=== PATIENT | male | born 1970 | race Caucasian/White ===

== ENCOUNTER 2019-08-21 08:22 | Emergency (ER) | payer SELFPAY ==
[2019-08-21 08:24] VITALS: BP 161/97; PULSE 94; RESP 20; TEMP 36.6; O2SAT 96; BMI 37.0
--- NOTE | 2019-08-21 08:33 | ED.VIS.GEN ---
History of Present Illness Chief Complaint: Edema Informant: Patient Onset: Days Context: Gradual Onset Timing: Continuous Current Severity: Moderate Maximum Severity: Moderate Narrative: The patient presents to the emergency department with swelling under his chin. He thinks that he may be having an allergic reaction. He is also had lymphadenopathy that he is been seen here before a few years ago. The patient thinks he may have an underlying allergy to shrimp. He does work at the [employer]. He states his been eating shrimp. He is noted some swelling at the base of his chin. He denies any change in speech. He denies any trouble lying flat. He denies any shortness of breath. He said no fever or chills. Prior similar symptoms: No Recent Illness/Hospitalization: No Past Medical History - Allergies and Home Meds Allergies/Adverse Reactions: Allergies No Known Allergies Allergy (Verified 08/21/19 08:27) Primary Care Physician: Care Physician,No Primary [Primary Care Provider] - Prior records reviewed: Yes Past Medical History: None Smoking Status: Current every day smoker Review of Systems General: Denies: Chills, Fever, Sweats Eyes: Denies: Visual changes - bilaterally, Diplopia ENT: Denies: Rhinorrhea, Sore throat Cardiovascular: Denies: Chest pain, Palpitations Respiratory: Denies: Dyspnea, Cough, Dyspnea on exertion Gastrointestinal: Denies: Abdominal pain, Nausea, Vomiting, Diarrhea, Melena, Hematochezia Genitourinary: Denies: Dysuria, Hematuria, Frequency Musculoskeletal: Denies: Back pain, Extremity Pain Skin: Denies: Rash, Wounds Neurological: Denies: Headache, Weakness, Numbness Physical Exam Vital Signs/Narrative: Vital Signs Temp Pulse Resp BP Pulse Ox 08/21/19 08:24 98 F 94 20 H 161/97 H 96 Inital Vital Signs reviewed: Yes General: Well nourished, Well developed, No Acute Distress Head: Normocephalic, Atraumatic Eyes: Perrl, EOMI ENT: Moist mucous membranes, No rhinorrhea, TM's clear. Negative for: Nasal congestion Neck: Supple, Nontender, - - Tender lymphadenopathy in the anterior cervical chain. Oropharynx is widely patent. Submental space is soft. No trismus. No stridor. Cardiovascular: Regular rate, Regular rhythm, No murmurs Respiratory: No distress, CTA bilaterally, Chest nontender Abdomen: Soft, Nontender, Nondistended, Normal bowel sounds Back: Nontender, Normal Inspection Extremities: Nontender, No edema Skin: Normal color, No rash Neurological: Alert, Oriented x3, Cranial nerves II-XII grossly intact, Normal Strength, Normal Sensation Psychological: Normal affect, Normal Mood Diagnostic/Tx/Re-eval - Medical Decision Making My suspicion is that the patient is likely having a lymphadenitis. I am not sure if this is allergic or infectious. He does have some widespread dental disease, but no focal abscess. The patient will be given a dose of Decadron. Also can place him on clindamycin. Again, this area is soft. There is no evidence of airway compromise. I do feel he is safe for outpatient therapy. He is comfortable with this plan of care. Impression 1. Cervical lymphadenitis ED Disposition - Plan for ED Patient: Instructions: CERVICAL ADENITIS, Antiobiotic Treatment Prescriptions: Clindamycin [Cleocin] 300 mg PO 4X/DAY #80 cap Prescription Printed Referrals: Care Physician,No Primary [Primary Care Provider] -
[2019-08-21] MEDS: dexAMETHasone 10 MG/ML Vial PO.IVFORM (08:43)
== END 2019-08-21 08:52 | disposition home or self-care (01) ==
LOC: ED 08:41
PROVIDERS: Emergency Provider Emergency Medicine
DX: I88.8 Other nonspecific lymphadenitis (principal); F17.200 Nicotine dependence, unspecified, uncomplicated
CPT/HCPCS: 99282

== ENCOUNTER 2019-12-18 01:13 | Inpatient (IN) | payer SELFPAY ==
[2019-12-18] VITALS (8 sets, daily range): BP systolic 145–162; BP diastolic 60–120; PULSE 60–88; RESP 16–21; TEMP 36.6–36.7; O2SAT 93–98; BMI 43.6; BMI 38.2; BMI 38.3
--- NOTE | 2019-12-18 01:26 | CT_ITS ---
STUDY: CT ABDOMEN AND PELVIS WITHOUT CONTRAST REASON FOR EXAM: Male, 49 years old. ABD PAIN X 4 DAYS, CONSTIPATION RADIATION DOSAGE (If Supplied By Facility): CTDIvol = ( 18.30 ) mGy, DLP = ( 1304.58 ) mGycm TECHNIQUE: Transaxial images were obtained from the dome of the diaphragm to the symphysis pubis without oral contrast, and without intravenous contrast. Sagittal and coronal images were reconstructed. Individualized dose optimization techniques were used for this CT. COMPARISON: None. FINDINGS: The visualized lung bases are unremarkable. The visualized portions of the heart are within normal limits. Normal liver. The gallbladder is contracted. Normal spleen. Minimal strandy surrounding the pancreas suggestive of pancreatitis. Normal bilateral adrenal glands. Normal right kidney. Normal left kidney. Normal visualized stomach. Normal small intestine. There is mild diverticulosis without signs of diverticulitis. Otherwise: Is unremarkable. The appendix is visualized and appears normal. There is mild atherosclerotic calcification of the abdominal aorta, without a demonstrated aneurysm. Normal inferior vena cava. Normal retroperitoneum. Normal urinary bladder. Normal abdominal wall. Degenerative disease at L5-S1 with mild, grade 1 anterolisthesis of L5 on S1. CT/Abdomen/Pelvis W IV Cont ONLY IMPRESSION: Findings suggestive of early/mild pancreatitis, correlation with amylase and lipase recommended. No bowel obstruction. No acute appendicitis. Contracted gallbladder, remainder of abdominal viscera are unremarkable. Electronically Signed: Debo Talbert MD at 3:30 EST , Service support ,
--- NOTE | 2019-12-18 01:26 | EKG12_ITS ---
Test Reason : ABD PAIN Blood Pressure : / mmHG Vent. Rate : 078 BPM Atrial Rate : 078 BPM P-R Int : 166 ms QRS Dur : 084 ms QT Int : 384 ms P-R-T Axes : 038 006 006 degrees QTc Int : 437 ms Normal sinus rhythm Poor R- wave Progression Confirmed by ISABELA PORTER, MELANIE ([id number]), offline editor BETTY MANSFIELD ([id number]) on 12/19/2019 10:03:10 AM Referred By: Feng Oleary Confirmed By:MELANIE MAR MD
--- NOTE | 2019-12-18 01:27 | ED.VIS.GI ---
History of Present Illness Chief Complaint: Abd Pain Informant: Patient - Abdominal Pain/Flank Pain Onset: Days Context: Gradual Onset Timing: Continuous Quality: Dull Location: RUQ - Nausea/Vomiting/Emesis GI Symptom: Nausea. Negative for: Vomiting - Diarrhea/Melena/Hematochezia GI Symptom: - - Constipation. Negative for: Diarrhea, Melena, Hematochezia Narrative: Patient is a 49-year-old male with no known past medical history presenting with worsening abdominal discomfort. Patient states he started having epigastric/right upper quadrant abdominal pain 3 to 4 days ago. He states his pain is dull and does not radiate. It seems to come and go but is been worse today. He also feels very bloated and he feels like his abdomen is distended. He has had intermittent nausea but no vomiting. He states he has been feeling constipated and since 12 PM, 13 hours ago, he has not passed gas or had a bowel movement. He denies any associated chest pain, shortness of breath or urinary symptoms. He states he is been trying to increase his water intake with no help. He is not recall any aggravating or alleviating factors. He denies any other complaints at this time. Past Medical History - Allergies and Home Meds Allergies/Adverse Reactions: Allergies No Known Allergies Allergy (Verified 12/18/19 01:17) Primary Care Physician: Care Physician,No Primary [Primary Care Provider] - Lives: Roommate Smoking Status: Current every day smoker Alcohol: Occasional Drugs: Marijuana Review of Systems General: Denies: Chills, Fever, Sweats Eyes: Denies: Visual changes - bilaterally, Diplopia ENT: Denies: Rhinorrhea, Sore throat Cardiovascular: Denies: Chest pain, Palpitations Respiratory: Denies: Dyspnea, Cough, Dyspnea on exertion Gastrointestinal: Reports: Abdominal pain, Nausea, Vomiting, Constipation. Denies: Diarrhea, Melena, Hematochezia Genitourinary: Denies: Dysuria, Hematuria, Frequency Musculoskeletal: Denies: Back pain, Extremity Pain Skin: Denies: Rash, Wounds Neurological: Denies: Headache, Weakness, Numbness Physical Exam Vital Signs/Narrative: Vital Signs Temp Pulse Resp BP Pulse Ox 12/18/19 01:13 98.0 F 80 18 162/120 H 98 Inital Vital Signs reviewed: Yes General: Well nourished, Well developed, No Acute Distress Head: Normocephalic, Atraumatic Eyes: Perrl, EOMI ENT: Moist mucous membranes, No rhinorrhea Neck: Supple, Nontender Cardiovascular: Regular rate, Regular rhythm, No murmurs Respiratory: No distress, CTA bilaterally, Chest nontender Abdomen: Soft, Nondistended, Normal bowel sounds, No masses, Tender - epigastric. Negative for: Guarding, Rebound tenderness Back: Nontender, Normal Inspection. Negative for: CVA tenderness Extremities: Nontender, No edema Skin: Normal color, No rash Neurological: Alert, Oriented x3, Cranial nerves II-XII grossly intact, Normal Strength, Normal Sensation Psychological: Normal affect, Normal Mood Diagnostic/Tx/Re-eval Clinical Impression(s) from Imaging Studies Abdomen/Pelvis CT 12/18/19 01:26 IMPRESSION: Findings suggestive of early/mild pancreatitis, correlation with amylase and lipase recommended. No bowel obstruction. No acute appendicitis. Contracted gallbladder, remainder of abdominal viscera are unremarkable. Electronically Signed: Debo Talbert MD at 3:30 EST , Service support , Laboratory Data 12/18/19 12/18/19 12/18/19 01:20 01:20 01:55 WBC 12.0 H RBC 5.87 Hgb 18.2 H* Hct 52.9 MCV 90.1 MCH 31.0 MCHC 34.4 RDW Std Deviation 43.7 RDW Coeff of Jamaal 13.1 Plt Count 212 MPV 10.5 Immature Gran % (Auto) 0.200 Neut % (Auto) 67.1 Lymph % (Auto) 21.4 [place] % (Auto) 8.2 Eos % (Auto) 2.8 Baso % (Auto) 0.3 Absolute Neuts (auto) 8.1 H Absolute Lymphs (auto) 2.57 Nucleated RBC % 0 Diff Path Review May foll Sodium 135 L Potassium 3.9 Chloride 102 Carbon Dioxide 28.0 Anion Gap 5 BUN 15 Creatinine 1.00 Estim Creat Clear Calc 85.38 Est GFR (MDRD) Af Amer 103 Est GFR (MDRD) Non-Af 85 BUN/Creatinine Ratio 15.0 Glucose 132 H Calcium 9.7 Troponin I < 0.015 Lipase 4794 H Urine Color Yellow Urine Clarity Clear Urine pH 6.0 Ur Specific [place] 1.015 Urine Protein Negative Urine Glucose (UA) Normal Urine Ketones Negative Urine Occult Blood Negative Urine Nitrite Negative Urine Bilirubin Negative Urine Urobilinogen Normal Ur Leukocyte Esterase Negative Urine RBC 0 SEEN Urine WBC 0 SEEN Ur Squamous Epith Cells 0 SEEN Urine Bacteria 0 SEEN Urine Mucus 0 SEEN - Medical Decision Making Patient is evaluated for 4 to 5 days of worsening epigastric abdominal pain. He appears nontoxic in no acute distress. His have tenderness in his epigastric region. Patient is hypertensive initially. He does not regularly go to a doctor. CBC, CMP, lipase, troponin and UA are checked. Lab work is grossly normal except for elevated lipase which is consistent with pancreatitis. This fits patient's clinical picture. Patient is given a liter of fluids as well as Zofran, IV Pepcid and morphine in the emergency room. Patient does have improvement of his symptoms with IV morphine. He states he would like to be admitted for further pain control and fluids. I think this is reasonable given his degree of elevated lipase and symptoms. Patient is stable for general medical floor at time of disposition. Patient's hemoglobin is elevated. Likely he is hemoconcentrated. He is given a second liter of IV fluids. Patient does state that he used to drink heavily but does not anymore. He states his last drink was the day before his symptoms started. He states he only had one beer at that time. This could be the cause of his pancreatitis. ED Disposition - Plan for ED Patient: Diagnosis: Acute pancreatitis Referrals: Care Physician,No Primary [Primary Care Provider] -
[2019-12-18 01:37] LABS: Absolute Lymphocyte Count 2.57 X10^3/uL (0.83-4.51); Absolute Neutrophil Count 8.1 X10^3/uL (2.0-7.7); Basophil# 0.04 X10^3/uL; Basophil% 0.3 % (0-1); Eosinophil# 0.34 X10^3/uL; Eosinophils% 2.8 % (0-5); Hematocrit 52.9 % (40-54); Lymphocyte # 2.57 X10^3/ul (4.0); Lymphocyte % 21.4 % (19-41); Mean Corp Hgb Conc 34.4 g/dL (32-36); Mean Corpuscular Volume 90.1 fL (80-94); Mean Platelet Vol. 10.5 fl (6.2-12.0); Monocyte# 0.98 X10^3/uL; Monocyte% 8.2 % (0-10); NRBC Flagged by Analyzer 0 % (0-5); Neutrophil # 8.06 X10^3/uL (2.7-7.7); Neutrophil % 67.1 % (47-70); Platelet Count 212 K/mm3 (150-450); RBC Distribution Width CV 13.1 % (11.6-14.6); RBC Distribution Width SD 43.7 fl (35.1-43.9); Red Blood Count 5.87 M/mm3 (4.6-6.2)
[2019-12-18] MEDS: Famotidine 200 MG/20 ML MDV 20 MG in 0.9% Normal Saline (Pres. free 8 ML 300 MG IV (01:48)
[2019-12-18] MEDS: 0.9% Normal Saline 1,000 ML 1000 ML IV (01:48)
[2019-12-18] MEDS: Ondansetron 4 MG/2 ML Vial IV (01:48)
[2019-12-18 01:52] LABS: Anion Gap 5 (5-15); BUN 15 mg/dL (7-18); Calcium,Total 9.7 mg/dL (8.5-10.1); Chloride 102 mmol/L (98-107); EST Glomerular Filtration Rate 85 mL/min (>60); Est Glom Filt Rate - Afr Amer 103 mL/min (>60); Estimated Creatinine Clearance 85.38 ml/min; Glucose 132 mg/dL (74-106); Lipase 4794 U/L (73-393); Potassium 3.9 mmol/L (3.5-5.1); Sodium Level 135 mmol/L (136-145)
[2019-12-18 02:01] LABS: Hemoglobin 18.2 g/dL (13.0-16.5)
[2019-12-18 02:06] LABS: Bacteria 0 SEEN /hpf (None Seen); Color, Urine Yellow (Yellow); Glucose, Dipstick Normal (Normal); Ketone-Dipstick Negative (Negative); Leukocyte Esterase-Dipstick Negative /ul (Negative); Mucous, Urine 0 SEEN /hpf (<or=2+); Nitrite-Dipstick Negative (Negative); Occult Blood-Urine Negative /ul (Negative); Protein-Dipstick Negative (Negative); Red Blood Cells-Urine 0 SEEN /hpf (0-5); Specific Gravity, Urine 1.015 (1.002-1.030); Squamous Epithelial Cells - UA 0 SEEN /hpf (0-5); Urine Bilirubin Dipstick Negative (Negative); Urine Clarity Clear (Clear); Urine Urobilinogen Normal (Normal); White Blood Cells 0 SEEN /hpf (0-5)
[2019-12-18] MEDS: morphine 8 MG/ML Syringe 6 MG IV (02:31)
--- NOTE | 2019-12-18 03:52 | PCM.HP.STD ---
Problem List (1) Alcohol abuse Status: Acute (2) Acute pancreatitis Status: Acute History of Present Illness Date of Admission: 12/18/19 Chief Complaint: abdominal pain The patient is a 49 year old M with a significant history of alcoholism who presents emergency department with upper abdominal pain. His abdominal pain is constant with a severity 4-5 on a scale of 1-10. Occasionally his pain increases to an 8. He describes his pain as aching with intermittent stabbing pain. He denies any ameliorating or aggravating factors. Associated with symptoms is mild nausea. His bowels moved a day before presentation. He reports that he drinks heavily. Last time he drank was about 3 days ago. He drinks beer. At times he drinks 2-3 beers per day. Other times he drank about 12 bottles of beer. At the emergency department his lipase is found to be severely elevated. Past Medical History Medical History: Medical History (Last Updated 12/18/19 @ 04:41 by Feng Oleary MD) No previous significant medical history Allergies No Known Allergies Allergy (Verified 12/18/19 01:17) Home Medications: Ambulatory Orders Medication Instructions Recorded NK 12/18/19 Surgical History: - - Surgery to correct pyloric stenosis when he was a child. Lives: Roommate Smoking Status: Current every day smoker Alcohol: Heavy Drugs: Marijuana - *Family History Maternal History Items: Diabetes Paternal History Items: - - Patient does not know paternal medical history. Review of Systems Constitutional: Denies: Chills, Fever, Weight Change HEENT: Denies: Head Aches, Sinus Congestion, Sinus Drainage Cardiovascular: Denies: Chest Pain, Palpitations Respiratory: Denies: Cough, Shortness of breath at rest, Sputum production Gastrointestinal: Reports: Abdominal Pain, Nausea. Denies: Vomiting Genitourinary: Denies: Dysuria Musculoskeletal: Denies: Joint Pain, Joint Tenderness Skin: Denies: Rash, Wounds Neurological: Denies: Numbness, Tingling, Focal weakness Psychiatric: Denies: Anxiety, Depression, Homicidal Ideations, Suicidal Ideations Hematologic/ Lymphatic: Denies: Easy Bruising, Easy Bleeding VTE Information - Inpt Only VTE Present on Admission: No VTE Mechan Device Prophylaxis: None VTE Pharm Prophylaxis ordered?: Yes Patient Problems: Active and Suspected Problems Acute pancreatitis (Acute) Alcohol abuse (Acute) - Physical Exam Vitals/I&O's: Vital Signs Temp Pulse Resp BP Pulse Ox 98.0 F 80 18 162/120 H 98 12/18/19 01:13 12/18/19 01:13 12/18/19 01:13 12/18/19 01:13 12/18/19 01:13 Oxygen Delivery Method Room Air Weight: 126.3 kg Body Mass Index (BMI) 43.6 Intake and Output for Last 24 Hours 12/16/19 12/17/19 12/18/19 23:59 23:59 23:59 Intake Total Balance General: Alert, Oriented x3, Cooperative HEENT: Atraumatic, PERRLA, EOMI, Normocephalic Neck: Supple, No JVD, Negative Carotid Bruits Lungs: Clear to auscultation, Normal air movement Cardiovascular: Regular rate, No murmurs Abdomen: Bowel Sounds Present, Soft, Tender Extremities: No edema, Capillary Refill Less than 3 Seconds Skin: No rashes, No breakdown Musculoskeletal: No Tenderness to Palpation of Joints or Extremities Neurological: Cranial nerves II-XII grossly intact Psych/Mental Status: Normal Affect, Appropriate Laboratory Results 12/18/19 01:20: WBC 12.0 H, RBC 5.87, Hgb 18.2 H*, Hct 52.9, MCV 90.1, MCH 31.0, MCHC 34.4, RDW Std Deviation 43.7, RDW Coeff of Jamaal 13.1, Plt Count 212, MPV 10.5, Immature Gran % (Auto) 0.200, Neut % (Auto) 67.1, Lymph % (Auto) 21.4, [place] % (Auto) 8.2, Eos % (Auto) 2.8, Baso % (Auto) 0.3, Absolute Neuts (auto) 8.1 H, Absolute Lymphs (auto) 2.57, Nucleated RBC % 0, Diff Path Review March12/18/19 01:20: Sodium 135 L, Potassium 3.9, Chloride 102, Carbon Dioxide 28.0, Anion Gap 5, BUN 15, Creatinine 1.00, Estim Creat Clear Calc 85.38, Est GFR (MDRD) Af Amer 103, Est GFR (MDRD) Non-Af 85, BUN/Creatinine Ratio 15.0, Glucose 132 H, Calcium 9.7, Troponin I < 0.015, Lipase 4794 H 12/18/19 01:55: Urine Color Yellow, Urine Clarity Clear, Urine pH 6.0, Ur Specific [place] 1.015, Urine Protein Negative, Urine Glucose (UA) Normal, Urine Ketones Negative, Urine Occult Blood Negative, Urine Nitrite Negative, Urine Bilirubin Negative, Urine Urobilinogen Normal, Ur Leukocyte Esterase Negative, Urine RBC 0 SEEN, Urine WBC 0 SEEN, Ur Squamous Epith Cells 0 SEEN, Urine Bacteria 0 SEEN, Urine Mucus 0 SEEN Current Medications Sodium Chloride () 1,000 mls @ 999 mls/hr IV .Q1H1M ONE Stop: 12/18/19 04:43 Assessment/Plan All Active Problems Acute pancreatitis (Acute) Alcohol abuse (Acute) The patient is a 49 year old M with a significant history of alcoholism who presents at the emergency department with upper abdominal pain; alcoholism and elevated lipase consistent with acute pancreatitis. Acute Pancreatitis Received NSS IV fluid bolus AT the emergency department. Start patient on lactated Ringer's Get stat lipid level. We will keep patient n.p.o. for ultrasound of her right upper quadrant. Abdomen pelvis CT showed a contracted gallbladder. Morphine prn for pain. Zofran as needed for nausea. Alcoholism We will put on CIWA protocol with as needed Ativan. While n.p.o. we will give one-time dose of thiamine IV; folic acid IV and multivitamin IV. Anticipate that patient will be started on a diet on and medication can be changed to p.o. if necessary. Check liver profile. Check magnesium. Tobacco abuse Counseled Declined nicotine patch Marijuana abuse Counseled. DVT prophylaxis SCD. Code Visit Inpatient E&M: 16435 Init Hosp L3
[2019-12-18] MEDS: 0.9% Normal Saline 1,000 ML 999 ML IV (04:20)
[2019-12-18 04:44] LABS: Magnesium 1.8 mg/dL (1.6-2.6)
[2019-12-18 05:03] LABS: Cholesterol 219 mg/dL (200); High Density Lipoprotein 32 mg/dL; Triglycerides 344 mg/dL; Very Low Density Lipoprotein 69 mg/dL (5-40)
[2019-12-18 05:04] LABS: AST(SGOT) 24 U/L (15-37); Alanine Aminotransfer ALT/SGPT 36 U/L (16-61); Albumin, Serum 3.5 g/dL (3.2-5.0); Alkaline Phosphatase 95 U/L (45-117); Bilirubin, Direct < 0.05 mg/dL (0.00-0.30); Globulin 3.9 g/dL (2.2-4.2); Protein, Total 7.4 g/dL (6.4-8.2)
[2019-12-18] MEDS: Morphine 2 MG/ML Syringe IV ×3 (05:25→19:50)
[2019-12-18] MEDS: Lactated Ringers 1,000 ML 250 ML IV ×5 (05:27→23:59)
--- NOTE | 2019-12-18 05:55 | US_ITS ---
STUDY: ABDOMINAL ULTRASOUND - RIGHT UPPER QUADRANT REASON FOR VISIT: Male, 49 years old RUQ PAIN, PANCREATITIS TECHNIQUE: Ultrasound evaluation of the right upper quadrant was performed with real-time and static dubose-scale imaging. TECHNICAL QUALITY: Limited. Examination limited by bowel gas. COMPARISON: None. FINDINGS: Liver: The liver measures 14.2 cm. There is increased echogenicity consistent with fatty infiltration. The bile ducts are within normal limits. There is hepatic color flow. The direction of portal flow is hepatopetal. There is no demonstrated mass lesion. Gallbladder: Normal distended gallbladder. The gallbladder wall is slightly thickened and measures 3.8 mm. There is a negative sonographic Gonzalez''s sign. There is no pericholecystic fluid. There are no gallstones. Common Bile Duct (C.B.D.): The common bile duct measures 4.8 mm. Pancreas: There is nonvisualization of the pancreas due to overlying bowel gas. Right Kidney: Normal size of the right kidney. The right kidney measures 11.6 cm x 5.5 cm x 6.9 cm. Normal renal cortex. The right cortex measures 2.1 cm. There is no demonstrated renal mass or cyst. There is no right hydronephrosis. US/Abdomen Limited IMPRESSION: Fatty infiltration of the liver. Mild degree of the gallbladder wall thickening. Electronically Signed: Casey Pemberton, at 10:05 EST , Service support ,
[2019-12-18] MEDS: Enoxaparin 40 MG/0.4 ML Syringe SC (09:21)
--- NOTE | 2019-12-18 10:22 | PN_ITS ---
Patient Problems: Active and Suspected Problems Acute pancreatitis (Acute) Alcohol abuse (Acute) Reason for Visit: pancreatitis Subjective: Pain better, but still ongoing. Pain in RUQ. Never had pancreatitis before. IN the past few years has cut back his alcohol. Was drinking an 18-pack/daily, now down to 6 pack or sometimes less/day. Vitals/I&O's: Vital Signs Temp Pulse Resp BP Pulse Ox 36.6 C 75 19 H 148/103 H 93 12/18/19 09:19 12/18/19 09:19 12/18/19 09:19 12/18/19 09:19 12/18/19 09:19 Oxygen Delivery Method Room Air Weight: 124.4 kg Body Mass Index (BMI) 38.2 Intake and Output for Last 24 Hours 12/16/19 12/17/19 12/18/19 23:59 23:59 23:59 Intake Total 2668.03 / 2668.03 Output Total 350 / 350 Balance 2318.03 / 2318.03 General: Alert, No apparent distress HEENT: Atraumatic, Normocephalic Oral: Moist Mucosa, No Gingival or Mucosal Lesions/ Ulcerations Neck: No Nodes, Trachea Midline Lungs: Clear to auscultation, Normal air movement, No rhonchi, No wheeze, No rales Cardiovascular: Regular rate, Regular Rhythm, Normal S1, Normal S2, No murmurs Abdomen: Bowel Sounds Present, Soft, Non-Distended, No Hepato-splenomegaly, Tender - RUQ Extremities: No edema, No Calf Tenderness Skin: No rashes, No breakdown Psych/Mental Status: Normal Affect, Appropriate Laboratory Results 12/18/19 01:20: WBC 12.0 H, RBC 5.87, Hgb 18.2 H*, Hct 52.9, MCV 90.1, MCH 31.0, MCHC 34.4, RDW Std Deviation 43.7, RDW Coeff of [place]al 13.1, Plt Count 212, MPV 10.5, Immature Gran % (Auto) 0.200, Neut % (Auto) 67.1, Lymph % (Auto) 21.4, [place] % (Auto) 8.2, Eos % (Auto) 2.8, Baso % (Auto) 0.3, Absolute Neuts (auto) 8.1 H, Absolute Lymphs (auto) 2.57, Nucleated RBC % 0, Diff Path Review March12/18/19 01:20: Sodium 135 L, Potassium 3.9, Chloride 102, Carbon Dioxide 28.0, Anion Gap 5, BUN 15, Creatinine 1.00, Estim Creat Clear Calc 85.38, Est GFR (MDRD) Af Amer 103, Est GFR (MDRD) Non-Af 85, BUN/Creatinine Ratio 15.0, Glucose 132 H, Calcium 9.7, Troponin I < 0.015, Lipase 4794 H 12/18/19 01:20: Magnesium 1.8 12/18/19 01:20: Total Bilirubin 0.50, Direct Bilirubin < 0.05, AST 24, ALT 36, Alkaline Phosphatase 95, Total Protein 7.4, Albumin 3.5, Globulin 3.9 12/18/19 01:20: Triglycerides 344 H, Cholesterol 219 H, LDL Cholesterol 118, VLDL Cholesterol 69 H, HDL Cholesterol 32 L 12/18/19 01:55: Urine Color Yellow, Urine Clarity Clear, Urine pH 6.0, Ur Specific [place] 1.015, Urine Protein Negative, Urine Glucose (UA) Normal, Urine Ketones Negative, Urine Occult Blood Negative, Urine Nitrite Negative, Urine Bilirubin Negative, Urine Urobilinogen Normal, Ur Leukocyte Esterase Negative, Urine RBC 0 SEEN, Urine WBC 0 SEEN, Ur Squamous Epith Cells 0 SEEN, Urine Bacteria 0 SEEN, Urine Mucus 0 SEEN Current Medications Enoxaparin Sodium (Lovenox) 40 mg SC DAILY [facility] Last Admin: 12/18/19 09:21 Dose: 40 mg Documented by: Glucagon () 1 mg IM .X1 PRN PRN Reason: Hypoglycemia Lactated Ringer's () 1,000 mls @ 250 mls/hr IV .Q4H [facility] Last Infusion: 12/18/19 08:00 Dose: 250 mls/hr Documented by: Dextrose (Dextrose 10%-Water) 250 mls @ 999 mls/hr IV .Q16M PRN; Protocol PRN Reason: HYPOGLYCEMIA Lorazepam (Ativan) 2 mg PO Q2H PRN PRN; Protocol PRN Reason: CIWA score > 8 but <15 Lorazepam (Ativan) 2 mg PO UD PRN; Protocol PRN Reason: CIWA score >/=15. Lorazepam (Ativan) 2 mg IV Q2H PRN PRN; Protocol PRN Reason: CIWA score > 8 but <15 Lorazepam (Ativan) 2 mg IV UD PRN; Protocol PRN Reason: CIWA score >/=15. Morphine Sulfate () 2 mg IV Q3H PRN PRN PRN Reason: Pain Score 6-10/10 Last Admin: 12/18/19 05:25 Dose: 2 mg Documented by: Ondansetron HCl (Zofran) 4 mg IV Q8H PRN PRN PRN Reason: NAUSEA/VOMITING Sodium Chloride () 10 - 40 ml IV UD PRN PRN Reason: SALINE FLUSH STROKE Vital Signs/Narrative: Vital Signs Temp Pulse Resp BP Pulse Ox 12/18/19 09:19 36.6 C 75 19 H 148/103 H 93 12/18/19 08:01 96 Medical Necessity - Tobacco Use Smoking Status: Current every day smoker Tobacco Use: Cigarettes Assessment/Plan All Active Problems Acute pancreatitis (Acute) Alcohol abuse (Acute) 1. acute pancreatitis * suspect due to alcohol * continue with IVF, pain control and antiemetics * US abd pending. May need to consult general surg if evidence of gallstones or choledocholithiasis 2. Alcohol abuse * advised cessation * thiamine and folate * no evidence of wd at this time. 3. VTE proph: enoxaparin Code Visit Procedures: Other Procedure - See Report - non-billable rounding
--- NOTE | 2019-12-18 11:45 | CASEMGMT ---
SIMONE CM Face to Face with patient for initial transition planning/care coordination assessment. RN CM introduced self and role at [facility]. Patient lying in bed, alert and oriented. Patient willing to participate in assessment and is able to answer all questions appropriately. Care providers, pharmacy, and demographics verified. Patient wishes to discharge home, denies need for home health at this time. Patient states he has no further needs or concerns at this time. CM to follow for discharge planning needs that may arise. PCP: No PCP. List of PCPs given to patient. Specialists: none Preferred Pharmacy: [facility] Insurance: [employer] Prescription Benefit: none Living Will/HPOA: none LNOK: Friend, Living Arrangements: Patient lives in an apartment with roommate. Patient is independent at home. Transportation: self/friend DME/HHC: Patient denies needs for DME or HHC at this time. Patient states he smoke 1/2 pack cigarette per day and drinks 6 pack of beer per day. Patient is interested in resources with quitting. SW notified for request for resources. Disposition Plan: Patient to discharge home with family support and follow-up plans in place. Vale JUARES, RN, CM
[2019-12-18 12:24] LABS: Pathologist Review Reviewed
--- NOTE | 2019-12-18 15:35 | CASEMGMT ---
Social Work Consult: Substance Abuse Informant: c java developer Met with patient in room. Introduced self as well as manager social work role. Patient agreeable to meet with this manager social work. Broached topic of substance abuse for patient. Patient stating to drink 12-18 12ounce beers a day but that this can fluctuate and at times patient will only drink a few or none at all. Patient stating there was also a time when patient would drink a bottle of liqueur in a day but it has been sometime since I did that. Patient denies any history of seeking help for alcohol abuse. Patient is interested in information. This manager social work providing patient with resources on substance abuse including AA meeting times and dates. Patient is not wanting to be set up with any appointments for intake at this time. Patient stating to also smoke daily, provided patient with information on smoking cessation program with [facility], patient was open to this. Patient denies any mental health history and states to have support from friends. Patient family lives in [place]. 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 Patient goal oriented. Patient with positive affect but also stating to have a headache due to patient being NPO at this time. Patient has own apartment that patient shared with a roommate. Noting that patient also does not have a primary care physician or insurance. Provided patient with medicaid application and information on [facility]. Patient welcoming resources and information. Active listening and support provided. Patient is stating that the last few months have been stressful due to life stressors but that things are getting better. Patient denies any active suicidal thoughts or history of. Social work to continue to follow if any further needs arise. Nia MANE, TOM
--- NOTE | 2019-12-18 16:49 | CHAPLAIN ---
Type of Pastoral Visit _x__ Initial Visit ___ Follow-up Visit ___ On-call Visit ___ General Patient Visit ___ Spiritual Assessment ___ Family Conference ___ Bereavement ___ Rapid Response ___ Code Blue ___ Other (describe below) Pastoral Care Referral From _x__ Patient ___ Family ___ Nurse ___ Physician ___ Proof Technician Helper ___ Food And Beverage Order Clerk ___ Other (describe below) Sacrament/Intervention _x__ Active listening ___ Anointing ___ Tenriism ___ Bereavement ___ Communion _x__ Ella exploration ___ _x__ Life review _x__ Prayer ___ Reconciliation ___ Sacrament of Sick _x__ Supportive presence ___ Wedding ___ Other (describe below) Pastoral Comments patient welcomes spiritual support and listening ear; pt admits to need for changes in his life; pt concerned about possible surgery and about his job; pt would benefit from follow up and more support and direction on what is available for addiction recovery services
[2019-12-18] MEDS: 0.9% Saline Lock 10 ML Syringe IV ×2 (19:50→23:59)
[2019-12-19] MEDS: Lactated Ringers 1,000 ML 250 ML IV ×2 (03:14→07:06)
[2019-12-19 03:16] VITALS: BP 144/86; PULSE 77; RESP 16; TEMP 37; O2SAT 94
[2019-12-19] MEDS: Morphine 2 MG/ML Syringe IV (04:17)
[2019-12-19 06:00] LABS: Absolute Neutrophil Count 5.4 X10^3/uL (2.0-7.7); Basophil# 0.02 X10^3/uL; Basophil% 0.2 % (0-1); Eosinophil# 0.36 X10^3/uL; Eosinophils% 4.3 % (0-5); Hematocrit 51.9 % (40-54); Hemoglobin 17.2 g/dL (13.0-16.5); Lymphocyte % 22.7 % (19-41); Mean Corp Hgb Conc 33.1 g/dL (32-36); Mean Corpuscular Hgb 30.7 pg (27.0-32.0); Mean Corpuscular Volume 92.5 fL (80-94); Mean Platelet Vol. 10.5 fl (6.2-12.0); Monocyte# 0.64 X10^3/uL; Monocyte% 7.7 % (0-10); NRBC Flagged by Analyzer 0 % (0-5); Neutrophil # 5.41 X10^3/uL (2.7-7.7); Neutrophil % 64.7 % (47-70); Platelet Count 192 K/mm3 (150-450); RBC Distribution Width CV 13.2 % (11.6-14.6); RBC Distribution Width SD 45.1 fl (35.1-43.9); Red Blood Count 5.61 M/mm3 (4.6-6.2); White Blood Count 8.4 K/mm3 (4.4-11.0)
[2019-12-19 06:30] LABS: Anion Gap 5 (5-15); BUN 7 mg/dL (7-18); BUN/Creat Ratio 9.3 RATIO (10-20); Calcium,Total 9.3 mg/dL (8.5-10.1); Chloride 106 mmol/L (98-107); Creatinine, Serum 0.75 mg/dL (0.70-1.30); EST Glomerular Filtration Rate 118 mL/min (>60); Est Glom Filt Rate - Afr Amer 143 mL/min (>60); Estimated Creatinine Clearance 129.68 ml/min; Glucose 120 mg/dL (74-106); Lipase 235 U/L (73-393); Potassium 4.1 mmol/L (3.5-5.1); Sodium Level 137 mmol/L (136-145)
[2019-12-19 09:23] VITALS: BP 136/97; PULSE 65; RESP 12; TEMP 36.7; O2SAT 97
[2019-12-19] MEDS: Enoxaparin 40 MG/0.4 ML Syringe SC (09:39)
[2019-12-19] MEDS: Folic Acid 1 MG Tablet PO (09:39)
[2019-12-19] MEDS: Thiamine Hydrochloride 100 MG Tablet PO (09:39)
--- NOTE | 2019-12-19 10:46 | DCINST_ITS ---
- Discharge Diagnoses Current Active Problems: Current Active and Chronic Problems Acute pancreatitis (Acute) Alcohol abuse (Acute) You will use the following diet at home:: No restrictions, Other - No alcohol Your food should be the consistency of: Regular Your liquids should be the consistency of: Regular/Thin Discharge Activity: Return to Normal Activity Call your doctor if you observe: - - worsening abdominal pain Additional Instructions: Follow up with addiction recovery services. Allergies/Adverse Reactions: Allergies No Known Allergies Allergy (Verified 12/18/19 01:17) Medications to take at Discharge Multivitamin [Animal Chews] 1 each PO DAILY #1 tab.chew 12/19/19 The following prescriptions were given: Multivitamin [Animal Chews] 1 each PO DAILY #1 tab.chew Primary Care Physician: Care Physician,No Primary [Primary Care Provider] - Test Results: Test results from this visit will be discussed in further detail at your follow- up appointment, if applicable. Please Follow Up With: Bridgette Hamlin MD - primary care physicain When: 2-4 weeks Proposed Discharge Date: 12/19/19
--- NOTE | 2019-12-19 10:49 | PCM.DC.SUM ---
Discharge Date and Diagnosis - Problem List Patient Problems: Active and Suspected Problems Acute pancreatitis (Acute) Alcohol abuse (Acute) Date of Admission: 12/18/19 Date of Discharge: 12/19/19 - Primary Discharge Diagnosis Active and Suspected Problems Acute pancreatitis (Acute) Alcohol abuse (Acute) Hospital Course and Treatment Imaging Results: Clinical Impression(s) from Imaging Studies Abdomen/Pelvis CT 12/18/19 01:26 IMPRESSION: Findings suggestive of early/mild pancreatitis, correlation with amylase and lipase recommended. No bowel obstruction. No acute appendicitis. Contracted gallbladder, remainder of abdominal viscera are unremarkable. Electronically Signed: Debo Talbert MD at 3:30 EST , Service support , Abdomen Ultrasound 12/18/19 05:55 IMPRESSION: Fatty infiltration of the liver. Mild degree of the gallbladder wall thickening. Electronically Signed: Casey Pemberton, at 10:05 EST , Service support , Operations: None Procedures: None Summary of Care Provided: The patient is a 49 year old M presents with abdominal pain. Found to have acute pancreatitis with lipase 4794. He received IVF, pain control and antiemetics. Lipase then normalized to 235. He had an US showed mild BG wall thickening, but negative burton's sign. Told patient that this pancreatitis is likely attributable to his alcohol. Patient states that he has cut back his alcohol from 18 beers per day to about a 6 pack/day. Encouraged him to discontinue alcohol altogether. Patient was seen by the electric train driver services to give him some information about some addiction services to follow-up with his which is what he would like to do. Patient tolerated his breakfast today and patient will be discharged home in stable condition. I told the patient that if he does drink again he could develop pancreatitis. I also did tell him about chronic pancreatitis as well if that is an issue if he does continue to drink. [] Patient Problems: Active and Suspected Problems Acute pancreatitis (Acute) Alcohol abuse (Acute) - Physical Exam Vitals/I&O's: Vital Signs Temp Pulse Resp BP Pulse Ox 36.7 C 65 12 136/97 H 97 12/19/19 09:23 01/22/20 09:23 12/19/19 09:23 12/19/19 09:23 12/19/19 09:23 Oxygen Delivery Method Room Air Weight: 124.4 kg Body Mass Index (BMI) 38.2 Intake and Output for Last 24 Hours 12/17/19 12/18/19 12/19/19 23:59 23:59 23:59 Intake Total 7504.70 / 7504.70 2425.00 / 2425.00 Output Total 4350 / 4350 650 / 650 Balance 3154.70 / 3154.70 1775.00 / 1775.00 General: Alert, No apparent distress HEENT: Atraumatic, Normocephalic Oral: Moist Mucosa, No Gingival or Mucosal Lesions/ Ulcerations Neck: No Nodes, Trachea Midline Lungs: Clear to auscultation, Normal air movement, No rhonchi, No wheeze, No rales Cardiovascular: Regular rate, Regular Rhythm, Normal S1, Normal S2, No murmurs Abdomen: Bowel Sounds Present, Soft, Non-Distended, Tender - mild epigastric Extremities: No edema, No Calf Tenderness Psych/Mental Status: Normal Affect, Appropriate Laboratory Results 12/18/19 01:20: Diff Path Review Reviewed 12/19/19 05:44: WBC 8.4, RBC 5.61, Hgb 17.2 H, Hct 51.9, MCV 92.5, MCH 30.7, MCHC 33.1, RDW Std Deviation 45.1 H, RDW Coeff of Jamaal 13.2, Plt Count 192, MPV 10.5, Immature Gran % (Auto) 0.400, Neut % (Auto) 64.7, Lymph % (Auto) 22.7, Dooly % (Auto) 7.7, Eos % (Auto) 4.3, Baso % (Auto) 0.2, Absolute Neuts (auto) 5.4, Absolute Lymphs (auto) 1.90, Nucleated RBC % 0 12/19/19 05:44: Sodium 137, Potassium 4.1, Chloride 106, Carbon Dioxide 26.0, Anion Gap 5, BUN 7, Creatinine 0.75, Estim Creat Clear Calc 129.68, Est GFR (MDRD) Af Amer 143, Est GFR (MDRD) Non-Af 118, BUN/Creatinine Ratio 9.3 L, Glucose 120 H, Calcium 9.3, Lipase 235 Current Medications Enoxaparin Sodium (Lovenox) 40 mg SC DAILY [facility] Last Admin: 12/19/19 09:39 Dose: 40 mg Documented by: Folic Acid (Folic Acid) 1 mg PO DAILY@0800 [facility] Last Admin: 12/19/19 09:39 Dose: 1 mg Documented by: Glucagon () 1 mg IM .X1 PRN PRN Reason: Hypoglycemia Dextrose (Dextrose 10%-Water) 250 mls @ 999 mls/hr IV .Q16M PRN; Protocol PRN Reason: HYPOGLYCEMIA Lorazepam (Ativan) 2 mg PO Q2H PRN PRN; Protocol PRN Reason: CIWA score > 8 but <15 Lorazepam (Ativan) 2 mg PO UD PRN; Protocol PRN Reason: CIWA score >/=15. Lorazepam (Ativan) 2 mg IV Q2H PRN PRN; Protocol PRN Reason: CIWA score > 8 but <15 Lorazepam (Ativan) 2 mg IV UD PRN; Protocol PRN Reason: CIWA score >/=15. Morphine Sulfate () 2 mg IV Q3H PRN PRN PRN Reason: Pain Score 6-10/10 Last Admin: 12/19/19 04:17 Dose: 2 mg Documented by: Ondansetron HCl (Zofran) 4 mg IV Q8H PRN PRN PRN Reason: NAUSEA/VOMITING Sodium Chloride () 10 - 40 ml IV UD PRN PRN Reason: SALINE FLUSH Last Admin: 12/18/19 23:59 Dose: 10 ml Documented by: Thiamine HCl (Vitamin B1) 100 mg PO DAILYCM [facility] Last Admin: 12/19/19 09:39 Dose: 100 mg Documented by: Discharge Diet: No Restrictions Discharge Activity: Return to Normal Activity Call your doctor if you observe: - - worsening abdominal pain Home Medications: Medications to take at Discharge Multivitamin [Animal Chews] 1 each PO DAILY #1 tab.chew 12/19/19 Following Prescrptions Were Given to Patient: Multivitamin [Animal Chews] 1 each PO DAILY #1 tab.chew Primary Care Physician: Care Physician,No Primary [Primary Care Provider] - Please Follow Up With: Bridgette Hamlin MD - primary care physicain When: 2-4 weeks Disposition: Home Minutes spent on discharge:: 32 Patient Condition:: Good Medical Necessity - Tobacco Use Smoking Status: Current every day smoker Tobacco Use: Cigarettes Meaningful Use Info Meaningful Use Diagnoses (Choose all that apply): None applicable Code Visit Inpatient E&M: 27552 Disch Hosp
--- NOTE | 2019-12-19 12:43 | NURSING ---
Reviewed student charting
== END 2019-12-19 11:05 | disposition home or self-care (01) | DRG 440 ==
LOC: ED 01:46 → MS3 04:19
PROVIDERS: Admitting Provider Hospitalist; Emergency Provider Emergency Medicine; Referring Provider Hospitalist
DX: K85.90 Acute pancreatitis without necrosis or infection, unspecified (principal); F12.10 Cannabis abuse, uncomplicated; F10.20 Alcohol dependence, uncomplicated; F17.210 Nicotine dependence, cigarettes, uncomplicated; Z83.3 Family history of diabetes mellitus; Y90.9 Presence of alcohol in blood, level not specified
CPT/HCPCS: 36415; 74177; 76705; 80048; 80061; 80076; 81001; 83690; 83735; 84484; 85025; 93005; 99284; J7030; J7040; J7120; Q9967; A4216; J2405; J3490

== ENCOUNTER 2021-04-21 16:08 | Emergency (ER) | payer MEDICAID, SELFPAY ==
[2019-12-18 04:33] VITALS: BMI 38.2
[2021-04-21 16:10] VITALS: BP 162/90; PULSE 84; RESP 16; TEMP 36.9; O2SAT 93; BMI 41.5
--- NOTE | 2021-04-21 16:56 | EX.ED.VIS.UR ---
HPI HPI - URI History of Present Illness Chief Complaint: Sore Throat Informant: patient Onset/Context/Timing Onset: Yesterday Context: Gradual Onset Timing: Continuous Quality: Dull Location: Throat Worsened by: Swallowing Associated Symptoms Associated Symptoms: Myalgias Narrative Narrative: Patient presents with a sore throat that began yesterday. Patient states it is gradually gotten worse. Patient describes the pain is dull. Patient admits to some general myalgias. Patient denies any nausea or vomiting. Patient denies any fevers or chills. states that the patient did have an episode of sweating last night. Patient denies any cough. Patient states his pain is worse with swallowing. Patient denies any headache or sinus pressure. ROS ROS ED Constitutional Constitutional ED: Reports sweats; Denies chills or fever(s) Eyes Eyes: Denies blurry vision or change in vision ENT ENT ED: Denies rhinorrhea or sore throat Cardiovascular Cardiovascular: Denies chest pain or palpitations Respiratory/Chest Respiratory/Chest: Denies cough or dyspnea Gastrointestinal Gastrointestinal: Denies diarrhea, nausea or vomiting Genitourinary Genitourinary ED: Denies dysuria or hematuria Musculoskeletal Musculoskeletal: Reports neck pain; Denies back pain Integumentary Denies abscess or rash Neurologic Neurologic: Denies headache(s) or weakness Allergic/Immunologic Allergic/Immunologic ED: Denies mouth swelling or urticaria [facility] Medical History No previous significant medical history Home Medications pediatric multivitamin 1 ea PO DAILY #1 tab.chew 12/19/19 [Rx Last Taken Unknown] Allergy/AdvReac Type Severity Reaction Status Date / Time No Known Allergies Allergy Verified 04/21/21 16:09 Social History Smoking Status: Current every day smoker tobacco type: cigarettes EXAM Physical Exam Const Vital Signs: 04/21/21 16:10 Temperature 98.5 F Temperature Source Temporal Pulse Rate 84 Respiratory Rate 16 Blood Pressure 162/90 H Blood Pressure Mean 114 Pulse Ox 93 Oxygen Delivery Method Room Air Positive well nourished, well developed and obese General Appearance ED: well developed Nutritional Appearance: obese HEENT Reports moist mucous membranes normocephalic and atraumatic Throat: posterior oropharynx abnormal Positive for erythema and exudates Neck supple and no JVD General: lymphadenopathy anterior cervical Resp normal respiratory effort and clear to auscultation bilaterally Cardio no murmurs Rate: regular rate Rhythm: regular rhythm GI non-tender and non-distended Auscultation: normoactive bowel sounds Palpation: soft Neuro oriented x3, CN's II-XII intact bilaterally and no sensory deficits noted Sensorium / Orientation: alert Motor Exam: strength 5/5 throughout Psych mental status grossly normal MDM MDM MDM Narrative Medical decision making narrative: Rapid strep was obtained and was negative. Patient was advised of his findings. Patient was advised that this is most likely viral pharyngitis. Patient was instructed drink plenty of fluids. Patient was instructed to take Tylenol or ibuprofen as needed for any pain. Patient was instructed to follow-up with a primary care physician in 5 to 7 days. Patient understood and was agreeable with the plan. All questions were answered. Lab Data Attestation: I reviewed the patient's lab results. Discharge Plan Triage Chief Complaint: Sore Throat ED Provider: Tito Santamaira Dx/Rx/DC Orders Clinical Impression: Acute viral pharyngitis Instructions: ED Pharyngitis, Viral Prescriptions: No Action pediatric multivitamin 1 EACH tablet,chewable 1 ea PO DAILY Qty: 1 RF: 0 Primary Care Provider: Care Physician,No Primary Referrals: Bridgette Hamlin MD [STAFF PHYSICIAN] - 5-7 Days Care Physician,No Primary [Primary Care Provider] - Disposition Disposition: Home, self care
== END 2021-04-21 18:15 | disposition home or self-care (01) ==
PROVIDERS: Emergency Provider Emergency Medicine
DX: J02.8 Acute pharyngitis due to other specified organisms (principal); B97.89 Other viral agents as the cause of diseases classified elsewhere; F17.210 Nicotine dependence, cigarettes, uncomplicated
CPT/HCPCS: 87880; 99282

== ENCOUNTER 2021-07-03 13:56 | Emergency (ER) | payer MEDICAID, SELFPAY ==
[2021-07-03 13:58] VITALS: BP 149/96; PULSE 88; RESP 19; TEMP 36.7; O2SAT 92; BMI 39.2
--- NOTE | 2021-07-03 14:12 | EDS_ITS ---
HPI History of Present Illness Chief Complaint: Cough Informant: patient Onset/Context/Timing Onset: Days (3 to 4 days) Context: Gradual Onset Current Severity: Mild Maximum Severity: Moderate Narrative Narrative: Patient present secondary to body aches and cough. Symptoms of been ongoing for the past 3 or 4 days. No measured fever or chills. 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 His boss recommended he come in for evaluation. Patient does admit to cough with clear sputum production. No change in smell or taste. He did not receive the Covid vaccine. [facility] Medical History No previous significant medical history Pancreatitis Allergy/AdvReac Type Severity Reaction Status Date / Time No Known Allergies Allergy Verified 07/03/21 13:57 Social History Smoking Status: Current every day smoker tobacco type: cigarettes ROS ROS ED Constitutional Constitutional ED: Denies chills or fever(s) Eyes Eyes: Denies change in vision ENT ENT ED: Denies sore throat Cardiovascular Cardiovascular: Denies chest pain Respiratory/Chest Respiratory/Chest: Reports cough and sputum; Denies dyspnea Gastrointestinal Gastrointestinal: Denies abdominal pain, diarrhea, nausea or vomiting Genitourinary Genitourinary ED: Denies dysuria Musculoskeletal Musculoskeletal: Reports myalgias; Denies back pain Integumentary Denies rash Neurologic Neurologic: Denies headache(s) or weakness Psychiatric Psychiatric: Denies anxiety or depression Allergic/Immunologic Allergic/Immunologic ED: Denies urticaria EXAM Physical Exam Const Vital Signs: 07/03/21 13:58 07/03/21 14:26 Temperature 98.1 F Temperature Source Temporal Pulse Rate 88 Respiratory Rate 19 H Respiratory Effort Normal Non-Labored Respiratory Depth Normal Respiratory Pattern Normal Blood Pressure 149/96 H Blood Pressure Mean 113 Pulse Ox 92 Oxygen Delivery Method Room Air Positive well nourished and well developed General Appearance ED: well developed HEENT Reports normocephalic and head/scalp atraumatic Eyes PERRL and EOMs intact bilaterally Neck supple Chest Wall inspection of chest normal and palpation of chest normal Resp normal respiratory effort and clear to auscultation bilaterally Cardio regular rate and regular rhythm GI normal to inspection, nondistended, normoactive bowel sounds Palpation: soft Back/Spine no CVA tenderness Extremity normal to inspection Neuro oriented x3 and no sensory deficits noted Sensorium / Orientation: alert Motor Exam: strength 5/5 throughout Psych mental status grossly normal Skin no rashes or lesions noted MDM MDM MDM Narrative Medical decision making narrative: Portable chest x-ray and rapid Covid test obtained. Lab Data Attestation: I reviewed the patient's lab results. Labs: Rapid Covid test negative. Radiography Chest X-Ray - ED: 1 View, Read by ED Physician, Normal, Heart, Lungs and Mediastinum Treatment and Re-Evaluation Comments:: Chest x-ray per my interpretation reveals no infiltrate. Rapid Covid test is negative. Patient be written off work until free of symptoms for 24 hours. If symptoms persist he is recommended to get a repeat Covid test. Discharge Plan Triage Chief Complaint: Cough ED Provider: Taylor Roger Dx/Rx/DC Orders Clinical Impression: Acute viral bronchitis Instructions: ED Bronchitis, No Antibiotic (Adult) Stand Alone Forms: ED Work / School Excuse Primary Care Provider: Care Physician,No Primary Referrals: Bridgette Hamlin MD [STAFF PHYSICIAN] - As Needed Care Physician,No Primary [Primary Care Provider] - Disposition Disposition: Home, Self Care
--- NOTE | 2021-07-03 14:25 | RAD_ITS ---
STUDY: X-RAY CHEST REASON FOR EXAM: Male, 50 years old. cough TECHNIQUE: Single AP portable view of the chest. COMPARISON: None. FINDINGS: The lungs are clear and expanded. There is no demonstrated pleural abnormality. Normal size heart. Normal mediastinum and taylor. Normal visualized pulmonary arteries. Normal visualized aortic arch and descending thoracic aorta. Normal visualized thoracic spine. Normal visualized ribs, clavicles, and shoulders. There is no demonstrated abnormality of the visualized soft tissue structures of the upper abdomen. RAD/Chest 1 View (Portable) IMPRESSION: Normal x-ray examination of the chest. Electronically Signed: Bill Porter MD at 16:15 EDT , Service support ,
--- NOTE | 2021-07-03 15:02 | CM.ED ---
CATHY Note Referral Source: Case Find Referral Reason: No Primary Care Physican SW noted that patient has no PCP listed. SW provided patient with list of PCP in the [place] Area. Patient voiced no other issues or needs at this time. Plan: Provided patient with PCP list Yudi WOOD
[2021-07-03 15:12] VITALS: BP 124/69; PULSE 17; RESP 16; O2SAT 98
== END 2021-07-03 15:13 | disposition home or self-care (01) ==
LOC: ED 15:07
PROVIDERS: Emergency Provider Emergency Medicine
DX: J20.8 Acute bronchitis due to other specified organisms (principal); F17.210 Nicotine dependence, cigarettes, uncomplicated
CPT/HCPCS: 71045; 87426; 99283

== ENCOUNTER 2022-10-22 16:11 | Emergency (ER) | payer MEDICAID, SELFPAY ==
[2022-10-22 16:15] VITALS: BP 148/94; PULSE 78; RESP 22; TEMP 37.2; O2SAT 94; BMI 40.1
--- NOTE | 2022-10-22 16:37 | RAD_ITS ---
STUDY: X-RAY CHEST REASON FOR EXAM: Male, 51 years old. CHEST PAIN cough TECHNIQUE: XR Chest 2 Views COMPARISON: 07/03/2021 FINDINGS: There is no demonstrated pleural abnormality. Normal size heart. Normal mediastinum and taylor. Normal visualized pulmonary arteries. Normal visualized aortic arch and descending thoracic aorta. Normal visualized thoracic spine. Normal visualized ribs, clavicles, and shoulders. There is no demonstrated abnormality of the visualized soft tissue structures of the upper abdomen. RAD/Chest PA and Lateral IMPRESSION: There are no acute findings. Electronically Signed: Rudi Santos MD at 17:04 EST ,
--- NOTE | 2022-10-22 17:01 | EX.ED.DYSGE1 ---
HPI <TREE Arias - Last Filed: 10/22/22 17:56> History of Present Illness Chief Complaint: General Illness Narrative Narrative: Patient is a 51-year-old male that smokes 1 pack/day, patient takes no medications daily, he presents to the emergency department 3 days of generalized cough, fatigue. 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 Patient states he has chills however no fevers. He states to have yellow to clear sputum production. Patient denies any sick contacts. PFS <TREE Arias - Last Filed: 10/22/22 17:56> [facility] Medical History (Updated 10/22/22 @ 17:55 by TREE Arias) No previous significant medical history Pancreatitis Allergy/AdvReac Type Severity Reaction Status Date / Time No Known Allergies Allergy Verified 10/22/22 16:15 Social History Smoking Status: Current every day smoker tobacco type: cigarettes ROS <TREE Arias - Last Filed: 10/22/22 17:56> ROS ED ROS Narrative Constitutional: Negative for fever, weight loss, weakness. Positive for chills Eyes: Negative for vision loss, vision change, double vision ENT: Negative for any sore throat, ear pain, congestion Cardiovascular: Negative for any chest pain, tightness, palpitations Respiratory: Negative for any , hemoptysis, dyspnea, dyspnea on exertion, orthopnea. Positive for cough, sputum production Gastrointestinal: Negative for any abdominal pain, nausea, vomiting, diarrhea, constipation, blood in stool, blood in vomit : Negative for any urinary frequency, dysuria, retention, blood in urine Muscle skeletal: Negative for any muscle joint pain, stiffness, arthralgias, neck pain, back pain. Positive for myalgias Neurological: Negative for any headache, syncope, numbness or tingling, dizziness Skin: Negative for any rashes, lumps, itching, abrasions, lacerations Psychiatric: Negative for any depression, anxiety, stress, suicidal ideation, homicidal ideation Hematologic: Negative for any easy bruising, excessive bruising, easy bleeding Allergies: Negative for any eczema, hives, rash EXAM <TREE Arias - Last Filed: 10/22/22 17:56> Physical Exam Narrative Exam Narrative: Vital signs reviewed. Patient appears to be in no respiratory distress. Patient stable HEET: Head normocephalic atraumatic, TMs clear bilaterally. Posterior pharynx is clear, moist mucous membranes. Nares clear bilaterally. Neck: Supple with no lymphadenopathy or tenderness. No signs of meningismus, negative jolt sign. Cardiac: Regular rate and rhythm no murmurs gallops or rubs, equal peripheral pulses bilaterally. Respiratory: Patient has some expiratory wheeze on the right upper lobe, the remainder the lung sounds were clear.. No chest tenderness. Abdomen: Soft, nontender, nondistended. No abdominal bruit or pulsatile masses. No hepatosplenomegaly Extremities: No peripheral edema, no signs of gross trauma or deformity. Active full range of motion of all extremities. Neuro: Cranial nerves II through XII intact, no focal neurological deficits. Skin: Clean dry and intact with no rash, purpura, petechiae, vesicles or pustules. Backs/flank: No CVA tenderness, no midline spinal tenderness, no deformity. Psych: Normal mood and affect. No SI, HI or acute psychosis. Const Vital Signs: 10/22/22 16:15 10/22/22 16:52 Temperature 98.9 F Temperature Source Temporal Pulse Rate 78 Respiratory Rate 22 H Respiratory Effort Normal Respiratory Pattern Normal Blood Pressure 148/94 H Blood Pressure Mean 112 Pulse Ox 94 Oxygen Delivery Method Room Air <Dr. Carlos Gilliam DO - Last Filed: 10/22/22 18:02> Physical Exam Const Vital Signs: 10/22/22 16:15 10/22/22 16:52 Temperature 98.9 F Temperature Source Temporal Pulse Rate 78 Respiratory Rate 22 H Respiratory Effort Normal Respiratory Pattern Normal Blood Pressure 148/94 H Blood Pressure Mean 112 Pulse Ox 94 Oxygen Delivery Method Room Air MDM <TREE Arias - Last Filed: 10/22/22 17:56> MDM Radiography Diagnostic Testing: Clinical Impression(s) from Imaging Studies Chest X-Ray 10/22/22 16:37 IMPRESSION: There are no acute findings. Electronically Signed: Rudi Santos MD at 17:04 EST Reading Location ID and State: [facility] / [place] , Service support , Treatment and Re-Evaluation Narrative: Patient appears well, patient appears nontoxic, vital signs are stable. Patient presents to the emergency department with complaints of cough, congestion for 2 to 3 days. Patient did receive a two-view chest x-ray, this was interpreted by the ER physician as no acute findings. Patient did receive a rapid COVID, rapid flu, rapid COVID-19 was positive. This does explain the patient's symptoms. Patient will have ample time off work. He was given a albuterol inhaler here. Instructed to quit smoking and to maintain hydration. Patient given return precautions. <Dr. Carlos Gilliam, DO - Last Filed: 10/22/22 18:02> [facility] Narrative Medical decision making narrative: This patient was seen with a PA/CERTIFIED NURSE MIDWIFE Individually assessed they patient including history and physical. I have reviewed everything on the chart that is available and agree with the documentation provided by the PA/CERTIFIED NURSE MIDWIFE including discussion about the assessment, treatment plan, discussion, and return precautions. Patient presenting with 2 to 3 days of viral symptoms. Vital signs are stable and he is afebrile. Incarcerated he was tested for COVID, influenza. Patient's COVID came back positive. Patient was given a work note. He was given albuterol inhaler here to help with his shortness of breath symptoms. Impression: 1. COVID-19 Radiography Diagnostic Testing: Clinical Impression(s) from Imaging Studies Chest X-Ray 10/22/22 16:37 IMPRESSION: There are no acute findings. Electronically Signed: Rudi Santos MD at 17:04 EST Reading Location ID and State: [facility] / [place] , Service support , Discharge Plan Triage Chief Complaint: General Illness ED Midlevel Provider: Timo Cao ED Provider: Carlos Gilliam Dx/Rx/DC Orders Clinical Impression: COVID, Cough Instructions: Coronavirus Disease 2019 (COVID-19): Caring for Yourself or Others Stand Alone Forms: ED Work / School Excuse Primary Care Provider: Care Physician,No Primary Referrals: Care Physician,No Primary [Primary Care Provider] - Activity Restrictions/Additional Instructions: You are positive for COVID-19. Please maintain hydration. You may return to work next week. Please return for any worsening symptoms. Disposition Disposition: Home, Self Care
[2022-10-22] MEDS: Albuterol Sulfate 8 gm Inhaler (60 puffs) 2 PUFF INHALATION (18:05)
== END 2022-10-22 18:12 | disposition home or self-care (01) ==
PROVIDERS: Emergency Provider Student in an Organized Health Care Education/Training Program; Visit Provider Student in an Organized Health Care Education/Training Program
DX: U07.1 COVID-19 (principal); F17.210 Nicotine dependence, cigarettes, uncomplicated
CPT/HCPCS: 71046; 87428; 99282

== ENCOUNTER 2023-05-01 12:43 | Emergency (ER) | payer MEDICAID, SELFPAY ==
[2023-05-01 12:44] VITALS: BP 200/107; PULSE 73; RESP 18; TEMP 36.2; O2SAT 93; BMI 38.5
--- NOTE | 2023-05-01 13:13 | ED.VIS.DENTA ---
HPI History of Present Illness Chief Complaint: Dental [facility] Medical History (Updated 05/01/23 @ 13:[address] Victor Manuel Frank DO) No previous significant medical history Pancreatitis Home Medications amoxicillin 875 mg-potassium clavulanate 125 mg tablet 1 tab PO BID 7 days #14 tabs 05/01/23 [Rx Last Taken Unknown] Allergy/AdvReac Type Severity Reaction Status Date / Time No Known Allergies Allergy Verified 05/01/23 12:44 Social History Smoking Status: Current every day smoker tobacco type: cigarettes EXAM Physical Exam Const Vital Signs: 05/01/23 12:44 Temperature 97.2 F L Temperature Source Temporal Pulse Rate 73 Respiratory Rate 18 Blood Pressure 200/107 H Blood Pressure Mean 138 Pulse Ox 93 Oxygen Delivery Method Room Air MDM MDM MDM Narrative Medical decision making narrative: HISTORY OF PRESENT ILLNESS: 52-year-old male here with left-sided dental pain. States this started several days ago. Has not seen a dentist. Denies any sore throat, difficulty swallowing, stridor, neck stiffness, swelling to the jaw REVIEW OF SYSTEMS: Pertinent positives: Dental pain Pertinent negatives: Stridor, drooling, swelling any of the jaw PHYSICAL EXAM: Nursing triage notes reviewed, Vital signs reviewed Constitutional: please see mdm HENT: MMM, no evidence of dental abscess, no submandibular edema, no tonsillar exudates or erythema, uvula midline, patient was controlling secretions, no drooling Eyes: Pupils equal round and reactive to light, Extraocular muscles intact Neck: No stridor, no JVD, full neck ROM Lungs: Clear to auscultation, No wheezing or rales. No increased work of breathing, no conversational dyspnea, no accessory muscle use, no nasal flaring. No respiratory distress noted Heart: Regular rate and rhythm, No murmurs, No rubs and No gallops, 2+ distal pulses (radial, femoral, posterior tibial) in all extremities MEDICAL DECISION MAKING: Chief Complaint: Dental pain External records reviewed:No recent ED visits MDM Narrative: The patient was hemodynamically stable, afebrile, nontoxic-appearing. Exam not consistent with dental abscess I considered the following differential diagnosis: Dental abscess, ANUG, Ludewig's angina, RPA, STRUCTURAL ANALYST, dental caries, gingivitis Exam most consistent with dental infection. No evidence of Moreno's angina, RPA, STRUCTURAL ANALYST, ANUG or dental abscess. Patient was given strict return precautions, follow-up instructions, prescription for Augmentin and local dental resources Factors affecting care: Alcohol abuse, acute pancreatitis Social determinants of health: Current every day smoker History obtained from others: The patient's Shared decision making: I will have a discussion with the patient and or visitors regarding risk/benefits of further testing or admission. They will be made aware of of the risk/benefits inherent in this decision they will be given the opportunity to voice understanding. Consults: None Discharge Plan Triage Chief Complaint: Dental ED Provider: Victor Manuel Frank Dx/Rx/DC Orders Clinical Impression: Pain, dental Instructions: ED Dental Pain Prescriptions: New amoxicillin-pot clavulanate 875-125 mg tablet 1 tab PO BID 7 Days Qty: 14 0RF Stand Alone Forms: ED Work / School Excuse Primary Care Provider: Care Physician,No Primary Referrals: Bridgette Hamlin MD [Med Staff - Active Staff] - Activity Restrictions/Additional Instructions: Thank you for trusting us with your care today! Please take Tylenol (2 pills, 650 mg), ibuprofen (2 pills, 400 mg) every 6 hours as needed for pain and fever control. Please take Augmentin as prescribed. Please finish entire course. Please return to the emergency department if your symptoms change or worsen. Specifically if develop swelling of your jaw, drooling, difficulty swallowing, if he cannot tolerate medicine by mouth due to nausea and vomiting. Please follow with your primary care physician for further outpatient evaluation and management. Disposition Disposition: Home, Self Care
[2023-05-01] MEDS: Amox/Clavulanate 875 MG Tablet PO (13:19)
[2023-05-01] MEDS: Ibuprofen 200 MG Tablet 400 MG PO (13:28)
[2023-05-01] MEDS: Acetaminophen 325 MG Tablet 650 MG PO (13:29)
== END 2023-05-01 13:59 | disposition home or self-care (01) ==
PROVIDERS: Emergency Provider Emergency Medicine; Visit Provider Emergency Medicine
DX: K08.89 Other specified disorders of teeth and supporting structures (principal); F17.210 Nicotine dependence, cigarettes, uncomplicated
CPT/HCPCS: 99283

== ENCOUNTER 2023-05-02 02:31 | Emergency (ER) | payer MEDICAID, SELFPAY ==
[2023-05-02 02:32] VITALS: BP 168/105; PULSE 67; RESP 20; TEMP 35.6; O2SAT 97; BMI 38.7
--- NOTE | 2023-05-02 02:43 | ED.VIS.DENTA ---
HPI History of Present Illness Chief Complaint: Dental Detail of Chief Complaint: Dental pain, gum swelling and facial swelling Informant: patient and spouse/S.O. Onset/Context/Timing Onset: Today Context: Sudden Onset Timing: Continuous Quality: Facial swelling and dental pain Location: Buccal side of tooth #18 and 19 Current Severity: Moderate Maximum Severity: Moderate Worsened by: Infection Relieved by: - (Nothing) Associated Symptoms Assocated Symptom - Dental: jaw swelling and face swelling; Negative for fever, cold sensitivity or hot sensitivity Narrative Narrative: Patient is a 52-year-old male who was seen earlier today for dental infection. He was placed on antibiotic and NSAID. He presents because of facial swelling and increased pain. He denies fever or chills. [place] history medic fever, heart murmur, SBE or being immune suppressed. Patient does not have a dentist. He states he was given dental sheet. He denies drooling. He denies change in voice. Prior similar symptoms: Yes Recent Illness/Hospitalization: Yes [facility] Medical History No previous significant medical history Pancreatitis Home Medications amoxicillin 875 mg-potassium clavulanate 125 mg tablet 1 tab PO BID 7 days #14 tabs 05/01/23 [Rx Last Taken Unknown] oxycodone-acetaminophen 5 mg-325 mg tablet 1 tab PO Q6H PRN PRN Pain 3 days #12 TABLETS 05/02/23 [Rx Last Taken Unknown] Allergy/AdvReac Type Severity Reaction Status Date / Time No Known Allergies Allergy Verified 05/01/23 12:44 Social History (Updated 05/02/23 @ 02:[address] Danish Li MD) household members: significant other Smoking Status: Current every day smoker tobacco type: cigarettes substance use type: does not use ROS ROS ED Constitutional Constitutional ED: Denies chills, fever(s) or subjective Eyes Eyes: Denies blurry vision or change in vision ENT ENT ED: Reports other Details: Facial swelling, dental pain ; Denies ear pain, rhinorrhea or sore throat Cardiovascular Cardiovascular: Denies chest pain or palpitations Respiratory/Chest Respiratory/Chest: Denies dyspnea Gastrointestinal Gastrointestinal: Denies nausea or vomiting Integumentary Denies rash Neurologic Neurologic: Denies headache(s), paresthesias or weakness Allergic/Immunologic Allergic/Immunologic ED: Reports mouth swelling; Denies tongue swelling or urticaria EXAM Physical Exam Const Vital Signs: 05/02/23 02:32 Temperature 96.1 F L Temperature Source Temporal Pulse Rate 67 Respiratory Rate 20 H Blood Pressure 168/105 H Blood Pressure Mean 126 Pulse Ox 97 Oxygen Delivery Method Room Air Positive well nourished, well developed and obese General Appearance ED: well developed; Negative for NAD or pallor Nutritional Appearance: obese HEENT HEENT Narrative: Patient has swelling over the body of the mandible on the left. There is evidence of a periodontal abscess with fluctuance on the buccal surface of tooth #18 and 19. Patient has poor dentition with multiple caries. He also has evidence of gingivitis and periodontal disease. Uvula is midline. There is no deviation of the uvula. There is no deviation tongue with protrusion. There is no dysphonia. There is no drooling. There is no firmness to the floor of the mouth. The tongue is not elevated. Teeth and Gingiva: abnormal tooth and associated gingiva Throat: posterior oropharynx normal Eyes PERRL and EOMs intact bilaterally General Eye ED: Negative for pale conjunctiva or scleral icterus Neck no lymphadenopathy, supple and no JVD Neck Narrative: Trachea is midline. There is no inspiratory rider. Resp normal respiratory effort, no retractions and clear to auscultation bilaterally Cardio regular rate, regular rhythm, S1 normal heart sound, S2 normal heart sound and no murmurs Extremity normal to inspection and no joint enlargement Neuro oriented x3, CN's II-XII intact bilaterally and moves all extremities Sensorium / Orientation: alert Psych mental status grossly normal Skin no rashes or lesions noted General Skin Exam: Negative for pallor MDM MDM MDM Narrative Medical decision making narrative: PatientPatient has fluctuance consistent with periodontal abscess. Area expressed some purulent material. Since it is still was fluctuant 11 blade was used to make a small incision with further drainage noted. There is no evidence at this point of facial cellulitis. Agree with antibiotics patient was discharged with. We will place on oral opiate analgesics as well. History & Record Review Discussion w/independent historian: Patient and Significant other Additional record(s) reviewed:: Prior ED visit Procedures Other Procedures Procedure(s): I&D of periodontal abscess using 11 blade. Discharge Plan Triage Chief Complaint: Dental ED Provider: Danish Li Dx/Rx/DC Orders Clinical Impression: Acute periodontal abscess, Dental caries extending into dentine, Dental caries extending into pulp, Acute gingivitis, Periodontal disease, Left facial swelling Instructions: Dental Abscess Prescriptions: New oxycodone-acetaminophen [oxycodone-acetaminophen] 5-325 mg tablet 1 tab PO Q6H PRN PRN (Reason: Pain) 3 Days Qty: 12 0RF No Action amoxicillin-pot clavulanate 875-125 mg tablet 1 tab PO BID 7 Days Qty: 14 0RF Primary Care Provider: Care Physician,No Primary Referrals: Care Physician,No Primary [Primary Care Provider] - Activity Restrictions/Additional Instructions: Contact dentist on the list you were given starting later this morning. If you have drooling, change in voice or difficulty breathing return to the emergency department immediately Take antibiotics until gone Take pain medicine as prescribed Disposition Disposition: Home, Self Care
[2023-05-02] MEDS: HYDROcodone Bitartrate/Apap 5/325 Tablet PO (02:51)
== END 2023-05-02 02:58 | disposition home or self-care (01) ==
PROVIDERS: Emergency Provider Emergency Medicine; Visit Provider Emergency Medicine
DX: L02.01 Cutaneous abscess of face (principal); K02.9 Dental caries, unspecified; K08.89 Other specified disorders of teeth and supporting structures; F17.210 Nicotine dependence, cigarettes, uncomplicated; K05.00 Acute gingivitis, plaque induced; K05.6 Periodontal disease, unspecified; R22.0 Localized swelling, mass and lump, head
CPT/HCPCS: 10060; 41800; 64999; 99283; A4216

== ENCOUNTER 2024-07-28 10:31 | Emergency (ER) | payer SELFPAY ==
[2024-07-28 10:31] VITALS: BP 140/101; PULSE 69; RESP 18; TEMP 35.9; O2SAT 90; BMI 39.3
[2024-07-28 10:33] VITALS: BP 164/104; PULSE 73; RESP 20; O2SAT 95
--- NOTE | 2024-07-28 10:54 | RAD_ITS ---
EXAM: XR CHEST, 2 VIEWS CLINICAL INDICATION: cough TECHNIQUE: Frontal and lateral views of the chest. COMPARISON: XR Chest dated 10/22/2022 FINDINGS: LUNGS AND PLEURAL SPACES: Normal. No consolidation or edema. No pneumothorax. No effusion. HEART: Normal heart size. MEDIASTINUM: No mediastinal or hilar mass. BONES/JOINTS: No acute abnormality. RAD/Chest PA and Lateral IMPRESSION: No acute cardiopulmonary abnormality. No interval change. Electronically Signed: Mohamud Belle MD at 11:44 EDT ,
--- NOTE | 2024-07-28 10:54 | EX.ED.DYSGE1 ---
HPI History of Present Illness Chief Complaint: Cold Sx Informant: patient Narrative Narrative: 53-year-old male presenting to the emergency room not feeling well. Patient states that on developed some nasal congestion and into Tuesday had cough. Slight sore throat. He noted that this morning he had a lot of pressure in his forehead. He notes subjective fever chills. Nonproductive cough. He states this feels different than when he had COVID previously. He notes a history of pneumonia and Staphylococcus bacteremia. Currently takes no prescription medications. 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 He would like to not miss as much work as possible. [facility] Medical History Pancreatitis No previous significant medical history Home Medications ?Medication ?Instructions ?Recorded ?Last Taken ?Type amoxicillin 875 mg-potassium 1 tab PO BID 7 days #14 tabs 05/01/23 Unknown Rx clavulanate 125 mg tablet oxycodone-acetaminophen 5 mg-325 1 tab PO Q6H PRN PRN Pain 3 days 05/02/23 Unknown Rx mg tablet #12 TABLETS amoxicillin 875 mg-potassium 1 tab PO BID #20 tabs 07/28/24 Unknown Rx clavulanate 125 mg tablet Allergy/AdvReac Type Severity Reaction Status Date / Time No Known Allergies Allergy Verified 07/28/24 10:31 Social History household members: significant other Smoking Status: Current every day smoker tobacco type: cigarettes substance use type: does not use ROS ROS ED Constitutional Constitutional ED: Reports chills and fever(s); Denies weight loss Eyes Eyes: Denies change in vision or diplopia ENT ENT ED: Reports rhinorrhea and sore throat; Denies ear pain Cardiovascular Cardiovascular: Denies chest pain, orthopnea, palpitations or racing heartbeat Respiratory/Chest Respiratory/Chest: Reports cough; Denies dyspnea or orthopnea Gastrointestinal Gastrointestinal: Denies abdominal pain, diarrhea, nausea or vomiting Genitourinary Genitourinary ED: Denies dysuria, hematuria or urinary frequency Musculoskeletal Musculoskeletal: Denies arthralgias or myalgias Integumentary Denies abscess or rash Neurologic Neurologic: Reports headache(s); Denies weakness Psychiatric Psychiatric: Denies anxiety, depression, suicidal ideation or suicidal thoughts Endocrine Endocrinology: Denies polydipsia, polyphagia or polyuria Allergic/Immunologic Allergic/Immunologic ED: Denies mouth swelling, tongue swelling or urticaria EXAM Physical Exam Const Vital Signs: 07/28/24 10:31 07/28/24 10:33 07/28/24 11:23 Temperature 96.7 F L Temperature Source Temporal Pulse Rate 69 73 Respiratory Rate 18 20 H Respiratory Effort Normal Respiratory Pattern Normal Blood Pressure 140/101 H 164/104 H Blood Pressure Mean 114 124 Pulse Ox 90 95 Oxygen Delivery Method Room Air Room Air Positive well nourished and well developed General Appearance ED: well developed HEENT Reports normocephalic, head/scalp atraumatic, TM's clear and moist mucous membranes HEENT Narrative: Mild turbinate edema. Mild oropharyngeal erythema no significant exudates palatal petechiae or evidence of retropharyngeal peritonsillar abscess. Tympanic Membrane ED: Yes TM's clear Eyes PERRL and EOMs intact bilaterally Neck no lymphadenopathy, supple and no JVD Resp normal respiratory effort and clear to auscultation bilaterally Resp Narrative: Frequent cough that is nonproductive. Cardio regular rate, regular rhythm and no murmurs GI normal to inspection, nondistended, normoactive bowel sounds and non-tender Palpation: soft Back/Spine no CVA tenderness and normal ROM Extremity normal to inspection General Extremety ED: Negative for edema General Extremity: Negative for edema Neuro oriented x3 and CN's II-XII intact bilaterally Sensorium / Orientation: alert Motor Exam: strength 5/5 throughout Psych mental status grossly normal Mood & Affect: Negative for depressed or tearful Skin no rashes or lesions noted and no wounds MDM MDM MDM Narrative Medical decision making narrative: Differential diagnosis includes but not limited to pneumonia sinusitis viral syndrome bronchitis My independent interpretation the chest x-ray is no acute process. COVID influenza and RSV swabs were negative. With the frontal headache nasal drainage postnasal drip Berry) to have Augmentin. He understands that this is high likelihood of still being viral but would like to avoid future medical bills if necessary. I do not think that this is an unreasonable plan. History & Record Review Discussion w/independent historian: Patient and Significant other Radiography Diagnostic Testing: Clinical Impression(s) from Imaging Studies Chest X-Ray 07/28/24 10:54 IMPRESSION: No acute cardiopulmonary abnormality. No interval change. Electronically Signed: Mohamud Belle MD at 11:44 EDT , Discharge Plan Triage Chief Complaint: Cold Sx ED Provider: Rich Lopez Dx/Rx/DC Orders Clinical Impression: Sinusitis, Cough Instructions: ED Sinusitis (Antibiotic Treatment) Prescriptions: New amoxicillin-pot clavulanate 875-125 mg tablet 1 tab PO BID Qty: 20 0RF No Action amoxicillin-pot clavulanate 875-125 mg tablet 1 tab PO BID 7 Days Qty: 14 0RF oxycodone-acetaminophen [oxycodone-acetaminophen] 5-325 mg tablet 1 tab PO Q6H PRN PRN (Reason: Pain) 3 Days Qty: 12 0RF Primary Care Provider: Care Physician,No Primary Referrals: Care Physician,No Primary [Primary Care Provider] - Print Language: Djib[place]ian Disposition Disposition: Home, Self Care
[2024-07-28 12:33] VITALS: BP 162/86; PULSE 68; RESP 16; TEMP 36.7; O2SAT 93
[2024-07-28 12:54] VITALS: BP 162/86; PULSE 68; RESP 20; TEMP 36.7; O2SAT 93
== END 2024-07-28 12:55 | disposition home or self-care (01) ==
PROVIDERS: Emergency Provider Emergency Medicine; Visit Provider Emergency Medicine
DX: J02.9 Acute pharyngitis, unspecified (principal); F17.210 Nicotine dependence, cigarettes, uncomplicated; R50.9 Fever, unspecified
CPT/HCPCS: 71046; 87631; 99282

== ENCOUNTER 2024-08-13 12:39 | Emergency (ER) | payer SELFPAY ==
[2024-08-13 12:39] VITALS: BP 161/94; PULSE 73; RESP 20; TEMP 36; O2SAT 94; BMI 42.7
[2024-08-13 13:57] VITALS: BP 161/94; PULSE 73; RESP 20; TEMP 36.6; O2SAT 94
[2024-08-13 13:58] VITALS: O2SAT 94
--- NOTE | 2024-08-13 14:10 | RAD_ITS ---
STUDY: X-RAY CHEST REASON FOR EXAM: Male, 53 years old. Persistent cough TECHNIQUE: PA and lateral views of the chest. COMPARISON: Comparison is made with prior study dated July 28, 2024. FINDINGS: Hyperinflation. The lungs are clear. There is no demonstrated pleural abnormality. Normal size heart. Normal mediastinum and taylor. Normal visualized pulmonary arteries. Normal visualized aortic arch and descending thoracic aorta. Normal visualized thoracic spine. Normal visualized ribs, clavicles, and shoulders. There is no demonstrated abnormality of the visualized soft tissue structures of the upper abdomen. RAD/Chest PA and Lateral IMPRESSION: Hyperinflation. The lungs are clear. Electronically Signed: Casey Pemberton MD at 14:37 EDT ,
--- NOTE | 2024-08-13 14:18 | EX.ED.VIS.UR ---
HPI HPI - URI History of Present Illness Chief Complaint: Cough Informant: patient Narrative Narrative: 53-year-old male with had a nonproductive cough for a little over 2 weeks. Initially was seen here because he was having a lot of sinus pain and congestion with frontal headaches with it, he was put on Augmentin because of the possibility of a bacterial sinus infection but it was suspected that he had a viral etiology at the time, he states all of the sinus stuff went away and is better, but he still has a cough. He is not dyspnea, denies any fevers or chills, denies any leg swelling. 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 No new symptoms. ROS ROS ED Constitutional Constitutional ED: Denies chills or fever(s) Eyes Eyes: Denies change in vision or diplopia ENT ENT ED: Denies rhinorrhea or sore throat Cardiovascular Cardiovascular: Denies chest pain or palpitations Respiratory/Chest Respiratory/Chest: Reports cough; Denies dyspnea Gastrointestinal Gastrointestinal: Denies abdominal pain, diarrhea, nausea or vomiting Genitourinary Genitourinary ED: Denies dysuria or hematuria Musculoskeletal Musculoskeletal: Denies back pain or neck pain Integumentary Denies abscess or rash Neurologic Neurologic: Denies headache(s), paresthesias or weakness Psychiatric Psychiatric: Denies suicidal thoughts [facility] Medical History Pancreatitis No previous significant medical history Home Medications ?Medication ?Instructions ?Recorded ?Last Taken ?Type amoxicillin 875 mg-potassium 1 tab PO BID 7 days #14 tabs 05/01/23 Unknown Rx clavulanate 125 mg tablet oxycodone-acetaminophen 5 mg-325 1 tab PO Q6H PRN PRN Pain 3 days 05/02/23 Unknown Rx mg tablet #12 TABLETS amoxicillin 875 mg-potassium 1 tab PO BID #20 tabs 07/28/24 Unknown Rx clavulanate 125 mg tablet benzonatate 100 mg capsule 200 mg (2 x 100 mg) PO TID PRN PRN 08/13/24 Unknown Rx Cough #20 CAPSULES Allergy/AdvReac Type Severity Reaction Status Date / Time No Known Allergies Allergy Verified 08/13/24 12:41 Social History household members: significant other Smoking Status: Current every day smoker tobacco type: cigarettes substance use type: does not use EXAM Physical Exam Const Vital Signs: 08/13/24 12:39 08/13/24 13:57 08/13/24 13:58 Temperature 96.8 F L 97.8 F Temperature Source Temporal Oral Pulse Rate 73 73 Respiratory Rate 20 H 20 H Respiratory Effort Non-Labored Respiratory Depth Normal Respiratory Pattern Normal Blood Pressure 161/94 H 161/94 H Blood Pressure Mean 116 116 Pulse Ox 94 94 Oxygen Delivery Method Room Air Room Air Room Air Positive well nourished, well developed and obese General Appearance ED: well developed and NAD Nutritional Appearance: obese HEENT Reports moist mucous membranes normocephalic and atraumatic Eyes PERRL and EOMs intact bilaterally Neck full ROM, no lymphadenopathy and supple Resp normal respiratory effort and clear to auscultation bilaterally Cardio regular rate, regular rhythm and no murmurs Rate: Negative for tachycardic GI non-distended Back/Spine General Back: other FROM Extremity normal to inspection General Extremety ED: Negative for edema, pulses abnormal or tenderness General Extremity: Negative for edema or pulses abnormal Neuro oriented x3, CN's II-XII intact bilaterally and no sensory deficits noted Sensorium / Orientation: awake and alert Motor Exam: strength 5/5 throughout Psych mental status grossly normal Skin no rashes or lesions noted and no wounds MDM MDM MDM Narrative Medical decision making narrative: I think this is viral which is why his cough is lingering. He agrees he does not feel worse, he just cannot stop coughing at times. It is nonproductive. He is concerned because he had a really serious pneumonia that landed him an inpatient stay for 8 days, and he states he was really ill. He states as result of that he was told he is at a higher risk of getting pneumonia. Although I suspect this is all viral, he is a large gentleman with a BMI of 43 and I think repeating a two-view chest x-ray although was -2 weeks ago according to records, it is completely reasonable given his pulse ox at 94% on room air. He is amenable to that. Two-view chest x-ray my interpretation negative for pneumonia. Patient reassured, given a prescription for Tessalon Perles, and advised to follow-up if he goes another week without resolution of his cough. Radiography Diagnostic Testing: Clinical Impression(s) from Imaging Studies Chest X-Ray 08/13/24 14:10 IMPRESSION: Hyperinflation. The lungs are clear. Electronically Signed: Casey Pemberton MD at 14:37 EDT , Discharge Plan Triage Chief Complaint: Cough ED Provider: Abdiaziz Villeda Dx/Rx/DC Orders Clinical Impression: Acute viral bronchitis Instructions: ED Bronchitis, No Antibiotic (Adult) Prescriptions: New benzonatate 100 mg capsule 200 mg PO TID PRN PRN (Reason: Cough) Qty: 20 0RF No Action amoxicillin-pot clavulanate 875-125 mg tablet 1 tab PO BID 7 Days Qty: 14 0RF oxycodone-acetaminophen [oxycodone-acetaminophen] 5-325 mg tablet 1 tab PO Q6H PRN PRN (Reason: Pain) 3 Days Qty: 12 0RF amoxicillin-pot clavulanate 875-125 mg tablet 1 tab PO BID Qty: 20 0RF Stand Alone Forms: ED Work / School Excuse Primary Care Provider: Care Physician,No Primary Referrals: Doctor,Your [Non-Staff] - 1 Week if not improving Print Language: Hungarian Disposition Disposition: Home, Self Care
== END 2024-08-13 14:43 | disposition home or self-care (01) ==
LOC: ED 14:35
PROVIDERS: Emergency Provider Emergency Medicine; Visit Provider Emergency Medicine
DX: J20.9 Acute bronchitis, unspecified (principal); F17.210 Nicotine dependence, cigarettes, uncomplicated; E66.9 Obesity, unspecified
CPT/HCPCS: 71046; 99282

== ENCOUNTER 2024-08-21 17:11 | Emergency (ER) | payer SELFPAY ==
[2024-08-21] VITALS (14 sets, daily range): BP systolic 118–164; BP diastolic 72–117; PULSE 59–75; RESP 15–22; TEMP 36.4–36.7; O2SAT 85–99; BMI 43.2
--- NOTE | 2024-08-21 17:47 | EKG12_ITS ---
Test Reason : SOB Blood Pressure : / mmHG Vent. Rate : 066 BPM Atrial Rate : 066 BPM P-R Int : 160 ms QRS Dur : 084 ms QT Int : 422 ms P-R-T Axes : 030 -05 034 degrees QTc Int : 442 ms Normal sinus rhythm Normal ECG Confirmed by Arnaldo Waters ([id number]), manuscript editor EDGARDO ODOM ([id number]) on 08/22/2024 10:33:53 AM Referred By: Confirmed By:Arnaldo Waters
--- NOTE | 2024-08-21 18:00 | EDS_ITS ---
HPI History of Present Illness Chief Complaint: Shortness of Breath Informant: patient Narrative Narrative: Worsening dyspnea and started productive cough today. Tobacco history. States third visit to ED in the month and a half. He states he was seen here initially COVID flu chest x-ray was negative. Still had nonproductive cough and dyspnea. He returned 2 weeks ago again negative workup. Symptoms today worsen therefore came for reevaluation. He states had fevers and chills and changes in taste over a month ago when he first came. He had COVID back in 2019 without hospitalization. Denies chest pains. He does not have a PCP therefore is not on any medications. He does admit to paroxysmal nocturnal dyspnea and snoring at night. No diagnosis of sleep apnea. Reports on the first visit was treated with amoxicillin for sinusitis. Prior similar symptoms: Yes PFSH PFSH Medical History Pancreatitis No previous significant medical history Home Medications ?Medication ?Instructions ?Recorded ?Last Taken ?Type amoxicillin 875 mg-potassium 1 tab PO BID 7 days #14 tabs 05/01/23 Unknown Rx clavulanate 125 mg tablet oxycodone-acetaminophen 5 mg-325 1 tab PO Q6H PRN PRN Pain 3 days 05/02/23 Unknown Rx mg tablet #12 TABLETS amoxicillin 875 mg-potassium 1 tab PO BID #20 tabs 07/28/24 Unknown Rx clavulanate 125 mg tablet benzonatate 100 mg capsule 200 mg (2 x 100 mg) PO TID PRN PRN 08/13/24 Unknown Rx Cough #20 CAPSULES Allergy/AdvReac Type Severity Reaction Status Date / Time No Known Allergies Allergy Verified 08/21/24 17:15 Social History household members: significant other Smoking Status: Current every day smoker tobacco type: cigarettes substance use type: does not use ROS ROS ED Constitutional Constitutional ED: Denies chills, fever(s) or sweats Eyes Eyes: Denies change in vision ENT ENT ED: Denies dysphagia or sore throat Cardiovascular Cardiovascular: Denies chest pain, leg edema, palpitations or racing heartbeat Respiratory/Chest Respiratory/Chest: Reports cough and dyspnea; Denies dyspnea on exertion Gastrointestinal Gastrointestinal: Denies abdominal pain, diarrhea, nausea or vomiting Genitourinary Genitourinary ED: Denies dysuria, hematuria or urinary frequency Musculoskeletal Musculoskeletal: Denies back pain, extremity pain or neck pain Integumentary Denies rash or wounds Neurologic Neurologic: Denies headache(s), paresthesias or weakness EXAM Physical Exam Const Vital Signs: 08/21/24 17:15 08/21/24 17:19 08/21/24 17:40 Temperature 97.6 F L 97.6 F L Temperature Source Oral Oral Pulse Rate 75 75 Respiratory Rate 20 H 20 H Respiratory Effort Respiratory Depth Respiratory Pattern Blood Pressure 164/91 H 164/91 H Blood Pressure Mean 115 115 Pulse Ox 91 91 85 Oxygen Delivery Method Room Air Room Air Room Air Oxygen Flow Rate (L/min) 08/21/24 17:41 08/21/24 17:54 08/21/24 17:56 Temperature Temperature Source Pulse Rate 59 L Respiratory Rate 16 Respiratory Effort Respiratory Depth Respiratory Pattern Normal Blood Pressure Blood Pressure Mean Pulse Ox 92 96 Oxygen Delivery Method Nasal Cannula Nasal Cannula Oxygen Flow Rate (L/min) 2 2 08/21/24 18:19 08/21/24 18:28 08/21/24 19:00 Temperature 97.6 F L 98 F Temperature Source Temporal Oral Pulse Rate 70 74 Respiratory Rate 22 H 17 Respiratory Effort Short of Breath Respiratory Depth Shallow Respiratory Pattern Tachypnea Blood Pressure 164/91 H 145/117 H Blood Pressure Mean 115 126 Pulse Ox 96 99 Oxygen Delivery Method Nasal Cannula Room Air Nasal Cannula Oxygen Flow Rate (L/min) 2 4 08/21/24 19:14 08/21/24 20:00 08/21/24 20:52 Temperature 98.1 F Temperature Source Temporal Pulse Rate 65 67 72 Respiratory Rate 15 18 18 Respiratory Effort Respiratory Depth Respiratory Pattern Blood Pressure 148/87 H 125/72 H 118/74 Blood Pressure Mean 107 89 88 Pulse Ox 92 85 93 Oxygen Delivery Method Nasal Cannula Nasal Cannula Room Air Oxygen Flow Rate (L/min) 4 08/21/24 21:08 Temperature 98 F Temperature Source Pulse Rate 74 Respiratory Rate 15 Respiratory Effort Respiratory Depth Respiratory Pattern Blood Pressure 118/74 Blood Pressure Mean 88 Pulse Ox 94 Oxygen Delivery Method Oxygen Flow Rate (L/min) Positive well nourished and well developed Constitutional Narrative: BMI 43 General Appearance ED: well developed and NAD HEENT Reports moist mucous membranes normocephalic and atraumatic Eyes EOMs intact bilaterally and conjunctivae normal General Eye ED: Yes normal appearance of both eyes Neck no lymphadenopathy and supple General: Negative for tenderness Chest Wall Chest: Negative for tenderness Resp Resp Narrative: Coarse breath sounds lower lobes bilaterally Effort and Inspection: symmetric chest movement; Negative for respiratory distress Cardio regular rate, regular rhythm and no murmurs Peripheral Pulses: pulses 2+ throughout GI normal to inspection, nondistended, normoactive bowel sounds and non-tender Palpation: Negative for guarding or rebound tenderness present Back/Spine no CVA tenderness and no thoracic nor lumbar tenderness Extremity normal to inspection General Extremety ED: Negative for edema or tenderness General Extremity: Negative for edema Neuro oriented x3 and no sensory deficits noted Sensorium / Orientation: awake and alert Skin no rashes or lesions noted and no wounds MDM MDM MDM Narrative Medical decision making narrative: Interventions / MDM: Differential diagnosis: Bronchitis, sleep apnea Diagnosis considered but do not suspect: Pneumonia, pulmonary embolism however image studies all negative. My EKG interpretation: Sinus rate 66, no ST or T wave changes. Imaging independently reviewed and interpreted by myself: 2 view chest x-ray: No acute process. CT PE: No acute process. External documents reviewed: N/A Test considered but not ordered:N/A ED course: Patient productive cough started today had dyspnea for the past month. Reported 85% at rest on the bed was placed on oxygen. History exam likely underlying sleep apnea. Will check EKG labs chest x-ray and recheck COVID flu and RSV. Aerosol treatments ordered. Patient was placed on oxygen by nursing due to falsely becoming hypoxic. COVID flu RSV negative chest x-ray negative. EKG normal. Labs are all stable. Again noted by nursing with hypoxia while sleeping. Therefore CT PE study ordered. Results of CT PE was negative. He is ambulated off oxygen needs at 94% no dyspnea. Discussed likely bronchitis symptoms persisting cough. There is no pneumonia. Discussed likely sleep apnea however he will need further workup as an outpatient to confirm this. Given follow-up as an outpatient. All questions were answered. Re-evaluation: stable Disposition discussed with patient/family/significant other: Patient Case discussed with consulting clinician: N/A This note was generated with [facility] dictation software. It may contain incorrect words, spelling, and punctuation that were not noted in checking the note before signing. Lab Data Attestation: I reviewed the patient's lab results. Labs: Laboratory Results - last 24 hr 08/21/24 18:15 WBC 7.4 RBC 5.60 Hgb 16.6 H Hct 51.5 MCV 92.0 MCH 29.6 MCHC 32.2 RDW Std Deviation 47.8 H RDW Coeff of Jamaal 14.2 Plt Count 158 MPV 10.9 Immature Gran % (Auto) 0.500 Neut % (Auto) 59.8 Lymph % (Auto) 27.6 Bonner % (Auto) 7.7 Eos % (Auto) 4.1 Baso % (Auto) 0.3 Absolute Neuts (auto) 4.4 Absolute Lymphs (auto) 2.04 Nucleated RBC % 0 Sodium 140 Potassium 4.1 Chloride 106 Carbon Dioxide 31.0 Anion Gap 3 L BUN 15 Creatinine 0.78 Estim Creat Clear Calc 160.65 Est GFR (MDRD) Af Amer 134 Est GFR (MDRD) Non-Af 111 BUN/Creatinine Ratio 19.2 Glucose 207 H Calcium 9.1 Radiography Diagnostic Testing: Clinical Impression(s) from Imaging Studies Chest X-Ray 08/21/24 18:23 IMPRESSION: No radiographic evidence of acute cardiopulmonary disease. Electronically Signed: Rogers Taylor DO at 18:33 EDT , Chest CTA 08/21/24 19:23 IMPRESSION: No demonstrated pulmonary embolism or arterial dissection. Electronically Signed: Rogers Taylor DO at 20:07 EDT , Discharge Plan Triage Chief Complaint: Shortness of Breath Other Complaint: Cough ED Provider: Rio Norris Dx/Rx/DC Orders Clinical Impression: Acute viral bronchitis, Cough Instructions: Acute Bronchitis, ED Sleep Apnea, Obstructive Prescriptions: No Action amoxicillin-pot clavulanate 875-125 mg tablet 1 tab PO BID 7 Days Qty: 14 0RF oxycodone-acetaminophen [oxycodone-acetaminophen] 5-325 mg tablet 1 tab PO Q6H PRN PRN (Reason: Pain) 3 Days Qty: 12 0RF amoxicillin-pot clavulanate 875-125 mg tablet 1 tab PO BID Qty: 20 0RF benzonatate 100 mg capsule 200 mg PO TID PRN PRN (Reason: Cough) Qty: 20 0RF Primary Care Provider: Care Physician,No Primary Referrals: Zuri Rosario [Non-Staff] - 1-2 Weeks Care Physician,No Primary [Primary Care Provider] - Activity Restrictions/Additional Instructions: Your workup today including CT chest negative for pulmonary embolism or any infiltrates. COVID and flu negative. You likely have underlying sleep apnea. You will need follow-up with physician outpatient for sleep test. If you take up to 6 weeks for cough to improved. Print Language: Hungarian Disposition Disposition: Home, Self Care Discharge Date/Time: 08/21/24 21:13
--- NOTE | 2024-08-21 18:23 | RAD_ITS ---
INDICATION: cough EXAMINATION/TECHNIQUE: X-RAY - XR Chest 2 Views COMPARISON: August 13, 2024 FINDINGS: LINES/DEVICES: None. LUNGS: No consolidation, edema or effusion. No pneumothorax. MEDIASTINUM AND CARDIOVASCULAR STRUCTURES: Cardiac silhouette not enlarged. Central airways and mediastinal contour are unremarkable. BONES AND SOFT TISSUES: Unremarkable. RAD/Chest PA and Lateral IMPRESSION: No radiographic evidence of acute cardiopulmonary disease. Electronically Signed: Rogers Taylor DO at 18:33 EDT ,
[2024-08-21 18:33] LABS: Absolute Lymphocyte Count 2.04 X10^3/uL (0.83-4.51); Absolute Neutrophil Count 4.4 X10^3/uL (2.0-7.7); Basophil# 0.02 X10^3/uL; Basophil% 0.3 % (0-1); Eosinophils% 4.1 % (0-5); Hematocrit 51.5 % (40-54); Hemoglobin 16.6 g/dL (13.0-16.5); Lymphocyte # 2.04 X10^3/ul (0.83-4.51); Lymphocyte % 27.6 % (19-41); Mean Corp Hgb Conc 32.2 g/dL (32-36); Mean Corpuscular Hgb 29.6 pg (27.0-32.0); Mean Platelet Vol. 10.9 fl (6.2-12.0); Monocyte# 0.57 X10^3/uL; Monocyte% 7.7 % (0-10); NRBC Flagged by Analyzer 0 % (0-5); Neutrophil # 4.43 X10^3/uL (2.7-7.7); Neutrophil % 59.8 % (47-70); Platelet Count 158 K/mm3 (150-450); RBC Distribution Width CV 14.2 % (11.6-14.6); RBC Distribution Width SD 47.8 fl (35.1-43.9); White Blood Count 7.4 K/mm3 (4.4-11.0)
[2024-08-21 18:34] LABS: Anion Gap 3 (5-15); BUN 15 mg/dL (7-18); BUN/Creat Ratio 19.2 RATIO (10-20); Calcium,Total 9.1 mg/dL (8.5-10.1); Chloride 106 mmol/L (98-107); Creatinine, Serum 0.78 mg/dL (0.70-1.30); EST Glomerular Filtration Rate 111 mL/min (>60); Est Glom Filt Rate - Afr Amer 134 mL/min (>60); Estimated Creatinine Clearance 160.65 ml/min; Glucose 207 mg/dL (74-106); Potassium 4.1 mmol/L (3.5-5.1); Sodium Level 140 mmol/L (136-145)
--- NOTE | 2024-08-21 19:23 | CT_ITS ---
STUDY: CTA CHEST REASON FOR EXAM: Male, 53 years old. hypoxia RADIATION DOSAGE (If Supplied By Facility): CTDIvol = ( 48.50 ) mGy, DLP = ( 775.68 ) mGycm TECHNIQUE: The examination was performed with the intravenous administration of IV 100mL [id number]-370. Post-processing of the angiographic images was performed, with multiplanar reformation and 3D reconstruction. The protocol utilizes one or more of the following dose reduction techniques: automated exposure control, adjustment of mA and/or kV according to patient size,and/or use of iterative reconstruction technique. COMPARISON: FINDINGS: Normal enhancement of the main pulmonary artery and right and left pulmonary arteries. Normal enhancement of the bilateral peripheral pulmonary arteries. There is no demonstrated pulmonary embolism. Normal thoracic aorta and visualized great vessels. There is no demonstrated aortic dissection. Normal heart and pericardium. Normal mediastinum. Normal hilar regions. Normal visualized trachea and bronchi. The lungs are well expanded. Normal pulmonary parenchyma. Normal pleura. Normal chest wall structures. Old right ninth rib fracture. Normal visualized upper abdomen. CT/CTA Chest W/WO Contrast IMPRESSION: No demonstrated pulmonary embolism or arterial dissection. Electronically Signed: Rogers Taylor DO at 20:07 EDT Reading Location ID and State: [facility] / [place] Tel [phone], Service support ,
== END 2024-08-21 21:13 | disposition home or self-care (01) ==
PROVIDERS: Emergency Provider Emergency Medicine; Visit Provider Emergency Medicine
DX: J20.9 Acute bronchitis, unspecified (principal); F17.210 Nicotine dependence, cigarettes, uncomplicated; R06.83 Snoring; R05.9 Cough, unspecified
CPT/HCPCS: 71046; 71275; 80048; 85025; 87631; 93005; 94640; 99284; Q9967; A4216

== ENCOUNTER 2024-08-23 09:06 | Emergency (ER) | payer SELFPAY ==
[2024-08-23 09:07] VITALS: BP 174/95; PULSE 76; RESP 22; TEMP 36.5; O2SAT 91; BMI 43.5
[2024-08-23 09:33] VITALS: O2SAT 93
--- NOTE | 2024-08-23 09:35 | ED.VIS.DYS ---
HPI History of Present Illness Chief Complaint: Shortness of Breath Informant: patient and spouse/S.O. Narrative Narrative: Presents for evaluation with reported dyspnea overnight. Recent bronchitis seen by myself 2 days ago. He states overnight woke up 3 times gasping for air. No other reports he has had snoring and apneic events prior to his illness. Denies chest pains. With awakening denies any symptoms. Review of my records [address] angio chest was negative. COVID and flu were negative x 2 with recent workup. Labs were stable. Prior similar symptoms: Yes PFSH PFSH Medical History Pancreatitis No previous significant medical history Home Medications ?Medication ?Instructions ?Recorded ?Last Taken ?Type amoxicillin 875 mg-potassium 1 tab PO BID 7 days #14 tabs 05/01/23 Unknown Rx clavulanate 125 mg tablet oxycodone-acetaminophen 5 mg-325 1 tab PO Q6H PRN PRN Pain 3 days 05/02/23 Unknown Rx mg tablet #12 TABLETS amoxicillin 875 mg-potassium 1 tab PO BID #20 tabs 07/28/24 Unknown Rx clavulanate 125 mg tablet benzonatate 100 mg capsule 200 mg (2 x 100 mg) PO TID PRN PRN 08/13/24 Unknown Rx Cough #20 CAPSULES albuterol sulfate 90 mcg/actuation 1 - 2 puff inhalation Q4H PRN PRN 08/23/24 Unknown Rx aerosol inhaler (Ventolin HFA) Wheezing ##1 guaifenesin 600 mg tablet, 600 mg PO Q12H PRN congestion #60 08/23/24 Unknown Rx extended release 12 hr (Mucinex) tabs Allergy/AdvReac Type Severity Reaction Status Date / Time No Known Allergies Allergy Verified 08/23/24 09:06 Social History household members: significant other Smoking Status: Current every day smoker tobacco type: cigarettes substance use type: does not use ROS ROS ED Constitutional Constitutional ED: Denies chills, fever(s) or sweats Eyes Eyes: Denies change in vision ENT ENT ED: Denies dysphagia or sore throat Cardiovascular Cardiovascular: Reports paroxysmal nocturnal dyspnea; Denies chest pain, leg edema, palpitations or racing heartbeat Respiratory/Chest Respiratory/Chest: Reports dyspnea and paroxysmal nocturnal dyspnea; Denies cough or dyspnea on exertion Gastrointestinal Gastrointestinal: Denies abdominal pain, diarrhea, nausea or vomiting Genitourinary Genitourinary ED: Denies dysuria, hematuria or urinary frequency Musculoskeletal Musculoskeletal: Denies back pain, extremity pain or neck pain Integumentary Denies rash or wounds Neurologic Neurologic: Denies headache(s), paresthesias or weakness EXAM Physical Exam Const Vital Signs: 08/23/24 09:07 08/23/24 09:33 Temperature 97.7 F L Temperature Source Oral Pulse Rate 76 Respiratory Rate 22 H Respiratory Effort Short of Breath Blood Pressure 174/95 H Blood Pressure Mean 121 Pulse Ox 91 Oxygen Delivery Method Room Air Room Air Positive well nourished and well developed Constitutional Narrative: BMI 43. General Appearance ED: well developed and NAD HEENT Reports moist mucous membranes normocephalic and atraumatic Eyes EOMs intact bilaterally and conjunctivae normal General Eye ED: Yes normal appearance of both eyes Neck no lymphadenopathy and supple General: Negative for tenderness Chest Wall Chest: Negative for tenderness Resp normal respiratory effort and normal air movement Effort and Inspection: symmetric chest movement; Negative for respiratory distress Cardio regular rate, regular rhythm and no murmurs Peripheral Pulses: pulses 2+ throughout GI normal to inspection, nondistended, normoactive bowel sounds and non-tender Palpation: Negative for guarding or rebound tenderness present Back/Spine no CVA tenderness and no thoracic nor lumbar tenderness Extremity normal to inspection General Extremety ED: Negative for edema or tenderness General Extremity: Negative for edema Neuro oriented x3 and no sensory deficits noted Sensorium / Orientation: awake and alert Skin no rashes or lesions noted and no wounds MDM MDM MDM Narrative Medical decision making narrative: Interventions / MDM: Differential diagnosis: Obstructive sleep apnea, bronchitis Diagnosis considered but do not suspect: N/A My EKG interpretation: Sinus rate of 67, no ST or T wave changes. Imaging independently reviewed and interpreted by myself: N/A External documents reviewed: N/A Test considered but not ordered: Reordered lab work chest x-ray however he declines ED course: Patient reporting paroxysmal nocturnal dyspnea symptoms overnight. Significant other reporting snoring and apneic symptoms even prior to this. He had extensive workup by myself [address] angiogram chest negative for PE or dissection. He reports his cough is improving Since 2 days ago. Normal lung sounds on exam. EKG was normal. I discussed with patient and reworkup with labs and chest x-ray however likely will be normal. I do not feel repeat CT scan is necessary as his history consistent with sleep apnea. Discussed importance of following up for which they are trying to for sleep study for official diagnosis however he is self-pay. Discussed what ever recommendations will be [id number]. This time can use humidifier vapor rubs with his resolving bronchitis symptoms. The request inhaler which was sent to his pharmacy. Mucinex was also written to try to help with symptoms. Discussed signs and symptoms to return otherwise outpatient follow-up. All questions were answered. Re-evaluation: stable Disposition discussed with patient/family/significant other: Patient and significant other Case discussed with consulting clinician: N/A This note was generated with Dreamscape Blue dictation software. It may contain incorrect words, spelling, and punctuation that were not noted in checking the note before signing. Discharge Plan Triage Chief Complaint: Shortness of Breath ED Provider: Rio Norris Dx/Rx/DC Orders Clinical Impression: MARIMAR (obstructive sleep apnea), Acute viral bronchitis Instructions: Acute Bronchitis, CPAP, ED Sleep Apnea, Obstructive Prescriptions: New albuterol sulfate [Ventolin HFA] 90 mcg/actuation HFA aerosol inhaler 1 - 2 puff inhalation Q4H PRN PRN (Reason: Wheezing) Qty: 1 0RF guaifenesin [Mucinex] 600 mg tablet extended release 12hr 600 mg PO Q12H PRN (Reason: congestion) Qty: 60 0RF No Action amoxicillin-pot clavulanate 875-125 mg tablet 1 tab PO BID 7 Days Qty: 14 0RF oxycodone-acetaminophen [oxycodone-acetaminophen] 5-325 mg tablet 1 tab PO Q6H PRN PRN (Reason: Pain) 3 Days Qty: 12 0RF amoxicillin-pot clavulanate 875-125 mg tablet 1 tab PO BID Qty: 20 0RF benzonatate 100 mg capsule 200 mg PO TID PRN PRN (Reason: Cough) Qty: 20 0RF Primary Care Provider: Care Physician,No Primary Referrals: Zuri Rosario [Non-Staff] - 3-5 Days Care Physician,No Primary [Primary Care Provider] - Activity Restrictions/Additional Instructions: Symptoms consistent with sleep apnea symptoms. Bronchitis symptoms with extensive workup 2 days ago by myself. 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 Will need sleep study for official diagnosis. Since self-pay, may want a look into cost of CPAP machine to use. Print Language: Swedish Disposition Disposition: Home, Self Care
== END 2024-08-23 09:47 | disposition home or self-care (01) ==
PROVIDERS: Emergency Provider Emergency Medicine; Visit Provider Emergency Medicine
DX: J20.9 Acute bronchitis, unspecified (principal); G47.33 Obstructive sleep apnea (adult) (pediatric); F17.210 Nicotine dependence, cigarettes, uncomplicated
CPT/HCPCS: 93005; 99282

== ENCOUNTER 2024-09-08 10:39 | Emergency (ER) | payer SELFPAY ==
[2024-09-08 10:41] VITALS: BP 173/106; PULSE 71; RESP 18; TEMP 36.5; O2SAT 93; BMI 42.1
--- NOTE | 2024-09-08 11:10 | EX.ED.VIS.EY ---
HPI History of Present Illness Chief Complaint: Eye Problem Informant: patient Onset/Context/Timing Location: Bilateral Eyes Onset: Today and Yesterday Context: Gradual Onset Timing: Continuous Current Severity: Mild Maximum Severity: Mild Associated Symptoms Associated Symptoms - Eyes: Drainage, Eyelid swelling and Redness History of injury: No Visual correction: None Narrative Narrative: 53-year-old male history of hypertension. Currently has no primary care physician but is getting 1 next week. Complains of bilateral eyes swelling with discharge since last night. He does not wear glasses nor contacts. No prior eye surgery. Denies any eye problems. Denies any recent trauma. Denies any chemicals in his eyes. Said they been watering more. Denies recent illness. Prior similar symptoms: No Recent Illness/Hospitalization: No PFSH PFSH Medical History Pancreatitis No previous significant medical history Home Medications ?Medication ?Instructions ?Recorded ?Last Taken ?Type amoxicillin 875 mg-potassium 1 tab PO BID 7 days #14 tabs 05/01/23 Unknown Rx clavulanate 125 mg tablet oxycodone-acetaminophen 5 mg-325 1 tab PO Q6H PRN PRN Pain 3 days 05/02/23 Unknown Rx mg tablet #12 TABLETS amoxicillin 875 mg-potassium 1 tab PO BID #20 tabs 07/28/24 Unknown Rx clavulanate 125 mg tablet benzonatate 100 mg capsule 200 mg (2 x 100 mg) PO TID PRN PRN 08/13/24 Unknown Rx Cough #20 CAPSULES albuterol sulfate 90 mcg/actuation 1 - 2 puff inhalation Q4H PRN PRN 08/23/24 Unknown Rx aerosol inhaler (Ventolin HFA) Wheezing ##1 guaifenesin 600 mg tablet, 600 mg PO Q12H PRN congestion #60 08/23/24 Unknown Rx extended release 12 hr (Mucinex) tabs Allergy/AdvReac Type Severity Reaction Status Date / Time No Known Allergies Allergy Verified 09/08/24 10:41 Social History household members: significant other Smoking Status: Current every day smoker tobacco type: cigarettes substance use type: does not use ROS ROS ED ROS Narrative Denies recent illness. Bilateral eyes watering and drainage. Mild lid swelling. Constitutional Constitutional ED: Denies chills or fever(s) Eyes Eyes: Reports other Details: Bilateral of swelling, watering and discharge. ; Denies blurry vision ENT ENT ED: Denies ear pain Cardiovascular Cardiovascular: Denies chest pain Respiratory/Chest Respiratory/Chest: Denies cough Gastrointestinal Gastrointestinal: Denies abdominal pain Genitourinary Genitourinary ED: Denies dysuria Musculoskeletal Musculoskeletal: Denies arthralgias Integumentary Denies abscess Neurologic Neurologic: Denies headache(s) Psychiatric Psychiatric: Denies anxiety Endocrine Endocrinology: Denies polydipsia Hematologic/Lymphatic Hematologic/Lymphatic: Denies easy bleeding Allergic/Immunologic Allergic/Immunologic ED: Denies mouth swelling EXAM Physical Exam Narrative Exam Narrative: 53-year-old male no acute distress. Vital signs stable afebrile. Blood pressure elevated 173/106. He is a history of hypertension. H EENT exam pupils round react light. Extra motions are intact. Both eyes are injected. Both the upper and lower lids are mildly swollen. Extra motions are intact. No pain. Mild swelling. Mild proptosis. There is increased watering. Injection bilaterally. Mild discharge. No crusting. No facial swelling or trauma. No preauricular lymphadenopathy. Neck nontender no lymphadenopathy. Lungs clear to auscultation. Heart regular rhythm no murmur. Abdomen soft nontender. Moving all 4 extremities. He is awake and alert. Const Vital Signs: 09/08/24 10:41 Temperature 97.7 F L Temperature Source Oral Pulse Rate 71 Respiratory Rate 18 Blood Pressure 173/106 H Blood Pressure Mean 128 Pulse Ox 93 Oxygen Delivery Method Room Air Positive well nourished and well developed; Negative for cachectic, contractures or unkempt General Appearance ED: well developed and NAD; Negative for unkempt, cachectic or contractures Nutritional Appearance: Negative for cachectic HEENT atraumatic; Negative for trauma or tenderness Nose: nares normal; Negative for external nose normal Eyes Eyes Narrative: Bilateral eyes watering. Mild upper and lower lid swelling bilaterally. Mild discharge. Unremarkable pharynx moving all 4 extremities. Neck no lymphadenopathy, supple and no JVD General: Negative for tenderness Resp normal respiratory effort, no retractions, no use of accessory muscles, clear to auscultation bilaterally and percussion normal Cardio regular rate, regular rhythm, S1 normal heart sound, S2 normal heart sound and no murmurs GI non-tender, non-distended and no masses Back/Spine no CVA tenderness Extremity normal to inspection Neuro oriented x3, CN's II-XII intact bilaterally and moves all extremities Sensorium / Orientation: alert, oriented to person, oriented to place and oriented to time Motor Exam: strength 5/5 throughout Psych Appearance: Negative for unkempt Attitude: No agitated Mood & Affect: Negative for depressed, anxious or tearful Skin no wounds Lesions: no lesions Rashes: no rashes Trauma: Negative for abrasion MDM MDM MDM Narrative Medical decision making narrative: 53-year-old male with bilateral conjunctivitis. Slit-lamp examination visual acuity be obtained. Slit-lamp exam the patient's eye at 1215 tetracaine was instilled in each eye. This appears to be a viral conjunctivitis may be pinkeye. Versus other etiologies. There is no corneal abrasion or foreign body to either eye. No dye uptake. The lids are mildly swollen but there is no foreign body or trauma. Injected bilaterally. This does not look like a bacterial conjunctivitis. Discharge Plan Triage Chief Complaint: Eye Problem Other Complaint: Cellulitis ED Provider: Burton Maki Dx/Rx/DC Orders Clinical Impression: Acute viral conjunctivitis Instructions: ED Conjunctivitis, Viral Prescriptions: No Action amoxicillin-pot clavulanate 875-125 mg tablet 1 tab PO BID 7 Days Qty: 14 0RF oxycodone-acetaminophen [oxycodone-acetaminophen] 5-325 mg tablet 1 tab PO Q6H PRN PRN (Reason: Pain) 3 Days Qty: 12 0RF amoxicillin-pot clavulanate 875-125 mg tablet 1 tab PO BID Qty: 20 0RF benzonatate 100 mg capsule 200 mg PO TID PRN PRN (Reason: Cough) Qty: 20 0RF albuterol sulfate [Ventolin HFA] 90 mcg/actuation HFA aerosol inhaler 1 - 2 puff inhalation Q4H PRN PRN (Reason: Wheezing) Qty: 1 0RF guaifenesin [Mucinex] 600 mg tablet extended release 12hr 600 mg PO Q12H PRN (Reason: congestion) Qty: 60 0RF Primary Care Provider: Care Physician,No Primary Referrals: Margarita Izquierdo MD [Med Staff - Active Staff] - 3-5 Days if not improving Care Physician,No Primary [Primary Care Provider] - Activity Restrictions/Additional Instructions: This appears to be a virus of your eyes. This should progressively improve. Warm compresses to your eyes for Garrett in the morning and again later in the day. Apply the antibiotic ointment 2-3 times a day to each eye. This should progressively improve if not follow-up with the eye doctor that I referred you to Dr. Izquierdo. Print Language: Croatian Disposition Disposition: Home, Self Care
[2024-09-08] MEDS: Fluorescein 1 MG STRIP 1 STRIP EACH EYE (11:13)
[2024-09-08] MEDS: Neomycin/Bacitracin/Polymyxin Opth. Ointment 1 APPLIC EACH EYE (12:29)
== END 2024-09-08 12:42 | disposition home or self-care (01) ==
PROVIDERS: Emergency Provider Emergency Medicine; Visit Provider Emergency Medicine
DX: B30.9 Viral conjunctivitis, unspecified (principal); I10 Essential (primary) hypertension; F17.210 Nicotine dependence, cigarettes, uncomplicated
CPT/HCPCS: 99284

== ENCOUNTER 2024-10-27 17:35 | Emergency (ER) | payer SELFPAY ==
[2024-10-27 17:36] VITALS: BP 183/94; PULSE 78; RESP 18; TEMP 36.6; O2SAT 94; BMI 42.7
--- NOTE | 2024-10-27 17:49 | EDS_ITS ---
HPI <MIKEL Pantoja - Last Filed: 10/27/24 19:08> History of Present Illness Chief Complaint: Eye Problem Narrative Narrative: Patient presenting today with concerns for right eye conjunctivitis. He reports that this afternoon at work he began having increased yellow-colored drainage to the right eye. He had conjunctivitis about a month ago which presented similarly. He was given antibiotic ointment at that time which seemed to help. He denies any pain to his eye, decreased visual acuity, or foreign body to the eye. He does not wear contact lenses. PFSH <MIKEL Pantoja - Last Filed: 10/27/24 19:08> [facility] Medical History Pancreatitis No previous significant medical history Home Medications ?Medication ?Instructions ?Recorded ?Last Taken ?Type amoxicillin 875 mg-potassium 1 tab PO BID 7 days #14 tabs 05/01/23 Unknown Rx clavulanate 125 mg tablet oxycodone-acetaminophen 5 mg-325 1 tab PO Q6H PRN PRN Pain 3 days 05/02/23 Unknown Rx mg tablet #12 TABLETS amoxicillin 875 mg-potassium 1 tab PO BID #20 tabs 07/28/24 Unknown Rx clavulanate 125 mg tablet benzonatate 100 mg capsule 200 mg (2 x 100 mg) PO TID PRN PRN 08/13/24 Unknown Rx Cough #20 CAPSULES albuterol sulfate 90 mcg/actuation 1 - 2 puff inhalation Q4H PRN PRN 08/23/24 Unknown Rx aerosol inhaler (Ventolin HFA) Wheezing ##1 guaifenesin 600 mg tablet, 600 mg PO Q12H PRN congestion #60 08/23/24 Unknown Rx extended release 12 hr (Mucinex) tabs Allergy/AdvReac Type Severity Reaction Status Date / Time No Known Allergies Allergy Verified 10/27/24 17:35 Social History household members: significant other Smoking Status: Current every day smoker tobacco type: cigarettes substance use type: does not use ROS <MIKEL Pantoja - Last Filed: 10/27/24 19:08> ROS ED Constitutional Constitutional ED: Denies chills or fever(s) Eyes Eyes: Reports discharge from eye(s); Denies change in vision ENT ENT ED: Reports discharge from eye(s) Cardiovascular Cardiovascular: Denies chest pain Respiratory/Chest Respiratory/Chest: Denies cough or dyspnea Gastrointestinal Gastrointestinal: Denies abdominal pain, nausea or vomiting Musculoskeletal Musculoskeletal: Denies arthralgias or myalgias Integumentary Denies rash Neurologic Neurologic: Denies weakness EXAM <MIKEL Pantoja - Last Filed: 10/27/24 19:08> Physical Exam Const Vital Signs: 10/27/24 17:36 Temperature 97.8 F Temperature Source Temporal Pulse Rate 78 Respiratory Rate 18 Blood Pressure 183/94 H Blood Pressure Mean 123 Pulse Ox 94 Oxygen Delivery Method Room Air Positive well nourished, well developed and no apparent distress General Appearance ED: well developed HEENT Reports normocephalic and head/scalp atraumatic Mouth ED: Yes moist mucous membranes normal Eyes PERRL and EOMs intact bilaterally Eyes Narrative: No periorbital edema/erythema, slight right conjunctival injection. Minimal purulent discharge in the corner of the right eye. Neck full ROM and supple Chest Wall inspection of chest normal Resp normal respiratory effort and clear to auscultation bilaterally Cardio regular rate and regular rhythm GI soft to palpation, non-tender, non-distended and no masses Back/Spine normal ROM and normal to inspection Extremity normal to inspection and full ROM Neuro oriented x3, CN's II-XII intact bilaterally, moves all extremities, no focal motor deficits and no sensory deficits noted Sensorium / Orientation: awake and alert Psych mental status grossly normal and thought process normal Skin no rashes or lesions noted and no wounds MDM <MIKEL Pantoja - Last Filed: 10/27/24 19:08> [facility] Narrative Medical decision making narrative: Patient presenting today with concerns for pinkeye. He reports slight redness and discharge to the right eye that started today. Visual acuity is intact. He does not wear contacts. He had pinkeye a month ago that resolved after antibiotic ointment. Exam today is consistent with conjunctivitis. He has right-sided conjunctival injection and minimal purulent discharge in the corner of the right eye. He will be placed on erythromycin ointment and will be referred to ophthalmology. Return instructions discussed and patient discharged home in stable condition. Attending note: I have personally performed a face to face assessment of the patient and have reviewed the COLEMAN note. I personally made/approved the management plan and take responsibility for the patient management. I performed a substantive portion of the visit including all aspects of the following. My pope findings include: Increasing redness drainage right eye today. No visual changes. No contacts or glasses. History of similar a month ago for both eyes. Exam is erythema conjunctiva dry crusting noted. Visual acuity 20/30 OD, 20/30 OS. Patient provided erythromycin ointment to use twice a day. He is given follow-up with ophthalmology. All questions were answered. <Dr. Rio Norris, DO - Last Filed: 10/27/24 23:34> [facility] MDM Narrative Medical decision making narrative: Attending note: I have personally performed a face to face assessment of the patient and have reviewed the COLEMAN note. I personally made/approved the management plan and take responsibility for the patient management. I performed a substantive portion of the visit including all aspects of the following. My pope findings include: Increasing redness drainage right eye today. No visual changes. No contacts or glasses. History of similar a month ago for both eyes. Exam is erythema conjunctiva dry crusting noted. Visual acuity 20/30 OD, 20/30 OS. Patient provided erythromycin ointment to use twice a day. He is given follow-up with ophthalmology. All questions were answered. Discharge Plan Triage Chief Complaint: Eye Problem ED Midlevel Provider: Marni Brandon ED Provider: Rio Norris Dx/Rx/DC Orders Clinical Impression: Conjunctivitis of right eye, Redness of eye, right Instructions: ED Conjunctivitis, Nonspecific Prescriptions: No Action amoxicillin-pot clavulanate 875-125 mg tablet 1 tab PO BID 7 Days Qty: 14 0RF oxycodone-acetaminophen [oxycodone-acetaminophen] 5-325 mg tablet 1 tab PO Q6H PRN PRN (Reason: Pain) 3 Days Qty: 12 0RF amoxicillin-pot clavulanate 875-125 mg tablet 1 tab PO BID Qty: 20 0RF benzonatate 100 mg capsule 200 mg PO TID PRN PRN (Reason: Cough) Qty: 20 0RF albuterol sulfate [Ventolin HFA] 90 mcg/actuation HFA aerosol inhaler 1 - 2 puff inhalation Q4H PRN PRN (Reason: Wheezing) Qty: 1 0RF guaifenesin [Mucinex] 600 mg tablet extended release 12hr 600 mg PO Q12H PRN (Reason: congestion) Qty: 60 0RF Primary Care Provider: Care Physician,No Primary Referrals: Rafi Merino MD [Med Staff - Active Staff] - 1-2 Weeks Care Physician,No Primary [Primary Care Provider] - Activity Restrictions/Additional Instructions: Visual acuity 20/30 each eye. Use ointment twice a day for next 7 days. Print Language: Irish Disposition Disposition: Home, Self Care Discharge Date/Time: 10/27/24 18:27
[2024-10-27] MEDS: Erythromycin Base 1 OPTH.TUBE 1 APPLIC OPHTHALMIC (18:05)
[2024-10-27 18:26] VITALS: BP 155/74; PULSE 76; RESP 16; TEMP 36.6; O2SAT 94
== END 2024-10-27 18:27 | disposition home or self-care (01) ==
LOC: ED 18:21
PROVIDERS: Emergency Provider Emergency Medicine; Visit Provider Emergency Medicine
DX: H10.9 Unspecified conjunctivitis (principal); F17.210 Nicotine dependence, cigarettes, uncomplicated; H57.89 Other specified disorders of eye and adnexa
CPT/HCPCS: 99283

== ENCOUNTER 2024-11-25 20:41 | Emergency (ER) | payer SELFPAY ==
[2024-11-25 20:42] VITALS: BP 196/106; PULSE 96; RESP 15; TEMP 35.8; O2SAT 97; BMI 42.7
--- NOTE | 2024-11-25 20:56 | EX.ED.VIS.EY ---
HPI History of Present Illness Chief Complaint: Eye Problem [facility] Medical History Pancreatitis No previous significant medical history Home Medications ?Medication ?Instructions ?Recorded ?Last Taken ?Type amlodipine 10 mg tablet (Norvasc) 10 mg PO DAILY #30 tabs 11/25/24 Unknown Rx erythromycin 5 mg/gram (0.5 %) eye 1 applic RIGHT EYE BID 7 days #50 11/25/24 Unknown Rx ointment grams Allergy/AdvReac Type Severity Reaction Status Date / Time No Known Allergies Allergy Verified 11/25/24 20:42 Social History household members: significant other Smoking Status: Current every day smoker tobacco type: cigarettes substance use type: does not use EXAM Physical Exam Const Vital Signs: 11/25/24 20:42 Temperature 96.5 F L Temperature Source Oral Pulse Rate 96 Respiratory Rate 15 Blood Pressure 196/106 H Blood Pressure Mean 136 Pulse Ox 97 Oxygen Delivery Method Room Air [facility] MDM Narrative Medical decision making narrative: HISTORY OF PRESENT ILLNESS: 54-year-old male presents with swelling bilateral eyes. The patient is not wear contact lenses. Notes discharge from his right eye. Notes itching as well. No recent sick contacts, no recent exposures. REVIEW OF SYSTEMS: Pertinent positives: Right eye redness Pertinent negatives: Cough, congestion PHYSICAL EXAM: Nursing triage notes reviewed, Vital signs reviewed Constitutional: please see mdm HENT: MMM Eyes: Pupils equal round and reactive to light, Extraocular muscles intact, visual obrien intact, visual acuity 20/30 bilaterally, right sided conjunctival injection, yellow discharge noted in right eye Neck: No stridor, no JVD, full neck ROM Lungs: Clear to auscultation, No wheezing or rales. No increased work of breathing, no conversational dyspnea, no accessory muscle use, no nasal flaring. No respiratory distress noted Heart: Regular rate and rhythm, No murmurs, No rubs and No gallops, 2+ distal pulses (radial, femoral, posterior tibial) in all extremities Abdomen: Soft, there is no tenderness, rigidity, rebound or guarding, no obvious peritoneal signs, no palpable pulsatile abdominal masses, no auscultated abdominal bruit : No CVAT Extremities: No edema Neuro: No new focal neurological deficits, cranial nerves II through XII intact, 5/5 strength in all present extremities. Intact sensation to light touch in all present extremities, 2+ reflexes bilateral patella tendons. Skin: No rash or lesions noted MEDICAL DECISION MAKING: Chief Complaint: Eye swelling, itching, drainage External records reviewed: Reviewed prior ED visits Factors affecting care: none Social determinants of health: none History obtained from others: none Consults: none MDM Narrative: Patient was initially hypertensive otherwise afebrile and nontoxic-appearing. Exam with acute right-sided conjunctivitis. Visual acuity intact. There is no clinical evidence of dacryocystitis, hordeolum, or chalazion. The patient no pain with extraocular muscle movements, proptosis suggest orbital cellulitis. No evidence of periorbital cellulitis either. Gave erythromycin ointment. Patient was noted to be hypertensive so was started on Norvasc. Patient notes he gets insurance on 28 November I encouraged her to follow with PCP. PCP provided. Ophthalmology follow-up provided as well. The patient and/or family, caregivers express understanding. The patient and/or family, caregivers agrees with the plan. Shared decision making: I will have a discussion with the patient and or visitors regarding risk/benefits of further testing or admission. They will be made aware of of the risk/benefits inherent in this decision they will be given the opportunity to voice understanding. Total critical care time today provided was at least 0 minutes. This excludes separately billable procedures. Critical care time (if documented) is secondary to the patient having high probability of clinically significant/life threatening deterioration in the patient's condition which required my urgent intervention. Impression: 1. Acute bacterial conjunctivitis 2. Hypertension Dispo: Discharge home This note was generated with [employer] dictation software. It may contain incorrect words, spelling, and punctuation that were not noted in review of the chart prior to signing. Discharge Plan Triage Chief Complaint: Eye Problem ED Provider: Victor Manuel Frank Dx/Rx/DC Orders Instructions: ED Conjunctivitis, Bacterial, ED Hypertension New Begin Treatment Prescriptions: New amlodipine [Norvasc] 10 mg tablet 10 mg PO DAILY Qty: 30 3RF erythromycin 5 mg/gram (0.5 %) ointment 1 applic RIGHT EYE BID 7 Days Qty: 50 0RF Primary Care Provider: Care Physician,No Primary Referrals: Timo William MD [Med Staff - Active Staff] - Teddy Christie MD [Med Staff - Active Staff] - Activity Restrictions/Additional Instructions: Thank you for trusting us with your care today! Your exam is consistent with conjunctivitis. This is treated with topical antimicrobial ointment which is been prescribed. Your blood pressure was noted to be elevated. Please try taking Norvasc 10 mg daily. Please take Tylenol (2 pills, 650 mg), ibuprofen (2 pills, 400 mg) every 6 hours as needed for pain and fever control. For itching relief try Zyrtec or Claritin. Please return to the emergency department if your symptoms change or worsen. Please follow with your primary care physician for further outpatient evaluation and management. Print Language: Italian Disposition Disposition: Home, Self Care
[2024-11-25] MEDS: Erythromycin Base 1 OPTH.TUBE 1 APPLIC RIGHT EYE (21:29)
[2024-11-25] MEDS: amLODIPine 10 MG Tablet PO (21:29)
[2024-11-25 21:30] VITALS: BP 197/93; PULSE 80; RESP 18; TEMP 36.6; O2SAT 93
== END 2024-11-25 21:39 | disposition home or self-care (01) ==
LOC: ED 21:17
PROVIDERS: Emergency Provider Emergency Medicine; Visit Provider Emergency Medicine
DX: H10.30 Unspecified acute conjunctivitis, unspecified eye (principal); I10 Essential (primary) hypertension; B96.89 Other specified bacterial agents as the cause of diseases classified elsewhere; F17.210 Nicotine dependence, cigarettes, uncomplicated
CPT/HCPCS: 99282

== ENCOUNTER 2024-12-21 23:09 | Emergency (ER) | payer BC, SELFPAY ==
[2024-12-21 23:09] VITALS: BP 139/86; PULSE 91; RESP 18; TEMP 36.6; O2SAT 95; BMI 42.0
[2024-12-21 23:13] VITALS: BP 139/86; PULSE 97; RESP 19; TEMP 36.6; O2SAT 97
[2024-12-21] MEDS: Ketorolac 30 MG/ML Syringe IV (23:40)
[2024-12-21] MEDS: 0.9% Normal Saline (1000mL) 1,000 ML 999 ML IV (23:41)
--- NOTE | 2024-12-21 23:59 | EX.ED.DYSGE1 ---
HPI History of Present Illness Chief Complaint: Sore Throat Informant: patient Narrative Narrative: Patient is a 54-year-old male with past medical history of hypertension [id number] diabetes and pancreatitis. He states in the last 24 hours he has noticed a sore throat. He states that there has been no change to his voice and he denies any difficulty swallowing but simply states it is painful to do so. He reports has been taking [id number]-vnarokt Tylenol and Motrin without any symptom improvement. He denies any fevers. He states he has noticed some swelling around his chin in the last 12 hours or so. He denies difficulty breathing. He denies any known sick contacts. He does report mild congestion with this. However as his symptoms are not improving with [id number]-uyfzhhu medication and he is noticed increased swelling he had concern for infection and comes in for evaluation [facility] Medical History Pancreatitis No previous significant medical history Home Medications ?Medication ?Instructions ?Recorded ?Last Taken ?Type amlodipine 10 mg tablet (Norvasc) 10 mg PO DAILY #30 tabs 11/25/24 Unknown Rx erythromycin 5 mg/gram (0.5 %) eye 1 applic RIGHT EYE BID 7 days #50 11/25/24 Unknown Rx ointment grams losartan 100 1 tab PO DAILY 12/21/24 Unknown History mg-hydrochlorothiazide 25 mg tablet amoxicillin 875 mg-potassium 1 tab PO BID 7 days #14 tabs 12/22/24 Unknown Rx clavulanate 125 mg tablet Allergy/AdvReac Type Severity Reaction Status Date / Time No Known Allergies Allergy Verified 12/21/24 23:09 Social History household members: significant other Smoking Status: Former smoker substance use type: does not use ROS ROS ED Constitutional Constitutional ED: Denies chills or fever(s) Eyes Eyes: Denies change in vision ENT ENT ED: Reports rhinorrhea and sore throat Cardiovascular Cardiovascular: Denies chest pain Respiratory/Chest Respiratory/Chest: Denies cough or dyspnea Gastrointestinal Gastrointestinal: Denies abdominal pain, diarrhea, nausea or vomiting Genitourinary Genitourinary ED: Denies dysuria Musculoskeletal Musculoskeletal: Reports neck pain Integumentary Denies rash Neurologic Neurologic: Denies headache(s) Hematologic/Lymphatic Hematologic/Lymphatic: Denies easy bleeding or easy bruising Allergic/Immunologic Allergic/Immunologic ED: Denies mouth swelling or tongue swelling EXAM Physical Exam Const Vital Signs: 12/21/24 23:09 12/21/24 23:13 12/22/24 00:37 Temperature 98 F 98 F 98 F Temperature Source Oral Oral Oral Pulse Rate 91 97 97 Respiratory Rate 18 19 H 19 H Blood Pressure 139/86 H 139/86 H 136/74 H Blood Pressure Mean 103 103 94 Pulse Ox 95 97 92 Oxygen Delivery Method Room Air Room Air Room Air Oxygen Flow Rate (L/min) 12/22/24 01:00 12/22/24 01:01 12/22/24 01:06 Temperature 98.5 F Temperature Source Oral Pulse Rate 77 Respiratory Rate 18 Blood Pressure 116/67 Blood Pressure Mean 83 Pulse Ox 97 86 97 Oxygen Delivery Method Nasal Cannula Room Air Nasal Cannula Oxygen Flow Rate (L/min) 2 2 Positive well nourished, well developed and obese General Appearance ED: well developed; Negative for pallor Nutritional Appearance: obese HEENT Reports moist mucous membranes HEENT Narrative: Dried purulent discharge from bilateral naris There is mild erythema/cobblestoning the posterior pharynx consistent with sinus drainage. Trace to +1 times hypertrophy bilaterally with mild inflammation and swelling of the uvula. No hard palate petechiae. No trismus. No change in voice. No difficulty with secretions. No exudates noted Patient does have soft tissue swelling in the submental space without overlying erythema or warmth. No swelling is noted in the floor the mouth on internal exam. Eyes PERRL and EOMs intact bilaterally General Eye ED: Negative for scleral icterus Neck supple Neck Narrative: Soft tissue changes along the submental space as documented above Resp normal respiratory effort and clear to auscultation bilaterally Cardio regular rate and regular rhythm GI normal to inspection, nondistended, normoactive bowel sounds, non-tender, non-distended and no masses Auscultation: normoactive bowel sounds Palpation: soft Extremity normal to inspection Neuro oriented x3, CN's II-XII intact bilaterally and no sensory deficits noted Sensorium / Orientation: alert Motor Exam: strength 5/5 throughout Psych mental status grossly normal Skin no rashes or lesions noted General Skin Exam: Negative for jaundice or pallor MDM MDM MDM Narrative Medical decision making narrative: Patient arrived to the ER hypertensive but otherwise with stable vitals. He reported roughly 1 day of sore throat but also had congestion and drainage. There is concern this is bacterial pharyngitis/strep throat or could be sore secondary to viral infection such as COVID influenza or RSV. With the swelling underneath his chin there is concern for Wan's angina or potentially atypical epiglottitis or peritonsillar abscess. Secondary to his I did like to perform basic laboratory studies with a CT scan of the soft tissue neck. Labs revealed no clinically significant findings and CT of the neck revealed no signs of epiglottitis drainable abscess or airway compromise. Therefore at this time this is most likely inflammatory secondary to his viral illness but as he is not having airway compromise or respiratory distress or signs of sepsis there is no need for further intervention and he is otherwise safe for discharge History & Record Review Discussion w/independent historian: Patient Lab Data Attestation: I reviewed the patient's lab results. Labs: Laboratory Results - last 24 hr 12/21/24 23:28 WBC 11.7 H RBC 5.27 Hgb 16.2 Hct 48.9 MCV 92.8 MCH 30.7 MCHC 33.1 RDW Std Deviation 45.2 H RDW Coeff of Jamaal 13.2 Plt Count 216 MPV 11.0 Immature Gran % (Auto) 0.700 Neut % (Auto) 71.7 H Lymph % (Auto) 16.5 L [place] % (Auto) 7.8 Eos % (Auto) 3.0 Baso % (Auto) 0.3 Absolute Neuts (auto) 8.4 H Absolute Lymphs (auto) 1.92 Nucleated RBC % 0 Sodium 139 Potassium 4.0 Chloride 102 Carbon Dioxide 32.0 Anion Gap 5 BUN 16 Creatinine 0.86 Estim Creat Clear Calc 146.10 Est GFR (MDRD) Af Amer 119 Est GFR (MDRD) Non-Af 99 BUN/Creatinine Ratio 18.5 Glucose 128 H Lactic Acid 1.4 Calcium 9.2 Radiography Diagnostic Testing: Clinical Impression(s) from Imaging Studies Soft Tissue Neck CT 12/22/24 00:00 IMPRESSION: No CT evidence to suggest a soft tissue abscess or other infection. Electronically Signed: Yuli Odom MD at 1:13 EST Reading Location ID and State: [facility] / [place] , Service support , Discharge Plan Triage Chief Complaint: Sore Throat ED Provider: Norbert Maharaj Dx/Rx/DC Orders Clinical Impression: Pharyngitis, Lymphadenopathy, Non-insulin dependent diabetes mellitus, Hypertension Instructions: Lymphadenopathy, ED Pharyngitis, Viral Prescriptions: New amoxicillin-pot clavulanate 875-125 mg tablet 1 tab PO BID 7 Days Qty: 14 0RF No Action amlodipine [Norvasc] 10 mg tablet 10 mg PO DAILY Qty: 30 3RF erythromycin 5 mg/gram (0.5 %) ointment 1 applic RIGHT EYE BID 7 Days Qty: 50 0RF losartan-hydrochlorothiazide 100-25 mg tablet 1 tab PO DAILY Stand Alone Forms: ED Work / School Excuse Primary Care Provider: Alexander Triana Referrals: Alexander Triana, COMPETENCY EVALUATED NURSE AIDE-C [Primary Care Provider] - Activity Restrictions/Additional Instructions: Your CT scan showed no localized abscess or airway compromise. Take antibiotic as directed to prevent worsening infection and return to the ER should you have any further concerns Print Language: Estonian Disposition Disposition: Home, Self Care
--- NOTE | 2024-12-22 | CT_ITS ---
STUDY: CT SOFT TISSUE NECK WITH CONTRAST REASON FOR EXAM: Male, 54 years old patient with questionable Wan''s angina. RADIATION DOSAGE (If Supplied By Facility): CTDIvol = ( 21.80 ) mGy, DLP = ( 697.26 ) mGycm TECHNIQUE: The patient was scanned in a multi-detector CT scanner. High resolution transaxial imaging was performed following intravenous administration of 75 mL of IV Isovue-370. Sagittal and coronal images were reconstructed. Individualized dose optimization techniques were used for this CT. COMPARISON: CT of the neck dated February 06, 2015. FINDINGS: Normal bilateral parotid glands. Normal bilateral atomic process engineer spaces. Normal bilateral parapharyngeal spaces. Normal bilateral carotid spaces. Normal bilateral sublingual and submandibular glands and spaces. Normal visualized nasopharynx. Normal retropharyngeal space. Normal perivertebral space. Normal visualized bilateral faucial tonsils. The visualized tongue, tongue base and oropharynx are normal. The visualized cervical lymph nodes (levels I-) are within normal size limits, and maintain normal morphology. There is no demonstrated solid or cystic mass lesion. There is no abnormal contrast enhancement. Normal epiglottis, bilateral vallecula and hypopharynx. The pre-epiglottic and paraglottic adipose spaces are normal. Normal visualized bilateral piriform sinuses, aryepiglottic folds, vocal cords, and arytenoid-cricoid articulations. Normal subglottic trachea. Normal bilateral lobes of the thyroid gland. Normal visualized pulmonary apices. There is a small left maxillary sinus mucous retention cyst. Normal visualized cervical spine. CT/Soft Tissue Neck WITH Contrast IMPRESSION: No CT evidence to suggest a soft tissue abscess or other infection. Electronically Signed: Yuli Odom MD at 1:13 [facility] ,
[2024-12-22 00:01] LABS: Anion Gap 5 (5-15); BUN 16 mg/dL (7-18); BUN/Creat Ratio 18.5 RATIO (10-20); Calcium,Total 9.2 mg/dL (8.5-10.1); Chloride 102 mmol/L (98-107); Creatinine, Serum 0.86 mg/dL (0.70-1.30); EST Glomerular Filtration Rate 99 mL/min (>60); Est Glom Filt Rate - Afr Amer 119 mL/min (>60); Glucose 128 mg/dL (74-106); Sodium Level 139 mmol/L (136-145)
[2024-12-22] MEDS: Piperacil/Tazobactam 3.375 GM in 0.9% Normal Saline (50mL MB+) 50 ML IV (00:05)
[2024-12-22 00:15] LABS: Lactic Acid 1.4 mmol/L (0.4-1.9)
[2024-12-22 00:17] LABS: Absolute Lymphocyte Count 1.92 X10^3/uL (0.83-4.51); Absolute Neutrophil Count 8.4 X10^3/uL (2.0-7.7); Basophil# 0.04 X10^3/uL; Basophil% 0.3 % (0-1); Eosinophil# 0.35 X10^3/uL; Hematocrit 48.9 % (40-54); Hemoglobin 16.2 g/dL (13.0-16.5); Lymphocyte # 1.92 X10^3/ul (0.83-4.51); Lymphocyte % 16.5 % (19-41); Mean Corp Hgb Conc 33.1 g/dL (32-36); Mean Corpuscular Hgb 30.7 pg (27.0-32.0); Mean Corpuscular Volume 92.8 fL (80-94); Monocyte# 0.91 X10^3/uL; Monocyte% 7.8 % (0-10); NRBC Flagged by Analyzer 0 % (0-5); Neutrophil # 8.37 X10^3/uL (2.7-7.7); Neutrophil % 71.7 % (47-70); Platelet Count 216 K/mm3 (150-450); RBC Distribution Width CV 13.2 % (11.6-14.6); RBC Distribution Width SD 45.2 fl (35.1-43.9); Red Blood Count 5.27 M/mm3 (4.6-6.2); White Blood Count 11.7 K/mm3 (4.4-11.0)
[2024-12-22 00:37] VITALS: BP 136/74; PULSE 97; RESP 19; TEMP 36.6; O2SAT 92
[2024-12-22 01:00] VITALS: BP 116/67; PULSE 77; RESP 18; TEMP 36.9; O2SAT 97
[2024-12-22 01:01] VITALS: O2SAT 86
[2024-12-22 01:06] VITALS: O2SAT 97
[2024-12-22 01:36] VITALS: BP 119/68; PULSE 83; RESP 18; TEMP 36.9; O2SAT 94
== END 2024-12-22 01:37 | disposition home or self-care (01) ==
PROVIDERS: Emergency Provider Emergency Medicine; PCP Nurse Practitioner Family; Visit Provider Emergency Medicine
DX: J02.9 Acute pharyngitis, unspecified (principal); E11.9 Type 2 diabetes mellitus without complications; Z87.891 Personal history of nicotine dependence; I10 Essential (primary) hypertension; R59.9 Enlarged lymph nodes, unspecified; E66.9 Obesity, unspecified
CPT/HCPCS: 70491; 80048; 83605; 85025; 87631; 87651; 96361; 96374; 99283; Q9967; A4216

== ENCOUNTER 2025-02-04 17:02 | Emergency (ER) | payer BC, SELFPAY ==
[2025-02-04 17:05] VITALS: BP 150/91; PULSE 72; RESP 18; TEMP 36.4; O2SAT 96; BMI 41.7
--- NOTE | 2025-02-04 18:10 | EX.ED.DYSGE1 ---
HPI <MIKEL Richards - Last Filed: 02/04/25 20:03> History of Present Illness Chief Complaint: General Illness Narrative Narrative: 54-year-old male with past medical history of HTN, DM2, vertigo states he feels off over the last 3 days. He feels fatigued and like he has difficulty thinking. He is had a headache, sore throat and cough. Today he was lying in bed and when rolling over he had 10 seconds of room spinning and nausea. This occurred about 3 times. It felt similar to vertigo he had in the past. He has no chest pain or shortness of breath. No vomiting, abdominal pain or diarrhea. PFSH <MIKEL Richards - Last Filed: 02/04/25 20:03> [facility] Medical History Pancreatitis No previous significant medical history Home Medications ?Medication ?Instructions ?Recorded ?Last Taken ?Type amlodipine 10 mg tablet (Norvasc) 10 mg PO DAILY #30 tabs 11/25/24 Unknown Rx erythromycin 5 mg/gram (0.5 %) eye 1 applic RIGHT EYE BID 7 days #50 11/25/24 Unknown Rx ointment grams losartan 100 1 tab PO DAILY 12/21/24 Unknown History mg-hydrochlorothiazide 25 mg tablet amoxicillin 875 mg-potassium 1 tab PO BID 7 days #14 tabs 12/22/24 Unknown Rx clavulanate 125 mg tablet meclizine 25 mg tablet 25 mg PO 4X/DAY PRN PRN Dizziness 02/04/25 Unknown Rx #20 tabs metformin 500 mg tablet 500 mg PO BID 02/04/25 Unknown History Allergy/AdvReac Type Severity Reaction Status Date / Time No Known Allergies Allergy Verified 02/04/25 17:04 Social History household members: significant other Smoking Status: Former smoker substance use type: does not use ROS <MIKEL Richards - Last Filed: 02/04/25 20:03> ROS ED ROS Narrative Constitutional: Positive for malaise. Negative for fever, chills. Eyes: Negative for visual change. ENT: Positive for sore throat. CVS: Negative for palpitations, chest pain, syncope. Respiratory: Positive for cough. Negative for shortness of breath. GI: Positive for nausea. No vomiting, abdominal pain, diarrhea. EXAM <MIKEL Richards - Last Filed: 02/04/25 20:03> Physical Exam Narrative Exam Narrative: CONST: Patient sitting in no acute distress. EYES: Normal inspection. PERRL, EOMI, 2 beats rightward nystagmus. ENT: Normal posterior oropharynx, moist mucous membranes. NECK: Normal inspection. RESP: No respiratory distress, CTAB. CVS: Regular rate and rhythm, no murmur, no gallop. ABD: Soft and nontender, no guarding or rebound, nondistended. SKIN: Color normal, no rash, warm, dry, intact. EXTREMITIES: Normal appearance, no pedal edema. NEURO: Alert and answering questions appropriately. 5/5 upper and lower extremity strength, normal fonidi-va-bewz bilaterally, no truncal ataxia. PSYCH: Normal affect. Const Vital Signs: 02/04/25 17:05 02/04/25 19:03 02/04/25 20:11 Temperature 97.6 F L 98 F Temperature Source Oral Pulse Rate 72 81 82 Respiratory Rate 18 17 17 Blood Pressure 150/91 H 139/88 H 139/79 H Blood Pressure Mean 110 105 99 Pulse Ox 96 98 97 Oxygen Delivery Method Room Air Room Air <Dr. Rio Norris DO - Last Filed: 02/04/25 23:51> Physical Exam Const Vital Signs: 02/04/25 17:05 02/04/25 19:03 02/04/25 20:11 Temperature 97.6 F L 98 F Temperature Source Oral Pulse Rate 72 81 82 Respiratory Rate 18 17 17 Blood Pressure 150/91 H 139/88 H 139/79 H Blood Pressure Mean 110 105 99 Pulse Ox 96 98 97 Oxygen Delivery Method Room Air Room Air [facility] <MIKEL Richards - Last Filed: 02/04/25 20:03> [facility] Narrative Medical decision making narrative: 54-year-old male reports episodes of BPPV when rolling over in bed today. He has history of similar. He states he also just feels tired and off but has no specific symptoms. He is awake and alert. Stable vital signs. GCS 15. He has a completely normal neurological exam with NIH of 0. He has slight rightward horizontal nystagmus. Since he is diabetic and does not know his blood sugars any BGT was checked and is unremarkable at 130. He was treated with meclizine and Zofran with improvement. His viral swab was negative for COVID/flu/RSV. I prescribed meclizine for home and discussed return precautions. He was discharged in stable condition. Lab Data Attestation: I reviewed the patient's lab results. Labs: Laboratory Results - last 24 hr 02/04/25 18:09 POC Glucose 130 H <Dr. Rio Norris, DO - Last Filed: 02/04/25 23:51> MDM MDM Narrative Medical decision making narrative: 54-year-old male reports episodes of BPPV when rolling over in bed today. He has history of similar. He states he also just feels tired and off but has no specific symptoms. He is awake and alert. Stable vital signs. GCS 15. He has a completely normal neurological exam with NIH of 0. He has slight rightward horizontal nystagmus. Since he is diabetic and does not know his blood sugars any BGT was checked and is unremarkable at 130. He was treated with meclizine and Zofran with improvement. His viral swab was negative for COVID/flu/RSV. I prescribed meclizine for home and discussed return precautions. He was discharged in stable condition. Attending note: I have personally performed a face to face assessment of the patient and have reviewed the COLEMAN note. I personally made/approved the management plan and take responsibility for the patient management. I performed a substantive portion of the visit including all aspects of the following. My pope findings include: History of peripheral vertigo waking with vertigo symptoms. Able to ambulate. Recent slight headache cough sore throat. Exam no focal deficits no meningismus lungs are clear throat with no erythema. No nystagmus exam. He was chewing meclizine and Zofran. Viral swabs negative. Able to ambulate. Prescription meclizine sent to his pharmacy. Outpatient follow-up. Lab Data Labs: Laboratory Results - last 24 hr 02/04/25 18:09 POC Glucose 130 H Discharge Plan Triage Chief Complaint: General Illness ED Midlevel Provider: Katt Bhatt ED Provider: Rio Norris Dx/Rx/DC Orders Clinical Impression: Benign paroxysmal positional vertigo Instructions: ED BPV Vertigo Prescriptions: New meclizine 25 mg tablet 25 mg PO 4X/DAY PRN PRN (Reason: Dizziness) Qty: 20 0RF No Action amlodipine [Norvasc] 10 mg tablet 10 mg PO DAILY Qty: 30 3RF erythromycin 5 mg/gram (0.5 %) ointment 1 applic RIGHT EYE BID 7 Days Qty: 50 0RF losartan-hydrochlorothiazide 100-25 mg tablet 1 tab PO DAILY amoxicillin-pot clavulanate 875-125 mg tablet 1 tab PO BID 7 Days Qty: 14 0RF metformin 500 mg tablet 500 mg PO BID Stand Alone Forms: ED Work / School Excuse Primary Care Provider: Alexander Triana Referrals: Alexander Triana, RESEARCH ASSISTANT MEMBER-C [Primary Care Provider] - Activity Restrictions/Additional Instructions: I prescribed meclizine which you take as needed for vertigo. Follow-up with your primary care doctor. Print Language: Spanish Disposition Disposition: Home, Self Care Discharge Date/Time: 02/04/25 20:12
[2025-02-04] MEDS: Meclizine HCl 25 MG Tablet PO (18:21)
[2025-02-04] MEDS: Ondansetron ODT 4 MG Tablet PO (18:21)
[2025-02-04 18:34] LABS: Bedside Glucose 130 mg/dL (74-106)
[2025-02-04 19:03] VITALS: BP 139/88; PULSE 81; RESP 17; O2SAT 98
[2025-02-04 20:11] VITALS: BP 139/79; PULSE 82; RESP 17; TEMP 36.6; O2SAT 97
== END 2025-02-04 20:12 | disposition home or self-care (01) ==
PROVIDERS: Emergency Provider Emergency Medicine; PCP Nurse Practitioner Family; Visit Provider Emergency Medicine
DX: H81.10 Benign paroxysmal vertigo, unspecified ear (principal); E11.9 Type 2 diabetes mellitus without complications; J02.9 Acute pharyngitis, unspecified; Z87.891 Personal history of nicotine dependence; R51.9 Headache, unspecified; I10 Essential (primary) hypertension
CPT/HCPCS: 82962; 87631; 99283; A4216

== ENCOUNTER 2025-02-18 15:29 | Emergency (ER) | payer BC, SELFPAY ==
[2025-02-18 15:29] VITALS: BP 197/107; PULSE 98; RESP 18; TEMP 36.5; O2SAT 95; BMI 43.0
[2025-02-18 15:32] VITALS: BP 156/99
--- NOTE | 2025-02-18 16:04 | EKG12_ITS ---
Test Reason : Blood Pressure : */* mmHG Vent. Rate : 81 BPM Atrial Rate : 81 BPM P-R Int : 154 ms QRS Dur : 90 ms QT Int : 380 ms P-R-T Axes : 27 16 29 degrees QTcB Int : 441 ms Normal sinus rhythm Normal ECG Confirmed by MASHA PORTER, EVERT ([id number]), technical writer and editor EDGARDO ODOM ([id number]) on 02/20/2025 8:17:32 AM Referred By: JAYDEN Confirmed By: EVERT FLANAGAN MD
[2025-02-18 16:23] LABS: Absolute Lymphocyte Count 2.03 X10^3/uL (0.83-4.51); Absolute Neutrophil Count 5.1 X10^3/uL (2.0-7.7); Basophil# 0.04 X10^3/uL; Basophil% 0.5 % (0-1); Eosinophil# 0.37 X10^3/uL; Eosinophils% 4.4 % (0-5); Hematocrit 48.2 % (40-54); Hemoglobin 16.3 g/dL (13.0-16.5); Lymphocyte # 2.03 X10^3/ul (0.83-4.51); Lymphocyte % 24.3 % (19-41); Mean Corp Hgb Conc 33.8 g/dL (32-36); Mean Corpuscular Hgb 30.4 pg (27.0-32.0); Mean Corpuscular Volume 89.8 fL (80-94); Mean Platelet Vol. 10.9 fl (6.2-12.0); Monocyte# 0.73 X10^3/uL; Monocyte% 8.7 % (0-10); NRBC Flagged by Analyzer 0 % (0-5); Neutrophil # 5.14 X10^3/uL (2.7-7.7); Neutrophil % 61.6 % (47-70); Platelet Count 183 K/mm3 (150-450); RBC Distribution Width SD 45.6 fl (35.1-43.9); Red Blood Count 5.37 M/mm3 (4.6-6.2); White Blood Count 8.4 K/mm3 (4.4-11.0)
[2025-02-18 17:05] LABS: ALB/GLOB Ratio 1.5 RATIO (0.9-2.4); AST(SGOT) 25 U/L (<=37); Alanine Aminotransfer ALT/SGPT 27 U/L (<=46); Albumin, Serum 4.3 g/dL (3.5-5.0); Alkaline Phosphatase 78 U/L (40-129); Anion Gap 12 (5-15); BUN 18 mg/dL (4-19); BUN/Creat Ratio 23.5 RATIO (10-20); Calcium,Total 9.8 mg/dL (7.6-11.0); Carbon Dioxide 26.1 mmol/L (21.0-32.0); Chloride 100 mmol/L (98-108); Creatinine, Serum 0.75 mg/dL (0.70-1.20); EST Glomerular Filtration Rate 108 (>60); Estimated Creatinine Clearance 169.78 ml/min (50-250); Globulin 2.9 g/dL (2.2-4.2); Glucose 164 mg/dL (70-99); Protein, Total 7.1 g/dL (5.9-8.4); Sodium Level 138 mmol/L (133-145); Total Bilirubin 0.27 mg/dL (0.00-1.30)
[2025-02-18 17:11] LABS: Bacteria 0 SEEN /hpf (None Seen)
[2025-02-18 17:29] VITALS: BP 130/91; PULSE 70; RESP 20
[2025-02-18 17:56] LABS: Color, Urine Yellow (Yellow); Glucose, Dipstick Normal (Normal); Ketone-Dipstick Negative (Negative); Leukocyte Esterase-Dipstick 25 /ul (Negative); Nitrite-Dipstick Negative (Negative); Occult Blood-Urine Negative /ul (Negative); Protein-Dipstick 30 mg/dl (Negative); Specific Gravity, Urine 1.025 (1.002-1.030); Urine Bilirubin Dipstick Negative (Negative); Urine Clarity Clear (Clear); Urine Urobilinogen Normal (Normal)
--- NOTE | 2025-02-18 18:06 | EX.ED.DYSGE1 ---
HPI History of Present Illness Chief Complaint: Edema Detail of Chief Complaint: Patient presents with edema of his lower extremities for the past couple of Informant: patient Onset/Context/Timing Onset: Days Context: Sudden Onset Timing: Continuous Quality: Swelling legs it feet. Location: Lower extremities bilaterally Current Severity: Moderate Maximum Severity: Moderate Worsened by: Unknown Relieved by: Nothing Associated Symptoms Associated Symptoms: None Narrative Narrative: Patient is a 54-year-old male with type 2 diabetes and hypertension who is on amlodipine and losartan hydrochlorothiazide for his hypertension and metformin for his diabetes who presents with swelling over the past couple days of his lower extremities. He states he stands and walks a lot. He denies orthopnea or PND. He denies cardiac disease or anginal or anginal equivalent symptoms. He denies known kidney disease. He denies thyroid disease. He denies fatigue, cold intolerance, abdominal pain or constipation. He denies any change in the color, consistency or caliber of his stool. He has no known history of cancer. He denies fever, chills night sweats. He does endorse a 5 pound weight gain over the past 3 months. Prior similar symptoms: No Recent Illness/Hospitalization: No [facility] Medical History Pancreatitis No previous significant medical history Home Medications ?Medication ?Instructions ?Recorded ?Last Taken ?Type amlodipine 10 mg tablet (Norvasc) 10 mg PO DAILY #30 tabs 11/25/24 Unknown Rx erythromycin 5 mg/gram (0.5 %) eye 1 applic RIGHT EYE BID 7 days #50 11/25/24 Unknown Rx ointment grams losartan 100 1 tab PO DAILY 12/21/24 Unknown History mg-hydrochlorothiazide 25 mg tablet amoxicillin 875 mg-potassium 1 tab PO BID 7 days #14 tabs 12/22/24 Unknown Rx clavulanate 125 mg tablet meclizine 25 mg tablet 25 mg PO 4X/DAY PRN PRN Dizziness 02/04/25 Unknown Rx #20 tabs metformin 500 mg tablet 500 mg PO BID 02/04/25 Unknown History Allergy/AdvReac Type Severity Reaction Status Date / Time No Known Allergies Allergy Verified 02/18/25 15:29 Social History household members: significant other Smoking Status: Former smoker substance use type: does not use ROS ROS ED Constitutional Constitutional ED: Denies chills, fever(s), subjective, sweats or weight loss Eyes Eyes: Denies blurry vision or change in vision ENT ENT ED: Denies rhinorrhea Cardiovascular Cardiovascular: Denies chest pain, orthopnea, palpitations or paroxysmal nocturnal dyspnea Respiratory/Chest Respiratory/Chest: Denies cough, dyspnea, dyspnea on exertion, orthopnea or paroxysmal nocturnal dyspnea Gastrointestinal Gastrointestinal: Denies abdominal pain, constipation, diarrhea, nausea or vomiting Musculoskeletal Musculoskeletal: Denies back pain Integumentary Denies rash Neurologic Neurologic: Denies weakness Psychiatric Psychiatric: Denies anxiety Endocrine Endocrinology: Denies cold intolerance Hematologic/Lymphatic Hematologic/Lymphatic: Reports systems reviewed and no addt'l complaints, except as documented EXAM Physical Exam Const Vital Signs: 02/18/25 15:29 02/18/25 15:32 02/18/25 15:59 Temperature 97.7 F L Temperature Source Oral Pulse Rate 98 Respiratory Rate 18 Respiratory Effort Normal Respiratory Pattern Normal Blood Pressure 197/107 H 156/99 H Blood Pressure Mean 137 118 Pulse Ox 95 Oxygen Delivery Method Room Air 02/18/25 17:29 Temperature Temperature Source Pulse Rate 70 Respiratory Rate 20 H Respiratory Effort Respiratory Pattern Blood Pressure 130/91 H Blood Pressure Mean 104 Pulse Ox Oxygen Delivery Method Room Air Positive well nourished and well developed Constitutional Narrative: BMI is 43.1. Initial blood pressure was elevated. Repeat is markedly improved with no intervention. General Appearance ED: well developed; Negative for pallor HEENT Reports moist mucous membranes HEENT Narrative: Head is atraumatic normocephalic. Ears normal. Nares patent. Eyes PERRL and EOMs intact bilaterally General Eye ED: Negative for pale conjunctiva or scleral icterus Neck no lymphadenopathy, supple and no JVD Chest Wall inspection of chest normal Resp normal respiratory effort and clear to auscultation bilaterally Cardio regular rate, regular rhythm, S1 normal heart sound, S2 normal heart sound and no murmurs GI normal to inspection, nondistended, normoactive bowel sounds, non-tender, non-distended and no masses; Negative for hepatosplenomegaly Palpation: soft Extremity Extremity Narrative: Patient has pitting edema of his legs and feet. Otherwise there is no abnormality noted. There is no venous stasis dermatitis noted. There is no skin lesions noted. General Extremety ED: Yes edema General Extremity: edema Neuro oriented x3 and CN's II-XII intact bilaterally Sensorium / Orientation: alert Psych mental status grossly normal Skin no rashes or lesions noted, no wounds and skin turgor normal General Skin Exam: Negative for jaundice or pallor MDM MDM MDM Narrative Medical decision making narrative: Patient with bilateral lymphedema he also has periorbital lymphedema. Differential diagnosis is renal disease, cardiac disease, thyroid disease we will obtain CBC, electrolyte panel, albumin and total protein as well as UA looking for proteinuria. He Lab Data Attestation: I reviewed the patient's lab results. Lab results narrative: CBC is essentially normal. Comprehensive metabolic panel is remarked for glucose of 164. He is diabetic. CO2 anion gap are normal. BUN to creatinine ratio is elevated. Urinalysis reveals increased specific gravity of 1.025 and minimal protein. This would not be the cause of his lymphedema. Labs: Laboratory Results - last 24 hr 02/18/25 02/18/25 16:11 17:05 WBC 8.4 RBC 5.37 Hgb 16.3 Hct 48.2 MCV 89.8 MCH 30.4 MCHC 33.8 RDW Std Deviation 45.6 H RDW Coeff of Jamaal 14.0 Plt Count 183 MPV 10.9 Immature Gran % (Auto) 0.500 Neut % (Auto) 61.6 Lymph % (Auto) 24.3 [place] % (Auto) 8.7 Eos % (Auto) 4.4 Baso % (Auto) 0.5 Absolute Neuts (auto) 5.1 Absolute Lymphs (auto) 2.03 Nucleated RBC % 0 Sodium 138 Potassium 4.0 Chloride 100 Carbon Dioxide 26.1 Anion Gap 12 BUN 18 Creatinine 0.75 Estim Creat Clear Calc 169.78 Est GFR (MDRD) Non-Af 108 BUN/Creatinine Ratio 23.5 H Glucose 164 H Calcium 9.8 Total Bilirubin 0.27 AST 25 ALT 27 Alkaline Phosphatase 78 Total Protein 7.1 Albumin 4.3 Globulin 2.9 Albumin/Globulin Ratio 1.5 TSH 3.180 Urine Color Yellow Urine Clarity Clear Urine pH 5.0 Ur Specific [place] 1.025 Urine Protein 30 H Urine Glucose (UA) Normal Urine Ketones Negative Urine Occult Blood Negative Urine Nitrite Negative Urine Bilirubin Negative Urine Urobilinogen Normal Ur Leukocyte Esterase 25 H Treatment and Re-Evaluation :: Patient was informed of his results. He was asked to follow-up with his doctor for further outpatient testing since there is no emergent condition at this time. Discharge Plan Triage Chief Complaint: Edema ED Provider: Danish Li Dx/Rx/DC Orders Clinical Impression: Lymphedema of both lower extremities, Type 2 diabetes mellitus with hyperglycemia, Protein in urine Instructions: ED Peripheral Edema, Bilateral Prescriptions: No Action amlodipine [Norvasc] 10 mg tablet 10 mg PO DAILY Qty: 30 3RF erythromycin 5 mg/gram (0.5 %) ointment 1 applic RIGHT EYE BID 7 Days Qty: 50 0RF losartan-hydrochlorothiazide 100-25 mg tablet 1 tab PO DAILY amoxicillin-pot clavulanate 875-125 mg tablet 1 tab PO BID 7 Days Qty: 14 0RF metformin 500 mg tablet 500 mg PO BID meclizine 25 mg tablet 25 mg PO 4X/DAY PRN PRN (Reason: Dizziness) Qty: 20 0RF Primary Care Provider: Alexander Triana Referrals: Alexander Triana, [facility] [Primary Care Provider] - 1 Week Print Language: Turkmen Disposition Disposition: Home, Self Care
[2025-02-18 18:16] LABS: Mucous, Urine 1+ /hpf (<or=2+); Red Blood Cells-Urine 0 SEEN /hpf (0-5); Squamous Epithelial Cells - UA 0-5 SEEN /hpf (0-5); White Blood Cells 0-5 SEEN /hpf (0-5)
== END 2025-02-18 18:24 | disposition home or self-care (01) ==
PROVIDERS: Emergency Provider Emergency Medicine; PCP Nurse Practitioner Family; Visit Provider Emergency Medicine
DX: I89.0 Lymphedema, not elsewhere classified (principal); E11.65 Type 2 diabetes mellitus with hyperglycemia; Z87.891 Personal history of nicotine dependence; Z79.84 Long term (current) use of oral hypoglycemic drugs; I10 Essential (primary) hypertension
CPT/HCPCS: 80053; 81001; 84443; 85025; 93005; 99283; A4216

== ENCOUNTER 2025-05-03 10:27 | Emergency (ER) | payer BC, SELFPAY ==
[2025-05-03 10:27] VITALS: BP 150/89; PULSE 77; RESP 14; TEMP 36.7; O2SAT 92; BMI 43.4
--- NOTE | 2025-05-03 10:42 | CT_ITS ---
PROCEDURE: SOFT TISSUE NECK WITH CONTRAST 05/03/2025 REASON FOR EXAM: SUBMENTAL SWELLING AND MILD DYSPHONIA AND DYSPHAGI TECHNIQUE: CT of the soft tissues of the neck from the orbits to the upper mediastinum with intravenous contrast. Contiguous axial scans of 2.5 mm slice thicknesses. Sagittal and coronal reconstruction images were obtained. One or more dose reduction techniques were used (e.g., automated exposure control, adjustment of mA and/or kv according to patient size, use of iterative reconstruction technique). CONTRAST: Isovue-300. VOLUME: 100 ML RADIATION DOSE SUMMARY: DLP: 716.99 mGycm COMPARISON: CT neck dated 12/21/2024. FINDINGS: Airway: Unremarkable. Salivary glands: Unremarkable. Lymph nodes: No lymphadenopathy. Thyroid: No suspicious nodules or other abnormalities. Nasopharynx: Unremarkable. Oropharynx: A heterogeneously enhancing area is seen at the right tongue base on axial image 58 measuring 2.4 x 1.9 cm. Hypopharynx: Unremarkable. Retropharyngeal space: Unremarkable. Perivertebral space: Unremarkable. Vasculature: Unremarkable. No aneurysms. Orbits: Normal Paranasal sinuses and mastoids: Stable mucoperiosteal retention cyst, left maxillary sinus. Lung apices: Unremarkable. Upper mediastinum: Unremarkable. Bones: Mild multilevel spondylosis Other: Artifact from dental enhancements. CT/Soft Tissue Neck WITH Contrast IMPRESSION: 1. A heterogeneously enhancing lesion is demonstrated at the right tongue base . Direct visualization via endoscopy is recommended. Can not exclude carcinoma. 2. Stable mucoperiosteal retention cyst, left maxillary sinus. 3. Other nonacute findings detailed above. Reading Location: [place] [id number]
[2025-05-03 11:10] LABS: Absolute Lymphocyte Count 1.77 X10^3/uL (0.83-4.51); Absolute Neutrophil Count 7.6 X10^3/uL (2.0-7.7); Basophil# 0.03 X10^3/uL; Basophil% 0.3 % (0-1); Eosinophil# 0.31 X10^3/uL; Eosinophils% 2.9 % (0-5); Hematocrit 49.3 % (40-54); Hemoglobin 15.8 g/dL (13.0-16.5); Lymphocyte # 1.77 X10^3/ul (0.83-4.51); Lymphocyte % 16.8 % (19-41); Mean Corpuscular Hgb 30.1 pg (27.0-32.0); Mean Corpuscular Volume 93.9 fL (80-94); Mean Platelet Vol. 10.8 fl (6.2-12.0); Monocyte# 0.79 X10^3/uL; Monocyte% 7.5 % (0-10); NRBC Flagged by Analyzer 0 % (0-5); Neutrophil % 72.1 % (47-70); Platelet Count 182 K/mm3 (150-450); RBC Distribution Width CV 13.6 % (11.6-14.6); RBC Distribution Width SD 47.3 fl (35.1-43.9); Red Blood Count 5.25 M/mm3 (4.6-6.2); White Blood Count 10.5 K/mm3 (4.4-11.0)
--- NOTE | 2025-05-03 11:38 | EX.ED.DYSGE1 ---
HPI History of Present Illness Chief Complaint: Sore Throat Detail of Chief Complaint: Patient has swelling in the submental area with change in voice. Informant: patient Onset/Context/Timing Onset: Today (Noted upon awakening. Patient had a presentation in November for swelling and workup was unremarkable.) Context: Sudden Onset Timing: Continuous Quality: Swelling submental region Location: Submental region Current Severity: Moderate Maximum Severity: Moderate Worsened by: Nothing Relieved by: Nothing Associated Symptoms Associated Symptoms: Change in voice and difficulty swallowing. Denies dental pain Narrative Narrative: Patient is a 54-year-old male. He has history of hypertension on amlodipine and losartan hydrochlorothiazide combination. He is also on metformin. Patient had a similar presentation November of this year. He was treated for presumed infection. The CAT scan did not reveal any lymphadenopathy or evidence of soft tissue infection. Patient states he got better. Patient has never been on an DAGOBERTO inhibitor. Patient denies fever, chills night sweats. Patient denies dental pain. Patient denies difficulty opening or closing his mouth. Patient denies cardiac or respiratory symptoms. Patient denies rash. Prior similar symptoms: Yes Recent Illness/Hospitalization: No [facility] Medical History Pancreatitis No previous significant medical history Home Medications ?Medication ?Instructions ?Recorded ?Last Taken ?Type amlodipine 10 mg tablet (Norvasc) 10 mg PO DAILY #30 tabs 11/25/24 Unknown Rx erythromycin 5 mg/gram (0.5 %) eye 1 applic RIGHT EYE BID 7 days #50 11/25/24 Unknown Rx ointment grams losartan 100 1 tab PO DAILY 12/21/24 Unknown History mg-hydrochlorothiazide 25 mg tablet amoxicillin 875 mg-potassium 1 tab PO BID 7 days #14 tabs 12/22/24 Unknown Rx clavulanate 125 mg tablet meclizine 25 mg tablet 25 mg PO 4X/DAY PRN PRN Dizziness 02/04/25 Unknown Rx #20 tabs metformin 500 mg tablet 500 mg PO BID 02/04/25 Unknown History Allergy/AdvReac Type Severity Reaction Status Date / Time No Known Allergies Allergy Verified 05/03/25 10:27 Family History no significant family his Social History household members: significant other Smoking Status: Former smoker substance use type: does not use ROS ROS ED Constitutional Constitutional ED: Denies chills, fever(s), subjective, sweats or weight loss Eyes Eyes: Denies blurry vision or change in vision ENT ENT ED: Reports sore throat and other Details: Patient complains of throat pain but he points to the submental region. He also endorses change in voice and difficulty swallowing. ; Denies ear pain or rhinorrhea Cardiovascular Cardiovascular: Denies chest pain or palpitations Respiratory/Chest Respiratory/Chest: Denies cough, dyspnea or dyspnea on exertion Gastrointestinal Gastrointestinal: Denies abdominal pain, nausea or vomiting Integumentary Denies rash Hematologic/Lymphatic Hematologic/Lymphatic: Reports systems reviewed and no addt'l complaints, except as documented EXAM Physical Exam Const Vital Signs: 05/03/25 10:27 05/03/25 12:26 Temperature 98.1 F 98.6 F Temperature Source Temporal Oral Pulse Rate 77 64 Respiratory Rate 14 18 Blood Pressure 150/89 H 155/94 H Blood Pressure Mean 109 114 Pulse Ox 92 97 Oxygen Delivery Method Room Air Room Air Positive well nourished and well developed Constitutional Narrative: BMI is 43.4. Patient has slightly hoarse voice. He patient has obvious welding between the chin and larynx. General Appearance ED: well developed; Negative for pallor HEENT Reports moist mucous membranes HEENT Narrative: Patient has fillings noted. There is no evidence of a periodontal abscess. There is no fullness of the floor of the mouth. Eyes PERRL and EOMs intact bilaterally General Eye ED: Negative for pale conjunctiva or scleral icterus Neck no lymphadenopathy, supple and no JVD Neck Narrative: Patient has fullness and firmness submental region. No obvious dental pathology doubt this to be Ludewig's angina. Trachea is midline. He has subtle inspiratory stridor. Chest Wall inspection of chest normal and palpation of chest normal Resp normal respiratory effort and clear to auscultation bilaterally Cardio regular rate, regular rhythm, S1 normal heart sound, S2 normal heart sound and no murmurs Extremity normal to inspection Extremity Narrative: There is no clubbing or cyanosis noted. General Extremety ED: Negative for edema or tenderness General Extremity: Negative for edema Neuro oriented x3 and CN's II-XII intact bilaterally Sensorium / Orientation: alert Psych mental status grossly normal Skin no rashes or lesions noted, no wounds and skin turgor normal General Skin Exam: elasticity normal; Negative for jaundice or pallor MDM MDM MDM Narrative Medical decision making narrative: Differential diagnosis is angioedema due to ARB, dental infection that is not obviously seen, soft tissue neck infection, swollen salivary gland. Will obtain CAT scan and appropriate blood work. If there is no evidence infection suspect this is due to ARB since he had a similar presentation with a normal CT earlier this year History & Record Review Additional record(s) reviewed:: Prior ED visit and Prior labs Lab Data Attestation: I reviewed the patient's lab results. Lab results narrative: CBC is unremarkable. Basic metabolic panel was elevated glucose of 208 with normal CO2 anion gap. Renal function is normal. Labs: Laboratory Results - last 24 hr 05/03/25 11:04 WBC 10.5 RBC 5.25 Hgb 15.8 Hct 49.3 MCV 93.9 MCH 30.1 MCHC 32.0 RDW Std Deviation 47.3 H RDW Coeff of Jamaal 13.6 Plt Count 182 MPV 10.8 Immature Gran % (Auto) 0.400 Neut % (Auto) 72.1 H Lymph % (Auto) 16.8 L [place] % (Auto) 7.5 Eos % (Auto) 2.9 Baso % (Auto) 0.3 Absolute Neuts (auto) 7.6 Absolute Lymphs (auto) 1.77 Nucleated RBC % 0 Sodium 140 Potassium 4.3 Chloride 100 Carbon Dioxide 30.5 Anion Gap 9 BUN 18 Creatinine 0.93 Estim Creat Clear Calc 137.47 Est GFR (MDRD) Non-Af 99 BUN/Creatinine Ratio 19.0 Glucose 208 H Calcium 9.7 Radiography Diagnostic Testing: Clinical Impression(s) from Imaging Studies Soft Tissue Neck CT 05/03/25 10:42 IMPRESSION: 1. A heterogeneously enhancing lesion is demonstrated at the right tongue base. Direct visualization via endoscopy is recommended. Can not exclude carcinoma. 2. Stable mucoperiosteal retention cyst, left maxillary sinus. 3. Other nonacute findings detailed above. Reading Location: [facility] Management Discussion w/another healthcare provider: PCP (Spoke with Dr. Miller's nurse practitioner Gabbie. She was informed of patient's scan results. She put a consult in for ENT. Images were sent to [facility]. She will contact patient for follow-up.) Treatment and Re-Evaluation :: Patient was informed of concern. He was informed that his doctor was contacted. They are making arrangements for ENT follow-up. Discharge Plan Triage Chief Complaint: Sore Throat ED Provider: Danish Li Dx/Rx/DC Orders Clinical Impression: Mass of tongue, Elevated blood pressure reading with diagnosis of hypertension, Type 2 diabetes mellitus Instructions: ED Tumor, Uncertain Cause Prescriptions: No Action amlodipine [Norvasc] 10 mg tablet 10 mg PO DAILY Qty: 30 3RF erythromycin 5 mg/gram (0.5 %) ointment 1 applic RIGHT EYE BID 7 Days Qty: 50 0RF losartan-hydrochlorothiazide 100-25 mg tablet 1 tab PO DAILY amoxicillin-pot clavulanate 875-125 mg tablet 1 tab PO BID 7 Days Qty: 14 0RF metformin 500 mg tablet 500 mg PO BID meclizine 25 mg tablet 25 mg PO 4X/DAY PRN PRN (Reason: Dizziness) Qty: 20 0RF Primary Care Provider: Sandy Miller Referrals: Sandy Miller, [Primary Care Provider] - As soon as possible Activity Restrictions/Additional Instructions: Spoke to Dr. Miller's nurse practitioner. She is contacting ENT to make a follow-up appointment for you. The CAT scan reveals an abnormality and there is concerned this may represent cancer. You need to follow-up for outpatient workup Print Language: Danish Disposition Disposition: Home, Self Care
[2025-05-03 11:50] LABS: Anion Gap 9 (5-15); BUN 18 mg/dL (4-19); Calcium,Total 9.7 mg/dL (7.6-11.0); Carbon Dioxide 30.5 mmol/L (21.0-32.0); Chloride 100 mmol/L (98-108); Creatinine, Serum 0.93 mg/dL (0.70-1.20); EST Glomerular Filtration Rate 99 (>60); Estimated Creatinine Clearance 137.47 ml/min (50-250); Glucose 208 mg/dL (70-99); Potassium 4.3 mmol/L (3.3-5.1); Sodium Level 140 mmol/L (133-145)
[2025-05-03 12:26] VITALS: BP 155/94; PULSE 64; RESP 18; TEMP 37; O2SAT 97
--- OUTSIDE RECORDS SUMMARY | 2025-05-03 17:31 | XMS RPT_ITS | CCD ---
Author Organization [facility] Care Team Providers Care Cable Splicer Name Role Phone Unavailable Primary Care Provider Unavailabl e Care Physician, No Primary Primary Care Provider Unavailable Dr. Rio Norris DO Attending Provider Dr. Rio Norris DO Emergency Provider [phone] Victor Manuel Frank DO Attending Provider Dr. Victor Manuel Frank DO Emergency Provider [facility] OFFICE COORDINATOR-C, Kinjal Primary Care Provider [phone] Dr. Norbert Maharaj DO Attending Provider [phone] Norbert Maharaj DO Emergency Provider Rio Norris Attending Unavailable Care Physician, No Primary Primary Care Unava ilable Rio Norris Attending Unavailable Care Physician, No Primary Primary Care Unava ilable Burton Maki Attending Unavailable Care Physician, No Primary Primary Care Unava ilable Rio Norris Attending Unavailable Care Physician, No Primary Primary Care Unava ilable Care Physician, No Primary Primary Care Unava ilable Victor Manuel Frank Attending Unavailable Norbert Maharaj Attending Unavailable Triana VSC, Kinjal Primary Care Unavailable Care Physician, No Primary Primary Care Unava ilable Rich Lopez Attending Unavailable Abdiaziz Villeda Attending Unavailable Care Physician, No Primary Primary Care Unava ilable Rio Norris Attending Unavailable Triana VSC, Kinjal Primary Care Unavailable Danish Li Attending Unavailable Kong VSFlex, Kinjal Primary Care Unavailable RYLAN MILLER Referring Unavai RYLAN Barahona Primary Care Unavai labADELE Martin Referring Unavailable Jayden PORTER, Dr. Peng Emergency Provider [phone] Paul DO, [facility] er PAUL [place] Attending Ramin MILLER, [facility] Primary Care Ramin MILLER, [place] Attending Ramin MILLER, [facility] Primary Care Unavarobbi MILLER, [facility] Attending Ramin MILLER, [facility] Primary Care RULA Chiang Attending Unavailab le SELF Referring Unavailable PAUL, [facility] Primary Care RULA Chiang Attending Unavailab le SELF Referring Unavailable PAUL, [facility] Primary Care Ramin MILLER, [facility] Referring Ramin MILLER, [facility] Primary Care Ramin MILLER, [facility] Referring Ramin MILLER, [facility] Primary Care Ramin enrique Medications Current Medications Medication Drug Class(es) Dates Sig (Normalized) Sig (Original) amoxicillin 875 mg / clavulanate 125 mg oral tablet (8 sources) Penicillin-class Antibacterial Start: 12-22-2024 Amoxicillin-Pot Clavulanate 875-125 mg tablet Active 1 {tbl} PO TWICE A DAY 14 December 22, 2024 1:00am Start: 05-01-2023 End: 11-25-2024 Amoxicillin-Pot Clavulanate 875-125 mg tablet Discontinued 1 {tbl} PO TWICE A DAY July 28, 2024 12:00am November 25, 2024 9:49pm Start: 05-01-2023 take 1 tablet by meryl twice daily Amoxicillin-Pot Clavulanate Active 1 TABLET PO TWICE A DAY 14 May 01, 2023 12:00am atorvastatin 40 mg oral tablet (6 sources) HMG-CoA Reductase Inhibitor Start: 03-04-2025 End: 03-04-2026 take 1 tablet by mouth once daily atorvastatin (LIPITOR) 40 mg tablet Indications: Mixed hyperlipidemia Take 1 tablet by mouth once daily. 90 tablet 3 03/04/2025 03/04/2026 Active Blood-Glucose Meter (11 sources) Start: 02-22-2025 Blood-Glucose Meter Use to test blood sugar 3 times daily. 1 Each 02/22/2025 Active Blood-Glucose Sensor (FREESTYLE MALENA 3 PLUS SENSOR) bernabe (11 sources) Start: 02-22-2025 Blood-Glucose Sensor (FREESTYLE MALENA 3 PLUS SENSOR) bernabe Use to check blood sugar 3 times daily. 2 Each 02/22/2025 Active calcipotriene 0.05976 mg/mg topical ointment (8 sources) Vitamin D Analog Start: 02-28-2025 calcipotriene (DOVONEX) 0.005 % oint Apply to any affected areas two times daily on sat and sun. 120 g 5 02/28/2025 Active clobetasol propionate 0.0005 mg/mg topical ointment (8 sources) Corticosteroid Start: 02-28-2025 clobetasol (TEMOVATE) 0.05 % ointment Apply to affected area twice daily Tuesday to Tuesday as needed. Not for face, armpits or groin 60 g 02/28/2025 Active doxycycline hyclate 100 mg oral tablet (1 source) Tetracycline-class Drug Start: 02-05-2025 End: 02-12-2025 take 1 tablet by mouth twice daily doxycycline (VIBRA-TABS) 100 mg tablet Take 1 tablet by mouth two times a day for 7 days. 14 tablet 02/05/2025 02/12/2025 Active erythromycin 0.005 mg/mg ophthalmic ointment (2 sources) Macrolide, Macrolide Antimicrobial Start: 11-25-2024 Erythromycin 5 mg/gram (0.5 %) ointment Active 1 NMA RIGHT EYE TWICE A DAY 50 7 November 25, 2024 1:00am hydroCHLOROthiazide 25 mg / losartan potassium 100 mg oral tablet (16 sources) Thiazide Diuretic, Angiotensin 2 Receptor Sharona Start: 12-13-2024 take 1 tablet by mouth once daily losartan-hydroCHL OROthiazide (HYZAAR) 100-25 mg per tablet Take 1 tablet by mouth once daily. 12/13/2024 Active hydrocortisone acetate 10 mg/ml / pramoxine hydrochloride 10 mg/ml rectal cream (6 sources) Corticosteroid Start: 03-04-2025 End: 04-03-2025 apply 1 dose rectal route twice daily Pramoxine-Hydroco rtisone (ANALPRAM-HC) 1-1 % rectal cream Indications: Rectal bleeding by RECTAL route two times a day. 30 g 03/04/2025 04/03/2025 Active levothyroxine sodium 0.025 mg oral tablet (6 sources) l-Thyroxine Start: 03-04-2025 End: 03-04-2026 take 1 tablet by mouth once daily levothyroxine (SYNTHROID) 25 mcg tablet Indications: Other specified hypothyroidism Take 1 tablet by mouth once daily. 90 tablet 3 03/04/2025 03/04/2026 Active meclizine hydrochloride 25 mg oral tablet (16 sources) Antiemetic Start: 02-04-2025 take 1 tablet by mouth four times daily as needed for dizziness meclizine (ANTIVERT) 25 mg tab TAKE 1 TABLET BY MOUTH FOUR TIMES DAILY NEEDED for dizziness 02/04/2025 Active metFORMIN hydrochloride 500 mg oral tablet (16 sources) Biguanide Start: 02-04-2025 take 1 tablet by mouth twice daily Metformin 500 mg tablet Active 500 mg PO TWICE A DAY February 04, 2025 12:00am Start: 01-04-2025 take 1 tablet by meryl th every twelve hours metFORMIN (GLUCOPHAGE) 500 mg tablet Take 1 tablet by mouth every 12 hours. 01/04/2025 Active 24 hr metoprolol succinate 25 mg extended release oral tablet (11 sources) beta-Adrenergic Sharona Start: 02-22-2025 End: 08-21-2025 take 1 tablet by mouth once daily metoprolol succinate ER (TOPROL XL) 25 mg 24 hr tablet Indications: Uncontrolled hypertension Take 1 tablet by mouth once daily. 30 tablet 5 02/22/2025 08/21/2025 Active semaglutide (OZEMPIC) 0.25 mg or 0.5 mg (2 mg/3 mL) pen (16 sources) Start: 03-04-2025 End: 06-02-2025 semaglutide (OZEMPIC) 0.25 mg or 0.5 mg (2 mg/3 mL) pen Indications: Type 2 diabetes mellitus without complication, without long-term current use of insulin (HCC) Inject 0.25 mg subcutaneously one time a week. 3 mL 1 03/04/2025 06/02/2025 Active Start: 02-22-2025 End: 04-19-2025 semaglutide (OZEMPIC) 0.25 m g or 0.5 mg (2 mg/3 mL) pen Indications: Type 2 diabetes mellitus without complication, without long-term current use of insulin (HCC) Inject 0.25 mg subcutaneously one time a week. 3 mL 02/22/2025 04/19/2025 Active Completed/Discontinued Medications Medication Drug Class(es) Dates Sig (Normalized) Sig (Original) acetaminophen 325 mg / oxyCODONE hydrochloride 5 mg oral tablet (3 sources) Opioid Agonist Start: 05-02-2023 End: 11-25-2024 Oxycodone-Acetamino phen 5-325 mg tablet Discontinued 1 {tbl} PO EVERY 6 HOURS NEEDED as needed for Pain 12 May 02, 2023 November 25, 2024 9:49pm Start: 05-02-2023 take 1 tablet by meryl th every six hours as needed Oxycodone-Acetaminophen Active 1 TABLET PO EVERY 6 HOURS NEEDED 12 May 02, 2023 [id number] 200 actuat albuterol 0.09 mg/actuat metered dose inhaler (2 sources) beta2-Adrenergic Agonist Start: 08-23-2024 End: 11-25-2024 Albuterol Sulfate (Ventolin Hfa) 90 mcg/actuation HFA aerosol inhaler Discontinued 1 - 2 NMA INHALATION EVERY 4 HOURS NEEDED as needed for Wheezing August 23, 2024 12:00am November 25, 2024 9:49pm amLODIPine 10 mg oral tablet (9 sources) Dihydropyridine Calcium Channel Sharona Start: 11-25-2024 End: 03-04-2025 take 1 tablet by mouth once daily amLODIPine (NORVASC) 10 mg tablet Take 1 tablet by mouth once daily. 01/28/2025 03/04/2025 Discontinued (Course of therapy completed) benzonatate 100 mg oral capsule (2 sources) Non-narcotic Antitussive Start: 08-13-2024 End: 11-25-2024 take 2 capsules by mouth three times daily as needed for cough Benzonatate 100 mg capsule Discontinued 200 mg PO 3 TIMES DAILY NEEDED as needed for Cough August 13, 2024 12:00am November 25, 2024 9:49pm Blood Pressure Kit-Extra Large kit (1 source) Start: 03-04-2025 End: 03-05-2025 Blood Pressure Kit-Extra Large kit Indications: Primary hypertension Use as directed for blood pressure monitoring 1 each 03/04/2025 03/05/2025 12 hr guaiFENesin 600 mg extended release oral tablet (2 sources) Start: 08-23-2024 End: 11-25-2024 take 1 tablet by mouth every twelve hours as needed for congestion, then take 1 tablet by mouth every twelve hours as needed for congestion Guaifenesin (Mucinex) 600 mg tablet extended release 12hr Discontinued 600 mg PO Q12H as needed for congestion 60 August 23, 2024 12:00am November 25, 2024 9:49pm Problems Active Problems Problem Classification Problem Date Documented Da te Episodic/Chronic Abdominal hernia (2 sources) Umbilical hernia; Translations: [Umbilical hernia without obstruction or gangrene] Onset: 02-22-2025 02-22-2025 Episodic Acute bronchitis (5 sources) Acute viral bronchitis; Translations: [Acute bronchitis due to other specified organisms] 07-03-2021 Episodic Alcohol-related disorders (5 sources) Alcohol abuse; Translations: [Alcohol abuse, uncomplicated] 12-18-2019 Chronic Conditions associated with dizziness or vertigo (2 sources) Benign paroxysmal positional vertigo; Translations: [Benign paroxysmal vertigo, unspecified ear] 02-04-2025 Episodic Diabetes mellitus with complications (1 source) Hyperglycemia due to type 2 diabetes mellitus; Translations: [Type 2 diabetes mellitus with hyperglycemia] 02-18-2025 Chronic Diabetes mellitus without complication (20 sources) Diabetes mellitus; Translations: [Diabetes mellitus without mention of complication, type II or unspecified type, not stated as uncontrolled] Onset: 02-22-2025 12-30-2024 Chronic Disorders of lipid metabolism (2 sources) Mixed hyperlipidemia; Translations: [Mixed hyperlipidemia] Onset: 03-04-2025 03-04-2025 Chronic Disorders of teeth and jaw (3 sources) Gingivitis; Translations: [Chronic gingivitis, plaque induced] Onset: 03-04-2025 03-06-2025 Chronic Disorders of teeth and jaw (19 sources) Toothache; Translations: [Other specified disorders of teeth and supporting structures] 05-01-2023 Episodic Essential hypertension (17 sources) Hypertensive disorder; Translations: [Essential (primary) hypertension] Onset: 02-22-2025 12-30-2024 Chronic Gastrointestinal hemorrhage (2 sources) Rectal hemorrhage; Translations: [Hemorrhage of anus and rectum] Onset: 03-04-2025 03-04-2025 Episodic Genitourinary symptoms and ill-defined conditions (1 source) Proteinuria; Translations: [Proteinuria, unspecified] 02-18-2025 Episodic Headache; including migraine (1 source) Headache; including migraine; Translations: [Headache, unspecified] Onset: 02-15-2025 Inflammation; infection of eye (except that caused by tuberculosis or sexually transmitteddisease) (6 sources) Viral conjunctivitis; Translations: [Viral conjunctivitis, unspecified] Onset: 10-01-2024 09-16-2024 Episodic Lymphadenitis (3 sources) Submental lymphadenopathy; Translations: [Localized enlarged lymph nodes] 02-05-2025 Episodic Neoplasms of unspecified nature or uncertain behavior (1 source) Neoplasm of skin; Translations: [Neoplasm of unspecified behavior of bone, soft tissue, and skin] 04-01-2025 Episodic Other aftercare (1 source) Removal of sutures done; Translations: [Encounter for removal of sutures] 03-14-2025 Episodic Other aftercare (1 source) Encounter for removal of sutures; Translations: [Visit for suture removal] Onset: 03-14-2025 Episodic Other diseases of veins and lymphatics (1 source) Lymphedema of bilateral lower limbs; Translations: [Lymphedema, not elsewhere classified] 02-18-2025 Chronic Other eye disorders (2 sources) Red eye; Translations: [Other specified disorders of eye and adnexa] 11-04-2024 Episodic Other eye disorders (1 source) Other specified disorders of eye and adnexa; Translations: [Other specified disorders of eye and adnexa] Onset: 11-27-2024 Episodic Other gastrointestinal disorders (1 source) Defecation straining; Translations: [Other specified symptoms and signs involving the digestive system and abdomen] 03-04-2025 Episodic Other gastrointestinal disorders (1 source) Other specified symptoms and signs involving the digestive system and abdomen; Translations: [Straining during bowel movements] Onset: 03-04-2025 Episodic Other inflammatory condition of skin (3 sources) Psoriasis; Translations: [Psoriasis, unspecified] 03-06-2025 Chronic Other inflammatory condition of skin (2 sources) Psoriasis, unspecified; Translations: [Psoriasis] Onset: 02-22-2025 Chronic Other inflammatory condition of skin (1 source) Psoriasis vulgaris; Translations: [Psoriasis vulgaris] 04-01-2025 Chronic Other lower respiratory disease (9 sources) Cough; Translations: [Cough] 10-30-2022 Episodic Other lower respiratory disease (2 sources) Cough; Translations: [Acute cough] 02-05-2025 Episodic Other lower respiratory disease (3 sources) Shortness of breath; Translations: [Shortness of breath] Onset: 09-14-2024 Episodic Other lower respiratory disease (2 sources) Dyspnea; Translations: [Shortness of breath] 03-06-2025 Episodic Other nutritional; endocrine; and metabolic disorders (12 sources) Body mass index 40+ - severely obese; Translations: [Body mass index (BMI) 40.0-44.9, adult] Onset: 03-06-2025 02-22-2025 Chronic Other nutritional; endocrine; and metabolic disorders (1 source) Body mass index (BMI) 40.0-44.9, adult; Translations: [BMI 40.0-44.9, adult ([facility])] Onset: 03-06-2025 Chronic Other screening for suspected conditions (not mental disorders or infectious disease) (12 sources) Encounter for screening for lipoid disorders; Translations: [Encounter for screening for other suspected endocrine disorder] Onset: 02-22-2025 02-22-2025 Episodic Other skin disorders (3 sources) Facial swelling ; Translations: [Localized swelling, mass and lump, head] 05-02-2023 Episodic Other skin disorders (13 sources) Mass of submental region; Translations: [Localized swelling, mass and lump, neck] Onset: 03-06-2025 03-06-2025 Episodic Other skin disorders (1 source) Skin tag; Translations: [Other hypertrophic disorders of the skin] 03-05-2025 Episodic Other skin disorders (4 sources) Scleromyxedema; 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] Onset: 03-26-2025 03-14-2025 Episodic Other skin disorders (1 source) Mucinosis of the skin; Translations: [Scleromyxedema] Onset: 03-14-2025 Episodic Other skin disorders (2 sources) Localized swelling, mass and lump, neck; Translations: [Submental mass] Onset: 02-22-2025 Episodic Other skin disorders (1 source) Eruption; Translations: [Rash and other nonspecific skin eruption] 04-01-2025 Episodic Other upper respiratory infections (2 sources) Sinusitis; Translations: [Chronic sinusitis, unspecified] 08-05-2024 Chronic Other upper respiratory infections (9 sources) Acute viral pharyngitis; Translations: [Acute pharyngitis, unspecified] Onset: 01-21-2025 04-21-2021 Episodic Pancreatic disorders (not diabetes) (5 sources) Acute pancreatitis; Translations: [Acute pancreatitis without necrosis or infection, unspecified] 12-18-2019 Episodic Residual codes; unclassified (3 sources) Obstructive sleep apnea syndrome; Translations: [Obstructive sleep apnea (adult) (pediatric)] 08-31-2024 Chronic Residual codes; unclassified (1 source) Sleep apnea; Translations: [Sleep apnea, unspecified] 02-22-2025 Chronic Residual codes; unclassified (1 source) Obstructive sleep apnea (adult) (pediatric); Translations: [MARIMAR (obstructive sleep apnea)] Onset: 03-14-2025 Chronic Residual codes; unclassified (1 source) Sleep apnea, unspecified; Translations: [Observed sleep apnea] Onset: 02-22-2025 Chronic Residual codes; unclassified (1 source) Peripheral edema; Translations: [Localized edema] 02-18-2025 Episodic Residual codes; unclassified (1 source) Edema, unspecified; Translations: [Edema, unspecified] Onset: 02-23-2025 Episodic Residual codes; unclassified (2 sources) Bilateral lower limb edema; Translations: [Localized edema] 02-22-2025 Episodic Residual codes; unclassified (1 source) Localized edema; Translations: [Bilateral leg edema] Onset: 02-22-2025 Episodic Screening and history of mental health and substance abuse codes (11 sources) Ex-smoker; Translations: [Personal history of nicotine dependence] Onset: 02-22-2025 02-22-2025 Episodic Thyroid disorders (2 sources) Hypothyroidism; Translations: [Other specified hypothyroidism] Onset: 03-04-2025 03-04-2025 Chronic Unclassified (1 source) Cough, unspecified; Translations: [Cough, unspecified] Onset: 09-12-2024 Unclassified (2 sources) Acute cough; Translations: [Acute cough] Onset: 02-05-2025 Unclassified (1 source) APPOINTMENT CANCELLED 02-28-2025 Varicose veins of lower extremity (2 sources) Varicose veins of lower limb co-occurrent with edema; Translations: [Varicose veins of bilateral lower extremities with other complications] Onset: 03-04-2025 03-04-2025 Episodic Viral infection (5 sources) Disease caused by 2019-nCoV; Translations: [COVID-19] 10-22-2022 Episodic Past or Other Problems Problem Classification Problem Date Documented Da te Episodic/Chronic Unclassified (5 sources) No previous significant medical history 06-28-2022 Results Test Name Value Interpretation Reference Range Facility CNOVon 03-14-2025 CNOV Office Visit (FPDOYL ) -- JAI GREEN ([id number]) 1970 Date Time Provider Department 03/14/25 11:15 AM RYLAN MILLER FPDOYL During your visit today, we recorded the following information about you: Temperature Pulse Blood pressure Weight 97.5 degrees 73/minute 136/84 142.4 kg Height 1.829 m Rylan Miller DO 03/26/2025 8:50 PM Signed [facility] Rylan Miller DO [address] [place] [address] Date of Evaluation: 03/14/2025 Patient Name: Jai Green : 1970 Chief Complaint: Patient presents with: Results: CT results and echo results. Patient requesting skin biopsy results Follow Up: 3 week recheck Suture Removal: Placed 02/28/25 Subjective Mr. Green is a 54 year old male who presents with the following complaint(s): The history is provided by the patient. No forestry contractor was used. Suture Removal Chronicity: follow up to have rebel removed after biopsy and skin tag removed. Pertinent negatives include no chest pain, no headaches and no shortness of breath. Hypertension This is a new problem. The current episode started more than 1 month ago. The problem has been gradually improving since onset. Pertinent negatives include no chest pain, headaches, palpitations or shortness of breath. Risk factors for coronary artery disease include obesity, male gender, diabetes mellitus and dyslipidemia. Review of Systems Constitutional: Negative for fatigue and unexpected weight change. HENT: Negative for nosebleeds. Eyes: Negative for redness and visual disturbance. Respiratory: Positive for apnea. Negative for cough and shortness of breath. Cardiovascular: Positive for leg swelling. Negative for chest pain and palpitations. Genitourinary: Negative for hematuria. Neurological: Negative for dizziness, weakness, light-headedness, numbness and headaches. Hematological: Does not bruise/bleed easily. Psychiatric/Behavioral: The patient is not nervous/anxious. 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 FAMILY HISTORY Problem Relation Age of Onset Hypertension Mother Diabetes Mother Stroke Mother No Known Problems Father No Known Problems Sister No Known Problems Sister No Known Problems Brother Hypertension Maternal Grandmother Diabetes Maternal Grandmother No Known Problems Maternal Grandfather No Known Problems Paternal Grandmother No Known Problems Paternal Grandfather Social History Tobacco Use Smoking status: Former Types: Cigarettes Smokeless tobacco: Never Vaping Use Vaping status: Never Used Substance Use Topics Alcohol use: Not Currently Comment: Recovering Alcoholic Drug use: Not Currently Types: Marijuana Current Outpatient Medications Medication Sig atorvastatin (LIPITOR) 40 mg tablet Take 1 tablet by mouth once daily. levothyroxine (SYNTHROID) 25 mcg tablet Take 1 tablet by mouth once daily. clobetasol (TEMOVATE) 0.05 % ointment Apply to affected area twice daily Tuesday to Tuesday as needed. Not for face, armpits or groin calcipotriene (DOVONEX) 0.005 % oint Apply to any affected areas two times daily on sat and sun. metoprolol succinate ER (TOPROL XL) 25 mg 24 hr tablet Take 1 tablet by mouth once daily. losartan-hydroCHLOROthiazi de (HYZAAR) 100-25 mg per tablet Take 1 tablet by mouth once daily. meclizine (ANTIVERT) 25 mg tab TAKE 1 TABLET BY MOUTH FOUR TIMES DAILY NEEDED for dizziness metFORMIN (GLUCOPHAGE) 500 mg tablet Take 1 tablet by mouth every 12 hours. lancets (ULTRA THIN PLUS LANCETS) 33 gauge 1 each three times a day with meals. Use with blood glucose test three times a day. Insulin Dep? Yes semaglutide (OZEMPIC) 0.25 mg or 0.5 mg (2 mg/3 mL) pen Inject 0.25 mg subcutaneously one time a week. Pramoxine-Hydrocortisone (ANALPRAM-HC) 1-1 % rectal cream by RECTAL route two times a day. semaglutide (OZEMPIC) 0.25 mg or 0.5 mg (2 mg/3 mL) pen Inject 0.25 mg subcutaneously one time a week. Blood-Glucose Meter Use to test blood sugar 3 times daily. Lancets Use to test blood sugar 3 times daily. blood sugar diagnostic (BLOOD GLUCOSE TEST) test strip Use to test blood sugar 3 times daily. Blood-Glucose Sensor (FREESTYLE MALENA 3 PLUS SENSOR) bernabe Use to check blood sugar 3 times daily. No current facility-administered medications for this visit. I have confirmed and edited as necessary the past medical, family and social histories, HPI, and ROS obtained by others. Objective BP 136/84 Pulse 73 Temp 97.5 Ht 6' 0 (1.83m) Wt 314 lb (142.4kg) SpO2 96% BMI 42.58 kg/(m2). Physical Exam Vitals and (more content not included)... Normal [facility] Karen 03-14-2025 [facility] Telephone ([facility]PDOY[facility]) -- JAI GREEN ([id number]) 1970 M Date Time Provider Department 03/14/25 RYLAN MILLERYL During your visit today, we recorded the following information about you: Tony Paris 03/14/2025 3:52 PM Signed Cpap submitted Via [place] [facility]. Allergies As of Date: 03/14/2025 (No Known Allergies) Date Reviewed: 03/14/2025 Reviewed by: Shari Meier LPN - Fully Assessed Prescriptions as of 03/14/2025 - lancets (ULTRA THIN PLUS LANCETS) 33 gauge 1 each three times a day with meals. Use with blood glucose test three times a day. Insulin Dep? Yes - semaglutide (OZEMPIC) 0.25 mg or 0.5 mg (2 mg/3 mL) pen Inject 0.25 mg subcutaneously one time a week. - atorvastatin (LIPITOR) 40 mg tablet Take 1 tablet by mouth once daily. - levothyroxine (SYNTHROID) 25 mcg tablet Take 1 tablet by mouth once daily. - Pramoxine-Hydrocortisone (ANALPRAM-HC) 1-1 % rectal cream by RECTAL route two times a day. - clobetasol (TEMOVATE) 0.05 % ointment Apply to affected area twice daily Tuesday to Tuesday as needed. Not for face, armpits or groin - calcipotriene (DOVONEX) 0.005 % oint Apply to any affected areas two times daily on sat and sun. - semaglutide (OZEMPIC) 0.25 mg or 0.5 mg (2 mg/3 mL) pen Inject 0.25 mg subcutaneously one time a week. - metoprolol succinate ER (TOPROL XL) 25 mg 24 hr tablet Take 1 tablet by mouth once daily. - Blood-Glucose Meter Use to test blood sugar 3 times daily. - Lancets Use to test blood sugar 3 times daily. - blood sugar diagnostic (BLOOD GLUCOSE TEST) test strip Use to test blood sugar 3 times daily. - Blood-Glucose Sensor (FREESTYLE MALENA 3 PLUS SENSOR) bernabe Use to check blood sugar 3 times daily. - losartan-hydroCHLOROthiazi de (HYZAAR) 100-25 mg per tablet Take 1 tablet by mouth once daily. - meclizine (ANTIVERT) 25 mg tab TAKE 1 TABLET BY MOUTH FOUR TIMES DAILY NEEDED for dizziness - metFORMIN (GLUCOPHAGE) 500 mg tablet Take 1 tablet by mouth every 12 hours. Problem List As Of Date 03/14/2025 Noted Resolved HTN (hypertension) [I10] Diabetes (HCC) [E11.9] Former smoker [Z87.891] 03/06/2025 BMI 40.0-44.9, adult (HCC) [Z68.41] 03/06/2025 Submental mass [R22.1] 03/06/2025 Encounter Status:Closed by TONY PARIS on 03/14/25 Normal [facility] CT NECK SOFT TISSUE WO IVCON on 03-12-2025 CT NECK SOFT TISSUE WO IVCON * * *Final Report* * * DATE OF EXAM: Mar 12 2025 11:07AM [facility] 0509 - CT NECK SOFT TISSUE WO IVCON / PROCEDURE REASON: Submental mass * * * * Physician Interpretation * * * * CT NECK SOFT TISSUE WO IVCON History: Submental mass Technique: A series of contiguous helical scans were performed from the skull base to the aortic arch following injection of intravenous contrast. CT Radiation dose: Integrated Dose-length product (DLP) for this visit = 1079 mGy*cm. CT Dose Reduction Employed: Automated exposure control(AEC) and iterative recon COMPARISON: None RESULT: Postoperative Change: None apparent. Aerodigestive tract: Normal. Major salivary glands: Normal. Thyroid gland: Mildly atrophic. Lymph Nodes: No cervical lymphadenopathy by size criteria. Carotid/Parapharyngeal/Ret ropharyngeal Spaces: No focal lesions are identified. Orbits, Face and Skull Base: Retention cyst is present in the inferior left maxillary sinus. Imaged intracranial contents: No intracranial mass effect or hydrocephalus. 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 No aggressive/destructive osseous lesions are identified. Lung apices: No evidence of mass lesion or infection. IMPRESSION: No evidence of mass lesion or lymphadenopathy within the neck. Ecg Technician: YOSELYN Transcribe Date/Time: Mar 12 2025 12:18P Dictated by : DECLAN BROWN MD This examination was interpreted and the report reviewed and electronically signed by: DECLAN BROWN MD on Mar 12 2025 12:24PM EST [id number] Normal [facility] CT Neck WO contraston 2024 IMPRESSION: No evidence of mass lesion or lymphadenopathy within the neck. Ecg Technician: [facility] Transcribe Date/Time: Mar 12 2025 12:18P Dictated by : DELCAN BROWN MD This examination was interpreted and the report reviewed and electronically signed by: DECLAN BROWN MD on Mar 12 2025 12:24PM [facility] DIVISION OF RADIOLOGY * * *Final Report* * * DATE OF EXAM: Mar 12 2025 11:07AM [facility] 0509 - CT NECK SOFT TISSUE WO IVCON / PROCEDURE REASON: Submental mass * * * * Physician Interpretation * * * * CT NECK SOFT TISSUE WO IVCON History: Submental mass Technique: A series of contiguous helical scans were performed from the skull base to the aortic arch following injection of intravenous contrast. CT Radiation dose: Integrated Dose-length product (DLP) for this visit = 1079 mGy*cm. CT Dose Reduction Employed: Automated exposure control(AEC) and iterative recon COMPARISON: None RESULT: Postoperative Change: None apparent. Aerodigestive tract: Normal. Major salivary glands: Normal. Thyroid gland: Mildly atrophic. Lymph Nodes: No cervical lymphadenopathy by size criteria. Carotid/Parapharyngeal/Ret ropharyngeal Spaces: No focal lesions are identified. Orbits, Face and Skull Base: Retention cyst is present in the inferior left maxillary sinus. Imaged intracranial contents: No intracranial mass effect or hydrocephalus. 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 No aggressive/destructive osseous lesions are identified. Lung apices: No evidence of mass lesion or infection. DIVISION OF RADIOLOGY Provider, [facility] - 03/12/2025 * * *Final Report* * * DATE OF EXAM: Mar 12 2025 11:07AM [facility] 0509 - CT NECK SOFT TISSUE WO IVCON / PROCEDURE REASON: Submental mass * * * * Physician Interpretation * * * * CT NECK SOFT TISSUE WO IVCON History: Submental mass Technique: A series of contiguous helical scans were performed from the skull base to the aortic arch following injection of intravenous contrast. CT Radiation dose: Integrated Dose-length product (DLP) for this visit = 1079 mGy*cm. CT Dose Reduction Employed: Automated exposure control(AEC) and iterative recon COMPARISON: None RESULT: Postoperative Change: None apparent. Aerodigestive tract: Normal. Major salivary glands: Normal. Thyroid gland: Mildly atrophic. Lymph Nodes: No cervical lymphadenopathy by size criteria. Carotid/Parapharyngeal/Ret ropharyngeal Spaces: No focal lesions are identified. Orbits, Face and Skull Base: Retention cyst is present in the inferior left maxillary sinus. Imaged intracranial contents: No intracranial mass effect or hydrocephalus. 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 No aggressive/destructive osseous lesions are identified. Lung apices: No evidence of mass lesion or infection. IMPRESSION IMPRESSION: No evidence of mass lesion or lymphadenopathy within the neck. Ecg Technician: PSCB Transcribe Date/Time: Mar 12 2025 12:18P Dictated by : DECLAN BROWN MD This examination was interpreted and the report reviewed and electronically signed by: DECLAN BROWN MD on Mar 12 2025 12:24PM EST [facility] Radiology Study observation (narrative) [facility] CT Neck WO contrastOrdered B y: [facility] Provider on 03-12-2025 [facility] ECHOon 03-12-2025 Echocardiography Echocardiography Rep ort: Transthoracic Echo [facility] Date of service: 03/12/2025 11:15:42 AM TECHNICIAN Ordering physician: RYLAN MILLER Indication: Shortness of Breath Symptom(s): Edema Technologist: Bhakti Gilbert [facility] Interpreting physician: Randall Monsivais MD PATIENT: Name: JAI GREEN : 1970 Age: 54 years Gender: M History of hypertension and diabetes mellitus. Primary rhythm: sinus. Height: 182.90 cm BSA: 2.71 m Weight: 144.24 kg BMI: 43.1 kg/m Heart rate 68 bpm Technically difficult exam due to body habitus. Color Doppler was utilized to interrogate the cardiac valves assessed and spectral Doppler was utilized to determine the flow velocities and pressure gradients reported in this exam. MEASUREMENTS: Value Indexed Normal Max aortic dimension 3.4 cm Ao < 3.8 Left atrial volume 64 ml (biplane A-L) 24 ml/m Ileana <= 34 LV ID (diastole) 4.6 cm (2D) 1.70 cm/m LV ID (systole) 3.3 cm (2D) 1.23 cm/m IVS, leaflet tips 1.3 cm (2D) Posterior wall thickness 1.3 cm (2D) Left ventricular mass 227 g (2D) 84 g/m Ejection Fraction 55 % (visual est.) EF > 52 FINDINGS: LEFT VENTRICLE The left ventricle is normal in size. There is mild concentric left ventricular hypertrophy. Left ventricular systolic function is normal. Normal left ventricular diastolic function. Mitral annular lateral E/e': 6.3. Mitral annular septal E/e': 8.7. Wall Motion: All scored segments are normal. RIGHT VENTRICLE The right ventricle is normal in size. Right ventricular systolic function is normal. RV systolic tissue Doppler velocity is 14.0 cm/s. Tricuspid annular displacement is 2.3 cm. Estimated right atrial pressure is 3 mmHg (although IVC not seen). LEFT ATRIUM The left atrial cavity is normal in size. RIGHT ATRIUM The right atrial cavity is normal in size. Inferior Vena Cava: The inferior vena cava appears normal measuring 1.9 cm. MITRAL VALVE The mitral valve leaflets are structurally normal. There is no mitral valve regurgitation. The pressure half time is 77 msec. The peak mitral E/A ratio is 1.03. The average mitral E/e' ratio is 7.5. The mitral flow deceleration time is 265 msec. TRICUSPID VALVE The tricuspid valve leaflets are structurally normal. There is no tricuspid valve regurgitation. AORTIC VALVE The aortic valve cusps are structurally normal. There is no aortic valve regurgitation. The peak gradient is 5 mmHg (peak velocity = 112.2 cm/s). PULMONIC VALVE The pulmonic valve cusps are structurally normal. There is no pulmonic valve regurgitation. AORTA The visualized aorta is normal in size. Measurements - Mid ascending aorta 3.4 cm. INTERATRIAL SEPTUM There is no evidence of intracardiac shunting as detected by Doppler. PERICARDIUM There is no pericardial effusion. There is an epicardial fat pad. CONCLUSIONS: - Technically difficult exam due to body habitus. - Exam indication: Shortness of Breath - The left ventricle is normal in size. There is mild concentric left ventricular hypertrophy. Left ventricular systolic function is normal. EF = 55 5% (visual est.) Normal left ventricular diastolic function. - The right ventricle is normal in size. Right ventricular systolic function is normal. - There are no significant valvular abnormalities. - Definity unavailable. - The patient has not had a prior CC echocardiographic exam for comparison. * * * Final * * * CC [employer] Medical Image : [id number] Normal [facility] CNPSuly 03-08-2025 CARLOS Telephone (FPDOYL) -- JAI GREEN ([id number]) 1970 M Date Time Provider Department 03/08/25 RYLAN MILLER FPDOYL During your visit today, we recorded the following information about you: Fletcher Johnson LPN 03/08/2025 2:43 PM Signed JAI GREEN (German: [id number]) Ozempic (0.25 or 0.5 MG/DOSE) 2MG/3ML pen-injectors Form [employer] Electronic PA Form (2016 [facility]) Created 41 minutes ago Sent to Plan 31 minutes ago Plan Response 31 minutes ago Submit Clinical Questions 4 minutes ago Determination Wait for Determination [facility] to return a determination. Fletcher Johnson LPN 03/08/2025 4:12 PM Signed JAI GREEN (German: [id number]) Ozempic (0.25 or 0.5 MG/DOSE) 2MG/3ML pen-injectors Form [employer] PA Form (2016 [facility]) Created 2 hours ago Sent to Plan 2 hours ago Plan Response 2 hours ago Submit Clinical Questions 2 hours ago Determination Favorable 1 hour ago Message from Plan Your PA request has been approved. Additional information will be provided in the approval communication. (Message 3372). Authorization Expiration Date: March 07, 2028. Allergies As of Date: 03/08/2025 (No Known Allergies) Date Reviewed: 02/28/2025 Reviewed by: Declan Pack, RN - Fully Assessed Reason for Visit: Medication Authorization [1699] Cmt: Ozempic Prescriptions as of 03/08/2025 - lancets (ULTRA THIN PLUS LANCETS) 33 gauge 1 each three times a day with meals. Use with blood glucose test three times a day. Insulin Dep? Yes - semaglutide (OZEMPIC) 0.25 mg or 0.5 mg (2 mg/3 mL) pen Inject 0.25 mg subcutaneously one time a week. - atorvastatin (LIPITOR) 40 mg tablet Take 1 tablet by mouth once daily. - levothyroxine (SYNTHROID) 25 mcg tablet Take 1 tablet by mouth once daily. - Pramoxine-Hydrocortisone (ANALPRAM-HC) 1-1 % rectal cream by RECTAL route two times a day. - clobetasol (TEMOVATE) 0.05 % ointment Apply to affected area twice daily Tuesday to Tuesday as needed. Not for face, armpits or groin - calcipotriene (DOVONEX) 0.005 % oint Apply to any affected areas two times daily on sat and sun. - semaglutide (OZEMPIC) 0.25 mg or 0.5 mg (2 mg/3 mL) pen Inject 0.25 mg subcutaneously one time a week. - metoprolol succinate ER (TOPROL XL) 25 mg 24 hr tablet Take 1 tablet by mouth once daily. - Blood-Glucose Meter Use to test blood sugar 3 times daily. - Lancets Use to test blood sugar 3 times daily. - blood sugar diagnostic (BLOOD GLUCOSE TEST) test strip Use to test blood sugar 3 times daily. - Blood-Glucose Sensor (FREESTYLE MALENA 3 PLUS SENSOR) bernabe Use to check blood sugar 3 times daily. - losartan-hydroCHLOROthiazi de (HYZAAR) 100-25 mg per tablet Take 1 tablet by mouth once daily. - meclizine (ANTIVERT) 25 mg tab TAKE 1 TABLET BY MOUTH FOUR TIMES DAILY NEEDED for dizziness - metFORMIN (GLUCOPHAGE) 500 mg tablet Take 1 tablet by mouth every 12 hours. Problem List As Of Date 03/08/2025 Noted Resolved HTN (hypertension) [I10] Diabetes (HCC) [E11.9] Former smoker [Z87.891] 03/06/2025 BMI 40.0-44.9, adult (HCC) [Z68.41] 03/06/2025 Submental mass [R22.1] 03/06/2025 Encounter Status:Closed by FLETCHER JOHNSON on 03/08/25 [facility] Pathology biopsy report Preet (Tiss)Ordered By: Cici Will on 03-07-2025 Case Report Surgical Pathology R eport Case: [id number] Authorizing Provider: Rula Aquino MD Collected: 02/28/2025 11:59 AM Ordering Location: Dermatology Received: 02/28/2025 12:48 PM Pathologist: Cici Will MD Specimens: A) - Skin, Neck - Posterior B) - Skin, Left Medial Thigh [facility] Work Phone: Diagnosis Comment [id number] NVxhbn TcTAQqzQCyQ1GgoilaRSaiYY4g HC2axNwqjBWmwQRhOWXvFtGhu6 xfd215lVZqu3ckKYAKinblqTn7 jCdzK74py9B9OztwF95gtDXiGG B5TYRbBLNvxKErZDZuNWP3YNOo vRWlX4yrLRVwKK9mlqjuFPubFA jmMWWknNF1HFTnmUVcK9AqSUUn DOzaIBQgsnv1EtSoUv2scXDclJ cyMFxwYXJkXHBsYWluXGZzMjAg MR7wCCpyzD8tz6avEwPiNHI7lY 0ciaWlbE82FOGyWbXcu0C3i0Ka kdIxnT3jQ81tpXBteSCyjUAnaW FdSJNydv7krB6fo1Mvetl9mV5i NLVkcAAuB2KfwKE0ztWmaKNmt8 FibGUgZXBpZGVybWlzLiBXaXRo hO0zgDusPYZxmz5cukudmNemse FthHIoDEXanZpxaQzqOSXjk5Ut m5JhLTJstHVbBHqomFDpbXJjm3 Y5bXZpGRc7zLFdp8mja7Mew4I5 dGljIGluZmlsdHJhdGUuIEVvc2 djn8EcrFvbCQExZZAau1ImxtCw ZGlseSBpZGVudGlmaWVkLiBUaG VyZSBpcyBkaWZmdXNlIGludGVy d1EjeVguiDYsIMKvCPX0vGOaED 3pnJEaX36agIHdRA7rw5RdMUDt r3qhPBJsYJPnb0WhlHPitVIuno OhAJQyd3h3kF1uLhvfEDIvaOXn BNKmQOLjtHtwnZKcdXVbtXQ9n6 Q7UPEnUFVdgINcHXNcCEUtKIEq jrvnp6OtAlhxHAOaaYFpAY47OS SxgNspHVBqKWTqHWCnKMM2hgDt ZJEzTJTra51yoWN1TP22YKmiiB yvwUsrTPEsdR1zK1ZkYQhjmSXq s9Ila74md2Amh6ZgRMZbJACaFY Y0eWOdZLYqC0CiHNStAQ8cBVYr g1Okv2VvKDRetLa1NVQigYWdNY XwsJ7wF8GiLAAqrlRseDJ6uB2k IUinENQtP47osMOqOFPdQvkqJZ J9 [facility] Work Phone: Disclaimer i5eomBGgTWHvw7jcYPKl bGFuZz EwMzNcZnRuYmpcdWMxIHtccnRm EQjbxLxyGRIwPKVxs8vol9kerA MmFUWvc7wmm7NzbQBvrZLlTTmh gHObhyOyjd20kLX4bB74CI8gJL DoQuM2DCZjyiX7Aka1LVYgVOGq cFVhC727p9bdn8auvxFvhTI5SD LqLIUnR3JrBS0yRPLteNXpO94i rFMsBUM5UXDbQARdoBUuHFDbJU Y2BKAkqPGbR4viKTDwJK2lhxhd UBebLOlzEJEqmTR0MDQxdBYtU8 CiATBiXKjjPWOqebj4BzIcJj3y sAEcjGlcVCvfR5jrpK3lGqX3KS tyT6ptyU3yMLb8OQygICXvoGI6 fmD8HUTmaNQlP3GdaU1nVLIiYU 9ckxd9q9fsFJG3SRnsHWHkOsO9 mcS3VPEzgWChZIrkxKGhctynLH ImANUjA3VlBRseJf4kSOVxmrfb BUI0PAeajGViODIta7HhWNqYCO soRMtyM3godO9rqrrewUKvGUJv ABCvQFXOWTCtm2SxJJ6kIYMojC NlWOR9ZWKlq3XtA3Bng2GbgX1d gI1tpHxixZ1puHLgnPPktBxceF 8ccH1jVqm0v3Lva0ScpvZeKOUf MLBfnWPjnM0qKB4tPoVgjb5rzM O0CNd8NnYcESi0ZTSqo14gzOEq fXFvaVZ0KWIiVKNsTWRjjYIjtI lpPJQgCylagNfiAAHfkdFjvr1k pdzsfNTyg3TiaJ2lsEZ0nSAecS 4vQ8yeijJeRB9pNXVoeS3kBdwy HYZzZaIfcYHMPcADd11svKBvRE IxjYpveT6ghVJgptFqMFRis0Kj cY6gyIUJYGPbE8bhCPODVOYfsz XcDS36JDhGEOrpBLCncRR6qxYP b9CagIHuvNikUQzzw18oC7AfWM QlrSOZv7PnfMWutLkdGxcjqles BSAJXNA8g68sDJ6izNe7NLljSA 2zwuL3LPlxx7AeePApQFLZtrCl XE1dSaz0ECLaCNMplLQpkEDUSA 44YNEdOY3ephXysdRHKVQcoQxo Zc0udWwvNE9swGr9WOqnHK3fPX KnmD1mVFmtw6BmjFZvVMLiasEo FS8tfl3prsPli20cgXO9QW84QN gkjBwgP4xNVJCdDPZ7jOVllPRf iQIzJH4qHOUgziCbl2NuMX7fLE AwVCVxHNHjy6CuWX9vuOSll4Em wUQ7QPPnAPTtJOVtJZUzLRPqd2 RpVVWxgr33SWJnAmhotJayQPZG DB5zSwWmFKwHSTzbBSImO2HoXB VhBQE5ooCovrWTEXkHQSTlSCC4 WQmyYzekOOI0dhRvWKLve3JzYN jxP0ahI36ljXomvNr9bIO4UWB7 kP9lUcNGcOTkMEB7VNB7icUuse ElmVBlLJAex5BwJ2npqnthEIvb dCOlkI6hFIHwQDEkJIQrAFQzt8 SzSRIeq6TmIyTjcbKvYWEwYFDa OKBcpP59QTW3iXmlvYdrbmTjWY 1bNNQxfhIkCLLzDIQzfA2vNP7d yMAxinRoJE6aRO4pI5C6vGGuXT XjguPmv8dpDRS5HAmuGRMpfFXj wAOeYKDvnSttNINnty90 [facility] Work Phone: FINAL DIAGNOSIS z7xvdDNoASKfuVAiRGTh NVxhbn VnEKFkzDObQ2UgdtzdUDflBS1q RA2veJdvcNUedNOhNTXaEjMko2 wpe443cDOau1mdLRCFxtizbLu1 cBnbS15rd3N8DgdnQ2pqBWFvMJ kkHXUrQJjzkAPlZVn8YCEreKBw pfUkVtEmFFHguUBzeZW1UGZeJT 9agorxNOsgAWkcZTVuwvF1QKUt aZWzO0AdQFLyTQ8zbolhOUD6PY euFUEdWXR4EhBuZHGqe7Spbmz8 MjBccGFyZFxwbGFpblxmczIwXG QkCTIDXyHVi2fdODTzSDCeCE6h aS7gaMRjyP1aAYLlcK6gaBGwzD 1yy8r9FUJgprEsEX8drmLJD9aj beQdIJ0eNXgfnEzxPs1mADxkJ4 belveqejWiDmYrO7vglx3luMpm YQEaVRgti8HxDKShtP5kdhPxBQ Bhclx+PTXgorIJJyNTw6bxFATt LIS3ZM7xRUvwqRV9wIzqmZqpu2 uffgNcBzfvgIC9JctiCUHnZJh+ ZS6dFoS0vJUihAfba47rcV8lpJ JtHIaaEONbxioiVIXqV9LNJ3gX Q28oEfS3YpU4SaDyAyVwUMFdqj 0= [facility] Work Phone: [phone] Gross Description x2zhnFPgAJYzaSNNPPNs MDJcYW 5phOoovAc5rTywIQFkmqY0vFFe SCabc2tkEUY3q3xhmgZBJfjnLF NpSV8rGGkaCOBhYL9vMkZeMSHf ZmYxXHBhcGVydzEyMjQwXHBhcG DpdZG1ULVcUK7lkijyGNcuYJrk UUIwgiV3SRLmwTYdD5GdOBSjLV 4vvgteJHL9JJKBXipjOg9utMCr bHtcZjFcZmNoYXJzZXQwXGZzd2 xdkyMOkcaeiCr2vD7NIPYcQ6Qq GR8Nk6fiPNSquMXyUTY8QBagu6 njNIbaNLI1BOEgSXYlMFQjTO8O BeZyYWwfDNQ4AaElAxP7WQj2UQ CYLIOtRSY1WSN8HtDvQTw9UVtj XFxuaCBcXHQgMSBcXGZsIFxcbm X2w2afYCNjfQLrZZK4NUdeb1nd MBbpVBL4ZQUsWlTeWDEbXW4GBa RuBCceMDJ7BtGyYpL5EZt5SVKH VfEeGfCmDesqVVz8MKnwTKg2MB y5UIxTVmRxQZU1TID2BNgpBXF8 NDIzMyBcXHQgMiBcXHNzIDMgXF lnwFZpDM0kmIizRLJoKM9GDPTq ZIvaIIMpQxEvYW8eW1itftxagD JjaFxmczIyXHBhciANClxwYXJk IL9GZAAuKAdcQFr7pyIjMZEtPe JwXYJxQ97hv0NKs0IiCO3BJPt7 vaNrryAGMklrzzBqLKFpK5Rebq TqLVhjXIOvnh3nrBdgUFOhHZR2 o83io6WsrWGlfXPpk2UriXIcYP UrKVA9AP1gdaEzVJLgq8G1VPSj vW1gBUsyfwNuGRWsnvkrxD6ySH 60GCnhJG83JQljZO04GVMfCxQB uUCjnW6ymnOqcgBfrLKkS1PfHV 6yVC60LKibjWLnnDFgwZZ9YRTu uS2nhBfzJYFbj9NmfFNbba3gPZ BhciANClxwYXIgDQpBSkIgQXBy eMfeHzcgNqGkWHX2MsCdHBONSU HblrEYDrjcSKJvOLlne1WcNCft bKusHIUuQqYrXBwFud0vgpAmsT GxzA9ruRjtufYnJYPpi0QjLXWg LUOaO0zhjdMdNS5gMHRzzI9dMu wgOTUwMCBFdWNsaWQgQXZlLiwg B5uebjHtCG5vOZVJGIV2QXQ8JL 7VSEDyiWWJSUM1JQ2gDGtzTIRj I5GsT2PisqE7XSOsrxPXUechNp aldLrpp4AvsOBzZQGfVLgfeBDt OQQeJDEbSVtmTgCMCzWmDtZ9UO PlKbklLgYyYXl1LDziB3TSOTKv NCZ1XjA6KQOaDvC3XBd0IMSTTp 2pPFOaWkX9WYFgExFeNBLhMaQh FOi1PEUnELcxyaQcJFqaBjlfUL qnP03buYFaXPsjYaUpZRftsSnv HRNtXEF9NV3SYn0mV6gzcdldxo HeAPVpwxRHUykdFKUkXQ5GGCUa FDbvCEc3efSnWZLtMhHpYCBjK0 8vt6LHs1BeYU5RXSi0ovBxncmw KtLvPOKiePQMc9FvCLHXXifkaf ZoHEOiX4OywnXbLTicKCJaiw7s iHyhVUbdRFPfz9AmjBGodEFlNr F1TB6lqIryfbIakL1dVSD1woum a5cgTUKssPXyCLZ8MDNweH9dwK Ftr6PxbB7dYARkKFU2SBFhLdU8 NIJvQXBrtA0aVVPbZGXxiUVxfQ 3wxzNcugOmeTYwJ9PkEX3iYTAi vSVsxYmhs4FgeGd0yTRtFRqmNN Gfge6rwHowGWpyIA3xAXJlDLSv BQE2TZ9cGAOiowTZKtdqICSyBA q2yqIaonMBOvbyMACiSLxIXuSV kBWwlVQ2QEFmFGA1AZZ1CHHpKJ 2nyFXzYH7GFNXxsoAJTkwkb0Tz JFB5VV4papQ2rG8zKJHffjBqca 2cYTWdxUHZbGH3SMfjdnNvH0oa mjtbLYD1TFKdENB1U2ziRJTNlu ShICVKmOV1QJrrwzBkZF7GZYP6 TGm3DAJhsyPYDnacLNEdOMSmlJ AIr5OmOYDOGkldiLbcLqZtqIJx AzP4OJQsuRVtAOT5VH4zvJzcRO VpW2GsP8ZqkvD5CBLczcJGJxsi QDFwMH9PFQJtKOzuKZ4PxF== [facility] Work Phone: Performing Lab v4scsIVtIUVarWJdFOFj Mlxhbn ZiNNVcgUGxB3OfsyqeDHstJE8y WM6nfLnusROzxJKxFDGrJrLar8 xqu207nSNmc3wdPDJQogiwgGj5 gNriN72hl5W0JwzyO69vrGKkVD D7QBYsGOFyxUFeARLfPYI5OZZy zSAnR2ayHEWnCJ1lzcpuLFahHF dqTMWadTX1QOZjiMEqC7QwDDUz LBrzOFHhlkw1LdJvPn4alYQblH zwLGovU2sjaR7uTaW1FDshG2lc eG7cPJs4SVwtCNDyiFX1tqA5BP QpzNOyX8DjeV7yHDJhJY8kjld3 s7eaSBF6FZkrSKFgXpU7tuN1GR BccGFyZFxwbGFpblxmczIwIERp SNohn3Q0nWOsvL70GSSxjsA0RP Hjf39alYWgXx9diPVbAFD0PdYN tYR2OCpkjnEgV5zgnxsqCV5dqS 7bD8DuuLMpRRssj5ZmoRUcTZhb Kn2pVPLpfamzWUa0ICYxHQJroJ zdTRJ6GY11FUipSSUiugSFMcMu SUCnJMHvnSVgTTMGAKB9HPO0PY KbIWGMIPAoSVF3BKS9XXVsNXLk oHUvOYrxAGHmRYHus5NtfK4biJ YAnUXbC4JuhdyzJ8XtqIMtWAvz kyQlW2sjDOBHIQlvVSH8 [facility] Work Phone: [facility] Work Phone: Karen 03-06-2025 MAKENNA Telephone (FPDOYL) -- PETERJAI ([id number]) 1970 M Date Time Provider Department 03/06/25 RYLAN MILLERYL During your visit today, we recorded the following information about you: Shari Meier LPN 03/06/2025 2:21 PM Signed Prior auth submitted through [employer] for Ozempic. Insurance denied Ozempic. Paper copy to be scanned into chart or document attached to medication in medication tab. Please advise. Rylan Miller DO 03/08/2025 11:05 AM Signed Fletcher Grijalva LPN 03/08/2025 2:54 PM Signed Prior authorization resubmitted to insurance with lab results Allergies As of Date: 03/06/2025 (No Known Allergies) Date Reviewed: 02/28/2025 Reviewed by: Declan Pack, SIMONE - Fully Assessed Reason for Visit: Medication Authorization [1699] Cmt: ozempic Prescriptions as of 03/08/2025 - lancets (ULTRA THIN PLUS LANCETS) 33 gauge 1 each three times a day with meals. Use with blood glucose test three times a day. Insulin Dep? Yes - semaglutide (OZEMPIC) 0.25 mg or 0.5 mg (2 mg/3 mL) pen Inject 0.25 mg subcutaneously one time a week. - atorvastatin (LIPITOR) 40 mg tablet Take 1 tablet by mouth once daily. - levothyroxine (SYNTHROID) 25 mcg tablet Take 1 tablet by mouth once daily. - Pramoxine-Hydrocortisone (ANALPRAM-HC) 1-1 % rectal cream by RECTAL route two times a day. - clobetasol (TEMOVATE) 0.05 % ointment Apply to affected area twice daily Tuesday to Tuesday as needed. Not for face, armpits or groin - calcipotriene (DOVONEX) 0.005 % oint Apply to any affected areas two times daily on sat and sun. - semaglutide (OZEMPIC) 0.25 mg or 0.5 mg (2 mg/3 mL) pen Inject 0.25 mg subcutaneously one time a week. - metoprolol succinate ER (TOPROL XL) 25 mg 24 hr tablet Take 1 tablet by mouth once daily. - Blood-Glucose Meter Use to test blood sugar 3 times daily. - Lancets Use to test blood sugar 3 times daily. - blood sugar diagnostic (BLOOD GLUCOSE TEST) test strip Use to test blood sugar 3 times daily. - Blood-Glucose Sensor (ArtimiSTYLE MALENA 3 PLUS SENSOR) bernabe Use to check blood sugar 3 times daily. - losartan-hydroCHLOROthiazi de (HYZAAR) 100-25 mg per tablet Take 1 tablet by mouth once daily. - meclizine (ANTIVERT) 25 mg tab TAKE 1 TABLET BY MOUTH FOUR TIMES DAILY NEEDED for dizziness - metFORMIN (GLUCOPHAGE) 500 mg tablet Take 1 tablet by mouth every 12 hours. Problem List As Of Date 03/06/2025 Noted Resolved HTN (hypertension) [I10] Diabetes (HCC) [E11.9] Former smoker [Z87.891] 03/06/2025 BMI 40.0-44.9, adult (HCC) [Z68.41] 03/06/2025 Submental mass [R22.1] 03/06/2025 Encounter Status:Closed by FLETCHER JOHNSON on 03/08/25 [facility] 03-04-2025 [facility] Office Visit (CARLYL ) -- JAI GREEN ([id number]) 1970 M Date Time Provider Department 03/04/25 2:15 PM RYLAN MILLER During your visit today, we recorded the following information about you: Pulse Blood pressure Weight Height 67/minute 138/88 141.5 kg 1.829 m Rylan Miller DO 03/06/2025 9:28 PM Signed [facility] [place] Rylan Miller DO [address] [place] [place] [address] Date of Evaluation: 03/04/2025 Patient Name: Jai Green : 1970 Chief Complaint: Patient presents with: Diabetes: Running high 120-160s Rectal Problem Eye Problem: Eyes watering more recently Edema: Bilat ankles Right side more Results: Biopsy at Derm - last Large skin tag removed - stitches Medication Problem: Metformin - would like to discuss options Thinks it may be causing swelling Medication Follow-up: Needs new rx for lancets - current rx does not work Thyroid Problem: Labs off Hyperlipidemia: Labs off Subjective Mr. Green is a 54 year old male who presents with the following complaint(s): The history is provided by the patient and a significant other. Diabetes He presents for his follow-up diabetic visit. He has type 2 diabetes mellitus. Pertinent negatives for hypoglycemia include no dizziness, headaches, nervousness/anxiousness, seizures or tremors. Pertinent negatives for diabetes include no chest pain, no fatigue and no weakness. Current diabetic treatment includes oral agent (monotherapy). He is following a generally unhealthy diet. When asked about meal planning, he reported none. He never participates in exercise. His breakfast blood glucose range is generally 130-140 mg/dl. Eye Problem This is a recurrent problem. The problem occurs daily. Pertinent negatives include no abdominal pain, chest pain, coughing, fatigue, headaches, nausea, numbness or weakness. Associated symptoms comments: Watery eyes . Edema This is a recurrent problem. The problem occurs daily. The problem has been gradually improving. Pertinent negatives include no abdominal pain, chest pain, coughing, fatigue, headaches, nausea, numbness or weakness. Associated symptoms comments: Swelling to lower extremities . Thyroid Problem Presents for follow-up visit. Patient reports no anxiety, fatigue, palpitations or tremors. Review of Systems Constitutional: Negative for activity change, appetite change, fatigue and unexpected weight change. HENT: Negative for nosebleeds. Eyes: Negative for redness and visual disturbance. Respiratory: Negative for apnea, cough and shortness of breath. Cardiovascular: Positive for leg swelling. Negative for chest pain and palpitations. Gastrointestinal: Positive for rectal pain (with blood after hard bowel movement.). Negative for abdominal pain and nausea. Genitourinary: Negative for hematuria. Neurological: Negative for dizziness, tremors, seizures, weakness, light-headedness, numbness and headaches. Hematological: Does not bruise/bleed easily. Psychiatric/Behavioral: Negative for agitation, behavioral problems, decreased concentration, dysphoric mood, hallucinations, self-injury, sleep disturbance and suicidal ideas. The patient is not nervous/anxious and is not hyperactive. 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 FAMILY HISTORY Problem Relation Age of Onset Hypertension Mother Diabetes Mother Stroke Mother No Known Problems Father No Known Problems Sister No Known Problems Sister No Known Problems Brother Hypertension Maternal Grandmother Diabetes Maternal Grandmother No Known Problems Maternal Grandfather No Known Problems Paternal Grandmother No Known Problems Paternal Grandfather Social History Tobacco Use Smoking status: Former Types: Cigarettes Smokeless tobacco: Never Vaping Use Vaping status: Never Used Substance Use Topics 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 metoprolol succinate ER (TOPROL XL) 25 mg 24 hr tablet Take 1 tablet by mouth once daily. losartan-hydroCHLOROthiazi de (HYZAAR) 100-25 mg per tablet Take 1 tablet by mouth once daily. metFORMIN (GLUCOPHAGE) 500 mg tablet Take 1 tablet by mouth every 12 hours. lancets (ULTRA THIN PLUS LANCETS) 33 gauge 1 each three times a day with meals. Use with blood glucose test three times a day. Insulin Dep? Yes semaglutide (OZEMPIC) 0.25 mg or 0.5 mg (2 mg/3 mL) pe (more content not included)... Normal [facility] CNOVon 02-28-2025 CNOV Office Visit (DERMAV ) -- PETERJAI ([id number]) 1970 M Date Time Provider Department 02/28/25 11:40 AM RULA AQUINO During your visit today, we recorded the following information about you: Referring Provider: SELF [200] Allergies As of Date: 02/28/2025 (No Known Allergies) Date Reviewed: 02/28/2025 Reviewed by: Declan Pack, SIMONE - Fully Assessed Reason for Visit: Biopsy [1351] Primary Visit Diagnosis:APPOINTMENT CANCELLED Prescriptions as of 02/28/2025 - clobetasol (TEMOVATE) 0.05 % ointment Apply to affected area twice daily Tuesday to Tuesday as needed. Not for face, armpits or groin - calcipotriene (DOVONEX) 0.005 % oint Apply to any affected areas two times daily on sat and sun. - semaglutide (OZEMPIC) 0.25 mg or 0.5 mg (2 mg/3 mL) pen Inject 0.25 mg subcutaneously one time a week. - metoprolol succinate ER (TOPROL XL) 25 mg 24 hr tablet Take 1 tablet by mouth once daily. - Blood-Glucose Meter Use to test blood sugar 3 times daily. - Lancets Use to test blood sugar 3 times daily. - blood sugar diagnostic (BLOOD GLUCOSE TEST) test strip Use to test blood sugar 3 times daily. - Blood-Glucose Sensor (FREESTYLE MALENA 3 PLUS SENSOR) bernabe Use to check blood sugar 3 times daily. - amLODIPine (NORVASC) 10 mg tablet Take 1 tablet by mouth once daily. - losartan-hydroCHLOROthiazi de (HYZAAR) 100-25 mg per tablet Take 1 tablet by mouth once daily. - meclizine (ANTIVERT) 25 mg tab TAKE 1 TABLET BY MOUTH FOUR TIMES DAILY NEEDED for dizziness - metFORMIN (GLUCOPHAGE) 500 mg tablet Take 1 tablet by mouth every 12 hours. Problem List As Of Date 02/28/2025 Noted Resolved HTN (hypertension) [I10] Diabetes (HCC) [E11.9] Encounter Status:Closed by MEYER, RULA on 02/28/25 [facility] CNOV Office Visit (DERMAV ) -- JAI GREEN ([id number]) 1970 M Date Time Provider Department 02/28/25 9:40 AM RULA AQUINO DERMAV During your visit today, we recorded the following information about you: Rula Aquino MD 04/01/2025 11:20 PM Signed New patient CHIEF COMPLAINT: New Patient and Psoriasis HISTORY OF PRESENT ILLNESS: Jai Green is a 54 year old male who presents to follow up for rash located on the left and right hand, feet, and back of neck, right and left lower legs. Present for: psoriasis present for years Skin lesions are sometimes itchy. Condition is same. Patient also reports new skin thickening and hardening on his upper back. Asymptomatic. Reports he has recently been diagnosed with DM2 and HTN, patient did not used to see a PCP until recently so he is unsure how long he has had diabetes. Patient does not have joint pain. Current treatment: None Past treatments: None Pertinent Past Medical History: Psoriatic arthritis: No Inflammatory bowel disease: No Multiple sclerosis: No Tuberculosis or other major infections (i.e. HIV, hepatitis): No History of cancer/ skin cancer: No History of lupus: No History of chronic heart disease: No Social History Tobacco use: No Alcohol use: No Occupation: [employer] Past Medical History PAST MEDICAL HISTORY Diagnosis Date Diabetes (HCC) HTN (hypertension) Medications Current Outpatient Medications Medication Sig semaglutide (OZEMPIC) 0.25 mg or 0.5 mg (2 mg/3 mL) pen Inject 0.25 mg subcutaneously one time a week. metoprolol succinate ER (TOPROL XL) 25 mg 24 hr tablet Take 1 tablet by mouth once daily. Blood-Glucose Meter Use to test blood sugar 3 times daily. Lancets Use to test blood sugar 3 times daily. blood sugar diagnostic (BLOOD GLUCOSE TEST) test strip Use to test blood sugar 3 times daily. Blood-Glucose Sensor (FREESTYLE MALENA 3 PLUS SENSOR) bernabe Use to check blood sugar 3 times daily. amLODIPine (NORVASC) 10 mg tablet Take 1 tablet by mouth once daily. losartan-hydroCHLOROthiazi de (HYZAAR) 100-25 mg per tablet Take 1 tablet by mouth once daily. meclizine (ANTIVERT) 25 mg tab TAKE 1 TABLET BY MOUTH FOUR TIMES DAILY NEEDED for dizziness metFORMIN (GLUCOPHAGE) 500 mg tablet Take 1 tablet by mouth every 12 hours. No current facility-administered medications for this visit. Allergies ALLERGIES No Known Allergies REVIEW OF SYSTEMS: Constitutional: Denies fever, chills, unintentional weight loss Skin as per HPI PHYSICAL EXAMINATION: Well appearing, pleasant, in NAD Alert and oriented x3 Mood and affect: normal Skin exam performed including face, neck, chest, back, abdomen, bilateral upper extremities, bilateral lower extremities, buttocks, and genitals. Pertinent findings include: - well demarcated erythematous scaly plaques with white micaceous scale involving anterior legs and hands Neck - Posterior Indurated erythematous plaques Left Medial Thigh Pedunculated skin color nodule ASSESSMENT AND PLAN: Psoriasis vulgaris Medical complexity: chronic illness with exacerbation and/or progression - BSA: 3-4% - Overall, flared - Discussed psoriasis is a chronic problem that may come and go - Discussed psoriasis systemic inflammation increases risks of heart disease, HTN, diabetes mellitus; encouraged routine preventative care with PCP as well as healthy life style. - Discussed that infections, stress, damage to the skin and alcohol may trigger flares of psoriasis Start: - clobetasol (TEMOVATE) 0.05 % ointment; Apply to affected area twice daily Tuesday to Tuesday as needed. Not for face, armpits or groin. Discussed extended use of topical steroids can cause thinning of skin, atrophy, telangiectasias, striae or pigmentary changes. - calcipotriene (DOVONEX) 0.005 % oint; Apply to any affected areas two times daily on sat and sun. Proper use of topical steroid discussed as well as possible side effects of over use including skin thinning, atrophy, telangiectasias, and striae. 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 Based on history, clinical presentation, and/or distribution, favor scleredema. Differential diagnoses include other sclerosing disorders. Potential etiology, course, prognosis, and treatment option(s) reviewed. Risks and benefits of trial of topical therapy versus skin biopsy discussed. Patient agreed to biopsy today. Start: - clobetasol (TEMOVATE) 0.05 % ointment; Apply to affected area twice daily Tuesday to Tuesday as needed. Not for face, armpits or groin. Discussed extended use of topical steroids can cause thinning of skin, atrophy, telangiectasias, striae or pigmentary changes. - calcipotriene (DOVONEX) 0.005 % oint; Apply to any affected areas two times daily on sat and sun. PROCEDURE NO (more content not included)... Normal [facility] Pathology biopsy report Preet (Tiss)on 02-28-2025 AP DISCLAIMER Normal [facility] Comment on above: Order Comment: Speci men Type: TISSUE SPECIMEN Ordering Facility: [facility] Address: [address] [place] [address] Result Comment: Aminah iyer Developed Test (LDT) Disclaimer: Performance characteristics of immunohistochemical, immunofluorescent, and chromogenic in-situ hybridization tests have been determined by the performing laboratory within [facility]'s [facility] Pathology and Laboratory Medicine Department ([facility], [facility], [facility], [facility], [facility], [facility], or [facility]) in a manner consistent with CLIA requirements. One or more of these tests may not have been cleared or approved by the FDA. [facility] is regulated under CLIA as qualified to perform high-complexity testing. These tests are used for clinical purposes. These should not be regarded as investigational or for research. Positive and negative controls stain appropriately. Performed By: #### 6 6121-5 #### [facility] CLIA [id number] [address] [place], [place] [address] [place] [address] [place] CASE REPORT Normal [facility] Comment on above: Order Comment: Speci men Type: TISSUE SPECIMEN Ordering Facility: [facility] Address: [address] [place] [address] Result Comment: Surg [facility] Pathology Report Case: [id number] Authorizing Provider: Rula Aquino MD Collected: 02/28/2025 11:59 AM Ordering Location: Dermatology Received: 02/28/2025 12:48 PM Pathologist: Cici Will MD Specimens: A) - Skin, Neck - Posterior B) - Skin, Left Medial Thigh Performed By: #### 6 6121-5 #### [facility] CLIA [id number] [address] [place] [address] DIAGNOSIS COMMENT Normal [facility] Comment on above: Order Comment: Speci men Type: TISSUE SPECIMEN Ordering Facility: [facility] Address: [address] [place] [address] Result Comment: A. H istologic sections show a basketweave to compact stratum corneum overlying a largely unremarkable epidermis. Within the dermis, there is a mildly dense superficial perivascular lymphohistiocytic infiltrate. Eosinophils are not readily identified. There is diffuse interstitial edema with mild collagen sclerosis and focal mucin deposition. The clinical history and images are reviewed. 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 Clinical correlation is recommended. Performed By: #### 6 6121-5 #### [facility] CLIA [id number] [address] [place] [address] FINAL DIAGNOSIS Normal [facility] Comment on above: Order Comment: Speci men Type: TISSUE SPECIMEN Ordering Facility: [facility] Address: [address] [place] [address] Result Comment: A. S kin, neck - posterior, punch biopsy: - Scleredema with focal changes of scleromyxedema, see comment. B. Skin, left medial thigh, shave biopsy: - Nevus lipomatosus. WFB/KK/mm/03/04/2025 at 1451 EDT Performed By: #### 6 6121-5 #### [facility] CLIA [id number] [address] [place] [address] FINAL PERFORMING LAB Normal [facility] Comment on above: Order Comment: Speci men Type: TISSUE SPECIMEN Ordering Facility: [facility] Address: [address] [place] [address] Result Comment: Diag nostic interpretation performed at: [facility], [address] [place] [address] CLIA# [id number] [employer] Consultant: German Martin MD Performed By: #### 6 6121-5 #### [facility] CLIA [id number] [address] [place] [address] [place] GROSS DESCRIPTION A. Skin Normal [facility] Comment on above: Order Comment: Speci men Type: TISSUE SPECIMEN Ordering Facility: [facility] Address: [address] [place] [address] Result Comment: Rece ived in formalin are two segments of rajan and rajan-red, soft skin aggregating to 0.7 x 0.4 x 0.4 cm. Specimen is bisected. Totally submitted in two cassettes. AJB February 28, 2025 8:12 PM Gross examination performed at [facility], [address] [place] [address] B. Skin Received in formalin is a segment of rajan-pink pink, wrinkled rubbery skin measuring 1.8 x 1.3 x 0.9 cm. The specimen is bisected. Totally submitted in formalin in one cassette. SS March 01, 2025 2:54 AM Gross examination performed at [facility], [address] [place] [address] Performed By: #### 6 6121-5 #### [facility] CLIA [id number] [address] [place] [address] [place] SKIN / NAIL BIOPSYon 025 Type of biopsy: horner ential Informed consent: discussed and consent obtained Timeout: patient name, date of , surgical site, and procedure verified Procedure prep: Patient was prepped and draped in usual sterile fashion Prep type: Isopropyl alcohol Anesthesia: the lesion was anesthetized in a standard fashion Anesthetic: 1% lidocaine w/ epinephrine 1-100,000 local infiltration Instrument used: DermaBlade Hemostasis achieved with: suture Outcome: patient tolerated procedure well Post-procedure details: sterile dressing applied and wound care instructions given Dressing type: bandage and petrolatum [facility] Karen 02-27-2025 CARLOS Telephone (CARLYL) -- JAI GREEN ([id number]) 1970 M Date Time Provider Department 02/27/25 RYLAN MILLERYL During your visit today, we recorded the following information about you: Shari Meier LPN 03/01/2025 9:53 AM Addendum Called and spoke with patient to office an appointment for today and patient declined. States he has to work until 4pm. States he is still taking his medication. Patient will keep his appointment for Tuesday03/04/25. FYI. See [employer] message below. Allergies As of Date: 02/27/2025 (No Known Allergies) Date Reviewed: 02/22/2025 Reviewed by: Shari Meier LPN - Fully Assessed Prescriptions as of 03/01/2025 - clobetasol (TEMOVATE) 0.05 % ointment Apply to affected area twice daily Tuesday to Tuesday as needed. Not for face, armpits or groin - calcipotriene (DOVONEX) 0.005 % oint Apply to any affected areas two times daily on sat and sun. - semaglutide (OZEMPIC) 0.25 mg or 0.5 mg (2 mg/3 mL) pen Inject 0.25 mg subcutaneously one time a week. - metoprolol succinate ER (TOPROL XL) 25 mg 24 hr tablet Take 1 tablet by mouth once daily. - Blood-Glucose Meter Use to test blood sugar 3 times daily. - Lancets Use to test blood sugar 3 times daily. - blood sugar diagnostic (BLOOD GLUCOSE TEST) test strip Use to test blood sugar 3 times daily. - Blood-Glucose Sensor (FREESTYLE MALENA 3 PLUS SENSOR) bernabe Use to check blood sugar 3 times daily. - amLODIPine (NORVASC) 10 mg tablet Take 1 tablet by mouth once daily. - losartan-hydroCHLOROthiazi de (HYZAAR) 100-25 mg per tablet Take 1 tablet by mouth once daily. - meclizine (ANTIVERT) 25 mg tab TAKE 1 TABLET BY MOUTH FOUR TIMES DAILY NEEDED for dizziness - metFORMIN (GLUCOPHAGE) 500 mg tablet Take 1 tablet by mouth every 12 hours. Problem List As Of Date 02/27/2025 Noted Resolved HTN (hypertension) [I10] Diabetes (HCC) [E11.9] Encounter Status:Closed by CARLOS DONAHUE on 02/28/25 Normal [facility] CBC W Auto Differential pane l (Bld)on 02-23-2025 Basophils (Bld) [#/Vol] 0.05 10*3/uL [facility] Basophils/100 WBC (Bld) 0.5 % [facility] Differential cell count method Nom (Bld) Auto [facility] Eosinophils (Bld) [#/Vol] 0.34 10*3/uL [facility] Eosinophils/100 WBC (Bld) 3.3 % [facility] Erythrocyte distribution width (RBC) [Ratio] 14.2 % 11.5 - 15.0 % [facility] Hematocrit (Bld) [Volume fraction] 51.6 % High 39.0 - 51.0 % [facility] Hemoglobin (Bld) [Mass/Vol] 16.7 g/dL 13.0 - 17.0 g/dL [facility] Immature granulocytes (Bld) [#/Vol] 0.05 10*3/uL [facility] Immature granulocytes/100 WBC (Bld) 0.5 % [facility] Interpretation and review of laboratory results Abnormal [facility] Lymphocytes (Bld) [#/Vol] 2.9 10*3/uL [facility] Lymphocytes/100 WBC (Bld) 28.4 % [facility] MCH (RBC) [Entitic mass] 30.2 pg 26.0 - 34.0 pg [facility] MCHC (RBC) [Mass/Vol] 32.4 g/dL 30.5 - 36.0 g/dL [facility] MCV (RBC) [Entitic vol] 93.3 fL 80.0 - 100.0 fL [facility] Monocytes (Bld) [#/Vol] 0.76 10*3/uL NINF [facility] Monocytes/100 WBC (Bld) 7.4 % [facility] Neutrophils (Bld) [#/Vol] 6.11 10*3/uL [facility] Neutrophils/100 WBC (Bld) 59.9 % [facility] Nucleated RBC (Bld) [#/Vol] NINF [facility] Nucleated RBC/100 WBC (Bld) [Ratio] 0 % /100 WBC [facility] Platelet mean volume (Bld) [Entitic vol] 11.2 fL 9.0 - 12.7 fL [facility] Platelets (Bld) [#/Vol] 200 10*3/uL [facility] RBC (Bld) [#/Vol] 5.53 10*6/uL 4.20 - 6.0 0 m/uL [facility] WBC (Bld) [#/Vol] 10.21 10*3/uL [facility] Basophils (Bld) [#/Vol] 0.05 10*3/uL Normal <0.11 [facility] Comment on above: Order Comment: Speci men Type: BLOOD SPECIMEN Ordering Facility: [facility] Address: [address] [place] [address] Performed By: #### 5 7021-8 #### [facility] CLIA [id number] [address] [place] [address] [place] Performed By: #### 2 4323-8, 45427-2, 3016-3 #### [facility] CLIA [id number] [address] [place] [address] [place] Basophils/100 WBC (Bld) 0.5 % Normal [facility] Comment on above: Order Comment: Speci men Type: BLOOD SPECIMEN Ordering Facility: [facility] Address: [address] [place] [address] Performed By: #### 5 7021-8 #### [facility] CLIA [id number] [address] [place] [address] [place] Performed By: #### 2 4323-8, 03217-9, 6-3 #### [facility] CLIA [id number] [address] [id number] [place] Differential cell count method Nom (Bld) Auto Normal [facility] Comment on above: Order Comment: Speci men Type: BLOOD SPECIMEN Ordering Facility: [facility] Address: [address] [id number] Performed By: #### 5 7021-8 #### [facility] CLIA [id number] [address] [place], [place] [address] [facility] [place] Performed By: #### 2 432-8, 36474-1, 3015-3 #### [facility] CLIA [id number] [address] [place] [address] [place] Eosinophils (Bld) [#/Vol] 0.34 10*3/uL Normal <0.46 [facility] Comment on above: Order Comment: Speci men Type: BLOOD SPECIMEN Ordering Facility: [facility] Address: [address] [place] [address] Performed By: #### 5 7021-8 #### [facility] CLIA [id number] [address] [place] [address] [place] Performed By: #### 2 4323-8, 30022-7, 6-3 #### [facility] CLIA [id number] [address] [place], [place] [id number] [place] Eosinophils/100 WBC (Bld) 3.3 % Normal [facility] Comment on above: Order Comment: Speci men Type: BLOOD SPECIMEN Ordering Facility: [facility] Address: [address] [id number] Performed By: #### 5 7021-8 #### [facility] CLIA [id number] [address] [place], [place] [id number] [facility] OF [place] Performed By: #### 2 4323-8, 04613-3, 6-3 #### [facility] CLIA [id number] [address] [place] [address] [place] Erythrocyte distribution width (RBC) [Ratio] 14.2 % Normal 11.5-15.0 [facility] Comment on above: Order Comment: Speci men Type: BLOOD SPECIMEN Ordering Facility: [facility] Address: [address] [place] [address] Performed By: #### 5 7021-8 #### [facility] CLIA [id number] [address] [place], [place] [id number] [place] Performed By: #### 2 4323-8, 01537-0, 6-3 #### [facility] CLIA [id number] [address] [place], [place] [id number] [place] Hematocrit (Bld) [Volume fraction] 51.6 % High 39.0-51.0 [facility] Comment on above: Order Comment: Speci men Type: BLOOD SPECIMEN Ordering Facility: [facility] Address: [address] [place] [address] Performed By: #### 5 7021-8 #### [facility] CLIA [id number] [address] [place], [place] [address] [facility] OF [place] Performed By: #### 2 4323-8, 03394-4, 6-3 #### [facility] CLIA [id number] [address] [place] [address] [place] Hemoglobin (Bld) [Mass/Vol] 16.7 g/dL Normal 13.0-17.0 [facility] Comment on above: Order Comment: Speci men Type: BLOOD SPECIMEN Ordering Facility: [facility] Address: [address] [place], [place] [id number] Performed By: #### 5 7021-8 #### [facility] CLIA [id number] [address] Performed By: #### 2 4323-8, 49709-9, 3016-3 #### [facility] CLIA [id number] [address] [place] [address] [place] Immature granulocytes (Bld) [#/Vol] 0.05 10*3/uL Normal <0.10 [facility] Comment on above: Order Comment: Speci men Type: BLOOD SPECIMEN Ordering Facility: [facility] Address: [address] [place] [address] Performed By: #### 5 7021-8 #### [facility] CLIA [id number] [address] [place] [address] [place] Performed By: #### 2 4323-8, 25176-8, 6-3 #### [facility] [facility] CLIA [id number] [address] [place] [address] [place] Immature granulocytes/100 WBC (Bld) 0.5 % Normal [facility] Comment on above: Order Comment: Speci men Type: BLOOD SPECIMEN Ordering Facility: [facility] Address: [address] [place] [address] Performed By: #### 5 7021-8 #### [facility] CLIA [id number] [address] [place] [address] [place] Performed By: #### 2 4323-8, 44910-3, 6-3 #### [facility] CLIA [id number] [address] [place] [address] [place] Lymphocytes (Bld) [#/Vol] 2.90 10*3/uL Normal 1.00-4.00 [facility] Comment on above: Order Comment: Speci men Type: BLOOD SPECIMEN Ordering Facility: [facility] Address: [address] [place] [address] Performed By: #### 5 7021-8 #### [facility] CLIA [id number] [address] [place], [place] [address] [facility] [place] Performed By: #### 2 4323-8, 43230-3, 6-3 #### [facility] CLIA [id number] [address] [place], [place] [address] [place] Lymphocytes/100 WBC (Bld) 28.4 % Normal [facility] Comment on above: Order Comment: Speci men Type: BLOOD SPECIMEN Ordering Facility: [facility] Address: [address] [place] [address] Performed By: #### 5 7021-8 #### [facility] CLIA [id number] [address] [place] [address] [place] Performed By: #### 2 4323-8, 76286-9, 3015-3 #### [facility] CLIA [id number] [address] [place] [address] [place] MCH (RBC) [Entitic mass] 30.2 pg Normal 26.0-34.0 [facility] Comment on above: Order Comment: Speci men Type: BLOOD SPECIMEN Ordering Facility: [facility] Address: [address] [place] [address] Performed By: #### 5 7021-8 #### [facility] CLIA [id number] [address] [place] [address] [place] Performed By: #### 2 4323-8, 59862-1, 6-3 #### [facility] CLIA [id number] [address] [place] [address] [place] MCHC (RBC) [Mass/Vol] 32.4 g/dL Normal 30.5-36.0 [facility] Comment on above: Order Comment: Speci men Type: BLOOD SPECIMEN Ordering Facility: [facility] Address: [address] [place] [address] Performed By: #### 5 7021-8 #### [facility] CLIA [id number] [address] [id number] [facility] [place] Performed By: #### 2 4323-8, 21673-8, 3016-3 #### [facility] CLIA [id number] [address] [place] [address] [place] MCV (RBC) [Entitic vol] 93.3 fL Normal 80.0-100.0 [facility] Comment on above: Order Comment: Speci men Type: BLOOD SPECIMEN Ordering Facility: [facility] Address: [address] [place] [address] Performed By: #### 5 7021-8 #### [facility] CLIA [id number] [address] [place] [address] Performed By: #### 2 4323-8, 94029-6, 6-3 #### [facility] CLIA [id number] [address], [facility] [place] Monocytes (Bld) [#/Vol] 0.76 10*3/uL Normal <0.87 [facility] Comment on above: Order Comment: Speci men Type: BLOOD SPECIMEN Ordering Facility: [facility] Address: [address] [place] [address] Performed By: #### 5 7021-8 #### [facility] CLIA [id number] [address] [place], [place] [address] [facility] [place] Performed By: #### 2 4323-8, 94223-8, 6-3 #### [facility] CLIA [id number] [address] [address] [place] Monocytes/100 WBC (Bld) 7.4 % Normal [facility] Comment on above: Order Comment: Speci men Type: BLOOD SPECIMEN Ordering Facility: [facility] Address: [address] [place] [address] Performed By: #### 5 7021-8 #### [facility] CLIA [id number] [address] [place] [address] [place] Performed By: #### 2 4323-8, 92458-2, 3016-3 #### [facility] CLIA [id number] [address] [place] [address] [place] Neutrophils (Bld) [#/Vol] 6.11 10*3/uL Normal 1.45-7.50 [facility] Comment on above: Order Comment: Speci men Type: BLOOD SPECIMEN Ordering Facility: [facility] Address: [address] [place] [address] Performed By: #### 5 7021-8 #### [facility] CLIA [id number] [address] [place] [address] Performed By: #### 2 4323-8, 38396-9, 6-3 #### [facility] CLIA [id number] [address] [place] [address] [place] Neutrophils/100 WBC (Bld) 59.9 % Normal [facility] Comment on above: Order Comment: Speci men Type: BLOOD SPECIMEN Ordering Facility: [facility] Address: [address] [place] [address] Performed By: #### 5 7021-8 #### [facility] CLIA [id number] [address] [place] [address] [facility] [place] Performed By: #### 2 4323-8, 83521-3, 3016-3 #### [facility] CLIA [id number] [address] [place] [address] [place] Nucleated RBC (Bld) [#/Vol] 10*3/uL Normal <0.01 [facility] Comment on above: Order Comment: Speci men Type: BLOOD SPECIMEN Ordering Facility: [facility] Address: [address] [place] [address] Performed By: #### 5 7021-8 #### [facility] CLIA [id number] [address] [place] [address] Performed By: #### 2 4323-8, 83694-8, 6-3 #### [facility] CLIA [id number] [address] [place] [address] [place] Nucleated RBC/100 WBC (Bld) [Ratio] 0.0 /100 WBC Normal [facility] Comment on above: Order Comment: Speci men Type: BLOOD SPECIMEN Ordering Facility: [facility] Address: [address] [place] [address] Performed By: #### 5 7021-8 #### [facility] CLIA [id number] [address] [place] [address] Performed By: #### 2 4323-8, 73310-3, 6-3 #### [facility] CLIA [id number] [address] [place] [address] [place] Platelet mean volume (Bld) [Entitic vol] 11.2 fL Normal 9.0-12.7 [facility] Comment on above: Order Comment: Speci men Type: BLOOD SPECIMEN Ordering Facility: [facility] Address: [address] [place] [address] Performed By: #### 5 7021-8 #### [facility] CLIA [id number] [address] [place] [address] [place] Performed By: #### 2 4323-8, 44077-3, 6-3 #### [facility] CLIA [id number] [address] [place], [place] [address] [place] Platelets (Bld) [#/Vol] 200 10*3/uL Normal 150-400 [facility] Comment on above: Order Comment: Speci men Type: BLOOD SPECIMEN Ordering Facility: [facility] Address: [address] [place] [address] Performed By: #### 5 7021-8 #### [facility] CLIA [id number] [address] [place] [address] [place] Performed By: #### 2 4323-8, 05179-5, 3016-3 #### [facility] CLIA [id number] [address] [place] [address] [place] RBC (Bld) [#/Vol] 5.53 10*6/uL Normal 4.20-6.00 [facility] Comment on above: Order Comment: Speci men Type: BLOOD SPECIMEN Ordering Facility: [facility] Address: [address] [place] [address] Performed By: #### 5 7021-8 #### [facility] CLIA [id number] [address] [place] [address] [place] Performed By: #### 2 4323-8, 18418-3, 3016-3 #### [facility] CLIA [id number] [address] [place] [address] [place] WBC (Bld) [#/Vol] 10.21 10*3/uL Normal 3.70-11.00 [facility] Comment on above: Order Comment: Speci men Type: BLOOD SPECIMEN Ordering Facility: [facility] Address: [address] [place] [address] Performed By: #### 5 7021-8 #### [facility] CLIA [id number] [address] [place] [address] [place] Performed By: #### 2 4323-8, 34928-7, 3016-3 #### [facility] CLIA [id number] [address] [place] [address] [place] Comprehensive metabolic 2000 panelon 02-23-2025 Albumin [Mass/Vol] 4.3 g/dL 3.9 - 4.9 g/dL [facility] ALP [Catalytic activity/Vol] 76 U/L 38 - 113 U/L [facility] ALT [Catalytic activity/Vol] 32 U/L 10 - 54 U/L [facility] Anion gap [Moles/Vol] 10 mmol/L 8 - 15 mmol/L [facility] AST [Catalytic activity/Vol] 21 U/L 14 - 40 U/L [facility] Bilirubin [Mass/Vol] 0.3 mg/dL 0.2 - 1 .3 mg/dL [facility] Calcium [Mass/Vol] 9.9 mg/dL 8.5 - 10. 2 mg/dL [facility] Chloride [Moles/Vol] 102 mmol/L 98 - 10 7 mmol/L [facility] CO2 [Moles/Vol] 31 mmol/L High 22 - 30 mmol/L [facility] Creatinine [Mass/Vol] 0.85 mg/dL 0.73 - 1.22 mg/dL [facility] GFR/1.73 sq M.predicted among non-blacks MDRD (S/P/Bld) [Vol rate/Area] 105 mL/min/{1.73_m2} - PINF [facility] Comment on above: Estimated Glomerular Filtration Rate (eGFR) is calculated using the 2020 CKD-EPI creatinine equation. This equation utilizes serum creatinine, sex, and age as parameters. The creatinine assay has traceable calibration to isotope dilution-mass spectrometry. Refer to KDIGO guidelines for clinical interpretation. In patients with unstable renal function, e.g. those with acute kidney injury, the eGFR may not accurately reflect actual GFR. Glucose [Mass/Vol] 171 mg/dL High 74 - 99 mg/dL [facility] Comment on above: The [place] [employer] (ADA) provides guidance for cutoff values for fasting glucose and random glucose. The ADA defines fasting as no caloric intake for at least 8 hours. Fasting plasma glucose results between 100 to 125 mg/dL indicate increased risk for diabetes (prediabetes). Fasting plasma glucose results greater than or equal to 126 mg/dL meet the criteria for diagnosis of diabetes. In the absence of unequivocal hyperglycemia, results should be confirmed by repeat testing. In a patient with classic symptoms of hyperglycemia or hyperglycemic crisis, random plasma glucose results greater than or equal to 200 mg/dL meet the criteria for diagnosis of diabetes. Reference: Standards of Medical Care in Diabetes 2016, [place] [employer]. Diabetes Care. 2016.39(Suppl 1). Potassium [Moles/Vol] 4.6 mmol/L 3.7 - 5.1 mmol/L [facility] Protein [Mass/Vol] 7.2 g/dL 6.3 - 8.0 g/dL [facility] Sodium [Moles/Vol] 143 mmol/L 136 - 144 mmol/L [facility] Urea nitrogen [Mass/Vol] 14 mg/dL 9 - 24 mg/dL [facility] Albumin [Mass/Vol] 4.3 g/dL Normal 3.9-4.9 [facility] Comment on above: Order Comment: Patrick sidhu Type: BLOOD SPECIMEN Ordering Facility: [facility] Address: [address] [place] [address] Performed By: #### 3 016-3, 24399-4, 61241-6 #### [facility] CLIA [id number] [address] [place] [address] [place] Performed By: #### 2 4323-8, 95126-3, 3016-3 #### [facility] CLIA [id number] [address] [place] [address] [place] ALP [Catalytic activity/Vol] 76 U/L Normal 38-113 [facility] Comment on above: Order Comment: Patrick sidhu Type: BLOOD SPECIMEN Ordering Facility: [facility] Address: [address] [place] [address] Performed By: #### 3 016-3, 52718-0, 57308-2 #### [facility] CLIA [id number] [address] [place] [address] [place] Performed By: #### 2 4323-8, 99564-0, 3016-3 #### [facility] CLIA [id number] [address] [place], [place] [address] [place] ALT [Catalytic activity/Vol] 32 U/L Normal 10-54 [facility] Comment on above: Order Comment: Speci men Type: BLOOD SPECIMEN Ordering Facility: [facility] Address: [address] [place] [address] Performed By: #### 3 016-3, 24547-7, 57750-5 #### [facility] CLIA [id number] [address] [place] [address] [place] Performed By: #### 2 4323-8, 48851-2, 3016-3 #### [facility] CLIA [id number] [address] [place] [address] [place] Anion gap [Moles/Vol] 10 mmol/L Normal 8-15 [facility] Comment on above: Order Comment: Speci men Type: BLOOD SPECIMEN Ordering Facility: [facility] Address: [address] [place] [address] Performed By: #### 3 016-3, 61376-9, 76914-8 #### [facility] CLIA [id number] [address] [place] [address] [place] Performed By: #### 2 4323-8, 41486-0, 3016-3 #### [facility] CLIA [id number] [address] [place] [address] [place] AST [Catalytic activity/Vol] 21 U/L Normal 14-40 [facility] Comment on above: Order Comment: Speci men Type: BLOOD SPECIMEN Ordering Facility: [facility] Address: [address] [place] [address] Performed By: #### 3 016-3, 42716-3, 69987-0 #### [facility] CLIA [id number] [address] [place] [address] [place] Performed By: #### 2 4323-8, 84011-4, 3016-3 #### [facility] CLIA [id number] [address] [id number] [place] Bilirubin [Mass/Vol] 0.3 mg/dL Normal 0.2-1.3 [facility] Comment on above: Order Comment: Speci men Type: BLOOD SPECIMEN Ordering Facility: [facility] Address: [address] [id number] Performed By: #### 3 016-3, 48882-2, 92726-1 #### [facility] CLIA [id number] [address] [place] [address] [place] Performed By: #### 2 3-8, 07256-1, 3015-3 #### [facility] CLIA [id number] [address] [place] [address] [place] Calcium [Mass/Vol] 9.9 mg/dL Normal 8.5-10.2 [facility] Comment on above: Order Comment: Speci men Type: BLOOD SPECIMEN Ordering Facility: [facility] Address: [address] [id number] Performed By: #### 3 016-3, , 77895-1 #### [facility] CLIA [id number] [address] [place] [address] [place] Performed By: #### 2 4323-8, 20956-2, 3015-3 #### [facility] CLIA [id number] [address] [place], [place] [address] [place] Chloride [Moles/Vol] 102 mmol/L Normal 98-107 [facility] Comment on above: Order Comment: Speci men Type: BLOOD SPECIMEN Ordering Facility: [facility] Address: [address] [id number] Performed By: #### 3 016-3, 88064-7, 89386-1 #### [facility] CLIA [id number] [address] [place] [address] Performed By: #### 2 4323-8, 50376-4, 3016-3 #### [facility] CLIA [id number] [address] [place] [address] [place] CO2 [Moles/Vol] 31 mmol/L High 22-30 [facility] Comment on above: Order Comment: Speci men Type: BLOOD SPECIMEN Ordering Facility: [facility] Address: [address] [place] [address] Performed By: #### 3 016-3, 62667-6, 25703-7 #### [facility] CLIA [id number] [address] [place] [address] Performed By: #### 2 4323-8, 58052-3, 6-3 #### [facility] CLIA [id number] [address] [place] [address] [place] Creatinine [Mass/Vol] 0.85 mg/dL Normal 0.73-1.22 [facility] Comment on above: Order Comment: Speci men Type: BLOOD SPECIMEN Ordering Facility: [facility] Address: [address] [place] [address] Performed By: #### 3 016-3, 89299-9, 89409-9 #### [facility] CLIA [id number] [address] [place] [address] Performed By: #### 2 4323-8, 81515-7, 3016-3 #### [facility] CLIA [id number] [address] [place] [address] [place] Creatinine and Glomerular filtration rate.predicted panel (S/P/Bld) 105 mL/min/1.73m??? Normal >=60 [facility] Comment on above: Order Comment: Speci men Type: BLOOD SPECIMEN Ordering Facility: [facility] Address: [address] [place] [address] Result Comment: Capri mated Glomerular Filtration Rate (eGFR) is calculated using the 2020 CKD-EPI creatinine equation. This equation utilizes serum creatinine, sex, and age as parameters. The creatinine assay has traceable calibration to isotope dilution-mass spectrometry. Refer to KDIGO guidelines for clinical interpretation. In patients with unstable renal function, e.g. those with acute kidney injury, the eGFR may not accurately reflect actual GFR. Performed By: #### 3 016-3, 98833-2, 99908-0 #### [facility] CLIA [id number] [address] [place] [address] Performed By: #### 2 4323-8, 96088-8, 3015-3 #### [facility] CLIA [id number] [address] [place] [address] [place] Glucose [Mass/Vol] 171 mg/dL High 74-99 [facility] Comment on above: Order Comment: Speci men Type: BLOOD SPECIMEN Ordering Facility: [facility] Address: [address] [place] [address] Result Comment: The [place] [employer] (ADA) provides guidance for cutoff values for fasting glucose and random glucose. The ADA defines fasting as no caloric intake for at least 8 hours. Fasting plasma glucose results between 100 to 125 mg/dL indicate increased risk for diabetes (prediabetes). Fasting plasma glucose results greater than or equal to 126 mg/dL meet the criteria for diagnosis of diabetes. In the absence of unequivocal hyperglycemia, results should be confirmed by repeat testing. In a patient with classic symptoms of hyperglycemia or hyperglycemic crisis, random plasma glucose results greater than or equal to 200 mg/dL meet the criteria for diagnosis of diabetes. Reference: Standards of Medical Care in Diabetes 2016, [place] [employer]. Diabetes Care. 2016.39(Suppl 1). Performed By: #### 3 016-3, 23449-0, 06788-3 #### [facility] CLIA [id number] [address] [place], [place] [address] [place] Performed By: #### 2 4323-8, 17185-1, 3016-3 #### [facility] CLIA [id number] [address] [place], [place] [address] [place] Potassium [Moles/Vol] 4.6 mmol/L Normal 3.7-5.1 [facility] Comment on above: Order Comment: Speci men Type: BLOOD SPECIMEN Ordering Facility: [facility] Address: [address] [place] [address] Performed By: #### 3 016-3, , 51007-5 #### [facility] CLIA [id number] [address] [place] [address] [place] Performed By: #### 2 4322-8, 83431-4, 3015-3 #### [facility] CLIA [id number] [address] [place] [address] [place] Protein [Mass/Vol] 7.2 g/dL Normal 6.3-8.0 [facility] Comment on above: Order Comment: Speci men Type: BLOOD SPECIMEN Ordering Facility: [facility] Address: [address] [place] [address] Performed By: #### 3 016-3, , #### [facility] CLIA [id number] [address] [place], [place] [address] [place] Performed By: #### 2 3-8, 39605-2, 3015-3 #### [facility] CLIA [id number] [address] [place], [place] [address] [place] Sodium [Moles/Vol] 143 mmol/L Normal 136-144 [facility] Comment on above: Order Comment: Speci men Type: BLOOD SPECIMEN Ordering Facility: [facility] Address: [address] [place], [place] [address] Performed By: #### 3 016-3, 48800-8, 21275-8 #### [facility] CLIA [id number] [address] [place], [place] [address] [facility] [place] Performed By: #### 2 4323-8, 33222-0, 3016-3 #### [facility] CLIA [id number] [address] [place] [address] [place] Urea nitrogen [Mass/Vol] 14 mg/dL Normal 9-24 [facility] Comment on above: Order Comment: Speci men Type: BLOOD SPECIMEN Ordering Facility: [facility] Address: [address] [place] [address] Performed By: #### 3 016-3, 08747-0, 54189-0 #### [facility] CLIA [id number] [address] [place] [address] Performed By: #### 2 4323-8, 68292-2, 3016-3 #### [facility] [place] [id number] [address] [place] [address] [place] HbA1c (Bld)on 02-23-2025 Average glucose Estimated from glycated hemoglobin (Bld) [Mass/Vol] 186 mg/dL [facility] Comment on above: eAG: (Estimated aver age glucose) is a calculated value from HgbA1c and is energy conservation representative of the average blood glucose level in the last 2-3 month period. HbA1c (Bld) [Mass fraction] 8.1 % High 4.3 - 5.6 % [facility] Comment on above: [place] [employer] sociation guidelines indicate that patients with HgbA1c in the range 5.7-6.4% are at increased risk for development of diabetes, and intervention by lifestyle modification may be beneficial. HgbA1c greater or equal to 6.5% is considered diagnostic of diabetes. Interpretation and review of laboratory results Abnormal [facility] Average glucose Estimated from glycated hemoglobin (Bld) [Mass/Vol] 186 mg/dL Normal [facility] Comment on above: Order Comment: Speci men Type: BLOOD SPECIMEN Ordering Facility: [facility] Address: [address] [place] [address] Result Comment: eAG: (Estimated average glucose) is a calculated value from HgbA1c and is energy conservation representative of the average blood glucose level in the last 2-3 month period. Performed By: #### 5 5454-3 #### [facility] CLIA [id number] [address] [place] [address] Performed By: #### 2 4323-8, 85527-7, 3016-3 #### [facility] CLIA [id number] [address] [place] [address] [place] HbA1c (Bld) [Mass fraction] 8.1 % High 4.3-5.6 [facility] Comment on above: Order Comment: Speci men Type: BLOOD SPECIMEN Ordering Facility: [facility] Address: [address] [place] [address] Result Comment: Amer [place] Diabetes Association guidelines indicate that patients with HgbA1c in the range 5.7-6.4% are at increased risk for development of diabetes, and intervention by lifestyle modification may be beneficial. HgbA1c greater or equal to 6.5% is considered diagnostic of diabetes. Performed By: #### 5 5454-3 #### [facility] CLIA [id number] [address] [place] [address] [place] Performed By: #### 2 4323-8, 36289-2, 3016-3 #### [facility] CLIA [id number] [address] [place] [address] [place] Lipid 1996 panelon 5 Cholesterol [Mass/Vol] 241 mg/dL High NINF - 200 mg/dL [facility] Comment on above: <200 mg/dL, Desirabl e 200-239 mg/dL, Borderline high >239 mg/dL, High Cholesterol in HDL [Mass/Vol] 37 mg/dL Low 39 - PINF mg/dL [facility] Comment on above: 40-59 mg/dL, Accepta ble >59 mg/dL, High: Negative risk factor for coronary heart disease <40 mg/dL, Low: Positive risk factor for coronary heart disease Cholesterol in LDL [Mass/Vol] 171 mg/dL High NINF - 100 mg/dL [facility] Comment on above: <100 mg/dL, Optimal 100-129 mg/dL, Near optimal/above optimal 130-159 mg/dL, Borderline high 160-189 mg/dL, High >189 mg/dL, Very high Secondary prevention optimal LDL Cholesterol levels are recommended to be < 70 mg/dL Cholesterol in LDL/Cholesterol in HDL [Mass ratio] 4.62 {ratio} High NINF - 2.54 [facility] Comment on above: Reference: 1. National Cholesterol Education Program ATP III Guideline At-A-Glance Quick Desk Reference: National Heart, Lung, and Blood [place]. National Institutes of Health. 2001: NIH Publication No. 01-3305. 2. An International Atherosclerosis Society position paper: global recommendations for the management of dyslipidemia: executive summary, Atherosclerosis. 2014: 232(2):410-413. Cholesterol in VLDL [Mass/Vol] 33 mg/dL High NINF - 30 mg/dL [facility] Cholesterol non HDL [Mass/Vol] 204 mg/dL High NINF - 130 mg/dL [facility] Comment on above: <130 mg/dL, Optimal 130-159 mg/dL, Near optimal/above optimal 160-189 mg/dL, Borderline high 190-219 mg/dL, High >219 mg/dL, Very high Secondary prevention optimal non HDL Cholesterol levels are recommended to be <100 mg/dL Cholesterol.total/Chol esterol in HDL [Mass ratio] 6.51 {ratio} High NINF - 5.10 [facility] Fasting Time 12 hrs [facility] Triglyceride [Mass/Vol] 165 mg/dL High NINF - 150 mg/dL [facility] Comment on above: <150 mg/dL, Normal 150-199 mg/dL, Borderline high 200-499 mg/dL, High >499 mg/dL, Very high Cholesterol [Mass/Vol] 241 mg/dL High <200 Cl [facility] Comment on above: Order Comment: Speci men Type: BLOOD SPECIMEN Ordering Facility: [facility] Address: [address] [place] [address] Result Comment: <200 mg/dL, Desirable 200-239 mg/dL, Borderline high >239 mg/dL, High Performed By: #### 3 016-3, 87059-3, 17459-9 #### [facility] CLIA [id number] [address] [facility] [address] [address] [facility] OF [place] Performed By: #### 2 4323-8, 47110-2, 3016-3 #### [facility] CLIA [id number] [facility] [facility] [address] [place] [address] [place] Cholesterol in HDL [Mass/Vol] 37 mg/dL Low >39 [facility] Comment on above: Order Comment: Speci men Type: BLOOD SPECIMEN Ordering Facility: [facility] Address: [address] [place] [address] Result Comment: 40-5 9 mg/dL, Acceptable >59 mg/dL, High: Negative risk factor for coronary heart disease <40 mg/dL, Low: Positive risk factor for coronary heart disease Performed By: #### 3 016-3, 48510-0, 00350-0 #### [facility] CLIA [id number] [address] [place] [address], [facility] Performed By: #### 2 4323-8, 17350-2, 3016-3 #### [facility] CLIA [id number] [address] [place] [address], [facility] [place] Cholesterol in LDL [Mass/Vol] 171 mg/dL High <100 [facility] Comment on above: Order Comment: Speci men Type: BLOOD SPECIMEN Ordering Facility: [facility] Address: [address] [place], [place] [address] Result Comment: <100 mg/dL, Optimal 100-129 mg/dL, Near optimal/above optimal 130-159 mg/dL, Borderline high 160-189 mg/dL, High >189 mg/dL, Very high Secondary prevention optimal LDL Cholesterol levels are recommended to be < 70 mg/dL Performed By: #### 3 016-3, 88176-2, 37782-2 #### [facility] CLIA [id number] [address] [facility] [id number] Performed By: #### 2 4323-8, 50215-6, 3016-3 #### [facility] CLIA [id number] [facility] STATES OF [facility] Cholesterol in LDL/Cholesterol in HDL [Mass ratio] 4.62 {ratio} High <2.54 [facility] Comment on above: Order Comment: Speci men Type: BLOOD SPECIMEN Ordering Facility: [facility] Address: [address] [place] [address] Result Comment: Refe rence: 1. National Cholesterol Education Program ATP III Guideline At-A-Glance Quick Desk Reference: National Heart, Lung, and Blood [place]. National Institutes of Health. 2001: NIH Publication No. 01-3305. 2. An International Atherosclerosis Society position paper: global recommendations for the management of dyslipidemia: executive summary, Atherosclerosis. 2014: 232(2):410-413. Performed By: #### 3 016-3, 35731-3, 43782-7 #### [facility] CLIA [id number] [address] [place] [address] Performed By: #### 2 4323-8, 19504-2, 3016-3 #### [facility] CLIA [id number] [address] [place] [address] [place] Cholesterol in VLDL [Mass/Vol] 33 mg/dL High <30 [facility] Comment on above: Order Comment: Speci men Type: BLOOD SPECIMEN Ordering Facility: [facility] Address: [address] [place] [address] Performed By: #### 3 016-3, 63558-0, 23433-0 #### [facility] CLIA [id number] [address] [place] [address] [place] Performed By: #### 2 4323-8, 32451-4, 3016-3 #### [facility] CLIA [id number] [address] [place], [place] [address] [place] Cholesterol non HDL [Mass/Vol] 204 mg/dL High <130 [facility] Comment on above: Order Comment: Speci men Type: BLOOD SPECIMEN Ordering Facility: [facility] Address: [address] [place] [address] Result Comment: <130 mg/dL, Optimal 130-159 mg/dL, Near optimal/above optimal 160-189 mg/dL, Borderline high 190-219 mg/dL, High >219 mg/dL, Very high Secondary prevention optimal non HDL Cholesterol levels are recommended to be <100 mg/dL Performed By: #### 3 016-3, 92107-0, 48801-0 #### [facility] CLIA [id number] [address] [place] [address] Performed By: #### 2 4323-8, 53114-0, 3016-3 #### [facility] CLIA [id number] [address] [place] [address] [place] Cholesterol.total/Chol esterol in HDL [Mass ratio] 6.51 {ratio} High <5.10 [facility] Comment on above: Order Comment: Speci men Type: BLOOD SPECIMEN Ordering Facility: [facility] Address: [address] [place] [address] Performed By: #### 3 016-3, 65508-8, 42778-9 #### [facility] CLIA [id number] [address] [place] [address] Performed By: #### 2 4323-8, 01509-8, 3016-3 #### [facility] CLIA [id number] [address] [place] [address] [place] FASTING TIME 12 hrs Normal [facility] Comment on above: Order Comment: Speci men Type: BLOOD SPECIMEN Ordering Facility: [facility] Address: [address] [place] [address] Performed By: #### 3 016-3, 34942-8, 55709-9 #### [facility] CLIA [id number] [address] [place] [address] [facility] [place] Performed By: #### 2 4323-8, 67553-3, 3016-3 #### [facility] CLIA [id number] [address] [place] [address] [place] Triglyceride [Mass/Vol] 165 mg/dL High <150 [facility] Comment on above: Order Comment: Speci men Type: BLOOD SPECIMEN Ordering Facility: [facility] Address: [address] [place] [address] Result Comment: <150 mg/dL, Normal 150-199 mg/dL, Borderline high 200-499 mg/dL, High >499 mg/dL, Very high Performed By: #### 3 016-3, 46927-5, 96537-6 #### [facility] CLIA [id number] [address] [place] [address] [place] Performed By: #### 2 4323-8, 35049-4, 3016-3 #### [facility] CLIA [id number] [address] [place], [place] [address] [place] No Panel Informationon 02-23 Interpretation and review of laboratory results Abnormal [facility] PSA/PROSTATE SPECIFIC ANTIGE N SCREENINGon 02-23-2025 Interpretation and review of laboratory results Normal [facility] Prostate specific Ag [Mass/Vol] 1.48 ng/mL NINF - 2.60 ng/mL [facility] Comment on above: Total PSA test metho dology used is the Electrochemiluminescence Immunoassay by [employer]. Total PSA values by differing methodologies cannot be interchanged. [facility] Prostate specific Ag [Mass/Vol] 1.48 ng/mL Normal <2.60 [facility] Comment on above: Order Comment: Speci men Type: BLOOD SPECIMEN Ordering Facility: [facility] Address: [address] [place] [address] Result Comment: Tota l PSA test methodology used is the Electrochemiluminescence Immunoassay by [employer]. Total PSA values by differing methodologies cannot be interchanged. Performed By: #### P SAS1 #### [facility] CLIA [id number] [address] [place] [address] [place] THYROID STIMULATING HORMONEo n 02-23-2025 TSH Qn 4.94 m[IU]/L High [facility] TSH Qnon 02-23-2025 Interpretation and review of laboratory results Abnormal [facility] TSH SerPl-aCncon 02-23-2025 TSH Qn 4.940 m[IU]/L High 0.270-4.200 [facility] Comment on above: Order Comment: Speci men Type: BLOOD SPECIMEN Ordering Facility: [facility] Address: [address] [place] [address] Performed By: #### 3 016-3, 48189-1, 93517-0 #### [facility] CLIA [id number] [address] [place] [address] [place] Performed By: #### 2 4323-8, 98591-3, 3016-3 #### [facility] CLIA [id number] [address] [place] [address] [place] Urinalysis complete panel (U )on 02-23-2025 Bacteria LM.HPF (Urine sed) [#/Area] Negative Negative /HPF [facility] Bilirubin Ql (U) Negative Negative [facility] Clarity (Unsp spec) Clear Clear [facility] Color (U) Yellow Yellow [facility] Epithelial cells LM.HPF (Urine sed) [#/Area] None Seen /HPF [facility] Glucose Test strip (U) [Mass/Vol] Negative Negative [facility] Hemoglobin Ql (U) Negative Negative [facility] Hyaline casts (Urine sed) [#/Area] 0 /[LPF] 0 /LPF [facility] Interpretation and review of laboratory results Abnormal [facility] Ketones Ql (U) Negative Negative [facility] Leukocyte esterase Test strip Ql (U) Negative Negative [facility] Nitrite Ql (U) Negative Negative [facility] pH (U) 6 [pH] NINF - 8.5 [facility] Protein (U) [Mass/Vol] Trace Abnormal Negative [facility] RBC LM.HPF (Urine sed) [#/Area] 0-2 /HPF 0-2 /HPF [facility] Specific gravity (U) [Rel density] 1.022 1.005 - 1.030 [facility] Urobilinogen Ql (U) 0.2 EU/dL 0.2-1.0 EU/dL [facility] WBC LM.HPF (Urine sed) [#/Area] 0-5 /HPF 0-5 /HPF [facility] This test was develo ped and its performance characteristics determined by [facility]'s [facility] Pathology and Laboratory Medicine [employer] ([facility]PL[facility]). It has not been cleared or approved by the FDA. -[facility] is regulated under CLIA as qualified to perform high-complexity testing. This test is used for clinical purposes. It should not be regarded as investigational or for research. [facility] Bacteria LM.HPF (Urine sed) [#/Area] Negative Normal Negative [facility] Comment on above: Order Comment: Speci men Type: URINE SPECIMEN Ordering Facility: [facility] Address: [address] [place] [address] Performed By: #### 2 4356-8 #### [facility] CLIA [id number] [address] [place] [address] [place] Order Comment: Speci men Type: BLOOD SPECIMEN Ordering Facility: [facility] Address: [address] [place] [address] Performed By: #### 2 4323-8, 18344-1, 3016-3 #### [facility] CLIA [id number] [address] [place] [address] [place] Bilirubin Ql (U) Negative Normal Negative [facility] Comment on above: Order Comment: Speci men Type: URINE SPECIMEN Ordering Facility: [facility] Address: [address] [place] [address] Performed By: #### 2 4356-8 #### [facility] CLIA [id number] [address] [place] [address] [place] Order Comment: Speci men Type: BLOOD SPECIMEN Ordering Facility: [facility] Address: [address] [place] [id number] Performed By: #### 2 4323-8, 10975-5, 3016-3 #### [facility] CLIA [id number] [address] [address] [place] Clarity (Unsp spec) Clear Normal Clear [facility] Comment on above: Order Comment: Speci men Type: URINE SPECIMEN Ordering Facility: [facility] Address: [address] [place] [id number] Performed By: #### 2 4356-8 #### [facility] CLIA [id number] [address] [place] [id number] [place] Order Comment: Speci men Type: BLOOD SPECIMEN Ordering Facility: [facility] Address: [address] [place] [address] Performed By: #### 2 4323-8, 04971-6, 3016-3 #### [facility] CLIA [id number] [address] [place] [id number] [place] Color (U) Yellow Normal Yellow [facility] Comment on above: Order Comment: Speci men Type: URINE SPECIMEN Ordering Facility: [facility] Address: [address] [place] [id number] Performed By: #### 2 4356-8 #### [facility] CLIA [id number] [address] [place] [address] [place] Order Comment: Speci men Type: BLOOD SPECIMEN Ordering Facility: [facility] Address: [address] [place] [id number] Performed By: #### 2 4323-8, 02732-8, 3016-3 #### [facility] CLIA [id number] [address] [place] [id number] [place] Epithelial cells LM.HPF (Urine sed) [#/Area] None Seen Normal [facility] Comment on above: Order Comment: Speci men Type: URINE SPECIMEN Ordering Facility: [facility] Address: [address] [place] [address] Performed By: #### 2 4356-8 #### [facility] CLIA [id number] [address] [place] [address] [facility] [place] Order Comment: Speci men Type: BLOOD SPECIMEN Ordering Facility: [facility] Address: [address] [place] [address] Performed By: #### 2 4323-8, 09874-4, 3016-3 #### [facility] CLIA [id number] [address] [place], [place] [address] [place] Glucose Test strip (U) [Mass/Vol] Negative Normal Negative [facility] Comment on above: Order Comment: Speci men Type: URINE SPECIMEN Ordering Facility: [facility] Address: [address] [place] [address] Performed By: #### 2 4356-8 #### [facility] CLIA [id number] [address] [place], [place] [address] [place] Order Comment: Speci men Type: BLOOD SPECIMEN Ordering Facility: [facility] Address: [address] [place], [place] [address] Performed By: #### 2 4323-8, 71405-2, 3016-3 #### [facility] CLIA [id number] [address] [place] [address], [place] [address] [place] Hemoglobin Ql (U) Negative Normal Negative [facility] Comment on above: Order Comment: Speci men Type: URINE SPECIMEN Ordering Facility: [facility] Address: [address] [place], [place] [address] Performed By: #### 2 4356-8 #### [facility] CLIA [id number] [address] [place] [address] [place] Order Comment: Speci men Type: BLOOD SPECIMEN Ordering Facility: [facility] Address: [address] [place] [id number] Performed By: #### 2 4323-8, 83046-1, 3015-3 #### [facility] CLIA [id number] [address] [address] [place] Hyaline casts (Urine sed) [#/Area] 0 /[LPF] Normal 0 /LPF [facility] Comment on above: Order Comment: Speci men Type: URINE SPECIMEN Ordering Facility: [facility] Address: [address] [place] [address] Performed By: #### 2 4356-8 #### [facility] CLIA [id number] [address] [place], [place] [address] [facility] [place] Order Comment: Speci men Type: BLOOD SPECIMEN Ordering Facility: [facility] Address: [address] [place] [address] Performed By: #### 2 4323-8, 67288-1, 3015-3 #### [facility] CLIA [id number] [address] [place] [id number] [place] Ketones Ql (U) Negative Normal Negative [facility] Comment on above: Order Comment: Speci men Type: URINE SPECIMEN Ordering Facility: [facility] Address: [address] [place] [phone] Performed By: #### 2 4356-8 #### [facility] CLIA [id number] [address] [place] [id number] [place] Order Comment: Speci men Type: BLOOD SPECIMEN Ordering Facility: [facility] Address: [address] [place] [phone] Performed By: #### 2 4323-8, 77009-2, 3015-3 #### [facility] CLIA [id number] [address] [address] [place] Leukocyte esterase Test strip Ql (U) Negative Normal Negative [facility] Comment on above: Order Comment: Speci men Type: URINE SPECIMEN Ordering Facility: [facility] Address: [address] [place] [address] Performed By: #### 2 4356-8 #### [facility] CLIA [id number] [address] [place] [phone] [place] Order Comment: Speci men Type: BLOOD SPECIMEN Ordering Facility: [facility] Address: [address] [place] [address] Performed By: #### 2 4323-8, 66589-1, 3016-3 #### [facility] CLIA [id number] [address] [place] [address] [place] Nitrite Ql (U) Negative Normal Negative [facility] Comment on above: Order Comment: Speci men Type: URINE SPECIMEN Ordering Facility: [facility] Address: [address] [place] [address] Performed By: #### 2 4356-8 #### [facility] CLIA [id number] [address] [place] [address] [place] Order Comment: Speci men Type: BLOOD SPECIMEN Ordering Facility: [facility] Address: [address] [place] [address] Performed By: #### 2 4323-8, 90823-6, 3016-3 #### [facility] CLIA [id number] [address] [place], [place] [address] [place] pH (U) 6.0 [pH] Normal <8.5 [facility] Comment on above: Order Comment: Speci men Type: URINE SPECIMEN Ordering Facility: [facility] Address: [address] [place] [address] Performed By: #### 2 4356-8 #### [facility] CLIA [id number] [address] [place], [place] [address] [place] Order Comment: Speci men Type: BLOOD SPECIMEN Ordering Facility: [facility] Address: [address] [place] [phone] Performed By: #### 2 4323-8, 14790-6, 3015-3 #### [facility] CLIA [id number] [address] [place] [address] [place] Protein (U) [Mass/Vol] Trace Abnormal Negative [facility] Comment on above: Order Comment: Speci men Type: URINE SPECIMEN Ordering Facility: [facility] Address: [address] [place] [address] Performed By: #### 2 4356-8 #### [facility] CLIA [id number] [address] [place], [place] [address] [place] Order Comment: Speci men Type: BLOOD SPECIMEN Ordering Facility: [facility] Address: [address] [place] [address] Performed By: #### 2 4323-8, 13379-6, 3 #### [facility] CLIA [id number] [address] [place] [address] [place] RBC LM.HPF (Urine sed) [#/Area] 0-2 /HPF Normal 0-2 /HPF [facility] Comment on above: Order Comment: Speci men Type: URINE SPECIMEN Ordering Facility: [facility] Address: [address] [place] [address] Performed By: #### 2 4356-8 #### [facility] CLIA [id number] [address] [place] [address] [place] [address] [place] Order Comment: Speci men Type: BLOOD SPECIMEN Ordering Facility: [facility] Address: [address] [place], [place] [address] Performed By: #### 2 4323-8, 14668-9, 3015-3 #### [facility] CLIA [id number] [address] [place] [address] [place] Specific gravity (U) [Rel density] 1.022 Normal 1.005-1.030 [facility] Comment on above: Order Comment: Speci men Type: URINE SPECIMEN Ordering Facility: [facility] Address: [address] [place] [address] Performed By: #### 2 4356-8 #### [facility] [facility] CLIA [id number] [address] [place] [address] OF [place] Order Comment: Speci men Type: BLOOD SPECIMEN Ordering Facility: [facility] Address: [address] [place] [address] Performed By: #### 2 4323-8, 58902-3, 3016-3 #### [facility] CLIA [id number] [address] [place] [address] [place] Urobilinogen Ql (U) 0.2 EU/dL Normal 0.2-1.0 EU/dL [facility] Comment on above: Order Comment: Speci men Type: URINE SPECIMEN Ordering Facility: [facility] Address: [address] [place] [address] Performed By: #### 2 4356-8 #### [facility] CLIA [id number] [address] [place] [address] [place] Order Comment: Speci men Type: BLOOD SPECIMEN Ordering Facility: [facility] Address: [address] [place] [address] Performed By: #### 2 4323-8, 39180-3, 3016-3 #### [facility] CLIA [id number] [address] [place] [address] [place] WBC LM.HPF (Urine sed) [#/Area] 0-5 /HPF Normal 0-5 /HPF [facility] Comment on above: Order Comment: Speci men Type: URINE SPECIMEN Ordering Facility: [facility] Address: [address] [place] [address] Performed By: #### 2 4356-8 #### [facility] CLIA [id number] [address] [place] [address] Order Comment: Speci men Type: BLOOD SPECIMEN Ordering Facility: [facility] Address: [facility] [place] [address] Performed By: #### 2 4323-8, 82756-3, 3016-3 #### [facility] CLIA [id number] [address] [place] [address] CNOVon 02-22-2025 CNOV Office Visit ([facility]PD[facility] ) -- PETERJAI ([id number]) 1970 Date Time Provider Department 02/22/25 8:00 AM RYLAN MILLER [facility]PDOYL During your visit today, we recorded the following information about you: Temperature Pulse Blood pressure Weight 98.7 degrees 75/minute 140/100 144.2 kg Height 1.829 m Rylan Miller DO 03/06/2025 5:45 PM Signed [facility] [place] Rylan Miller DO [address] [place] [address] Date of Evaluation: 02/22/2025 Patient Name: Jai Green : 1970 Chief Complaint: Patient presents with: Follow Up: Express care on 02/18/25. Swelling Establish Care: Recently had blood work at [facility] New Patient Swelling: Under chin. States swelling goes down with antibiotic Hypertension Diabetes: Recently diagnosed 2 months ago. Was on Ozempic. Last took 2 weeks ago. Was on 0.25mg discuss tylenol and ibuprofen leg swelling Sleep Apnea: Wants testing Subjective Mr. Green is a 54 year old male who presents with the following complaint(s): The history is provided by the patient. No forestry contractor was used. Hypertension This is a chronic problem. The current episode started more than 1 year ago. The problem is uncontrolled. Associated symptoms include shortness of breath. Pertinent negatives include no chest pain, headaches or palpitations. Diabetes He presents for his follow-up diabetic visit. He has type 2 diabetes mellitus. Hypoglycemia symptoms include dizziness. Pertinent negatives for hypoglycemia include no headaches or nervousness/anxiousness. Pertinent negatives for diabetes include no chest pain, no fatigue and no weakness. Risk factors for coronary artery disease include hypertension, male sex, obesity, diabetes mellitus and sedentary lifestyle. Current diabetic treatment includes oral agent (monotherapy). Shortness of Breath This is a recurrent problem. The problem occurs intermittently. Pertinent negatives include no chest pain, headaches or leg swelling. Review of Systems Constitutional: Negative for fatigue and unexpected weight change. HENT: Negative for nosebleeds. Eyes: Negative for redness and visual disturbance. Respiratory: Positive for apnea (snoring and has been told he stops breathing) and shortness of breath. Negative for cough. Cardiovascular: Negative for chest pain, palpitations and leg swelling. Genitourinary: Negative for hematuria. Neurological: Positive for dizziness. Negative for weakness, light-headedness, numbness and headaches. Hematological: Does not bruise/bleed easily. Psychiatric/Behavioral: The patient is not nervous/anxious. 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 FAMILY HISTORY Problem Relation Age of Onset Hypertension Mother Diabetes Mother Stroke Mother No Known Problems Father No Known Problems Sister No Known Problems Sister No Known Problems Brother Hypertension Maternal Grandmother Diabetes Maternal Grandmother No Known Problems Maternal Grandfather No Known Problems Paternal Grandmother No Known Problems Paternal Grandfather Social History Tobacco Use Smoking status: Former Types: Cigarettes Smokeless tobacco: Never Vaping Use Vaping status: Never Used Substance Use Topics 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 losartan-hydroCHLOROthiazi de (HYZAAR) 100-25 mg per tablet Take 1 tablet by mouth once daily. meclizine (ANTIVERT) 25 mg tab TAKE 1 TABLET BY MOUTH FOUR TIMES DAILY NEEDED for dizziness metFORMIN (GLUCOPHAGE) 500 mg tablet Take 1 tablet by mouth every 12 hours. semaglutide (OZEMPIC) 0.25 mg or 0.5 mg (2 mg/3 mL) pen Inject 0.25 mg subcutaneously one time a week. metoprolol succinate ER (TOPROL XL) 25 mg 24 hr tablet Take 1 tablet by mouth once daily. Blood-Glucose Meter Use to test blood sugar 3 times daily. Lancets Use to test blood sugar 3 times daily. blood sugar diagnostic (BLOOD GLUCOSE TEST) test strip Use to test blood sugar 3 times daily. No current facility-administered medications for this visit. I have confirmed and edited as necessary the past medical, family and social histories, HPI, and ROS obtained by others. Objective BP 140/100 Pulse 75 Temp 98.7 Ht 6' 0 (1.83m) Wt 318 lb (144.2kg) SpO2 94% BMI 43.12 kg/(m2). Physical Exam Vitals and nursing note reviewed. Constitutional: General: He is not in acute distress. Appearance: Normal appear (more content not included)... Normal [facility] 12 Lead EKGon 02-18-2025 12 Lead EKG [facility] Services [address] [place] [address] 12 Lead EKG 02/18/25 1618 MR#: [id number] Acct: [id number] Name: JAI GREEN Rep #: [id number] : 1970 54 From: Adi Talavera MD Attending Dr: Status: DEP ER Ordering Dr: Danish Li MD Date: 02/18/25 Location: ED Sex: M C Admitted: Test Reason : Blood Pressure : */* mmHG Vent. Rate : 81 BPM Atrial Rate : 81 BPM P-R Int : 154 ms QRS Dur : 90 ms QT Int : 380 ms P-R-T Axes : 27 16 29 degrees QTcB Int : 441 ms Normal sinus rhythm Normal ECG Confirmed by ADI TALAVERA MD ([id number]), news video editor EDGARDO ODOM ([id number]) on 02/20/2025 8:17:32 AM Referred By: JAYDEN Confirmed By: ADI TALAVERA MD 02/20/25 0817 Date Adi Talavera MD CC: TREE Triana; Dr. Danish Li MD Signed Normal [facility] Absolute neutrophil countOrd ered By: Danish Li on 02-18-2025 Neutrophils (Bld) [#/Vol] 5.1 10*3/uL 2.0-7.7 [facility] Anion gap in Serum or Plasma Ordered By: Danish Li on 02-18-2025 Anion gap [Moles/Vol] 12 mmol/L 5- [facility] BUN/creatinine ratioOrdered By: Danishdomi Li on 02-18-2025 Urea nitrogen/Creatinine [Mass ratio] 23.5 mg/mg High 10- [facility] Basophil percentageOrdered B y: Danish Li on 02-18-2025 Basophils/100 WBC (Bld) 0.5 % 0-1 [facility] Bilirubin Test strip Ql (U)O rdered By: Danish Li on 02-18-2025 Bilirubin Ql (U) Negative Negative [facility] Bilirubin, totalOrdered By: Danish Li on 02-18-2025 Bilirubin [Mass/Vol] 0.27 mg/dL 0.00-1.30 [facility] CBC W/Diff, Automatedon 01-27 Absolute Lymph 2.03 X10 3/uL Normal 0.83-4.51 [facility] Comment on above: Performed By: #### L 500.4050, L501.9520, L100.0100 ####[facility] [address] [place], [address] Absolute Neut 5.1 X10 3/uL Normal 2.0-7.7 [facility] Comment on above: Performed By: #### L 500.4050, L501.9520, L100.0100 ####[facility] [address] [place], [address] Basophils/100 WBC (Bld) 0.5 % Normal 0-1 [facility] Comment on above: Performed By: #### L 500.4050, L501.9520, L100.0100 ####[facility] [address] [place], [address] Eosinophils/100 WBC (Bld) 4.4 % Normal 0-5 [facility] Comment on above: Performed By: #### L 500.4050, L501.9520, L100.0100 ####[facility] [address] [place], [address] Erythrocyte distribution width (RBC) [Ratio] 14.0 % Normal 11.6-14.6 [facility] Comment on above: Performed By: #### L 500.4050, L501.9520, L100.0100 ####[facility] [address] [place], [address] Hematocrit (Bld) [Volume fraction] 48.2 % Normal 40-54 [facility] Comment on above: Performed By: #### L 500.4050, L501.9520, L100.0100 ####[facility] [address] [place], [address] Hemoglobin (Bld) [Mass/Vol] 16.3 g/dL Normal 13.0-16.5 [facility] Comment on above: Performed By: #### L 500.4050, L501.9520, L100.0100 ####[facility] [address] [place], [address] IG% 0.500 Normal 0.0-0.9 [facility] Comment on above: Result Comment: IG% - Immature Granulocytes (promyelocytes, myelocytes and metamyelocytes) > 1% indicates that a LEFT SHIFT is Present. Performed By: #### L 500.4050, L501.9520, L100.0100 ####[facility] [address] [place], [address] Lymphocytes/100 WBC (Bld) 24.3 % Normal 19-41 [facility] Comment on above: Performed By: #### L 500.4050, L501.9520, L100.0100 ####[facility] [address] [place], [address] MCH (RBC) [Entitic mass] 30.4 pg Normal 27.0-32.0 [facility] Comment on above: Performed By: #### L 500.4050, L501.9520, L100.0100 ####[facility] [address] [place], [address] MCHC (RBC) [Mass/Vol] 33.8 g/dL Normal 32-36 [facility] Comment on above: Performed By: #### L 500.4050, L501.9520, L100.0100 ####[facility] [address] [place], [address] MCV (RBC) [Entitic vol] 89.8 fL Normal 80-94 [facility] Comment on above: Performed By: #### L 500.4050, L501.9520, L100.0100 ####[facility] [address] [place], [address] Monocytes/100 WBC (Bld) 8.7 % Normal 0-10 [facility] Comment on above: Performed By: #### L 500.4050, L501.9520, L100.0100 ####[facility] [address] [place], [address] Neutrophils/100 WBC (Bld) 61.6 % Normal 47-70 [facility] Comment on above: Performed By: #### L 500.4050, L501.9520, L100.0100 ####[facility] [address] [place], [address] Nucleated RBC (Bld) [#/Vol] 0 10*3/uL Normal 0-5 [facility] Comment on above: Performed By: #### L 500.4050, L501.9520, L100.0100 ####[facility] [address] [place], [address] Platelet mean volume (Bld) [Entitic vol] 10.9 fL Normal 6.2-12.0 [facility] Comment on above: Performed By: #### L 500.4050, L501.9520, L100.0100 ####[facility] [address] [place], [address] Platelets (Bld) [#/Vol] 183 10*3/uL Normal 150-450 [facility] Comment on above: Performed By: #### L 500.4050, L501.9520, L100.0100 ####[facility] [address] [place], [address] RBC (Bld) [#/Vol] 5.37 10*6/uL Normal 4.6-6.2 [facility] Comment on above: Performed By: #### L 500.4050, L501.9520, L100.0100 ####[facility] [address] [place], [address] RDW SD 45.6 fl High 35.1-43.9 [facility] Comment on above: Performed By: #### L 500.4050, L501.9520, L100.0100 ####[facility] [address] [place], [address] WBC (Bld) [#/Vol] 8.4 10*3/uL Normal 4.4-11.0 [facility] Comment on above: Performed By: #### L 500.4050, L501.9520, L100.0100 ####[facility] [address] [place], [address] CNOVon 02-18-2025 CNOV Office Visit ([facility] ) -- JAI GREEN ([id number]) 1970 M Date Time Provider Department 02/18/25 3:00 PM KINJAL GRIJALVA [facility] During your visit today, we recorded the following information about you: Temperature Pulse Respiration Blood pressure 98.6 degrees 88/minute 18/minute 132/74 Weight 143.6 kg Kinjal Grijalva PA-C 02/18/2025 3:24 PM Signed This note was created using QuicklyChatriter. Subjective Jai Green is a 54 year old male. Patient is a 54-year-old male who complains of worsening swelling to his bilateral lower legs and feet right greater than left that has been present for the past 2 to 3 days. Patient denies pain or injury to his bilateral lower legs. Patient denies chest pain, tightness or pressure reports no dyspnea or shortness of breath. Patient states that he has no history of congestive heart failure. Patient does have hypertension and is taking hydrochlorothiazide as directed. Patient presents with obvious 3+ pitting edema bilaterally right greater than left and was immediately advised that he requires evaluation in an emergency department laboratory testing and other management is available. Patient verbalizes agreement with this recommendation and states he will report immediately to the emergency department at [facility] after leaving this [facility] facility. Edema Review of Systems Objective BP 132/74 Pulse 88 Temp 37 ?C (98.6 ?F) Resp 18 Wt (!) 143.6 kg (316 lb 9.3 oz) SpO2 96% Physical Exam Assessment and Plan Allergies As of Date: 02/18/2025 (No Known Allergies) Date Reviewed: 02/18/2025 Reviewed by: Berenice Cosme MA - Fully Assessed Reason for Visit: Edema [39] Cmt: bilateral ankles and feet, sciatic pain on right side x 2-3 days Primary Visit Diagnosis:Peripheral edema [R60.0] Prescriptions as of 02/18/2025 - amLODIPine (NORVASC) 10 mg tablet Take 1 tablet by mouth once daily. - losartan-hydroCHLOROthiazi de (HYZAAR) 100-25 mg per tablet Take 1 tablet by mouth once daily. - meclizine (ANTIVERT) 25 mg tab TAKE 1 TABLET BY MOUTH FOUR TIMES DAILY NEEDED for dizziness - metFORMIN (GLUCOPHAGE) 500 mg tablet Take 1 tablet by mouth every 12 hours. Problem List As Of Date: 02/18/2025 (None) Letter Text Encounter Status:Closed by KINJAL GRIJALVA on 02/18/25 Normal [facility] Carbon dioxide, total [Moles /volume] in Central venous bloodOrdered By: Danish Li on 02-18-2025 CO2 [Moles/Vol] 26.1 mmol/L 21.0-32.0 [facility] Chloride assayOrdered By: Jaye Li on 02-18-2025 Chloride [Moles/Vol] 100 mmol/L 98-108 [facility] Comprehensive Metabolic Prof ilon 02-18-2025 Albumin [Mass/Vol] 4.3 g/dL Normal 3.5-5.0 [facility] Comment on above: Performed By: #### L 500.4050, L501.9520, L100.0100 ####[facility] [address] [place], [address] Albumin/Globulin [Mass ratio] 1.5 {ratio} Normal 0.9-2.4 [facility] Comment on above: Performed By: #### L 500.4050, L501.9520, L100.0100 ####[facility] [address] [place], [address] ALK PHOS 78 U/L Normal 40-129 [facility] Comment on above: Performed By: #### L 500.4050, L501.9520, L100.0100 ####[facility] [address] [place], [address] ALT [Catalytic activity/Vol] 27 U/L Normal <=46 [facility] Comment on above: Performed By: #### L 500.4050, L501.9520, L100.0100 ####[facility] [address] [place], [address] AST [Catalytic activity/Vol] 25 U/L Normal <=37 [facility] Comment on above: Result Comment: Hemo lysis present, Results??could be affected. ?? Performed By: #### L 500.4050, L501.9520, L100.0100 ####[facility] [address] [place], [address] Bilirubin [Mass/Vol] 0.27 mg/dL Normal 0.00-1.30 [facility] Comment on above: Performed By: #### L 500.4050, L501.9520, L100.0100 ####[facility] [address] [place], [address] BUN/CRE 23.5 RATIO High 10-20 [facility] Comment on above: Performed By: #### L 500.4050, L501.9520, L100.0100 ####[facility] [address] [place], [address] Calcium [Mass/Vol] 9.8 mg/dL Normal 7.6-11.0 [facility] Comment on above: Performed By: #### L 500.4050, L501.9520, L100.0100 ####[facility] [address] [place], [address] Chloride [Moles/Vol] 100 mmol/L Normal 98-108 [facility] Comment on above: Performed By: #### L 500.4050, L501.9520, L100.0100 ####[facility] [address] [place], [address] CO2 [Moles/Vol] 26.1 mmol/L Normal 21.0-32.0 [facility] Comment on above: Performed By: #### L 500.4050, L501.9520, L100.0100 ####[facility] [address] [place], [address] Creatinine [Mass/Vol] 0.75 mg/dL Normal 0.70-1.20 [facility] Comment on above: Performed By: #### L 500.4050, L501.9520, L100.0100 ####[facility] [address] [place], [address] ECRCL 169.78 ml/min Normal 50-250 [facility] Comment on above: Performed By: #### L 500.4050, L501.9520, L100.0100 ####[facility] [address] [place], [address] GAP 12 Normal 5-15 [facility] Comment on above: Performed By: #### L 500.4050, L501.9520, L100.0100 ####[facility] [address] [place], [address] GFR/1.73 sq M.predicted among non-blacks MDRD (S/P/Bld) [Vol rate/Area] 108 mL/min/{1.73_m2} Normal >60 [facility] Comment on above: Result Comment: mL/m in/1.73m2 CKD-EPI Creatinine Equation (2020) Performed By: #### L 500.4050, L501.9520, L100.0100 ####[facility] [address] [place], [address] Globulin (S) [Mass/Vol] 2.9 g/dL Normal 2.2-4.2 [facility] Comment on above: Performed By: #### L 500.4050, L501.9520, L100.0100 ####[facility] [address] [place], [address] Glucose [Mass/Vol] 164 mg/dL High 70-99 [facility] Comment on above: Performed By: #### L 500.4050, L501.9520, L100.0100 ####[facility] [address] [place], [address] Potassium [Moles/Vol] 4.0 mmol/L Normal 3.3-5.1 [facility] Comment on above: Result Comment: Hemo lysis present, Results??could be affected. ?? Performed By: #### L 500.4050, L501.9520, L100.0100 ####[facility] [address] [place], [address] Sodium [Moles/Vol] 138 mmol/L Normal 133-145 [facility] Comment on above: Performed By: #### L 500.4050, L501.9520, L100.0100 ####[facility] [address] [place], [address] T PROT 7.1 g/dL Normal 5.9-8.4 [facility] Comment on above: Performed By: #### L 500.4050, L501.9520, L100.0100 ####[facility] [address] [place], [address] Urea nitrogen [Mass/Vol] 18 mg/dL Normal 4-19 [facility] Comment on above: Performed By: #### L 500.4050, L501.9520, L100.0100 ####[facility] [address] [place], [address] Emergency Department Summary on 02-18-2025 Emergency Department Summary [facility] Medical Records Department [address] [place] [address] Emergency Department Summary 02/18/25 MR#: [id number] Acct: [id number] Name: JAI GREEN Rep #: [id number] : 1970 54 From: Danish Li MD PCP: TREE Hawthorne Status:DEP ER Location: ED ADDENDUM by Dr. Danish Li MD on 02/19/25 at 0041 Sinus rhythm rate of 81. EKG is normal. DE interval is under 54 ms. QRS duration 90 ms. QT duration 380 ms. [place] is normal. 02/19/25 0041 Cosigner Signature (if applicable): cc: REHAB OFFICE COORDINATORVeronica Triana * Signed HPI History of Present Illness Chief Complaint: Edema Detail of Chief Complaint: Patient presents with edema of his lower extremities for the past couple of Informant: patient Onset/Context/Timing Onset: Days Context: Sudden Onset Timing: Continuous Quality: Swelling legs it feet. Location: Lower extremities bilaterally Current Severity: Moderate Maximum Severity: Moderate Worsened by: Unknown Relieved by: Nothing Associated Symptoms Associated Symptoms: None Narrative Narrative: Patient is a 54-year-old male with type 2 diabetes and hypertension who is on amlodipine and losartan hydrochlorothiazide for his hypertension and metformin for his diabetes who presents with swelling over the past couple days of his lower extremities. He states he stands and walks a lot. He denies orthopnea or PND. He denies cardiac disease or anginal or anginal equivalent symptoms. He denies known kidney disease. He denies thyroid disease. He denies fatigue, cold intolerance, abdominal pain or constipation. He denies any change in the color, consistency or caliber of his stool. He has no known history of cancer. He denies fever, chills night sweats. He does endorse a 5 pound weight gain over the past 3 months. Prior similar symptoms: No Recent Illness/Hospitalization: No [facility] Medical History Pancreatitis No previous significant medical history Home Medications ???Medication ???Instructions ???Recorded ???Last Taken ???Type amlodipine 10 mg tablet (Norvasc) 10 mg PO DAILY #30 tabs 11/25/24 Unknown Rx erythromycin 5 mg/gram (0.5 %) eye 1 applic RIGHT EYE BID 7 days #5 0 11/25/24 Unknown Rx ointment grams losartan 100 1 tab PO DAILY 12/21/24 Unknown Hi story mg-hydrochlorothiazide 25 mg tablet amoxicillin 875 mg-potassium 1 tab PO BID 7 days #14 tabs 12/22 Unknown Rx clavulanate 125 mg tablet meclizine 25 mg tablet 25 mg PO 4X/DAY PRN PRN Dizziness 02/04/25 Unknown Rx #20 tabs metformin 500 mg tablet 500 mg PO BID 02/04/25 Unknown His tory Allergy/AdvReac Type Severity Reaction Status Date / Time No Known Allergies Allergy Verified 02/18/25 15:29 Social History household members: significant other Smoking Status: Former smoker substance use type: does not use ROS ROS ED Constitutional Constitutional ED: Denies chills, fever(s), subjective, sweats or weight loss Eyes Eyes: Denies blurry vision or change in vision ENT ENT ED: Denies rhinorrhea Cardiovascular Cardiovascular: Denies chest pain, orthopnea, palpitations or paroxysmal nocturnal dyspnea Respiratory/Chest Respiratory/Chest: Denies cough, dyspnea, dyspnea on exertion, orthopnea or paroxysmal nocturnal dyspnea Gastrointestinal Gastrointestinal: Denies abdominal pain, constipation, diarrhea, nausea or vomiting Musculoskeletal Musculoskeletal: Denies back pain Integumentary Denies rash Neurologic Neurologic: Denies weakness Psychiatric Psychiatric: Denies anxiety Endocrine Endocrinology: Denies cold intolerance Hematologic/Lymphatic Hematologic/Lymphatic: Reports systems reviewed and no addt'l complaints, except as documented EXAM Physical Exam Const Vital Signs: 02/18/25 15:29 02/18/25 15:32 02/18/25 15:59 Temperature 97.7 F L Temperature Source Oral Pulse Rate 98 Respiratory Rate 18 Respiratory Effort Normal Respiratory Pattern Normal Blood Pressure 197/107 H 156/99 H Blood Pressure Mean 137 118 Pulse Ox 95 Oxygen Delivery Method Room Air 02/18/25 17:29 Temperature Temperature Source Pulse Rate 70 Respiratory Rate 20 H Respiratory Effort Respiratory Pattern Blood Pressure 130/91 H Blood Pressure Mean 104 Pulse Ox Oxygen Delivery Method Room Air Positive well nourished and well developed Constitutional Narrative: BMI is 43.1. Initial blood pressure was elevated. Repeat is markedly improved with no intervention. General Appearance ED: well developed; Negative for pallor HEENT Reports moist mucous membranes HEENT Narrative: Head is atraumatic normocephalic. Ears normal. Nares patent. (more content not included)... Normal [facility] Eosinophil percentageOrdered By: Danish Li on 02-18-2025 Eosinophils/100 WBC (Bld) 4.4 % 0-5 [facility] Epithelial cells.squamous LM Ql (Urine sed)Ordered By: Danish Li on 02-18-2025 Epithelial cells.squamous LM.HPF (Urine sed) [#/Area] 0 /[HPF] 0-5 [facility] Erythrocyte distribution wid th ratioOrdered By: Danish Li on 02-18-2025 Erythrocyte distribution width (RBC) [Ratio] 14.0 % 11.6-14.6 [facility] Erythrocyte distribution wid th standard deviationOrdered By: Danish Li on 02-18-2025 Erythrocyte distribution width (RBC) [Entitic vol] 45.6 fL High 35.1-43.9 [facility] Estimation of creatinine hilton aranceOrdered By: Danish Li on 02-18-2025 Estimated Creatinine Clearance Calc 169.78 ml/min 50-250 [facility] GFR/1.73 sq M.predicted chana g non-blacks MDRD (S/P/Bld) [Vol rate/Area]Ordered By: Danish Li on 02-18-2025 Estimated GFR (MDRD) Non-Af Amer 108 >60 [facility] Comment on above: mL/min/1.73m2 CKD-EP I Creatinine Equation (2020) Glucose Ql (U)Ordered By: Jaye Li on 02-18-2025 Urine Glucose (UA) Normal mg/dl Normal [facility] Hematocrit Auto (Bld) [Volum e fraction]Ordered By: Danish Li on 02-18-2025 Hematocrit (Bld) [Volume fraction] 48.2 % 40-54 [facility] Hemoglobin measurementOrdere d By: Danish Li on 02-18-2025 Hemoglobin (Bld) [Mass/Vol] 16.3 g/dL 13.0-16.5 [facility] Immature granulocytes/100 WB C Auto (Bld)Ordered By: Danish Li 02-18-2025 Immature granulocytes/100 WBC (Bld) 0.500 % 0.0-0.9 [facility] Comment on above: IG% - Immature Granu locytes (promyelocytes, myelocytes and metamyelocytes) > 1% indicates that a LEFT SHIFT is Present. Ketones Test strip Ql (U)Ord ered By: Danish Li on 02-18-2025 Ketones Ql (U) Negative Negative [facility] Laboratory - Chemistry and C hemistry - challengeOrdered By: Danish Li on 02-18-2025 AST [Catalytic activity/Vol] 25 U/L <38 [facility] Comment on above: Hemolysis present, R esults could be affected. Lymphocytes Auto (Unsp spec) [#/Vol]Ordered By: Danish Li on 02-18-2025 Lymphocytes (Bld) [#/Vol] 2.03 10*3/uL 0.83-4.51 [facility] Lymphocytes/100 WBC Auto (Un sp spec)Ordered By: Danish Li on 02-18-2025 Lymphocytes/100 WBC (Bld) 24.3 % 19-41 [facility] MCV (mean corpuscular volume ) determinationOrdered By: Danish Li on 02-18-2025 MCV (RBC) [Entitic vol] 89.8 fL 80-94 [facility] Mean corpuscular hemoglobin (MCH) determinationOrdered By: Danish Li on 02-18-2025 MCH (RBC) [Entitic mass] 30.4 pg 27.0-32.0 [facility] Mean corpuscular hemoglobin concentration (MCHC) determinationOrdered By: Danish Li on 02-18-2025 MCHC (RBC) [Mass/Vol] 33.8 g/dL 32-36 [facility] Mean platelet volume determi nationOrdered By: Danish Li on 02-18-2025 Platelet mean volume (Bld) [Entitic vol] 10.9 fL 6.2-12.0 [facility] Microscopic analysis of urin e for red blood cells (RBC)Ordered By: Danish Li on 02-18-2025 Urine RBC 0 SEEN /hpf 0-5 [facility] Monocyte percentageOrdered B y: Danish Li on 02-18-2025 Monocytes/100 WBC (Bld) 8.7 % 0-10 [facility] Mucus LM Ql (Urine sed)Order ed By: Danish Li on 02-18-2025 Mucus Ql (Urine sed) 1+ /hpf [facility] Neutrophil percentageOrdered By: Danish Li on 02-18-2025 Neutrophils/100 WBC (Bld) 61.6 % 47-70 [facility] Nitrite Test strip Ql (U)Ord ered By: Danish Li on 02-18-2025 Nitrite Ql (U) Negative Negative [facility] Nucleated red blood cell per centageOrdered By: Danish Li on 02-18-2025 Nucleated RBC/100 WBC (Bld) [Ratio] 0 % 0-5 [facility] Platelet countOrdered By: Jaye Li on 02-18-2025 Platelets (Bld) [#/Vol] 183 10*3/uL 150-450 [facility] Potassium (Unsp spec) [Mass/ Vol]Ordered By: Danish Li on 02-18-2025 Potassium [Moles/Vol] 4.0 mmol/L 3.3-5.1 [facility] Comment on above: Hemolysis present, R esults could be affected. Protein Test strip Ql (U)Ord ered By: Danish Li on 02-18-2025 Protein Ql (U) 30 mg/dl High Negative [facility] RBC Auto (Bld) [#/Vol]Ordere d By: Danish Li on 02-18-2025 RBC (Bld) [#/Vol] 5.37 10*6/uL 4.6-6.2 [facility] Serum creatinine measurement (mass/volume)Ordered By: Danish Li on 02-18-2025 Creatinine [Mass/Vol] 0.75 mg/dL 0.70-1.20 [facility] Serum globulin measurementOr dered By: Danish Li on 02-18-2025 Globulin (S) [Mass/Vol] 2.9 g/dL 2.2-4.2 [facility] Serum glucose measurement (m ass/volume)Ordered By: Danish Li on 02-18-2025 Glucose [Mass/Vol] 164 mg/dL High 70-99 [facility] Serum or plasma alanine mina otransferase (ALT) measurementOrdered By: Danish Li on 02-18-2025 ALT [Catalytic activity/Vol] 27 U/L <47 [facility] Serum or plasma albumin violet urement (mass/volume)Ordered By: Danish Li on 02-18-2025 Albumin [Mass/Vol] 4.3 g/dL 3.5-5.0 [facility] Serum or plasma albumin/glob ulin mass ratioOrdered By: Danishdomi Li on 02-18-2025 Albumin/Globulin [Mass ratio] 1.5 {ratio} 0.9-2.4 [facility] Serum or plasma alkaline joe sphatase measurementOrdered By: Danishdomi Li on 02-18-2025 ALP [Catalytic activity/Vol] 78 U/L 40-129 [facility] Serum or plasma calcium violet urement (mass/volume)Ordered By: Danishdomi Li on 02-18-2025 Calcium [Mass/Vol] 9.8 mg/dL 7.6-11.0 [facility] Serum or plasma urea nitroge n measurement (mass/volume)Ordered By: Danish Li on 02-18-2025 Urea nitrogen [Mass/Vol] 18 mg/dL 4-19 [facility] Sodium levelOrdered By: Danish Li on 02-18-2025 Sodium [Moles/Vol] 138 mmol/L 133-145 [facility] TSH DL <= 0.005 mIU/L QnOrde red By: Danishdomi Li on 02-18-2025 Thyroid Stimulating Hormone (TSH) 3.180 uIU/mL 0.300-4.200 [facility] Thyroid Stim Hormone (TSH)on 02-18-2025 TSH 3.180 uIU/mL Normal 0.300-4.200 [facility] Comment on above: Performed By: #### L 500.4050, L501.9520, L100.0100 ####[facility] [address] [place], [place], [id number] Total proteinOrdered By: Danishdomi Li on 02-18-2025 Protein [Mass/Vol] 7.1 g/dL 5.9-8.4 [facility] Urinalysis, Completeon 02-18 EPI,SQUAMOUS 0-5 SEEN Normal 0-5 [facility] Comment on above: Order Comment: CLEAN CATCH Performed By: #### L 400.0001 #### [facility] [address] [place], [address] Mucus Ql (Urine sed) 1+ /hpf Normal [facility] Comment on above: Order Comment: CLEAN CATCH Performed By: #### L 400.0001 #### [facility] [address] [place], [place], [id number] RBC 0 SEEN Normal 0-5 [facility] Comment on above: Order Comment: CLEAN CATCH Performed By: #### L 400.0001 #### [facility] [address] [place], [address] WBC 0-5 SEEN Normal 0-5 [facility] Comment on above: Order Comment: CLEAN CATCH Performed By: #### L 400.0001 #### [facility] [address] [place], [place], [id number] BACTERIA 0 SEEN Normal None Seen [facility] Comment on above: Order Comment: CLEAN CATCH Performed By: #### L 400.0001 #### [facility] [address] [place], [place], [id number] Urine blood detectionOrdered By: Danish Li on 02-18-2025 Urine Occult Blood Negative Negative [facility] Urine clarityOrdered By: Danish Li on 02-18-2025 Clarity (U) Clear Clear [facility] Urine color determinationOrd ered By: Danish Li on 02-18-2025 Color (U) Yellow Yellow [facility] Urine leukocyte esterase det ection by dipstickOrdered By: Danish Li on 02-18-2025 Leukocyte esterase Test strip Ql (U) 25 /ul High Negative [facility] Urine pHOrdered By: Danish el on 02-18-2025 pH (U) 5.0 [pH] 5.0 - 8.0 [facility] Urine sediment bacteria coun t by microscopy (number/high power field)Ordered By: Danish Li on 02-18-2025 Bacteria LM.HPF (Urine sed) [#/Area] 0 /[HPF] None Seen [facility] Urine specific gravity measu rementOrdered By: Danish Li on 02-18-2025 Specific gravity (U) [Rel density] 1.025 1.002-1.030 [facility] Urobilinogen Ql (U)Ordered B y: Danish Li on 02-18-2025 Urine Urobilinogen Normal mg/dl Normal [facility] White blood cell (WBC) count Ordered By: Danish Li on 02-18-2025 WBC (Bld) [#/Vol] 8.4 10*3/uL 4.4-11.0 [facility] White blood cell countOrdere d By: Danish Li on 02-18-2025 Urine WBC 0-5 SEEN /hpf 0-5 [facility] CNOVon 02-05-2025 CNOV Office Visit (UCWSTR ) -- JAI GREEN ([id number]) 1970 M Date Time Provider Department 02/05/25 4:00 PM ADELE MCCLURE UCWS During your visit today, we recorded the following information about you: Temperature Pulse Respiration Blood pressure 97.8 degrees 78/minute 20/minute 142/82 Weight 142.1 kg Adele Mcclure APRN.CNP 02/05/2025 6:06 PM Signed CC: Patient presents with: Cough: x 2 weeks, sore throat x 1 day HPI Jai Green is a 54 year old male who presents with a productive cough with green/dubose phlegm x 2 weeks and a sore throat and lump at neck x 1 day. The patient denies fevers, chills, nasal drainage, SOB, chest pain or palpitations. He reports getting this lump every year around the same time. He typically is prescribed antibiotics. He is not established with a primary care and has gone to the [facility] for care and blood pressure management. Denies history of asthma, COPD, or thyroid problems. He recently obtained health insurance and is requesting a referral to establish care with a PCP. 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 He is using mariajuana occasionally. His main concern today is his sore throat and lump. Review of Systems Constitutional: Negative for activity change, appetite change, chills, fatigue and fever. HENT: Positive for sore throat. Negative for congestion, ear pain, postnasal drip, rhinorrhea, sinus pain, sneezing and trouble swallowing. Respiratory: Positive for cough. Negative for chest tightness, shortness of breath and wheezing. Cardiovascular: Negative for chest pain and palpitations. Gastrointestinal: Negative for abdominal pain, diarrhea, nausea and vomiting. Musculoskeletal: Negative for arthralgias, myalgias and neck pain. Skin: Negative for color change and rash. Allergic/Immunologic: Negative for environmental allergies, food allergies and immunocompromised state. No past medical history on file. No past surgical history on file. ALLERGIES Patient has no known allergies. MEDICATIONS amLODIPine (NORVASC) 10 mg tablet Take 1 tablet by mouth once daily. losartan-hydroCHLOROthiazi de (HYZAAR) 100-25 mg per tablet Take 1 tablet by mouth once daily. meclizine (ANTIVERT) 25 mg tab TAKE 1 TABLET BY MOUTH FOUR TIMES DAILY NEEDED for dizziness metFORMIN (GLUCOPHAGE) 500 mg tablet Take 1 tablet by mouth every 12 hours. No family history on file. BP 142/82 Pulse 78 Temp 36.6 ?C (97.8 ?F) Resp 20 Wt (!) 142.1 kg (313 lb 4.4 oz) SpO2 97% Physical Exam HENT: Head: Jaw: No trismus or tenderness. Right Ear: Tympanic membrane and ear canal normal. No mastoid tenderness. Tympanic membrane is not erythematous. Left Ear: Tympanic membrane and ear canal normal. No mastoid tenderness. Tympanic membrane is not erythematous. Nose: No congestion or rhinorrhea. Right Sinus: No maxillary sinus tenderness or frontal sinus tenderness. Left Sinus: No maxillary sinus tenderness or frontal sinus tenderness. Mouth/Throat: Lips: [place]. Mouth: Mucous membranes are moist. No injury, lacerations or oral lesions. Dentition: Normal dentition. No dental tenderness, gingival swelling or dental abscesses. Tongue: No lesions. Palate: No mass and lesions. Pharynx: Oropharynx is clear. Uvula midline. No posterior oropharyngeal erythema, uvula swelling or postnasal drip. Neck: Thyroid: No thyroid mass. Trachea: Trachea normal. Comments: Palpable submental adenopathy Musculoskeletal: Cervical back: Normal range of motion. No erythema, rigidity or torticollis. Lymphadenopathy: Cervical: Cervical adenopathy present. Neurological: Mental Status: He is alert. Psychiatric: Behavior: Behavior is cooperative. ASSESSMENT/PLAN: 1.Submental adenopathy - ICD9: 785.6, ICD10: R59.0 Lump noticed yesterday with sore throat. No difficulty swallowing. No erythema. Afebrile. Dentition free of pain, decay or swelling. Patient states I have gotten this every year for over 5 years. I get antibiotics then it goes away. Denies hx of environmental allergies. - Establish with PCP for follow up and establish care. - Appointment made with Nancy Doe in [place] for 03/14/2025 - Start taking DOXYCYLINE 100MG bid x 7 days - The patient should follow up in 3-5 days if symptoms persist or worsen - Work excuse provided. 2. Sore throat - ICD9: 462, ICD10: J02.9 (primary diagnosis) Started yesterday. No difficulty swallowing. No tonsillar swelling or exudate. Throat clear. - Suspect viral - Rapid Strep negative in the office today - Discussed supportive care treatment with fluids, rest and analgesia. - The patient may also use warm salt water gargles, throat lozenges and/or OTC throat spray as needed. - STREP A MOLECULAR (POC) negative and discussed with patient. 3. Acute cough (more content not included)... Normal [facility] STREP A MOLECULAR (POC)on Procedural Control Valid [facility] Strep A (POCT) Negative Negative [facility] XR CHEST 2V FRONTAL/LATon XR CHEST 2V FRONTAL/LAT * * *Final Report* * * DATE OF EXAM: Feb 05 2025 4:42PM WOX [id number] - XR CHEST 2V FRONTAL/LAT / PROCEDURE REASON: Acute cough * * * * Physician Interpretation * * * * EXAMINATION: CHEST RADIOGRAPH (2 VIEW FRONTAL and LATERAL) CLINICAL HISTORY: Acute cough MQ: XC2_6 EXAM DATE/TIME: 02/05/2025 4:42 PM COMPARISON: No relevant prior studies available. RESULT: Lines, tubes, and devices: None. Lungs and pleura: No consolidation. No lung mass. No pleural effusion. No pneumothorax. Cardiomediastinal silhouette: Normal cardiomediastinal silhouette. Bones and soft tissues: Degenerative changes are present within the thoracic spine. IMPRESSION: No acute radiographic abnormality. Ecg Technician: YOSELYN Transcribe Date/Time: Feb 05 2025 4:44P Dictated by : AYE WELSH MD This examination was interpreted and the report reviewed and electronically signed by: AYE WELSH MD on Feb 05 2025 4:45PM EST [id number] Normal [facility] XR Chest PA and Lateralon IMPRESSION: No acute radiographic abnormality. Ecg Technician: [facility] Transcribe Date/Time: Feb 05 2025 4:44P Dictated by : AYE WELSH MD This examination was interpreted and the report reviewed and electronically signed by: AYE WELSH MD on Feb 05 2025 4:45PM EST DIVISION OF RADIOLOGY * * *Final Report* * * DATE OF EXAM: Feb 05 2025 4:42PM WOX [id number] - XR CHEST 2V FRONTAL/LAT / PROCEDURE REASON: Acute cough * * * * Physician Interpretation * * * * EXAMINATION: CHEST RADIOGRAPH (2 VIEW FRONTAL & LATERAL) CLINICAL HISTORY: Acute cough MQ: XC2_6 EXAM DATE/TIME: 02/05/2025 4:42 PM COMPARISON: No relevant prior studies available. RESULT: Lines, tubes, and devices: None. Lungs and pleura: No consolidation. No lung mass. No pleural effusion. No pneumothorax. Cardiomediastinal silhouette: Normal cardiomediastinal silhouette. Bones and soft tissues: Degenerative changes are present within the thoracic spine. DIVISION OF RADIOLOGY Provider, [facility] - 02/05/2025 * * *Final Report* * * DATE OF EXAM: Feb 05 2025 4:42PM WOX 5291 - XR CHEST 2V FRONTAL/LAT / PROCEDURE REASON: Acute cough * * * * Physician Interpretation * * * * EXAMINATION: CHEST RADIOGRAPH (2 VIEW FRONTAL & LATERAL) CLINICAL HISTORY: Acute cough MQ: XC2_6 EXAM DATE/TIME: 02/05/2025 4:42 PM COMPARISON: No relevant prior studies available. RESULT: Lines, tubes, and devices: None. Lungs and pleura: No consolidation. No lung mass. No pleural effusion. No pneumothorax. Cardiomediastinal silhouette: Normal cardiomediastinal silhouette. Bones and soft tissues: Degenerative changes are present within the thoracic spine. IMPRESSION IMPRESSION: No acute radiographic abnormality. Ecg Technician: PSCB Transcribe Date/Time: Feb 05 2025 4:44P Dictated by : AYE WELSH MD This examination was interpreted and the report reviewed and electronically signed by: AYE WELSH MD on Feb 05 2025 4:45PM EST [facility] Radiology Study observation (narrative) [facility] XR Chest PA and LateralOrder ed By: [facility] Provider on 02-05-2025 [facility] Bedside Glucoseon 02-04-2025 FINGERSTICK GLU 130 mg/dL High 74-106 [facility] Comment on above: Result Comment: HU JOHNSON OF PATIENT CARE PER NURSING PROTOCOL Performed By: #### L 501.080 ####[facility] [id number] [facility] [place], [address] Emergency Department Summary on 02-04-2025 Emergency Department Summary [facility] Medical Records Department [address] [place] [address] Emergency Department Summary 02/04/25 MR#: [id number] Acct: [id number] Name: JAI GREEN Rep #: [id number] : 1970 54 From: Katt MORIN PCP: TREE Hawthorne Status:DEP ER Location: ED HPI History of Present Illness Chief Complaint: General Illness Narrative Narrative: 54-year-old male with past medical history of HTN, DM2, vertigo states he feels off over the last 3 days. He feels fatigued and like he has difficulty thinking. He is had a headache, sore throat and cough. Today he was lying in bed and when rolling over he had 10 seconds of room spinning and nausea. This occurred about 3 times. It felt similar to vertigo he had in the past. He has no chest pain or shortness of breath. No vomiting, abdominal pain or diarrhea. PFSH [facility] Medical History Pancreatitis No previous significant medical history Home Medications ???Medication ???Instructions ???Recorded ???Last Taken ???Type amlodipine 10 mg tablet (Norvasc) 10 mg PO DAILY #30 tabs 11/25/24 Unknown Rx erythromycin 5 mg/gram (0.5 %) eye 1 applic RIGHT EYE BID 7 days #5 0 11/25/24 Unknown Rx ointment grams losartan 100 1 tab PO DAILY 12/21/24 Unknown Hi story mg-hydrochlorothiazide 25 mg tablet amoxicillin 875 mg-potassium 1 tab PO BID 7 days #14 tabs 12/22 Unknown Rx clavulanate 125 mg tablet meclizine 25 mg tablet 25 mg PO 4X/DAY PRN PRN Dizziness 02/04/25 Unknown Rx #20 tabs metformin 500 mg tablet 500 mg PO BID 02/04/25 Unknown His tory Allergy/AdvReac Type Severity Reaction Status Date / Time No Known Allergies Allergy Verified 02/04/25 17:04 Social History household members: significant other Smoking Status: Former smoker substance use type: does not use ROS ROS ED ROS Narrative Constitutional: Positive for malaise. Negative for fever, chills. Eyes: Negative for visual change. ENT: Positive for sore throat. CVS: Negative for palpitations, chest pain, syncope. Respiratory: Positive for cough. Negative for shortness of breath. GI: Positive for nausea. No vomiting, abdominal pain, diarrhea. EXAM Physical Exam Narrative Exam Narrative: CONST: Patient sitting in no acute distress. EYES: Normal inspection. PERRL, EOMI, 2 beats rightward nystagmus. ENT: Normal posterior oropharynx, moist mucous membranes. NECK: Normal inspection. RESP: No respiratory distress, CTAB. CVS: Regular rate and rhythm, no murmur, no gallop. ABD: Soft and nontender, no guarding or rebound, nondistended. SKIN: Color normal, no rash, warm, dry, intact. EXTREMITIES: Normal appearance, no pedal edema. NEURO: Alert and answering questions appropriately. 5/5 upper and lower extremity strength, normal [id number] bilaterally, no truncal ataxia. PSYCH: Normal affect. Const Vital Signs: 02/04/25 17:05 02/04/25 19:03 02/04/25 20:11 Temperature 97.6 F L 98 F Temperature Source Oral Pulse Rate 72 81 82 Respiratory Rate 18 17 17 Blood Pressure 150/91 H 139/88 H 139/79 H Blood Pressure Mean 110 105 99 Pulse Ox 96 98 97 Oxygen Delivery Method Room Air Room Air Physical Exam Const Vital Signs: 02/04/25 17:05 02/04/25 19:03 02/04/25 20:11 Temperature 97.6 F L 98 F Temperature Source Oral Pulse Rate 72 81 82 Respiratory Rate 18 17 17 Blood Pressure 150/91 H 139/88 H 139/79 H Blood Pressure Mean 110 105 99 Pulse Ox 96 98 97 Oxygen Delivery Method Room Air Room Air MDM MDM MDM Narrative Medical decision making narrative: 54-year-old male reports episodes of BPPV when rolling over in bed today. He has history of similar. He states he also just feels tired and off but has no specific symptoms. He is awake and alert. Stable vital signs. GCS 15. He has a completely normal neurological exam with NIH of 0. He has slight rightward horizontal nystagmus. Since he is diabetic and does not know his blood sugars any BGT was checked and is unremarkable at 130. He was treated with meclizine and Zofran with improvement. His viral swab was negative for COVID/flu/RSV. I prescribed meclizine for home and discussed return precautions. He was discharged in stable condition. Lab Data Attestation: I reviewed the patient's lab results. Labs: Laboratory Results - last 24 hr 02/04/25 18:09 POC Glucose 130 H [facility] MDM Narrative Medical decision making narrative: 54-year-old male reports episodes of BPPV when rolling over in bed today. He has history of similar. He states he also just feels tired and off but has no specific symptoms. He is awake and alert. Stable (more content not included)... Normal [facility] deOrdered By: ED PROVIDER on 02-04-2025 Bedside Glucose (Misc Panel) 130 mg/dL High 74-106 [facility] Comment on above: MANAGEMENT OF PATIEN T CARE PER NURSING PROTOCOL Influenza virus A and B and SARS-CoV-2 (COVID-19) and Respiratory syncytial virus RNAOrdered By: Katt Bhatt on 02-04-2025 SARS-CoV-2 (COVID-19) RNA ELLA+probe Ql (Unsp spec) [facility] M100.678on 02-04-2025 M100.678 Pending SARS-CoV-2 (COVID 19) Negative INFLUENZA A Negative INFLUENZA B Negative RSV PCR Negative Normal [facility] Comment on above: Performed By: #### M 100.678 #### [facility] [address] [place], [address] Basic Metabolic Profile (BMP )on 12-22-2024 BUN/CRE 18.5 RATIO Normal 10-20 [facility] Comment on above: Performed By: #### L 100.0100, L503.6005, L500.2500 #### [facility] [address] [place], [address] CA,Total 9.2 mg/dL Normal 8.5-10.1 [facility] Comment on above: Performed By: #### L 100.0100, L503.6005, L500.2500 #### [facility] [address] [place], [address] Chloride [Moles/Vol] 102 mmol/L Normal 98-107 [facility] Comment on above: Performed By: #### L 100.0100, L503.6005, L500.2500 #### [facility] [address] [place], [address] CO2 [Moles/Vol] 32.0 mmol/L Normal 21.0-32.0 [facility] Comment on above: Performed By: #### L 100.0100, L503.6005, L500.2500 #### [facility] [address] [place], [place], [address] Creatinine [Mass/Vol] 0.86 mg/dL Normal 0.70-1.30 [facility] Comment on above: Result Comment: The validity of the calculated GFR GFRAA in patients over 70 years has not been determined. Clinical correlation is essential. Performed By: #### L 100.0100, L503.6005, L500.2500 #### [facility] [address] [place], [address] ECRCL 146.10 ml/min Normal [facility] Comment on above: Performed By: #### L 100.0100, L503.6005, L500.2500 #### [facility] [address] [place], [address] EST GFR - AA 119 mL/min Normal >60 [facility] Comment on above: Result Comment: Afri can Togolese GFR Calc Performed By: #### L 100.0100, L503.6005, L500.2500 #### [facility] [address] [place], [address] GAP 5 Normal 5-15 [facility] Comment on above: Performed By: #### L 100.0100, L503.6005, L500.2500 #### [facility] [address] [place], [address] GFR/1.73 sq M.predicted among non-blacks MDRD (S/P/Bld) [Vol rate/Area] 99 mL/min/{1.73_m2} Normal >60 [facility] Comment on above: Result Comment: Non- GFR Calc Performed By: #### L 100.0100, L503.6005, L500.2500 #### [facility] [address] [place], [address] Glucose [Mass/Vol] 128 mg/dL High 74-106 [facility] Comment on above: Result Comment: Fast ing Glucose result greater than or equal to 126 mg/dL suggests DIABETES MELLITUS per A.D.A. criteria. Performed By: #### L 100.0100, L503.6005, L500.2500 #### [facility] [address] [place], [address] Potassium [Moles/Vol] 4.0 mmol/L Normal 3.5-5.1 [facility] Comment on above: Performed By: #### L 100.0100, L503.6005, L500.2500 #### [facility] [address] [place], [address] Sodium [Moles/Vol] 139 mmol/L Normal 136-145 [facility] Comment on above: Performed By: #### L 100.0100, L503.6005, L500.2500 #### [facility] [address] [place], [address] Urea nitrogen [Mass/Vol] 16 mg/dL Normal 7-18 [facility] Comment on above: Performed By: #### L 100.0100, L503.6005, L500.2500 #### [facility] [address] [place], [address] CBC W/Diff, Automatedon 01-2 -2024 Absolute Lymph 1.92 X10 3/uL Normal 0.83-4.51 [facility] Comment on above: Performed By: #### L 100.0100, L503.6005, L500.2500 #### [facility] [address] [place], [address] Absolute Neut 8.4 X10 3/uL High 2.0-7.7 [facility] Comment on above: Performed By: #### L 100.0100, L503.6005, L500.2500 #### [facility] [address] [place], [address] Basophils/100 WBC (Bld) 0.3 % Normal 0-1 [facility] Comment on above: Performed By: #### L 100.0100, L503.6005, L500.2500 #### [facility] [address] [place], [address] Eosinophils/100 WBC (Bld) 3.0 % Normal 0-5 [facility] Comment on above: Performed By: #### L 100.0100, L503.6005, L500.2500 #### [facility] [address] [place], [address] Erythrocyte distribution width (RBC) [Ratio] 13.2 % Normal 11.6-14.6 [facility] Comment on above: Performed By: #### L 100.0100, L503.6005, L500.2500 #### [facility] [address] [place], [address] Hematocrit (Bld) [Volume fraction] 48.9 % Normal 40-54 [facility] Comment on above: Performed By: #### L 100.0100, L503.6005, L500.2500 #### [facility] [address] [place], [address] Hemoglobin (Bld) [Mass/Vol] 16.2 g/dL Normal 13.0-16.5 [facility] Comment on above: Performed By: #### L 100.0100, L503.6005, L500.2500 #### [facility] [address] [place], [address] IG% 0.700 Normal 0.0-0.9 [facility] Comment on above: Result Comment: IG% - Immature Granulocytes (promyelocytes, myelocytes and metamyelocytes) > 1% indicates that a LEFT SHIFT is Present. Performed By: #### L 100.0100, L503.6005, L500.2500 #### [facility] [address] [place], [address] Lymphocytes/100 WBC (Bld) 16.5 % Low 19-41 [facility] Comment on above: Performed By: #### L 100.0100, L503.6005, L500.2500 #### [facility] [address] [place], [address] MCH (RBC) [Entitic mass] 30.7 pg Normal 27.0-32.0 [facility] Comment on above: Performed By: #### L 100.0100, L503.6005, L500.2500 #### [facility] [address] [place], [address] MCHC (RBC) [Mass/Vol] 33.1 g/dL Normal 32-36 [facility] Comment on above: Performed By: #### L 100.0100, L503.6005, L500.2500 #### [facility] [address] [place], [address] MCV (RBC) [Entitic vol] 92.8 fL Normal 80-94 [facility] Comment on above: Performed By: #### L 100.0100, L503.6005, L500.2500 #### [facility] [address] [place], [address] Monocytes/100 WBC (Bld) 7.8 % Normal 0-10 [facility] Comment on above: Performed By: #### L 100.0100, L503.6005, L500.2500 #### [facility] [address] [place], [address] Neutrophils/100 WBC (Bld) 71.7 % High 47-70 [facility] Comment on above: Performed By: #### L 100.0100, L503.6005, L500.2500 #### [facility] [address] [place], [address] Nucleated RBC (Bld) [#/Vol] 0 10*3/uL Normal 0-5 [facility] Comment on above: Performed By: #### L 100.0100, L503.6005, L500.2500 #### [facility] [address] [place], [address] Platelet mean volume (Bld) [Entitic vol] 11.0 fL Normal 6.2-12.0 [facility] Comment on above: Performed By: #### L 100.0100, L503.6005, L500.2500 #### [facility] [address] [place], [address] Platelets (Bld) [#/Vol] 216 10*3/uL Normal 150-450 [facility] Comment on above: Performed By: #### L 100.0100, L503.6005, L500.2500 #### [facility] [address] [place], [address] RBC (Bld) [#/Vol] 5.27 10*6/uL Normal 4.6-6.2 [facility] Comment on above: Performed By: #### L 100.0100, L503.6005, L500.2500 #### [facility] [address] [place], [address] RDW SD 45.2 fl High 35.1-43.9 [facility] Comment on above: Performed By: #### L 100.0100, L503.6005, L500.2500 #### [facility] [address] [place], [address] WBC (Bld) [#/Vol] 11.7 10*3/uL High 4.4-11.0 [facility] Comment on above: Performed By: #### L 100.0100, L503.6005, L500.2500 #### [facility] [address] [place], [address] Lactic Acidon 12-22-2024 Lactate [Moles/Vol] 1.4 mmol/L Normal 0.4-1.9 [facility] Comment on above: Order Comment: Y Performed By: #### L 100.0100, L503.6005, L500.2500 #### [facility] [address] [place], [address] M100.677on 12-22-2024 M100.677 Negative Normal [facility] Comment on above: Performed By: #### M 100.678, M100.677 ####[facility] [id number] [place], [address] M100.678on 12-22-2024 M100.678 Pending SARS-CoV-2 (COVID 19) Negative INFLUENZA A Negative INFLUENZA B Negative RSV PCR Negative Normal [facility] Comment on above: Performed By: #### M 100.678, M100.677 ####[facility] [id number], [address] Soft Tissue Neck WITH Contra ston 12-22-2024 Soft Tissue Neck WITH Contrast [facility] [address] [place] [address] Soft Tissue Neck WITH Contrast MR#: [id number] Acct: [id number] Name: JAI GREEN Rep #: [id number] : 1970 M 54 From: Yuli Odom MD PCP: TREE Hawthorne Status: REG ER Study: Soft Tissue Neck WITH Contrast Date of Exam: 0 12/22/24 Exam# [id number] Ordering Dr: Norbert Maharaj DO [id number] STUDY: CT SOFT TISSUE NECK WITH CONTRAST REASON FOR EXAM: Male, 54 years old patient with questionable Wan''s angina. RADIATION DOSAGE (If Supplied By Facility): CTDIvol = ( 21.80 ) mGy, DLP = ( 697.26 ) mGycm TECHNIQUE: The patient was scanned in a multi-detector CT scanner. High resolution transaxial imaging was performed following intravenous administration of 75 mL of IV Isovue-370. Sagittal and coronal images were reconstructed. Individualized dose optimization techniques were used for this CT. COMPARISON: CT of the neck dated February 06, 2015. FINDINGS: Normal bilateral parotid glands. 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 Normal bilateral parapharyngeal spaces. Normal bilateral carotid spaces. Normal bilateral sublingual and submandibular glands and spaces. Normal visualized nasopharynx. Normal retropharyngeal space. Normal perivertebral space. Normal visualized bilateral faucial tonsils. The visualized tongue, tongue base and oropharynx are normal. The visualized cervical lymph nodes (levels I-) are within normal size limits, and maintain normal morphology. There is no demonstrated solid or cystic mass lesion. There is no abnormal contrast enhancement. Normal epiglottis, bilateral vallecula and hypopharynx. The pre-epiglottic and paraglottic adipose spaces are normal. Normal visualized bilateral piriform sinuses, aryepiglottic folds, vocal cords, and arytenoid-cricoid articulations. Normal subglottic trachea. Normal bilateral lobes of the thyroid gland. Normal visualized pulmonary apices. There is a small left maxillary sinus mucous retention cyst. Normal visualized cervical spine. CT/Soft Tissue Neck WITH Contrast IMPRESSION: No CT evidence to suggest a soft tissue abscess or other infection. Electronically Signed: Yuli Odom MD at 1:13 EST , CC: TREE Triana; Norbert Maharaj DO Ecg Technician: Signed Normal [facility] Absolute neutrophil countOrd ered By: Norbert Maharaj on 12-21-2024 Neutrophils (Bld) [#/Vol] 8.4 10*3/uL High 2.0-7.7 [facility] Basophil percentageOrdered B y: Norbert Maharaj on 12-21-2024 Basophils/100 WBC (Bld) 0.3 % 0-1 [facility] Blood urea nitrogen (BUN)/cr eatinine ratioOrdered By: Norbert Maharaj on 12-21-2024 Urea nitrogen/Creatinine [Mass ratio] 18.5 mg/mg 10-20 [facility] Carbon dioxide measurementOr dered By: Norbert Maharaj on 12-21-2024 CO2 [Moles/Vol] 32.0 mmol/L 21.0-32.0 [facility] Chloride measurementOrdered By: Norbert Maharaj on 12-21-2024 Chloride [Moles/Vol] 102 mmol/L 98-107 [facility] Emergency Department Summary on 12-21-2024 Emergency Department Summary [facility] Medical Records Department [address] [place] [address] Emergency Department Summary 12/21/24 MR#: [id number] Acct: [id number] Name: JAI GREEN Rep #: [id number] : 1970 54 From: Norbert Maharaj DO PCP: TREE Hawthorne Status:REG ER Location: ED HPI History of Present Illness Chief Complaint: Sore Throat Informant: patient Narrative Narrative: Patient is a 54-year-old male with past medical history of hypertension xve-lpeelgx-opitrlavx diabetes and pancreatitis. He states in the last 24 hours he has noticed a sore throat. He states that there has been no change to his voice and he denies any difficulty swallowing but simply states it is painful to do so. He reports has been taking yera-mps-ozpkwon Tylenol and Motrin without any symptom improvement. He denies any fevers. He states he has noticed some swelling around his chin in the last 12 hours or so. He denies difficulty breathing. He denies any known sick contacts. He does report mild congestion with this. However as his symptoms are not improving with pnux-vnu-gwcckfc medication and he is noticed increased swelling he had concern for infection and comes in for evaluation [facility] Medical History Pancreatitis No previous significant medical history Home Medications ???Medication ???Instructions ???Recorded ???Last Taken ???Type amlodipine 10 mg tablet (Norvasc) 10 mg PO DAILY #30 tabs 11/25/24 Unknown Rx erythromycin 5 mg/gram (0.5 %) eye 1 applic RIGHT EYE BID 7 days #50 11/25/24 Unknown Rx ointment grams losartan 100 1 tab PO DAILY 12/21/24 Unknown History mg-hydrochlorothiazide 25 mg tablet amoxicillin 875 mg-potassium 1 tab PO BID 7 days #14 tabs 12/22/24 Unknown Rx clavulanate 125 mg tablet Allergy/AdvReac Type Severity Reaction Status Date / Time No Known Allergies Allergy Verified 12/21/24 23:09 Social History household members: significant other Smoking Status: Former smoker substance use type: does not use ROS ROS ED Constitutional Constitutional ED: Denies chills or fever(s) Eyes Eyes: Denies change in vision ENT ENT ED: Reports rhinorrhea and sore throat Cardiovascular Cardiovascular: Denies chest pain Respiratory/Chest Respiratory/Chest: Denies cough or dyspnea Gastrointestinal Gastrointestinal: Denies abdominal pain, diarrhea, nausea or vomiting Genitourinary Genitourinary ED: Denies dysuria Musculoskeletal Musculoskeletal: Reports neck pain Integumentary Denies rash Neurologic Neurologic: Denies headache(s) Hematologic/Lymphatic Hematologic/Lymphatic: Denies easy bleeding or easy bruising Allergic/Immunologic Allergic/Immunologic ED: Denies mouth swelling or tongue swelling EXAM Physical Exam Const Vital Signs: 12/21/24 23:09 12/21/24 23:13 12/22/24 00:37 Temperature 98 F 98 F 98 F Temperature Source Oral Oral Oral Pulse Rate 91 97 97 Respiratory Rate 18 19 H 19 H Blood Pressure 139/86 H 139/86 H 136/74 H Blood Pressure Mean 103 103 94 Pulse Ox 95 97 92 Oxygen Delivery Method Room Air Room Air Room Air Oxygen Flow Rate (L/min) 12/22/24 01:00 12/22/24 01:01 12/22/24 01:06 Temperature 98.5 F Temperature Source Oral Pulse Rate 77 Respiratory Rate 18 Blood Pressure 116/67 Blood Pressure Mean 83 Pulse Ox 97 86 97 Oxygen Delivery Method Nasal Cannula Room Air Nasal Cannula Oxygen Flow Rate (L/min) 2 2 Positive well nourished, well developed and obese General Appearance ED: well developed; Negative for pallor Nutritional Appearance: obese HEENT Reports moist mucous membranes HEENT Narrative: Dried purulent discharge from bilateral naris There is mild erythema/cobblestoning the posterior pharynx consistent with sinus drainage. Trace to +1 times hypertrophy bilaterally with mild inflammation and swelling of the uvula. No hard palate petechiae. No trismus. No change in voice. No difficulty with secretions. No exudates noted Patient does have soft tissue swelling in the submental space without overlying erythema or warmth. No swelling is noted in the floor the mouth on internal exam. Eyes PERRL and EOMs intact bilaterally General Eye ED: Negative for scleral icterus Neck supple Neck Narrative: Soft tissue changes along the submental space as documented above Resp normal respiratory effort and clear to auscultation bilaterally Cardio regular rate and regular rhythm GI normal to inspection, nondistended, normoactive bowel sounds, non-tender, non-distended and no masses Auscultation: normoactive bowel sounds Palpation: soft Extremity normal to inspection Neuro oriented x3, CN's II-XII intact bila (more content not included)... Normal [facility] Eosinophil percentageOrdered By: Norbert Maharaj on 12-21-2024 Eosinophils/100 WBC (Bld) 3.0 % 0-5 [facility] Erythrocyte distribution wid th ratioOrdered By: Nrobert Maharaj on 12-21-2024 Erythrocyte distribution width (RBC) [Ratio] 13.2 % 11.6-14.6 [facility] Erythrocyte distribution wid th standard deviationOrdered By: Norbert Maharaj on 12-21-2024 Erythrocyte distribution width (RBC) [Entitic vol] 45.2 fL High 35.1-43.9 [facility] Estimated glomerular filtrat ion rate (GFR) AmericanOrdered By: Norbert Maharaj on 12-21-2024 Estimated GFR (MDRD) Amer 119 mL/min >60 [facility] Comment on above: GFR Calc Estimation of creatinine hilton aranceOrdered By: Norbert Maharaj on 12-21-2024 Estimated Creatinine Clearance Calc 146.10 ml/min [facility] Glomerular filtration rate ( GFR) estimationOrdered By: Norbert Maharaj on 12-21-2024 Estimated GFR (MDRD) Non-Af Amer 99 mL/min >60 [facility] Comment on above: Non- GFR Calc Glucose measurementOrdered B y: Norbert Maharaj on 12-21-2024 Glucose [Mass/Vol] 128 mg/dL High 74-106 [facility] Comment on above: Fasting Glucose resu lt greater than or equal to 126 mg/dL suggests DIABETES MELLITUS per A.D.A. criteria. Hematocrit Auto (Bld) [Volum e fraction]Ordered By: Norbert Maahraj on 12-21-2024 Hematocrit (Bld) [Volume fraction] 48.9 % 40-54 [facility] Hemoglobin measurementOrdere d By: Norbert Maharaj on 12-21-2024 Hemoglobin (Bld) [Mass/Vol] 16.2 g/dL 13.0-16.5 [facility] Immature granulocytes/100 WB C Auto (Bld)Ordered By: Norbert Maharaj on 12-21-2024 Immature granulocytes/100 WBC (Bld) 0.700 % 0.0-0.9 [facility] Comment on above: IG% - Immature Granu locytes (promyelocytes, myelocytes and metamyelocytes) > 1% indicates that a LEFT SHIFT is Present. Influenza virus A and B and SARS-CoV-2 (COVID-19) and Respiratory syncytial virus RNAOrdered By: Norbert Maharaj on 12-21-2024 SARS-CoV-2 (COVID-19) RNA ELLA+probe Ql (Unsp spec) [facility] Lactic acid measurementOrder ed By: Norbert Maharaj on 12-21-2024 Lactate [Moles/Vol] 1.4 mmol/L 0.4-2.0 [facility] Lymphocytes Auto (Unsp spec) [#/Vol]Ordered By: Norbert Maharaj on 12-21-2024 Lymphocytes (Bld) [#/Vol] 1.92 10*3/uL 0.83-4.51 [facility] Lymphocytes/100 WBC Auto (Un sp spec)Ordered By: Norbert Maharaj on 12-21-2024 Lymphocytes/100 WBC (Bld) 16.5 % Low 19-41 [facility] MCV (mean corpuscular volume ) determinationOrdered By: Norbert Maharaj on 12-21-2024 MCV (RBC) [Entitic vol] 92.8 fL 80-94 [facility] Mean corpuscular hemoglobin (MCH) determinationOrdered By: Norbert Maharaj on 12-21-2024 MCH (RBC) [Entitic mass] 30.7 pg 27.0-32.0 [facility] Mean corpuscular hemoglobin concentration (MCHC) determinationOrdered By: Norbert Maharaj on 12-21-2024 MCHC (RBC) [Mass/Vol] 33.1 g/dL 32-36 [facility] Mean platelet volume determi nationOrdered By: Norbert Maharaj on 12-21-2024 Platelet mean volume (Bld) [Entitic vol] 11.0 fL 6.2-12.0 [facility] Monocyte percentageOrdered B y: Norbert Maharaj on 12-21-2024 Monocytes/100 WBC (Bld) 7.8 % 0-10 [facility] Neutrophil percentageOrdered By: Norbert Maharaj on 12-21-2024 Neutrophils/100 WBC (Bld) 71.7 % High 47-70 [facility] Nucleated red blood cell per centageOrdered By: Norbert Maharaj on 12-21-2024 Nucleated RBC/100 WBC (Bld) [Ratio] 0 % 0-5 [facility] Platelet countOrdered By: Brionna Maharaj on 12-21-2024 Platelets (Bld) [#/Vol] 216 10*3/uL 150-450 [facility] Potassium measurementOrdered By: Norbert Maharaj on 12-21-2024 Potassium [Moles/Vol] 4.0 mmol/L 3.5-5.1 [facility] RBC Auto (Bld) [#/Vol]Ordere d By: Norbert Maharaj on 12-21-2024 RBC (Bld) [#/Vol] 5.27 10*6/uL 4.6-6.2 [facility] S. pyogenes rRNA Probe Ql (T hroat)Ordered By: Norbert Maharaj on 12-21-2024 Streptococcus pyogenes (PCR) [facility] Serum anion gap measurementO rdered By: Norbert Maharaj on 12-21-2024 Anion gap [Moles/Vol] 5 mmol/L 5-15 [facility] Serum or plasma calcium violet urement (mass/volume)Ordered By: Norbert Maharaj on 12-21-2024 Calcium [Mass/Vol] 9.2 mg/dL 8.5-10.1 [facility] Serum or plasma creatinine m easurement (mass/volume)Ordered By: Norbert Maharaj on 12-21-2024 Creatinine [Mass/Vol] 0.86 mg/dL 0.70-1.30 [facility] Comment on above: The validity of the calculated GFR & GFRAA in patients over 70 years has not been determined. Clinical correlation is essential. Serum or plasma urea nitroge n measurement (mass/volume)Ordered By: Norbert Maharaj on 12-21-2024 Urea nitrogen [Mass/Vol] 16 mg/dL 7-18 [facility] Sodium levelOrdered By: Kyrie Maharaj on 12-21-2024 Sodium [Moles/Vol] 139 mmol/L 136-145 [facility] White blood cell (WBC) count Ordered By: Norbert Maharaj on 12-21-2024 WBC (Bld) [#/Vol] 11.7 10*3/uL High 4.4-11.0 [facility] Emergency Department Summary on 11-25-2024 Emergency Department Summary [facility] Medical Records Department [address] [place] [address] Emergency Department Summary 11/25/24 MR#: [id number] Acct: [id number] Name: JAI GREEN Rep #: [id number] : 1970 54 From: Victor Manuel Frank DO PCP: Care Physician,No Primary Status:PRE ER Location: ED HPI History of Present Illness Chief Complaint: Eye Problem [facility] Medical History Pancreatitis No previous significant medical history Home Medications ???Medication ???Instructions ???Recorded ???Last Taken ???Type amlodipine 10 mg tablet (Norvasc) 10 mg PO DAILY #30 tabs 11/25/24 Unknown Rx erythromycin 5 mg/gram (0.5 %) eye 1 applic RIGHT EYE BID 7 days #50 11/25/24 Unknown Rx ointment grams Allergy/AdvReac Type Severity Reaction Status Date / Time No Known Allergies Allergy Verified 11/25/24 20:42 Social History household members: significant other Smoking Status: Current every day smoker tobacco type: cigarettes substance use type: does not use EXAM Physical Exam Const Vital Signs: 11/25/24 20:42 Temperature 96.5 F L Temperature Source Oral Pulse Rate 96 Respiratory Rate 15 Blood Pressure 196/106 H Blood Pressure Mean 136 Pulse Ox 97 Oxygen Delivery Method Room Air [facility] Narrative Medical decision making narrative: HISTORY OF PRESENT ILLNESS: 54-year-old male presents with swelling bilateral eyes. The patient is not wear contact lenses. Notes discharge from his right eye. Notes itching as well. No recent sick contacts, no recent exposures. REVIEW OF SYSTEMS: Pertinent positives: Right eye redness Pertinent negatives: Cough, congestion PHYSICAL EXAM: Nursing triage notes reviewed, Vital signs reviewed Constitutional: please see [facility] HENT: MMM Eyes: Pupils equal round and reactive to light, Extraocular muscles intact, visual obrien intact, visual acuity 20/30 bilaterally, right sided conjunctival injection, yellow discharge noted in right eye Neck: No stridor, no JVD, full neck ROM Lungs: Clear to auscultation, No wheezing or rales. No increased work of breathing, no conversational dyspnea, no accessory muscle use, no nasal flaring. No respiratory distress noted Heart: Regular rate and rhythm, No murmurs, No rubs and No gallops, 2+ distal pulses (radial, femoral, posterior tibial) in all extremities Abdomen: Soft, there is no tenderness, rigidity, rebound or guarding, no obvious peritoneal signs, no palpable pulsatile abdominal masses, no auscultated abdominal bruit : No CVAT Extremities: No edema Neuro: No new focal neurological deficits, cranial nerves II through XII intact, 5/5 strength in all present extremities. Intact sensation to light touch in all present extremities, 2+ reflexes bilateral patella tendons. Skin: No rash or lesions noted MEDICAL DECISION MAKING: Chief Complaint: Eye swelling, itching, drainage External records reviewed: Reviewed prior ED visits Factors affecting care: none Social determinants of health: none History obtained from others: none Consults: none [facility] Narrative: Patient was initially hypertensive otherwise afebrile and nontoxic-appearing. Exam with acute right-sided conjunctivitis. Visual acuity intact. There is no clinical evidence of dacryocystitis, hordeolum, or chalazion. The patient no pain with extraocular muscle movements, proptosis suggest orbital cellulitis. No evidence of periorbital cellulitis either. Gave erythromycin ointment. Patient was noted to be hypertensive so was started on Norvasc. Patient notes he gets insurance on 28 November I encouraged her to follow with PCP. PCP provided. Ophthalmology follow-up provided as well. The patient and/or family, caregivers express understanding. The patient and/or family, caregivers agrees with the plan. Shared decision making: I will have a discussion with the patient and or visitors regarding risk/benefits of further testing or admission. They will be made aware of of the risk/benefits inherent in this decision they will be given the opportunity to voice understanding. Total critical care time today provided was at least 0 minutes. This excludes separately billable procedures. Critical care time (if documented) is secondary to the patient having high probability of clinically significant/life threatening deterioration in the patient's condition which required my urgent intervention. Impression: 1. Acute bacterial conjunctivitis 2. Hypertension Dispo: Discharge home This note was generated with [employer] dictation software. It may contain incorrect words, spelling, and punctuation that were not noted in review of the chart prior to signi (more content not included)... Normal [facility] Emergency Department Summary on 10-27-2024 Emergency Department Summary [facility] Medical Records Department [address] [place] [place] [address] Emergency Department Summary 10/27/24 MR#: [id number] Acct: [id number] Name: JAI GREEN Rep #: [id number] : 1970 53 From: Marni MORIN PCP: Care Physician,No Primary Status:DEP ER Location: ED HPI History of Present Illness Chief Complaint: Eye Problem Narrative Narrative: Patient presenting today with concerns for right eye conjunctivitis. He reports that this afternoon at work he began having increased yellow-colored drainage to the right eye. He had conjunctivitis about a month ago which presented similarly. He was given antibiotic ointment at that time which seemed to help. He denies any pain to his eye, decreased visual acuity, or foreign body to the eye. He does not wear contact lenses. [facility] Medical History Pancreatitis No previous significant medical history Home Medications ???Medication ???Instructions ???Recorded ???Last Taken ???Type amoxicillin 875 mg-potassium 1 tab PO BID 7 days #14 tabs 05/01/23 Unknown Rx clavulanate 125 mg tablet oxycodone-acetaminophen 5 mg-325 1 tab PO Q6H PRN PRN Pain 3 days 05/02/23 Unknown Rx mg tablet #12 TABLETS amoxicillin 875 mg-potassium 1 tab PO BID #20 tabs 07/28/24 Unknown Rx clavulanate 125 mg tablet benzonatate 100 mg capsule 200 mg (2 x 100 mg) PO TID PRN PRN 08/13/24 Unknown Rx Cough #20 CAPSULES albuterol sulfate 90 mcg/actuation 1 - 2 puff inhalation Q4H PRN PRN 08/23/24 Unknown Rx aerosol inhaler (Ventolin HFA) Wheezing ##1 guaifenesin 600 mg tablet, 600 mg PO Q12H PRN congestion #60 08/23/24 Unknown Rx extended release 12 hr (Mucinex) tabs Allergy/AdvReac Type Severity Reaction Status Date / Time No Known Allergies Allergy Verified 10/27/24 17:35 Social History household members: significant other Smoking Status: Current every day smoker tobacco type: cigarettes substance use type: does not use ROS ROS ED Constitutional Constitutional ED: Denies chills or fever(s) Eyes Eyes: Reports discharge from eye(s); Denies change in vision ENT ENT ED: Reports discharge from eye(s) Cardiovascular Cardiovascular: Denies chest pain Respiratory/Chest Respiratory/Chest: Denies cough or dyspnea Gastrointestinal Gastrointestinal: Denies abdominal pain, nausea or vomiting Musculoskeletal Musculoskeletal: Denies arthralgias or myalgias Integumentary Denies rash Neurologic Neurologic: Denies weakness EXAM Physical Exam Const Vital Signs: 10/27/24 17:36 Temperature 97.8 F Temperature Source Temporal Pulse Rate 78 Respiratory Rate 18 Blood Pressure 183/94 H Blood Pressure Mean 123 Pulse Ox 94 Oxygen Delivery Method Room Air Positive well nourished, well developed and no apparent distress General Appearance ED: well developed HEENT Reports normocephalic and head/scalp atraumatic Mouth ED: Yes moist mucous membranes normal Eyes PERRL and EOMs intact bilaterally Eyes Narrative: No periorbital edema/erythema, slight right conjunctival injection. Minimal purulent discharge in the corner of the right eye. Neck full ROM and supple Chest Wall inspection of chest normal Resp normal respiratory effort and clear to auscultation bilaterally Cardio regular rate and regular rhythm GI soft to palpation, non-tender, non-distended and no masses Back/Spine normal ROM and normal to inspection Extremity normal to inspection and full ROM Neuro oriented x3, CN's II-XII intact bilaterally, moves all extremities, no focal motor deficits and no sensory deficits noted Sensorium / Orientation: awake and alert Psych mental status grossly normal and thought process normal Skin no rashes or lesions noted and no wounds MDM MDM MDM Narrative Medical decision making narrative: Patient presenting today with concerns for pinkeye. He reports slight redness and discharge to the right eye that started today. Visual acuity is intact. He does not wear contacts. He had pinkeye a month ago that resolved after antibiotic ointment. Exam today is consistent with conjunctivitis. He has right-sided conjunctival injection and minimal purulent discharge in the corner of the right eye. He will be placed on erythromycin ointment and will be referred to ophthalmology. Return instructions discussed and patient discharged home in stable condition. Attending note: I have personally performed a face to face assessment of the patient and have reviewed the COLEMAN note. I personally made/approved the management plan and take responsibility for the patient management. I performed a substantive portion of the visit including a (more content not included)... Normal [facility] Emergency Department Summary on 09-08-2024 Emergency Department Summary [facility] Medical Records Department [address] [place] [address] Emergency Department Summary 09/08/24 MR#: [id number] Acct: [id number] Name: JAI GREEN Rep #: [id number] : 1970 53 From: Burton Maki MD PCP: Care Physician,No Primary Status:[facility] ER Location: ED HPI History of Present Illness Chief Complaint: Eye Problem Informant: patient Onset/Context/Timing Location: Bilateral Eyes Onset: Today and Yesterday Context: Gradual Onset Timing: Continuous Current Severity: Mild Maximum Severity: Mild Associated Symptoms Associated Symptoms - Eyes: Drainage, Eyelid swelling and Redness History of injury: No Visual correction: None Narrative Narrative: 53-year-old male history of hypertension. Currently has no primary care physician but is getting 1 next week. Complains of bilateral eyes swelling with discharge since last night. He does not wear glasses nor contacts. No prior eye surgery. Denies any eye problems. Denies any recent trauma. Denies any chemicals in his eyes. Said they been watering more. Denies recent illness. Prior similar symptoms: No Recent Illness/Hospitalization: No PFSH PFSH Medical History Pancreatitis No previous significant medical history Home Medications ???Medication ???Instructions ???Recorded ???Last Taken ???Type amoxicillin 875 mg-potassium 1 tab PO BID 7 days #14 tabs 05/01/23 Unknown Rx clavulanate 125 mg tablet oxycodone-acetaminophen 5 mg-325 1 tab PO Q6H PRN PRN Pain 3 days 05/02/23 Unknown Rx mg tablet #12 TABLETS amoxicillin 875 mg-potassium 1 tab PO BID #20 tabs 07/28/24 Unknown Rx clavulanate 125 mg tablet benzonatate 100 mg capsule 200 mg (2 x 100 mg) PO TID PRN PRN 08/13/24 Unknown Rx Cough #20 CAPSULES albuterol sulfate 90 mcg/actuation 1 - 2 puff inhalation Q4H PRN PRN 08/23/24 Unknown Rx aerosol inhaler (Ventolin HFA) Wheezing ##1 guaifenesin 600 mg tablet, 600 mg PO Q12H PRN congestion #60 08/23/24 Unknown Rx extended release 12 hr (Mucinex) tabs Allergy/AdvReac Type Severity Reaction Status Date / Time No Known Allergies Allergy Verified 09/08/24 10:41 Social History household members: significant other Smoking Status: Current every day smoker tobacco type: cigarettes substance use type: does not use ROS ROS ED ROS Narrative Denies recent illness. Bilateral eyes watering and drainage. Mild lid swelling. Constitutional Constitutional ED: Denies chills or fever(s) Eyes Eyes: Reports other Details: Bilateral of swelling, watering and discharge. ; Denies blurry vision ENT ENT ED: Denies ear pain Cardiovascular Cardiovascular: Denies chest pain Respiratory/Chest Respiratory/Chest: Denies cough Gastrointestinal Gastrointestinal: Denies abdominal pain Genitourinary Genitourinary ED: Denies dysuria Musculoskeletal Musculoskeletal: Denies arthralgias Integumentary Denies abscess Neurologic Neurologic: Denies headache(s) Psychiatric Psychiatric: Denies anxiety Endocrine Endocrinology: Denies polydipsia Hematologic/Lymphatic Hematologic/Lymphatic: Denies easy bleeding Allergic/Immunologic Allergic/Immunologic ED: Denies mouth swelling EXAM Physical Exam Narrative Exam Narrative: 53-year-old male no acute distress. Vital signs stable afebrile. Blood pressure elevated 173/106. He is a history of hypertension. H EENT exam pupils round react light. Extra motions are intact. Both eyes are injected. Both the upper and lower lids are mildly swollen. Extra motions are intact. No pain. Mild swelling. Mild proptosis. There is increased watering. Injection bilaterally. Mild discharge. No crusting. No facial swelling or trauma. No preauricular lymphadenopathy. Neck nontender no lymphadenopathy. Lungs clear to auscultation. Heart regular rhythm no murmur. Abdomen soft nontender. Moving all 4 extremities. He is awake and alert. Const Vital Signs: 09/08/24 10:41 Temperature 97.7 F L Temperature Source Oral Pulse Rate 71 Respiratory Rate 18 Blood Pressure 173/106 H Blood Pressure Mean 128 Pulse Ox 93 Oxygen Delivery Method Room Air Positive well nourished and well developed; Negative for cachectic, contractures or unkempt General Appearance ED: well developed and NAD; Negative for unkempt, cachectic or contractures Nutritional Appearance: Negative for cachectic HEENT atraumatic; Negative for trauma or tenderness Nose: nares normal; Negative for external nose normal Eyes Eyes Narrative: Bilateral eyes watering. Mild upper and lower lid swelling bilaterally. Mild discharge. Unremarkable pharynx moving all 4 extremities. Neck no lymphadenopathy, supple and no JVD General: Negative for tend (more content not included)... Normal [facility] Emergency Department Summary on 08-23-2024 Emergency Department Summary [facility] Medical Records Department [address] [place] [address] Emergency Department Summary 08/23/24 MR#: [id number] Acct: [id number] Name: JAI GREEN Rep #: [id number] : 1970 53 From: Rio Dorman PCP: Care Physician,No Primary Status:DEP ER Location: ED HPI History of Present Illness Chief Complaint: Shortness of Breath Informant: patient and spouse/S.O. Narrative Narrative: Presents for evaluation with reported dyspnea overnight. Recent bronchitis seen by myself 2 days ago. He states overnight woke up 3 times gasping for air. No other reports he has had snoring and apneic events prior to his illness. Denies chest pains. With awakening denies any symptoms. Review of my records [address] angio chest was negative. COVID and flu were negative x 2 with recent workup. Labs were stable. Prior similar symptoms: Yes PFSH PFSH Medical History Pancreatitis No previous significant medical history Home Medications ???Medication ???Instructions ???Recorded ???Last Taken ???Type amoxicillin 875 mg-potassium 1 tab PO BID 7 days #14 tabs 05/01/23 Unknown Rx clavulanate 125 mg tablet oxycodone-acetaminophen 5 mg-325 1 tab PO Q6H PRN PRN Pain 3 days 05/02/23 Unknown Rx mg tablet #12 TABLETS amoxicillin 875 mg-potassium 1 tab PO BID #20 tabs 07/28/24 Unknown Rx clavulanate 125 mg tablet benzonatate 100 mg capsule 200 mg (2 x 100 mg) PO TID PRN PRN 08/13/24 Unknown Rx Cough #20 CAPSULES albuterol sulfate 90 mcg/actuation 1 - 2 puff inhalation Q4H PRN PRN 08/23/24 Unknown Rx aerosol inhaler (Ventolin HFA) Wheezing ##1 guaifenesin 600 mg tablet, 600 mg PO Q12H PRN congestion #60 08/23/24 Unknown Rx extended release 12 hr (Mucinex) tabs Allergy/AdvReac Type Severity Reaction Status Date / Time No Known Allergies Allergy Verified 08/23/24 09:06 Social History household members: significant other Smoking Status: Current every day smoker tobacco type: cigarettes substance use type: does not use ROS ROS ED Constitutional Constitutional ED: Denies chills, fever(s) or sweats Eyes Eyes: Denies change in vision ENT ENT ED: Denies dysphagia or sore throat Cardiovascular Cardiovascular: Reports paroxysmal nocturnal dyspnea; Denies chest pain, leg edema, palpitations or racing heartbeat Respiratory/Chest Respiratory/Chest: Reports dyspnea and paroxysmal nocturnal dyspnea; Denies cough or dyspnea on exertion Gastrointestinal Gastrointestinal: Denies abdominal pain, diarrhea, nausea or vomiting Genitourinary Genitourinary ED: Denies dysuria, hematuria or urinary frequency Musculoskeletal Musculoskeletal: Denies back pain, extremity pain or neck pain Integumentary Denies rash or wounds Neurologic Neurologic: Denies headache(s), paresthesias or weakness EXAM Physical Exam Const Vital Signs: 08/23/24 09:07 08/23/24 09:33 Temperature 97.7 F L Temperature Source Oral Pulse Rate 76 Respiratory Rate 22 H Respiratory Effort Short of Breath Blood Pressure 174/95 H Blood Pressure Mean 121 Pulse Ox 91 Oxygen Delivery Method Room Air Room Air Positive well nourished and well developed Constitutional Narrative: BMI 43. General Appearance ED: well developed and NAD HEENT Reports moist mucous membranes normocephalic and atraumatic Eyes EOMs intact bilaterally and conjunctivae normal General Eye ED: Yes normal appearance of both eyes Neck no lymphadenopathy and supple General: Negative for tenderness Chest Wall Chest: Negative for tenderness Resp normal respiratory effort and normal air movement Effort and Inspection: symmetric chest movement; Negative for respiratory distress Cardio regular rate, regular rhythm and no murmurs Peripheral Pulses: pulses 2+ throughout GI normal to inspection, nondistended, normoactive bowel sounds and non-tender Palpation: Negative for guarding or rebound tenderness present Back/Spine no CVA tenderness and no thoracic nor lumbar tenderness Extremity normal to inspection General Extremety ED: Negative for edema or tenderness General Extremity: Negative for edema Neuro oriented x3 and no sensory deficits noted Sensorium / Orientation: awake and alert Skin no rashes or lesions noted and no wounds MDM MDM MDM Narrative Medical decision making narrative: Interventions / MDM: Differential diagnosis: Obstructive sleep apnea, bronchitis Diagnosis considered but do not suspect: N/A My EKG interpretation: Sinus rate of 67, no ST or T wave changes. Imaging independently reviewed and interpreted by myself: N/A External documents reviewed: N/A Test considered but not ordered: Reordered lab work matthias (more content not included)... Normal [facility] 12 Lead EKGon 08-21-2024 12 Lead EKG [facility] Cardiovascular Services [address] [place] [address] 12 Lead EKG 08/21/24 1756 MR#: [id number] Acct: [id number] Name: JAI GREEN Rep #: [id number] : 1970 53 From: Arnaldo Waters MD Attending Dr: Status: DEP ER Ordering Dr: LeRio DO Date: 08/21/24 Location: ED Sex: M C Admitted: Test Reason : SOB Blood Pressure : / mmHG Vent. Rate : 066 BPM Atrial Rate : 066 BPM P-R Int : 160 ms QRS Dur : 084 ms QT Int : 422 ms P-R-T Axes : 030 -05 034 degrees QTc Int : 442 ms Normal sinus rhythm Normal ECG Confirmed by Arnaldo Waters ([id number]), news video editor EDGARDO ODOM ([id number]) on 08/22/2024 10:33:53 AM Referred By: Confirmed By:Arnaldo Waters 08/22/24 1033 Date Arnaldo Waters MD CC: Dr. Rio Norris DO; No Primary Care Physician Signed Normal [facility] Basic Metabolic Profile (BMP )on 08-21-2024 BUN/CRE 19.2 RATIO Normal 10-20 [facility] Comment on above: Performed By: #### L 500.2500, L100.0100 ####[facility] [address] [place], [address] CA,Total 9.1 mg/dL Normal 8.5-10.1 [facility] Comment on above: Performed By: #### L 500.2500, L100.0100 ####[facility] [address] [place], [address] Chloride [Moles/Vol] 106 mmol/L Normal 98-107 [facility] Comment on above: Performed By: #### L 500.2500, L100.0100 ####[facility] [address] [place], [address] CO2 [Moles/Vol] 31.0 mmol/L Normal 21.0-32.0 [facility] Comment on above: Performed By: #### L 500.2500, L100.0100 ####[facility] [address] [place], [address] Creatinine [Mass/Vol] 0.78 mg/dL Normal 0.70-1.30 [facility] Comment on above: Result Comment: The validity of the calculated GFR GFRAA in patients over 70 years has not been determined. Clinical correlation is essential. Performed By: #### L 500.2500, L100.0100 ####[facility] [address] [place], [address] ECRCL 160.65 ml/min Normal [facility] Comment on above: Performed By: #### L 500.2500, L100.0100 ####[facility] [address] [place], [address] EST GFR - AA 134 mL/min Normal >60 [facility] Comment on above: Result Comment: Afri can Togolese GFR Calc Performed By: #### L 500.2500, L100.0100 ####[facility] [address] [place], [address] GAP 3 Low 5-15 [facility] Comment on above: Performed By: #### L 500.2500, L100.0100 ####[facility] [address] [place], [address] GFR/1.73 sq M.predicted among non-blacks MDRD (S/P/Bld) [Vol rate/Area] 111 mL/min/{1.73_m2} Normal >60 [facility] Comment on above: Result Comment: Non- GFR Calc Performed By: #### L 500.2500, L100.0100 ####[facility] [address] [place], [address] Glucose [Mass/Vol] 207 mg/dL High 74-106 [facility] Comment on above: Result Comment: Gluc ose result greater than or equal to 200 mg/dL suggests DIABETES MELLITUS per A.D.A. criteria. Performed By: #### L 500.2500, L100.0100 ####[facility] [address] [place], [address] Potassium [Moles/Vol] 4.1 mmol/L Normal 3.5-5.1 [facility] Comment on above: Performed By: #### L 500.2500, L100.0100 ####[facility] [address] [place], [address] Sodium [Moles/Vol] 140 mmol/L Normal 136-145 [facility] Comment on above: Performed By: #### L 500.2500, L100.0100 ####[facility] [address] [place], [address] Urea nitrogen [Mass/Vol] 15 mg/dL Normal 7-18 [facility] Comment on above: Performed By: #### L 500.2500, L100.0100 ####[facility] [address] [place], [address] CBC W/Diff, Automatedon 07-30 Absolute Lymph 2.04 X10 3/uL Normal 0.83-4.51 [facility] Comment on above: Performed By: #### L 500.2500, L100.0100 ####[facility] [address] [place], [address] Absolute Neut 4.4 X10 3/uL Normal 2.0-7.7 [facility] Comment on above: Performed By: #### L 500.2500, L100.0100 ####[facility] [address] [place], [address] Basophils/100 WBC (Bld) 0.3 % Normal 0-1 [facility] Comment on above: Performed By: #### L 500.2500, L100.0100 ####[facility] [address] [place], [address] Eosinophils/100 WBC (Bld) 4.1 % Normal 0-5 [facility] Comment on above: Performed By: #### L 500.2500, L100.0100 ####[facility] [address] [place], [address] Erythrocyte distribution width (RBC) [Ratio] 14.2 % Normal 11.6-14.6 [facility] Comment on above: Performed By: #### L 500.2500, L100.0100 ####[facility] [address] [place], [address] Hematocrit (Bld) [Volume fraction] 51.5 % Normal 40-54 [facility] Comment on above: Performed By: #### L 500.2500, L100.0100 ####[facility] [address] [place], [address] Hemoglobin (Bld) [Mass/Vol] 16.6 g/dL High 13.0-16.5 [facility] Comment on above: Performed By: #### L 500.2500, L100.0100 ####[facility] [address] [place], [address] IG% 0.500 Normal 0.0-0.9 [facility] Comment on above: Result Comment: IG% - Immature Granulocytes (promyelocytes, myelocytes and metamyelocytes) > 1% indicates that a LEFT SHIFT is Present. Performed By: #### L 500.2500, L100.0100 ####[facility] [address] [place], [address] Lymphocytes/100 WBC (Bld) 27.6 % Normal 19-41 [facility] Comment on above: Performed By: #### L 500.2500, L100.0100 ####[facility] [address] [place], [address] MCH (RBC) [Entitic mass] 29.6 pg Normal 27.0-32.0 [facility] Comment on above: Performed By: #### L 500.2500, L100.0100 ####[facility] [address] [place], [address] MCHC (RBC) [Mass/Vol] 32.2 g/dL Normal 32-36 [facility] Comment on above: Performed By: #### L 500.2500, L100.0100 ####[facility] [address] [place], [address] MCV (RBC) [Entitic vol] 92.0 fL Normal 80-94 [facility] Comment on above: Performed By: #### L 500.2500, L100.0100 ####[facility] [address] [place], [address] Monocytes/100 WBC (Bld) 7.7 % Normal 0-10 [facility] Comment on above: Performed By: #### L 500.2500, L100.0100 ####[facility] [address] [place], [address] Neutrophils/100 WBC (Bld) 59.8 % Normal 47-70 [facility] Comment on above: Performed By: #### L 500.2500, L100.0100 ####[facility] [address] [place], [address] Nucleated RBC (Bld) [#/Vol] 0 10*3/uL Normal 0-5 [facility] Comment on above: Performed By: #### L 500.2500, L100.0100 ####[facility] [address] [place], [address] Platelet mean volume (Bld) [Entitic vol] 10.9 fL Normal 6.2-12.0 [facility] Comment on above: Performed By: #### L 500.2500, L100.0100 ####[facility] [address] [place], [address] Platelets (Bld) [#/Vol] 158 10*3/uL Normal 150-450 [facility] Comment on above: Performed By: #### L 500.2500, L100.0100 ####[facility] [address] [place], [address] RBC (Bld) [#/Vol] 5.60 10*6/uL Normal 4.6-6.2 [facility] Comment on above: Performed By: #### L 500.2500, L100.0100 ####[facility] [address] [place], [address] RDW SD 47.8 fl High 35.1-43.9 [facility] Comment on above: Performed By: #### L 500.2500, L100.0100 ####[facility] [address] [place], [address] WBC (Bld) [#/Vol] 7.4 10*3/uL Normal 4.4-11.0 [facility] Comment on above: Performed By: #### L 500.2500, L100.0100 ####[facility] [address] [place], [address] CTA Chest W/WO Contraston CTA Chest W/WO Contrast [facility] Imaging Services [address] [place] [address] CTA Chest W/WO Contrast MR#: [id number] Acct: [id number] Name: PETERJAI MARCELL Rep #: [id number] : 1970 M 53 From: Rogers Taylor DO PCP: Care Physician,No Primary Status: [facility] ER Study: CTA Chest W/WO Contrast Date of Exam: 08/21/24 Exam# [id number] Ordering Dr: Rio Norris DO [id number] STUDY: CTA CHEST REASON FOR EXAM: Male, 53 years old. hypoxia RADIATION DOSAGE (If Supplied By Facility): CTDIvol = ( 48.50 ) mGy, DLP = ( 775.68 ) mGycm TECHNIQUE: The examination was performed with the intravenous administration of IV 100mL Isovue-370. Post-processing of the angiographic images was performed, with multiplanar reformation and 3D reconstruction. The protocol utilizes one or more of the following dose reduction techniques: automated exposure control, adjustment of mA and/or kV according to patient size,and/or use of iterative reconstruction technique. COMPARISON: FINDINGS: Normal enhancement of the main pulmonary artery and right and left pulmonary arteries. Normal enhancement of the bilateral peripheral pulmonary arteries. There is no demonstrated pulmonary embolism. Normal thoracic aorta and visualized great vessels. There is no demonstrated aortic dissection. Normal heart and pericardium. Normal mediastinum. Normal hilar regions. Normal visualized trachea and bronchi. The lungs are well expanded. Normal pulmonary parenchyma. Normal pleura. Normal chest wall structures. Old right ninth rib fracture. Normal visualized upper abdomen. CT/CTA Chest W/WO Contrast IMPRESSION: No demonstrated pulmonary embolism or arterial dissection. Electronically Signed: Rogers Taylor DO at 20:07 EDT Reading Location ID and State: [facility] / [place] Tel [phone], Service support , CC: Dr. Rio Norris DO; No Primary Care Physician Ecg Technician: Signed Normal [facility] Chest PA and Lateralon 08-21 Chest PA and Lateral [facility] Imaging Services [address] [place] [address] [id number] Chest PA and Lateral MR#: [id number] Acct: [id number] Name: JAI GREEN Rep #: [id number] : 1970 M 53 From: Rogers Taylor DO PCP: Care Physician,No Primary Status: [facility] ER Study: Chest PA and Lateral Date of Exam: 08/21/24 Exam# [id number] Ordering Dr: Rio Norris DO [id number] INDICATION: cough EXAMINATION/TECHNIQUE: X-RAY - XR Chest 2 Views COMPARISON: August 13, 2024 FINDINGS: LINES/DEVICES: None. LUNGS: No consolidation, edema or effusion. No pneumothorax. MEDIASTINUM AND CARDIOVASCULAR STRUCTURES: Cardiac silhouette not enlarged. Central airways and mediastinal contour are unremarkable. BONES AND SOFT TISSUES: Unremarkable. RAD/Chest PA and Lateral IMPRESSION: No radiographic evidence of acute cardiopulmonary disease. Electronically Signed: Rogers Taylor DO at 18:33 EDT Reading Location ID and State: [facility] / [place] Tel [phone], Service support , CC: Dr. Rio Norris DO; No Primary Care Physician Ecg Technician: Signed Normal [facility] Emergency Department Summary on 08-21-2024 Emergency Department Summary [facility] Medical Records Department [address] [place] [address] Emergency Department Summary 08/21/24 MR#: [id number] Acct: [id number] Name: JAI GREEN Rep #: [id number] : 1970 53 From: Rio Dorman PCP: Care Physician,No Primary Status:[facility] ER Location: ED HPI History of Present Illness Chief Complaint: Shortness of Breath Informant: patient Narrative Narrative: Worsening dyspnea and started productive cough today. Tobacco history. States third visit to ED in the month and a half. He states he was seen here initially COVID flu chest x-ray was negative. Still had nonproductive cough and dyspnea. He returned 2 weeks ago again negative workup. Symptoms today worsen therefore came for reevaluation. He states had fevers and chills and changes in taste over a month ago when he first came. He had COVID back in 2019 without hospitalization. Denies chest pains. He does not have a PCP therefore is not on any medications. He does admit to paroxysmal nocturnal dyspnea and snoring at night. No diagnosis of sleep apnea. Reports on the first visit was treated with amoxicillin for sinusitis. Prior similar symptoms: Yes PFSH PFSH Medical History Pancreatitis No previous significant medical history Home Medications ???Medication ???Instructions ???Recorded ???Last Taken ???Type amoxicillin 875 mg-potassium 1 tab PO BID 7 days #14 tabs 05/01/23 Unknown Rx clavulanate 125 mg tablet oxycodone-acetaminophen 5 mg-325 1 tab PO Q6H PRN PRN Pain 3 days 05/02/23 Unknown Rx mg tablet #12 TABLETS amoxicillin 875 mg-potassium 1 tab PO BID #20 tabs 07/28/24 Unknown Rx clavulanate 125 mg tablet benzonatate 100 mg capsule 200 mg (2 x 100 mg) PO TID PRN PRN 08/13/24 Unknown Rx Cough #20 CAPSULES Allergy/AdvReac Type Severity Reaction Status Date / Time No Known Allergies Allergy Verified 08/21/24 17:15 Social History household members: significant other Smoking Status: Current every day smoker tobacco type: cigarettes substance use type: does not use ROS ROS ED Constitutional Constitutional ED: Denies chills, fever(s) or sweats Eyes Eyes: Denies change in vision ENT ENT ED: Denies dysphagia or sore throat Cardiovascular Cardiovascular: Denies chest pain, leg edema, palpitations or racing heartbeat Respiratory/Chest Respiratory/Chest: Reports cough and dyspnea; Denies dyspnea on exertion Gastrointestinal Gastrointestinal: Denies abdominal pain, diarrhea, nausea or vomiting Genitourinary Genitourinary ED: Denies dysuria, hematuria or urinary frequency Musculoskeletal Musculoskeletal: Denies back pain, extremity pain or neck pain Integumentary Denies rash or wounds Neurologic Neurologic: Denies headache(s), paresthesias or weakness EXAM Physical Exam Const Vital Signs: 08/21/24 17:15 08/21/24 17:19 08/21/24 17:40 Temperature 97.6 F L 97.6 F L Temperature Source Oral Oral Pulse Rate 75 75 Respiratory Rate 20 H 20 H Respiratory Effort Respiratory Depth Respiratory Pattern Blood Pressure 164/91 H 164/91 H Blood Pressure Mean 115 115 Pulse Ox 91 91 85 Oxygen Delivery Method Room Air Room Air Room Air Oxygen Flow Rate (L/min) 08/21/24 17:41 08/21/24 17:54 08/21/24 17:56 Temperature Temperature Source Pulse Rate 59 L Respiratory Rate 16 Respiratory Effort Respiratory Depth Respiratory Pattern Normal Blood Pressure Blood Pressure Mean Pulse Ox 92 96 Oxygen Delivery Method Nasal Cannula Nasal Cannula Oxygen Flow Rate (L/min) 2 2 08/21/24 18:19 08/21/24 18:28 08/21/24 19:00 Temperature 97.6 F L 98 F Temperature Source Temporal Oral Pulse Rate 70 74 Respiratory Rate 22 H 17 Respiratory Effort Short of Breath Respiratory Depth Shallow Respiratory Pattern Tachypnea Blood Pressure 164/91 H 145/117 H Blood Pressure Mean 115 126 Pulse Ox 96 99 Oxygen Delivery Method Nasal Cannula Room Air Nasal Cannula Oxygen Flow Rate (L/min) 2 4 08/21/24 19:14 08/21/24 20:00 08/21/24 20:52 Temperature 98.1 F Temperature Source Temporal Pulse Rate 65 67 72 Respiratory Rate 15 18 18 Respiratory Effort Respiratory Depth Respiratory Pattern Blood Pressure 148/87 H 125/72 H 118/74 Blood Pressure Mean 107 89 88 Pulse Ox 92 85 93 Oxygen Delivery Method Nasal Cannula Nasal Cannula Room Air Oxygen Flow Rate (L/min) 4 08/21/24 21:08 Temperature 98 F Temperature Source Pulse Rate 74 Respiratory Rate 15 Respiratory Effort Respiratory Depth Respiratory Pattern Blood Pressure 118/74 Blood Pressure Mean 88 Pulse Ox 94 Oxyge (more content not included)... Normal [facility] M100.678on 08-21-2024 M100.678 Pending SARS-CoV-2 (COVID 19) Negative INFLUENZA A Negative INFLUENZA B Negative RSV PCR Negative Normal [facility] Comment on above: Performed By: #### M 100.678 #### [facility] [address] [facility]. [place], [place], [address] Chest PA and Lateralon 08-13 Chest PA and Lateral [facility] Imaging Services [address] [place], [place] [id number] Chest PA and Lateral MR#: [id number] Acct: [id number] Name: JAI GREEN MARCELL Rep #: [id number] : 1970 M 53 From: Casey winters MD PCP: Care Physician,No Primary Status: [facility] ER Study: Chest PA and Lateral Date of Exam: 08/13/24 Exam# [id number] Ordering Dr: Abdiaziz Villeda MD [id number] STUDY: X-RAY CHEST REASON FOR EXAM: Male, 53 years old. Persistent cough TECHNIQUE: PA and lateral views of the chest. COMPARISON: Comparison is made with prior study dated July 28, 2024. FINDINGS: Hyperinflation. The lungs are clear. There is no demonstrated pleural abnormality. Normal size heart. Normal mediastinum and taylor. Normal visualized pulmonary arteries. Normal visualized aortic arch and descending thoracic aorta. Normal visualized thoracic spine. Normal visualized ribs, clavicles, and shoulders. There is no demonstrated abnormality of the visualized soft tissue structures of the upper abdomen. RAD/Chest PA and Lateral IMPRESSION: Hyperinflation. The lungs are clear. Electronically Signed: Casey Pemberton MD at 14:37 EDT Reading Location ID and State: [address] [place] [address] , Service support , CC: Dr. Adbiaziz Villeda MD; No Primary Care Physician Ecg Technician: Signed Normal [facility] Emergency Department Summary on 08-13-2024 Emergency Department Summary [facility] Medical Records Department [address] [place] [address] Emergency Department Summary 08/13/24 MR#: [id number] Acct: [id number] Name: JAI GREEN Rep #: [id number] : 1970 53 From: Abdiaziz Villeda MD PCP: Care Physician,No Primary Status:[facility] ER Location: ED HPI HPI - URI History of Present Illness Chief Complaint: Cough Informant: patient Narrative Narrative: 53-year-old male with had a nonproductive cough for a little over 2 weeks. Initially was seen here because he was having a lot of sinus pain and congestion with frontal headaches with it, he was put on Augmentin because of the possibility of a bacterial sinus infection but it was suspected that he had a viral etiology at the time, he states all of the sinus stuff went away and is better, but he still has a cough. He is not dyspnea, denies any fevers or chills, denies any leg swelling. 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 No new symptoms. ROS ROS ED Constitutional Constitutional ED: Denies chills or fever(s) Eyes Eyes: Denies change in vision or diplopia ENT ENT ED: Denies rhinorrhea or sore throat Cardiovascular Cardiovascular: Denies chest pain or palpitations Respiratory/Chest Respiratory/Chest: Reports cough; Denies dyspnea Gastrointestinal Gastrointestinal: Denies abdominal pain, diarrhea, nausea or vomiting Genitourinary Genitourinary ED: Denies dysuria or hematuria Musculoskeletal Musculoskeletal: Denies back pain or neck pain Integumentary Denies abscess or rash Neurologic Neurologic: Denies headache(s), paresthesias or weakness Psychiatric Psychiatric: Denies suicidal thoughts [facility] Medical History Pancreatitis No previous significant medical history Home Medications ???Medication ???Instructions ???Recorded ???Last Taken ???Type amoxicillin 875 mg-potassium 1 tab PO BID 7 days #14 tabs 05/01/23 Unknown Rx clavulanate 125 mg tablet oxycodone-acetaminophen 5 mg-325 1 tab PO Q6H PRN PRN Pain 3 days 05/02/23 Unknown Rx mg tablet #12 TABLETS amoxicillin 875 mg-potassium 1 tab PO BID #20 tabs 07/28/24 Unknown Rx clavulanate 125 mg tablet benzonatate 100 mg capsule 200 mg (2 x 100 mg) PO TID PRN PRN 08/13/24 Unknown Rx Cough #20 CAPSULES Allergy/AdvReac Type Severity Reaction Status Date / Time No Known Allergies Allergy Verified 08/13/24 12:41 Social History household members: significant other Smoking Status: Current every day smoker tobacco type: cigarettes substance use type: does not use EXAM Physical Exam Const Vital Signs: 08/13/24 12:39 08/13/24 13:57 08/13/24 13:58 Temperature 96.8 F L 97.8 F Temperature Source Temporal Oral Pulse Rate 73 73 Respiratory Rate 20 H 20 H Respiratory Effort Non-Labored Respiratory Depth Normal Respiratory Pattern Normal Blood Pressure 161/94 H 161/94 H Blood Pressure Mean 116 116 Pulse Ox 94 94 Oxygen Delivery Method Room Air Room Air Room Air Positive well nourished, well developed and obese General Appearance ED: well developed and NAD Nutritional Appearance: obese HEENT Reports moist mucous membranes normocephalic and atraumatic Eyes PERRL and EOMs intact bilaterally Neck full ROM, no lymphadenopathy and supple Resp normal respiratory effort and clear to auscultation bilaterally Cardio regular rate, regular rhythm and no murmurs Rate: Negative for tachycardic GI non-distended Back/Spine General Back: other FROM Extremity normal to inspection General Extremety ED: Negative for edema, pulses abnormal or tenderness General Extremity: Negative for edema or pulses abnormal Neuro oriented x3, CN's II-XII intact bilaterally and no sensory deficits noted Sensorium / Orientation: awake and alert Motor Exam: strength 5/5 throughout Psych mental status grossly normal Skin no rashes or lesions noted and no wounds MDM MDM MDM Narrative Medical decision making narrative: I think this is viral which is why his cough is lingering. He agrees he does not feel worse, he just cannot stop coughing at times. It is nonproductive. He is concerned because he had a really serious pneumonia that landed him an inpatient stay for 8 days, and he states he was really ill. He states as result of that he was told he is at a higher risk of getting pneumonia. Although I suspect this is all viral, he is a large gentleman with a BMI of 43 and I think repeating a two-view chest x-ray although was -2 weeks ago according to records, it is completely reasonable given his pulse ox at 94% on room air. He is amenable to that. Two-view chest x-ray my interpretation negati (more content not included)... Normal [facility] Chest PA and Lateralon 07-28 Chest PA and Lateral [facility] Imaging Services [address] [place], [place] [id number] Chest PA and Lateral MR#: [id number] Acct: [id number] Name: JAI GREEN Rep #: [id number] : 1970 M 53 From: Mohamud Belle MD PCP: Care Physician,No Primary Status: [facility] ER Study: Chest PA and Lateral Date of Exam: 07/28/24 Exam# [id number] Ordering Dr: Rich Lopez DO [id number] EXAM: XR CHEST, 2 VIEWS CLINICAL INDICATION: cough TECHNIQUE: Frontal and lateral views of the chest. COMPARISON: XR Chest dated 10/22/2022 FINDINGS: LUNGS AND PLEURAL SPACES: Normal. No consolidation or edema. No pneumothorax. No effusion. HEART: Normal heart size. MEDIASTINUM: No mediastinal or hilar mass. BONES/JOINTS: No acute abnormality. RAD/Chest PA and Lateral IMPRESSION: No acute cardiopulmonary abnormality. No interval change. Electronically Signed: Mohamud Belle MD at 11:44 EDT , CC: Dr. Rich Lopez DO; No Primary Care Physician Ecg Technician: Signed Normal [facility] Emergency Department Summary on 07-28-2024 Emergency Department Summary [facility] Medical Records Department [address] [place] [address] Emergency Department Summary 07/28/24 MR#: [id number] Acct: [id number] Name: JAI GREEN Rep #: [id number] : 1970 53 From: Rich Lopez DO PCP: Care Physician,No Primary Status:[facility] ER Location: ED HPI History of Present Illness Chief Complaint: Cold Sx Informant: patient Narrative Narrative: 53-year-old male presenting to the emergency room not feeling well. Patient states that on developed some nasal congestion and into Tuesday had cough. Slight sore throat. He noted that this morning he had a lot of pressure in his forehead. He notes subjective fever chills. Nonproductive cough. He states this feels different than when he had COVID previously. He notes a history of pneumonia and Staphylococcus bacteremia. Currently takes no prescription medications. 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 He would like to not miss as much work as possible. [facility] Medical History Pancreatitis No previous significant medical history Home Medications ???Medication ???Instructions ???Recorded ???Last Taken ???Type amoxicillin 875 mg-potassium 1 tab PO BID 7 days #14 tabs 05/01/23 Unknown Rx clavulanate 125 mg tablet oxycodone-acetaminophen 5 mg-325 1 tab PO Q6H PRN PRN Pain 3 days 05/02/23 Unknown Rx mg tablet #12 TABLETS amoxicillin 875 mg-potassium 1 tab PO BID #20 tabs 07/28/24 Unknown Rx clavulanate 125 mg tablet Allergy/AdvReac Type Severity Reaction Status Date / Time No Known Allergies Allergy Verified 07/28/24 10:31 Social History household members: significant other Smoking Status: Current every day smoker tobacco type: cigarettes substance use type: does not use ROS ROS ED Constitutional Constitutional ED: Reports chills and fever(s); Denies weight loss Eyes Eyes: Denies change in vision or diplopia ENT ENT ED: Reports rhinorrhea and sore throat; Denies ear pain Cardiovascular Cardiovascular: Denies chest pain, orthopnea, palpitations or racing heartbeat Respiratory/Chest Respiratory/Chest: Reports cough; Denies dyspnea or orthopnea Gastrointestinal Gastrointestinal: Denies abdominal pain, diarrhea, nausea or vomiting Genitourinary Genitourinary ED: Denies dysuria, hematuria or urinary frequency Musculoskeletal Musculoskeletal: Denies arthralgias or myalgias Integumentary Denies abscess or rash Neurologic Neurologic: Reports headache(s); Denies weakness Psychiatric Psychiatric: Denies anxiety, depression, suicidal ideation or suicidal thoughts Endocrine Endocrinology: Denies polydipsia, polyphagia or polyuria Allergic/Immunologic Allergic/Immunologic ED: Denies mouth swelling, tongue swelling or urticaria EXAM Physical Exam Const Vital Signs: 07/28/24 10:31 07/28/24 10:33 07/28/24 11:23 Temperature 96.7 F L Temperature Source Temporal Pulse Rate 69 73 Respiratory Rate 18 20 H Respiratory Effort Normal Respiratory Pattern Normal Blood Pressure 140/101 H 164/104 H Blood Pressure Mean 114 124 Pulse Ox 90 95 Oxygen Delivery Method Room Air Room Air Positive well nourished and well developed General Appearance ED: well developed HEENT Reports normocephalic, head/scalp atraumatic, TM's clear and moist mucous membranes HEENT Narrative: Mild turbinate edema. Mild oropharyngeal erythema no significant exudates palatal petechiae or evidence of retropharyngeal peritonsillar abscess. Tympanic Membrane ED: Yes TM's clear Eyes PERRL and EOMs intact bilaterally Neck no lymphadenopathy, supple and no JVD Resp normal respiratory effort and clear to auscultation bilaterally Resp Narrative: Frequent cough that is nonproductive. Cardio regular rate, regular rhythm and no murmurs GI normal to inspection, nondistended, normoactive bowel sounds and non-tender Palpation: soft Back/Spine no CVA tenderness and normal ROM Extremity normal to inspection General Extremety ED: Negative for edema General Extremity: Negative for edema Neuro oriented x3 and CN's II-XII intact bilaterally Sensorium / Orientation: alert Motor Exam: strength 5/5 throughout Psych mental status grossly normal Mood Affect: Negative for depressed or tearful Skin no rashes or lesions noted and no wounds MDM MDM MDM Narrative Medical decision making narrative: Differential diagnosis includes but not limited to pneumonia sinusitis viral syndrome bronchitis My independent interpretation the chest x-ray is no acute process. COVID influenza and RSV swabs were negative. With the frontal headache nasal drainage postnasal drip Berry) to have Augmentin. He un (more content not included)... Normal [facility] M100.678on 07-28-2024 M100.678 Pending SARS-CoV-2 (COVID 19) Negative INFLUENZA A Negative INFLUENZA B Negative RSV PCR Negative Normal [facility] Comment on above: Performed By: #### M 100.678 #### [facility] [address], [address] No Panel Information SARS-CoV-2 & FLU Antigen (Rapid) SARS-CoV-2 (COVID 19) [facility] Work Phone: Vital Signs Date Time Vital Sign Value Performing Clinician Facility 03-14-2025 11:18-0400 Diastolic blood pressure 84 mm[Hg] [place] Paul DO Work Phone: [facility] 03-14-2025 11:18-0400 Systolic blood pressure 136 mm[Hg] [place] Paul DO Work Phone: [facility] 03-14-2025 11:03-0400 Body height 182.9 cm Rylan Paul DO Work Phone: [facility] 03-14-2025 11:03-0400 Body mass index (BMI) [Ratio] 42.59 kg/m2 Rylan Paul DO Work Phone: [facility] 03-14-2025 11:03-0400 Body temperature 97.5 [degF] [place] Paul DO Work Phone: [facility] 03-14-2025 11:03-0400 Body weight 142.43 kg [place] Paul DO Work Phone: [facility] 03-14-2025 11:03-0400 Heart rate 73 /min [place] Paul DO Work Phone: [facility] 03-14-2025 11:03-0400 SaO2% (BldA) [Mass fraction] 96 % Rylan Paul DO Work Phone: [facility] 03-04-2025 15:23-0400 Diastolic blood pressure 88 mm[Hg] [place] Paul DO Work Phone: [facility] 03-04-2025 15:23-0400 Systolic blood pressure 138 mm[Hg] Rylan Paul DO Work Phone: [facility] 03-04-2025 14:32-0400 Body height 182.9 cm [place] Paul DO Work Phone: [facility] 03-04-2025 14:32-0400 Body mass index (BMI) [Ratio] 42.31 kg/m2 Rylan Paul DO Work Phone: [facility] 03-04-2025 14:32-0400 Body weight 141.52 kg Rylan Paul DO Work Phone: [facility] 03-04-2025 14:32-0400 Heart rate 67 /min [place] Paul DO Work Phone: [facility] 03-04-2025 14:32-0400 SaO2% (BldA) [Mass fraction] 93 % Rylan Paul DO Work Phone: [facility] 02-22-2025 08:46-0400 Diastolic blood pressure 100 mm[Hg] [place] Paul DO Work Phone: [facility] 02-22-2025 08:46-0400 Systolic blood pressure 140 mm[Hg] Rylan Paul DO Work Phone: [facility] 02-22-2025 08:10-0400 Body height 182.9 cm [place] Paul DO Work Phone: [facility] 02-22-2025 08:10-0400 Body mass index (BMI) [Ratio] 43.13 kg/m2 Rylan Paul DO Work Phone: [facility] 02-22-2025 08:10-0400 Body temperature 98.71 [degF] Rylan Paul DO Work Phone: [facility] 02-22-2025 08:10-0400 Body weight 144.24 kg [place] Paul DO Work Phone: [facility] 02-22-2025 08:10-0400 Heart rate 75 /min [place] Paul DO Work Phone: [facility] 02-22-2025 08:10-0400 SaO2% (BldA) [Mass fraction] 94 % [place] Paul DO Work Phone: [facility] 02-18-2025 17:29-0400 Diastolic blood pressure 91 mm[Hg] No Primary Care Physician [facility] 02-18-2025 17:29-0400 Heart rate 70 /min No Primary Care Physician [facility] 02-18-2025 17:29-0400 Respiratory rate 20 /min No Primary Care Physician [facility] 02-18-2025 17:29-0400 Systolic blood pressure 130 mm[Hg] No Primary Care Physician [facility] 02-18-2025 15:29-0400 Body height 182.88 cm No Primary Care Physician [facility] 02-18-2025 15:29-0400 Body mass index (BMI) [Ratio] 43 kg/m2 No Primary Care Physician [facility] 02-18-2025 15:29-0400 Body temperature 97.7 [degF] No Primary Care Physician [facility] 02-18-2025 15:29-0400 Body weight 144.06 kg No Primary Care Physician [facility] 02-18-2025 15:29-0400 SaO2% (BldA) [Mass fraction] 95 % No Primary Care Physician [facility] 02-18-2025 15:03-0400 Body temperature 98.6 [degF] Kinjal Clutter PA-C Work Phone: [facility] 02-18-2025 15:03-0400 Body weight 143.6 kg Kinjal Clutter PA-C Work Phone: [facility] 02-18-2025 15:03-0400 Diastolic blood pressure 74 mm[Hg] Kinjal Clutter PA-C Work Phone: [facility] 02-18-2025 15:03-0400 Heart rate 88 /min Kinjal Clutter PA-C Work Phone: [facility] 02-18-2025 15:03-0400 Respiratory rate 18 /min Kinjal Clutter PA-C Work Phone: [facility] 02-18-2025 15:03-0400 SaO2% (BldA) [Mass fraction] 96 % Kinjal Clutter PA-C Work Phone: [facility] 02-18-2025 15:03-0400 Systolic blood pressure 132 mm[Hg] Kinjal Clutter PA-C Work Phone: [facility] 02-05-2025 16:02-0400 Body temperature 97.81 [degF] Adele Mcclure CRIMPING PRESS OPERATOR.LAUNDRY OR DRY CLEANERS COUNTER CLERK Work Phone: [facility] 02-05-2025 16:02-0400 Body weight 142.1 kg Adele Mcclure CRIMPING PRESS OPERATOR.LAUNDRY OR DRY CLEANERS COUNTER CLERK Work Phone: [facility] 02-05-2025 16:02-0400 Diastolic blood pressure 82 mm[Hg] Adele Mcclure CRIMPING PRESS OPERATOR.LAUNDRY OR DRY CLEANERS COUNTER CLERK Work Phone: [facility] 02-05-2025 16:02-0400 Heart rate 78 /min Adele Mcclure CRIMPING PRESS OPERATOR.LAUNDRY OR DRY CLEANERS COUNTER CLERK Work Phone: [facility] 02-05-2025 16:02-0400 Respiratory rate 20 /min Adele Mcclure CRIMPING PRESS OPERATOR.LAUNDRY OR DRY CLEANERS COUNTER CLERK Work Phone: [facility] 02-05-2025 16:02-0400 SaO2% (BldA) [Mass fraction] 97 % Adele Mcclure CRIMPING PRESS OPERATOR.LAUNDRY OR DRY CLEANERS COUNTER CLERK Work Phone: [facility] 02-05-2025 16:02-0400 Systolic blood pressure 142 mm[Hg] Adele Mcclure CRIMPING PRESS OPERATOR.LAUNDRY OR DRY CLEANERS COUNTER CLERK Work Phone: [facility] 02-04-2025 20:11-0400 Body temperature 98 [degF] No Primary Care Physician [facility] 02-04-2025 20:11-0400 Diastolic blood pressure 79 mm[Hg] No Primary Care Physician [facility] 02-04-2025 20:11-0400 Heart rate 82 /min No Primary Care Physician [facility] 02-04-2025 20:11-0400 Respiratory rate 17 /min No Primary Care Physician [facility] 02-04-2025 20:11-0400 SaO2% (BldA) [Mass fraction] 97 % No Primary Care Physician [facility] 02-04-2025 20:11-0400 Systolic blood pressure 139 mm[Hg] No Primary Care Physician [facility] 02-04-2025 17:05-0400 Body height 182.88 cm No Primary Care Physician [facility] 02-04-2025 17:05-0400 Body mass index (BMI) [Ratio] 41.7 kg/m2 No Primary Care Physician [facility] 02-04-2025 17:05-0400 Body weight 139.57 kg No Primary Care Physician [facility] 12-22-2024 01:36-0500 Body temperature 98.4 [degF] No Primary Care Physician [facility] 12-22-2024 01:36-0500 Diastolic blood pressure 68 mm[Hg] No Primary Care Physician [facility] 12-22-2024 01:36-0500 Heart rate 83 /min No Primary Care Physician [facility] 12-22-2024 01:36-0500 Respiratory rate 18 /min No Primary Care Physician [facility] 12-22-2024 01:36-0500 SaO2% (BldA) [Mass fraction] 94 % No Primary Care Physician [facility] 12-22-2024 01:36-0500 Systolic blood pressure 119 mm[Hg] No Primary Care Physician [facility] 12-22-2024 01:06-0500 Inhaled oxygen flow rate 2 L/min No Primary Care Physician [facility] 12-21-2024 23:09-0500 Body mass index (BMI) [Ratio] 42 kg/m2 No Primary Care Physician [facility] 12-21-2024 23:09-0500 Body weight 140.6 kg No Primary Care Physician [facility] 11-25-2024 21:30-0500 Body temperature 97.9 [degF] No Primary Care Physician [facility] 11-25-2024 21:30-0500 Diastolic blood pressure 93 mm[Hg] No Primary Care Physician [facility] 11-25-2024 21:30-0500 Heart rate 80 /min No Primary Care Physician [facility] 11-25-2024 21:30-0500 Respiratory rate 18 /min No Primary Care Physician [facility] 11-25-2024 21:30-0500 SaO2% (BldA) [Mass fraction] 93 % No Primary Care Physician [facility] 11-25-2024 21:30-0500 Systolic blood pressure 197 mm[Hg] No Primary Care Physician [facility] 11-25-2024 20:42-0500 Body mass index (BMI) [Ratio] 42.7 kg/m2 No Primary Care Physician [facility] 11-25-2024 20:42-0500 Body weight 142.88 kg No Primary Care Physician [facility] 10-27-2024 18:26-0500 Body temperature 97.8 [degF] No Primary Care Physician [facility] 10-27-2024 18:26-0500 Diastolic blood pressure 74 mm[Hg] No Primary Care Physician [facility] 10-27-2024 18:26-0500 Heart rate 76 /min No Primary Care Physician [facility] 10-27-2024 18:26-0500 Respiratory rate 16 /min No Primary Care Physician [facility] 10-27-2024 18:26-0500 SaO2% (BldA) [Mass fraction] 94 % No Primary Care Physician [facility] 10-27-2024 18:26-0500 Systolic blood pressure 155 mm[Hg] No Primary Care Physician [facility] 10-27-2024 17:36-0500 Body mass index (BMI) [Ratio] 42.7 kg/m2 No Primary Care Physician [facility] 10-27-2024 17:36-0500 Body weight 143.19 kg No Primary Care Physician [facility] 05-02-2023 02:32-0400 Body height 180.34 cm [facility] 05-02-2023 02:32-0400 Body mass index (BMI) [Ratio] 38.7 kg/m2 [facility] 05-02-2023 02:32-0400 Body temperature 96.1 [degF] [facility] 05-02-2023 02:32-0400 Body weight 125.8 kg [facility] 05-02-2023 02:32-0400 Diastolic blood pressure 105 mm[Hg] [facility] 05-02-2023 02:32-0400 Heart rate 67 /min [facility] 05-02-2023 02:32-0400 Respiratory rate 20 /min [facility] 05-02-2023 02:32-0400 SaO2% (BldA) [Mass fraction] 97 % [facility] 05-02-2023 02:32-0400 Systolic blood pressure 168 mm[Hg] [facility] 05-01-2023 12:44-0400 Body height 180.34 cm [facility] 05-01-2023 12:44-0400 Body mass index (BMI) [Ratio] 38.5 kg/m2 [facility] 05-01-2023 12:44-0400 Body temperature 97.2 [degF] [facility] 05-01-2023 12:44-0400 Body weight 125.19 kg [facility] 05-01-2023 12:44-0400 Diastolic blood pressure 107 mm[Hg] [facility] 05-01-2023 12:44-0400 Heart rate 73 /min [facility] 05-01-2023 12:44-0400 Respiratory rate 18 /min [facility] 05-01-2023 12:44-0400 SaO2% (BldA) [Mass fraction] 93 % [facility] 05-01-2023 12:44-0400 Systolic blood pressure 200 mm[Hg] [facility] 10-22-2022 16:15-0500 Body height 180.34 cm [facility] Work Phone: 10-22-2022 16:15-0500 Body mass index (BMI) [Ratio] 40.1 kg/m2 [facility] Work Phone: 10-22-2022 16:15-0500 Body temperature 98.9 [degF] [facility] Work Phone: 10-22-2022 16:15-0500 Body weight 130.6 kg [facility] Work Phone: 10-22-2022 16:15-0500 Diastolic blood pressure 94 mm[Hg] [facility] Work Phone: 10-22-2022 16:15-0500 Heart rate 78 /min [facility] Work Phone: 10-22-2022 16:15-0500 Respiratory rate 22 /min [facility] Work Phone: 10-22-2022 16:15-0500 SaO2% (BldA) [Mass fraction] 94 % [facility] Work Phone: 10-22-2022 16:15-0500 Systolic blood pressure 148 mm[Hg] [facility] Work Phone: Encounters Encounter Date Encounter Type Care Provider Facility Start: 03-14-2025 End: 03-14-2025 Telephone encounter Rylan Miller DO Work Phone: [facility] Start: 03-14-2025 End: 03-14-2025 Patient encounter procedure Rylan Miller DO Work Phone: [facility] Comment on above: Primary hypertension (Primary Dx); Type 2 diabetes mellitus without complication, without long-term current use of insulin ([facility]); MARIMAR (obstructive sleep apnea); Scleromyxedema; Visit for suture removal; BMI 40.0-44.9, adult ([facility]) Start: 03-14-2025 End: 03-14-[address] [facility] [facility] Start: 03-12-2025 End: 03-12-[address] [facility] Facility:[facility] Start: 03-12-2025 End: 03-12-2025 Subsequent hospital visit by physician Carlie [facility] ([facility]) Work Phone: Cat Scan Comment on above: Submental mass [R22. 1] Start: 03-08-2025 End: 03-08-2025 Telephone encounter Rylan Miller DO Work Phone: [facility] Comment on above: Medication Authoriza tion (Ozempic) Start: 03-06-2025 End: 03-08-2025 Telephone encounter Rylan Miller DO Work Phone: [facility] Comment on above: Medication Authoriza tion (ozempic) Start: 03-04-2025 End: 03-04-2025 Patient encounter procedure Rylan Miller DO Work Phone: [facility] Comment on above: Type 2 diabetes micheal itus without complication, without long- term current use of insulin ([facility]) (Primary Dx); Psoriasis; Primary hypertension; Bilateral leg edema; Varicose veins of both legs with edema; Other specified hypothyroidism; Mixed hyperlipidemia; Rectal bleeding; Straining during bowel movements; Gingivitis; Skin tag; BMI 40.0-44.9, adult ([facility]) Start: 03-04-2025 End: 03-04-2025 ambulatory [facility] Facility:[facility] Start: 02-28-2025 End: 02-28-2025 ambulatory RULA AQUINO Facility:[facility] Start: 02-28-2025 End: 02-28-2025 Patient encounter procedure Rula Aquino MD Work Phone: Dermatology Comment on above: APPOINTMENT CANCELLE D (Primary Dx) Start: 02-28-2025 End: 02-28-2025 ambulatory RULA AQUINO Facility:[facility] Start: 02-28-2025 End: 02-28-2025 Patient encounter procedure Rula Aquino MD Work Phone: Dermatology Comment on above: Rash and nonspecific skin eruption (Primary Dx); Skin neoplasm; Psoriasis vulgaris [L40.0] Start: 02-27-2025 End: 02-28-2025 Telephone encounter Rylan Miller DO Work Phone: [facility] Start: 02-25-2025 End: 04-27-2025 Follow-up encounter Rylan Miller DO Work Phone: [facility] Start: 02-23-2025 End: 02-23-[address] [facility] Facility:[facility] Start: 02-22-2025 End: 02-22-2025 ambulatory [facility] Facility:[facility] Start: 02-22-2025 End: 02-22-2025 Patient encounter procedure Rylan Miller DO Work Phone: [facility] Comment on above: Uncontrolled hyperte nsion (Primary Dx); Type 2 diabetes mellitus without complication, without long-term current use of insulin (HCC); SOB (shortness of breath); Submental mass; Umbilical hernia without obstruction or gangrene; Observed sleep apnea; Former smoker; BMI 40.0-44.9, adult (HCC); Psoriasis; Bilateral leg edema; Screening for thyroid disorder; Screening for hyperlipidemia; Screening for prostate cancer Start: 02-18-2025 End: 02-18-2025 Emergency department patient visit Danish Li Facility:[facility] Start: 02-18-2025 End: 02-18-2025 ambulatory [facility] Facility:[facility] Start: 02-18-2025 End: 02-18-2025 Patient encounter procedure Kinjal Grijalva PA-C Work Phone: [facility] Comment on above: Peripheral edema (Pr imary Dx) Start: 02-05-2025 End: 02-05-2025 Subsequent hospital visit by physician [facility] Work Phone: Radiology Comment on above: Acute cough [R05.1] Start: 02-05-2025 End: 02-05-2025 ambulatory ADELE MCCLURE Facility:[facility] Start: 02-05-2025 End: 02-05-2025 Patient encounter procedure Adele Mcclure CRIMPING PRESS OPERATOR.LAUNDRY OR DRY CLEANERS COUNTER CLERK Work Phone: [facility] Comment on above: Submental adenopathy (Primary Dx); Sore throat; Acute cough Start: 02-04-2025 End: 02-04-2025 Emergency department patient visit No Primary Care Physician -Emergency Department Work Phone: Start: 12-21-2024 End: 12-22-2024 Emergency department patient visit Norbert Maharaj DO -Emergency Department Work Phone: Start: 11-25-2024 End: 11-25-2024 Emergency department patient visit Dr. Victor Manuel Frank DO -Emergency Department Work Phone: Start: 10-27-2024 End: 10-27-2024 Emergency department patient visit Dr. Rio Norris DO -Emergency Department Work Phone: Start: 09-08-2024 End: 09-08-2024 Emergency department patient visit Burton Maki Facility:[facility] Start: 08-23-2024 End: 08-23-2024 Emergency department patient visit Rio Norris Facility:[facility] Start: 08-21-2024 End: 08-21-2024 Emergency department patient visit Rio Norris Facility:[facility] Start: 08-13-2024 End: 08-13-2024 Emergency department patient visit Abdiaziz Villeda Facility:[facility] Start: 07-28-2024 End: 07-28-2024 Emergency department patient visit No Primary Care Physician Facility:[facility] Start: 05-02-2023 End: 05-02-2023 Emergency department patient visit [facility]-Emergency Department Start: 05-01-2023 End: 05-01-2023 Emergency department patient visit [facility] Start: 10-22-2022 End: 10-22-2022 Emergency department patient visit [facility]-Emergency Department Procedures Date Procedure Procedure Detail Performing Clinician Start: 03-12-2025 Ct soft tissue neck w/o contrast material [place] Chatoshanice Miller DO Work Phone: Start: 02-28-2025 SKIN / NAIL BIOPSY Janett Aquino MD Work Phone: Start: 02-28-2025 Level iv surg pathol ogy gross&microscopic exam Rula Aquino MD Work Phone: Start: 02-05-2025 Radiologic exam ches t 2 views Adele Mcclure CRIMPING PRESS OPERATOR.LAUNDRY OR DRY CLEANERS COUNTER CLERK Work Phone: Start: 02-05-2025 STREP A MOLECULAR (POC) Gabriella Robbins CRIMPING PRESS OPERATOR.LAUNDRY OR DRY CLEANERS COUNTER CLERK Work Phone: Start: 02-04-2025 SARS-CoV-2, Influenz a & RSV (PCR) No Primary Care Physician Start: 12-22-2024 CT of soft tissues o f neck with contrast No Primary Care Physician Start: 12-21-2024 SARS-CoV-2, Influenz a & RSV (PCR) No Primary Care Physician Start: 12-21-2024 Streptococcus pyogen es rRNA assay No Primary Care Physician Start: 10-22-2022 Plain chest X-ray SARS-CoV-2 & FLU Ant igen (Rapid) Plan of Treatment Date Care Activity Detail Author Start: 03-14-2026 Annual PCP Team Vice President Compliance bernardino Disease Visit Annual PCP Team Chronic Disease Visit [facility] Start: 03-04-2026 Annual PCP Team Vice President Compliance bernardino Disease Visit Annual PCP Team Chronic Disease Visit [facility] Start: 02-23-2026 Hepatitis B surface antibody level LDL Cholesterol [facility] Start: 02-22-2026 Annual PCP Team Vice President Compliance bernardino Disease Visit Annual PCP Team Chronic Disease Visit [facility] Start: 07-29-2025 Influenza vaccination Influenz a Vaccine (Season Ended) [facility] Start: 06-13-2025 End: 06-13-2025 Patient encounter procedure 06/13/2025 11:15 [place] [address] [place] [address] f/u 3 month [facility] Comment on above: f/u 3 month Start: 06-03-2025 End: 09-02-2025 Hepatic function 2000 panel - Serum or Plasma HEPATIC FUNCTION PNL Lab Routine Mixed hyperlipidemia Expected: 06/03/2025, Expires: 09/02/2025 [facility] Comment on above: Expected: 06/03/2025 , Expires: 09/02/2025 Start: 06-03-2025 End: 09-02-2025 Lipid 1996 panel - Serum or Plasma LIPID PANEL, FASTING Lab Routine Mixed hyperlipidemia Expected: 06/03/2025, Expires: 09/02/2025 [facility] Comment on above: Expected: 06/03/2025 , Expires: 09/02/2025 Start: 06-03-2025 End: 09-02-2025 Thyrotropin [Units/volume] in Serum or Plasma THYROID STIMULATING HORMONE Lab Routine Other specified hypothyroidism Expected: 06/03/2025, Expires: 09/02/2025 [facility] Comment on above: Expected: 06/03/2025 , Expires: 09/02/2025 Start: 05-26-2025 Hemoglobin A1c measurement HbA1C [facility] Start: 04-29-2025 Glaucoma screening Dilated Retinal E xam [facility] Comment on above: Postponed from 11/09 (Currently Scheduled) Start: 03-14-2025 End: 03-14-2025 Patient encounter procedure 03/14/2025 1:20 PM EDT Office Visit [facility] [address] [place] [address] Nancy Doe, CRIMPING PRESS OPERATOR.LAUNDRY OR DRY CLEANERS COUNTER CLERK [address] [place] [address] New Patient/Establish care [facility] Comment on above: New Patient/Establis h care Start: 03-14-2025 End: 03-14-2025 Patient encounter procedure 03/14/2025 11:15 [place] [address] [facility] [address] f/u 3 weeks medication, bp check [facility] Comment on above: f/u 3 weeks medicati on, bp check Start: 03-12-2025 End: 03-12-2025 Patient encounter procedure [facility] Comment on above: Submental mass [R22. 1] SOB (shortness of br eath) [R06.02] Start: 03-04-2025 End: 03-04-2025 Patient encounter procedure 03/04/2025 2:15 [place] [address] [facility] [address] [address] DM f/u blood sugars running high [facility] Comment on above: DM f/u blood sugars running high Start: 03-04-2025 End: 06-03-2025 Microalbumin/Creatinine [Mass Ratio] in Urine ALBUMIN/CREATININE RATIO, URINE Lab Routine Type 2 diabetes mellitus without complication, without long-term current use of insulin (HCC) Expected: 03/04/2025, Expires: 06/03/2025 [facility] Work Phone: Comment on above: Expected: 03/04/2025 , Expires: 06/03/2025 Start: 02-22-2025 End: 02-22-2025 Patient encounter procedure 02/22/2025 8:00 [place] [address] Rylan Miller [address] [place] [address] New Patient Est care with PCP, Dm and high Blood Pressure, swollen feet [facility] Comment on above: New Patient Est care with PCP, Dm and high Blood Pressure, swollen feet Start: 02-18-2025 [facility] Start: 02-04-2025 [facility] Start: 12-22-2024 [facility] Start: 12-21-2024 [facility] Start: 10-27-2024 [facility] Start: 07-29-2024 Covid-19 Vaccine ( season) Covid-19 Vaccine ( season) [facility] Start: 07-29-2024 Influenza vaccination Influenza Vacc ine (#1) [facility] Start: 2022 Pneumococcal Vaccine : 50+ (1 of 1 - PCV) Pneumococcal Vaccine: 50+ (1 of 1 - PCV) [facility] Start: 2022 Shingrix Vaccine (1 of 2) Dietz grix Vaccine (1 of 2) [facility] Start: 2017 Diabetes Screening Diabetes Screenin g [facility] Start: 2017 Screening for malign ant neoplasm of colon [facility] Start: 2007 Lipid panel Lipid Screening [facility] Start: 1991 Hepatitis B Vaccine (1 of 3 - 19+ 3-dose series) Hepatitis B Vaccine (1 of 3 - 19+ 3-dose series) [facility] Start: 1991 Pneumococcal Vaccine : 50+ (1 of 2 - PCV) Pneumococcal Vaccine: 50+ (1 of 2 - PCV) [facility] Start: 1991 Urine microalbumin profile DTa P,Tdap,Td Vaccine (1 - Tdap) [facility] Start: 1990 Anxiety Screening Anxiety Screening [facility] Start: 1990 BP Controlled (<130/80) BP Controlle d (<130/80) [facility] Start: 1990 Depression Screening Depression Scre ening [facility] Start: 1990 Hepatitis C screening Hepatitis C Sc natacha [facility] Start: 1990 HIV screening HIV Screening [facility] Start: 1982 Diabetic foot examination Diabetic F oot Exam [facility] Start: 1982 Glaucoma screening Dilated Retinal E xam [facility] Start: 1982 Hepatitis B screening Urine Albumin:Creatinine Ratio [facility] End: 03-24-2026 CT Neck WO contrast CT NECK SOFT TISSUE WO IVCON Radiology Routine Submental mass 1 Occurrences starting 02/22/2025 until 03/24/2026 [facility] Comment on above: 1 Occurrences starti ng 02/22/2025 until 03/24/2026 End: 02-22-2026 Echocardiography ECHO Cardiology Routine SOB (shortness of breath) 1 Occurrences starting 02/22/2025 until 02/22/2026 [facility] Comment on above: 1 Occurrences starti ng 02/22/2025 until 02/22/2026 Patient Education [facility] Work Phone: Patient referral [facility] Work Phone: SLEEP STUDY ORDER NON [facility] SLEEP STUDY ORDER NON [facility] Procedures Routine Observed sleep apnea Ordered: 02/22/2025 [facility] Work Phone: Comment on above: Ordered: 02/22/2025 Payers Date Payer Category Payer Blue [employer] Blue [employer] BLUE ACCE SS PPO Member Subscriber Plan / Payer (Effective 2024-Present) Name: Jai Green Relation to Subscriber: Self Name: Jai Green Payer ID: [id number] (NAIC) Type: PPO Address: [place] [id number] 2024 Unknown [id number] 2024 Self-pay [id number] Unknown [facility] [id number] Unknown [id number] Unknown [id number] Unknown [id number] Unknown [id number] Unknown [id number] Unknown [id number] Unknown [id number] Unknown [id number] Unknown [id number] Unknown [id number] Social History Date Type Detail Facility Start: 10-22-2022 End: 05-02-2023 Tobacco smoking status WIIS Unknown if ever smoked [facility] Start: 12-18-2019 Heavy [facility] Start: 12-18-2019 Marijuana [facility] Start: 12-18-2019 Roommate [facility] Start: 12-18-2019 Cigarettes [facility] Start: 1970 Sex Assigned At Male [facility] Start: 02-05-2025 End: 02-22-2025 Tobacco smoking status NHIS Ex-smoker [facility] Work Phone: History of tobacco use Current smoker [facility] History of tobacco use Cigarette Smoker [facility] Start: 02-05-2025 End: 02-22-2025 Alcoholic beverage intake Ex-drinker (finding) [facility] Start: 02-05-2025 End: 02-28-2025 History of Social function [facility] Start: 02-05-2025 End: 02-28-2025 Tobacco use panel [facility] Start: 02-05-2025 Alcohol Comment Recovering Alcoholic [facility] Start: 1970 Sex assigned at Not on file [facility] Start: 02-04-2025 End: 02-18-2025 Sex Male (finding) [facility] Start: 02-22-2025 Tobacco use and exposure Smokeless tobacco non-user [facility] Adult Depression Screening Assessment 0 [facility] Medical Equipment Procedure Code Equipment Code Equipment Origin al Text Equipment Identifier Dates Use to test bloo d sugar 3 times daily. [id number] Start: 02-22-2025 Use to test bloo d sugar 3 times daily. [id number] Start: 02-22-2025 1 each three gabe es a day with meals. Use with blood glucose test three times a day. Insulin Dep? Yes [id number] Start: 03-04-2025 End: 03-04-2026 Mental Status Date Assessment Result Facility 02-18-2025 Cognitive function Level Of Cons ciousness Awake;Alert;Appropriate;Follow s Commands [facility] [facility] Work Phone: 02-04-2025 Cognitive function Level Of Cons ciousness Awake;Alert;Appropriate;Follow s Commands [facility] Work Phone: 10-22-2022 Cognitive function Level Of Cons ciousness Awake;Alert;Appropriate;Follow s Commands [facility] Work Phone: Clinical Notes 02-05-2025 to 03-14-2025 Telephone Encounter - Tony Paris - 03/14/2025 3:52 PM EDTTelephone Encounter - Tony Paris - 03/14/2025 3:52 PM EDTBlanTony garcia - 03/14/2025 3:25 PM EDTPatient Instructions Note Date & Type Note Facility 03-14-2025 Telephone encount er Note Cpap submitted Via [employer]. [facility] 03-14-2025 Miscellaneous Notes Formattin g of this note might be different from the original. Cpap submitted Via [employer]. documented in this encounter [facility] 03-14-2025 Note HNO ID: [id number] Author: ?, ?, ? Service: ? Author Type: ? Type: Procedures Filed: 03/26/2025 20:50 Note Text: Location: left thigh and neck Patient presents for suture removal. The wound area was clean, dry, intact, and healing well with minimal erythema/tenderness and no discharge no warmth no tenderness no discharge . Contact dermatitis was absent . Sutures/rebel were removed without incident. Patient was advised to follow-up for any signs or symptoms of infection. [facility] 03-14-2025 Procedure note Location: left thigh and neck Patient presents for suture removal. The wound area was clean, dry, intact, and healing well with minimal erythema/tenderness and no discharge no warmth no tenderness no discharge . Contact dermatitis was absent . Sutures/rebel were removed without incident. Patient was advised to follow-up for any signs or symptoms of infection. [facility] 03-14-2025 Procedure note Location: left thigh and neck Patient presents for suture removal. The wound area was clean, dry, intact, and healing well with minimal erythema/tenderness and no discharge no warmth no tenderness no discharge . Contact dermatitis was absent . Sutures/rebel were removed without incident. Patient was advised to follow-up for any signs or symptoms of infection. documented in this encounter [facility] 03-14-2025 Note HNO ID: [id number] Author: RYLAN MILLER DO Service: ? Author Type: Physician Type: Progress Notes Filed: 03/26/2025 20:50 Note Text: [facility] Rylan Miller DO [address] [place] [address] Date of Evaluation: 03/14/2025 Patient Name: Jai Green : 1970 Chief Complaint: Patient presents with: Results: CT results and echo results. Patient requesting skin biopsy results Follow Up: 3 week recheck Suture Removal: Placed 02/28/25 Subjective Mr. Green is a 54 year old male who presents with the following complaint(s): The history is provided by the patient. No forestry contractor was used. Suture Removal Chronicity: follow up to have rebel removed after biopsy and skin tag removed. Pertinent negatives include no chest pain, no headaches and no shortness of breath. Hypertension This is a new problem. The current episode started more than 1 month ago. The problem has been gradually improving since onset. Pertinent negatives include no chest pain, headaches, palpitations or shortness of breath. Risk factors for coronary artery disease include obesity, male gender, diabetes mellitus and dyslipidemia. Review of Systems Constitutional: Negative for fatigue and unexpected weight change. HENT: Negative for nosebleeds. Eyes: Negative for redness and visual disturbance. Respiratory: Positive for apnea. Negative for cough and shortness of breath. Cardiovascular: Positive for leg swelling. Negative for chest pain and palpitations. Genitourinary: Negative for hematuria. Neurological: Negative for dizziness, weakness, light-headedness, numbness and headaches. Hematological: Does not bruise/bleed easily. Psychiatric/Behavioral: The patient is not nervous/anxious. 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 FAMILY HISTORY Problem Relation Age of Onset Hypertension Mother Diabetes Mother Stroke Mother No Known Problems Father No Known Problems Sister No Known Problems Sister No Known Problems Brother Hypertension Maternal Grandmother Diabetes Maternal Grandmother No Known Problems Maternal Grandfather No Known Problems Paternal Grandmother No Known Problems Paternal Grandfather Social History Tobacco Use Smoking status: Former Types: Cigarettes Smokeless tobacco: Never Vaping Use Vaping status: Never Used Substance Use Topics Alcohol use: Not Currently Comment: Recovering Alcoholic Drug use: Not Currently Types: Marijuana Current Outpatient Medications Medication Sig atorvastatin (LIPITOR) 40 mg tablet Take 1 tablet by mouth once daily. levothyroxine (SYNTHROID) 25 mcg tablet Take 1 tablet by mouth once daily. clobetasol (TEMOVATE) 0.05 % ointment Apply to affected area twice daily Tuesday to Tuesday as needed. Not for face, armpits or groin calcipotriene (DOVONEX) 0.005 % oint Apply to any affected areas two times daily on sat and sun. metoprolol succinate ER (TOPROL XL) 25 mg 24 hr tablet Take 1 tablet by mouth once daily. losartan-hydroCHLOROthiazide (HYZAAR) 100-25 mg per tablet Take 1 tablet by mouth once daily. meclizine (ANTIVERT) 25 mg tab TAKE 1 TABLET BY MOUTH FOUR TIMES DAILY NEEDED for dizziness metFORMIN (GLUCOPHAGE) 500 mg tablet Take 1 tablet by mouth every 12 hours. lancets (ULTRA THIN PLUS LANCETS) 33 gauge 1 each three times a day with meals. Use with blood glucose test three times a day. Insulin Dep? Yes semaglutide (OZEMPIC) 0.25 mg or 0.5 mg (2 mg/3 mL) pen Inject 0.25 mg subcutaneously one time a week. Pramoxine-Hydrocortisone (ANALPRAM-HC) 1-1 % rectal cream by RECTAL route two times a day. semaglutide (OZEMPIC) 0.25 mg or 0.5 mg (2 mg/3 mL) pen Inject 0.25 mg subcutaneously one time a week. Blood-Glucose Meter Use to test blood sugar 3 times daily. Lancets Use to test blood sugar 3 times daily. blood sugar diagnostic (BLOOD GLUCOSE TEST) test strip Use to test blood sugar 3 times daily. Blood-Glucose Sensor (FREESTYLE MALENA 3 PLUS SENSOR) bernabe Use to check blood sugar 3 times daily. No current facility-administered medications for this visit. I have confirmed and edited as necessary the past medical, family and social histories, HPI, and ROS obtained by others. Objective BP 136/84 Pulse 73 Temp 97.5 Ht 6' 0 (1.83m) Wt 314 lb (142.4kg) SpO2 96% BMI 42.58 kg/(m2). Physical Exam Vitals and nursing note reviewed. Constitutional: General: He is not in acute distress. Appearance: Normal appearance. He is well-developed. He is morbidly obese. He is not ill-appearing. HENT: Head: Normocephalic. Nose: Nose normal. Mouth/Throat: Pharynx: Uvula midline. Eyes: General: Lids are no (more content not included)... [facility] 03-14-2025 History of Presen t illness Narrative Images from the original note were not included. [facility] [address] [place] [address] Date of Evaluation: 03/14/2025 Patient Name: Jai Green : 1970 Chief Complaint: Patient presents with: Results: CT results and echo results. Patient requesting skin biopsy results Follow Up: 3 week recheck Suture Removal: Placed 02/28/25 Subjective Mr. Green is a 54 year old male who presents with the following complaint(s): The history is provided by the patient. No forestry contractor was used. Suture Removal Chronicity: follow up to have rebel removed after biopsy and skin tag removed. Pertinent negatives include no chest pain, no headaches and no shortness of breath. Hypertension This is a new problem. The current episode started more than 1 month ago. The problem has been gradually improving since onset. Pertinent negatives include no chest pain, headaches, palpitations or shortness of breath. Risk factors for coronary artery disease include obesity, male gender, diabetes mellitus and dyslipidemia. Review of Systems Constitutional: Negative for fatigue and unexpected weight change. HENT: Negative for nosebleeds. Eyes: Negative for redness and visual disturbance. Respiratory: Positive for apnea. Negative for cough and shortness of breath. Cardiovascular: Positive for leg swelling. Negative for chest pain and palpitations. Genitourinary: Negative for hematuria. Neurological: Negative for dizziness, weakness, light-headedness, numbness and headaches. Hematological: Does not bruise/bleed easily. Psychiatric/Behavioral: The patient is not nervous/anxious. 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 FAMILY HISTORY Problem Relation Age of Onset Hypertension Mother Diabetes Mother Stroke Mother No Known Problems Father No Known Problems Sister No Known Problems Sister No Known Problems Brother Hypertension Maternal Grandmother Diabetes Maternal Grandmother No Known Problems Maternal Grandfather No Known Problems Paternal Grandmother No Known Problems Paternal Grandfather Social History Tobacco Use Smoking status: Former Types: Cigarettes Smokeless tobacco: Never Vaping Use Vaping status: Never Used Substance Use Topics Alcohol use: Not Currently Comment: Recovering Alcoholic Drug use: Not Currently Types: Marijuana Current Outpatient Medications Medication Sig atorvastatin (LIPITOR) 40 mg tablet Take 1 tablet by mouth once daily. levothyroxine (SYNTHROID) 25 mcg tablet Take 1 tablet by mouth once daily. clobetasol (TEMOVATE) 0.05 % ointment Apply to affected area twice daily Tuesday to Tuesday as needed. Not for face, armpits or groin calcipotriene (DOVONEX) 0.005 % oint Apply to any affected areas two times daily on sat and sun. metoprolol succinate ER (TOPROL XL) 25 mg 24 hr tablet Take 1 tablet by mouth once daily. losartan-hydroCHLOROthiazide (HYZAAR) 100-25 mg per tablet Take 1 tablet by mouth once daily. meclizine (ANTIVERT) 25 mg tab TAKE 1 TABLET BY MOUTH FOUR TIMES DAILY NEEDED for dizziness metFORMIN (GLUCOPHAGE) 500 mg tablet Take 1 tablet by mouth every 12 hours. lancets (ULTRA THIN PLUS LANCETS) 33 gauge 1 each three times a day with meals. Use with blood glucose test three times a day. Insulin Dep? Yes semaglutide (OZEMPIC) 0.25 mg or 0.5 mg (2 mg/3 mL) pen Inject 0.25 mg subcutaneously one time a week. Pramoxine-Hydrocortisone (ANALPRAM-HC) 1-1 % rectal cream by RECTAL route two times a day. semaglutide (OZEMPIC) 0.25 mg or 0.5 mg (2 mg/3 mL) pen Inject 0.25 mg subcutaneously one time a week. Blood-Glucose Meter Use to test blood sugar 3 times daily. Lancets Use to test blood sugar 3 times daily. blood sugar diagnostic (BLOOD GLUCOSE TEST) test strip Use to test blood sugar 3 times daily. Blood-Glucose Sensor (FREESTYLE MALENA 3 PLUS SENSOR) bernabe Use to check blood sugar 3 times daily. No current facility-administered medications for this visit. I have confirmed and edited as necessary the past medical, family and social histories, HPI, and ROS obtained by others. Objective BP 136/84 Pulse 73 Temp 97.5 Ht 6' 0 (1.83m) Wt 314 lb (142.4kg) SpO2 96% BMI 42.58 kg/(m^2). Physical Exam Vitals and nursing note reviewed. Constitutional: General: He is not in acute distress. Appearance: Normal appearance. He is well-developed. He is morbidly obese. He is not ill-appearing. HENT: Head: Normocephalic. Nose: Nose normal. Mouth/Throat: Pharynx: Uvula midline. Eyes: General: Lids are normal. Vision grossly intact. Gaze aligned appropriately. Extraocular Movements: Extraocular movements intact. Conjunctiva/sclera: Conjunctivae normal. Pupils: Pupils are equal, round, and reactive to light. Neck: Thyroid: No thyroid mass, thyromegaly or thyroid tenderness. Vascular: No carotid bruit. Trachea: Trachea and phonation normal. Cardiovascular: Rate and Rhythm: Normal rate and regular rhythm. Pulses: Normal pulses. Heart sounds: Normal heart sounds. Musculoskeletal: General: Normal range of motion. Right shoulder: Normal. Left shoulder: Normal. Cervical back: Normal, full passive range of motion without pain and neck supple. No tenderness. No spinous process tenderness. Thoracic back: Normal. Lumbar back: Normal. Right knee: Normal. Left knee: Normal. Right lower leg: No edema. Left lower leg: No edema. Lymphadenopathy: Cervical: No cervical adenopathy. Skin: General: Skin is warm and dry. Comments: Suture removal left right thigh skin tag removal healing. Suture removal neck after biopsy Neurological: General: No focal deficit present. Mental Status: He is alert and oriented to person, place, and time. Mental status is at baseline. Sensory: Sensation is intact. Motor: Motor function is intact. Psychiatric: Attention and Perception: Attention and perception normal. Mood and Affect: Mood normal. Speech: Speech normal. Behavior: Behavior normal. Thought Content: Thought content normal. Judgment: Judgment normal. Data Reviewed: Most recent labs most recent skin biopsy and echo. ASSESSMENT/PLAN: 1. Primary hypertension - ICD9: 401.9, ICD10: I10 (primary diagnosis) - Improving control - Continue current medications - Recommend home blood pressure monitoring, to bring results to next visit - Encouraged sodium restriction, DASH or Mediterranean diet - Recommend regular aerobic exercise 2. Type 2 diabetes mellitus without complication, without long-term current use of insulin (HCC) - ICD9: 250.00, ICD10: E11.9 - Barriers to control: diet adherence and lack of exercise - Continue current medications - Blood glucose monitoring on a three times daily schedule - Counseled on healthy diet and regular exercise - Discussed need for and benefit of weight loss. BMI 42.59 kg/(m^2) 3. MARIMAR (obstructive sleep apnea) - ICD9: 327.23, ICD10: G47.33 - Positive sleep study from 03/13/25 - Order Cpap - CPAP DEVICE 4. 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 5. Visit for suture removal - ICD9: V58.32, ICD10: Z48.02 - sutures removed. See procedure note. 6. BMI 40.0-44.9, adult (HCC) - ICD9: V85.41, ICD10: Z68.41 Rylan Miller, DO Return in about 3 months (around 06/13/2025) for Blood pressure check, diabetic follow-up. Attestation: Scribe Attestation: The patient is seen and examined by Dr. Miller and the following reflects his/her service. Scribed by Faith Henderson March 14, 2025 11:16 AMProvider Attestation: I, Rylan Miller DO personally performed the services described in this documentation. All medical record entries made by the scribe were at my direction and in my presence. I have reviewed the chart and discharge instructions (if applicable) and agree that the record reflects my personal performance and is accurate and complete. Electronically Signed: Rylan Miller DO, March 14, 2025 11:26 AM documented in this encounter [facility] 03-12-2025 History of Presen t illness Narrative Radiology Service Progress Note PATIENT NAME: Jai Green DATE OF SERVICE: March 12, 2025 TIME: 12:24 PM PATIENT IDENTITY VERIFICATION COMPLETED USING TWO (2) IDENTIFIERS: Name and Date of confirmed by patient verbally. FALL SCREENING: Has the patient had 2 falls in the last year or 1 fall with injury or currently using an Ambulatory Assistive Device (Walker, Cane, Wheelchair, Crutches, etc.)? No PATIENT GENDER DATA: Assigned male at PATIENT RELEVANT IMPLANT DATA REVIEWED: Yes PATIENT PRESENTS WITH AN IMPLANTABLE OR ATTACHED SKIVER HEEL TAP: No RADIOLOGY DEPARTMENT: CT; Exam(s) Completed: Neck PERIPHERAL IV DATA: Not applicable SIGNED BY: RT Anahi(Myrna) March 12, 2025 12:24 PM documented in this encounter [facility] 03-12-2025 Note HNO ID: [id number] Author: ANGELA ZAMORA RT(R) Service: ? Author Type: Head Esthetician Type: Progress Notes Filed: 03/12/2025 12:25 Note Text: Radiology Service Progress Note PATIENT NAME: Jai Green DATE OF SERVICE: March 12, 2025 TIME: 12:24 PM PATIENT IDENTITY VERIFICATION COMPLETED USING TWO (2) IDENTIFIERS: Name and Date of confirmed by patient verbally. FALL SCREENING: Has the patient had 2 falls in the last year or 1 fall with injury or currently using an Ambulatory Assistive Device (Walker, Cane, Wheelchair, Crutches, etc.)? No PATIENT GENDER DATA: Assigned male at PATIENT RELEVANT IMPLANT DATA REVIEWED: Yes PATIENT PRESENTS WITH AN IMPLANTABLE OR ATTACHED SKIVER HEEL TAP: No RADIOLOGY DEPARTMENT: CT; Exam(s) Completed: Neck PERIPHERAL IV DATA: Not applicable SIGNED BY: RT Anahi(R) March 12, 2025 12:24 PM [facility] 03-08-2025 Telephone encount er Note JAI GREEN (German: [id number]) Ozempic (0.25 or 0.5 MG/DOSE) 2MG/3ML pen-injectors Form [employer] Electronic PA Form (2016 NCPDP) Created 2 hours ago Sent to Plan 2 hours ago Plan Response 2 hours ago Submit Clinical Questions 2 hours ago Determination Favorable 1 hour ago Message from Plan Your PA request has been approved. Additional information will be provided in the approval communication. (Message 1147). Authorization Expiration Date: March 07, 2028. [facility] 03-08-2025 Miscellaneous Notes Formattin g of this note might be different from the original. JAI GREEN (German: [id number]) Ozempic (0.25 or 0.5 MG/DOSE) 2MG/3ML pen-injectors Form [employer] Electronic PA Form (2016 NCPDP) Created 2 hours ago Sent to Plan 2 hours ago Plan Response 2 hours ago Submit Clinical Questions 2 hours ago Determination Favorable 1 hour ago Message from Plan Your PA request has been approved. Additional information will be provided in the approval communication. (Message 1145). Authorization Expiration Date: March 07, 2028. JAI GREEN (German: [id number]) Ozempic (0.25 or 0.5 MG/DOSE) 2MG/3ML pen-injectors Form [employer] Electronic PA Form (2016 NCPDP) Created 41 minutes ago Sent to Plan 31 minutes ago Plan Response 31 minutes ago Submit Clinical Questions 4 minutes ago Determination Wait for Determination [facility] a determination. documented in this encounter [facility] 03-08-2025 Telephone encount er Note Prior authorization resubmitted to insurance with lab results [facility] 03-08-2025 Miscellaneous Notes Formattin g of this note might be different from the original. Prior authorization resubmitted to insurance with lab results Dont understand Prior auth submitted through [employer] for Ozempic. Insurance denied Ozempic. Paper copy to be scanned into chart or document attached to medication in medication tab. Please advise. documented in this encounter [facility] 03-08-2025 Telephone encount er Note JAI GREEN (German: [id number]) Ozempic (0.25 or 0.5 MG/DOSE) 2MG/3ML pen-injectors Form [facility] Electronic PA Form (2017 NCPDP) Created 41 minutes ago Sent to Plan 31 minutes ago Plan Response 31 minutes ago Submit Clinical Questions 4 minutes ago Determination Wait for Determination Please [facility] for [facility] to [facility] a determination. [facility] 03-08-2025 Telephone encount er Note Dont understand [facility] 03-06-2025 Telephone encount er Note Prior auth submitted through [employer] for Ozempic. Insurance denied Ozempic. Paper copy to be scanned into chart or document attached to medication in medication tab. Please advise. [facility] 03-04-2025 Note HNO ID: [id number] Author: RYLAN MILLER DO Service: ? Author Type: Physician Type: Progress Notes Filed: 03/06/2025 21:28 Note Text: [facility] [place] Rylan Miller DO [address] [place] [address] Date of Evaluation: 03/04/2025 Patient Name: Jai Green : 1970 Chief Complaint: Patient presents with: Diabetes: Running high 120-160s Rectal Problem Eye Problem: Eyes watering more recently Edema: Bilat ankles Right side more Results: Biopsy at Derm - last Large skin tag removed - stitches Medication Problem: Metformin - would like to discuss options Thinks it may be causing swelling Medication Follow-up: Needs new rx for lancets - current rx does not work Thyroid Problem: Labs off Hyperlipidemia: Labs off Subjective Mr. Green is a 54 year old male who presents with the following complaint(s): The history is provided by the patient and a significant other. Diabetes He presents for his follow-up diabetic visit. He has type 2 diabetes mellitus. Pertinent negatives for hypoglycemia include no dizziness, headaches, nervousness/anxiousness, seizures or tremors. Pertinent negatives for diabetes include no chest pain, no fatigue and no weakness. Current diabetic treatment includes oral agent (monotherapy). He is following a generally unhealthy diet. When asked about meal planning, he reported none. He never participates in exercise. His breakfast blood glucose range is generally 130-140 mg/dl. Eye Problem This is a recurrent problem. The problem occurs daily. Pertinent negatives include no abdominal pain, chest pain, coughing, fatigue, headaches, nausea, numbness or weakness. Associated symptoms comments: Watery eyes . Edema This is a recurrent problem. The problem occurs daily. The problem has been gradually improving. Pertinent negatives include no abdominal pain, chest pain, coughing, fatigue, headaches, nausea, numbness or weakness. Associated symptoms comments: Swelling to lower extremities . Thyroid Problem Presents for follow-up visit. Patient reports no anxiety, fatigue, palpitations or tremors. Review of Systems Constitutional: Negative for activity change, appetite change, fatigue and unexpected weight change. HENT: Negative for nosebleeds. Eyes: Negative for redness and visual disturbance. Respiratory: Negative for apnea, cough and shortness of breath. Cardiovascular: Positive for leg swelling. Negative for chest pain and palpitations. Gastrointestinal: Positive for rectal pain (with blood after hard bowel movement.). Negative for abdominal pain and nausea. Genitourinary: Negative for hematuria. Neurological: Negative for dizziness, tremors, seizures, weakness, light-headedness, numbness and headaches. Hematological: Does not bruise/bleed easily. Psychiatric/Behavioral: Negative for agitation, behavioral problems, decreased concentration, dysphoric mood, hallucinations, self-injury, sleep disturbance and suicidal ideas. The patient is not nervous/anxious and is not hyperactive. 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 FAMILY HISTORY Problem Relation Age of Onset Hypertension Mother Diabetes Mother Stroke Mother No Known Problems Father No Known Problems Sister No Known Problems Sister No Known Problems Brother Hypertension Maternal Grandmother Diabetes Maternal Grandmother No Known Problems Maternal Grandfather No Known Problems Paternal Grandmother No Known Problems Paternal Grandfather Social History Tobacco Use Smoking status: Former Types: Cigarettes Smokeless tobacco: Never Vaping Use Vaping status: Never Used Substance Use Topics 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 metoprolol succinate ER (TOPROL XL) 25 mg 24 hr tablet Take 1 tablet by mouth once daily. losartan-hydroCHLOROthiazide (HYZAAR) 100-25 mg per tablet Take 1 tablet by mouth once daily. metFORMIN (GLUCOPHAGE) 500 mg tablet Take 1 tablet by mouth every 12 hours. lancets (ULTRA THIN PLUS LANCETS) 33 gauge 1 each three times a day with meals. Use with blood glucose test three times a day. Insulin Dep? Yes semaglutide (OZEMPIC) 0.25 mg or 0.5 mg (2 mg/3 mL) pen Inject 0.25 mg subcutaneously one time a week. Blood Pressure Kit-Extra Large kit Use as directed for blood pressure monitoring atorvastatin (LIPITOR) 40 mg tablet Take 1 tablet by mouth once daily. levothyroxine (SYNTHROID) 25 mcg tablet Take 1 tablet by mouth onc (more content not included)... [facility] 03-04-2025 History of Presen t illness Narrative Images from the original note were not included. [facility] Medicine Teresita Miller DO [address] [place] [address] Date of Evaluation: 03/04/2025 Patient Name: Jai Green : 1970 Chief Complaint: Patient presents with: Diabetes: Running high 120-160s Rectal Problem Eye Problem: Eyes watering more recently Edema: Bilat ankles Right side more Results: Biopsy at Derm - last Large skin tag removed - stitches Medication Problem: Metformin - would like to discuss options Thinks it may be causing swelling Medication Follow-up: Needs new rx for lancets - current rx does not work Thyroid Problem: Labs off Hyperlipidemia: Labs off Subjective Mr. Green is a 54 year old male who presents with the following complaint(s): The history is provided by the patient and a significant other. Diabetes He presents for his follow-up diabetic visit. He has type 2 diabetes mellitus. Pertinent negatives for hypoglycemia include no dizziness, headaches, nervousness/anxiousness, seizures or tremors. Pertinent negatives for diabetes include no chest pain, no fatigue and no weakness. Current diabetic treatment includes oral agent (monotherapy). He is following a generally unhealthy diet. When asked about meal planning, he reported none. He never participates in exercise. His breakfast blood glucose range is generally 130-140 mg/dl. Eye Problem This is a recurrent problem. The problem occurs daily. Pertinent negatives include no abdominal pain, chest pain, coughing, fatigue, headaches, nausea, numbness or weakness. Associated symptoms comments: Watery eyes . Edema This is a recurrent problem. The problem occurs daily. The problem has been gradually improving. Pertinent negatives include no abdominal pain, chest pain, coughing, fatigue, headaches, nausea, numbness or weakness. Associated symptoms comments: Swelling to lower extremities . Thyroid Problem Presents for follow-up visit. Patient reports no anxiety, fatigue, palpitations or tremors. Review of Systems Constitutional: Negative for activity change, appetite change, fatigue and unexpected weight change. HENT: Negative for nosebleeds. Eyes: Negative for redness and visual disturbance. Respiratory: Negative for apnea, cough and shortness of breath. Cardiovascular: Positive for leg swelling. Negative for chest pain and palpitations. Gastrointestinal: Positive for rectal pain (with blood after hard bowel movement.). Negative for abdominal pain and nausea. Genitourinary: Negative for hematuria. Neurological: Negative for dizziness, tremors, seizures, weakness, light-headedness, numbness and headaches. Hematological: Does not bruise/bleed easily. Psychiatric/Behavioral: Negative for agitation, behavioral problems, decreased concentration, dysphoric mood, hallucinations, self-injury, sleep disturbance and suicidal ideas. The patient is not nervous/anxious and is not hyperactive. 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 FAMILY HISTORY Problem Relation Age of Onset Hypertension Mother Diabetes Mother Stroke Mother No Known Problems Father No Known Problems Sister No Known Problems Sister No Known Problems Brother Hypertension Maternal Grandmother Diabetes Maternal Grandmother No Known Problems Maternal Grandfather No Known Problems Paternal Grandmother No Known Problems Paternal Grandfather Social History Tobacco Use Smoking status: Former Types: Cigarettes Smokeless tobacco: Never Vaping Use Vaping status: Never Used Substance Use Topics 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 metoprolol succinate ER (TOPROL XL) 25 mg 24 hr tablet Take 1 tablet by mouth once daily. losartan-hydroCHLOROthiazide (HYZAAR) 100-25 mg per tablet Take 1 tablet by mouth once daily. metFORMIN (GLUCOPHAGE) 500 mg tablet Take 1 tablet by mouth every 12 hours. lancets (ULTRA THIN PLUS LANCETS) 33 gauge 1 each three times a day with meals. Use with blood glucose test three times a day. Insulin Dep? Yes semaglutide (OZEMPIC) 0.25 mg or 0.5 mg (2 mg/3 mL) pen Inject 0.25 mg subcutaneously one time a week. Blood Pressure Kit-Extra Large kit Use as directed for blood pressure monitoring atorvastatin (LIPITOR) 40 mg tablet Take 1 tablet by mouth once daily. levothyroxine (SYNTHROID) 25 mcg tablet Take 1 tablet by mouth once daily. Pramoxine-Hydrocortisone (ANALPRAM-HC) 1-1 % rectal cream by RECTAL route two times a day. clobetasol (TEMOVATE) 0.05 % ointment Apply to affected area twice daily Tuesday to Tuesday as needed. Not for face, armpits or groin calcipotriene (DOVONEX) 0.005 % oint Apply to any affected areas two times daily on sat and sun. Blood-Glucose Meter Use to test blood sugar 3 times daily. Lancets Use to test blood sugar 3 times daily. blood sugar diagnostic (BLOOD GLUCOSE TEST) test strip Use to test blood sugar 3 times daily. Blood-Glucose Sensor (FREESTYLE MALENA 3 PLUS SENSOR) bernabe Use to check blood sugar 3 times daily. meclizine (ANTIVERT) 25 mg tab TAKE 1 TABLET BY MOUTH FOUR TIMES DAILY NEEDED for dizziness No current facility-administered medications for this visit. I have confirmed and edited as necessary the past medical, family and social histories, HPI, and ROS obtained by others. Objective BP 138/88 Pulse 67 Ht 6' 0 (1.83m) Wt 312 lb (141.5kg) SpO2 93% BMI 42.31 kg/(m^2). Physical Exam Vitals and nursing note reviewed. Constitutional: General: He is not in acute distress. Appearance: Normal appearance. He is well-developed. He is morbidly obese. He is not ill-appearing. HENT: Head: Normocephalic. Right Ear: Tympanic membrane, ear canal and external ear normal. There is no impacted cerumen. Left Ear: Tympanic membrane, ear canal and external ear normal. There is no impacted cerumen. Nose: Nose normal. Mouth/Throat: Mouth: Mucous membranes are moist. Dentition: Abnormal dentition. Gingival swelling present. Pharynx: Oropharynx is clear. Uvula midline. No oropharyngeal exudate or posterior oropharyngeal erythema. Eyes: General: Lids are normal. Vision grossly intact. Gaze aligned appropriately. No scleral icterus. Right eye: No discharge. Left eye: No discharge. Extraocular Movements: Extraocular movements intact. Conjunctiva/sclera: Conjunctivae normal. Pupils: Pupils are equal, round, and reactive to light. Neck: Thyroid: No thyroid mass, thyromegaly or thyroid tenderness. Vascular: No carotid bruit. Trachea: Trachea and phonation normal. Cardiovascular: Rate and Rhythm: Normal rate and regular rhythm. Pulses: Normal pulses. Heart sounds: Normal heart sounds. Pulmonary: Effort: Pulmonary effort is normal. Breath sounds: Normal breath sounds. Abdominal: General: Abdomen is flat. Bowel sounds are normal. Palpations: Abdomen is soft. Musculoskeletal: General: Normal range of motion. Right shoulder: Normal. Left shoulder: Normal. Cervical back: Normal, full passive range of motion without pain and neck supple. No tenderness. No spinous process tenderness. Thoracic back: Normal. Lumbar back: Normal. Right knee: Normal. Left knee: Normal. Right lower leg: Swelling present. Edema present. Left lower leg: Swelling present. Edema present. Lymphadenopathy: Cervical: No cervical adenopathy. Skin: General: Skin is warm and dry. Neurological: General: No focal deficit present. Mental Status: He is alert and oriented to person, place, and time. Mental status is at baseline. Sensory: Sensation is intact. Motor: Motor function is intact. Psychiatric: Attention and Perception: Attention and perception normal. Mood and Affect: Mood normal. Speech: Speech normal. Behavior: Behavior normal. Thought Content: Thought content normal. Judgment: Judgment normal. Data Reviewed: Most recent labs ASSESSMENT/PLAN: 1. Type 2 diabetes mellitus without complication, without long-term current use of insulin ([facility]) - ICD9: 250.00, ICD10: E11.9 (primary diagnosis) - New diagnosis - Continue current medications - Add Ozempic to help with Blood sugar control and diet/weight - Blood glucose monitoring on a three times daily schedule - Referral to Ophthalmology/optometry for diabetic eye exam Podiatry for diabetic foot complications - Counseled on healthy diet and regular exercise - Discussed need for and benefit of weight loss. BMI 42.31 kg/(m^2) - Follow up in 3 weeks, sooner should any other issues arise. - LANCETS 33 GAUGE - ALBUMIN/CREATININE RATIO, URINE - SEMAGLUTIDE 0.25 MG OR 0.5 MG (2 MG/3 ML) SUBCUTANEOUS PEN INJECTOR - CONSULT TO OPHTHALMOLOGY 2. Psoriasis - ICD9: 696.1, ICD10: L40.9 - newly managed by Dermatology. 3. Primary hypertension - ICD9: 401.9, ICD10: I10 - Improving control - Continue current medications - Recommend home blood pressure monitoring, to bring results to next visit - Encouraged sodium restriction, DASH or Mediterranean diet - Recommend regular aerobic exercise - BLOOD PRESSURE KIT-EXTRA LARGE CUFF 4. Bilateral leg edema - ICD9: 782.3, ICD10: R60.0 - Improving, advised to elevate legs, reduce all salt. Wear compression hose daily. 5. Varicose veins of both legs with edema - ICD9: 454.8, ICD10: I83.893 - elevate legs, Reduce salt. Wear compression hose daily. 6. Other specified hypothyroidism - ICD9: 244.8, ICD10: E03.8 - reviewed recent Blood work - Start Levothyroxine 25 mcg - Check TSH in 3-4 months. - LEVOTHYROXINE 25 MCG TABLET - THYROID STIMULATING HORMONE 7. Mixed hyperlipidemia - ICD9: 272.2, ICD10: E78.2 - Uncontrolled - Control undetermined, due for labs - New diagnosis - Start atorvastatin (Lipitor) - Counseled on healthy diet and regular exercise - Recheck Liver and Lipid in 3 months. - ATORVASTATIN 40 MG TABLET - LIPID PANEL, FASTING - HEPATIC FUNCTION PNL 8. Rectal bleeding - ICD9: 569.3, ICD10: K62.5 - Suspect tear with bowel movement. - Start rectal cream. - HYDROCORTISONE-PRAMOXINE 1 %-1 % RECTAL CREAM 9. Straining during bowel movements - ICD9: 787.99, ICD10: R19.8 10. Gingivitis - ICD9: 523.10, ICD10: K05.10 - Refer to Dentist. - CONSULT TO DENTISTRY 11. Skin tag - ICD9: 701.9, ICD10: L91.8 - newly removed by dermatology, return for suture removal. 12. BMI 40.0-44.9, adult (HCC) - ICD9: V85.41, ICD10: Z68.41 Return if symptoms worsen or fail to improve. Attestation: Scribe Attestation: The patient is seen and examined by Dr. Miller and the following reflects his/her service. Scribed by Faith Henderson March 04, 2025 3:21 PMProvider Attestation: I, Rylan Miller DO personally performed the services described in this documentation. All medical record entries made by the scribe were at my direction and in my presence. I have reviewed the chart and discharge instructions (if applicable) and agree that the record reflects my personal performance and is accurate and complete. Electronically Signed: Rylan Miller DO, March 04, 2025 9:28 PM documented in this encounter [facility] 02-28-2025 Instructions Michelle Esquivel [facility] - 02/28/2025 12:30 PM EDT CARE OF BIOPSY SITE 1. Wash your hands with soap and water. 2. Cleanse the biopsy site with antibacterial soap. 3. Thoroughly dry the area and apply a small amount of Vaseline or Aquaphor to keep area greasy at all times (this prevents a scab from forming). 4. PLEASE DO NOT use polysporin, Bacitracin, triple antibiotic or similar ointments. 5. Place a small dressing or band-aid over the wound until the wound is healed. (Studies show that wounds heal better when covered with ointment and a dressing). Stitches are to be removed in 10 days (if applicable) If you have any questions or concerns, please contact the office at [phone]. documented in this encounter [facility] 02-28-2025 Note HNO ID: [id number] Author: RULA AQUINO MD Service: ? Author Type: Physician Type: Progress Notes Filed: 04/01/2025 23:20 Note Text: New patient CHIEF COMPLAINT: New Patient and Psoriasis HISTORY OF PRESENT ILLNESS: Jai Green is a 54 year old male who presents to follow up for rash located on the left and right hand, feet, and back of neck, right and left lower legs. Present for: psoriasis present for years Skin lesions are sometimes itchy. Condition is same. Patient also reports new skin thickening and hardening on his upper back. Asymptomatic. Reports he has recently been diagnosed with DM2 and HTN, patient did not used to see a PCP until recently so he is unsure how long he has had diabetes. Patient does not have joint pain. Current treatment: None Past treatments: None Pertinent Past Medical History: Psoriatic arthritis: No Inflammatory bowel disease: No Multiple sclerosis: No Tuberculosis or other major infections (i.e. HIV, hepatitis): No History of cancer/ skin cancer: No History of lupus: No History of chronic heart disease: No Social History Tobacco use: No Alcohol use: No Occupation: [employer] Past Medical History PAST MEDICAL HISTORY Diagnosis Date Diabetes (HCC) HTN (hypertension) Medications Current Outpatient Medications Medication Sig semaglutide (OZEMPIC) 0.25 mg or 0.5 mg (2 mg/3 mL) pen Inject 0.25 mg subcutaneously one time a week. metoprolol succinate ER (TOPROL XL) 25 mg 24 hr tablet Take 1 tablet by mouth once daily. Blood-Glucose Meter Use to test blood sugar 3 times daily. Lancets Use to test blood sugar 3 times daily. blood sugar diagnostic (BLOOD GLUCOSE TEST) test strip Use to test blood sugar 3 times daily. Blood-Glucose Sensor (FREESTYLE MALENA 3 PLUS SENSOR) bernabe Use to check blood sugar 3 times daily. amLODIPine (NORVASC) 10 mg tablet Take 1 tablet by mouth once daily. losartan-hydroCHLOROthiazide (HYZAAR) 100-25 mg per tablet Take 1 tablet by mouth once daily. meclizine (ANTIVERT) 25 mg tab TAKE 1 TABLET BY MOUTH FOUR TIMES DAILY NEEDED for dizziness metFORMIN (GLUCOPHAGE) 500 mg tablet Take 1 tablet by mouth every 12 hours. No current facility-administered medications for this visit. Allergies ALLERGIES No Known Allergies REVIEW OF SYSTEMS: Constitutional: Denies fever, chills, unintentional weight loss Skin as per HPI PHYSICAL EXAMINATION: Well appearing, pleasant, in NAD Alert and oriented x3 Mood and affect: normal Skin exam performed including face, neck, chest, back, abdomen, bilateral upper extremities, bilateral lower extremities, buttocks, and genitals. Pertinent findings include: - well demarcated erythematous scaly plaques with white micaceous scale involving anterior legs and hands Neck - Posterior Indurated erythematous plaques Left Medial Thigh Pedunculated skin color nodule ASSESSMENT AND PLAN: Psoriasis vulgaris Medical complexity: chronic illness with exacerbation and/or progression - BSA: 3-4% - Overall, flared - Discussed psoriasis is a chronic problem that may come and go - Discussed psoriasis systemic inflammation increases risks of heart disease, HTN, diabetes mellitus; encouraged routine preventative care with PCP as well as healthy life style. - Discussed that infections, stress, damage to the skin and alcohol may trigger flares of psoriasis Start: - clobetasol (TEMOVATE) 0.05 % ointment; Apply to affected area twice daily Tuesday to Tuesday as needed. Not for face, armpits or groin. Discussed extended use of topical steroids can cause thinning of skin, atrophy, telangiectasias, striae or pigmentary changes. - calcipotriene (DOVONEX) 0.005 % oint; Apply to any affected areas two times daily on sat and sun. Proper use of topical steroid discussed as well as possible side effects of over use including skin thinning, atrophy, telangiectasias, and striae. 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 Based on history, clinical presentation, and/or distribution, favor scleredema. Differential diagnoses include other sclerosing disorders. Potential etiology, course, prognosis, and treatment option(s) reviewed. Risks and benefits of trial of topical therapy versus skin biopsy discussed. Patient agreed to biopsy today. Start: - clobetasol (TEMOVATE) 0.05 % ointment; Apply to affected area twice daily Tuesday to Tuesday as needed. Not for face, armpits or groin. Discussed extended use of topical steroids can cause thinning of skin, atrophy, telangiectasias, striae or pigmentary changes. - calcipotriene (DOVONEX) 0.005 % oint; Apply to any affected areas two times daily on sat and sun. PROCEDURE NOTE: Punch Biopsy to establish and confirm diagnosis. Photo taken: Yes Risks, benefits, alternatives and personnel required for punch biopsy reviewed with patient including scarring and infectio (more content not included)... [facility] 02-28-2025 History of Presen t illness Narrative New patient CHIEF COMPLAINT: New Patient and Psoriasis HISTORY OF PRESENT ILLNESS: Jai Green is a 54 year old male who presents to follow up for rash located on the left and right hand, feet, and back of neck, right and left lower legs. Present for: psoriasis present for years Skin lesions are sometimes itchy. Condition is same. Patient also reports new skin thickening and hardening on his upper back. Asymptomatic. Reports he has recently been diagnosed with DM2 and HTN, patient did not used to see a PCP until recently so he is unsure how long he has had diabetes. Patient does not have joint pain. Current treatment: None Past treatments: None Pertinent Past Medical History: Psoriatic arthritis: No Inflammatory bowel disease: No Multiple sclerosis: No Tuberculosis or other major infections (i.e. HIV, hepatitis): No History of cancer/ skin cancer: No History of lupus: No History of chronic heart disease: No Social History Tobacco use: No Alcohol use: No Occupation: [employer] Past Medical History PAST MEDICAL HISTORY Diagnosis Date Diabetes (HCC) HTN (hypertension) Medications Current Outpatient Medications Medication Sig semaglutide (OZEMPIC) 0.25 mg or 0.5 mg (2 mg/3 mL) pen Inject 0.25 mg subcutaneously one time a week. metoprolol succinate ER (TOPROL XL) 25 mg 24 hr tablet Take 1 tablet by mouth once daily. Blood-Glucose Meter Use to test blood sugar 3 times daily. Lancets Use to test blood sugar 3 times daily. blood sugar diagnostic (BLOOD GLUCOSE TEST) test strip Use to test blood sugar 3 times daily. Blood-Glucose Sensor (FREESTYLE MALENA 3 PLUS SENSOR) bernabe Use to check blood sugar 3 times daily. amLODIPine (NORVASC) 10 mg tablet Take 1 tablet by mouth once daily. losartan-hydroCHLOROthiazide (HYZAAR) 100-25 mg per tablet Take 1 tablet by mouth once daily. meclizine (ANTIVERT) 25 mg tab TAKE 1 TABLET BY MOUTH FOUR TIMES DAILY NEEDED for dizziness metFORMIN (GLUCOPHAGE) 500 mg tablet Take 1 tablet by mouth every 12 hours. No current facility-administered medications for this visit. Allergies ALLERGIES No Known Allergies REVIEW OF SYSTEMS: Constitutional: Denies fever, chills, unintentional weight loss Skin as per HPI PHYSICAL EXAMINATION: Well appearing, pleasant, in NAD Alert and oriented x3 Mood and affect: normal Skin exam performed including face, neck, chest, back, abdomen, bilateral upper extremities, bilateral lower extremities, buttocks, and genitals. Pertinent findings include: - well demarcated erythematous scaly plaques with white micaceous scale involving anterior legs and hands Neck - Posterior Indurated erythematous plaques Left Medial Thigh Pedunculated skin color nodule ASSESSMENT & PLAN: Psoriasis vulgaris Medical complexity: chronic illness with exacerbation and/or progression - BSA: 3-4% - Overall, flared - Discussed psoriasis is a chronic problem that may come and go - Discussed psoriasis systemic inflammation increases risks of heart disease, HTN, diabetes mellitus; encouraged routine preventative care with PCP as well as healthy life style. - Discussed that infections, stress, damage to the skin and alcohol may trigger flares of psoriasis Start: - clobetasol (TEMOVATE) 0.05 % ointment; Apply to affected area twice daily Tuesday to Tuesday as needed. Not for face, armpits or groin. Discussed extended use of topical steroids can cause thinning of skin, atrophy, telangiectasias, striae or pigmentary changes. - calcipotriene (DOVONEX) 0.005 % oint; Apply to any affected areas two times daily on sat and sun. Proper use of topical steroid discussed as well as possible side effects of over use including skin thinning, atrophy, telangiectasias, and striae. 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 Based on history, clinical presentation, and/or distribution, favor scleredema. Differential diagnoses include other sclerosing disorders. Potential etiology, course, prognosis, and treatment option(s) reviewed. Risks and benefits of trial of topical therapy versus skin biopsy discussed. Patient agreed to biopsy today. Start: - clobetasol (TEMOVATE) 0.05 % ointment; Apply to affected area twice daily Tuesday to Tuesday as needed. Not for face, armpits or groin. Discussed extended use of topical steroids can cause thinning of skin, atrophy, telangiectasias, striae or pigmentary changes. - calcipotriene (DOVONEX) 0.005 % oint; Apply to any affected areas two times daily on sat and sun. PROCEDURE NOTE: Punch Biopsy to establish and confirm diagnosis. Photo taken: Yes Risks, benefits, alternatives and personnel required for punch biopsy reviewed with patient including scarring and infection. Pt and physician agree as to site(s) to be biopsied. Pt verbalizes understanding and wishes to proceed. Rula Aquino MD Site(s) anesthetized with buffered 1% Lidocaine with Epinephrine. 4 mm punch biopsy performed. Hemostasis was obtained with 2 interrupted sutures. Dressing applied. Written and verbal wound care instructions provided to patient. A) Neck - Posterior; r/o R/O scleredema vs scleromyxedema Jai Green tolerated the procedure well and without complication. Follow-up for suture removal in 12 days. #Skin neoplasm Differential diagnosis includes includes acrochordon vs condyloma. Recommended skin biopsy of suspicious lesion(s) to establish and confirm diagnosis. Risks (including infection and scarring), benefits, alternatives and personnel discussed with patient who consents to proceed. PROCEDURE NOTE Diagnosis and biopsy location: SKIN NEOPLASM Left Medial Thigh SKIN / NAIL BIOPSY Type of biopsy: tangential Informed consent: discussed and consent obtained Timeout: patient name, date of , surgical site, and procedure verified Procedure prep: Patient was prepped and draped in usual sterile fashion Prep type: Isopropyl alcohol Anesthesia: the lesion was anesthetized in a standard fashion Anesthetic: 1% lidocaine w/ epinephrine 1-100,000 local infiltration Instrument used: DermaBlade Hemostasis achieved with: suture Outcome: patient tolerated procedure well Post-procedure details: sterile dressing applied and wound care instructions given Dressing type: bandage and petrolatum Specimen B - Surgical Pathology R/O neurofibroma vs skin tag UNIVERSAL PROTOCOL / SAFETY CHECKLIST Procedure to be Performed: shave biopsy Sign In: A Moment of CARE was completed. Personnel directly involved with the procedure wore the appropriate PPE (Personal Protective Equipment). Patient/Surrogate Stated/Verified: PATIENT VERIFIED(optional for EMERGENT procedures): Patient name, Date of , Relevant allergies, and the intended procedure Time Out Communication: Intended patient and procedure match the source documents. Consent documented and matches the intended procedure. Sign Out: SIGN OUT (optional for EMERGENT procedures): All specimen containers correctly labeled. All instruments, equipment, possible retained foreign bodies accounted for. Post-procedure follow-up management communicated and Plan of Care Visit completed when applicable. Rula Aquino MD [facility] documentation for this note was completed by MEG Jones acting as scribe for Rula Aquino MD. February 28, 2025 9:53 AM. The HPI, PMH, and ROS that were documented by my personal assistant, who was scribing during the encounter, were confirmed by me and I agree with the content of these sections. I have made any required additions or deletions to the HPI/PFSH/ROS as needed. The physical exam and any procedures were performed by me, unless otherwise noted. Rula Aquino MD documented in this encounter [facility] 02-22-2025 Note HNO ID: [id number] Author: RYLAN MILLER DO Service: ? Author Type: Physician Type: Progress Notes Filed: 03/06/2025 17:45 Note Text: [facility] [place] Miller DO [address] [place] [address] Date of Evaluation: 02/22/2025 Patient Name: Jai Green : 1970 Chief Complaint: Patient presents with: Follow Up: Express care on 02/18/25. Swelling Establish Care: Recently had blood work at [facility] New Patient Swelling: Under chin. States swelling goes down with antibiotic Hypertension Diabetes: Recently diagnosed 2 months ago. Was on Ozempic. Last took 2 weeks ago. Was on 0.25mg discuss tylenol and ibuprofen leg swelling Sleep Apnea: Wants testing Subjective Mr. Green is a 54 year old male who presents with the following complaint(s): The history is provided by the patient. No forestry contractor was used. Hypertension This is a chronic problem. The current episode started more than 1 year ago. The problem is uncontrolled. Associated symptoms include shortness of breath. Pertinent negatives include no chest pain, headaches or palpitations. Diabetes He presents for his follow-up diabetic visit. He has type 2 diabetes mellitus. Hypoglycemia symptoms include dizziness. Pertinent negatives for hypoglycemia include no headaches or nervousness/anxiousness. Pertinent negatives for diabetes include no chest pain, no fatigue and no weakness. Risk factors for coronary artery disease include hypertension, male sex, obesity, diabetes mellitus and sedentary lifestyle. Current diabetic treatment includes oral agent (monotherapy). Shortness of Breath This is a recurrent problem. The problem occurs intermittently. Pertinent negatives include no chest pain, headaches or leg swelling. Review of Systems Constitutional: Negative for fatigue and unexpected weight change. HENT: Negative for nosebleeds. Eyes: Negative for redness and visual disturbance. Respiratory: Positive for apnea (snoring and has been told he stops breathing) and shortness of breath. Negative for cough. Cardiovascular: Negative for chest pain, palpitations and leg swelling. Genitourinary: Negative for hematuria. Neurological: Positive for dizziness. Negative for weakness, light-headedness, numbness and headaches. Hematological: Does not bruise/bleed easily. Psychiatric/Behavioral: The patient is not nervous/anxious. 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 FAMILY HISTORY Problem Relation Age of Onset Hypertension Mother Diabetes Mother Stroke Mother No Known Problems Father No Known Problems Sister No Known Problems Sister No Known Problems Brother Hypertension Maternal Grandmother Diabetes Maternal Grandmother No Known Problems Maternal Grandfather No Known Problems Paternal Grandmother No Known Problems Paternal Grandfather Social History Tobacco Use Smoking status: Former Types: Cigarettes Smokeless tobacco: Never Vaping Use Vaping status: Never Used Substance Use Topics 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 losartan-hydroCHLOROthiazide (HYZAAR) 100-25 mg per tablet Take 1 tablet by mouth once daily. meclizine (ANTIVERT) 25 mg tab TAKE 1 TABLET BY MOUTH FOUR TIMES DAILY NEEDED for dizziness metFORMIN (GLUCOPHAGE) 500 mg tablet Take 1 tablet by mouth every 12 hours. semaglutide (OZEMPIC) 0.25 mg or 0.5 mg (2 mg/3 mL) pen Inject 0.25 mg subcutaneously one time a week. metoprolol succinate ER (TOPROL XL) 25 mg 24 hr tablet Take 1 tablet by mouth once daily. Blood-Glucose Meter Use to test blood sugar 3 times daily. Lancets Use to test blood sugar 3 times daily. blood sugar diagnostic (BLOOD GLUCOSE TEST) test strip Use to test blood sugar 3 times daily. No current facility-administered medications for this visit. I have confirmed and edited as necessary the past medical, family and social histories, HPI, and ROS obtained by others. Objective BP 140/100 Pulse 75 Temp 98.7 Ht 6' 0 (1.83m) Wt 318 lb (144.2kg) SpO2 94% BMI 43.12 kg/(m2). Physical Exam Vitals and nursing note reviewed. Constitutional: General: He is not in acute distress. Appearance: Normal appearance. He is well-developed. He is morbidly obese. He is not ill-appearing. HENT: Head: Normocephalic. Nose: Nose normal. Mouth/Throat: Pharynx: Uvula midline. Eyes: General: Lids are normal. Vision grossly intact. Gaze aligned appropriately. Extraocular Movements: Extraocular movements int (more content not included)... [facility] 02-22-2025 History of Presen t illness Narrative Images from the original note were not included. [facility] Medicine [facility] [address] [place] [address] Date of Evaluation: 02/22/2025 Patient Name: Jai Green : 1970 Chief Complaint: Patient presents with: Follow Up: Express care on 02/18/25. Swelling Establish Care: Recently had blood work at [facility] New Patient Swelling: Under chin. States swelling goes down with antibiotic Hypertension Diabetes: Recently diagnosed 2 months ago. Was on Ozempic. Last took 2 weeks ago. Was on 0.25mg discuss tylenol and ibuprofen leg swelling Sleep Apnea: Wants testing Subjective Mr. Green is a 54 year old male who presents with the following complaint(s): The history is provided by the patient. No forestry contractor was used. Hypertension This is a chronic problem. The current episode started more than 1 year ago. The problem is uncontrolled. Associated symptoms include shortness of breath. Pertinent negatives include no chest pain, headaches or palpitations. Diabetes He presents for his follow-up diabetic visit. He has type 2 diabetes mellitus. Hypoglycemia symptoms include dizziness. Pertinent negatives for hypoglycemia include no headaches or nervousness/anxiousness. Pertinent negatives for diabetes include no chest pain, no fatigue and no weakness. Risk factors for coronary artery disease include hypertension, male sex, obesity, diabetes mellitus and sedentary lifestyle. Current diabetic treatment includes oral agent (monotherapy). Shortness of Breath This is a recurrent problem. The problem occurs intermittently. Pertinent negatives include no chest pain, headaches or leg swelling. Review of Systems Constitutional: Negative for fatigue and unexpected weight change. HENT: Negative for nosebleeds. Eyes: Negative for redness and visual disturbance. Respiratory: Positive for apnea (snoring and has been told he stops breathing) and shortness of breath. Negative for cough. Cardiovascular: Negative for chest pain, palpitations and leg swelling. Genitourinary: Negative for hematuria. Neurological: Positive for dizziness. Negative for weakness, light-headedness, numbness and headaches. Hematological: Does not bruise/bleed easily. Psychiatric/Behavioral: The patient is not nervous/anxious. 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 FAMILY HISTORY Problem Relation Age of Onset Hypertension Mother Diabetes Mother Stroke Mother No Known Problems Father No Known Problems Sister No Known Problems Sister No Known Problems Brother Hypertension Maternal Grandmother Diabetes Maternal Grandmother No Known Problems Maternal Grandfather No Known Problems Paternal Grandmother No Known Problems Paternal Grandfather Social History Tobacco Use Smoking status: Former Types: Cigarettes Smokeless tobacco: Never Vaping Use Vaping status: Never Used Substance Use Topics 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 losartan-hydroCHLOROthiazide (HYZAAR) 100-25 mg per tablet Take 1 tablet by mouth once daily. meclizine (ANTIVERT) 25 mg tab TAKE 1 TABLET BY MOUTH FOUR TIMES DAILY NEEDED for dizziness metFORMIN (GLUCOPHAGE) 500 mg tablet Take 1 tablet by mouth every 12 hours. semaglutide (OZEMPIC) 0.25 mg or 0.5 mg (2 mg/3 mL) pen Inject 0.25 mg subcutaneously one time a week. metoprolol succinate ER (TOPROL XL) 25 mg 24 hr tablet Take 1 tablet by mouth once daily. Blood-Glucose Meter Use to test blood sugar 3 times daily. Lancets Use to test blood sugar 3 times daily. blood sugar diagnostic (BLOOD GLUCOSE TEST) test strip Use to test blood sugar 3 times daily. No current facility-administered medications for this visit. I have confirmed and edited as necessary the past medical, family and social histories, HPI, and ROS obtained by others. Objective BP 140/100 Pulse 75 Temp 98.7 Ht 6' 0 (1.83m) Wt 318 lb (144.2kg) SpO2 94% BMI 43.12 kg/(m^2). Physical Exam Vitals and nursing note reviewed. Constitutional: General: He is not in acute distress. Appearance: Normal appearance. He is well-developed. He is morbidly obese. He is not ill-appearing. HENT: Head: Normocephalic. Nose: Nose normal. Mouth/Throat: Pharynx: Uvula midline. Eyes: General: Lids are normal. Vision grossly intact. Gaze aligned appropriately. Extraocular Movements: Extraocular movements intact. Conjunctiva/sclera: Conjunctivae normal. Pupils: Pupils are equal, round, and reactive to light. Neck: Thyroid: No thyroid mass, thyromegaly or thyroid tenderness. Trachea: Trachea and phonation normal. Comments: Thickened skin to neck/back Soft tissue mass Cardiovascular: Rate and Rhythm: Normal rate and regular rhythm. Pulses: Normal pulses. Heart sounds: Normal heart sounds. Pulmonary: Effort: Pulmonary effort is normal. Breath sounds: Normal breath sounds. Abdominal: General: There is distension. Hernia: A hernia is present. Hernia is present in the umbilical area. Musculoskeletal: General: Normal range of motion. Right shoulder: Normal. Left shoulder: Normal. Cervical back: Normal, full passive range of motion without pain and neck supple. No spinous process tenderness. Thoracic back: Normal. Lumbar back: Normal. Right knee: Normal. Left knee: Normal. Right lower le+ Edema present. Left lower le+ Edema present. Legs: Feet: Right foot: Toenail Condition: Right toenails are abnormally thick and long. Fungal disease present. Left foot: Toenail Condition: Left toenails are abnormally thick and long. Fungal disease present. Skin: General: Skin is warm and dry. Findings: Rash present. Neurological: General: No focal deficit present. Mental Status: He is alert and oriented to person, place, and time. Mental status is at baseline. Sensory: Sensation is intact. Motor: Motor function is intact. Psychiatric: Attention and Perception: Attention and perception normal. Mood and Affect: Mood normal. Speech: Speech normal. Behavior: Behavior normal. Thought Content: Thought content normal. Judgment: Judgment normal. Data Reviewed: No new labs ASSESSMENT/PLAN: 1. Primary hypertension - ICD9: 401.9, ICD10: I10 (primary diagnosis) - Uncontrolled - Start Metoprolol - Discontinue Amlodipine due to leg swelling. - Advised to start checking BP once daily at home. - Repeat BP in 3 weeks. - METOPROLOL SUCCINATE ER 25 MG TABLET,EXTENDED RELEASE 24 HR 2. Type 2 diabetes mellitus without complication, without long-term current use of insulin (HCC) - ICD9: 250.00, ICD10: E11.9 - New diagnosis - Barriers to control: diet adherence - Start Ozempic. - Blood glucose monitoring on a three times daily schedule - Counseled on healthy diet and regular exercise - Discussed need for and benefit of weight loss. BMI 43.13 kg/(m^2) - Follow up in 3 weeks, sooner should any other issues arise. - HEMOGLOBIN A1C - SEMAGLUTIDE 0.25 MG OR 0.5 MG (2 MG/3 ML) SUBCUTANEOUS PEN INJECTOR 3. Observed sleep apnea - ICD9: 780.57, ICD10: G47.30 - Obesity - Snoring - Obtain Sleep Study - SLEEP STUDY ORDER NON [facility] 4. Umbilical hernia without obstruction or gangrene - ICD9: 553.1, ICD10: K42.9 - Can refer to general surgery in the future if needed 5. Former smoker - ICD9: V15.82, ICD10: Z87.891 6. Psoriasis - ICD9: 696.1, ICD10: L40.9 - Refer to Dermatology. - CONSULT TO DERMATOLOGY 7. Bilateral leg edema - ICD9: 782.3, ICD10: R60.0 - Discontinue Amlodipine due to leg swelling. 8. Submental mass - ICD9: 784.2, ICD10: R22.1 - Obtain CT neck. - CT NECK SOFT TISSUE WO IVCON 9. SOB (shortness of breath) - ICD9: 786.05, ICD10: R06.02 - Obtain ECHo. - ECHO - PERFLUTREN LIPID MICROSPHERES 1.1 MG/ML INJECTION IN NS 10 ML - SODIUM CHLORIDE 0.9 % (FLUSH) INJECTION SYRINGE 10. Screening for thyroid disorder - ICD9: V77.0, ICD10: Z13.29 - THYROID STIMULATING HORMONE 11. Screening for hyperlipidemia - ICD9: V77.91, ICD10: Z13.220 - COMPLETE BLOOD COUNT AND DIFFERENTIAL - COMPREHENSIVE METABOLIC PANEL - LIPID PANEL, FASTING - URINALYSIS, WITH MICROSCOPIC 12. Screening for prostate cancer - ICD9: V76.44, ICD10: Z12.5 - PSA/PROSTATE SPECIFIC ANTIGEN SCREENING 13. BMI 40.0-44.9, adult (HCC) - ICD9: V85.41, ICD10: Z68.41 Rylan Miller DO Return in about 3 weeks (around 03/15/2025) for medication follow up, Blood pressure check. Attestation: Scribe Attestation: The patient is seen and examined by Dr. Miller and the following reflects his/her service. Scribed by Faith Henderson February 22, 2025 8:36 SIVArovider Attestation: I, Rylan Miller DO personally performed the services described in this documentation. All medical record entries made by the scribe were at my direction and in my presence. I have reviewed the chart and discharge instructions (if applicable) and agree that the record reflects my personal performance and is accurate and complete. Electronically Signed: Rylan Miller DO, February 22, 2025 8:55 AM documented in this encounter [facility] 02-18-2025 Discharge summary [facility] 02-18-2025 Note HNO ID: [id number] Author: KINJAL GRIJALVA PA-C Service: ? Author Type: Physician Seasonal Warehouse Associate Type: Progress Notes Filed: 02/18/2025 15:24 Note Text: This note was created using QuicklyChatriter. Subjective Jai Green is a 54 year old male. Patient is a 54-year-old male who complains of worsening swelling to his bilateral lower legs and feet right greater than left that has been present for the past 2 to 3 days. Patient denies pain or injury to his bilateral lower legs. Patient denies chest pain, tightness or pressure reports no dyspnea or shortness of breath. Patient states that he has no history of congestive heart failure. Patient does have hypertension and is taking hydrochlorothiazide as directed. Patient presents with obvious 3+ pitting edema bilaterally right greater than left and was immediately advised that he requires evaluation in an emergency department laboratory testing and other management is available. Patient verbalizes agreement with this recommendation and states he will report immediately to the emergency department at [facility] after leaving this express care facility. Edema Review of Systems Objective BP 132/74 Pulse 88 Temp 37 ?C (98.6 ?F) Resp 18 Wt (!) 143.6 kg (316 lb 9.3 oz) SpO2 96% Physical Exam Assessment and Plan [facility] 02-18-2025 History of Present illness Narrative This note was created using Dashbell. Subjective Jai Green is a 54 year old male. Patient is a 54-year-old male who complains of worsening swelling to his bilateral lower legs and feet right greater than left that has been present for the past 2 to 3 days. Patient denies pain or injury to his bilateral lower legs. Patient denies chest pain, tightness or pressure reports no dyspnea or shortness of breath. Patient states that he has no history of congestive heart failure. Patient does have hypertension and is taking hydrochlorothiazide as directed. Patient presents with obvious 3+ pitting edema bilaterally right greater than left and was immediately advised that he requires evaluation in an emergency department laboratory testing and other management is available. Patient verbalizes agreement with this recommendation and states he will report immediately to the emergency department at [facility] after leaving this express care facility. Edema Review of Systems Objective BP 132/74 Pulse 88 Temp 37 C (98.6 F) Resp 18 Wt (!) 143.6 kg (316 lb 9.3 oz) SpO2 96% Physical Exam Assessment and Plan documented in this encounter [facility] 02-18-2025 Discharge summary Note Date/Time February 18, 2025 6:13pm [facility] Medical Records Department [address] [place] [address] Emergency Department Summary 02/18/25 MR#: [id number] Acct: [id number] Name: JAI GREEN Rep #:[id number] : 1970 54 From: Danish Li MD PCP: RODRIGUEZ HawthorneC Status:REG ER Location: ED HPI History of Present Illness Chief Complaint: Edema Detail of Chief Complaint: Patient presents with edema of his lower extremities for the past couple of Informant: patient Onset/Context/Timing Onset: Days Context: Sudden Onset Timing: Continuous Quality: Swelling legs it feet. Location: Lower extremities bilaterally Current Severity: Moderate Maximum Severity: Moderate Worsened by: Unknown Relieved by: Nothing Associated Symptoms Associated Symptoms: None Narrative Narrative: Patient is a 54-year-old male with type 2 diabetes and hypertension who is on amlodipine and losartan hydrochlorothiazide for his hypertension and metformin for his diabetes who presents with swelling over the past couple days of his lower extremities. He states he stands and walks a lot. He denies orthopnea orPND. He denies cardiac disease or anginal or anginal equivalent symptoms. He denies known kidney disease. He denies thyroid disease. He denies fatigue, cold intolerance, abdominal pain or constipation. He denies any change in the color, consistency or caliber of his stool. He has no known history of cancer. He denies fever, chills night sweats. He does endorse a 5 pound weight gain over the past 3 months. Prior similar symptoms: No Recent Illness/Hospitalization: No PFSH PFS Medical History Pancreatitis No previous significant medical history Home Medications ?Medication ?Instructions ?Recorded ?Last Taken ?Type amlodipine 10 mg tablet (Norvasc) 10 mg PO DAILY #30 t abs 11/25/24 Unknown Rx erythromycin 5 mg/gram (0.5 %) eye 1 applic RIGHT EYE BID 7 days #50 11/25/24 Unknown Rx ointment grams losartan 100 1 tab PO DAILY 12/21/24 Unkn own History mg-hydrochlorothiazide 25 mg tablet amoxicillin 875 mg-potassium 1 tab PO BID 7 days #14 t abs 12/22/24 Unknown Rx clavulanate 125 mg tablet meclizine 25 mg tablet 25 mg PO 4X/DAY PRN PRN Dizz iness 02/04/25 Unknown Rx #20 tabs metformin 500 mg tablet 500 mg PO BID 02/04/25 Unkno wn History Allergy/AdvReac Type Severity Reaction Status Date / Time No Known Allergies Allergy Verified 02/18/25 15:29 Social History household members: significant other Smoking Status: Former smoker substance use type: does not use ROS ROS ED Constitutional Constitutional ED: Denies chills, fever(s), subjective, sweats or weight loss Eyes Eyes: Denies blurry vision or change in vision ENT ENT ED: Denies rhinorrhea Cardiovascular Cardiovascular: Denies chest pain, orthopnea, palpitations or paroxysmal nocturnal dyspnea Respiratory/Chest Respiratory/Chest: Denies cough, dyspnea, dyspnea on exertion, orthopnea or paroxysmal nocturnal dyspnea Gastrointestinal Gastrointestinal: Denies abdominal pain, constipation, diarrhea, nausea or vomiting Musculoskeletal Musculoskeletal: Denies back pain Integumentary Denies rash Neurologic Neurologic: Denies weakness Psychiatric Psychiatric: Denies anxiety Endocrine Endocrinology: Denies cold intolerance Hematologic/Lymphatic Hematologic/Lymphatic: Reports systems reviewed and no addt'l complaints, exceptas documented EXAM Physical Exam Const Vital Signs: 02/18/25 15:29 02/18/25 15:32 02/18/25 15:59 Temperature 97.7 F L Temperature Source Oral Pulse Rate 98 Respiratory Rate 18 Respiratory Effort Normal Respiratory Pattern Normal Blood Pressure 197/107 H 156/99 H Blood Pressure Mean 137 118 Pulse Ox 95 Oxygen Delivery Method Room Air 02/18/25 17:29 Temperature Temperature Source Pulse Rate 70 Respiratory Rate 20 H Respiratory Effort Respiratory Pattern Blood Pressure 130/91 H Blood Pressure Mean 104 Pulse Ox Oxygen Delivery Method Room Air Positive well nourished and well developed Constitutional Narrative: BMI is 43.1. Initial blood pressure was elevated. Repeat is markedly improved with no intervention. General Appearance ED: well developed; Negative for pallor HEENT Reports moist mucous membranes HEENT Narrative: Head is atraumatic normocephalic. Ears normal. Nares patent. Eyes PERRL and EOMs intact bilaterally General Eye ED: Negative for pale conjunctiva or scleral icterus Neck no lymphadenopathy, supple and no JVD Chest Wall inspection of chest normal Resp normal respiratory effort and clear to auscultation bilaterally Cardio regular rate, regular rhythm, S1 normal heart sound, S2 normal heart sound and no murmurs GI normal to inspection, nondistended, normoactive bowel sounds, non-tender, non-distended and no masses; Negative for hepatosplenomegaly Palpation: soft Extremity Extremity Narrative: Patient has pitting edema of his legs and feet. Otherwise there is no abnormality noted. There is no venous stasis dermatitis noted. There is no skin lesions noted. General Extremety ED: Yes edema General Extremity: edema Neuro oriented x3 and CN's II-XII intact bilaterally Sensorium / Orientation: alert Psych mental status grossly normal Skin no rashes or lesions noted, no wounds and skin turgor normal General Skin Exam: Negative for jaundice or pallor MDM MDM MDM Narrative Medical decision making narrative: Patient with bilateral lymphedema he also has periorbital lymphedema. Differential diagnosis is renal disease, cardiac disease, thyroid disease we will obtain CBC, electrolyte panel, albumin and total protein as well as UA looking for proteinuria. He Lab Data Attestation: I reviewed the patient's lab results. Lab results narrative: CBC is essentially normal. Comprehensive metabolic panel is remarked for glucose of 164. He is diabetic. CO2 anion gap are normal. BUN to creatinine ratio is elevated. Urinalysis reveals increased specific gravity of 1.025 and minimal protein. This would not be the cause of his lymphedema. Labs: Laboratory Results - last 24 hr 02/18/25 02/18/25 16:11 17:05 WBC 8.4 RBC 5.37 Hgb 16.3 Hct 48.2 MCV 89.8 MCH 30.4 MCHC 33.8 RDW Std Deviation 45.6 H RDW Coeff of Jamaal 14.0 Plt Count 183 MPV 10.9 Immature Gran % (Auto) 0.500 Neut % (Auto) 61.6 Lymph % (Auto) 24.3 [place] % (Auto) 8.7 Eos % (Auto) 4.4 Baso % (Auto) 0.5 Absolute Neuts (auto) 5.1 Absolute Lymphs (auto) 2.03 Nucleated RBC % 0 Sodium 138 Potassium 4.0 Chloride 100 Carbon Dioxide 26.1 Anion Gap 12 BUN 18 Creatinine 0.75 Estim Creat Clear Calc 169.78 Est GFR (MDRD) Non-Af 108 BUN/Creatinine Ratio 23.5 H Glucose 164 H Calcium 9.8 Total Bilirubin 0.27 AST 25 ALT 27 Alkaline Phosphatase 78 Total Protein 7.1 Albumin 4.3 Globulin 2.9 Albumin/Globulin Ratio 1.5 TSH 3.180 Urine Color Yellow Urine Clarity Clear Urine pH 5.0 Ur Specific [place] 1.025 Urine Protein 30 H Urine Glucose (UA) Normal Urine Ketones Negative Urine Occult Blood Negative Urine Nitrite Negative Urine Bilirubin Negative Urine Urobilinogen Normal Ur Leukocyte Esterase 25 H Treatment and Re-Evaluation :: Patient was informed of his results. He was asked to follow-up with his doctor for further outpatient testing since there is no emergent condition at this time. Discharge Plan Triage Chief Complaint: Edema ED Provider: Danish Li Dx/Rx/DC Orders Clinical Impression: Lymphedema of both lower extremities, Type 2 diabetes mellitus with hyperglycemia, Protein in urine Instructions: ED Peripheral Edema, Bilateral Prescriptions: No Action amlodipine [Norvasc] 10 mg tablet 10 mg PO DAILY Qty: 30 3RF erythromycin 5 mg/gram (0.5 %) ointment 1 applic RIGHT EYE BID 7 Days Qty: 50 0RF losartan-hydrochlorothiazide 100-25 mg tablet 1 tab PO DAILY amoxicillin-pot clavulanate 875-125 mg tablet 1 tab PO BID 7 Days Qty: 14 0RF metformin 500 mg tablet 500 mg PO BID meclizine 25 mg tablet 25 mg PO 4X/DAY PRN PRN (Reason: Dizziness) Qty: 20 0RF Primary Care Provider: Kinjal Triana Referrals: Kinjal Triana, REHAB OFFICE COORDINATOR-C [Primary Care Provider] - 1 Week Print Language: Setswana Disposition Disposition: Home, Self Care What to do if you have Problems For any increased pain, shortness of breath, bleeding, nausea or vomiting, chestpain, or any unexpected problems, contact your Primary Care Provider. Call [facility] ([phone]) or report to the closest Emergency Room. Call 911 if necessary. 02/18/251812 <Electronically signed by Danish Li MD> Cosigner Signature (if applicable): CC: TREE Triana ~ Signed [facility] Work Phone: [phone] 259-984703-11-2025 Instructions* Patient Instructions* Adele Mcclure APRN.LAUNDRY OR DRY CLEANERS COUNTER CLERK - 02/05/2025 5:21 PM EDT COUGH: Your doctor wants you to have this information about coughing. The body has a cough reflex which helps expel mucous secretions and irritants from the lung and airway passages. Cough spasms are periods of continuous coughing lasting several minutes. Most coughs is caused by virus infections which may last for up to 2-3 weeks. Coughing helps to protect the lung from pneumonia. A persistent cough las ting longer than 4-6 weeks requires medical evaluation by your primary care doctor. Treatment of cough includes measures to loosen the cough and thin the mucous. Warm liquids, cough drops, and nonprescription cough medicine may help reduce dry hacking cough. Use a humidifier if necessary as dry air can make coughs worse. Ultrasonic humidifiers are especially useful as they kill molds and many bacteria. Some cough medicines have antihistamines, decongestants, or alcohol in them; there is no proof that any of these help control cough. Prescription cough medicine or those with dextromethorphan (DM) should be reserved for dry coughs that prevent sleep or cause spasms or chest pain. Avoid any exposure to cigarette smoke as this will worsen the cough or make it last much longer. Call your doctor right away if you or your child have increased breathing difficulty, a high fever, a cough that lasts longer than 3 weeks, or other serious complaints. documented in this encounterC[facility] History of Present illness Narrative* Sandra Villalobos Tech - 02/05/2025 4:40 PM EDT Radiology Service Progress Note PATIENT NAME: Jai Green DATE OF SERVICE: February 05, 2025 TIME: 4:36 PM PATIENT IDENTITY VERIFICATION COMPLETED USING TWO (2) IDENTIFIERS: Name and Date of confirmedby patient verbally. FALL SCREENING: Has the patient had 2 falls in the last year or 1 fall with injury or currently using an Ambulatory Assistive Device (Walker, Cane, Wheelchair, Crutches, etc.)? No PATIENT GENDER DATA: Assigned male at PATIENT RELEVANT IMPLANT DATA REVIEWED: Not Applicable PATIENT PRESENTS WITH AN IMPLANTABLE OR ATTACHED SKIVER HEEL TAP: No RADIOLOGY DEPARTMENT: General X-ray: Exam(s) Completed: Chest X-Ray PERIPHERAL IV DATA: Not applicable SIGNED BY: Ifrah Rees February 05, 2025 4:36 PM documented in this encounterCleveland [facility]03-11-2025 NoteHNO ID: [id number] Author: SANDRA VILLALOBOS Tech Service: ? Author Type: Technologist Type: Progress Notes Filed: 02/05/2025 16:43 Note Text: Radiology Service Progress Note PATIENT NAME: Jai Green DATE OF SERVICE: February 05, 2025 TIME: 4:36 PM PATIENT IDENTITY VERIFICATION COMPLETED USING TWO (2) IDENTIFIERS: Name and Date of confirmed by patient verbally. FALL SCREENING: Has the patient had 2 falls in the last year or 1 fall with injury or currently using an Ambulatory Assistive Device (Walker, Cane, Wheelchair, Crutches, etc.)? No PATIENT GENDER DATA: Assigned male at PATIENT RELEVANT IMPLANT DATA REVIEWED: Not Applicable PATIENT PRESENTS WITH AN IMPLANTABLE OR ATTACHED SKIVER HEEL TAP: No RADIOLOGY DEPARTMENT: General X-ray: Exam(s) Completed: Chest X-Ray PERIPHERAL IV DATA: Not applicable SIGNED BY: Ifrah Rees February 05, 2025 4:36 [facility]03-11-2025 NoteHNO ID: [id number] Author: ADELE MCCLURE APRN.LAUNDRY OR DRY CLEANERS COUNTER CLERK Service: ? Author Type: Nurse Practitioner Type: Progress Notes Filed: 02/05/2025 18:06 Note Text: CC: Patient presents with: Cough: x 2 weeks, sore throat x 1 day HPI Jai Green is a 54 year old male who presents with a productive cough with green/dubose phlegm x 2 weeks and a sore throat and lump at neck x 1 day. The patient denies fevers, chills, nasal drainage, SOB, chest pain or palpitations. He reports getting this lump every year around the same time. He typically is prescribed antibiotics. He is not established with a primary care and has gone to the [facility] for care and blood pressure management. Denies history of asthma, COPD, or thyroid problems. He recently obtained health insurance and is requesting a referral to establish care with a PCP. 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 He is using mariajuana occasionally. His main concern today is his sore throat and lump. Review of Systems Constitutional: Negative for activity change, appetite change, chills, fatigue and fever. HENT: Positive for sore throat. Negative for congestion, ear pain, postnasal drip, rhinorrhea, sinus pain, sneezing and trouble swallowing. Respiratory: Positive for cough. Negative for chest tightness, shortness of breath and wheezing. Cardiovascular: Negative for chest pain and palpitations. Gastrointestinal: Negative for abdominal pain, diarrhea, nausea and vomiting. Musculoskeletal: Negative for arthralgias, myalgias and neck pain. Skin: Negative for color change and rash. Allergic/Immunologic: Negative for environmental allergies, food allergies and immunocompromised state. No past medical history on file. No past surgical history on file. ALLERGIES Patient has no known allergies. MEDICATIONS amLODIPine (NORVASC) 10 mg tablet Take 1 tablet by mouth once daily. losartan-hydroCHLOROthiazide (HYZAAR) 100-25 mg per tablet Take 1 tablet by mouth once daily. meclizine (ANTIVERT) 25 mg tab TAKE 1 TABLET BY MOUTH FOUR TIMES DAILY NEEDED for dizziness metFORMIN (GLUCOPHAGE) 500 mg tablet Take 1 tablet by mouth every 12 hours. No family history on file. BP 142/82 Pulse 78 Temp 36.6 ?C (97.8 ?F) Resp 20 Wt (!) 142.1 kg (313 lb 4.4 oz) SpO2 97% Physical Exam HENT: Head: Jaw: No trismus or tenderness. Right Ear: Tympanic membrane and ear canal normal. No mastoid tenderness. Tympanic membrane is not erythematous. Left Ear: Tympanic membrane and ear canal normal. No mastoid tenderness. Tympanic membrane is not erythematous. Nose: No congestion or rhinorrhea. Right Sinus: No maxillary sinus tenderness or frontal sinus tenderness. Left Sinus: No maxillary sinus tenderness or frontal sinus tenderness. Mouth/Throat: Lips: [place]. Mouth: Mucous membranes are moist. No injury, lacerations or oral lesions. Dentition: Normal dentition. No dental tenderness, gingival swelling or dental abscesses. Tongue: No lesions. Palate: No mass and lesions. Pharynx: Oropharynx is clear. Uvula midline. No posterior oropharyngeal erythema, uvula swelling or postnasal drip. Neck: Thyroid: No thyroid mass. Trachea: Trachea normal. Comments: Palpable submental adenopathy Musculoskeletal: Cervical back: Normal range of motion. No erythema, rigidity or torticollis. Lymphadenopathy: Cervical: Cervical adenopathy present. Neurological: Mental Status: He is alert. Psychiatric: Behavior: Behavior is cooperative. ASSESSMENT/PLAN: 1.Submental adenopathy - ICD9: 785.6, ICD10: R59.0 Lump noticed yesterday with sore throat. No difficulty swallowing. No erythema. Afebrile. Dentition free of pain, decay or swelling. Patient states I have gotten this every year for over 5 years. I get antibiotics then it goes away. Denies hx of environmental allergies. - Establish with PCP for follow up and establish care. - Appointment made with Nancy Doe in [place] for 03/14/2025 - Start taking DOXYCYLINE 100MG bid x 7 days - The patient should follow up in 3-5 days if symptoms persist or worsen - Work excuse provided. 2. Sore throat - ICD9: 462, ICD10: J02.9 (primary diagnosis) Started yesterday. No difficulty swallowing. No tonsillar swelling or exudate. Throat clear. - Suspect viral - Rapid Strep negative in the office today - Discussed supportive care treatment with fluids, rest and analgesia. - The patient may also use warm salt water gargles, throat lozenges and/or OTC throat spray as needed. - STREP A MOLECULAR (POC) negative and discussed with patient. 3. Acute cough - ICD9: 786.2, ICD10: R05.1 Productive cough x 2 weeks. Phlegm green/dubose. Afebrile, Lungs CTA, denies SOB. Former smoker of 2 months 1pk/day. - XR CHEST 2V FRONTAL/LAT Results discussed with patient in office. IMPRESSION: No acute radiographic abnormality. Prescription ins (more content not included)...[facility] 02-05-2025 History of Present illness Narrative* Adele Mcclure APRN.LAUNDRY OR DRY CLEANERS COUNTER CLERK - 02/05/2025 4:32 PM EDT Images from the original note were not included. CC: Patient presents with: Cough: x 2 weeks, sore throat x 1 day HPI Jai Green is a 54 year old male who presents with a productive cough with green/dubose phlegm x 2 weeks and a sore throat and lump at neck x 1 day. The patient denies fevers, chills, nasal drainage, SOB, chest pain or palpitations. He reports getting this lump every year around the same time. He typically is prescribed antibiotics. He is not established with a primary care and has gone to the [facility] for care and blood pressure management. Denies history of asthma, COPD, or thyroid problems. He recently obtained health insurance and is requesting a referral to establish care with a PCP. 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 He is using mariajuana occasionally. His main concern today is his sore throat and lump. Review of Systems Constitutional: Negative for activity change, appetite change, chills, fatigue and fever. HENT: Positive for sore throat. Negative for congestion, ear pain, postnasal drip, rhinorrhea, sinus pain, sneezing and trouble swallowing. Respiratory: Positive for cough. Negative for chest tightness, shortness of breath and wheezing. Cardiovascular: Negative for chest pain and palpitations. Gastrointestinal: Negative for abdominal pain, diarrhea, nausea and vomiting. Musculoskeletal: Negative for arthralgias, myalgias and neck pain. Skin: Negative for color change and rash. Allergic/Immunologic: Negative for environmental allergies, food allergies and immunocompromised state. No past medical history on file. No past surgical history on file. ALLERGIES Patient has no known allergies. MEDICATIONS amLODIPine (NORVASC) 10 mg tablet Take 1 tablet by mouth once daily. losartan-hydroCHLOROthiazide (HYZAAR) 100-25 mg per tablet Take 1 tablet by mouth once daily. meclizine (ANTIVERT) 25 mg tab TAKE 1 TABLET BY MOUTH FOUR TIMES DAILY NEEDED for dizziness metFORMIN (GLUCOPHAGE) 500 mg tablet Take 1 tablet by mouth every 12 hours. No family history on file. BP 142/82 Pulse 78 Temp 36.6 C (97.8 F) Resp 20 Wt (!) 142.1 kg (313 lb 4.4 oz) SpO2 97% Physical Exam HENT: Head: Jaw: No trismus or tenderness. Right Ear: Tympanic membrane and ear canal normal. No mastoid tenderness. Tympanic membrane is not erythematous. Left Ear: Tympanic membrane and ear canal normal. No mastoid tenderness. Tympanic membrane is not erythematous. Nose: No congestion or rhinorrhea. Right Sinus: No maxillary sinus tenderness or frontal sinus tenderness. Left Sinus: No maxillary sinus tenderness or frontal sinus tenderness. Mouth/Throat: Lips: [place]. Mouth: Mucous membranes are moist. No injury, lacerations or oral lesions. Dentition: Normal dentition. No dental tenderness, gingival swelling or dental abscesses. Tongue: No lesions. Palate: No mass and lesions. Pharynx: Oropharynx is clear. Uvula midline. No posterior oropharyngeal erythema, uvula swelling orpostnasal drip. Neck: Thyroid: No thyroid mass. Trachea: Trachea normal. Comments: Palpable submental adenopathy Musculoskeletal: Cervical back: Normal range of motion. No erythema, rigidity or torticollis. Lymphadenopathy: Cervical: Cervical adenopathy present. Neurological: Mental Status: He is alert. Psychiatric: Behavior: Behavior is cooperative. ASSESSMENT/PLAN: 1.Submental adenopathy - ICD9: 785.6, ICD10: R59.0 Lump noticed yesterday with sore throat. No difficulty swallowing. No erythema. Afebrile. Dentitionfree of pain, decay or swelling. Patient states I have gotten this every year for over 5 years. I get antibiotics then it goes away. Denies hx of environmental allergies. - Establish with PCP for follow up and establish care. - Appointment made with Nancy Doe in [place] for 03/14/2025 - Start taking DOXYCYLINE 100MG bid x 7 days - The patient should follow up in 3-5 days if symptoms persist or worsen - Work excuse provided. 2. Sore throat - ICD9: 462, ICD10: J02.9 (primary diagnosis) Started yesterday. No difficulty swallowing. No tonsillar swelling or exudate. Throat clear. - Suspect viral - Rapid Strep negative in the office today - Discussed supportive care treatment with fluids, rest and analgesia. - The patient may also use warm salt water gargles, throat lozenges and/or OTC throat spray as needed. - STREP A MOLECULAR (POC) negative and discussed with patient. 3. Acute cough - ICD9: 786.2, ICD10: R05.1 Productive cough x 2 weeks. Phlegm green/dubose. Afebrile, Lungs CTA, denies SOB. Former smoker of 2 months 1pk/day. - XR CHEST 2V FRONTAL/LAT Results discussed with patient in office. IMPRESSION: No acute radiographic abnormality. Prescription instructions reviewed with patient as applicable. Potential red flag symptoms discussed with the patient. Reviewed appropriate action plan to take if red flag symptoms occur. Patient agreeable to treatment plan. Fani Diaz TEACHING PROVIDER (Physician/PA/CRIMPING PRESS OPERATOR) NOTE OF PERSONAL INVOLVEMENT IN CARE: I have personally seen and examined the patient and performed the medical decision-making components. I have reviewed the Advanced Practice Registered Nurse (CRIMPING PRESS OPERATOR) Student's documentation and verified the findings in the note as written. Any additions or changes are noted in bold/italics. Signature: Adele Mcclure Date: 02/05/2025 Time: 6:05 PM documented in this encounterCleveland Clinic Euclid HospitalDischar summary Author Dr. Frank [facility] May 01, 2023 1:55pm Note Date/Time May 01, 2023 1:14p m [facility] Medical Records Department [address] [place] [address] Emergency Department Summary 05/01/23 MR#: [id number] Acct: [id number] Name: JAI GREEN Rep #:[id number] : 1970 52 From: Victor Manuel El PCP: Care Physician,No Primary Status :REG ER Location: ED HPI History of Present Illness Chief Complaint: Dental PFSH PFSH Medical History (Updated 05/01/23 @ 13:[address] Victor Manuel Frank, ) No previous significant medical history Pancreatitis Home Medications amoxicillin 875 mg-potassium clavulanate 125 mg tablet 1 tab PO BID 7 days #14 tabs 05/01/23 [Rx Last Taken Unknown] Allergy/AdvReac Type Severity Reaction Status Date / Time No Known Allergies Allergy Verified 05/01/23 12:44 Social History Smoking Status: Current every day smoker tobacco type: cigarettes EXAM Physical Exam Const Vital Signs: 05/01/23 12:44 Temperature 97.2 F L Temperature Source Temporal Pulse Rate 73 Respiratory Rate 18 Blood Pressure 200/107 H Blood Pressure Mean 138 Pulse Ox 93 Oxygen Delivery Method Room Air MDM MDM MDM Narrative Medical decision making narrative: HISTORY OF PRESENT ILLNESS: 52-year-old male here with left-sided dental pain. States this started several days ago. Has not seen a dentist. Denies any sore throat, difficulty swallowing, stridor, neck stiffness, swelling to the jaw REVIEW OF SYSTEMS: Pertinent positives: Dental pain Pertinent negatives: Stridor, drooling, swelling any of the jaw PHYSICAL EXAM: Nursing triage notes reviewed, Vital signs reviewed Constitutional: please see mdm HENT: MMM, no evidence of dental abscess, no submandibular edema, no tonsillar exudates or erythema, uvula midline, patient was controlling secretions, no drooling Eyes: Pupils equal round and reactive to light, Extraocular muscles intact Neck: No stridor, no JVD, full neck ROM Lungs: Clear to auscultation, No wheezing or rales. No increased work of breathing, no conversational dyspnea, no accessory muscle use, no nasal flaring. No respiratory distress noted Heart: Regular rate and rhythm, No murmurs, No rubs and No gallops, 2+ distal pulses (radial, femoral, posterior tibial) in all extremities MEDICAL DECISION MAKING: Chief Complaint: Dental pain External records reviewed:No recent ED visits [facility] Narrative: The patient was hemodynamically stable, afebrile, nontoxic-appearing. Exam not consistent with dental abscess I considered the following differential diagnosis: Dental abscess, ANUG, Ludewig's angina, RPA, IMPACT HAMMER OPERATOR, dental caries, gingivitis Exam most consistent with dental infection. No evidence of Moreno's angina, RPA, IMPACT HAMMER OPERATOR, ANUG or dental abscess. Patient was given strict return precautions, follow-up instructions, prescription for Augmentin and local dental resources Factors affecting care: Alcohol abuse, acute pancreatitis Social determinants of health: Current every day smoker History obtained from others: The patient's Shared decision making: I will have a discussion with the patient and or visitors regarding risk/benefits of further testing or admission. They will be made aware of of the risk/benefits inherent in this decision they will be given the opportunity to voice understanding. Consults: None Discharge Plan Triage Chief Complaint: Dental ED Provider: Victor Manuel Frank Dx/Rx/DC Orders Clinical Impression: Pain, dental Instructions: ED Dental Pain Prescriptions: New amoxicillin-pot clavulanate 875-125 mg tablet 1 tab PO BID 7 Days Qty: 14 0RF Stand Alone Forms: ED Work / School Excuse Primary Care Provider: Care Physician,No Primary Referrals: Bridgette Hamlin MD [Med Staff - Active Staff] - Activity Restrictions/Additional Instructions: Thank you for trusting us with your care today! Please take Tylenol (2 pills, 650 mg), ibuprofen (2 pills, 400 mg) every 6 hoursas needed for pain and fever control. Please take Augmentin as prescribed. Please finish entire course. Please return to the emergency department if your symptoms change or worsen. Specifically if develop swelling of your jaw, drooling, difficulty swallowing, if he cannot tolerate medicine by mouth due to nausea and vomiting. Please follow with your primary care physician for further outpatient evaluationand management. Disposition Disposition: Home, Self Care What to do if you have Problems For any increased pain, shortness of breath, bleeding, nausea or vomiting, chestpain, or any unexpected problems, contact your Primary Care Provider. Call [facility] ([phone]) or report to the closest Emergency Room. Call 911 if necessary. 05/01/23 1355 <Electronically signed by Victor Manuel Frank DO> Cosigner Signature (if applicable): CC: No Primary Care Physician ~ Signed [facility] Work Phone: Discharge summary Author Dr. Li [facility] May 02, 2023 2:55am Note Date/Time May 02, 2023 2:51a m [facility] Medical Records Department [address] [place] [address] Emergency Department Summary 05/02/23 MR#: [id number] Acct: [id number] Name: JAI GREEN Rep #:[id number] : 1970 52 From: Danish Li MD PCP: Care Physician,No Primary Status :REG ER Location: ED HPI History of Present Illness Chief Complaint: Dental Detail of Chief Complaint: Dental pain, gum swelling and facial swelling Informant: patient and spouse/S.O. Onset/Context/Timing Onset: Today Context: Sudden Onset Timing: Continuous Quality: Facial swelling and dental pain Location: Buccal side of tooth #18 and 19 Current Severity: Moderate Maximum Severity: Moderate Worsened by: Infection Relieved by: - (Nothing) Associated Symptoms Assocated Symptom - Dental: jaw swelling and face swelling; Negative for fever, cold sensitivity or hot sensitivity Narrative Narrative: Patient is a 52-year-old male who was seen earlier today for dental infection. He was placed on antibiotic and NSAID. He presents because of facial swelling and increased pain. He denies fever or chills. [place] history medic fever, heartmurmur, SBE or being immune suppressed. Patient does not have a dentist. He states he was given dental sheet. He denies drooling. He denies change in voice. Prior similar symptoms: Yes Recent Illness/Hospitalization: Yes [facility] Medical History No previous significant medical history Pancreatitis Home Medications amoxicillin 875 mg-potassium clavulanate 125 mg tablet 1 tab PO BID 7 days #14 tabs 05/01/23 [Rx Last Taken Unknown] oxycodone-acetaminophen 5 mg-325 mg tablet 1 tab PO Q6H PRN PRN Pain 3 days #12 TABLETS 05/02/23 [Rx Last Taken Unknown] Allergy/AdvReac Type Severity Reaction Status Date / Time No Known Allergies Allergy Verified 05/01/23 12:44 Social History (Updated 05/02/23 @ 02:[address] Danish Li MD) household members: significant other Smoking Status: Current every day smoker tobacco type: cigarettes substance use type: does not use ROS ROS ED Constitutional Constitutional ED: Denies chills, fever(s) or subjective Eyes Eyes: Denies blurry vision or change in vision ENT ENT ED: Reports other Details: Facial swelling, dental pain ; Denies ear pain, rhinorrhea or sore throat Cardiovascular Cardiovascular: Denies chest pain or palpitations Respiratory/Chest Respiratory/Chest: Denies dyspnea Gastrointestinal Gastrointestinal: Denies nausea or vomiting Integumentary Denies rash Neurologic Neurologic: Denies headache(s), paresthesias or weakness Allergic/Immunologic Allergic/Immunologic ED: Reports mouth swelling; Denies tongue swelling or urticaria EXAM Physical Exam Const Vital Signs: 05/02/23 02:32 Temperature 96.1 F L Temperature Source Temporal Pulse Rate 67 Respiratory Rate 20 H Blood Pressure 168/105 H Blood Pressure Mean 126 Pulse Ox 97 Oxygen Delivery Method Room Air Positive well nourished, well developed and obese General Appearance ED: well developed; Negative for NAD or pallor Nutritional Appearance: obese HEENT HEENT Narrative: Patient has swelling over the body of the mandible on the left. There is evidence of a periodontal abscess with fluctuance on the buccal surface of tooth#18 and 19. Patient has poor dentition with multiple caries. He also has evidence of gingivitis and periodontal disease. Uvula is midline. There is no deviation of the uvula. There is no deviation tongue with protrusion. There isno dysphonia. There is no drooling. There is no firmness to the floor of the mouth. The tongue is not elevated. Teeth and Gingiva: abnormal tooth and associated gingiva Throat: posterior oropharynx normal Eyes PERRL and EOMs intact bilaterally General Eye ED: Negative for pale conjunctiva or scleral icterus Neck no lymphadenopathy, supple and no JVD Neck Narrative: Trachea is midline. There is no inspiratory rider. Resp normal respiratory effort, no retractions and clear to auscultation bilaterally Cardio regular rate, regular rhythm, S1 normal heart sound, S2 normal heart sound and no murmurs Extremity normal to inspection and no joint enlargement Neuro oriented x3, CN's II-XII intact bilaterally and moves all extremities Sensorium / Orientation: alert Psych mental status grossly normal Skin no rashes or lesions noted General Skin Exam: Negative for pallor MDM MDM MDM Narrative Medical decision making narrative: PatientPatient has fluctuance consistent with periodontal abscess. Area expressed some purulent material. Since it is still was fluctuant 11 blade was usedto make a small incision with further drainage noted. There is no evidence at this point of facial cellulitis. Agree with antibiotics patient was discharged with. We will place on oral opiate analgesics as well. History & Record Review Discussion w/independent historian: Patient and Significant other Additional record(s) reviewed:: Prior ED visit Procedures Other Procedures Procedure(s): I&D of periodontal abscess using 11 blade. Discharge Plan Triage Chief Complaint: Dental ED Provider: Danish Li Dx/Rx/DC Orders Clinical Impression: Acute periodontal abscess, Dental caries extending into dentine, Dental caries extending into pulp, Acute gingivitis, Periodontal disease, Left facial swelling Instructions: Dental Abscess Prescriptions: New oxycodone-acetaminophen [oxycodone-acetaminophen] 5-325 mg tablet 1 tab PO Q6H PRN PRN (Reason: Pain) 3 Days Qty: 12 0RF No Action amoxicillin-pot clavulanate 875-125 mg tablet 1 tab PO BID 7 Days Qty: 14 0RF Primary Care Provider: Care Physician,No Primary Referrals: Care Physician,No Primary [Primary Care Provider] - Activity Restrictions/Additional Instructions: Contact dentist on the list you were given starting later this morning. If you have drooling, change in voice or difficulty breathing return to the emergency department immediately Take antibiotics until gone Take pain medicine as prescribed Disposition Disposition: Home, Self Care What to do if you have Problems For any increased pain, shortness of breath, bleeding, nausea or vomiting, chestpain, or any unexpected problems, contact your Primary Care Provider. Call [facility] ([phone]) or report to the closest Emergency Room. Call 911 if necessary. 05/02/23 0255 <Electronically signed by Danish Li MD> Cosigner Signature (if applicable): CC: No Primary Care Physician ~ Signed [facility] Work Phone: [employer] noteNo assessment information available [facility] Work Phone: evaluation note* Diagnosis Submental adenopathy- Primary Enlargement of lymph nodes Sore throat Acute pharyngitis Acute cough Acute cough [facility] Diagnosis Acute cough documented in this encounter [facility] note* Diagnosis Peripheral edema- Primary Edema documented in this encounter [facility] note* Diagnosis APPOINTMENT CANCELLED- Primary documented in this encounter [facility] note* Diagnosis Uncontrolled hypertension- Primary Unspecified essential hypertension Type 2 diabetes mellitus without complication, without long-term current use of insulin (HCC) SOB (shortness of breath) Shortness of breath Submental mass Swelling, mass, or lump in head and neck Umbilical hernia without obstruction or gangrene Umbilical hernia without mention of obstruction or gangrene Observed sleep apnea Unspecified sleep apnea Former smoker Personal history of tobacco use, presenting hazards to health BMI 40.0-44.9, adult (HCC) Body Mass Index 40.0-44.9, adult Psoriasis Other psoriasis Bilateral leg edema Edema Screening for thyroid disorder Screening for hyperlipidemia Screening for lipoid disorders Screening for prostate cancer Special screening for malignant neoplasm of prostate documented in this encounter [facility] note* Diagnosis Type 2 diabetes mellitus without complication, without long-term current use of insulin (HCC)- Primary Psoriasis Other psoriasis Primary hypertension Unspecified essential hypertension Bilateral leg edema Edema Varicose veins of both legs with edema Other specified hypothyroidism Mixed hyperlipidemia Rectal bleeding Hemorrhage of rectum and anus Straining during bowel movements Other symptoms involving digestive system Gingivitis Chronic gingivitis, plaque induced Skin tag Unspecified hypertrophic and atrophic condition of skin BMI 40.0-44.9, adult ([facility]) Body Mass Index 40.0-44.9, adult [facility] Diagnosis Submental mass Swelling, mass, or lump in head and neck [facility] Diagnosis Primary hypertension- Primary Unspecified essential hypertension Type 2 diabetes mellitus without complication, without long-term current use of insulin ([facility]) MARIMAR (obstructive sleep apnea) Obstructive sleep apnea (adult) (pediatric) Scleromyxedema Other specified hypertrophic and atrophic condition of skin Visit for suture removal Encounter for removal of sutures BMI 40.0-44.9, adult ([facility]) Body Mass Index 40.0-44.9, adult [facility] Diagnosis Rash and nonspecific skin eruption- Primary Rash and other nonspecific skin eruption Skin neoplasm Neoplasm of unspecified nature of bone, soft tissue, and skin Psoriasis vulgaris [L40.0] Other psoriasis [facility] Discharge instructions Additional Instructions You are positive for COVID-19. Please maintain hydration. You may return to work next week. Please return for any worsening symptoms.[facility] Work Phone: Hospital Discharge instructions Additional Instructions Thank you for trusting us with your care today! Please take Tylenol (2 pills, 650 mg), ibuprofen (2 pills, 400 mg) every 6 hours as needed for pain and fever control. Please take Augmentin as prescribed. Please finish entire course. Please return to the emergency department if your symptoms change or worsen. Specifically if develop swelling of your jaw, drooling, difficulty swallowing, if he cannot tolerate medicine by mouth due to nausea and vomiting. Please follow with your primary care physician for further outpatient evaluation and management.[facility] Work Phone: Hospital Discharge instructions Additional Instructions Contact dentist on the list you were given starting later this morning. If you have drooling, change in voice or difficulty breathing return to the emergency department immediately Take antibiotics until gone Take pain medicine as prescribedWPark[facility] Work Phone: Hospital Discharge instructions Additional Instructions I prescribed meclizine which you take as needed for vertigo. Follow-up with your primary care doctor.[facility] Work Phone: Reason for referral (narrative)No reason for referral information availableWParkview Health [facility] Work Phone: Chief Complaint and Reason for Visit Chief Complaint SOB/WEAKNESS Chief Complaint dental pain Chief Complaint dental pain dental Chief Complaint Admit Date eye problem October 27, 2024 5:35pm EYE November 25, 2024 8:41pm sore throat December 21, 2024 1 1:09pm general illness February 04, 2025 5:0 2pm Chief Complaint Admit Date eye problem October 27, 2024 5:35pm EYE November 25, 2024 8:41pm sore throat December 21, 2024 1 1:09pm general illness February 04, 2025 5:0 2pm BILATERAL LEG SWELLING February 18, 2025 3:29pm Family History Relationship Condition Age at Onset Recorded Date/T santiago Unknown Family History?- Unknown November 4:42am Family History?Diabetes Unknown 2019 4:42am Relationship Condition Age at Onset Recorded Date/T santiago Unknown Family History?- Unknown November 5:42am Family History?Diabetes Unknown 2019 5:42am Advance Directives Advance Directive Response Recorded Date/ Time Living Will No October 22, 2 022 4:52pm Power of Electrical Sign Servicer No October 22, 2022 4:52pm Advance Directive Response Recorded Date/ Time Living Will No May 01, 2023 1 2:56pm Power of Electrical Sign Servicer No May 01, 2023 12:56pm Advance Directive Response Recorded Date/ Time Living Will No May 02, 2023 2 :36am Power of Electrical Sign Servicer No May 02, 2023 2:36am Advance Directive Response Recorded Date/ Time Living Will No November 25, 2 024 9:49pm Power of Electrical Sign Servicer No November 25, 2024 9:49pm Living Will No October 27, 2 024 6:39pm Power of Electrical Sign Servicer No October 27, 2024 6:39pm Living Will No December 22 12:09am Power of Electrical Sign Servicer No December 22, 2024 12:09am Living Will No February 04, 2025 5:51pm Power of Electrical Sign Servicer No February 04 5:51pm Advance Directive Response Recorded Date/ Time Living Will No November 25 9:49pm Do you have a Healthcare Power of Electrical Sign Servicer? No November 25, 2024 9:49pm Living Will No February 18, 2025 3:59pm Do you have a Healthcare Power of Electrical Sign Servicer? No February 18, 2025 3:59pm Living Will No October 27 6:39pm Do you have a Healthcare Power of Electrical Sign Servicer? No October 27, 2024 6:39pm Living Will No December 22 12:09am Do you have a Healthcare Power of Electrical Sign Servicer? No December 22, 2024 12:09am Living Will No February 04, 2025 5:51pm Do you have a Healthcare Power of Electrical Sign Servicer? No February 04, 2025 5:51pm Summary Purpose Additional Source Comments Goals (unrecognized section and content) Goals may be documented in a n alternate sectionGoals may be documented in an alternate sectionGoals may be documented in an alternate sectionGoals may be documented in an alternate sectionGoals may be documented in an alternate section Care Teams (unrecognized sec tion and content) Team Status: Active Member Role Status Dates No Primary Care Physician Family Provider Active No Primary Care Physician Primary Care Provider Active Team Status: Inactive Member Role Status Dates No Primary Care Physician Primary Care Provider Active Dr. Victor Manuel Frank , Emergency Provider Active Team Status: Inactive Member Role Status Dates No Primary Care Physician Primary Care Provider Active Dr. Danish Li MD Emergency Provider Active Team Status: Active Member Role Status Dates Kinjal Kong PARRY, REHAB OFFICE COORDINATOR-C Primary Care Provider Active Team Status: Inactive Member Role Status Dates No Primary Care Physician Primary Care Provider Active Start: October 27, 2024 End: October 27, 2024 Dr. Rio Norris , Attending Provider Active Start : October 27, 2024 End: October 27, 2024 Dr. Rio Norris , Emergency Provider Active Start : October 27, 2024 End: October 27, 2024 Team Status: Inactive Member Role Status Dates No Primary Care Physician Primary Care Provider Active Start: November 25, 2024 End: November 25, 2024 Dr. Victor Manuel Frank , Attending Provider Active Start: November 25, 2024 End: November 25, 2024 Dr. Victor Manuel Frank DO Emergency Provider Active Start: November 25, 2024 End: November 25, 2024 Team Status: Inactive Member Role Status Dates Kinjal Currieder VSC, REHAB OFFICE COORDINATOR-C Primary Care Provider Active Start: December 21, 2024 End: December 22, 2024 Dr. Norbert Maharaj DO Attending Provider Active Start: December 21, 2024 End: December 22, 2024 Dr. Norbert Maharaj DO Emergency Provider Active Start: December 21, 2024 End: December 22, 2024 Team Status: Inactive Member Role Status Dates Kinjal Kong VSC, REHAB OFFICE COORDINATOR-C Primary Care Provider Active Start: February 04, 2025 End: February 04, 2025 Dr. Rio Norris DO Emergency Provider Active Start : February 04, 2025 End: February 04, 2025 Team Status: Inactive Member Role Status Dates Kinjal Kong VSC, REHAB OFFICE COORDINATOR-C Primary Care Provider Active Start: February 04, 2025 End: February 04, 2025 Dr. Rio Norris DO Attending Provider Active Start : February 04, 2025 End: February 04, 2025 Dr. Rio Norris DO Emergency Provider Active Start : February 04, 2025 End: February 04, 2025 Team Status: Inactive Member Role Status Dates Kinjla Currieder VSC, REHAB OFFICE COORDINATOR-C Primary Care Provider Active Start: February 18, 2025 End: February 18, 2025 Dr. Danish Li MD Emergency Provider Active Sta rt: February 18, 2025 End: February 18, 2025 Cable Splicer Relationship Specialty Start Date End Date Rylan Miller DO [address] [place] [address] PCP - General Family Medicine 02/22/25 Cable Splicer Relationship Specialty Start Date End Date Rylan Miller DO [address] [place] [address] PCP - General Family Medicine 02/22/25 Cable Splicer Relationship Specialty Start Date End Date Rylan Miller DO [address] [place], [place] [phone] PCP - General Family Medicine 02/22/25 Cable Splicer Relationship Specialty Start Date End Date Rylan Miller DO [address] [place] [phone] PCP - General Family Medicine 02/22/25 Cable Splicer Relationship Specialty Start Date End Date Rylan Miller DO [address] [place] [id number] PCP - General Family Medicine 02/22/25 Cable Splicer Relationship Specialty Start Date End Date Rylan Miller DO [address] [place] [id number] PCP - General Family Medicine 02/22/25 Cable Splicer Relationship Specialty Start Date End Date Rylan Miller DO [address] [place] [id number] PCP - General Family Medicine 02/22/25 Cable Splicer Relationship Specialty Start Date End Date yRlan Miller DO [address] [place] [id number] PCP - General Family Medicine 02/22/25 Cable Splicer Relationship Specialty Start Date End Date Rylan Miller DO [address] [place] [phone] PCP - General Family Medicine 02/22/25 Cable Splicer Relationship Specialty Start Date End Date Rylan Miller DO [address] [place] [id number] PCP - General Family Medicine 02/22/25 Cable Splicer Relationship Specialty Start Date End Date Rylan Miller DO [address] [place] [address] PCP - General Family Medicine 02/22/25 Source Comments (unrecognize d section and content) In the event this informatio n is protected by the Federal Confidentiality of Alcohol and Drug Abuse Patient Records regulations: The Federal rules restrict any use of the information to criminally investigate or prosecute any alcohol or drug abuse patient.[facility] the event this information is protected by the Federal Confidentiality of Alcohol and Drug Abuse Patient Records regulations: The Federal rules restrict any use of the information to criminally investigate or prosecute any alcohol or drug abuse patient.[facility] the event this information is protected by the Federal Confidentiality of Alcohol and Drug Abuse Patient Records regulations: The Federal rules restrict any use of the information to criminally investigate or prosecute any alcohol or drug abuse patient.[facility] Hospital[facility] the event this information is protected by the Federal Confidentiality of Alcohol and Drug Abuse Patient Records regulations: The Federal rules restrict any use of the information to criminally investigate or prosecute any alcohol or drug abuse patient.[facility] the event this information is protected by the Federal Confidentiality of Alcohol and Drug Abuse Patient Records regulations: The Federal rules restrict any use of the information to criminally investigate or prosecute any alcohol or drug abuse patient.[facility] the event this information is protected by the Federal Confidentiality of Alcohol and Drug Abuse Patient Records regulations: The Federal rules restrict any use of the information to criminally investigate or prosecute any alcohol or drug abuse patient.[facility] the event this information is protected by the Federal Confidentiality of Alcohol and Drug Abuse Patient Records regulations: The Federal rules restrict any use of the information to criminally investigate or prosecute any alcohol or drug abuse patient.[facility] Hospital[facility] the event this information is protected by the Federal Confidentiality of Alcohol and Drug Abuse Patient Records regulations: The Federal rules restrict any use of the information to criminally investigate or prosecute any alcohol or drug abuse patient.[facility] Hospital[facility] the event this information is protected by the Federal Confidentiality of Alcohol and Drug Abuse Patient Records regulations: The Federal rules restrict any use of the information to criminally investigate or prosecute any alcohol or drug abuse patient.[facility] Hospital[facility] the event this information is protected by the Federal Confidentiality of Alcohol and Drug Abuse Patient Records regulations: The Federal rules restrict any use of the information to criminally investigate or prosecute any alcohol or drug abuse patient.[facility] HospitalIn the event this information is protected by the Federal Confidentiality of Alcohol and Drug Abuse Patient Records regulations: The Federal rules restrict any use of the information to criminally investigate or prosecute any alcohol or drug abuse patient.[facility] Hospital[facility] the event this information is protected by the Federal Confidentiality of Alcohol and Drug Abuse Patient Records regulations: The Federal rules restrict any use of the information to criminally investigate or prosecute any alcohol or drug abuse patient.[facility] Hospital[facility] the event this information is protected by the Federal Confidentiality of Alcohol and Drug Abuse Patient Records regulations: The Federal rules restrict any use of the information to criminally investigate or prosecute any alcohol or drug abuse patient.[facility] Hospital[facility] the event this information is protected by the Federal Confidentiality of Alcohol and Drug Abuse Patient Records regulations: The Federal rules restrict any use of the information to criminally investigate or prosecute any alcohol or drug abuse patient.[facility] Reason for Visit (unrecogniz ed section and content) Reason Comments Cough x 2 weeks, sore thro at x 1 day Reason Comments Edema bilateral ankles and feet, sciatic pain on right side x 2-3 days Reason Comments Biopsy Reason Comments Follow Up [facility] on 02/18. Swelling Establish Care Recently had blood w ork at [facility] New Patient Swelling Under chin. States s welling goes down with antibiotic Hypertension Diabetes Recently diagnosed 2 months ago. Was on Ozempic. Last took 2 weeks ago. Was on 0.25mg discuss tylenol and ibuprofen leg swelling Sleep Apnea Wants testing Reason Comments Diabetes Running high 120-160 s Rectal Problem Eye Problem Eyes watering more r ecently Edema Bilat anklesRight si de more Results Biopsy at Derm - las t Large skin tag removed - stitches Medication Problem Metformin - would li ke to discuss options Thinks it may be causing swelling Medication Follow-up Needs new rx for la ncets - current rx does not work Thyroid Problem Labs off Hyperlipidemia Labs off Reason Comments Medication Authorization Ozempic Reason Comments Medication Authorization ozempic Reason Comments Radiology CT Specialty Diagnoses / Procedures Referred By Zen segura Referred To Contact CT IMAGING Diagnoses Submental mass Procedures CT NECK SOFT TISSUE WO IVCON CT SOFT TISSUE NECK W/O CONTRAST MATERIAL Rylan Miller, [place] [address] Phone: tel: fax: [facility] [place] [id number] Referral ID Status Reason Start Date Expiration Date V isits Requested Visits Authorized [id number] Closed Auto-Generate d Referral 02/22/2025 03/24/2026 [address] results and echo results. Patient requesting skin biopsy results Follow Up 3 week recheck Suture Removal Placed 02/28/25 Reason Comments New Patient Psoriasis Specialty Diagnoses / Procedures Referred By Zen segura Referred To Contact Dermatology Diagnoses Psoriasis Procedures CONSULT TO DERMATOLOGY OFFICE/OUTPATIENT [facility] HIGH MDM 60 MINUTES Paul Rylanaries Ríos, [place] [address] Phone: tel: fax: Referral ID Status Reason Start Date Expiration Date V isits Requested Visits Authorized [id number] Closed PCP Requested Referral 02/22/2025 02/22/2026 1 1 (unrecognized sect ion and content) No Status Records FoundNo Status Records FoundNo Status Records FoundNo Status Records Found INFORMATION SOURCE (unrecogn ized section and content) DATE CREATED AUTHOR 02/24/2025 [facility] DATE CREATED AUTHOR AUTHOR'S ORGANIZ ATION 02/24/2025 [facility] DATE CREATED AUTHOR AUTHOR'S ORGANIZ ATION 03/28/2025 [facility] DATE CREATED AUTHOR AUTHOR'S JENNIFER ATION 04/05/2025 [facility] FOR RECORDS PERTAINING TO PATIENTS WHO ARE OR HAVE BEEN ENROLLED IN A CHEMICAL DEPENDENCY/SUBSTANCEABUSE PROGRAM, SOME INFORMATION MAY BE OMITTED. This clinical summary was aggregated from multiple sources. Caution should be exercised in using it in the provision of clinical care. This summary normalizes information from multiple sources, and as a consequence, information in this document may materially change the coding, format and clinical context of patient data. In addition, data may be omitted in some cases. CLINICAL DECISIONS SHOULD BE BASED ON THE PRIMARY CLINICAL RECORDS. [facility] [employer] [facility]. provides no warranty or guarantee of the accuracy or completeness of information in this document.
== END 2025-05-03 14:51 | disposition home or self-care (01) ==
PROVIDERS: Emergency Provider Emergency Medicine; PCP Family Medicine; Visit Provider Emergency Medicine
DX: R22.0 Localized swelling, mass and lump, head (principal); E11.9 Type 2 diabetes mellitus without complications; Z87.891 Personal history of nicotine dependence; Z79.84 Long term (current) use of oral hypoglycemic drugs; R03.0 Elevated blood-pressure reading, without diagnosis of hypertension
CPT/HCPCS: 70491; 80048; 85025; 99284; Q9967; A4216

== ENCOUNTER 2025-10-26 17:00 | Emergency (ER) | payer BC, SELFPAY ==
[2025-10-26 17:01] VITALS: BP 142/95; PULSE 69; RESP 16; TEMP 36.3; O2SAT 96; BMI 32.0
--- NOTE | 2025-10-26 17:17 | EX.ED.VIS.UR ---
HPI HPI - URI History of Present Illness Chief Complaint: Cold Sx Informant: patient Onset/Context/Timing Onset: Today and Yesterday Context: Gradual Onset Timing: Continuous Current Severity: Mild Associated Symptoms Associated Symptoms: Positive for Nasal Congestion, Myalgias and Nonproductive cough Narrative Narrative: 54-year-old diabetic male history of hypertension and prior pancreatitis. Said he is having trouble smelling colognes or perfumes in people and has had URI symptoms last 2 days he is concerned he may have COVID. Said nausea no vomiting or diarrhea no fever or chills. Nonproductive cough runny nose. No dysuria. No chest pain no shortness of breath. He is diabetic. He does not typically check his blood sugars. Prior similar symptoms: Yes Recent Illness/Hospitalization: No ROS ROS ED ROS Narrative URI symptoms. Nonproductive cough. Decreased ability smell. Mild nausea. No vomiting or diarrhea. Constitutional Constitutional ED: Denies chills or fever(s) Eyes Eyes: Denies blurry vision ENT ENT ED: Denies ear pain Cardiovascular Cardiovascular: Denies chest pain Respiratory/Chest Respiratory/Chest: Reports cough; Denies dyspnea or dyspnea on exertion Gastrointestinal Gastrointestinal: Reports nausea; Denies abdominal pain, constipation, diarrhea, melena or vomiting Genitourinary Genitourinary ED: Denies dysuria or hematuria Musculoskeletal Musculoskeletal: Reports myalgias; Denies arthralgias Integumentary Denies abscess Neurologic Neurologic: Denies headache(s) Psychiatric Psychiatric: Denies anxiety Endocrine Endocrinology: Denies cold intolerance Hematologic/Lymphatic Hematologic/Lymphatic: Denies easy bleeding, easy bruising or lymphadenopathy Allergic/Immunologic Allergic/Immunologic ED: Denies mouth swelling, tongue swelling or urticaria [facility] Medical History Pancreatitis No previous significant medical history Home Medications ?Medication ?Instructions ?Recorded ?Last Taken ?Type amlodipine 10 mg tablet (Norvasc) 10 mg PO DAILY #30 tabs 11/25/24 Unknown Rx erythromycin 5 mg/gram (0.5 %) eye 1 applic RIGHT EYE BID 7 days #50 11/25/24 Unknown Rx ointment grams losartan 100 1 tab PO DAILY 12/21/24 Unknown History mg-hydrochlorothiazide 25 mg tablet amoxicillin 875 mg-potassium 1 tab PO BID 7 days #14 tabs 12/22/24 Unknown Rx clavulanate 125 mg tablet meclizine 25 mg tablet 25 mg PO 4X/DAY PRN PRN Dizziness 02/04/25 Unknown Rx #20 tabs metformin 500 mg tablet 500 mg PO BID 02/04/25 Unknown History Allergy/AdvReac Type Severity Reaction Status Date / Time No Known Allergies Allergy Verified 10/26/25 17:02 Social History household members: significant other Smoking Status: Former smoker substance use type: does not use EXAM Physical Exam Narrative Exam Narrative: 52-year-old male sitting upright in bed vital signs stable afebrile does not look septic toxic no acute distress. Pulse ox 96% on room air no hypoxia. H EENT exam TMs unremarkable posterior pharynx normal. No erythema or exudate. Moist mucous membranes. Neck nontender no lymphadenopathy. Back nontender. Lungs clear to auscultation bilaterally. Heart regular rate and rhythm rate about 70 no murmur. Chest wall nontender. Abdomen soft nontender. Moving all 4 extremities. Normal clinical training coordinator strength. Normal dorsi plantarflexion. No edema. Calves nontender. Neurologically is awake alert. Answer questions following commands. Const Vital Signs: 10/26/25 17:01 10/26/25 17:06 Temperature 97.3 F L Temperature Source Temporal Pulse Rate 69 Respiratory Rate 16 Respiratory Effort Normal Non-Labored Blood Pressure 142/95 H Blood Pressure Mean 110 Pulse Ox 96 Oxygen Delivery Method Room Air MDM MDM MDM Narrative Medical decision making narrative: 54-year-old diabetic male URI symptoms most likely viral. COVID and RSV and flu will be obtained. A blood sugar due to his diabetes. I do not think he needs any imaging. Repeat exam patient is doing well at 6:22 PM. Be discharged to home. Outpatient follow-up as needed. Treated as a viral syndrome. Given a work excuse. Lab Data Attestation: I reviewed the patient's lab results. Lab results narrative: COVID, flu and RSV are all negative. Blood sugar is 135 is a known diabetic. Labs: Laboratory Results - last 24 hr 10/26/25 17:19 POC Glucose 135 H Discharge Plan Triage Chief Complaint: Cold Sx ED Provider: Burton Maki Dx/Rx/DC Orders Clinical Impression: Viral URI Instructions: ED URI, Viral, No Abx (Adult) Prescriptions: No Action amlodipine [Norvasc] 10 mg tablet 10 mg PO DAILY Qty: 30 3RF erythromycin 5 mg/gram (0.5 %) ointment 1 applic RIGHT EYE BID 7 Days Qty: 50 0RF losartan-hydrochlorothiazide 100-25 mg tablet 1 tab PO DAILY amoxicillin-pot clavulanate 875-125 mg tablet 1 tab PO BID 7 Days Qty: 14 0RF metformin 500 mg tablet 500 mg PO BID meclizine 25 mg tablet 25 mg PO 4X/DAY PRN PRN (Reason: Dizziness) Qty: 20 0RF Primary Care Provider: Sandy Miller Referrals: Sandy Miller, [Primary Care Provider, Medical] - As Needed Activity Restrictions/Additional Instructions: Your COVID, and flu test were negative. Plenty of fluids and rest. Motrin and Tylenol for body aches. Follow-up with your doctor as needed. Off work today. Print Language: Monegasque Disposition Disposition: Home, Self Care
--- OUTSIDE RECORDS SUMMARY | 2025-10-26 17:28 | XMS RPT_ITS | CCD ---
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 Rio Norris DO Attending Provider Dr. Rio Norris DO Emergency Provider [phone] Victor Manuel Frank DO Attending Provider Dr. Victor Manuel Frank DO Emergency Provider Kinjal Bal Primary Care Provider Dr. Norbert Maharaj DO Attending Provider Dr. Norbert Maharaj DO Emergency Provider RAMÓN MILLER Referring RAMÓN Christy Primary Care LorrainevaADELE Salinas Referring Unavailable Dr. Danish Li MD Emergency Provider [phone] Ramón Miller DO Primary Care [facility] [place] [facility]-Kinjal Mccord Primary Care Provider [phone] Dr. Rio Norris DO Attending Provider Dr. Rio Norris DO Emergency Provider Dr. Danish Li MD Attending Provider Dr. Sandy Miller DO Primary Care Provider Unavailable Primary Care Provider Unavailabl e Care Physician, No Primary Primary Care Unava ilable Burton Maki Attending Unavailable Care Physician, No Primary Primary Care Unava ilable Rio Norris Attending Unavailable Care Physician, No Primary Primary Care Unava ilable Victor Manuel Frank Attending Unavailable Kinjal Paulson Primary Care Unavailable Rio Norris Attending Unavailable [facility], Kinjal Primary Care Unavailable Danish Li Attending Unavailable Danish Li Attending Unavailable [facility] [place] [facility] Unavailable Norbert Maharaj Attending Unavailable Care Physician, No Primary Primary Care Unava ilable Rich Lopez Attending Unavailable Care Physician, No Primary Primary Care Unava ilable Abdiaziz Villeda Attending Unavailable Care Physician, No Primary Primary Care Unava ilable Rio Norris Attending Unavailable Care Physician, No Primary Primary Care Unava ilable Rio Norris Attending Unavailable PROVIDER, UNKNOWN Attending Unavailable PROVIDER, UNKNOWN Admitting Unavailable GERMAINE KONG Referring Unavailable PROVIDER, UNKNOWN Admitting Unavailable GERMAINE KONG Attending Unavailable [facility], [facility] Referring Unavai lable PAUL, [facility] Primary Care Unavai lable PAUL, [place] [facility] Referring Unavai lable PAUL, [facility] Primary Care Unavai labmikey MILLER, [facility] Referring Unavai lable PAUL, [facility] Primary Care Unavai lable PAUL, [facility] Primary Care RULA Chiang Attending Unavailab le SELF Referring Unavailable [facility], [facility] Primary Care RULA Chiang Attending Unavailab le SELF Referring Unavailable [facility], [facility] Primary Care Unavarobbi labmikey MILLER, [place] Attending Ramin MILLER, [facility] Primary Care Unavai labmikey MILLER, [place] Attending Lorrainevarobbi labmikey MILLER, [facility] Primary Care Unavai lable PAUL, [place] Attending Ramin draperle SELF Referring Unavailable PAUL, [facility] Primary Care Unavai labmikey MILLER, [place] Attending Ramin enrique Medications Current Medications Medication Drug Class(es) Dates Sig (Normalized) Sig (Original) amLODIPine 10 mg oral tablet (10 sources) Dihydropyridine Calcium Channel Sharona Start: 11-25-2024 End: 03-04-2025 take 1 tablet by mouth once daily Amlodipine (Norvasc) 10 mg tablet Active 10 mg PO DAILY November 25, 2024 1:00am amoxicillin 875 mg / clavulanate 125 mg oral tablet (11 sources) Penicillin-class Antibacterial Start: 12-22-2024 Amoxicillin-Pot Clavulanate 875-125 mg tablet Active 1 {tbl} PO TWICE A DAY 14 December 22, 2024 1:00am Start: 05-01-2023 End: 11-25-2024 Amoxicillin-Pot Clavulanate 875-125 mg tablet Discontinued 1 {tbl} PO TWICE A DAY July 28, 2024 12:00am November 25, 2024 9:49pm Start: 05-01-2023 take 1 tablet by meryl th twice daily Amoxicillin-Pot Clavulanate Active 1 TABLET PO TWICE A DAY 14 May 01, 2023 12:00am atorvastatin 40 mg oral tablet (12 sources) HMG-CoA Reductase Inhibitor Start: 03-04-2025 End: 03-04-2026 take 1 tablet by mouth once daily atorvastatin (LIPITOR) 40 mg tablet Indications: Mixed hyperlipidemia Take 1 tablet by mouth once daily. 90 tablet 3 03/04/2025 03/04/2026 Active Blood-Glucose Meter (17 sources) Start: 02-22-2025 Blood-Glucose Meter Use to test blood sugar 3 times daily. 1 Each 02/22/2025 Active Blood-Glucose Sensor (FREESTYLE MALENA 3 PLUS SENSOR) bernabe (17 sources) Start: 02-22-2025 Blood-Glucose Sensor (FREESTYLE MALENA 3 PLUS SENSOR) bernabe Use to check blood sugar 3 times daily. 2 Each 02/22/2025 Active calcipotriene 0.86261 mg/mg topical ointment (14 sources) Vitamin D Analog Start: 02-28-2025 calcipotriene (DOVONEX) 0.005 % oint Apply to any affected areas two times daily on sat and sun. 120 g 5 02/28/2025 Active clobetasol propionate 0.0005 mg/mg topical ointment (14 sources) Corticosteroid Start: 02-28-2025 clobetasol (TEMOVATE) 0.05 [...] 02/12/2025 Active erythromycin 0.005 mg/mg ophthalmic ointment (3 sources) Macrolide, Macrolide Antimicrobial Start: 11-25-2024 Erythromycin 5 mg/gram (0.5 %) ointment Active 1 NMA RIGHT EYE TWICE A DAY 50 November 25, 2024 1:00am hydroCHLOROthiazide 25 mg / losartan potassium 100 mg oral tablet (20 sources) Thiazide Diuretic, Angiotensin 2 Receptor Sharona Start: 12-13-2024 take 1 tablet by mouth once daily losartan-hydroCHL OROthiazide (HYZAAR) 100-25 mg per tablet Take 1 tablet by mouth once daily. 12/13/2024 Active hydrocortisone acetate 10 mg/ml / pramoxine hydrochloride 10 mg/ml rectal cream (12 sources) Corticosteroid Start: 03-04-2025 End: 04-03-2025 apply 1 dose rectal route twice daily Pramoxine-Hydroco rtisone (ANALPRAM-HC) 1-1 % rectal cream Indications: Rectal bleeding by RECTAL route two times a day. 30 g 03/04/2025 Active levothyroxine sodium 0.025 mg oral tablet (12 sources) l-Thyroxine Start: 03-04-2025 End: 03-04-2026 take 1 tablet by mouth once daily levothyroxine (SYNTHROID) 25 mcg tablet Indications: Other specified hypothyroidism Take 1 tablet by mouth once daily. 90 tablet 3 03/04/2025 03/04/2026 Active meclizine hydrochloride 25 mg oral tablet (20 sources) Antiemetic Start: 02-04-2025 take 1 tablet by mouth four times daily as needed for dizziness meclizine (ANTIVERT) 25 mg tab TAKE 1 TABLET BY MOUTH FOUR TIMES DAILY NEEDED for dizziness 02/04/2025 Active 24 hr metFORMIN hydrochloride 500 mg extended release oral tablet (20 sources) Biguanide Start: 08-05-2025 End: 08-05-2026 take 2 tablets by mouth once daily metFORMIN ER (GLUCOPHAGE XR) 500 mg 24 hr tablet Take 2 tablets by mouth once daily. 180 tablet 3 08/05/2025 08/05/2026 Active Start: 02-04-2025 take 1 tablet by meryl th twice daily Metformin 500 mg tablet Active 500 mg PO TWICE A DAY February 04, 2025 12:00am Start: 01-04-2025 End: 07-23-2025 take 1 tablet by mouth every twelve hours metFORMIN (GLUCOPHAGE) 500 mg tablet Indications: Type 2 diabetes mellitus without complication, without long-term current use of insulin (HCC) Take 1 tablet by mouth every 12 hours. 180 tablet 07/24/2025 Active 24 hr metoprolol succinate 25 mg extended release oral tablet (17 sources) beta-Adrenergic Sharona Start: 02-22-2025 End: 08-21-2025 take 1 tablet by mouth once daily metoprolol succinate ER (TOPROL XL) 25 mg 24 hr tablet Indications: Uncontrolled hypertension Take 1 tablet by mouth once daily. 30 tablet 5 02/22/2025 08/21/2025 Active semaglutide (OZEMPIC) 0.25 mg or 0.5 mg (2 mg/3 mL) pen (17 sources) Start: 03-04-2025 End: 06-02-2025 semaglutide (OZEMPIC) [...] / oxyCODONE hydrochloride 5 mg oral tablet (4 sources) Opioid Agonist Start: 05-02-2023 End: 11-25-2024 Oxycodone-Acetamino phen 5-325 mg tablet Discontinued 1 {tbl} PO EVERY 6 HOURS NEEDED as needed for Pain 3 May 02, 2023 November 25, 2024 9:49pm Start: 05-02-2023 take 1 tablet by meryl th every six hours as needed Oxycodone-Acetaminophen Active 1 TABLET PO EVERY 6 HOURS NEEDED 12 3 May 02, 2023 [id number] 200 actuat albuterol 0.09 mg/actuat metered dose inhaler (3 sources) beta2-Adrenergic Agonist Start: 08-23-2024 End: 11-25-2024 Albuterol Sulfate (Ventolin Hfa) 90 mcg/actuation HFA aerosol inhaler Discontinued 1 - 2 NMA INHALATION EVERY 4 HOURS NEEDED as needed for Wheezing August 23, 2024 12:00am November 25, 2024 9:49pm benzonatate 100 mg oral capsule (3 sources) Non-narcotic Antitussive Start: 08-13-2024 End: 11-25-2024 [...] guaiFENesin 600 mg extended release oral tablet (3 sources) Start: 08-23-2024 End: 11-25-2024 take 1 tablet by mouth every twelve hours as needed for congestion, then take 1 tablet by mouth every twelve hours as needed for congestion Guaifenesin (Mucinex) 600 mg tablet extended release 12hr Discontinued 600 mg PO Q12H as needed for congestion August 23, 2024 12:00am November 25, 2024 9:49pm Problems Active Problems Problem Classification Problem Date Documented Da te Episodic/Chronic Acute bronchitis (6 sources) Acute viral bronchitis; Translations: [Acute bronchitis due to other specified organisms] 07-03-2021 Episodic Alcohol-related disorders (6 sources) Alcohol abuse; Translations: [Alcohol abuse, uncomplicated] 12-18-2019 Chronic Conditions associated with dizziness or vertigo (3 sources) Benign paroxysmal positional vertigo; Translations: [Benign paroxysmal vertigo, unspecified ear] 02-04-2025 Episodic Diabetes mellitus with complications (3 sources) Hyperglycemia due to type 2 diabetes mellitus; Translations: [Type 2 diabetes mellitus with hyperglycemia] Onset: 02-22-2025 02-18-2025 Chronic Diabetes mellitus without complication (20 sources) Diabetes mellitus; Translations: [Diabetes mellitus without mention of complication, type II or unspecified type, not stated as uncontrolled] Onset: 02-22-2025 12-30-2024 Chronic Diseases of mouth; excluding dental (1 source) Mass of tongue; Translations: [Other diseases of tongue] 05-03-2025 Episodic Disorders of lipid metabolism (3 sources) Mixed hyperlipidemia; Translations: [Mixed hyperlipidemia] Onset: 03-04-2025 03-04-2025 Chronic Disorders of teeth and jaw (3 sources) Gingivitis; Translations: [Chronic gingivitis, plaque induced] Onset: 03-04-2025 03-06-2025 Chronic Disorders of teeth and jaw (20 sources) Toothache; Translations: [Other specified disorders of teeth and supporting structures] 05-01-2023 Episodic Essential hypertension (20 sources) Hypertensive disorder; Translations: [Essential (primary) hypertension] Onset: 02-22-2025 12-30-2024 Chronic Genitourinary symptoms and ill-defined conditions (2 sources) Proteinuria; Translations: [Proteinuria, unspecified] 02-18-2025 Episodic Headache; including migraine (1 source) Headache; including migraine; Translations: [Headache, unspecified] Onset: 02-15-2025 Lymphadenitis (4 sources) Submental lymphadenopathy; Translations: [Localized enlarged lymph nodes] 02-05-2025 Episodic Neoplasms of unspecified nature or uncertain behavior (1 source) Neoplasm of skin; Translations: [Neoplasm of unspecified behavior of bone, soft tissue, and skin] 04-01-2025 Episodic Other aftercare (1 source) Removal of sutures done; Translations: [Encounter for removal of sutures] 03-14-2025 Episodic Other congenital anomalies (4 sources) Thyroglossal duct cyst; 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] 05-10-2025 Chronic Other congenital anomalies (1 source) Congenital malformations of other endocrine glands; 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] Onset: 05-13-2025 Chronic Other diseases of veins and lymphatics (2 sources) Lymphedema of bilateral lower limbs; Translations: [Lymphedema, not elsewhere classified] 02-18-2025 Chronic Other eye disorders (3 sources) Red eye; Translations: [Other specified disorders of eye and adnexa] 11-04-2024 Episodic Other gastrointestinal disorders (1 source) Defecation straining; Translations: [Other specified symptoms and signs involving the digestive system and abdomen] 03-04-2025 Episodic Other inflammatory condition of skin (3 sources) Psoriasis; Translations: [Psoriasis, unspecified] 03-06-2025 Chronic Other inflammatory condition of skin (1 source) Psoriasis vulgaris; Translations: [Psoriasis vulgaris] 04-01-2025 Chronic Other inflammatory condition of skin (2 sources) Psoriasis, unspecified; Translations: [Psoriasis] Onset: 02-28-2025 Chronic Other lower respiratory disease (12 sources) Cough; Translations: [Cough] 10-30-2022 Episodic Other lower respiratory disease (2 sources) Cough; Translations: [Acute cough] 02-05-2025 Episodic Other lower respiratory disease (2 sources) Dyspnea; Translations: [Shortness of breath] 03-06-2025 Episodic Other nutritional; endocrine; and metabolic disorders (18 sources) Body mass index 40+ - severely obese; Translations: [Body mass index (BMI) 40.0-44.9, adult] Onset: 03-06-2025 02-22-2025 Chronic Other nutritional; endocrine; and metabolic disorders (1 source) Body mass index (BMI) 40.0-44.9, adult; Translations: [BMI 40.0-44.9, adult ([facility])] Onset: 03-06-2025 Chronic Other screening for suspected conditions (not mental disorders or infectious disease) (13 sources) Encounter for screening for lipoid disorders; Translations: [Encounter for screening for other suspected endocrine disorder] Onset: 02-22-2025 02-22-2025 Episodic Other skin disorders (4 sources) Facial swelling ; Translations: [Localized swelling, mass and lump, head] 05-02-2023 Episodic Other skin disorders (1 source) Skin tag; Translations: [Other hypertrophic disorders of the skin] 03-05-2025 Episodic Other skin disorders (1 source) Eruption; Translations: [Rash and other nonspecific skin eruption] 04-01-2025 Episodic Other skin disorders (5 sources) Mass of neck; Translations: [Localized swelling, mass and lump, neck] 05-13-2025 Episodic Other skin disorders (1 source) Other hypertrophic disorders of the skin; Translations: [Skin tags, multiple acquired] Onset: 08-05-2025 Episodic Other upper respiratory infections (3 sources) Sinusitis; Translations: [Chronic sinusitis, unspecified] 08-05-2024 Chronic Other upper respiratory infections (11 sources) Acute viral pharyngitis; Translations: [Acute pharyngitis, unspecified] Onset: 05-10-2025 04-21-2021 Episodic Pancreatic disorders (not diabetes) (6 sources) Acute pancreatitis; Translations: [Acute pancreatitis without necrosis or infection, unspecified] 12-18-2019 Episodic Residual codes; unclassified (4 sources) Obstructive sleep apnea syndrome; Translations: [Obstructive sleep apnea (adult) (pediatric)] 08-31-2024 Chronic Residual codes; unclassified (1 source) Sleep apnea; Translations: [Sleep apnea, unspecified] 02-22-2025 Chronic Residual codes; unclassified (2 sources) Obstructive sleep apnea (adult) (pediatric); Translations: [Obstructive sleep apnea] Onset: 03-14-2025 Chronic Residual codes; unclassified (1 source) Sleep apnea, unspecified; Translations: [Observed sleep apnea] Onset: 02-22-2025 Chronic Residual codes; unclassified (1 source) Peripheral edema; Translations: [Localized edema] 02-18-2025 Episodic Residual codes; unclassified (2 sources) Bilateral lower limb edema; Translations: [Localized edema] 02-22-2025 Episodic Residual codes; unclassified (1 source) Edema, unspecified; Translations: [Edema, unspecified] Onset: 02-23-2025 Episodic Spondylosis; intervertebral disc disorders; other back problems (1 source) Sciatica, right side; Translations: [Sciatica of right side] Onset: 08-05-2025 Episodic Thyroid disorders (3 sources) Hypothyroidism; Translations: [Other specified hypothyroidism] Onset: 03-04-2025 03-04-2025 Chronic Unclassified (2 sources) Acute cough; Translations: [Acute cough] Onset: 02-05-2025 Unclassified (1 source) APPOINTMENT CANCELLED 02-28-2025 Unclassified (1 source) Cough, unspecified; Translations: [Cough, unspecified] Onset: 09-12-2024 Viral infection (6 sources) Disease caused by 2019-nCoV; Translations: [COVID-19] 10-22-2022 Episodic Past or Other Problems Problem Classification Problem Date Documented Da te Episodic/Chronic Abdominal hernia (2 sources) Umbilical hernia; Translations: [Umbilical hernia without obstruction or gangrene] Onset: 02-22-2025 02-22-2025 Episodic Gastrointestinal hemorrhage (2 sources) Rectal hemorrhage; Translations: [Hemorrhage of anus and rectum] Onset: 03-04-2025 03-04-2025 Episodic Inflammation; infection of eye (except that caused by tuberculosis or sexually transmitteddisease) (8 sources) Viral conjunctivitis; Translations: [Viral conjunctivitis, unspecified] Onset: 10-01-2024 09-16-2024 Episodic Other aftercare (1 source) Encounter for removal of sutures; Translations: [Visit for suture removal] Onset: 03-14-2025 Episodic Other eye disorders (1 source) Other specified disorders of eye and adnexa; Translations: [Other specified disorders of eye and adnexa] Onset: 11-27-2024 Episodic Other gastrointestinal disorders (1 source) Other specified symptoms and signs involving the digestive system and abdomen; Translations: [Straining during bowel movements] Onset: 03-04-2025 Episodic Other lower respiratory disease (3 sources) Shortness of breath; Translations: [Shortness of breath] Onset: 09-14-2024 Episodic Other skin disorders (19 sources) Mass of submental region; Translations: [Localized swelling, mass and lump, neck] Onset: 03-06-2025 03-06-2025 Episodic Other skin disorders (10 sources) Scleromyxedema; 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] Onset: 03-26-2025 03-14-2025 Episodic Other skin disorders (3 sources) Localized swelling, mass and lump, neck; Translations: [Localized swelling, mass and lump, neck] Onset: 02-22-2025 Episodic Other skin disorders (1 source) Mucinosis of the skin; Translations: [Scleromyxedema] Onset: 03-26-2025 Episodic Residual codes; unclassified (1 source) Localized edema; Translations: [Bilateral leg edema] Onset: 03-04-2025 Episodic Screening and history of mental health and substance abuse codes (17 sources) Ex-smoker; Translations: [Personal history of nicotine dependence] Onset: 03-06-2025 02-22-2025 Episodic Unclassified (6 sources) No previous significant medical history 06-28-2022 Varicose veins of lower extremity (2 sources) Varicose veins of lower limb co-occurrent with edema; Translations: [Varicose veins of bilateral lower extremities with other complications] Onset: 03-04-2025 03-04-2025 Episodic Results Test Name Value Interpretation Reference Range Facility [facility] 09-04-2025 CNPN Telephone (FPDOYL) -- JAI GREEN ([id number]) 1970 M Date Time Provider Department 09/04/25 RAMÓN MILLER FPDOYL During your visit today, we recorded the following information about you: Avtar Romano 09/04/2025 12:26 PM Signed Spoke to patient in regards to their medications. Patient is going out of town and is requesting a refill of their metFORMIN ER 500 mg, atorvastatin 40 mg, levothyroxine 25 mcg, losartan 100-25 mg and metoprolol succinate ER 25 mg be sent to the [facility] in [place]. Patient is also requesting they be for 90 day supplies instead of 30 day because they state their insurance will not cover the 30 day supplies. I said I would send the message back. Thanks. Shari Jaraimllo LPN 09/04/2025 1:46 PM Signed Medication pended. Rmaón Miller DO 09/05/2025 2:47 PM Signed Addended by: RAMÓN MILLER on: 09/05/2025 02:47 PM Modules accepted: Orders Allergies As of Date: 09/04/2025 (No Known Allergies) Date Reviewed: 08/05/2025 Reviewed by: Shari Meier LPN - Fully Assessed Reason for Visit: Medication Request [138] Cmt: Refills Visit Diagnoses:Type 2 diabetes mellitus without complication, without long-term current use of insulin (HCC) [E11.9] Mixed hyperlipidemia [E78.2] Other specified hypothyroidism [E03.8] Uncontrolled hypertension [I10] Order(s):atorvastatin (LIPITOR) 40 mg tabletTake 1 tablet by mouth once daily.Disp: 90 tabletRfl: 0 levothyroxine (SYNTHROID) 25 mcg tabletTake 1 tablet by mouth once daily.Disp: 90 tabletRfl: 0 losartan-hydroCHLOROthiazi de (HYZAAR) 100-25 mg per tabletTake 1 tablet by mouth once daily.Disp: 90 tabletRfl: 0 metFORMIN ER (GLUCOPHAGE XR) 500 mg 24 hr tabletTake 2 tablets by mouth once daily.Disp: 180 tabletRfl: 3 metoprolol succinate ER (TOPROL XL) 25 mg 24 hr tabletTake 1 tablet by mouth once daily.Disp: 90 tabletRfl: 0 metFORMIN (GLUCOPHAGE) 500 mg tabletTake 1 tablet by mouth every 12 hours.Disp: 180 tabletRfl: 0 Prescriptions as of 09/05/2025 - atorvastatin (LIPITOR) 40 mg tablet Take 1 tablet by mouth once daily. - levothyroxine (SYNTHROID) 25 mcg tablet Take 1 tablet by mouth once daily. - losartan-hydroCHLOROthiazi de (HYZAAR) 100-25 mg per tablet Take 1 tablet by mouth once daily. - metFORMIN ER (GLUCOPHAGE XR) 500 mg 24 hr tablet Take 2 tablets by mouth once daily. - metoprolol succinate ER (TOPROL XL) 25 mg 24 hr tablet Take 1 tablet by mouth once daily. - metFORMIN (GLUCOPHAGE) 500 mg tablet Take 1 tablet by mouth every 12 hours. - lancets (ULTRA THIN PLUS LANCETS) 33 gauge 1 each three times a day with meals. Use with blood glucose test three times a day. Insulin Dep? Yes - Pramoxine-Hydrocortisone (ANALPRAM-HC) 1-1 % rectal cream by RECTAL route two times a day. - clobetasol (TEMOVATE) 0.05 % ointment Apply to affected area twice daily Tuesday to Tuesday as needed. Not for face, armpits or groin - calcipotriene (DOVONEX) 0.005 % oint Apply to any affected areas two times daily on sat and sun. - Blood-Glucose Meter Use to test blood sugar 3 times daily. - Lancets Use to test blood sugar 3 times daily. - blood sugar diagnostic (BLOOD GLUCOSE TEST) test strip Use to test blood sugar 3 times daily. - Blood-Glucose Sensor (FREESTYLE MALENA 3 PLUS SENSOR) bernabe Use to check blood sugar 3 times daily. 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 LEVOTHYROXINE 25 MCG TABLET 90 t* 0 09/05/2025 12/04/2025 Route: PO Sig: Take 1 tablet by mouth once daily. LOSARTAN 100 MG-HYDROCHLOROTHIAZIDE * 90 t* 0 09/05/2025 12/04/2025 Route: PO Sig: Take 1 tablet by mouth once daily. METFORMIN ER 500 MG TABLET,EXTENDED * 180 * 3 09/05/2025 09/05/2026 Route: PO Sig: Take 2 tablets by mouth once daily. METOPROLOL SUCCINATE ER 25 MG TABLET* 90 t* 0 09/05/2025 12/04/2025 Route: PO Sig: Take 1 tablet by mouth once daily. METFORMIN 500 MG TABLET 180 * 0 09/05/2025 Route: PO Sig: Take 1 tablet by mouth every 12 hours. Medications Discontinued During This Encounter Prescriptions - losartan-hydroCHLOROthiazi de (HYZAAR) 100-25 mg per tablet (Discontinued) Take 1 tablet by mouth once daily. - metoprolol succinate ER (TOPROL XL) 25 mg 24 hr tablet (Discontinued) Take 1 tablet by mouth once daily. - atorvastatin (LIPITOR) 40 mg tablet (Discontinued) Take 1 t (more content not included)... [facility] PETERJAI ([id number]) 1970 M Date Time Provider Department 08/06/25 [facility] PROVIDER AGGENS4 During your visit today, we recorded the following information about you: Shannan Almanzar 08/06/2025 3:25 PM Signed Pt. Update 08.06.25- 1st Bariatric call no message Shannan Almanzar 08/07/2025 11:34 AM Signed Pt. Update 08.07.25- 2nd call no message phone out of service Allergies As of Date: 08/06/2025 (No Known Allergies) Date Reviewed: 08/05/2025 Reviewed by: Shari Meier LPN - Fully Assessed Reason for Visit: Appointment [[id number]] Cmt: Bariatric Prescriptions as of 08/07/2025 - metFORMIN ER (GLUCOPHAGE XR) 500 mg 24 hr tablet Take 2 tablets by mouth once daily. - metFORMIN (GLUCOPHAGE) 500 mg tablet Take 1 tablet by mouth every 12 hours. - lancets (ULTRA THIN PLUS LANCETS) 33 gauge 1 each three times a day with meals. Use with blood glucose test three times a day. Insulin Dep? Yes - atorvastatin (LIPITOR) 40 mg tablet Take [...] times daily on sat and sun. 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] 03/26/2025 Encounter Status:Closed by SHANNAN ALMANZAR on 08/06/25 [facility] CNAkbar 08-05-2025 CNOV Office Visit (FPDOYL ) -- JAI GREEN ([id number]) 1970 M Date Time Provider Department 08/05/25 11:15 AM RAMÓN MILLER During your visit today, we recorded the following information about you: Temperature Pulse Blood pressure Weight 98 degrees 70/minute 140/84 144.7 kg Height 1.829 m Ramón Miller DO 08/14/2025 8:34 PM Signed Subjective The patient is a 54-year-old male with diabetes mellitus, hypertension, obstructive sleep apnea, and sciatica, presenting for hemoglobin A1c recheck. Diabetes: - Recent A1c was 9.4. - Jai denies alcohol consumption and smoking. - Recent dietary changes due to caring for a sick girlfriend. - Jai denies chest pain, pressure, SOB, nausea, vomiting, diarrhea, or constipation. Obesity: - Jai expresses desire to lose weight. - No known family history of obesity. Skin Tags: - Two skin tags under the left axilla; irritating but not infected. MARIMAR: - Using CPAP at night. Sciatica: - Recently started chiropractic treatment; has attended a couple of sessions. - Plans to begin bi-weekly sessions starting tomorrow with Dr. Carnes at [facility]. Review of Systems Cardiovascular: (-) chest pain, (-) chest pressure Respiratory: (-) shortness of breath Gastrointestinal: (-) nausea, (-) vomiting, (-) diarrhea, (-) constipation Skin: (+) irritated left axillary skin tags PAST MEDICAL HISTORY Diagnosis Date Diabetes (HCC) [...] Paternal Grandmother No Known Problems Paternal Grandfather SOCIAL HISTORY[1] Current Outpatient Medications Medication Sig metFORMIN (GLUCOPHAGE) 500 mg tablet Take 1 tablet by mouth every 12 hours. atorvastatin (LIPITOR) 40 mg tablet Take 1 tablet by mouth once daily. levothyroxine (SYNTHROID) 25 mcg tablet Take 1 tablet by mouth once daily. metoprolol succinate ER (TOPROL XL) 25 mg 24 hr tablet Take 1 tablet by mouth once daily. losartan-hydroCHLOROthiazi de (HYZAAR) 100-25 mg per tablet Take 1 tablet by mouth once daily. lancets (ULTRA THIN PLUS LANCETS) 33 gauge 1 each three times a day with meals. Use with blood glucose test three times a day. Insulin Dep? Yes Pramoxine-Hydrocortisone (ANALPRAM-HC) 1-1 % rectal cream by [...] No current facility-administered medications for this visit. Objective BP 140/84 (BP Site: Left Arm, BP Position: Sitting) Pulse 70 Temp 36.7 ?C (98 ?F) Ht 6' (1.829 m) Wt (!) 319 lb (144.7 kg) SpO2 95% BMI 43.26 kg/m? Physical Exam GENERAL: NAD, alert and oriented. SKIN: Two skin tags under the left axilla, no signs of infection. Otherwise unremarkable, no rash or skin lesions. HEAD: Normocephalic. EYES: PERRLA, EOMI, conjunctiva clear. EARS: External ears normal, canals clear, TM's normal. NOSE/SINUSES: Nares normal. Septum midline. OROPHARYNX: Lips, mucosa, and tongue normal, good dentition. No oral lesions noted. NECK: Supple, no lymphadenopathy, normal thyroid, no carotid bruits. LUNGS: Clear to auscultation bilaterally, no wheezes/rhonchi/rales. HEART: Regular rate and rhythm, no murmurs. No ectopy. EXTREMITIES: Normal, no deformities, no skin discoloration, no edema. NEURO: Awake, alert and oriented x3, cranial nerves II-XII grossly intact, normal gait, no involuntary motions. Labs: - Hemoglobin A1c: 9.4% Assessment AND Plan 1. Type 2 diabetes mellitus without complication, without long-term current use of insulin (HCC) (E11.9) 2. Type 2 diabetes mellitus with hyperglycemia, without long-term current use of insulin (HCC) (E11.65) - Recent A1c recheck was 9.4%. - Discussed the importance of weight loss and dietary changes in managing diabetes. 3. Screening for diabetic retinopathy (Z13.5) 4. Primar (more content not included)... Normal [facility] CNPNon 07-25-2025 MAKENNAN Telephone (FPDOYL) -- JAI GREEN ([id number]) 1970 M Date Time Provider Department 07/25/25 RAMÓN MILLER FPDOYL During your visit today, we recorded the following information about you: Natalia Alexander 07/25/2025 2:55 PM Signed ----- Message from Glory El sent at 07/25/2025 12:24 PM EDT ----- Regarding: medicine/ramón miller/medication refill Subject Line Format: Medicine / [Provider Name] / [Issue] [facility] Name For [place] Routing Assistance: [facility] [place] [facility] [place] [facility] [[id number]] Patient: No patient name on file. Date of : There is no date of on file. MRN: No patient ID available Primary Care Provider: No primary care provider on file. Patient has been identified by name and Date of (Y/N): y Patient: No patient name on file. Date of : There is no date of on file. MRN: No patient ID available Provider for this encounter: No primary care provider on file. Reason for the call/escalation: medication Was Patient Referred to [facility]/Seek Emergency Treatment (Y/N): na Did Patient Agree (Y/N): na Was An Attempt Made To Transfer The Patient To The Office (Y/N): na Were You Able To Reach Someone At The Office (Y/N): na If Yes - Patient Was Transferred To (Caregivers Name): na If No - Which [facility] Leadership Aws Architect Did You Speak With Regarding This Patient: na Was an appointment scheduled (Y/N): ab Reason patient was requesting visit (RFV/signs and symptoms/diagnosis) : medication Person calling if other than patient: na Return call to if other than patient: na Best contact number: [phone] Thank you, Glory Calzada July 25, 2025 12:25 PM Natalia Alexander 07/25/2025 2:56 PM Signed Tried to call pt twice on 07/15/2025 and got msg to call another time. Metformin has been sent. Natalia Alexander Allergies As of Date: 07/25/2025 (No Known Allergies) Date Reviewed: 03/14/2025 Reviewed by: Shari Meier LPN - Fully Assessed Prescriptions as of 08/06/2025 - metFORMIN ER (GLUCOPHAGE XR) 500 mg 24 hr tablet Take 2 tablets by mouth once daily. - metFORMIN (GLUCOPHAGE) 500 mg tablet Take 1 tablet by mouth every 12 hours. - lancets (ULTRA THIN PLUS LANCETS) 33 gauge 1 each three times a day with meals. Use with blood glucose test three times a day. Insulin Dep? Yes - atorvastatin (LIPITOR) 40 mg tablet Take [...] times daily on sat and sun. - metoprolol succinate ER (TOPROL XL) 25 [...] Blood-Glucose Sensor (FREESTYLE MALENA 3 PLUS SENSOR) ebrnabe Use to check blood sugar 3 times daily. - losartan-hydroCHLOROthiazi de (HYZAAR) 100-25 mg per tablet Take 1 tablet by mouth once daily. 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 - lancets (ULTRA THIN PLUS LANCETS) 33 gauge 1 each three times a day with meals. Use with blood glucose test three times a day. Insulin Dep? Yes - atorvastatin (LIPITOR) 40 mg tablet Take [...] times daily on sat and sun. - metoprolol succinate ER (TOPROL XL) 25 mg 24 hr tablet Take 1 tablet by mouth once daily. - Blood-Glucose Meter Use to test blood sugar 3 times daily. - Lancets Use to test blood sugar 3 times daily. - blood sugar diagnostic (BLOOD GLUCOSE TEST) test strip Use to test blood sugar 3 times daily. - Blood-Glucose Sensor (XplentySTYLE MALENA 3 PLUS SENSOR) bernabe Use to check blood sugar 3 times daily. - losartan-hydroCHLOROthiazi de (HYZAAR) 100-25 mg per tablet Take 1 tablet by mouth once daily. 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 Patient is requesting a refill of their Metformin 500 mg be sent to [facility] in [place]. Thanks. Shari Jaramillo LPN 07/23/2025 7:27 AM Signed Medication pended off medication list. Ramón MillerDO 07/24/2025 9:55 AM Signed sent Allergies As of Date: 07/22/2025 (No Known Allergies) Date Reviewed: 03/14/2025 Reviewed by: Shari Meier LPN - Fully Assessed Reason for Visit: Medication Request [138] Cmt: Refills Primary Visit Diagnosis:Type 2 diabetes mellitus without complication, without long-term current use of insulin (HCC) [E11.9] Order(s):metFORMIN (GLUCOPHAGE) 500 mg tabletTake 1 tablet by mouth every 12 hours.Disp: 180 tabletRfl: 0 Prescriptions as of 07/24/2025 - metFORMIN (GLUCOPHAGE) 500 mg tablet Take 1 tablet by mouth every 12 hours. - lancets (ULTRA THIN PLUS LANCETS) 33 gauge 1 each three times a day with meals. Use with blood glucose test three times a day. Insulin Dep? Yes - atorvastatin (LIPITOR) 40 mg tablet Take [...] times daily on sat and sun. 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 Medications Discontinued During This Encounter Prescriptions - metFORMIN (GLUCOPHAGE) 500 mg tablet (Discontinued) Take 1 tablet by mouth every 12 hours. Encounter Status:Closed by RAMÓN MILLER on 07/24/25 Normal [facility] Hepatic function 2000 panelo n 06-21-2025 Albumin [Mass/Vol] 4.4 g/dL Normal 3.9-4.9 [facility] Comment on above: Order Comment: Patrick sidhu Type: BLOOD SPECIMEN Ordering Facility: [facility] Address: [address] [place] [address] Performed By: #### 2 4325-3, 15200-3, 3 #### [facility] CLIA [id number] [address] [place] [address] [place] ALP [Catalytic activity/Vol] 78 U/L Normal 38-113 [facility] Comment on above: Order Comment: Patrick sidhu Type: BLOOD SPECIMEN Ordering Facility: [facility] Address: [address] [place] [address] Performed By: #### 2 4325-3, 89660-4, 3 #### [facility] CLIA [id number] [address] [place], [place] [id number] [place] ALT [Catalytic activity/Vol] 27 U/L Normal 10-54 [facility] Comment on above: Order Comment: Speci men Type: BLOOD SPECIMEN Ordering Facility: [facility] Address: [address] [place] [address] Performed By: #### 2 4325-3, 37970-7, 3015-3 #### [facility] CLIA [id number] [address] [place], [place] [address] [place] AST [Catalytic activity/Vol] 29 U/L Normal 14-40 [facility] Comment on above: Order Comment: Speci men Type: BLOOD SPECIMEN Ordering Facility: [facility] Address: [address] [place] [address] Result Comment: Resu lts may be falsely increased due to interference from hemolysis. Suggest reorder as clinically indicated. Performed By: #### 2 4325-3, 08276-1, 3015-3 #### [facility] CLIA [id number] [address] [place] [address] [place] Bilirubin [Mass/Vol] 0.6 mg/dL Normal 0.2-1.3 [facility] Comment on above: Order Comment: Speci men Type: BLOOD SPECIMEN Ordering Facility: [facility] Address: [address] [place] [address] Performed By: #### 2 4325-3, 19303-5, 3 #### [facility] CLIA [id number] [address] [place] [address] [place] Bilirubin.conjugated [Mass/Vol] 0.1 mg/dL Normal <0.3 [facility] Comment on above: Order Comment: Speci men Type: BLOOD SPECIMEN Ordering Facility: [facility] Address: [address] [place] [address] Result Comment: Resu lts may be falsely decreased due to interference from hemolysis. Suggest reorder as clinically indicated. Performed By: #### 2 4325-3, 68492-5, 3015-3 #### [facility] CLIA [id number] [address] [place] [address] [place] Protein [Mass/Vol] 7.5 g/dL Normal 6.3-8.0 [facility] Comment on above: Order Comment: Speci men Type: BLOOD SPECIMEN Ordering Facility: [facility] Address: [address] [place] [address] Performed By: #### 2 4325-3, 43686-4, 3016-3 #### [facility] CLIA [id number] [address] [place] [address] [place] Lipid 1996 panelon 5 Cholesterol [Mass/Vol] 137 mg/dL Normal <200 [facility] Comment on above: Order Comment: Speci men Type: BLOOD SPECIMEN Ordering Facility: [facility] Address: [address] [place] [address] Result Comment: <200 mg/dL, Desirable 200-239 mg/dL, Borderline high >239 mg/dL, High Performed By: #### 2 4325-3, 09020-8, 3016-3 #### [facility] CLIA [id number] [address] [place], [place] [address] [place] Cholesterol in HDL [Mass/Vol] 33 mg/dL Low >39 [facility] Comment on above: Order Comment: Speci men Type: BLOOD SPECIMEN Ordering Facility: [facility] Address: [address] [place] [address] Result Comment: 40-5 9 mg/dL, Acceptable >59 mg/dL, High: Negative risk factor for coronary heart disease <40 mg/dL, Low: Positive risk factor for coronary heart disease Performed By: #### 2 4325-3, 05499-5, 3016-3 #### [facility] CLIA [id number] [address] [place] [address] [place] Cholesterol in LDL [Mass/Vol] 80 mg/dL Normal <100 [facility] Comment on above: Order Comment: Speci men Type: BLOOD SPECIMEN Ordering Facility: [facility] Address: [address] [place] [address] Result Comment: <100 mg/dL, Optimal 100-129 mg/dL, Near optimal/above optimal 130-159 mg/dL, Borderline high 160-189 mg/dL, High >189 mg/dL, Very high Secondary prevention optimal LDL Cholesterol levels are recommended to be <70 mg/dL LDL cholesterol is calculated using the Way-NIH equation. Performed By: #### 2 4325-3, 76675-0, 3015-3 #### [facility] CLIA [id number] [address] [facility] [address] [place] Cholesterol in LDL/Cholesterol in HDL [Mass ratio] 2.42 {ratio} Normal <2.54 [facility] Comment on above: Order Comment: Specrobbi men Type: BLOOD SPECIMEN Ordering Facility: [facility] Address: [address] [place] [address] Result Comment: Refe rence: 1. National Cholesterol Education Program ATP III Guideline At-A-Glance Quick Desk Reference: National Heart, Lung, and Blood [place]. National Institutes of Health. 2001: NIH Publication No. 01-3305. 2. An International Atherosclerosis Society position paper: global recommendations for the management of dyslipidemia: executive summary, Atherosclerosis. 2014: 232(2):410-413. Performed By: #### 2 4325-3, 79968-8, 3015-3 #### [facility] CLIA [id number] [facility] [place] [id number] [place] Cholesterol in VLDL [Mass/Vol] 21 mg/dL Normal <30 [facility] Comment on above: Order Comment: Patrick men Type: BLOOD SPECIMEN Ordering Facility: [facility] Address: [address] [place], [place] [address] Performed By: #### 2 4325-3, 86180-1, 3015-3 #### [facility] CLIA [id number] [address] [facility] [address] [address] [place] Cholesterol non HDL [Mass/Vol] 104 mg/dL Normal <130 [facility] Comment on above: Order Comment: Speci men Type: BLOOD SPECIMEN Ordering Facility: [facility] Address: [address] [place] [address] Result Comment: <130 mg/dL, Optimal 130-159 mg/dL, Near optimal/above optimal 160-189 mg/dL, Borderline high 190-219 mg/dL, High >219 mg/dL, Very high Secondary prevention optimal non HDL Cholesterol levels are recommended to be <100 mg/dL Performed By: #### 2 4325-3, 41719-8, 3016-3 #### [facility] CLIA [id number] [address] [place] [address] [place] Cholesterol.total/Chol esterol in HDL [Mass ratio] 4.15 {ratio} Normal <5.10 [facility] Comment on above: Order Comment: Speci men Type: BLOOD SPECIMEN Ordering Facility: [facility] Address: [address] [place] [address] Performed By: #### 2 4325-3, 05255-3, 3015-3 #### [facility] CLIA [id number] [address] [place] [address] [place] FASTING TIME 12 hrs Normal [facility] Comment on above: Order Comment: Speci men Type: BLOOD SPECIMEN Ordering Facility: [facility] Address: [address] [place] [address] Performed By: #### 2 4325-3, 90659-3, 6-3 #### [facility] CLIA [id number] [address] [place] [address] [place] Triglyceride [Mass/Vol] 133 mg/dL Normal <150 [facility] Comment on above: Order Comment: Speci men Type: BLOOD SPECIMEN Ordering Facility: [facility] Address: [address] [place] [address] Result Comment: <150 mg/dL, Normal 150-199 mg/dL, Borderline high 200-499 mg/dL, High >499 mg/dL, Very high Performed By: #### 2 4325-3, 34235-9, 3016-3 #### [facility] CLIA [id number] [facility] [place] [id number] [place] TSH SerPl-aCncon 06-21-2025 TSH Qn 2.640 m[IU]/L Normal 0.270-4.20 0 [facility] Comment on above: Order Comment: Speci men Type: BLOOD SPECIMEN Ordering Facility: [facility] Address: [address] [place] [address] Performed By: #### 2 4325-3, 55439-4, 3016-3 #### [facility] CLIA [id number] [address] [place] [address] [place] Progress Noteson 05-13-2025 [employer] Aut[employer] Interface Message Text Patient was identified by name and date of . Pharmacy updated Vital signs taken Patient in exam room ready for MD. Princess Myles., MTA Normal [employer] Authentication Interface Message Text CC: anterior neck mass HPI: Jai Green is a 54 year old male referred from [facility] for anterior neck mass. Patient says he's had it for years, and it swells around once per year, usually in January-February. He's had a couple scans this year with it swollen. Right now he says it's not really there. Patient knows where it's at, and can feel it when he pushes on that spot, but it's not bothering him. Medical History[1] Surgical History[2] Allergies Patient has no allergy information on record. Medications No current outpatient medications on file. No current facility-administered medications for this visit. Family History The patient's family history is not on file.. Social History: Social History[3] Review of Systems - as per HPI, otherwise the balance of 10 systems is negative Physical Exam Pulse 64, temperature 97.4 ???F (36.3 ???C), temperature source Temporal, weight (!) 312 lb 11.2 oz (141.8 kg), SpO2 94%. General apperance: WN/WD adult in no apparent distress, sitting in a chair Ability to communicate: normal voice without hoarseness Head and Face: Atraumatic, normocephalic; skin with no masses or lesions; sinuses nontender to palpation, face symmetric with normal movement Salivary Glands: No enlargement or tenderness of parotid or submandibular glands Ears:External ears are intact without any lesions or masses. Eyes: EOM Intact, sclera anicteric, no conjunctival injection. Nose: External nose midlin Oral Cavity: Lips, gums, gingiva are normal; the floor of mouth and tongue are soft w/out lesions. Tongue protrusion is midline and non-tethered. Normal. Oropharynx: the soft palate, tonsils, and lateral pharyngeal campbell are without lesions or masses Neck: Very thick. Prominent submental area. Hard to feel a discrete mass on palpation today. CV: No clubbing/cyanosis/edema in hands Respiration: Breathing comfortably, no stridor or stertor Neuro: A AND Ox3, Cranial nerves 2-12 intact and symmetric. Normal affect. In-office ultrasound Right at the hyoid, there could be a bit of a cyst that's hard to see with the stubble from his mosqueda interfering with imaging. CT Soft Tissue w/ Contrast 05/03/[address] Neck w/o Contrast 03/12/2025 IMPRESSION: No evidence of mass lesion or lymphadenopathy within the neck. Assessment/Recommendations : Jai Green is a 54 year old male who presents today for: 1. Possible thyroglossal duct cyst - Told him I will request the scans. - If it shows a thyroglossal duct cyst, we can plan to remove it. - If I can't clearly see it, we may need to hold off until his neck swells again, then try to address at that point. Electronically signed by Kenyon carpenter for and in the presence of Dr. Germaine Kong on 05/13/2025 at 11:11 AM ----- All medical record entries made by the scribe were at my direction and personally dictated by me. I have reviewed and edited the record and confirm that the note above accurately reflects all work, treatment, procedures, and medical decision making performed by me. Germaine Kong MD ----- Cc: Nic Sunshine MD [1] No past medical history on file. [2] No past surgical history on file. [3] Social History Socioeconomic History Marital status: Unknown Normal [employer] Absolute lymphocyte countOrd ered By: Danishdomi Li on 05-03-2025 Lymphocytes Auto (Unsp spec) [#/Vol] 1.77 10*3/uL 0.83-4.51 [facility] Absolute neutrophil countOrd ered By: [facility] on 05-03-2025 Neutrophils (Bld) [#/Vol] 7.6 10*3/uL 2.0-7.7 [facility] Anion gap in Serum or Plasma Ordered By: Danish Li on 05-03-2025 Anion gap [Moles/Vol] 9 mmol/L 5-15 [facility] Automated lymphocyte count a s percentage of total leukocytesOrdered By: Danish Li on 05-03-2025 Lymphocytes/100 WBC Auto (Unsp spec) 16.8 % Low 19-41 [facility] BUN/creatinine ratioOrdered By: Danish Li on 05-03-2025 Urea nitrogen/Creatinine [Mass ratio] 19.0 mg/mg 10-20 [facility] Basic Metabolic Profile (BMP )on 05-03-2025 BUN/CRE 19.0 RATIO Normal 10-20 [facility] Comment on above: Performed By: #### L 500.2500, L100.0100 #### [facility] [address] [place], [address] Calcium [Mass/Vol] 9.7 mg/dL Normal 7.6-11.0 [facility] Comment on above: Performed By: #### L 500.2500, L100.0100 #### [facility] [address] [place], [place], [address] Chloride [Moles/Vol] 100 mmol/L Normal 98-108 [facility] Comment on above: Performed By: #### L 500.2500, L100.0100 #### [facility] [address] [place], [address] CO2 [Moles/Vol] 30.5 mmol/L Normal 21.0-32.0 [facility] Comment on above: Performed By: #### L 500.2500, L100.0100 #### [facility] [address] [place], [address] Creatinine [Mass/Vol] 0.93 mg/dL Normal 0.70-1.20 [facility] Comment on above: Performed By: #### L 500.2500, L100.0100 #### [facility] [address] [place], [address] ECRCL 137.47 ml/min Normal 50-250 [facility] Comment on above: Performed By: #### L 500.2500, L100.0100 #### [facility] [address] [place], [address] GAP 9 Normal 5-15 [facility] Comment on above: Performed By: #### L 500.2500, L100.0100 #### [facility] [address] [place], [address] GFR/1.73 sq M.predicted among non-blacks MDRD (S/P/Bld) [Vol rate/Area] 99 mL/min/{1.73_m2} Normal >60 [facility] Comment on above: Result Comment: mL/m in/1.73m2 CKD-EPI Creatinine Equation (2020) Performed By: #### L 500.2500, L100.0100 #### [facility] [address] [place], [address] Glucose [Mass/Vol] 208 mg/dL High 70-99 [facility] Comment on above: Performed By: #### L 500.2500, L100.0100 #### [facility] [address] [place], [address] Potassium [Moles/Vol] 4.3 mmol/L Normal 3.3-5.1 [facility] Comment on above: Performed By: #### L 500.2500, L100.0100 #### [facility] [address] [place], [address] Sodium [Moles/Vol] 140 mmol/L Normal 133-145 [facility] Comment on above: Performed By: #### L 500.2500, L100.0100 #### [facility] [address] [place], [address] Urea nitrogen [Mass/Vol] 18 mg/dL Normal 4-19 [facility] Comment on above: Performed By: #### L 500.2500, L100.0100 #### [facility] [address] [place], [address] Basophil percentageOrdered B y: Danish Li on 05-03-2025 Basophils/100 WBC (Bld) 0.3 % 0-1 [facility] CBC W/Diff, Automatedon Absolute Lymph 1.77 X10 3/uL Normal 0.83-4.51 [facility] Comment on above: Performed By: #### L 500.2500, L100.0100 #### [facility] [address] [place], [address] Absolute Neut 7.6 X10 3/uL Normal 2.0-7.7 [facility] Comment on above: Performed By: #### L 500.2500, L100.0100 #### [facility] [address] [place], [address] Basophils/100 WBC (Bld) 0.3 % Normal 0-1 [facility] Comment on above: Performed By: #### L 500.2500, L100.0100 #### [facility] [address] [place], [address] Eosinophils/100 WBC (Bld) 2.9 % Normal 0-5 [facility] Comment on above: Performed By: #### L 500.2500, L100.0100 #### [facility] [address] [place], [address] Erythrocyte distribution width (RBC) [Ratio] 13.6 % Normal 11.6-14.6 [facility] Comment on above: Performed By: #### L 500.2500, L100.0100 #### [facility] [address] [place], [address] Hematocrit (Bld) [Volume fraction] 49.3 % Normal 40-54 [facility] Comment on above: Performed By: #### L 500.2500, L100.0100 #### [facility] [address] [place], [address] Hemoglobin (Bld) [Mass/Vol] 15.8 g/dL Normal 13.0-16.5 [facility] Comment on above: Performed By: #### L 500.2500, L100.0100 #### [facility] [address] [place], [address] IG% 0.400 Normal 0.0-0.9 [facility] Comment on above: Result Comment: IG% - Immature Granulocytes (promyelocytes, myelocytes and metamyelocytes) > 1% indicates that a LEFT SHIFT is Present. Performed By: #### L 500.2500, L100.0100 #### [facility] [address] [place], [address] Lymphocytes/100 WBC (Bld) 16.8 % Low 19-41 [facility] Comment on above: Performed By: #### L 500.2500, L100.0100 #### [facility] [address] [place], [address] MCH (RBC) [Entitic mass] 30.1 pg Normal 27.0-32.0 [facility] Comment on above: Performed By: #### L 500.2500, L100.0100 #### [facility] [address] [place], [address] MCHC (RBC) [Mass/Vol] 32.0 g/dL Normal 32-36 [facility] Comment on above: Performed By: #### L 500.2500, L100.0100 #### [facility] [address] [place], [address] MCV (RBC) [Entitic vol] 93.9 fL Normal 80-94 [facility] Comment on above: Performed By: #### L 500.2500, L100.0100 #### [facility] [address] [place], [address] Monocytes/100 WBC (Bld) 7.5 % Normal 0-10 [facility] Comment on above: Performed By: #### L 500.2500, L100.0100 #### [facility] [address] [place], [address] Neutrophils/100 WBC (Bld) 72.1 % High 47-70 [facility] Comment on above: Performed By: #### L 500.2500, L100.0100 #### [facility] [address] [place], [address] Nucleated RBC (Bld) [#/Vol] 0 10*3/uL Normal 0-5 [facility] Comment on above: Performed By: #### L 500.2500, L100.0100 #### [facility] [address] [place], [address] Platelet mean volume (Bld) [Entitic vol] 10.8 fL Normal 6.2-12.0 [facility] Comment on above: Performed By: #### L 500.2500, L100.0100 #### [facility] [address] [place], [address] Platelets (Bld) [#/Vol] 182 10*3/uL Normal 150-450 [facility] Comment on above: Performed By: #### L 500.2500, L100.0100 #### [facility] [address] [place], [address] RBC (Bld) [#/Vol] 5.25 10*6/uL Normal 4.6-6.2 [facility] Comment on above: Performed By: #### L 500.2500, L100.0100 #### [facility] [address] [place], [address] RDW SD 47.3 fl High 35.1-43.9 [facility] Comment on above: Performed By: #### L 500.2500, L100.0100 #### [facility] [address] [place], [address] WBC (Bld) [#/Vol] 10.5 10*3/uL Normal 4.4-11.0 [facility] Comment on above: Performed By: #### L 500.2500, L100.0100 #### [facility] [address] [place], [address] Carbon dioxide, total [Moles /volume] in Central venous bloodOrdered By: Danish Li on 05-03-2025 CO2 [Moles/Vol] 30.5 mmol/L 21.0-32.0 [facility] Chloride assayOrdered By: Ug o Li on 05-03-2025 Chloride [Moles/Vol] 100 mmol/L 98-108 [facility] Emergency Department Summary on 05-03-2025 Emergency Department Summary [facility] Medical Records Department [address] [place] [address] Emergency Department Summary 05/03/25 MR#: [id number] Acct: [id number] Name: JAI GREEN Rep #: [id number] : 1970 54 From: Danish Li MD PCP: Dr. Sandy Miller, DO Status:REG ER Location: ED HPI History of Present Illness Chief Complaint: Sore Throat Detail of Chief Complaint: Patient has swelling in the submental area with change in voice. Informant: patient Onset/Context/Timing Onset: Today (Noted upon awakening. Patient had a presentation in November for swelling and workup was unremarkable.) Context: Sudden Onset Timing: Continuous Quality: Swelling submental region Location: Submental region Current Severity: Moderate Maximum Severity: Moderate Worsened by: Nothing Relieved by: Nothing Associated Symptoms Associated Symptoms: Change in voice and difficulty swallowing. Denies dental pain Narrative Narrative: Patient is a 54-year-old male. He has history of hypertension on amlodipine and losartan hydrochlorothiazide combination. He is also on metformin. Patient had a similar presentation November of this year. He was treated for presumed infection. The CAT scan did not reveal any lymphadenopathy or evidence of soft tissue infection. Patient states he got better. Patient has never been on an DAGOBERTO inhibitor. Patient denies fever, chills night sweats. Patient denies dental pain. Patient denies difficulty opening or closing his mouth. Patient denies cardiac or respiratory symptoms. Patient denies rash. Prior similar symptoms: Yes Recent Illness/[facility]: [facility] Medical History Pancreatitis No previous significant [...] / Time No Known Allergies Allergy Verified 05/03/25 10:27 Family History no significant family his Social History household members: significant other Smoking Status: Former smoker substance use type: does not use ROS ROS ED Constitutional Constitutional ED: Denies chills, fever(s), subjective, sweats or weight loss Eyes Eyes: Denies blurry vision or change in vision ENT ENT ED: Reports sore throat and other Details: Patient complains of throat pain but he points to the submental region. He also endorses change in voice and difficulty swallowing. ; Denies ear pain or rhinorrhea Cardiovascular Cardiovascular: Denies chest pain or palpitations Respiratory/Chest Respiratory/Chest: Denies cough, dyspnea or dyspnea on exertion Gastrointestinal Gastrointestinal: Denies abdominal pain, nausea or vomiting Integumentary Denies rash Hematologic/Lymphatic Hematologic/Lymphatic: Reports systems reviewed and no addt'l complaints, except as documented EXAM Physical Exam Const Vital Signs: 05/03/25 10:27 05/03/25 12:26 Temperature 98.1 F 98.6 F Temperature Source Temporal Oral Pulse Rate 77 64 Respiratory Rate 14 18 Blood Pressure 150/89 H 155/94 H Blood Pressure Mean 109 114 Pulse Ox 92 97 Oxygen Delivery Method Room Air Room Air Positive well nourished and well developed Constitutional Narrative: BMI is 43.4. Patient has slightly hoarse voice. He patient has obvious welding between the chin and larynx. General Appearance ED: well developed; Negative for pallor HEENT Reports moist mucous membranes HEENT Narrative: Patient has fillings noted. There is no evidence of a periodontal abscess. There is no fullness of the floor of the mouth. Eyes PERRL and EOMs intact bilaterally General Eye ED: Negative for pale conjunctiva or scleral icterus Neck no lymphadenopathy, supple and no JVD Neck Narrative: Patient has fullness and firmness submental region. No obvious dental pathology doubt this to be Ludewig's angina. Trachea is midline. He has subtle inspiratory stridor. Chest Wall inspection of chest normal and palpation of chest normal Resp normal respiratory effort and clear to auscultation bilaterally Cardio regular rate, regular rhythm, S1 normal heart soun (more content not included)... Normal [facility] Eosinophil percentageOrdered By: Danish Li on 05-03-2025 Eosinophils/100 WBC (Bld) 2.9 % 0-5 [facility] Erythrocyte distribution wid th ratioOrdered By: Danish Li on 05-03-2025 Erythrocyte distribution width (RBC) [Ratio] 13.6 % 11.6-14.6 [facility] Erythrocyte distribution wid th standard deviationOrdered By: Danishdomi Li on 05-03-2025 Erythrocyte distribution width (RBC) [Ratio] 47.3 fl High 35.1-43.9 [facility] Glomerular filtration rate ( GFR) estimation/1.73 sq m using serum, plasma, or whole bOrdered By: Danishdomi Li on 05-03-2025 GFR/1.73 sq M.predicted among non-blacks MDRD (S/P/Bld) [Vol rate/Area] 99 mL/min/{1.73_m2} >60 [facility] Comment on above: mL/min/1.73m2 CKD-EP I Creatinine Equation (2020) Hematocrit Auto (Bld) [Volum e fraction]Ordered By: Danishdomi Li on 05-03-2025 Hematocrit (Bld) [Volume fraction] 49.3 % 40-54 [facility] Hemoglobin measurementOrdere d By: Danishdomi Li on 05-03-2025 Hemoglobin (Bld) [Mass/Vol] 15.8 g/dL 13.0-16.5 [facility] Immature granulocytes/100 WB C Auto (Bld)Ordered By: Danishdomi Li on 05-03-2025 Immature granulocytes/100 WBC (Bld) 0.400 % 0.0-0.9 [facility] Comment on above: IG% - Immature Granu locytes (promyelocytes, myelocytes and metamyelocytes) > 1% indicates that a LEFT SHIFT is Present. MCV (mean corpuscular volume ) determinationOrdered By: Danishdomi Li on 05-03-2025 MCV (RBC) [Entitic vol] 93.9 fL 80-94 [facility] Mean corpuscular hemoglobin (MCH) determinationOrdered By: Danishdomi Li 05-03-2025 MCH (RBC) [Entitic mass] 30.1 pg 27.0-32.0 [facility] Mean corpuscular hemoglobin concentration (MCHC) determinationOrdered By: Danishdomi Li on 05-03-2025 MCHC (RBC) [Mass/Vol] 32.0 g/dL 32-36 [facility] Mean platelet volume determi nationOrdered By: Danish Li on 05-03-2025 Platelet mean volume (Bld) [Entitic vol] 10.8 fL 6.2-12.0 [facility] Monocyte percentageOrdered B y: Danish Li on 05-03-2025 Monocytes/100 WBC (Bld) 7.5 % 0-10 [facility] Neutrophil percentageOrdered By: Danish Li on 05-03-2025 Neutrophils/100 WBC (Bld) 72.1 % High 47-70 [facility] Nucleated red blood cell per centageOrdered By: Danish Li on 05-03-2025 Nucleated RBC/100 WBC (Bld) [Ratio] 0 % 0-5 [facility] Platelet countOrdered By: Jaye Li on 05-03-2025 Platelets (Bld) [#/Vol] 182 10*3/uL 150-450 [facility] Potassium measurement (mass/ volume)Ordered By: Danish Li on 05-03-2025 Potassium (Unsp spec) [Mass/Vol] 4.3 mmol/L 3.3-5.1 [facility] RBC Auto (Bld) [#/Vol]Ordere d By: Danish Li on 05-03-2025 RBC (Bld) [#/Vol] 5.25 10*6/uL 4.6-6.2 [facility] Serum creatinine measurement (mass/volume)Ordered By: Danish Li on 05-03-2025 Creatinine [Mass/Vol] 0.93 mg/dL 0.70-1.20 [facility] Serum glucose measurement (m ass/volume)Ordered By: Danish Li on 05-03-2025 Glucose [Mass/Vol] 208 mg/dL High 70-99 [facility] Serum or plasma calcium violet urement (mass/volume)Ordered By: Danish Li on 05-03-2025 Calcium [Mass/Vol] 9.7 mg/dL 7.6-11.0 [facility] Serum or plasma urea nitroge n measurement (mass/volume)Ordered By: Dainsh Li on 05-03-2025 Urea nitrogen [Mass/Vol] 18 mg/dL 4-19 [facility] Sodium levelOrdered By: Danish Li on 05-03-2025 Sodium [Moles/Vol] 140 mmol/L 133-145 [facility] Soft Tissue Neck WITH Contra ston 05-03-2025 Soft Tissue Neck WITH Contrast [facility] Imaging Services [address] [place], [place] [address] Soft Tissue Neck WITH Contrast MR#: [id number] Acct: [id number] Name: JAI GREEN Rep #: [id number] : 1970 M 54 From: Tito De La O MD PCP: Dr. Sandy Miller, Status: REG ER Study: Soft Tissue Neck WITH Contrast Date of Exam: 0 05/03/25 Exam# [id number] Ordering Dr: Danish Li MD PROCEDURE: SOFT TISSUE NECK WITH CONTRAST 05/03/2025 REASON FOR EXAM: SUBMENTAL SWELLING AND MILD DYSPHONIA AND DYSPHAGI TECHNIQUE: CT of the soft tissues of the neck from the orbits to the upper mediastinum with intravenous contrast. Contiguous axial scans of 2.5 mm slice thicknesses. Sagittal and coronal reconstruction images were obtained. One or more dose reduction techniques were used (e.g., automated exposure control, adjustment of mA and/or kv according to patient size, use of iterative reconstruction technique). CONTRAST: Isovue-300. VOLUME: 100 ML RADIATION DOSE SUMMARY: DLP: 716.99 mGycm COMPARISON: CT neck dated 12/21/2024. FINDINGS: Airway: Unremarkable. Salivary glands: Unremarkable. Lymph nodes: No lymphadenopathy. Thyroid: No suspicious nodules or other abnormalities. Nasopharynx: Unremarkable. Oropharynx: A heterogeneously enhancing area is seen at the right tongue base on axial image 58 measuring 2.4 x 1.9 cm. Hypopharynx: Unremarkable. Retropharyngeal space: Unremarkable. Perivertebral space: Unremarkable. Vasculature: Unremarkable. No aneurysms. Orbits: Normal Paranasal sinuses and mastoids: Stable mucoperiosteal retention cyst, left maxillary sinus. Lung apices: Unremarkable. Upper mediastinum: Unremarkable. Bones: Mild multilevel spondylosis Other: Artifact from dental enhancements. CT/Soft Tissue Neck WITH Contrast IMPRESSION: 1. A heterogeneously enhancing lesion is demonstrated at the right tongue base. Direct visualization via endoscopy is recommended. Can not exclude carcinoma. 2. Stable mucoperiosteal retention cyst, left maxillary sinus. 3. Other nonacute findings detailed above. Reading Location: [place] [address] CC: Dr. Sandy Miller DO; Dr. Danish Li MD Food Service Helper: Signed Normal [facility] White blood cell (WBC) count Ordered By: Danish Li on 05-03-2025 WBC (Bld) [#/Vol] 10.5 10*3/uL 4.4-11.0 [facility] CNOVon 03-14-2025 CNOV Office Visit (FPDOYL ) -- JAI GREEN ([id number]) 1970 M Date Time Provider Department 03/14/25 11:15 AM RAMÓN MILLER FPDOYL During your visit today, we recorded the following information about you: Temperature Pulse Blood pressure Weight 97.5 degrees 73/minute 136/84 142.4 kg Height 1.829 m Ramón Miller DO 03/26/2025 8:50 PM Signed [facility] Etnacruz Miller DO [address] [place] [address] Date of Evaluation: 03/14/2025 Patient Name: Jai Green : 1970 Chief Complaint: Patient presents with: Results: CT results and echo results. Patient requesting skin biopsy results Follow Up: 3 week recheck Suture Removal: Placed 02/28/25 Subjective Mr. Green is a 54 year old male who presents with the following complaint(s): The history is provided by the patient. No operations lead was used. Suture Removal Chronicity: follow up [...] Blood-Glucose Sensor (FREESTYLE MALENA 3 PLUS SENSOR) benrabe Use to check blood sugar 3 times [...] Vitals and (more content not included)... Normal [facility] Karen 03-14-2025 MAKENNA Telephone (FPDOYL) -- JAI GREEN ([id number]) 1970 M Date Time Provider Department 03/14/25 RAMÓN MILLER During your visit today, we recorded the following information about you: Tony Paris 03/14/2025 3:52 PM Signed Cpap submitted Via [employer]. Allergies As of Date: 03/14/2025 (No Known [...] Status:Closed by TONY PARIS on 03/14/[address] [facility] [address] NECK SOFT TISSUE WO IVCON on 03-12-2025 CT NECK SOFT TISSUE WO IVCON * * *Final Report* * * DATE OF EXAM: Mar 12 2025 11:07AM [facility] 0509 - CT NECK SOFT [...] mass lesion or lymphadenopathy within the neck. Food Service Helper: YOSELYN Transcribe Date/Time: Mar 12 2025 12:18P Dictated by : DECLAN BROWN MD This examination was interpreted and the report reviewed and electronically signed by: DECLAN BROWN MD on Mar 12 2025 12:24PM EST [id number] Normal [facility] CT Neck WO contraston 2024 IMPRESSION: No evidence of mass lesion or lymphadenopathy within the neck. Food Service Helper: PSCB Transcribe Date/Time: Mar 12 2025 12:18P Dictated by : DECLAN BROWN MD This examination was interpreted and the report reviewed and electronically signed by: DECLAN BROWN MD on Mar 12 2025 12:24PM [facility] DIVISION OF RADIOLOGY * * *Final Report* * * DATE OF EXAM: Mar 12 2025 11:07AM [facility] 0509 - CT NECK SOFT [...] lesion or infection. DIVISION OF RADIOLOGY Provider, [facility] - 03/12/2025 * * *Final Report* * * DATE OF EXAM: Mar 12 2025 11:07AM [facility] 0509 - CT NECK SOFT [...] mass lesion or lymphadenopathy within the neck. Food Service Helper: PSCB Transcribe Date/Time: Mar 12 2025 12:18P Dictated by : DECLAN BROWN MD This examination was interpreted and the report reviewed and electronically signed by: DECLAN BROWN MD on Mar 12 2025 12:24PM EST [facility] Radiology Study observation (narrative) [facility] CT Neck WO contrastOrdered B y: [facility] Provider on 03-12-2025 [facility] ECHOon 03-12-2025 Echocardiography Echocardiography Rep ort: Transthoracic Echo [facility] Date of service: 03/12/2025 11:15:42 AM Ordering physician: RAMÓN MILLER Indication: Shortness of Breath Symptom(s): Edema Technologist: Bhakti Gilbert [facility] Interpreting physician: Randall Monsivais MD [...] * * Final * * * CC Screen Fix [facility] : [id number] Normal [facility] CNPSuly 03-08-2025 CNPN Telephone (FPDOYL) -- JAI GREEN ([id number]) 1970 M Date Time Provider Department 03/08/25 RAMÓN MILLER FPDOYL During your visit today, we recorded the following information about you: Fletcher Johnson LPN 03/08/2025 2:43 PM Signed JAI GREEN (German: [id number]) Ozempic (0.25 or 0.5 MG/DOSE) 2MG/3ML pen-injectors Form [employer] Electronic PA Form (2016 [facility] Created 41 minutes ago Sent to Plan 31 minutes ago Plan Response 31 minutes ago Submit Clinical Questions 4 minutes ago Determination Wait for Determination Please [facility] to return a determination. Fletcher Johnson LPN 03/08/2025 4:12 PM Signed JAI GREEN (German: [id number]) Ozempic (0.25 or 0.5 MG/DOSE) 2MG/3ML pen-injectors Form [employer] Electronic PA Form (2016 [facility]) Created 2 hours ago Sent to Plan 2 hours ago Plan Response 2 hours ago Submit Clinical Questions 2 hours ago Determination Favorable 1 hour ago Message from Plan Your PA request has been approved. Additional information will be provided in the approval communication. (Message 1142). Authorization Expiration Date: March 07, 2028. Allergies As of Date: 03/08/2025 (No Known Allergies) Date Reviewed: 02/28/2025 Reviewed by: Declan Pack RN - Fully Assessed Reason for Visit: [...] Encounter Status:Closed by FLETCHER JOHNSON on 03/08/25 Normal [facility] Pathology biopsy report Preet (Tiss)Ordered By: Cici Will on 03-07-2025 Case Report Surgical Pathology R eport Case: [id number] Authorizing Provider: Rula Aquino MD Collected: 02/28/2025 11:59 AM Ordering Location: Dermatology Received: 02/28/2025 12:48 PM Pathologist: Cici Will MD Specimens: A) - Skin, Neck - Posterior B) - Skin, Left Medial Thigh [facility] Work Phone: Diagnosis Comment b8vgdUZlRHBrvONsBEZn NVxhbn DsUHQapYQaN3IixvocXQhyIY4t LU7amXxbhELfvCJdBSPqRoRuh6 ttq008cPMkr6gyAKPPnebghWn1 vFkjV77dm5L8KywwF54cqBUgIM V5ORAaTSZgpQUhSXOjTDZ0IJUp gCNfI7qfDPQcVK5fnohiLWbpFV pgPATwpTH6JOVboXJfG6HtVQTm PTwmKFSyczg0TrKaLz7egFRrhL cyMFxwYXJkXHBsYWluXGZzMjAg XU4nLRfwwG1dp1qnVhFfLYE5oE 2javMhvZ99XLDxIqWmj7K5s8Jx brMpdB8dF23btGHurEVeaCUfkF YcNLUakf7trY9my5Fyrif5lS9f JAAxaOGbM4ZixDV0mvSttDLzu4 FibGUgZXBpZGVybWlzLiBXaXRo lP4zbFvwTZGayf6gdvdbjNjpjn CqgCGdAIUfbNjwlPbaOQVkp9Eu r9YnROIfvTCyKCxpkCYphREgl1 F5fFTrYPl4jHPtc6dkf3Olv8X8 dGljIGluZmlsdHJhdGUuIEVvc2 pbb0TwqBzyVVRfKMXty1BxxbIj ZGlseSBpZGVudGlmaWVkLiBUaG VyZSBpcyBkaWZmdXNlIGludGVy o3ReyNsmhOQdNOXgXVU5tHFsFT 3moLFzR46xmQBaIH5vj6LnRSKi w5fuLVRaQUVcx9CprUDboGXapm PrCDNwo6o1iP3hTefwCQUtuEOz NFUaCQYqeJzgnGZifECwbZL4x6 D8JCAjYCSakXJyBAQsDGQeRBYy dmixt5CdSmmcAXIulYJdDB48AZ RfbKbvYPOiDKZqEZUtWOH4grLl OZPrEOPlk99dhJC4GJ94GMvjlT fvkRurFVTocU4uV1PlDErkqSGo m9Mcy16fz8Meq5TwQHSbWOWiPA G0pSMqHNZyA6TnFOGjKB5cHLSw e3Nwc2KfQUWznZa9ITOahJWuWO QssT7eP5DnDMUgrqEnaLX7eB6l ZWakPEBgE18rlILfEMVxUcvwZP J9 [facility] Work Phone: Disclaimer q5dflLIfIDIie7zlVTEu bGFuZz EwMzNcZnRuYmpcdWMxIHtccnRm AIsidTjgGBQgWQFdn6bfq9bakE LuEMKys6euc5EmbKWtuNTmHAur uKNrpvBhvs94hDR9hB91ND6eNY ElUeL9FSYmmyR1Xdg5CGLtQICx bKZoS956i6msc6nkjaJcqQP1QG PsKXNzP9YjRV3rURQgpFYrJ29o gPKmWGD0RNHlRUDixHXjZDEfFM S0FELysIQtI2mvBZBtBQ8qjeol SWxfUDsyWKCjmYG5YTDonZWgQ9 ZhMJWcQYrbOUXqapx6GuRmBf1c nLLoaJhcUGrpD7nyuZ7bMdT0ZJ kuN0sgeU7vWRp3KMfhMKFlfBN6 ilB3UWDzbLWwJ0UexA5eHOWfXB 3msnf7n7nyFIX0IMuxZMWlHuG4 zrD1GVFcbXXqWQpedNYfrtqfKV ZzJNXwA9MrGRahFi3bBNFvukvi BUD7SJtqoAAvDBYwx6EnCSiAKD bgEXlvY9dnmZ0oylvscNIwDIPj YJFtLCUYJNGri4TjDN0eSRSeyV NrJJH4BCFms6IwR6Yjx2GrdT5w wD3pkKiliH8elGFuePFbqQefkG 7hvW7wVah5g6Lap8IowxZmEADg XKTrhDNnpP1zKU6aSyBvqa8xmV D8SZc1SrXgAUe6LXUgi55wdSIw yJQboQN4UVAgLDVcSZVqjSVmfG odXQZfWnfquDtbIJQnzxYlbw3c euiqpDBrz4JbiC4bkSJ5qHIelX 9dN4mgupWqGV0nRENngP2uTwcw OMOvOzLnnJYGMaTRi09xoXInYR EhhAcizZ9ikGMdjwBpNMJwt4Gy kX2pgFLSKRCeW0jvBOANXOYiuu JhPJ15HOzLWXxzNUFqgNO8rvVB v0OguUEgkTggTMani14jX2ZtZA RokGJJf2MpsIEsxLqoFidnwgrp RJSSRBC6n83iGW1ylWx3CYvtKG 6mhsC1RIrnf9UogDYnOONUllTl GL1oIxm5VQCeFYYbkQNtwIQKDR 86IAIyZZ0omfEsjqKJQCUuqVfv Eu1maGcrBN4wdTl5VTrkGE3oKT RxaW3pLMtca1WckSVmISRawlLu WD3vby0euvCsa37zcIQ4MD69RR zkrBdyE0qFYBWlEYP3hYKfbONu wKSmUW2fXXBzlhWfz9KbFR8fJP KgJYMjCWUcc3SlDN9upPTso2Sx yAP6MZVkIGHnTOAiVNYoWOKwr1 RgGMIzor14LRKsRrmioNlxXQQW WA6cYxGeFFxZQMntNXHhO9PbYM AcAHW9xiBxqjWJILbEXKMiPYW5 OCxrXmdhFOK9ywAgMNCcm4LmYB naO0aiN64ouDnxjXy8mCJ7ODR5 tT8jYmOQbGZbFUX7YLI4udUjqd PtkHTjJZFjk6PkQ2mitrbxMIil yUPqrH3qODMlOSPiUHIiSJMdy6 JoFPVta8LvHfWfzxHvABFrDCLj CXUtiK26YPA2nMnurRtyaeXxAC 0uIXLsdhXeUQHhEEXmyH8aGP2q vNEfwwBvNO5hIF8pJ3L3dOCtRI HmgkArj1bcLDA0TGrxGIXxuTEn dZHvZNEntNqdEZCwma94 [facility] Work Phone: FINAL DIAGNOSIS z6vvbCSfSZLzfQAdSREr NVxhbn QkKWKwgWJyP7WsilaxNWlbPJ6w LR9eiDeraBTovXDuKDBmMfYpu1 xuz792zBLnq5aaMOMNuztkfLx9 gFpcE94ir9G2XfnqE9jqUDCnVT urVJZbLJyxiUCkGLp7AAKgrUBi umPsRgIzEYTiwPFsqQK9RIHvHZ 1irvqtSUpoICqqADYkutD1ACOo gMRzG0LuJTDuPA9ecnjpEGG5FD dsLZAyTOL9JrQlSPXsj6Fcvos9 MjBccGFyZFxwbGFpblxmczIwXG EuVQNUKaUGa4iiBCBpCWWdLX7k lP7jvZRsyN4mUYDamZ6phSNfcX 3ux3l3GCBihdOqRP2fpnACW9gl abDmSS2bJSfdcAybZp4mZCgkM4 ngqidkjcCpFnRkE6mwpj7dvOqw NLPgLDsnq0MhHZDghP0kleZyVW Bhclx+XHWmkcAQLnNDi1nzGXVk EGZ3EO0iYHnouWW9xIrbjYisx4 gxnqSjDjnjhPM2EehiRLCeEDi+ MF2rJpU1aNGzbGjbn26lhQ6ubV NwYJlhTBMcmhvpTPReI4KUE2rY X65uKvL4PtR6JsXjZtToTDGvvy 0= [facility] Work Phone: Gross Description x5oagWZjCPZvzTMJJWCm MDJcYW 2afGyiwNl3kPpvACTbltN0gTTq QAebs0grGCT6k9hcojAXRoqdYU JuII5rBBjsMHNeOO1bRuUlIQHr ZmYxXHBhcGVydzEyMjQwXHBhcG WmoZS6LMCxCL0xrymfSPwoFSih FUXocvS7OEDlfVTaY5YaKXWnDP 0qdjleTAY5FWYVPiebJo2eaJEx bHtcZjFcZmNoYXJzZXQwXGZzd2 ehxrSAfrjrkDs7nW8DKHJkO0Rt SL4Vp3fxHXTgaFExLVJ4OCyui3 zbEEjnRJJ4LLVdPGScRHHhEN1D CxIxNWbpCGI9ZcYjScC9BUe4BS BLLQKbQDK6BIT3XrDbTRs1FAcs XFxuaCBcXHQgMSBcXGZsIFxcbm M5z0uuDFDroDLdKZK6KYkpg4zo DYywQFB2AERuKiRxCVJgPM9HZw ByUKmeQIR4KiYoEcQ4OWk4VEOK IqHhViBnDxjbTCc7ZOzkWEf4ZL l3AMgPBxKrGBU5ZBH6CEaxQCT7 NDIzMyBcXHQgMiBcXHNzIDMgXF dusAFcMJ6qcRysHRSnHB7OFGGx XLqyAJKkKsPyZZ6fK6iavxtvkV JjaFxmczIyXHBhciANClxwYXJk CE7XMPBkSQtpGFd0xpJuHCYkWz FhGEIlR88qq8QFw3NvOA8FIBy2 euAogpJZJbfqejOuHXScP9Bymx VhTXfpKDVtcr3baUarNZRxBMC2 p56oz3KrwCVyyTDtf4AubPCpAJ MqWEV7WZ9exwAtIQOkv9A5LRKq cE2hAMtuxmXsFICttfatgU4xYH 28LHsjLP07KVgbGQ30QTOeRjRS iWMsaL9ppaXoacEdtMOrK5CgOJ 1rLG37ZVgwiHZwkYCbvTQ8SBNi yS0niEtnGJZzh7WftGZwba7sOA BhciANClxwYXIgDQpBSkIgQXBy tCxzUukwQsRqJWP8PzIeNIXJGH PrcxDFGyoaTYAoEMwrk3PdGYui aGoqTCZbPiBkLHzCkf2sunVzqP DkpY9vpLehzaRnJPFvs6FlKNPx KNXsT4kohsEiMA0aIVMduB6jMd wgOTUwMCBFdWNsaWQgQXZlLiwg S3sszlCdCZ4pJOPXVOB2MIK4RA 0RETRdaXMOWYX6MA3vWZsrUDWz P2ImQ8NlktA6FFZgvzCWZqxbZh fagSfgr4AjpDJaVYWcUAjuvSIh GSMlBRZyTUlyAhJBEsYdAsV5ND PmRrgxMoBlSTe2WLngH8YWAYKb CHF2QwB8KXNxXaS5TPj1MINOFj 8eCPXtGnR7GRYfFnZfQEJxRzGw SWe2DODjQVslciPfMDfpIsjlRE axQ68fnEGcQNpwPiNdIWbzoXbv OGCaRNJ3KZ1UWb7vV4qwgmuwmn MaKPHbunUDYacyZHNkJB3VDXBb VEwxMSd4dxScEOSzJsCiPVZrS1 4pk2ZIl3WlRH0JZBz0hyFxvstf RdBjXOWygDLTi0RbPHJCZkrwbg NzBHPaK2MzlgWvGPgkRANtym0q kCoaYHvpEGQsf8BwqCXvcKCuCs N7LI9coIqynxMmaI3zSWE3kjvh q9kbBTLpeGHmVYI8LMYwoD5deV Xiu9BacK0qMREgIUO1AYKqCwQ3 PCOjBHIguX6pWYQuYMKkeLKxoJ 6qwwGktnFswUEnS2RhTK1xLZFr aOYjoQpls7ZrsHv3oLNnKGobZQ Smgu7kqMwuPWrjSE1iGCNfAYZt RVL2MG9vOIUxtxIATzhbESNmJH r5atLbzpFKBegkHJTvTBgYPpPH fGEgzRE1IQQrETD2FPO4WXJeMJ 6eqDSmEC3ULQUqwqEKLgkda3Ir NYS4OF8scvV4uI3qZWWcfyJjcl 6sCIXedNUOtQQ3RWuvstTmH3ho gkdzZHG9WZEnAJC7A2mtWGMOod PjPRHPsWI3FGwtxtVrXY4MYSD1 NUx3SGTwrcIUXlvtSMKnDDAqpM RMg0FbOUUWFgabmIjvPuRsvNTz RsA8UUDgrXBuQMK9NL1dqEfwMC HkS6MxZ4EwwdP4UJClvaXHKaqs LZUtPW8LLQMmVYjwRZ8UaJ== [facility] Work Phone: Performing Lab g1lkhOUaXOXxeSXuNRJx Mlxhbn UkGRGjiMBiH6OjtzyjTNoiJW6d UP7ipLdllKBniOHnMJSiVyWfo0 yej706rYYtb1euTSMHmlcegKj4 vCofX74ec5K1MvlhA24tkHHpCH M4BHOuRPIldWLwIVOmUNS2ZFFv aRGcB5lxLJWwRI7chnykBJgvIP ogAFYrwEC4CPSsiJTkB3FiFZVs KPmnSDBurrw5DqLnSn3xeEQciZ ebFPksZ3wesX0sLsH3FEsbV0oi hD0uBWx9ZKkaJICatYL7bbB5VT XxwTFxS2BbeP4oKPOqIN6afsk2 p6gjRVU6QVgaMLYwRbX7crP4HD BccGFyZFxwbGFpblxmczIwIERp RWgfi4R6cMPdgD12TRUooeY2FL Kvr93nyIXxGu9mtBBwHTS8OkXE pOS0QIoiukJyY5woedluJE3dwY 6oV5ShpKOeTFokp3LkfRIhZQyi Sp6qLXIyorpnOMy8NLJkILQrvG pyEBQ4BC93GZciEBWpzrHAEhTs KHDvMUQjvCIlEXEEZBH1DVE3AY GxVMTMABQuEMJ5IJK5OHOiVWTv dIVkILhmXJBuFMSyu5LasK4reR QEqHPbN2ZucxiaF0NohKSgDPya mySlM6hyWZAGALdtLUH6 [facility] Work Phone: [facility] Work Phone: Karen 03-06-2025 MAKENNA Telephone (FPDOYL) -- JAI GREEN ([id number]) 1970 M Date Time Provider Department 03/06/25 RAMÓN MILLER During your visit today, we recorded the following information about you: Shari eMier LPN 03/06/2025 2:21 PM Signed Prior auth submitted through [employer] for Ozempic. Insurance denied Ozempic. Paper copy to be scanned into chart or document attached to medication in medication tab. Please advise. Ramón Miller DO 03/08/2025 11:05 AM Signed DonFletcher Mccall LPN 03/08/2025 2:54 PM Signed Prior authorization [...] sugar 3 times daily. - Blood-Glucose Sensor (XplentySTYLE MALENA 3 PLUS SENSOR) bernabe Use to [...] Encounter Status:Closed by FLETCHER JOHNSON on 03/08/25 [facility] Keisha 03-04-2025 [facility] Office Visit (FPDOYL ) -- JAI GREEN ([id number]) 1970 M Date Time Provider Department 03/04/25 2:15 PM RAMÓN MILLER During your visit today, we recorded the following information about you: Pulse Blood pressure Weight Height 67/minute 138/88 141.5 kg 1.829 m Ramón Miller DO 03/06/2025 9:28 PM Signed [facility] Etna Ramón Miller DO [address] [place] [address] Date of Evaluation: 03/04/2025 Patient Name: Jai [...] mL) pe (more content not included)... Normal [facility] CNOVon 02-28-2025 CNOV Office Visit (DERMAV ) -- JAI GREEN ([id number]) 1970 M Date Time Provider Department 02/28/25 11:40 AM RULA AQUINO During your visit today, we recorded the following information about you: Referring Provider: SELF [200] Allergies As of Date: 02/28/2025 (No Known Allergies) Date Reviewed: 02/28/2025 Reviewed by: Declan Pack RN - Fully Assessed Reason for Visit: Biopsy [...] [I10] Diabetes (HCC) [E11.9] Encounter Status:Closed by RULA MEYER on 02/28/25 [facility] CN Office Visit (DERMAV ) -- JAI GREEN ([id number]) 1970 M Date Time Provider Department 02/28/25 9:40 AM RULA AQUINO DERMKOJO During your visit today, we recorded the [...] Tobacco use: No Alcohol use: No 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 Normal [facility] Pathology biopsy report Preet (Tiss)on 02-28-2025 AP DISCLAIMER Normal [facility] Comment on above: Order Comment: Speci men Type: TISSUE SPECIMEN Ordering Facility: [facility] Address: [address] [place] [address] Result Comment: Aminah iyer Developed Test (LDT) Disclaimer: Performance characteristics of immunohistochemical, immunofluorescent, and chromogenic in-situ hybridization tests have been determined by the performing laboratory within [facility]'s [facility] Pathology and Laboratory Medicine Department ([facility], [facility], [facility], [facility], [facility], [facility], or [facility]) in a manner consistent with CLIA [...] appropriately. Performed By: #### 6 6121-5 #### [facility] CLIA [id number] [address] [place], [place] [address] [place] [address] [place] CASE REPORT Normal [facility] Comment on above: Order Comment: Speci men Type: TISSUE SPECIMEN Ordering Facility: [facility] Address: [address] [place] [address] Result Comment: Surg ical Pathology Report Case: [id number] Authorizing Provider: Rula Aquino MD Collected: 02/28/2025 11:59 AM Ordering Location: Dermatology Received: 02/28/2025 12:48 PM Pathologist: Cici Will MD Specimens: A) - Skin, Neck - Posterior B) - Skin, Left Medial Thigh Performed By: #### 6 6121-5 #### [facility] CLIA [id number] [address] [place] [address] DIAGNOSIS COMMENT Normal [facility] Comment on above: Order Comment: Speci thea Type: TISSUE SPECIMEN Ordering Facility: [facility] Address: [address] [place] [address] Result Comment: A. H istologic sections show [...] recommended. Performed By: #### 6 6121-5 #### [facility] CLIA [id number] [address] [place] [address] FINAL DIAGNOSIS Normal [facility] Comment on above: Order Comment: Speci thea Type: TISSUE SPECIMEN Ordering Facility: [facility] Address: [address] [place] [address] Result Comment: A. S kin, neck - posterior, punch biopsy: - Scleredema with focal changes of scleromyxedema, see comment. B. Skin, left medial thigh, shave biopsy: - Nevus lipomatosus. WFB/LORENA/mm/03/04/2025 at 1451 EDT Performed By: #### 6 6121-5 #### [facility] CLIA [id number] [address] [place] [address] FINAL PERFORMING LAB Normal [facility] Comment on above: Order Comment: Speci men Type: TISSUE SPECIMEN Ordering Facility: [facility] Address: [address] [place] [address] Result Comment: Diag nostic interpretation performed at: [facility], [address] [place] [address], [place] [address] CLIA# [id number] Shoe Maker: German Martin MD Performed By: #### 6 6121-5 #### [facility] CLIA [id number] [address] [place] [address] OF [place] GROSS DESCRIPTION A. Skin Normal [facility] Comment on above: Order Comment: Speci men Type: TISSUE SPECIMEN Ordering Facility: [facility] Address: [address] [place] [address] Result Comment: Rece ived in formalin are two segments of rajan and rajan-red, soft skin aggregating to 0.7 x 0.4 x 0.4 cm. Specimen is bisected. Totally submitted in two cassettes. AJB February 28, 2025 8:12 PM Gross examination performed at [facility], [address] [place] [address] B. Skin Received in formalin is a segment of rajan-pink pink, wrinkled rubbery skin measuring 1.8 x 1.3 x 0.9 cm. The specimen is bisected. Totally submitted in formalin in one cassette. SS March 01, 2025 2:54 AM Gross examination performed at [facility], [address] [place] [address] Performed By: #### 6 6121-5 #### [facility] CLIA [id number] [address] [place] [address] [place] SKIN / NAIL BIOPSYon [...] instructions given Dressing type: bandage and petrolatum [facility] Karen 02-27-2025 CARLOS Telephone (CARLYL) -- JAI GREEN ([id number]) 1970 M Date Time Provider Department 02/27/25 RAMÓN MILELR During your visit today, we recorded the following information about you: Shari Meier LPN 03/01/2025 9:53 AM Addendum Called and spoke with patient to office an appointment for today and patient declined. States he has to work until 4pm. States he is still taking his medication. Patient will keep his appointment for Tuesday03/04/25. FYI. See [employer] message below. Allergies As of Date: 02/27/2025 [...] Encounter Status:Closed by CARLOS DONAHUE on 02/28/25 [facility] CBC W Auto Differential pane l (Bld)on 02-23-2025 Basophils (Bld) [#/Vol] 0.05 10*3/uL [facility] Basophils/100 WBC (Bld) 0.5 % [facility] Differential cell count method Nom (Bld) Auto [facility] Eosinophils (Bld) [#/Vol] 0.34 10*3/uL [facility] Eosinophils/100 WBC (Bld) 3.3 % [facility] Erythrocyte distribution width (RBC) [Ratio] 14.2 % 11.5 - 15.0 % [facility] Hematocrit (Bld) [Volume fraction] 51.6 % High 39.0 - 51.0 % [facility] Hemoglobin (Bld) [Mass/Vol] 16.7 g/dL 13.0 - 17.0 g/dL [facility] Immature granulocytes (Bld) [#/Vol] 0.05 10*3/[facility] Immature granulocytes/100 WBC (Bld) 0.5 % [facility] Interpretation and review of laboratory results Abnormal [facility] Lymphocytes (Bld) [#/Vol] 2.9 10*3/uL [facility] Lymphocytes/100 WBC (Bld) 28.4 % [facility] MCH (RBC) [Entitic mass] 30.2 pg 26.0 - 34.0 pg [facility] MCHC (RBC) [Mass/Vol] 32.4 g/dL 30.5 - 36.0 g/dL [facility] MCV (RBC) [Entitic vol] 93.3 fL 80.0 - 100.0 fL [facility] Monocytes (Bld) [#/Vol] 0.76 10*3/uL NINF [facility] Monocytes/100 WBC (Bld) 7.4 % [facility] Neutrophils (Bld) [#/Vol] 6.11 10*3/uL [facility] Neutrophils/100 WBC (Bld) 59.9 % [facility] Nucleated RBC (Bld) [#/Vol] NINF [facility] Nucleated RBC/100 WBC (Bld) [Ratio] 0 % /100 WBC [facility] Platelet mean volume (Bld) [Entitic vol] 11.2 fL 9.0 - 12.7 fL [facility] Platelets (Bld) [#/Vol] 200 10*3/uL [facility] RBC (Bld) [#/Vol] 5.53 10*6/uL 4.20 - 6.00 m/uL [facility] WBC (Bld) [#/Vol] 10.21 10*3/uL [facility] Basophils (Bld) [#/Vol] 0.05 10*3/uL Normal <0.11 [facility] Comment on above: Order Comment: Speci men Type: BLOOD SPECIMEN Ordering Facility: [facility] Address: [address] [place] [address] Performed By: #### 5 7021-8 #### [facility] CLIA [id number] [address] [place] [address] [place] Performed By: #### 2 4331-1, 3016-3, 83509-7 #### [facility] CLIA [id number] [address] [place] [address] [place] Basophils/100 WBC (Bld) 0.5 % Normal [facility] Comment on above: Order Comment: Speci men Type: BLOOD SPECIMEN Ordering Facility: [facility] Address: [address] [place] [address] Performed By: #### 5 7021-8 #### [facility] CLIA [id number] [address] OF [place] Performed By: #### 2 4331-1, 3, #### [facility] CLIA [id number] [address] [place] [address] [place] Differential cell count method Nom (Bld) Auto Normal [facility] Comment on above: Order Comment: Speci men Type: BLOOD SPECIMEN Ordering Facility: [facility] Address: [address] [place] [address] Performed By: #### 5 7021-8 #### [facility] CLIA [id number] [address] [place] [address] OF [place] Performed By: #### 2 4331-1, 3016-01, #### [facility] CLIA [id number] [address] [place] [address] [place] Eosinophils (Bld) [#/Vol] 0.34 10*3/uL Normal <0.46 [facility] Comment on above: Order Comment: Speci men Type: BLOOD SPECIMEN Ordering Facility: [facility] Address: [address] [place] [address] Performed By: #### 5 7021-8 #### [facility] CLIA [id number] [address] [place] [address] [place] Performed By: #### 2 4331-1, 3016-01, #### [facility] CLIA [id number] [address] [place] [address] [place] Eosinophils/100 WBC (Bld) 3.3 % Normal [facility] Comment on above: Order Comment: Speci men Type: BLOOD SPECIMEN Ordering Facility: [facility] Address: [address] [place] [address] Performed By: #### 5 7021-8 #### [facility] CLIA [id number] [address] Performed By: #### 2 4331-1, 3015-3, #### [facility] CLIA [id number] [address] [place] [address] [place] Erythrocyte distribution width (RBC) [Ratio] 14.2 % Normal 11.5-15.0 [facility] Comment on above: Order Comment: Speci men Type: BLOOD SPECIMEN Ordering Facility: [facility] Address: [address] [place] [address] Performed By: #### 5 7021-8 #### [facility] CLIA [id number] [address] [place] [address] Performed By: #### 2 4331-1, 3, #### [facility] CLIA [id number] [address] [place] [address] [place] Hematocrit (Bld) [Volume fraction] 51.6 % High 39.0-51.0 [facility] Comment on above: Order Comment: Speci men Type: BLOOD SPECIMEN Ordering Facility: [facility] Address: [address] [place] [address] Performed By: #### 5 7021-8 #### [facility] CLIA [id number] [address] [place] [address] Performed By: #### 2 4331-1, 3015-3, #### [facility] CLIA [id number] [address] [place], [place] [address] [place] Hemoglobin (Bld) [Mass/Vol] 16.7 g/dL Normal 13.0-17.0 [facility] Comment on above: Order Comment: Speci men Type: BLOOD SPECIMEN Ordering Facility: [facility] Address: [address] [place] [address] Performed By: #### 5 7021-8 #### [facility] CLIA [id number] [address] [place] [id number] [facility] OF [place] Performed By: #### 2 4331-1, 3, #### [facility] CLIA [id number] [address] [address] [place] Immature granulocytes (Bld) [#/Vol] 0.05 10*3/uL Normal <0.10 [facility] Comment on above: Order Comment: Speci men Type: BLOOD SPECIMEN Ordering Facility: [facility] Address: [address] [place] [address] Performed By: #### 5 7021-8 #### [facility] CLIA [id number] [address] [place] [place] [address] [place] Performed By: #### 2 4331-1, 3016-01, #### [facility] CLIA [id number] [address] [place], [place] [address] [place] Immature granulocytes/100 WBC (Bld) 0.5 % Normal [facility] Comment on above: Order Comment: Speci men Type: BLOOD SPECIMEN Ordering Facility: [facility] Address: [address] [place] [address] Performed By: #### 5 7021-8 #### [facility] CLIA [id number] [address] [place], [place] [address] [facility] OF [place] Performed By: #### 2 4331-1, 3, #### [facility] CLIA [id number] [address] [place], [place] [address] [place] Lymphocytes (Bld) [#/Vol] 2.90 10*3/uL Normal 1.00-4.00 [facility] Comment on above: Order Comment: Speci men Type: BLOOD SPECIMEN Ordering Facility: [facility] Address: [address] [place], [place] [address] Performed By: #### 5 7021-8 #### [facility] CLIA [id number] [address] [place] [address] Performed By: #### 2 4331-1, 3015-3, 04402-4 #### [facility] CLIA [id number] [address] [place], [place] [address] [place] Lymphocytes/100 WBC (Bld) 28.4 % Normal [facility] Comment on above: Order Comment: Speci men Type: BLOOD SPECIMEN Ordering Facility: [facility] Address: [address] [place] [address] Performed By: #### 5 7021-8 #### [facility] CLIA [id number] [address] [place] [address] Performed By: #### 2 4331-1, 3, #### [facility] CLIA [id number] [address] [place], [place] [address] [place] MCH (RBC) [Entitic mass] 30.2 pg Normal 26.0-34.0 [facility] Comment on above: Order Comment: Speci men Type: BLOOD SPECIMEN Ordering Facility: [facility] Address: [address] [place] [address] Performed By: #### 5 7021-8 #### [facility] CLIA [id number] [address] [place], [place] [address] [facility] [place] Performed By: #### 2 4331-1, 3015-3, 08549-5 #### [facility] CLIA [id number] [address] [place], [place] [address] [place] MCHC (RBC) [Mass/Vol] 32.4 g/dL Normal 30.5-36.0 [facility] Comment on above: Order Comment: Speci men Type: BLOOD SPECIMEN Ordering Facility: [facility] Address: [address] [place] [address] Performed By: #### 5 7021-8 #### [facility] CLIA [id number] [address] [place] [address] Performed By: #### 2 4331-1, 3015-3, #### [facility] CLIA [id number] [address] [place] [address] [facility] MCV (RBC) [Entitic vol] 93.3 fL Normal 80.0-100.0 [facility] Comment on above: Order Comment: Speci men Type: BLOOD SPECIMEN Ordering Facility: [facility] Address: [address] [place] [address] Performed By: #### 5 7021-8 #### [facility] CLIA [id number] [address] [place] [address] Performed By: #### 2 4331-1, 3016-01, #### [facility] CLIA [id number] [address] [place] [address] [place] Monocytes (Bld) [#/Vol] 0.76 10*3/uL Normal <0.87 [facility] Comment on above: Order Comment: Speci men Type: BLOOD SPECIMEN Ordering Facility: [facility] Address: [address] [place] [address] Performed By: #### 5 7021-8 #### [facility] CLIA [id number] [address] [place], [place] [address] [facility] Performed By: #### 2 4331-1, 3015-3, #### [facility] CLIA [id number] [address] [place], [place] [address] [place] Monocytes/100 WBC (Bld) 7.4 % Normal [facility] Comment on above: Order Comment: Speci men Type: BLOOD SPECIMEN Ordering Facility: [facility] Address: [address] [place] [address] Performed By: #### 5 7021-8 #### [facility] CLIA [id number] [address] [place], [place] [address] [facility] [place] Performed By: #### 2 4331-1, 3015-3, 08443-0 #### [facility] CLIA [id number] [address] [place], [place] [address] [place] Neutrophils (Bld) [#/Vol] 6.11 10*3/uL Normal 1.45-7.50 [facility] Comment on above: Order Comment: Speci men Type: BLOOD SPECIMEN Ordering Facility: [facility] Address: [address] [place] [address] Performed By: #### 5 7021-8 #### [facility] CLIA [id number] [address] [place] [address] [place] Performed By: #### 2 4331-1, 3016-01, #### [facility] CLIA [id number] [address] [place] [address] [place] Neutrophils/100 WBC (Bld) 59.9 % Normal [facility] Comment on above: Order Comment: Speci men Type: BLOOD SPECIMEN Ordering Facility: [facility] Address: [address] [place] [address] Performed By: #### 5 7021-8 #### [facility] CLIA [id number] [address] [place], [place] [address] [facility] Performed By: #### 2 4331-1, 3015-3, #### [facility] CLIA [id number] [address] [place] [address] [place] Nucleated RBC (Bld) [#/Vol] 10*3/uL Normal <0.01 [facility] Comment on above: Order Comment: Speci men Type: BLOOD SPECIMEN Ordering Facility: [facility] Address: [address] [place] [address] Performed By: #### 5 7021-8 #### [facility] CLIA [id number] [address] [place], [place] [address] [place] Performed By: #### 2 4331-1, 3015-3, 86732-8 #### [facility] CLIA [id number] [email or web address] [address] [place] Nucleated RBC/100 WBC (Bld) [Ratio] 0.0 /100 WBC Normal [facility] Comment on above: Order Comment: Speci men Type: BLOOD SPECIMEN Ordering Facility: [facility] Address: [address] [place] [address] Performed By: #### 5 7021-8 #### [facility] CLIA [id number] [address] [place], [place] [address] [facility] Performed By: #### 2 4331-1, 3, #### [facility] CLIA [id number] [address] [place], [place] [address] [place] Platelet mean volume (Bld) [Entitic vol] 11.2 fL Normal 9.0-12.7 [facility] Comment on above: Order Comment: Speci men Type: BLOOD SPECIMEN Ordering Facility: [facility] Address: [address] [place], [place] [address] Performed By: #### 5 7021-8 #### [facility] CLIA [id number] [address] [place], [place] [address] [facility] Performed By: #### 2 4331-1, 3015-3, #### [facility] CLIA [id number] [address] [place] [address] [place] Platelets (Bld) [#/Vol] 200 10*3/uL Normal 150-400 [facility] Comment on above: Order Comment: Speci men Type: BLOOD SPECIMEN Ordering Facility: [facility] Address: [address] [place] [address] Performed By: #### 5 7021-8 #### [facility] CLIA [id number] [address] [place] [address] [place] Performed By: #### 2 4331-1, 3016-3, 43796-3 #### [facility] CLIA [id number] [address] [place] [address] [place] RBC (Bld) [#/Vol] 5.53 10*6/uL Normal 4.20-6.00 [facility] Comment on above: Order Comment: Speci men Type: BLOOD SPECIMEN Ordering Facility: [facility] Address: [address] [place] [address] Performed By: #### 5 7021-8 #### [facility] CLIA [id number] [address] [place] [address] [place] Performed By: #### 2 4331-1, 3015-3, 39934-0 #### [facility] CLIA [id number] [address] [place] [address] [place] WBC (Bld) [#/Vol] 10.21 10*3/uL Normal 3.70-11.00 [facility] Comment on above: Order Comment: Speci men Type: BLOOD SPECIMEN Ordering Facility: [facility] Address: [address] [place] [address] Performed By: #### 5 7021-8 #### [facility] CLIA [id number] [address] [place] [address] [place] Performed By: #### 2 4331-1, 6-3, 91187-9 #### [facility] CLIA [id number] [address] [place] [address] [place] Comprehensive metabolic 2000 panelon 02-23-2025 Albumin [Mass/Vol] 4.3 g/dL 3.9 - 4.9 g/dL [facility] ALP [Catalytic activity/Vol] 76 U/L 38 - 113 U/L [facility] ALT [Catalytic activity/Vol] 32 U/L 10 - 54 U/L [facility] Anion gap [Moles/Vol] 10 mmol/L 8 - 15 mmol/L [facility] AST [Catalytic activity/Vol] 21 U/L 14 - 40 U/L [facility] Bilirubin [Mass/Vol] 0.3 mg/dL 0.2 - 1 .3 mg/dL [facility] Calcium [Mass/Vol] 9.9 mg/dL 8.5 - 10. 2 mg/dL [facility] Chloride [Moles/Vol] 102 mmol/L 98 - 10 7 mmol/L [facility] CO2 [Moles/Vol] 31 mmol/L High 22 - 30 mmol/L [facility] Creatinine [Mass/Vol] 0.85 mg/dL 0.73 - 1.22 mg/dL [facility] GFR/1.73 sq M.predicted among non-blacks MDRD (S/P/Bld) [Vol rate/Area] 105 mL/min/{1.73_m2} - PINF [facility] Comment on above: Estimated Glomerular Filtration [...] 171 mg/dL High 74 - 99 mg/dL [facility] Comment on above: The [place] Diabete s Association (ADA) provides guidance for [...] Standards of Medical Care in Diabetes 2016, [place] Diabetes Association. Diabetes Care. 2016.39(Suppl 1). Potassium [Moles/Vol] 4.6 mmol/L 3.7 - 5.1 mmol/L [facility] Protein [Mass/Vol] 7.2 g/dL 6.3 - 8.0 g/dL [facility] Sodium [Moles/Vol] 143 mmol/L 136 - 144 mmol/L [facility] Urea nitrogen [Mass/Vol] 14 mg/dL 9 - 24 mg/dL [facility] Albumin [Mass/Vol] 4.3 g/dL Normal 3.9-4.9 [facility] Comment on above: Order Comment: Patrick sidhu Type: BLOOD SPECIMEN Ordering Facility: [facility] Address: [address] [place] [address] Performed By: #### 3 016-3, 53507-4, #### [facility] CLIA [id number] [address] [place] [address] [place] Performed By: #### 2 4331-1, 3016-01, #### [facility] CLIA [id number] [address] [place] [address] [place] ALP [Catalytic activity/Vol] 76 U/L Normal 38-113 [facility] Comment on above: Order Comment: Mirlandei men Type: BLOOD SPECIMEN Ordering Facility: [facility] Address: [address] [place] [address] Performed By: #### 3 016-3, 40542-8, 77202-2 #### [facility] CLIA [id number] [address] [place] [address] [place] Performed By: #### 2 4331-1, 3, 88447-5 #### [facility] CLIA [id number] [address] [place], [place] [address] [place] ALT [Catalytic activity/Vol] 32 U/L Normal 10-54 [facility] Comment on above: Order Comment: Speci men Type: BLOOD SPECIMEN Ordering Facility: [facility] Address: [address] [place] [address] Performed By: #### 3 016-3, 67959-7, 84479-6 #### [facility] CLIA [id number] [address] [place], [place] [address] [place] Performed By: #### 2 4331-1, 3016-3, 92365-2 #### [facility] CLIA [id number] [address] [place] [address] [place] Anion gap [Moles/Vol] 10 mmol/L Normal 8-15 [facility] Comment on above: Order Comment: Speci men Type: BLOOD SPECIMEN Ordering Facility: [facility] Address: [address] [place] [address] Performed By: #### 3 016-3, 04657-0, 89370-4 #### [facility] CLIA [id number] [address] [place] [address] [place] Performed By: #### 2 4331-1, 3016-3, 17178-0 #### [facility] CLIA [id number] [address] [place] [address] [place] AST [Catalytic activity/Vol] 21 U/L Normal 14-40 [facility] Comment on above: Order Comment: Speci men Type: BLOOD SPECIMEN Ordering Facility: [facility] Address: [address] [place] [address] Performed By: #### 3 016-3, 66925-4, 45747-4 #### [facility] CLIA [id number] [address] [place] [address] [place] Performed By: #### 2 4331-1, 3015-3, #### [facility] CLIA [id number] [address] [place] [address] [place] Bilirubin [Mass/Vol] 0.3 mg/dL Normal 0.2-1.3 [facility] Comment on above: Order Comment: Speci men Type: BLOOD SPECIMEN Ordering Facility: [facility] Address: [address] [place] [address] Performed By: #### 3 016-3, 85090-4, #### [facility] CLIA [id number] [address] [place] [address] [place] Performed By: #### 2 4331-1, 3016-01, #### [facility] CLIA [id number] [address] [place] [address] [place] Calcium [Mass/Vol] 9.9 mg/dL Normal 8.5-10.2 [facility] Comment on above: Order Comment: Speci men Type: BLOOD SPECIMEN Ordering Facility: [facility] Address: [address] [place] [address] Performed By: #### 3 016-3, , 84412-2 #### [facility] CLIA [id number] [address] [place], [place] [address] [facility] [place] Performed By: #### 2 4331-1, 3016-01, #### [facility] CLIA [id number] [address] [place], [place] [address] [place] Chloride [Moles/Vol] 102 mmol/L Normal 98-107 [facility] Comment on above: Order Comment: Speci men Type: BLOOD SPECIMEN Ordering Facility: [facility] Address: [address] [place], [place] [address] Performed By: #### 3 016-3, 29861-6, #### [facility] CLIA [id number] [address] [address] [place] Performed By: #### 2 4331-1, 3015-3, #### [facility] CLIA [id number] [address] [place] [address] [place] CO2 [Moles/Vol] 31 mmol/L High 22-30 [facility] Comment on above: Order Comment: Speci men Type: BLOOD SPECIMEN Ordering Facility: [facility] Address: [address] [place], [place] [address] Performed By: #### 3 016-3, , #### [facility] CLIA [id number] [address] [address] [facility] [place] Performed By: #### 2 4331-1, 3016-01, #### [facility] CLIA [id number] [address] [address] [place] Creatinine [Mass/Vol] 0.85 mg/dL Normal 0.73-1.22 [facility] Comment on above: Order Comment: Speci men Type: BLOOD SPECIMEN Ordering Facility: [facility] Address: [address] [place], [place] [address] Performed By: #### 3 016-3, , #### [facility] CLIA [id number] [address] [address] [place] Performed By: #### 2 4331-1, 3, #### [facility] CLIA [id number] [address] [address] [place] Creatinine and Glomerular filtration rate.predicted panel (S/P/Bld) 105 mL/min/1.73m??? Normal >=60 [facility] Comment on above: Order Comment: Speci men Type: BLOOD SPECIMEN Ordering Facility: [facility] Address: [address] [place] [address] Result Comment: Capri mated Glomerular Filtration Rate [...] actual GFR. Performed By: #### 3 016-3, 68952-1, 10201-1 #### [facility] CLIA [id number] [address] [place] [address] Performed By: #### 2 4331-1, 3016-3, 02836-6 #### [facility] CLIA [id number] [address] [place] [address] [place] Glucose [Mass/Vol] 171 mg/dL High 74-99 [facility] Comment on above: Order Comment: Patrick sidhu Type: BLOOD SPECIMEN Ordering Facility: [facility] Address: [address] [place] [address] Result Comment: The [place] Diabetes Association (ADA) provides guidance for cutoff [...] Standards of Medical Care in Diabetes 2016, [place] Diabetes Association. Diabetes Care. 2016.39(Suppl 1). Performed By: #### 3 016-3, 20913-2, 73421-0 #### [facility] CLIA [id number] [address] [place] [address] [place] Performed By: #### 2 4331-1, 301-3, 18193-0 #### [facility] CLIA [id number] [address] [place] [address] [place] Potassium [Moles/Vol] 4.6 mmol/L Normal 3.7-5.1 [facility] Comment on above: Order Comment: Speci men Type: BLOOD SPECIMEN Ordering Facility: [facility] Address: [address] [place] [address] Performed By: #### 3 016-3, 02766-0, 19652-5 #### [facility] CLIA [id number] [address] [place] [address] Performed By: #### 2 4331-1, 3, 96001-7 #### [facility] CLIA [id number] [address] [place] [address] [place] Protein [Mass/Vol] 7.2 g/dL Normal 6.3-8.0 [facility] Comment on above: Order Comment: Speci men Type: BLOOD SPECIMEN Ordering Facility: [facility] Address: [address] [place] [address] Performed By: #### 3 016-3, 19638-1, 78583-2 #### [facility] CLIA [id number] [address] [place] [address] [place] Performed By: #### 2 4331-1, 3015-3, 92856-2 #### [facility] CLIA [id number] [address] [place] [address] [place] Sodium [Moles/Vol] 143 mmol/L Normal 136-144 [facility] Comment on above: Order Comment: Speci men Type: BLOOD SPECIMEN Ordering Facility: [facility] Address: [address] [place] [address] Performed By: #### 3 016-3, 44978-9, 53787-0 #### [facility] CLIA [id number] [address] Performed By: #### 2 4331-1, 3, #### [facility] CLIA [id number] [address] [place] [address] [place] Urea nitrogen [Mass/Vol] 14 mg/dL Normal 9-24 [facility] Comment on above: Order Comment: Speci men Type: BLOOD SPECIMEN Ordering Facility: [facility] Address: [address] [place] [address] Performed By: #### 3 016-3, 87899-1, #### [facility] CLIA [id number] [address] [place] [address] Performed By: #### 2 4331-1, 3016-01, #### [facility] CLIA [id number] [address] [place] [address] [place] HbA1c (Bld)on 02-23-2025 Average glucose Estimated from glycated hemoglobin (Bld) [Mass/Vol] 186 mg/dL [facility] Comment on above: eAG: (Estimated aver age glucose) is a calculated value from HgbA1c and is sales solutions representative of the average blood glucose level in the last 2-3 month period. HbA1c (Bld) [Mass fraction] 8.1 % High 4.3 - 5.6 % [facility] Comment on above: [place] Diabetes As sociation guidelines indicate that patients with HgbA1c in the range 5.7-6.4% are at increased risk for development of diabetes, and intervention by lifestyle modification may be beneficial. HgbA1c greater or equal to 6.5% is considered diagnostic of diabetes. Interpretation and review of laboratory results Abnormal [facility] Average glucose Estimated from glycated hemoglobin (Bld) [Mass/Vol] 186 mg/dL Normal [facility] Comment on above: Order Comment: Speci men Type: BLOOD SPECIMEN Ordering Facility: [facility] Address: [address] [place] [address] Result Comment: eAG: (Estimated average glucose) is a calculated value from HgbA1c and is sales solutions representative of the average blood glucose level in the last 2-3 month period. Performed By: #### 5 5454-3 #### [facility] CLIA [id number] [address] [place] [address] Performed By: #### 2 4331-1, 6-3, 26003-4 #### [facility] CLIA [id number] [address] [place] [address] [place] HbA1c (Bld) [Mass fraction] 8.1 % High 4.3-5.6 [facility] Comment on above: Order Comment: Speci men Type: BLOOD SPECIMEN Ordering Facility: [facility] Address: [address] [place] [address] Result Comment: [place] Diabetes Association guidelines indicate that patients with HgbA1c in the range 5.7-6.4% are at increased risk for development of diabetes, and intervention by lifestyle modification may be beneficial. HgbA1c greater or equal to 6.5% is considered diagnostic of diabetes. Performed By: #### 5 5454-3 #### [facility] CLIA [id number] [address] [place] [address] [place] Performed By: #### 2 4331-1, 3015-3, 72777-0 #### [facility] CLIA [id number] [address] [place] [address] [place] Lipid 1996 panelon 5 Cholesterol [Mass/Vol] 241 mg/dL High NINF - 200 mg/dL [facility] Comment on above: <200 mg/dL, Desirabl e 200-239 mg/dL, Borderline high >239 mg/dL, High Cholesterol in HDL [Mass/Vol] 37 mg/dL Low 39 - PINF mg/dL [facility] Comment on above: 40-59 mg/dL, Accepta ble >59 mg/dL, High: Negative risk factor for coronary heart disease <40 mg/dL, Low: Positive risk factor for coronary heart disease Cholesterol in LDL [Mass/Vol] 171 mg/dL High NINF - 100 mg/dL [facility] Comment on above: <100 mg/dL, Optimal 100-129 mg/dL, Near optimal/above optimal 130-159 mg/dL, Borderline high 160-189 mg/dL, High >189 mg/dL, Very high Secondary prevention optimal LDL Cholesterol levels are recommended to be < 70 mg/dL Cholesterol in LDL/Cholesterol in HDL [Mass ratio] 4.62 {ratio} High NINF - 2.54 [facility] Comment on above: Reference: 1. National Cholesterol Education Program ATP III Guideline At-A-Glance Quick Desk Reference: National Heart, Lung, and Blood [place]. National Institutes of Health. 2001: NIH Publication No. 01-3305. 2. An International Atherosclerosis Society position paper: global recommendations for the management of dyslipidemia: executive summary, Atherosclerosis. 2014: 232(2):410-413. Cholesterol in VLDL [Mass/Vol] 33 mg/dL High NINF - 30 mg/dL [facility] Cholesterol non HDL [Mass/Vol] 204 mg/dL High NINF - 130 mg/dL [facility] Comment on above: <130 mg/dL, Optimal 130-159 mg/dL, Near optimal/above optimal 160-189 mg/dL, Borderline high 190-219 mg/dL, High >219 mg/dL, Very high Secondary prevention optimal non HDL Cholesterol levels are recommended to be <100 mg/dL Cholesterol.total/Chol esterol in HDL [Mass ratio] 6.51 {ratio} High NINF - 5.10 [facility] Fasting Time 12 hrs [facility] Triglyceride [Mass/Vol] 165 mg/dL High NINF - 150 mg/dL [facility] Comment on above: <150 mg/dL, Normal 150-199 mg/dL, Borderline high 200-499 mg/dL, High >499 mg/dL, Very high Cholesterol [Mass/Vol] 241 mg/dL High <200 [facility] Comment on above: Order Comment: Speci men Type: BLOOD SPECIMEN Ordering Facility: [facility] Address: [address] [place] [address] Result Comment: <200 mg/dL, Desirable 200-239 mg/dL, Borderline high >239 mg/dL, High Performed By: #### 3 016-3, 10829-4, 13442-9 #### [facility] CLIA [id number] [address] [place] [id number] [facility] Performed By: #### 2 4331-1, 3016-3, 34979-2 #### [facility] CLIA [id number] [address] [place] [id number] [facility] [place] Cholesterol in HDL [Mass/Vol] 37 mg/dL Low >39 [facility] Comment on above: Order Comment: Speci men Type: BLOOD SPECIMEN Ordering Facility: [facility] Address: [address] [place] [address] Result Comment: 40-5 9 mg/dL, Acceptable >59 mg/dL, High: Negative risk factor for coronary heart disease <40 mg/dL, Low: Positive risk factor for coronary heart disease Performed By: #### 3 016-3, 81594-7, 12855-2 #### [facility] CLIA [id number] [address] OF [place] Performed By: #### 2 4331-1, 3016-3, 73621-0 #### [facility] CLIA [id number] [address] [place] [id number] [place] Cholesterol in LDL [Mass/Vol] 171 mg/dL High <100 [facility] Comment on above: Order Comment: Speci men Type: BLOOD SPECIMEN Ordering Facility: [facility] Address: [address] [place] [address] Result Comment: <100 mg/dL, Optimal 100-129 mg/dL, Near optimal/above optimal 130-159 mg/dL, Borderline high 160-189 mg/dL, High >189 mg/dL, Very high Secondary prevention optimal LDL Cholesterol levels are recommended to be < 70 mg/dL Performed By: #### 3 016-3, 46675-4, 28641-4 #### [facility] CLIA [id number] [address] [facility] [address] [address] [place] Performed By: #### 2 4331-1, 3015-3, 06330-6 #### [facility] CLIA [id number] [address] [address] [place] Cholesterol in LDL/Cholesterol in HDL [Mass ratio] 4.62 {ratio} High <2.54 [facility] Comment on above: Order Comment: Speci men Type: BLOOD SPECIMEN Ordering Facility: [facility] Address: [address] [place] [address] Result Comment: Refe valery: 1. National Cholesterol Education Program ATP III Guideline At-A-Glance Quick Desk Reference: National Heart, Lung, and Blood [place]. National Institutes of Health. 2001: NIH Publication No. 01-3305. 2. An International Atherosclerosis Society position paper: global recommendations for the management of dyslipidemia: executive summary, Atherosclerosis. 2014: 232(2):410-413. Performed By: #### 3 016-3, 70372-3, 03114-1 #### [facility] CLIA [id number] [address] [place], [place] [address] [place] Performed By: #### 2 4331-1, 3, 55489-6 #### [facility] CLIA [id number] [address] [address] [place] Cholesterol in VLDL [Mass/Vol] 33 mg/dL High <30 [facility] Comment on above: Order Comment: Speci men Type: BLOOD SPECIMEN Ordering Facility: [facility] Address: [address] [place] [address] Performed By: #### 3 016-3, 30262-2, 20395-9 #### [facility] CLIA [id number] [address] [address] [place] Performed By: #### 2 4331-1, 3015-3, 30599-8 #### [facility] CLIA [id number] [address] [place] [address] [place] Cholesterol non HDL [Mass/Vol] 204 mg/dL High <130 [facility] Comment on above: Order Comment: Speci men Type: BLOOD SPECIMEN Ordering Facility: [facility] Address: [address] [place], [place] [address] Result Comment: <130 mg/dL, Optimal 130-159 mg/dL, Near optimal/above optimal 160-189 mg/dL, Borderline high 190-219 mg/dL, High >219 mg/dL, Very high Secondary prevention optimal non HDL Cholesterol levels are recommended to be <100 mg/dL Performed By: #### 3 016-3, 85567-4, 05027-4 #### [facility] CLIA [id number] [address] [place], [place] [address] [place] Performed By: #### 2 4331-1, 3015-3, 24072-5 #### [facility] CLIA [id number] [address] [place], [place] [address] [place] Cholesterol.total/Chol esterol in HDL [Mass ratio] 6.51 {ratio} High <5.10 [facility] Comment on above: Order Comment: Speci men Type: BLOOD SPECIMEN Ordering Facility: [facility] Address: [address] [place], [place] [address] Performed By: #### 3 016-3, 51133-4, 59233-4 #### [facility] CLIA [id number] [address] [place] [address] [place] Performed By: #### 2 4331-1, 3016-3, 35255-8 #### [facility] CLIA [id number] [address] [place] [address] [place] FASTING TIME 12 hrs Normal [facility] Comment on above: Order Comment: Speci men Type: BLOOD SPECIMEN Ordering Facility: [facility] Address: [address] [place], [place] [address] Performed By: #### 3 016-3, 00407-9, 06145-9 #### [facility] CLIA [id number] [address] [place] [address] [address] [facility] [place] Performed By: #### 2 4331-1, 3016-3, 02035-9 #### [facility] CLIA [id number] [address] [place] [address] [place] Triglyceride [Mass/Vol] 165 mg/dL High <150 [facility] Comment on above: Order Comment: Speci men Type: BLOOD SPECIMEN Ordering Facility: [facility] Address: [address] [place] [address] Result Comment: <150 mg/dL, Normal 150-199 mg/dL, Borderline high 200-499 mg/dL, High >499 mg/dL, Very high Performed By: #### 3 016-3, 16209-7, 89572-9 #### [facility] CLIA [id number] [address] [place] [address] [place] Performed By: #### 2 4331-1, 3016-3, 51232-7 #### [facility] CLIA [id number] [address] [place] [address] [place] No Panel Informationon 02-23 Interpretation and review of laboratory results Abnormal [facility] PSA/PROSTATE SPECIFIC ANTIGE N SCREENINGon 02-23-2025 Interpretation and review of laboratory results Normal [facility] Prostate specific Ag [Mass/Vol] 1.48 ng/mL NINF - 2.60 ng/mL [facility] Comment on above: Total PSA test metho dology used is the Electrochemiluminescence Immunoassay by [employer]. Total PSA values by differing methodologies cannot be interchanged. [facility] Prostate specific Ag [Mass/Vol] 1.48 ng/mL Normal <2.60 [facility] Comment on above: Order Comment: Speci men Type: BLOOD SPECIMEN Ordering Facility: [facility] Address: [address] [place] [address] Result Comment: Tota l PSA test methodology used is the Electrochemiluminescence Immunoassay by [employer]. Total PSA values by differing methodologies cannot be interchanged. Performed By: #### P SAS1 #### [facility] CLIA [id number] [address] [place] [address] [facility] [place] Performed By: #### 2 4331-1, 3016-3, 43221-3 #### [facility] CLIA [id number] [address] [place] [address] [place] THYROID STIMULATING HORMONEo n 02-23-2025 TSH Qn 4.94 m[IU]/L High [facility] TSH Qnon 02-23-2025 Interpretation and review of laboratory results Abnormal [facility] System TSH SerPl-aCncon 02-23-2025 TSH Qn 4.940 m[IU]/L High 0.270-4.20 0 [facility] Comment on above: Order Comment: Speci men Type: BLOOD SPECIMEN Ordering Facility: [facility] Address: [address] [place] [address] Performed By: #### 3 016-3, 27842-8, 61170-0 #### [facility] CLIA [id number] [address] [place] [address] [place] Performed By: #### 2 4331-1, 3016-3, 43600-6 #### [facility] CLIA [id number] [address] [place] [address] [place] Urinalysis complete panel (U )on 02-23-2025 Bacteria LM.HPF (Urine sed) [#/Area] Negative Negative /HPF [facility] Bilirubin Ql (U) Negative Negative [facility] Clarity (Unsp spec) Clear Clear [facility] Color (U) Yellow Yellow [facility] Epithelial cells LM.HPF (Urine sed) [#/Area] None Seen /HPF [facility] Glucose Test strip (U) [Mass/Vol] Negative Negative [facility] Hemoglobin Ql (U) Negative Negative [facility] Hyaline casts (Urine sed) [#/Area] 0 /[LPF] 0 /LPF [facility] Interpretation and review of laboratory results Abnormal [facility] Ketones Ql (U) Negative Negative [facility] Leukocyte esterase Test strip Ql (U) Negative Negative [facility] Nitrite Ql (U) Negative Negative [facility] pH (U) 6 [pH] NINF - 8.5 [facility] Protein (U) [Mass/Vol] Trace Abnormal Negative [facility] RBC LM.HPF (Urine sed) [#/Area] 0-2 /HPF 0-2 /HPF [facility] Specific gravity (U) [Rel density] 1.022 1.005 - 1.030 [facility] Urobilinogen Ql (U) 0.2 EU/dL 0.2-1.0 EU/dL [facility] WBC LM.HPF (Urine sed) [#/Area] 0-5 /HPF 0-5 /HPF [facility] This test was malka mario and its performance characteristics determined by [facility]'s [facility] ([facility]). It has not been cleared or approved by the FDA. [facility] is regulated under CLIA as qualified to perform high-complexity testing. This test is used for clinical purposes. It should not be regarded as investigational or for research. [facility] Bacteria LM.HPF (Urine sed) [#/Area] Negative Normal Negative [facility] Comment on above: Order Comment: Speci men Type: URINE SPECIMEN Ordering Facility: [facility] Address: [address] [place] [address] Performed By: #### 2 4356-8 #### [facility] CLIA [id number] [address] [place] [address] [place] Order Comment: Speci men Type: BLOOD SPECIMEN Ordering Facility: [facility] Address: [address] [place] [address] Performed By: #### 2 4331-1, 3016-3, 02845-9 #### [facility] CLIA [id number] [address] [place] [address] [place] Bilirubin Ql (U) Negative Normal Negative [facility] Comment on above: Order Comment: Speci men Type: URINE SPECIMEN Ordering Facility: [facility] Address: [address] [place], [place] [address] Performed By: #### 2 4356-8 #### [facility] CLIA [id number] 95[address] [facility] [address] [place] [address] [place] Order Comment: Speci men Type: BLOOD SPECIMEN Ordering Facility: [facility] Address: [address] [place] [address] Performed By: #### 2 4331-1, 3016-3, 22335-2 #### [facility] CLIA [id number] [address] [place], [place] [address] [place] Clarity (Unsp spec) Clear Normal Clear [facility] Comment on above: Order Comment: Speci men Type: URINE SPECIMEN Ordering Facility: [facility] Address: [address] [place] [address] Performed By: #### 2 4356-8 #### [facility] CLIA [id number] [address] [place], [place] [address] [place] Order Comment: Speci men Type: BLOOD SPECIMEN Ordering Facility: [facility] Address: [address] [place], [place] [address] Performed By: #### 2 4331-1, 3016-3, 98121-1 #### [facility] CLIA [id number] [address] [place] [address] [place] Color (U) Yellow Normal Yellow [facility] Comment on above: Order Comment: Speci men Type: URINE SPECIMEN Ordering Facility: [facility] Address: [address] [place], [place] [address] Performed By: #### 2 4356-8 #### [facility] CLIA [id number] [address] [place] [address] [place] Order Comment: Speci men Type: BLOOD SPECIMEN Ordering Facility: [facility] Address: [address] [place] [address] Performed By: #### 2 4331-1, 3, #### [facility] CLIA [id number] [address] [place] [address] [place] Epithelial cells LM.HPF (Urine sed) [#/Area] None Seen Normal [facility] Comment on above: Order Comment: Speci men Type: URINE SPECIMEN Ordering Facility: [facility] Address: [address] [place], [place] [address] Performed By: #### 2 435-8 #### [facility] CLIA [id number] [address] [place] [address] [address] [facility] Order Comment: Speci men Type: BLOOD SPECIMEN Ordering Facility: [facility] Address: [address] [place], [place] [address] Performed By: #### 2 4331-1, 3016-01, #### [facility] CLIA [id number] [address] [place] [address] [place] Glucose Test strip (U) [Mass/Vol] Negative Normal Negative [facility] Comment on above: Order Comment: Speci men Type: URINE SPECIMEN Ordering Facility: [facility] Address: [address] [place], [place] [address] Performed By: #### 2 4356-8 #### [facility] CLIA [id number] [address] [place] [address] [place] [address] [place] Order Comment: Speci men Type: BLOOD SPECIMEN Ordering Facility: [facility] Address: [address] [place] [address] Performed By: #### 2 4331-1, 3, #### [facility] CLIA [id number] [address] [place] [address] [place] Hemoglobin Ql (U) Negative Normal Negative [facility] Comment on above: Order Comment: Speci men Type: URINE SPECIMEN Ordering Facility: [facility] Address: [address] [place] [address] Performed By: #### 2 4356-8 #### [facility] CLIA [id number] [address] [address] [place] Order Comment: Speci men Type: BLOOD SPECIMEN Ordering Facility: [facility] Address: [address] [place] [address] Performed By: #### 2 4331-1, 3016-3, 63212-9 #### [facility] CLIA [id number] [address] [place], [place] [address] [place] Hyaline casts (Urine sed) [#/Area] 0 /[LPF] Normal 0 /LPF [facility] Comment on above: Order Comment: Speci men Type: URINE SPECIMEN Ordering Facility: [facility] Address: [address] [place] [address] Performed By: #### 2 4356-8 #### [facility] CLIA [id number] [address] [place], [place] [address] [facility] [place] Order Comment: Speci men Type: BLOOD SPECIMEN Ordering Facility: [facility] Address: [address] [place], [place] [address] Performed By: #### 2 4331-1, 3016-3, 02194-7 #### [facility] CLIA [id number] [address] [place] [address] [place] Ketones Ql (U) Negative Normal Negative [facility] Comment on above: Order Comment: Speci men Type: URINE SPECIMEN Ordering Facility: [facility] Address: [address] [place], [place] [address] Performed By: #### 2 4356-8 #### [facility] CLIA [id number] [address] [place] [address] [place] Order Comment: Speci men Type: BLOOD SPECIMEN Ordering Facility: [facility] Address: [address] [place] [address] Performed By: #### 2 4331-1, 3015-3, #### [facility] CLIA [id number] [address] [address] [place] Leukocyte esterase Test strip Ql (U) Negative Normal Negative [facility] Comment on above: Order Comment: Speci men Type: URINE SPECIMEN Ordering Facility: [facility] Address: [address] [place], [place] [address] Performed By: #### 2 4356-8 #### [facility] CLIA [id number] [address] [place], [place] [address] [facility] [place] Order Comment: Speci men Type: BLOOD SPECIMEN Ordering Facility: [facility] Address: [address] [place], [place] [address] Performed By: #### 2 4331-1, 3016-01, #### [facility] CLIA [id number] [address] [place], [place] [address] [place] Nitrite Ql (U) Negative Normal Negative [facility] Comment on above: Order Comment: Speci men Type: URINE SPECIMEN Ordering Facility: [facility] Address: [address] [place], [place] [address] Performed By: #### 2 4356-8 #### [facility] CLIA [id number] [address] [place], [place] [address] [facility] [place] Order Comment: Speci men Type: BLOOD SPECIMEN Ordering Facility: [facility] Address: [address] [place] [address] Performed By: #### 2 4331-1, 3015-3, #### [facility] CLIA [id number] [address] [place] [address] [place] pH (U) 6.0 [pH] Normal <8.5 [facility] Comment on above: Order Comment: Speci men Type: URINE SPECIMEN Ordering Facility: [facility] Address: [address] [place] [address] Performed By: #### 2 4356-8 #### [facility] CLIA [id number] [address] [place] [address] [place] Order Comment: Speci men Type: BLOOD SPECIMEN Ordering Facility: [facility] Address: [address] [place] [address] Performed By: #### 2 4331-1, 3016-3, 78572-7 #### [facility] CLIA [id number] [address] [place] [address] [place] Protein (U) [Mass/Vol] Trace Abnormal Negative [facility] Comment on above: Order Comment: Speci men Type: URINE SPECIMEN Ordering Facility: [facility] Address: [address] [place] [address] Performed By: #### 2 4356-8 #### [facility] CLIA [id number] [address] [place], [place] [address] [place] Order Comment: Speci men Type: BLOOD SPECIMEN Ordering Facility: [facility] Address: [address] [place] [address] Performed By: #### 2 4331-1, 6-3, 12341-8 #### [facility] CLIA [id number] [address] [place], [place] [address] [place] RBC LM.HPF (Urine sed) [#/Area] 0-2 /HPF Normal 0-2 /HPF [facility] Comment on above: Order Comment: Speci men Type: URINE SPECIMEN Ordering Facility: [facility] Address: [address] [place] [address] Performed By: #### 2 4356-8 #### [facility] CLIA [id number] [address] [place] [address] [place] Order Comment: Speci men Type: BLOOD SPECIMEN Ordering Facility: [facility] Address: [address] [place] [address] Performed By: #### 2 4331-1, 3, #### [facility] CLIA [id number] [address] [place] [address] [place] Specific gravity (U) [Rel density] 1.022 Normal 1.005-1.03 0 [facility] Comment on above: Order Comment: Speci men Type: URINE SPECIMEN Ordering Facility: [facility] Address: [address] [place] [address] Performed By: #### 2 4356-8 #### [facility] CLIA [id number] [address] [place] [address] [place] Order Comment: Speci men Type: BLOOD SPECIMEN Ordering Facility: [facility] Address: [address] [place] [address] Performed By: #### 2 4331-1, 3016-01, #### [facility] CLIA [id number] [address] [place] [address] [place] Urobilinogen Ql (U) 0.2 EU/dL Normal 0.2-1.0 EU/dL [facility] Comment on above: Order Comment: Speci men Type: URINE SPECIMEN Ordering Facility: [facility] Address: [address] [place] [address] Performed By: #### 2 4356-8 #### [facility] CLIA [id number] [address] [place], [place] [address] [facility] [place] Order Comment: Speci men Type: BLOOD SPECIMEN Ordering Facility: [facility] Address: [address] [place] [address] Performed By: #### 2 4331-1, 3, #### [facility] CLIA [id number] [address] [place], [place] [address] [place] WBC LM.HPF (Urine sed) [#/Area] 0-5 /HPF Normal 0-5 /HPF [facility] Comment on above: Order Comment: Speci men Type: URINE SPECIMEN Ordering Facility: [facility] Address: [address] [place] [address] Performed By: #### 2 4356-8 #### [facility] CLIA [id number] [address] [place] [place] [address] [place] Order Comment: Speci men Type: BLOOD SPECIMEN Ordering Facility: [facility] Address: [address] [place] [address] Performed By: #### 2 4331-1, 3016-3, 85005-9 #### [facility] CLIA [id number] [address] [place] [place] [address] OF [facility] CNOVon 02-22-2025 CNOV Office Visit (FPDOYL ) -- PETERJAI ([id number]) 1970 M Date Time Provider Department 02/22/25 8:00 AM RAMÓN MILLER FPDOYL During your visit today, we recorded the following information about you: Temperature Pulse Blood pressure Weight 98.7 degrees 75/minute 140/100 144.2 kg Height 1.829 m Ramón Miller DO 03/06/2025 5:45 PM Signed [facility] Etnacruz Miller DO [address] [place] [address] Date of Evaluation: 02/22/2025 Patient Name: Jai [...] history is provided by the patient. No operations lead was used. Hypertension This is a chronic [...] Normal appear (more content not included)... Normal [facility] 12 Lead EKGon 02-18-2025 12 Lead EKG [facility] Cardiovascular Services [address] [place] [address] 12 Lead EKG 02/18/25 1618 MR#: [id number] Acct: [id number] Name: JAI GREEN Rep #: [id number] : 1970 54 From: Adi Talavera MD [...] Normal ECG Confirmed by ADI TALAVERA MD ([id number]), film editor supervisor EDGARDO ODOM ([id number]) on 02/20/2025 8:17:32 AM Referred By: JAYDEN Confirmed By: ADI TALAVERA MD 02/20/25816 Date Adi Talavera MD CC: DATA CODER OPERATORVeronica Triana; Dr. Danish Li MD Signed Normal [facility] Absolute lymphocyte countOrd ered By: Danish Li on 02-18-2025 Lymphocytes Auto (Unsp spec) [#/Vol] 2.03 10*3/uL 0.83-4.51 [facility] Absolute neutrophil countOrd ered By: Danish Li on 02-18-2025 Neutrophils (Bld) [#/Vol] 5.1 10*3/uL 2.0-7.7 [facility] Anion gap in Serum or Plasma Ordered By: Danish Li on 02-18-2025 Anion gap [Moles/Vol] 12 mmol/L 5-15 [facility] Automated lymphocyte count a s percentage of total leukocytesOrdered By: Danish Li on 02-18-2025 Lymphocytes/100 WBC Auto (Unsp spec) 24.3 % 19-41 [facility] BUN/creatinine ratioOrdered By: Danish Li on 02-18-2025 Urea nitrogen/Creatinine [Mass ratio] 23.5 mg/mg High 10-20 [facility] Basophil percentageOrdered B y: Danish Li on 02-18-2025 Basophils/100 WBC (Bld) 0.5 % 0-1 [facility] Bilirubin Test strip Ql (U)O rdered By: Danish Li on 02-18-2025 Bilirubin Ql (U) Negative Negative [facility] Bilirubin, totalOrdered By: Danish Li on 02-18-2025 Bilirubin [Mass/Vol] 0.27 mg/dL 0.00-1.30 [facility] CBC W/Diff, Automatedon 01-27 Absolute Lymph 2.03 X10 3/uL Normal 0.83-4.51 [facility] Comment on above: Performed By: #### L 500.4050, L501.9520, L100.0100 ####[facility] [address] [place], [address] Absolute Neut 5.1 X10 3/uL Normal 2.0-7.7 [facility] Comment on above: Performed By: #### L 500.4050, L501.9520, L100.0100 ####[facility] [address] [place], [address] Basophils/100 WBC (Bld) 0.5 % Normal 0-1 [facility] Comment on above: Performed By: #### L 500.4050, L501.9520, L100.0100 ####[facility] [address] [place], [address] Eosinophils/100 WBC (Bld) 4.4 % Normal 0-5 [facility] Comment on above: Performed By: #### L 500.4050, L501.9520, L100.0100 ####[facility] [address] [place], [address] Erythrocyte distribution width (RBC) [Ratio] 14.0 % Normal 11.6-14.6 [facility] Comment on above: Performed By: #### L 500.4050, L501.9520, L100.0100 ####[facility] [address] [place], [address] Hematocrit (Bld) [Volume fraction] 48.2 % Normal 40-54 [facility] Comment on above: Performed By: #### L 500.4050, L501.9520, L100.0100 ####[facility] [address] [place], [address] Hemoglobin (Bld) [Mass/Vol] 16.3 g/dL Normal 13.0-16.5 [facility] Comment on above: Performed By: #### L 500.4050, L501.9520, L100.0100 ####[facility] [address] [place], [address] IG% 0.500 Normal 0.0-0.9 [facility] Comment on above: Result Comment: IG% - Immature Granulocytes (promyelocytes, myelocytes and metamyelocytes) > 1% indicates that a LEFT SHIFT is Present. Performed By: #### L 500.4050, L501.9520, L100.0100 ####[facility] [address] [place], [address] Lymphocytes/100 WBC (Bld) 24.3 % Normal 19-41 [facility] Comment on above: Performed By: #### L 500.4050, L501.9520, L100.0100 ####[facility] [address] [place], [address] MCH (RBC) [Entitic mass] 30.4 pg Normal 27.0-32.0 [facility] Comment on above: Performed By: #### L 500.4050, L501.9520, L100.0100 ####[facility] [address] [place], [address] MCHC (RBC) [Mass/Vol] 33.8 g/dL Normal 32-36 [facility] Comment on above: Performed By: #### L 500.4050, L501.9520, L100.0100 ####[facility] [address] [place], [address] MCV (RBC) [Entitic vol] 89.8 fL Normal 80-94 [facility] Comment on above: Performed By: #### L 500.4050, L501.9520, L100.0100 ####[facility] [address] [place], [address] Monocytes/100 WBC (Bld) 8.7 % Normal 0-10 [facility] Comment on above: Performed By: #### L 500.4050, L501.9520, L100.0100 ####[facility] [address] [place], [address] Neutrophils/100 WBC (Bld) 61.6 % Normal 47-70 [facility] Comment on above: Performed By: #### L 500.4050, L501.9520, L100.0100 ####[facility] [address] [place], [address] Nucleated RBC (Bld) [#/Vol] 0 10*3/uL Normal 0-5 [facility] Comment on above: Performed By: #### L 500.4050, L501.9520, L100.0100 ####[facility] [address] [place], [address] Platelet mean volume (Bld) [Entitic vol] 10.9 fL Normal 6.2-12.0 [facility] Comment on above: Performed By: #### L 500.4050, L501.9520, L100.0100 ####[facility] [address] [place], [address] Platelets (Bld) [#/Vol] 183 10*3/uL Normal 150-450 [facility] Comment on above: Performed By: #### L 500.4050, L501.9520, L100.0100 ####[facility] [address] [place], [address] RBC (Bld) [#/Vol] 5.37 10*6/uL Normal 4.6-6.2 [facility] Comment on above: Performed By: #### L 500.4050, L501.9520, L100.0100 ####[facility] [address] [place], [address] RDW SD 45.6 fl High 35.1-43.9 [facility] Comment on above: Performed By: #### L 500.4050, L501.9520, L100.0100 ####[facility] [address] [place], [place], [address] WBC (Bld) [#/Vol] 8.4 10*3/uL Normal 4.4-11.0 [facility] Comment on above: Performed By: #### L 500.4050, L501.9520, L100.0100 ####[facility] [address] [place], [place], [address] CNOVon 02-18-2025 CNOV Office Visit (UCWSTR ) -- PETERJAI ([id number]) 1970 M Date Time Provider Department 02/18/25 3:00 PM KINJAL GRIJALVA [facility] During your visit today, we recorded the following information about you: Temperature Pulse Respiration Blood pressure 98.6 degrees 88/minute 18/minute 132/74 Weight 143.6 kg Kinjal Grijalva PA-C 02/18/2025 3:24 PM Signed This note was created using NoteWriter. Subjective Jai Green is a 54 year [...] report immediately to the emergency department at [facility] after [facility]. Edema Review of Systems Objective [...] Status:Closed by KINJAL GRIJALVA on 02/18/25 Normal [facility] Carbon dioxide, total [Moles /volume] in Central venous bloodOrdered By: Danish Li on 02-18-2025 CO2 [Moles/Vol] 26.1 mmol/L 21.0-32.0 [facility] Chloride assayOrdered By: Jaye Li on 02-18-2025 Chloride [Moles/Vol] 100 mmol/L 98-108 [facility] Comprehensive Metabolic Prof ilon 02-18-2025 Albumin [Mass/Vol] 4.3 g/dL Normal 3.5-5.0 [facility] Comment on above: Performed By: #### L 500.8024, L501.9591, L100.0100 ####[facility] [address] [place], [address] Albumin/Globulin [Mass ratio] 1.5 {ratio} Normal 0.9-2.4 [facility] Comment on above: Performed By: #### L 500.4050, L501.9520, L100.0100 ####[facility] [address] [place], [address] ALK PHOS 78 U/L Normal 40-129 [facility] Comment on above: Performed By: #### L 500.4050, L501.9520, L100.0100 ####[facility] [address] [place], [address] ALT [Catalytic activity/Vol] 27 U/L Normal <=46 [facility] Comment on above: Performed By: #### L 500.4050, L501.9520, L100.0100 ####[facility] [address] [place], [address] AST [Catalytic activity/Vol] 25 U/L Normal <=37 [facility] Comment on above: Result Comment: Hemo lysis present, Results??could be affected. ?? Performed By: #### L 500.4050, L501.9520, L100.0100 ####[facility] [address] [place], [address] Bilirubin [Mass/Vol] 0.27 mg/dL Normal 0.00-1.30 [facility] Comment on above: Performed By: #### L 500.4050, L501.9520, L100.0100 ####[facility] [address] [place], [address] BUN/CRE 23.5 RATIO High 10-20 [facility] Comment on above: Performed By: #### L 500.4050, L501.9520, L100.0100 ####[facility] [address] [place], [address] Calcium [Mass/Vol] 9.8 mg/dL Normal 7.6-11.0 [facility] Comment on above: Performed By: #### L 500.4050, L501.9520, L100.0100 ####[facility] [address] [place], [address] Chloride [Moles/Vol] 100 mmol/L Normal 98-108 [facility] Comment on above: Performed By: #### L 500.4050, L501.9520, L100.0100 ####[facility] [address] [place], [address] CO2 [Moles/Vol] 26.1 mmol/L Normal 21.0-32.0 [facility] Comment on above: Performed By: #### L 500.4050, L501.9520, L100.0100 ####[facility] [address] [place], [address] Creatinine [Mass/Vol] 0.75 mg/dL Normal 0.70-1.20 [facility] Comment on above: Performed By: #### L 500.4050, L501.9520, L100.0100 ####[facility] [address] [place], [address] ECRCL 169.78 ml/min Normal 50-250 [facility] Comment on above: Performed By: #### L 500.4050, L501.9520, L100.0100 ####[facility] [address] [place], [address] GAP 12 Normal 5-15 [facility] Comment on above: Performed By: #### L 500.4050, L501.9520, L100.0100 ####[facility] [address] [place], [address] GFR/1.73 sq M.predicted among non-blacks MDRD (S/P/Bld) [Vol rate/Area] 108 mL/min/{1.73_m2} Normal >60 [facility] Comment on above: Result Comment: mL/m in/1.73m2 CKD-EPI Creatinine Equation (2020) Performed By: #### L 500.4050, L501.9520, L100.0100 ####[facility] [address] [place], [address] Globulin (S) [Mass/Vol] 2.9 g/dL Normal 2.2-4.2 [facility] Comment on above: Performed By: #### L 500.4050, L501.9520, L100.0100 ####[facility] [address] [place], [address] Glucose [Mass/Vol] 164 mg/dL High 70-99 [facility] Comment on above: Performed By: #### L 500.4050, L501.9520, L100.0100 ####[facility] [address] [place], [address] Potassium [Moles/Vol] 4.0 mmol/L Normal 3.3-5.1 [facility] Comment on above: Result Comment: Hemo lysis present, Results??could be affected. ?? Performed By: #### L 500.4050, L501.9520, L100.0100 ####[facility] [address] [place], [address] Sodium [Moles/Vol] 138 mmol/L Normal 133-145 [facility] Comment on above: Performed By: #### L 500.4050, L501.9520, L100.0100 ####[facility] [address] [place], [address] T PROT 7.1 g/dL Normal 5.9-8.4 [facility] Comment on above: Performed By: #### L 500.4050, L501.9520, L100.0100 ####[facility] [address] [place], [address] Urea nitrogen [Mass/Vol] 18 mg/dL Normal 4-19 [facility] Comment on above: Performed By: #### L 500.4050, L501.9520, L100.0100 ####[facility] [address] [place], [address] Emergency Department Summary on 02-18-2025 Emergency Department Summary [facility] Medical Records Department [address] [place] [address] Emergency Department Summary 02/18/25 MR#: [id number] Acct: [id number] Name: JAI GREEN Rep #: [id number] : 1970 54 From: Danish Li MD PCP: TREE Hawthorne Status:DEP ER Location: ED ADDENDUM by Dr. Danish Li MD on 02/19/25 at 0041 Sinus rhythm rate of 81. EKG is normal. WA interval is under 54 ms. QRS duration 90 ms. QT duration 380 ms. [place] is normal. 02/19/25 0041 Cosigner Signature (if applicable): cc: TREE Triana * Signed HPI History of Present [...] Nares patent. (more content not included)... Normal [facility] Eosinophil percentageOrdered By: Danish Li on 02-18-2025 Eosinophils/100 WBC (Bld) 4.4 % 0-5 [facility] Epithelial cells.squamous LM Ql (Urine sed)Ordered By: Danish Li on 02-18-2025 Epithelial cells.squamous LM.HPF (Urine sed) [#/Area] 0 /[HPF] 0-5 [facility] Erythrocyte distribution wid th ratioOrdered By: Danish Li on 02-18-2025 Erythrocyte distribution width (RBC) [Ratio] 14.0 % 11.6-14.6 [facility] Erythrocyte distribution wid th standard deviationOrdered By: Danish Li on 02-18-2025 Erythrocyte distribution width (RBC) [Entitic vol] 45.6 fL High 35.1-43.9 [facility] Erythrocyte distribution width (RBC) [Ratio] 45.6 fl High 35.1-43.9 [facility] Estimation of creatinine hilton aranceOrdered By: Danish Li on 02-18-2025 Estimated Creatinine Clearance Calc 169.78 ml/min 50-250 [facility] GFR/1.73 sq M.predicted chana g non-blacks MDRD (S/P/Bld) [Vol rate/Area]Ordered By: Danish Li on 02-18-2025 Estimated GFR (MDRD) Non-Af Amer 108 >60 [facility] Comment on above: mL/min/1.73m2 CKD-EP I Creatinine Equation (2020) Glomerular filtration rate ( GFR) estimation/1.73 sq m using serum, plasma, or whole bOrdered By: Danish Li on 02-18-2025 GFR/1.73 sq M.predicted among non-blacks MDRD (S/P/Bld) [Vol rate/Area] 108 mL/min/{1.73_m2} >60 [facility] Comment on above: mL/min/1.73m2 CKD-EP I Creatinine Equation (2020) Glucose Ql (U)Ordered By: Jaye Li on 02-18-2025 Urine Glucose (UA) Normal mg/dl Normal [facility] Hematocrit Auto (Bld) [Volum e fraction]Ordered By: Danish Li on 02-18-2025 Hematocrit (Bld) [Volume fraction] 48.2 % 40-54 [facility] Hemoglobin measurementOrdere d By: Danish Li on 02-18-2025 Hemoglobin (Bld) [Mass/Vol] 16.3 g/dL 13.0-16.5 [facility] Immature granulocytes/100 WB C Auto (Bld)Ordered By: Danish Li on 02-18-2025 Immature granulocytes/100 WBC (Bld) 0.500 % 0.0-0.9 [facility] Comment on above: IG% - Immature Granu locytes (promyelocytes, myelocytes and metamyelocytes) > 1% indicates that a LEFT SHIFT is Present. Ketones Test strip Ql (U)Ord ered By: Danish Li on 02-18-2025 Ketones Ql (U) Negative Negative [facility] Laboratory - Chemistry and C hemistry - challengeOrdered By: Danish Li on 02-18-2025 AST [Catalytic activity/Vol] 25 U/L <38 [facility] Comment on above: Hemolysis present, R esults could be affected. Lymphocytes Auto (Unsp spec) [#/Vol]Ordered By: Danish Li on 02-18-2025 Lymphocytes (Bld) [#/Vol] 2.03 10*3/uL 0.83-4.51 [facility] Lymphocytes/100 WBC Auto (Un sp spec)Ordered By: Danish Li on 02-18-2025 Lymphocytes/100 WBC (Bld) 24.3 % 19-41 [facility] MCV (mean corpuscular volume ) determinationOrdered By: Danish Li on 02-18-2025 MCV (RBC) [Entitic vol] 89.8 fL 80-94 [facility] Mean corpuscular hemoglobin (MCH) determinationOrdered By: Danish Li on 02-18-2025 MCH (RBC) [Entitic mass] 30.4 pg 27.0-32.0 [facility] Mean corpuscular hemoglobin concentration (MCHC) determinationOrdered By: Danish Li on 02-18-2025 MCHC (RBC) [Mass/Vol] 33.8 g/dL 32-36 [facility] Mean platelet volume determi nationOrdered By: Danish Li on 02-18-2025 Platelet mean volume (Bld) [Entitic vol] 10.9 fL 6.2-12.0 [facility] Microscopic analysis of urin e for red blood cells (RBC)Ordered By: Danish Li on 02-18-2025 Microscopic analysis of urine for red blood cells (RBC) 0 SEEN /hpf 0-5 [facility] Urine RBC 0 SEEN /hpf 0-5 [facility] Monocyte percentageOrdered B y: Danish Li on 02-18-2025 Monocytes/100 WBC (Bld) 8.7 % 0-10 [facility] Mucus LM Ql (Urine sed)Order ed By: Danish Li on 02-18-2025 Mucus Ql (Urine sed) 1+ /hpf [facility] Neutrophil percentageOrdered By: Danish Li on 02-18-2025 Neutrophils/100 WBC (Bld) 61.6 % 47-70 [facility] Nitrite Test strip Ql (U)Ord ered By: Danish Li on 02-18-2025 Nitrite Ql (U) Negative Negative [facility] Nucleated red blood cell per centageOrdered By: Danish Li on 02-18-2025 Nucleated RBC/100 WBC (Bld) [Ratio] 0 % 0-5 [facility] Platelet countOrdered By: Jaye Li on 02-18-2025 Platelets (Bld) [#/Vol] 183 10*3/uL 150-450 [facility] Potassium (Unsp spec) [Mass/ Vol]Ordered By: Danish Li on 02-18-2025 Potassium [Moles/Vol] 4.0 mmol/L 3.3-5.1 [facility] Comment on above: Hemolysis present, R esults could be affected. Potassium measurement (mass/ volume)Ordered By: Danish Li on 02-18-2025 Potassium (Unsp spec) [Mass/Vol] 4.0 mmol/L 3.3-5.1 [facility] Comment on above: Hemolysis present, R esults could be affected. Protein Test strip Ql (U)Ord ered By: Danish Li on 02-18-2025 Protein Ql (U) 30 mg/dl High Negative [facility] RBC Auto (Bld) [#/Vol]Ordere d By: Danish Li on 02-18-2025 RBC (Bld) [#/Vol] 5.37 10*6/uL 4.6-6.2 [facility] Serum creatinine measurement (mass/volume)Ordered By: Danish Li on 02-18-2025 Creatinine [Mass/Vol] 0.75 mg/dL 0.70-1.20 [facility] Serum globulin measurementOr dered By: Danish Li 02-18-2025 Globulin (S) [Mass/Vol] 2.9 g/dL 2.2-4.2 [facility] Serum glucose measurement (m ass/volume)Ordered By: Danish Li 02-18-2025 Glucose [Mass/Vol] 164 mg/dL High 70-99 [facility] Serum or plasma alanine mina otransferase (ALT) measurementOrdered By: Danish Li 02-18-2025 ALT [Catalytic activity/Vol] 27 U/L <47 [facility] Serum or plasma albumin violet urement (mass/volume)Ordered By: Danish Li on 02-18-2025 Albumin [Mass/Vol] 4.3 g/dL 3.5-5.0 [facility] Serum or plasma albumin/glob ulin mass ratioOrdered By: Danishdomi Li 02-18-2025 Albumin/Globulin [Mass ratio] 1.5 {ratio} 0.9-2.4 [facility] Serum or plasma alkaline joe sphatase measurementOrdered By: Danishdomi Li 02-18-2025 ALP [Catalytic activity/Vol] 78 U/L 40-129 [facility] Serum or plasma calcium violet urement (mass/volume)Ordered By: Danish Li on 02-18-2025 Calcium [Mass/Vol] 9.8 mg/dL 7.6-11.0 [facility] Serum or plasma urea nitroge n measurement (mass/volume)Ordered By: Danish Li on 02-18-2025 Urea nitrogen [Mass/Vol] 18 mg/dL 4-19 [facility] Sodium levelOrdered By: Danish Li on 02-18-2025 Sodium [Moles/Vol] 138 mmol/L 133-145 [facility] Squamous epithelial cells de tection in urine sediment by light microscopyOrdered By: Danish Li on 02-18-2025 Epithelial cells.squamous LM Ql (Urine sed) 0-5 SEEN /hpf 0-5 [facility] TSH DL <= 0.005 mIU/L QnOrde red By: Danish Li on 02-18-2025 Thyroid Stimulating Hormone (TSH) 3.180 uIU/mL 0.300-4.20 0 [facility] TSH Qn 3.180 uIU/mL 0.300-4.20 0 [facility] Thyroid Stim Hormone (TSH)on 02-18-2025 TSH 3.180 uIU/mL Normal 0.300-4.20 0 [facility] Comment on above: Performed By: #### L 500.4050, L501.9520, L100.0100 ####[facility] [address] [place], [place], [id number] Total proteinOrdered By: Danish Li on 02-18-2025 Protein [Mass/Vol] 7.1 g/dL 5.9-8.4 [facility] Urinalysis, Completeon 02-18 EPI,SQUAMOUS 0-5 SEEN Normal 0-5 [facility] Comment on above: Order Comment: CLEAN CATCH Performed By: #### L 400.0001 #### [facility] [address] [place], [address] Mucus Ql (Urine sed) 1+ /hpf Normal [facility] Comment on above: Order Comment: CLEAN CATCH Performed By: #### L 400.0001 #### [facility] [address] [place], [place], [address] RBC 0 SEEN Normal 0-5 [facility] Comment on above: Order Comment: CLEAN CATCH Performed By: #### L 400.0001 #### [facility] [address] [place], [address] WBC 0-5 SEEN Normal 0-5 [facility] Comment on above: Order Comment: CLEAN CATCH Performed By: #### L 400.0001 #### [facility] [address] [place], [place], [address] BACTERIA 0 SEEN Normal None Seen [facility] Comment on above: Order Comment: CLEAN CATCH Performed By: #### L 400.0001 #### [facility] [address] [place], [place], [id number] Urine blood detectionOrdered By: Danish Li on 02-18-2025 Urine Occult Blood Negative Negative [facility] Urine clarityOrdered By: Danish Li on 02-18-2025 Clarity (U) Clear Clear [facility] Urine color determinationOrd ered By: Danish Li on 02-18-2025 Color (U) Yellow Yellow [facility] Urine glucose detectionOrder ed By: Danish Li on 02-18-2025 Glucose Ql (U) Normal mg/dl Normal [facility] Urine leukocyte esterase det ection by dipstickOrdered By: Danish Li on 02-18-2025 Leukocyte esterase Test strip Ql (U) 25 /ul High Negative [facility] Urine pHOrdered By: Danish el on 02-18-2025 pH (U) 5.0 [pH] 5.0 - 8.0 [facility] Urine sediment bacteria coun t by microscopy (number/high power field)Ordered By: Danish Li on 02-18-2025 Bacteria LM.HPF (Urine sed) [#/Area] 0 /[HPF] None Seen [facility] Urine specific gravity measu rementOrdered By: Danish Li on 02-18-2025 Specific gravity (U) [Rel density] 1.025 1.002-1.03 0 [facility] Urine urobilinogen measureme ntOrdered By: Danish Li on 02-18-2025 Urobilinogen Ql (U) Normal mg/dl Normal [facility] Urobilinogen Ql (U)Ordered B y: Danish Li on 02-18-2025 Urine Urobilinogen Normal mg/dl Normal [facility] White blood cell (WBC) count Ordered By: Danish Li on 02-18-2025 WBC (Bld) [#/Vol] 8.4 10*3/uL 4.4-11.0 [facility] White blood cell countOrdere d By: Danish Li on 02-18-2025 Urine WBC 0-5 SEEN /hpf 0-5 [facility] White blood cell count 0-5 SEEN /hpf 0-5 [facility] CNOVon 02-05-2025 CNOV Office Visit (UCWSTR ) -- JAI GREEN ([id number]) 1970 M Date Time Provider Department 02/05/25 4:00 PM ADELE MCCLURE [facility] During your visit today, we recorded the following information about you: Temperature Pulse Respiration Blood pressure 97.8 degrees 78/minute 20/minute 142/82 Weight 142.1 kg Adele Mcclure, [employer]OD[employer] 02/05/2025 6:06 PM Signed CC: Patient presents [...] primary care and has gone to the [facility] for care and blood pressure management. Denies [...] tenderness or frontal sinus tenderness. Mouth/Throat: Lips: [place]. Mouth: Mucous membranes are moist. No injury, [...] - Appointment made with Nancy Doe in [place] for 03/14/2025 - Start taking DOXYCYLINE 100MG [...] Acute cough (more content not included)... Normal [facility] STREP A MOLECULAR (POC)on Procedural Control Valid [facility] Strep A (POCT) Negative Negative [facility] XR CHEST 2V FRONTAL/LATon XR CHEST 2V [...] thoracic spine. IMPRESSION: No acute radiographic abnormality. Food Service Helper: [facility] Transcribe Date/Time: Feb 05 2025 4:44P Dictated by : AYE WELSH MD This examination was interpreted and the report reviewed and electronically signed by: AYE WELSH MD on Feb 05 2025 4:45PM EST [id number] Normal [facility] XR Chest PA and Lateralon IMPRESSION: No acute radiographic abnormality. Food Service Helper: [facility] Transcribe Date/Time: Feb 05 2025 4:44P Dictated [...] the thoracic spine. DIVISION OF RADIOLOGY Provider, [facility] - 02/05/2025 * * *Final Report* * [...] spine. IMPRESSION IMPRESSION: No acute radiographic abnormality. Food Service Helper: [facility] Transcribe Date/Time: Feb 05 2025 4:44P Dictated by : AYE WELSH MD This examination was interpreted and the report reviewed and electronically signed by: AYE WELSH MD on Feb 05 2025 4:45PM EST [facility] Radiology Study observation (narrative) [facility] XR Chest PA and LateralOrder ed By: [facility] Provider on 02-05-2025 [facility] Bedside Glucoseon 02-04-2025 FINGERSTICK GLU 130 mg/dL High 74-106 [facility] Comment on above: Result Comment: HU JOHNSON OF PATIENT CARE PER NURSING PROTOCOL Performed By: #### L 501.080 ####[facility] [address] [place], [address] Emergency Department Summary on 02-04-2025 Emergency Department Summary [facility] Medical Records Department [address] [place] [address] Emergency Department Summary 02/04/25 MR#: [id number] Acct: [id number] Name: JAI GREEN Rep #: [id number] : 1970 54 From: Katt MORIN PCP: [...] breath. No vomiting, abdominal pain or diarrhea. [facility] Medical History Pancreatitis No previous significant medical [...] 5/5 upper and lower extremity strength, normal eyoflx-li-bzap bilaterally, no truncal ataxia. PSYCH: Normal affect. [...] Oxygen Delivery Method Room Air Room Air [facility] MDM Narrative Medical decision making narrative: 54-year-old [...] hr 02/04/25 18:09 POC Glucose 130 H [facility] Narrative Medical decision making narrative: 54-year-old male reports episodes of BPPV when rolling over in bed today. He has history of similar. He states he also just feels tired and off but has no specific symptoms. He is awake and alert. Stable (more content not included)... Normal [facility] Glucose measurement at [facility] deOrdered By: ED PROVIDER on 02-04-2025 Bedside Glucose (Misc Panel) 130 mg/dL High 74-106 [facility] Comment on above: MANAGEMENT OF PATIEN T CARE PER NURSING PROTOCOL Glucose [Mass/Vol] 130 mg/dL High 74-106 [facility] Comment on above: MANAGEMENT OF PATIEN T CARE PER NURSING PROTOCOL Influenza virus A and B and SARS-CoV-2 (COVID-19) and Respiratory syncytial virus RNAOrdered By: Katt Bhatt on 02-04-2025 SARS-CoV-2 (COVID-19) RNA ELLA+probe Ql (Unsp spec) [facility] M100.678on 02-04-2025 M100.678 Pending SARS-CoV-2 (COVID 19) Negative INFLUENZA A Negative INFLUENZA B Negative RSV PCR Negative Normal [facility] Comment on above: Performed By: #### M 100.678 #### [facility] [address] [place], [address] Basic Metabolic Profile (BMP )on 12-22-2024 BUN/CRE 18.5 RATIO Normal 10-20 [facility] Comment on above: Performed By: #### L 100.0100, L503.6005, L500.2500 #### [facility] [address] [place], [address] CA,Total 9.2 mg/dL Normal 8.5-10.1 [facility] Comment on above: Performed By: #### L 100.0100, L503.6005, L500.2500 #### [facility] [address] [place], [address] Chloride [Moles/Vol] 102 mmol/L Normal 98-107 [facility] Comment on above: Performed By: #### L 100.0100, L503.6005, L500.2500 #### [facility] [address] [place], [address] CO2 [Moles/Vol] 32.0 mmol/L Normal 21.0-32.0 [facility] Comment on above: Performed By: #### L 100.0100, L503.6005, L500.2500 #### [facility] [address] [place], [address] Creatinine [Mass/Vol] 0.86 mg/dL Normal 0.70-1.30 [facility] Comment on above: Result Comment: The validity of the calculated GFR GFRAA in patients over 70 years has not been determined. Clinical correlation is essential. Performed By: #### L 100.0100, L503.6005, L500.2500 #### [facility] [address] [place], [address] ECRCL 146.10 ml/min Normal [facility] Comment on above: Performed By: #### L 100.0100, L503.6005, L500.2500 #### [facility] [address] [place], [address] EST GFR - AA 119 mL/min Normal >60 [facility] Comment on above: Result Comment: Afri can Macedonian GFR Calc Performed By: #### L 100.0100, L503.6005, L500.2500 #### [facility] [address] [place], [address] GAP 5 Normal 5-15 [facility] Comment on above: Performed By: #### L 100.0100, L503.6005, L500.2500 #### [facility] [address] [place], [address] GFR/1.73 sq M.predicted among non-blacks MDRD (S/P/Bld) [Vol rate/Area] 99 mL/min/{1.73_m2} Normal >60 [facility] Comment on above: Result Comment: Non- GFR Calc Performed By: #### L 100.0100, L503.6005, L500.2500 #### [facility] [address] [place], [address] Glucose [Mass/Vol] 128 mg/dL High 74-106 [facility] Comment on above: Result Comment: Fast ing Glucose result greater than or equal to 126 mg/dL suggests DIABETES MELLITUS per A.D.A. criteria. Performed By: #### L 100.0100, L503.6005, L500.2500 #### [facility] [address] [place], [address] Potassium [Moles/Vol] 4.0 mmol/L Normal 3.5-5.1 [facility] Comment on above: Performed By: #### L 100.0100, L503.6005, L500.2500 #### [facility] [address] [place], [address] Sodium [Moles/Vol] 139 mmol/L Normal 136-145 [facility] Comment on above: Performed By: #### L 100.0100, L503.6005, L500.2500 #### [facility] [address] [place], [address] Urea nitrogen [Mass/Vol] 16 mg/dL Normal 7-18 [facility] Comment on above: Performed By: #### L 100.0100, L503.6005, L500.2500 #### [facility] [address] [place], [address] CBC W/Diff, Automatedon -2 Absolute Lymph 1.92 X10 3/uL Normal 0.83-4.51 [facility] Comment on above: Performed By: #### L 100.0100, L503.6005, L500.2500 ####[facility] [address] [place], [address] Absolute Neut 8.4 X10 3/uL High 2.0-7.7 [facility] Comment on above: Performed By: #### L 100.0100, L503.6005, L500.2500 ####[facility] [address] [place], [address] Basophils/100 WBC (Bld) 0.3 % Normal 0-1 [facility] Comment on above: Performed By: #### L 100.0100, L503.6005, L500.2500 ####[facility] [address] [place], [address] Eosinophils/100 WBC (Bld) 3.0 % Normal 0-5 [facility] Comment on above: Performed By: #### L 100.0100, L503.6005, L500.2500 ####[facility] [address] [place], [address] Erythrocyte distribution width (RBC) [Ratio] 13.2 % Normal 11.6-14.6 [facility] Comment on above: Performed By: #### L 100.0100, L503.6005, L500.2500 ####[facility] [address] [place], [address] Hematocrit (Bld) [Volume fraction] 48.9 % Normal 40-54 [facility] Comment on above: Performed By: #### L 100.0100, L503.6005, L500.2500 ####[facility] [address] [place], [address] Hemoglobin (Bld) [Mass/Vol] 16.2 g/dL Normal 13.0-16.5 [facility] Comment on above: Performed By: #### L 100.0100, L503.6005, L500.2500 ####[facility] [address] [place], [address] IG% 0.700 Normal 0.0-0.9 [facility] Comment on above: Result Comment: IG% - Immature Granulocytes (promyelocytes, myelocytes and metamyelocytes) > 1% indicates that a LEFT SHIFT is Present. Performed By: #### L 100.0100, L503.6005, L500.2500 ####[facility] [address] [place], [address] Lymphocytes/100 WBC (Bld) 16.5 % Low 19-41 [facility] Comment on above: Performed By: #### L 100.0100, L503.6005, L500.2500 ####[facility] [address] [place], [address] MCH (RBC) [Entitic mass] 30.7 pg Normal 27.0-32.0 [facility] Comment on above: Performed By: #### L 100.0100, L503.6005, L500.2500 ####[facility] [address] [place], [address] MCHC (RBC) [Mass/Vol] 33.1 g/dL Normal 32-36 [facility] Comment on above: Performed By: #### L 100.0100, L503.6005, L500.2500 ####[facility] [address] [place], [address] MCV (RBC) [Entitic vol] 92.8 fL Normal 80-94 [facility] Comment on above: Performed By: #### L 100.0100, L503.6005, L500.2500 ####[facility] [address] [place], [address] Monocytes/100 WBC (Bld) 7.8 % Normal 0-10 [facility] Comment on above: Performed By: #### L 100.0100, L503.6005, L500.2500 ####[facility] [address] [place], [address] Neutrophils/100 WBC (Bld) 71.7 % High 47-70 [facility] Comment on above: Performed By: #### L 100.0100, L503.6005, L500.2500 ####[facility] [address] [place], [address] Nucleated RBC (Bld) [#/Vol] 0 10*3/uL Normal 0-5 [facility] Comment on above: Performed By: #### L 100.0100, L503.6005, L500.2500 ####[facility] [address] [place], [address] Platelet mean volume (Bld) [Entitic vol] 11.0 fL Normal 6.2-12.0 [facility] Comment on above: Performed By: #### L 100.0100, L503.6005, L500.2500 ####[facility] [address] [place], [address] Platelets (Bld) [#/Vol] 216 10*3/uL Normal 150-450 [facility] Comment on above: Performed By: #### L 100.0100, L503.6005, L500.2500 ####[facility] [address] [place], [address] RBC (Bld) [#/Vol] 5.27 10*6/uL Normal 4.6-6.2 [facility] Comment on above: Performed By: #### L 100.0100, L503.6005, L500.2500 ####[facility] [facility] [address] [place], [address] RDW SD 45.2 fl High 35.1-43.9 [facility] Comment on above: Performed By: #### L 100.0100, L503.6005, L500.2500 ####[facility] [address] [place], [address] WBC (Bld) [#/Vol] 11.7 10*3/uL High 4.4-11.0 [facility] Comment on above: Performed By: #### L 100.0100, L503.6005, L500.2500 ####[facility] [address] [place], [address] Lactic Acidon 12-22-2024 Lactate [Moles/Vol] 1.4 mmol/L Normal 0.4-1.9 [facility] Comment on above: Order Comment: Y Performed By: #### L 100.0100, L503.6005, L500.2500 #### [facility] [address] [place], [address] M100.677on 12-22-2024 M100.677 Negative Normal [facility] Comment on above: Performed By: #### M 100.678, M100.677 ####[facility] [address] [place], [address] M100.678on 12-22-2024 M100.678 Pending SARS-CoV-2 (COVID 19) Negative INFLUENZA A Negative INFLUENZA B Negative RSV PCR Negative Normal [facility] Comment on above: Performed By: #### M 100.678, M100.677 ####[facility] [address] [place], [address] Soft Tissue Neck WITH Contra ston 12-22-2024 Soft Tissue Neck WITH Contrast [facility] Imaging Services [address] [place] [address] Soft Tissue Neck WITH Contrast MR#: [id number] Acct: [id number] Name: JAI GREEN MARCELL Rep #: [id number] : 1970 M 54 From: Yuli Odom MD PCP: TREE Hawthorne Status: [facility] ER Study: Soft Tissue Neck WITH Contrast Date of Exam: 0 12/22/24 Exam# [id number] Ordering Dr: Norbert Maharaj DO [id number] STUDY: CT SOFT TISSUE NECK WITH CONTRAST [...] FINDINGS: Normal bilateral parotid glands. Normal bilateral biomedical engineering internship spaces. Normal bilateral parapharyngeal spaces. Normal bilateral [...] , CC: TREE Triana; Norbert Maharaj DO Food Service Helper: Signed Normal [facility] Absolute neutrophil countOrd ered By: Norbert Maharaj on 12-21-2024 Neutrophils (Bld) [#/Vol] 8.4 10*3/uL High 2.0-7.7 [facility] Basophil percentageOrdered B y: Norbert Maharaj on 12-21-2024 Basophils/100 WBC (Bld) 0.3 % 0-1 [facility] Blood urea nitrogen (BUN)/cr eatinine ratioOrdered By: Norbert Maharaj on 12-21-2024 Urea nitrogen/Creatinine [Mass ratio] 18.5 mg/mg 10-20 [facility] Carbon dioxide measurementOr dered By: Norbetr Maharaj on 12-21-2024 CO2 [Moles/Vol] 32.0 mmol/L 21.0-32.0 [facility] Chloride measurementOrdered By: Norbert Maharaj on 12-21-2024 Chloride [Moles/Vol] 102 mmol/L 98-107 [facility] Emergency Department Summary on 12-21-2024 Emergency Department Summary [facility] Medical Records Department [address] [place] [address] Emergency Department Summary 12/21/24 MR#: [id number] Acct: [id number] Name: JAI GREEN Rep #: [id number] : 1970 54 From: Norbert Maharaj DO PCP: TREE Hawthorne Status:REG ER Location: ED HPI History of Present Illness Chief Complaint: Sore Throat Informant: patient Narrative Narrative: Patient is a 54-year-old male with past medical history of hypertension opf-rkahiid-adhxgcpuw diabetes and pancreatitis. He states in the last 24 hours he has noticed a sore throat. He states that there has been no change to his voice and he denies any difficulty swallowing but simply states it is painful to do so. He reports has been taking fgfi-tkl-yonlmlg Tylenol and Motrin without any symptom improvement. He denies any fevers. He states he has noticed some swelling around his chin in the last 12 hours or so. He denies difficulty breathing. He denies any known sick contacts. He does report mild congestion with this. However as his symptoms are not improving with lzit-xol-ysjsutb medication and he is noticed increased swelling he had concern for infection and comes in for evaluation [facility] Medical History Pancreatitis No previous significant medical [...] intact bila (more content not included)... Normal [facility] Eosinophil percentageOrdered By: Norbert Maharaj on 12-21-2024 Eosinophils/100 WBC (Bld) 3.0 % 0-5 [facility] Erythrocyte distribution wid th ratioOrdered By: Norbert Maharaj on 12-21-2024 Erythrocyte distribution width (RBC) [Ratio] 13.2 % 11.6-14.6 [facility] Erythrocyte distribution wid th standard deviationOrdered By: Norbert Maharaj on 12-21-2024 Erythrocyte distribution width (RBC) [Entitic vol] 45.2 fL High 35.1-43.9 [facility] Estimated glomerular filtrat ion rate (GFR) AmericanOrdered By: Norbert Maharaj on 12-21-2024 Estimated GFR (MDRD) Amer 119 mL/min >60 [facility] Comment on above: GFR Calc Estimation of creatinine hilton aranceOrdered By: Norbert Maharaj on 12-21-2024 Estimated Creatinine Clearance Calc 146.10 ml/min [facility] Glomerular filtration rate ( GFR) estimationOrdered By: Norbert Maharaj on 12-21-2024 Estimated GFR (MDRD) Non-Af Amer 99 mL/min >60 [facility] Comment on above: Non- GFR Calc Glucose measurementOrdered B y: Norbert Maharaj on 12-21-2024 Glucose [Mass/Vol] 128 mg/dL High 74-106 [facility] Comment on above: Fasting Glucose resu lt greater than or equal to 126 mg/dL suggests DIABETES MELLITUS per A.D.A. criteria. Hematocrit Auto (Bld) [Volum e fraction]Ordered By: Norbert Maharaj on 12-21-2024 Hematocrit (Bld) [Volume fraction] 48.9 % 40-54 [facility] Hemoglobin measurementOrdere d By: Norbert Maharaj on 12-21-2024 Hemoglobin (Bld) [Mass/Vol] 16.2 g/dL 13.0-16.5 [facility] Immature granulocytes/100 WB C Auto (Bld)Ordered By: Norbert Maharaj on 12-21-2024 Immature granulocytes/100 WBC (Bld) 0.700 % 0.0-0.9 [facility] Comment on above: IG% - Immature Granu locytes (promyelocytes, myelocytes and metamyelocytes) > 1% indicates that a LEFT SHIFT is Present. Influenza virus A and B and SARS-CoV-2 (COVID-19) and Respiratory syncytial virus RNAOrdered By: Norbert Maharaj on 12-21-2024 SARS-CoV-2 (COVID-19) RNA ELLA+probe Ql (Unsp spec) [facility] Lactic acid measurementOrder ed By: Norbert Maharaj on 12-21-2024 Lactate [Moles/Vol] 1.4 mmol/L 0.4-2.0 [facility] Lymphocytes Auto (Unsp spec) [#/Vol]Ordered By: Norbert Maharaj on 12-21-2024 Lymphocytes (Bld) [#/Vol] 1.92 10*3/uL 0.83-4.51 [facility] Lymphocytes/100 WBC Auto (Un sp spec)Ordered By: Norbert Maharaj on 12-21-2024 Lymphocytes/100 WBC (Bld) 16.5 % Low 19-41 [facility] MCV (mean corpuscular volume ) determinationOrdered By: Norbert Maharaj on 01-24-2025 MCV (RBC) [Entitic vol] 92.8 fL 80-94 [facility] Mean corpuscular hemoglobin (MCH) determinationOrdered By: Norbert Maharaj on 12-21-2024 MCH (RBC) [Entitic mass] 30.7 pg 27.0-32.0 [facility] Mean corpuscular hemoglobin concentration (MCHC) determinationOrdered By: Norbert Maharaj on 12-21-2024 MCHC (RBC) [Mass/Vol] 33.1 g/dL 32-36 [facility] Mean platelet volume determi nationOrdered By: Norbert Maharaj on 12-21-2024 Platelet mean volume (Bld) [Entitic vol] 11.0 fL 6.2-12.0 [facility] Monocyte percentageOrdered B y: Norbert Maharaj on 12-21-2024 Monocytes/100 WBC (Bld) 7.8 % 0-10 [facility] Neutrophil percentageOrdered By: Norbert Maharaj on 12-21-2024 Neutrophils/100 WBC (Bld) 71.7 % High 47-70 [facility] Nucleated red blood cell per centageOrdered By: Norbert Maharaj on 12-21-2024 Nucleated RBC/100 WBC (Bld) [Ratio] 0 % 0-5 [facility] Platelet countOrdered By: Brionna Maharaj on 12-21-2024 Platelets (Bld) [#/Vol] 216 10*3/uL 150-450 [facility] Potassium measurementOrdered By: Norbert Maharaj on 12-21-2024 Potassium [Moles/Vol] 4.0 mmol/L 3.5-5.1 [facility] RBC Auto (Bld) [#/Vol]Ordere d By: Norbert Maharaj on 12-21-2024 RBC (Bld) [#/Vol] 5.27 10*6/uL 4.6-6.2 [facility] S. pyogenes rRNA Probe Ql (T hroat)Ordered By: Norbert Maharaj on 12-21-2024 Streptococcus pyogenes (PCR) [facility] Serum anion gap measurementO rdered By: Norbert Maharaj on 12-21-2024 Anion gap [Moles/Vol] 5 mmol/L 5-15 [facility] Serum or plasma calcium violet urement (mass/volume)Ordered By: Norbert Maharaj on 12-21-2024 Calcium [Mass/Vol] 9.2 mg/dL 8.5-10.1 [facility] Serum or plasma creatinine m easurement (mass/volume)Ordered By: Norbert Maharaj on 12-21-2024 Creatinine [Mass/Vol] 0.86 mg/dL 0.70-1.30 [facility] Comment on above: The validity of the calculated GFR & GFRAA in patients over 70 years has not been determined. Clinical correlation is essential. Serum or plasma urea nitroge n measurement (mass/volume)Ordered By: Norbert Maharaj on 12-21-2024 Urea nitrogen [Mass/Vol] 16 mg/dL 7-18 [facility] Sodium levelOrdered By: Kyrie Maharaj on 12-21-2024 Sodium [Moles/Vol] 139 mmol/L 136-145 [facility] White blood cell (WBC) count Ordered By: Norbert Maharaj on 12-21-2024 WBC (Bld) [#/Vol] 11.7 10*3/uL High 4.4-11.0 [facility] Emergency Department Summary on 11-25-2024 Emergency Department Summary [facility] Medical Records Department [address] [place] [address] Emergency Department Summary 11/25/24 MR#: [id number] Acct: [id number] Name: JAI GREEN Rep #: [id number] : 1970 54 From: Victor Manuel Frank DO PCP: Care Physician,No Primary Status:PRE ER Location: ED HPI History of Present Illness Chief Complaint: Eye Problem [facility] Medical History Pancreatitis No previous significant medical [...] Ox 97 Oxygen Delivery Method Room Air [facility] [place] [place] Narrative Medical decision making narrative: HISTORY OF [...] signs reviewed Constitutional: please see mdm HENT: MMM Eyes: Pupils equal round and [...] History obtained from others: none Consults: none [facility] Narrative: Patient was initially hypertensive otherwise afebrile [...] Discharge home This note was generated with [employer] dictation software. It may contain incorrect words, spelling, and punctuation that were not noted in review of the chart prior to signi (more content not included)... Normal [facility] Emergency Department Summary on 10-27-2024 Emergency Department Summary [facility] Medical Records Department [address] [place] [address] Emergency Department Summary 10/27/24 MR#: [id number] Acct: [id number] Name: JAI GREEN Rep #: [id number] : 1970 53 From: Marni MORIN PCP: [...] eye. He does not wear contact lenses. [facility] Medical History Pancreatitis No previous significant medical [...] including a (more content not included)... Normal [facility] Emergency Department Summary on 09-08-2024 Emergency Department Summary [facility] Medical Records Department [address] [place] [address] Emergency Department Summary 09/08/24 MR#: [id number] Acct: [id number] Name: JAI GREEN Rep #: [id number] : 1970 53 From: Burton Maki MD PCP: Care Physician,No Primary Status:REG ER Location: ED HPI History of [...] for tend (more content not included)... Normal [facility] Emergency Department Summary on 08-23-2024 Emergency Department Summary [facility] Medical Records Department [address] [place] [address] Emergency Department Summary 08/23/24 MR#: [id number] Acct: [id number] Name: JAI GREEN Rep #: [id number] : 1970 53 From: Rio Dorman PCP: [...] work matthias (more content not included)... Normal [facility] 12 Lead EKGon 08-21-2024 12 Lead EKG [facility] Cardiovascular Services [address] [place] [address] 12 Lead EKG 08/21/24 1756 MR#: [id number] Acct: [id number] Name: JAI GREEN Rep #: [id number] : 1970 53 From: Arnaldo Waters MD Attending Dr: Status: DEP ER Ordering Dr: Rio Norris DO Date: 08/21/24 Location: ED Sex: M [...] rhythm Normal ECG Confirmed by Arnaldo Waters ([id number]), film editor supervisor EDGARDO ODOM ([id number]) on 08/22/2024 10:33:53 AM Referred By: Confirmed By:Arnaldo Waters 08/22/24 1033 Date Arnaldo Waters MD CC: Dr. Rio Norris DO; No Primary Care Physician Signed Normal [facility] Basic Metabolic Profile (BMP )on 08-21-2024 BUN/CRE 19.2 RATIO Normal 10-20 [facility] Comment on above: Performed By: #### L 500.2500, L100.0100 ####[facility] [address] [facility] [place], [address] CA,Total 9.1 mg/dL Normal 8.5-10.1 [facility] Comment on above: Performed By: #### L 500.2500, L100.0100 ####[facility] [address] [place], [address] Chloride [Moles/Vol] 106 mmol/L Normal 98-107 [facility] Comment on above: Performed By: #### L 500.2500, L100.0100 ####[facility] [address] [place], [address] CO2 [Moles/Vol] 31.0 mmol/L Normal 21.0-32.0 [facility] Comment on above: Performed By: #### L 500.2500, L100.0100 ####[facility] [address] [place], [address] Creatinine [Mass/Vol] 0.78 mg/dL Normal 0.70-1.30 [facility] Comment on above: Result Comment: The validity of the calculated GFR GFRAA in patients over 70 years has not been determined. Clinical correlation is essential. Performed By: #### L 500.2500, L100.0100 ####[facility] [address] [place], [address] ECRCL 160.65 ml/min Normal [facility] Comment on above: Performed By: #### L 500.2500, L100.0100 ####[facility] [address] [place], [address] EST GFR - AA 134 mL/min Normal >60 [facility] Comment on above: Result Comment: Afri can Macedonian GFR Calc Performed By: #### L 500.2500, L100.0100 ####[facility] [address] [place], [address] GAP 3 Low 5-15 [facility] Comment on above: Performed By: #### L 500.2500, L100.0100 ####[facility] [address] [place], [address] GFR/1.73 sq M.predicted among non-blacks MDRD (S/P/Bld) [Vol rate/Area] 111 mL/min/{1.73_m2} Normal >60 [facility] Comment on above: Result Comment: Non- GFR Calc Performed By: #### L 500.2500, L100.0100 ####[facility] [address] [place], [address] Glucose [Mass/Vol] 207 mg/dL High 74-106 [facility] Comment on above: Result Comment: Gluc ose result greater than or equal to 200 mg/dL suggests DIABETES MELLITUS per A.D.A. criteria. Performed By: #### L 500.2500, L100.0100 ####[facility] [address] [place], [address] Potassium [Moles/Vol] 4.1 mmol/L Normal 3.5-5.1 [facility] Comment on above: Performed By: #### L 500.2500, L100.0100 ####[facility] [address] [place], [address] Sodium [Moles/Vol] 140 mmol/L Normal 136-145 [facility] Comment on above: Performed By: #### L 500.2500, L100.0100 ####[facility] [address] [place], [address] Urea nitrogen [Mass/Vol] 15 mg/dL Normal 7-18 [facility] Comment on above: Performed By: #### L 500.2500, L100.0100 ####[facility] [address] [place], [address] CBC W/Diff, Automatedon 09-2 -2023 Absolute Lymph 2.04 X10 3/uL Normal 0.83-4.51 [facility] Comment on above: Performed By: #### M 100.678 #### [facility] [address] [place], [address] Absolute Neut 4.4 X10 3/uL Normal 2.0-7.7 [facility] Comment on above: Performed By: #### M 100.678 #### [facility] [address] [place], [address] Basophils/100 WBC (Bld) 0.3 % Normal 0-1 [facility] Comment on above: Performed By: #### M 100.678 #### [facility] [address] [place], [address] Eosinophils/100 WBC (Bld) 4.1 % Normal 0-5 [facility] Comment on above: Performed By: #### M 100.678 #### [facility] [address] [place], [address] Erythrocyte distribution width (RBC) [Ratio] 14.2 % Normal 11.6-14.6 [facility] Comment on above: Performed By: #### M 100.678 #### [facility] [address] [place], [address] Hematocrit (Bld) [Volume fraction] 51.5 % Normal 40-54 [facility] Comment on above: Performed By: #### M 100.678 #### [facility] [address] [place], [address] Hemoglobin (Bld) [Mass/Vol] 16.6 g/dL High 13.0-16.5 [facility] Comment on above: Performed By: #### M 100.678 #### [facility] [address] [place], [address] IG% 0.500 Normal 0.0-0.9 [facility] Comment on above: Result Comment: IG% - Immature Granulocytes (promyelocytes, myelocytes and metamyelocytes) > 1% indicates that a LEFT SHIFT is Present. Performed By: #### M 100.678 #### [facility] [address] [place], [address] Lymphocytes/100 WBC (Bld) 27.6 % Normal 19-41 [facility] Comment on above: Performed By: #### M 100.678 #### [facility] [address] [place], [address] MCH (RBC) [Entitic mass] 29.6 pg Normal 27.0-32.0 [facility] Comment on above: Performed By: #### M 100.678 #### [facility] [address] [place], [address] MCHC (RBC) [Mass/Vol] 32.2 g/dL Normal 32-36 [facility] Comment on above: Performed By: #### M 100.678 #### [facility] [address] [place], [address] MCV (RBC) [Entitic vol] 92.0 fL Normal 80-94 [facility] Comment on above: Performed By: #### M 100.678 #### [facility] [address] [place], [address] Monocytes/100 WBC (Bld) 7.7 % Normal 0-10 [facility] Comment on above: Performed By: #### M 100.678 #### [facility] [address] [place], [address] Neutrophils/100 WBC (Bld) 59.8 % Normal 47-70 [facility] Comment on above: Performed By: #### M 100.678 #### [facility] [address] [place], [address] Nucleated RBC (Bld) [#/Vol] 0 10*3/uL Normal 0-5 [facility] Comment on above: Performed By: #### M 100.678 #### [facility] [address] [place], [address] Platelet mean volume (Bld) [Entitic vol] 10.9 fL Normal 6.2-12.0 [facility] Comment on above: Performed By: #### M 100.678 #### [facility] [address] [place], [address] Platelets (Bld) [#/Vol] 158 10*3/uL Normal 150-450 [facility] Comment on above: Performed By: #### M 100.678 #### [facility] [address] [place], [address] RBC (Bld) [#/Vol] 5.60 10*6/uL Normal 4.6-6.2 [facility] Comment on above: Performed By: #### M 100.678 #### [facility] [address] [place], [address] RDW SD 47.8 fl High 35.1-43.9 [facility] Comment on above: Performed By: #### M 100.678 #### [facility] [address] [place], [address] WBC (Bld) [#/Vol] 7.4 10*3/uL Normal 4.4-11.0 [facility] Comment on above: Performed By: #### M 100.678 #### [facility] [address] [place], [address] CTA Chest W/WO Contraston CTA Chest W/WO Contrast [facility] Imaging Services [address] [place] [address] CTA Chest W/WO Contrast MR#: [id number] Acct: [id number] Name: JAI GREEN MARCELL Rep #: [id number] : 1970 M 53 From: Rogers Taylor DO PCP: Care Physician,No Primary Status: [facility] ER Study: CTA Chest W/WO Contrast Date of Exam: 08/21/24 Exam# [id number] Ordering Dr: Rio Norris DO [id number] STUDY: CTA CHEST REASON FOR EXAM: Male, [...] 20:07 EDT Reading Location ID and State: [facility] / [place] Tel [phone], Service support , CC: Dr. Rio Norris DO; No Primary Care Physician Food Service Helper: Signed Normal [facility] Chest PA and Lateralon 08-21 Chest PA and Lateral [facility] Imaging Services [address] [place] [address] Chest PA and Lateral MR#: [id number] Acct: [id number] Name: PETERJAI MARCELL Rep #: [id number] : 1970 M 53 From: Rogers Taylor DO PCP: Care Physician,No Primary Status: PRE ER Study: Chest PA and Lateral Date of Exam: 08/21/24 Exam# [id number] Ordering Dr: Rio Norris DO [id number] INDICATION: cough EXAMINATION/TECHNIQUE: X-RAY - XR Chest [...] 18:33 EDT Reading Location ID and State: [facility] / [place] Tel [phone], Service support , CC: Dr. Rio Norris DO; No Primary Care Physician Food Service Helper: Signed Normal [facility] Emergency Department Summary on 08-21-2024 Emergency Department Summary [facility] Medical Records Department [address] [place] [address] Emergency Department Summary 08/21/24 MR#: [id number] Acct: [id number] Name: JAI GREEN Rep #: [id number] : 1970 53 From: Rio Dorman PCP: [...] 94 Oxyge (more content not included)... Normal [facility] M100.678on 08-21-2024 M100.678 Pending SARS-CoV-2 (COVID 19) Negative INFLUENZA A Negative INFLUENZA B Negative RSV PCR Negative Normal [facility] Comment on above: Performed By: #### M 100.678 #### [facility] [address] [facility] [address] [place], [place], [address] Chest PA and Lateralon 08-13 Chest PA and Lateral [facility] Imaging Services [address] [place], [place] [address] Chest PA and Lateral MR#: [id number] Acct: [id number] Name: JAI GREEN Rep #: [id number] : 1970 M 53 From: Casey winters MD PCP: Care Physician,No Primary Status: REG ER Study: Chest PA and Lateral Date of Exam: 08/13/24 Exam# [id number] Ordering Dr: Abdiaziz Villeda MD [id number] STUDY: X-RAY CHEST REASON FOR EXAM: Male, [...] 14:37 EDT Reading Location ID and State: [address] [place] [address] , Service support , CC: Dr. Abdiaziz Villeda MD; No Primary Care Physician Food Service Helper: Signed Normal [facility] Emergency Department Summary on 08-13-2024 Emergency Department Summary [facility] Medical Records Department [address] [place] [address] Emergency Department Summary 08/13/24 MR#: [id number] Acct: [id number] Name: JAI GREEN Rep #: [id number] : 1970 53 From: Abdiaziz Villeda MD [...] or weakness Psychiatric Psychiatric: Denies suicidal thoughts [facility] Medical History Pancreatitis No previous significant medical [...] interpretation negati (more content not included)... Normal [facility] Chest PA and Lateralon 07-28 Chest PA and Lateral [facility] Imaging Services [address] [place] [address] Chest PA and Lateral MR#: [id number] Acct: [id number] Name: JAI GREEN Rep #: [id number] : 1970 M 53 From: Mohamud Belle MD PCP: Care Physician,No Primary Status: [facility] ER Study: Chest PA and Lateral Date of Exam: 07/28/24 Exam# [id number] Ordering Dr: Rich Lopez DO [id number] EXAM: XR CHEST, 2 VIEWS CLINICAL INDICATION: [...] Rich Lopez DO; No Primary Care Physician Food Service Helper: Signed Normal [facility] Emergency Department Summary on 07-28-2024 Emergency Department Summary [facility] Medical Records Department [address] [place] [address] Emergency Department Summary 07/28/24 MR#: [id number] Acct: [id number] Name: JAI GREEN Rep #: [id number] : 1970 53 From: Rich Lopez DO PCP: Care Physician,No Primary [facility] [place] [facility] Location: ED HPI History of Present [...] 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 He would like to not miss as much work as possible. [facility] Medical History Pancreatitis No previous significant medical [...] He un (more content not included)... Normal [facility] M100.678on 07-28-2024 M100.678 Pending SARS-CoV-2 (COVID 19) Negative INFLUENZA A Negative INFLUENZA B Negative RSV PCR Negative Normal [facility] Comment on above: Performed By: #### M [id number] #### [facility] Christo Rodrí[place], [address] No Panel Information SARS-CoV-2 & FLU Antigen (Rapid) SARS-CoV-2 (COVID 19) [facility] Work Phone: Vital Signs Date Time Vital Sign Value Performing Clinician Facility 05-13-2025 11:15-0400 Body temperature 97.39 [degF] Germaine Kong MD Work Phone: [facility] 05-13-2025 11:15-0400 Body weight 141.84 kg Germaine Kong MD Work Phone: [facility] 05-13-2025 11:15-0400 Heart rate 64 /min Germaine Kong MD Work Phone: [facility] 05-13-2025 11:15-0400 SaO2% (BldA) [Mass fraction] 94 % Germaine Kong MD Work Phone: [facility] 05-03-2025 12:26-0400 Body temperature 98.6 [degF] Kinjal Triana DATA CODER OPERATOR-C Work Phone: 2(539)[phone] [place] [address] 05-03-2025 12:26-0400 Diastolic blood pressure 94 mm[Hg] Kinjal Triana DATA CODER OPERATOR-C Work Phone: 1(137)[phone] [place] [address] 05-03-2025 12:26-0400 Heart rate 64 /min Kinjal Triana DATA CODER OPERATOR-C Work Phone: 2(970)455-330581 [place] [address] 05-03-2025 12:26-0400 Respiratory rate 18 /min Kinjal Triana DATA CODER OPERATOR-C Work Phone: 6(051)[phone] [place] [address] 05-03-2025 12:26-0400 SaO2% (BldA) [Mass fraction] 97 % Kinjal Triana DATA CODER OPERATOR-C Work Phone: 4(590)[phone] [place] [address] 05-03-2025 12:26-0400 Systolic blood pressure 155 mm[Hg] Kinjal Triana DATA CODER OPERATOR-C Work Phone: 0(455)[phone] [place] [address] 05-03-2025 10:27-0400 Body height 182.88 cm Kinjal Triana DATA CODER OPERATOR-C Work Phone: 3(849)[phone] [place] [address] 05-03-2025 10:27-0400 Body mass index (BMI) [Ratio] 43.4 kg/m2 Kinjal Triana DATA CODER OPERATOR-C Work Phone: 9(568)[phone] [place] [address] 05-03-2025 10:27-0400 Body weight 145.1 kg Kinjal Triana DATA CODER OPERATOR-C Work Phone: [facility] 03-14-2025 11:18-0400 Diastolic blood pressure 84 mm[Hg] Isle La Motte Paul DO Work Phone: [facility] 03-14-2025 11:18-0400 Systolic blood pressure 136 mm[Hg] Ramón Paul DO Work Phone: [facility] 03-14-2025 11:03-0400 Body height 182.9 cm Isle [place] Mot[place] Paul DO Work Phone: [facility] 03-14-2025 11:03-0400 Body mass index (BMI) [Ratio] 42.59 kg/m2 Isle La Motte Paul DO Work Phone: [facility] 03-14-2025 11:03-0400 Body temperature 97.5 [degF] Ramón Paul DO Work Phone: [facility] 03-14-2025 11:03-0400 Body weight 142.43 kg Ramón Paul DO Work Phone: [facility] 03-14-2025 11:03-0400 Heart rate 73 /min Ramón Paul DO Work Phone: [facility] 03-14-2025 11:03-0400 SaO2% (BldA) [Mass fraction] 96 % Ramón Paul DO Work Phone: [facility] 03-04-2025 15:23-0400 Diastolic blood pressure 88 mm[Hg] Isle [place] Paul DO Work Phone: [facility] 03-04-2025 15:23-0400 Systolic blood pressure 138 mm[Hg] Isle [place] Paul DO Work Phone: [facility] 03-04-2025 14:32-0400 Body height 182.9 cm [place] Paul DO Work Phone: [facility] 03-04-2025 14:32-0400 Body mass index (BMI) [Ratio] 42.31 kg/m2 Ramón Paul DO Work Phone: [facility] 03-04-2025 14:32-0400 Body weight 141.52 kg [place] Paul DO Work Phone: [facility] 03-04-2025 14:32-0400 Heart rate 67 /min Ramón Paul DO Work Phone: [facility] 03-04-2025 14:32-0400 SaO2% (BldA) [Mass fraction] 93 % [place] Paul DO Work Phone: [facility] 02-22-2025 08:46-0400 Diastolic blood pressure 100 mm[Hg] Ramón Paul DO Work Phone: [facility] 02-22-2025 08:46-0400 Systolic blood pressure 140 mm[Hg] Ramón Paul DO Work Phone: [facility] 02-22-2025 08:10-0400 Body height 182.9 cm Ramón Paul DO Work Phone: [facility] 02-22-2025 08:10-0400 Body mass index (BMI) [Ratio] 43.13 kg/m2 [place] Paul DO Work Phone: [facility] 02-22-2025 08:10-0400 Body temperature 98.71 [degF] Ramón Paul DO Work Phone: [facility] 02-22-2025 08:10-0400 Body weight 144.24 kg [place] Paul DO Work Phone: [facility] 02-22-2025 08:10-0400 Heart rate 75 /min Ramón Paul DO Work Phone: [facility] 02-22-2025 08:10-0400 SaO2% (BldA) [Mass fraction] 94 % Ramón Paul DO Work Phone: [facility] 02-18-2025 17:29-0400 Diastolic blood pressure 91 mm[Hg] No Primary Care Physician [facility] 02-18-2025 17:29-0400 Heart rate 70 /min No Primary Care Physician [facility] 02-18-2025 17:29-0400 Respiratory rate 20 /min No Primary Care Physician [facility] 02-18-2025 17:29-0400 Systolic blood pressure 130 mm[Hg] No Primary Care Physician [facility] 02-18-2025 15:29-0400 Body height 182.88 cm No Primary Care Physician [facility] 02-18-2025 15:29-0400 Body mass index (BMI) [Ratio] 43 kg/m2 No Primary Care Physician [facility] 02-18-2025 15:29-0400 Body temperature 97.7 [degF] No Primary Care Physician [facility] 02-18-2025 15:29-0400 Body weight 144.06 kg No Primary Care Physician [facility] 02-18-2025 15:29-0400 SaO2% (BldA) [Mass fraction] 95 % No Primary Care Physician [facility] 02-18-2025 15:03-0400 Body temperature 98.6 [degF] Kinjal Clutter PA-C Work Phone: [facility] 02-18-2025 15:03-0400 Body weight 143.6 kg Kinjal Clutter PA-C Work Phone: [facility] 02-18-2025 15:03-0400 Diastolic blood pressure 74 mm[Hg] Kinjal Clutter PA-C Work Phone: [facility] 02-18-2025 15:03-0400 Heart rate 88 /min Kinjal Clutter PA-C Work Phone: [facility] 02-18-2025 15:03-0400 Respiratory rate 18 /min Kinjal Clutter PA-C Work Phone: [facility] 02-18-2025 15:03-0400 SaO2% (BldA) [Mass fraction] 96 % Kinjal Clutter PA-C Work Phone: [facility] 02-18-2025 15:03-0400 Systolic blood pressure 132 mm[Hg] Kinjal Clutter PA-C Work Phone: [facility] 02-05-2025 16:02-0400 Body temperature 97.81 [degF] Adele Mcclure AUTOMOTIVE INSTRUCTOR.BULL BUCKER Work Phone: [facility] 02-05-2025 16:02-0400 Body weight 142.1 kg Adele Mcclure AUTOMOTIVE INSTRUCTOR.BULL BUCKER Work Phone: [facility] 02-05-2025 16:02-0400 Diastolic blood pressure 82 mm[Hg] Adele Mcclure AUTOMOTIVE INSTRUCTOR.BULL BUCKER Work Phone: [facility] 02-05-2025 16:02-0400 Heart rate 78 /min Adele Mcclure AUTOMOTIVE INSTRUCTOR.BULL BUCKER Work Phone: [facility] 02-05-2025 16:02-0400 Respiratory rate 20 /min Adele Mcclure AUTOMOTIVE INSTRUCTOR.BULL BUCKER Work Phone: [facility] 02-05-2025 16:02-0400 SaO2% (BldA) [Mass fraction] 97 % Adele Mcclure AUTOMOTIVE INSTRUCTOR.BULL BUCKER Work Phone: [facility] 02-05-2025 16:02-0400 Systolic blood pressure 142 mm[Hg] Adele Mcclure AUTOMOTIVE INSTRUCTOR.BULL BUCKER Work Phone: [facility] 02-04-2025 20:11-0400 Body temperature 98 [degF] No Primary Care Physician [facility] 02-04-2025 20:11-0400 Diastolic blood pressure 79 mm[Hg] No Primary Care Physician [facility] 02-04-2025 20:11-0400 Heart rate 82 /min No Primary Care Physician [facility] 02-04-2025 20:11-0400 Respiratory rate 17 /min No Primary Care Physician [facility] 02-04-2025 20:11-0400 SaO2% (BldA) [Mass fraction] 97 % No Primary Care Physician [facility] 02-04-2025 20:11-0400 Systolic blood pressure 139 mm[Hg] No Primary Care Physician [facility] 02-04-2025 17:05-0400 Body height 182.88 cm No Primary Care Physician [facility] 02-04-2025 17:05-0400 Body mass index (BMI) [Ratio] 41.7 kg/m2 No Primary Care Physician [facility] 02-04-2025 17:05-0400 Body weight 139.57 kg No Primary Care Physician [facility] 12-22-2024 01:36-0500 Body temperature 98.4 [degF] No Primary Care Physician [facility] 12-22-2024 01:36-0500 Diastolic blood pressure 68 mm[Hg] No Primary Care Physician [facility] 12-22-2024 01:36-0500 Heart rate 83 /min No Primary Care Physician [facility] 12-22-2024 01:36-0500 Respiratory rate 18 /min No Primary Care Physician [facility] 12-22-2024 01:36-0500 SaO2% (BldA) [Mass fraction] 94 % No Primary Care Physician [facility] 12-22-2024 01:36-0500 Systolic blood pressure 119 mm[Hg] No Primary Care Physician [facility] 12-22-2024 01:06-0500 Inhaled oxygen flow rate 2 L/min No Primary Care Physician [facility] 12-21-2024 23:09-0500 Body mass index (BMI) [Ratio] 42 kg/m2 No Primary Care Physician [facility] 12-21-2024 23:09-0500 Body weight 140.6 kg No Primary Care Physician [facility] 11-25-2024 21:30-0500 Body temperature 97.9 [degF] No Primary Care Physician [facility] 11-25-2024 21:30-0500 Diastolic blood pressure 93 mm[Hg] No Primary Care Physician [facility] 11-25-2024 21:30-0500 Heart rate 80 /min No Primary Care Physician [facility] 11-25-2024 21:30-0500 Respiratory rate 18 /min No Primary Care Physician [facility] 11-25-2024 21:30-0500 SaO2% (BldA) [Mass fraction] 93 % No Primary Care Physician [facility] 11-25-2024 21:30-0500 Systolic blood pressure 197 mm[Hg] No Primary Care Physician [facility] 11-25-2024 20:42-0500 Body mass index (BMI) [Ratio] 42.7 kg/m2 No Primary Care Physician [facility] 11-25-2024 20:42-0500 Body weight 142.88 kg No Primary Care Physician [facility] 10-27-2024 18:26-0500 Body temperature 97.8 [degF] No Primary Care Physician [facility] 10-27-2024 18:26-0500 Diastolic blood pressure 74 mm[Hg] No Primary Care Physician [facility] 10-27-2024 18:26-0500 Heart rate 76 /min No Primary Care Physician [facility] 10-27-2024 18:26-0500 Respiratory rate 16 /min No Primary Care Physician [facility] 10-27-2024 18:26-0500 SaO2% (BldA) [Mass fraction] 94 % No Primary Care Physician [facility] 10-27-2024 18:26-0500 Systolic blood pressure 155 mm[Hg] No Primary Care Physician [facility] 10-27-2024 17:36-0500 Body mass index (BMI) [Ratio] 42.7 kg/m2 No Primary Care Physician [facility] 10-27-2024 17:36-0500 Body weight 143.19 kg No Primary Care Physician [facility] 05-02-2023 02:32-0400 Body height 180.34 cm [facility] 05-02-2023 02:32-0400 Body mass index (BMI) [Ratio] 38.7 kg/m2 [facility] 05-02-2023 02:32-0400 Body temperature 96.1 [degF] [facility] 05-02-2023 02:32-0400 Body weight 125.8 kg [facility] 05-02-2023 02:32-0400 Diastolic blood pressure 105 mm[Hg] [facility] 05-02-2023 02:32-0400 Heart rate 67 /min [facility] 05-02-2023 02:32-0400 Respiratory rate 20 /min [facility] 05-02-2023 02:32-0400 SaO2% (BldA) [Mass fraction] 97 % [facility] 05-02-2023 02:32-0400 Systolic blood pressure 168 mm[Hg] [facility] 05-01-2023 12:44-0400 Body height 180.34 cm [facility] 05-01-2023 12:44-0400 Body mass index (BMI) [Ratio] 38.5 kg/m2 [facility] 05-01-2023 12:44-0400 Body temperature 97.2 [degF] [facility] 05-01-2023 12:44-0400 Body weight 125.19 kg [facility] 05-01-2023 12:44-0400 Diastolic blood pressure 107 mm[Hg] [facility] 05-01-2023 12:44-0400 Heart rate 73 /min [facility] 05-01-2023 12:44-0400 Respiratory rate 18 /min [facility] 05-01-2023 12:44-0400 SaO2% (BldA) [Mass fraction] 93 % [facility] 05-01-2023 12:44-0400 Systolic blood pressure 200 mm[Hg] [facility] 10-22-2022 16:15-0500 Body height 180.34 cm [facility] Work Phone: 10-22-2022 16:15-0500 Body mass index (BMI) [Ratio] 40.1 kg/m2 [facility] Work Phone: 10-22-2022 16:15-0500 Body temperature 98.9 [degF] [facility] Work Phone: 10-22-2022 16:15-0500 Body weight 130.6 kg [facility] Work Phone: 10-22-2022 16:15-0500 Diastolic blood pressure 94 mm[Hg] [facility] Work Phone: 10-22-2022 16:15-0500 Heart rate 78 /min [facility] Work Phone: 10-22-2022 16:15-0500 Respiratory rate 22 /min [facility] Work Phone: 10-22-2022 16:15-0500 SaO2% (BldA) [Mass fraction] 94 % [facility] Work Phone: 10-22-2022 16:15-0500 Systolic blood pressure 148 mm[Hg] [facility] Work Phone: Encounters Encounter Date Encounter Type Care Provider Facility Start: 08-06-2025 End: 08-06-2025 Telephone encounter [facility] Provider [facility] Comment on above: Appointment (Bariatr ic) Start: 08-05-2025 End: 08-05-2025 [facility] Start: 07-25-2025 End: 08-06-2025 Telephone encounter Ramón Miller DO Work Phone: [facility] Start: 07-23-2025 End: 07-25-2025 Telephone encounter Ramón Miller DO Work Phone: [facility] Start: 07-22-2025 End: 07-24-2025 Telephone encounter Ramón Miller DO Work Phone: [facility] Comment on above: Medication Request ( Refills) Start: 06-25-2025 End: 06-25-2025 Follow-up encounter Ramón Miller DO Work Phone: [facility] Start: 06-21-2025 End: 06-21-2025 ambulatory RAMÓNLEAH REIS PAUL Facility:[facility] Start: 05-13-2025 End: 05-13-2025 ambulatory UNKNOWN PROVIDER Facility:[facility] Start: 05-13-2025 End: 05-13-2025 [facility] Radiology Comment on above: Neck mass; Thyroglossal duct cyst Start: 05-13-2025 End: 05-13-2025 Office outpatient new 30 minutes Germaine Kong MD Work Phone: [facility] Otolaryngology (ENT) Comment on above: Neck mass (Primary D x) Start: 05-13-2025 End: 05-13-2025 ambulatory UNKNOWN PROVIDER Facility:[facility] Start: 05-10-2025 End: 05-10-2025 Orders Only Germaine Kong MD Work Phone: [facility] Otolaryngology (ENT) Start: 05-03-2025 End: 05-03-2025 Emergency department patient visit Kinjal Triana DATA CODER OPERATOR-C Work Phone: -Emergency Department Work Phone: Start: 03-14-2025 End: 03-14-2025 Telephone encounter Ramón Miller [facility] Start: 03-14-2025 End: 03-14-2025 Patient encounter procedure Ramón Miller DO Work Phone: [facility] Comment on above: Primary hypertension (Primary Dx); Type 2 diabetes mellitus without complication, without long-term current use of insulin ([facility]); MARIMAR (obstructive sleep apnea); Scleromyxedema; Visit for suture removal; BMI 40.0-44.9, adult ([facility]) Start: 03-14-2025 End: 03-14-2025 ambulatory [facility] Facility:[facility] Start: 03-12-2025 End: 05-12-2025 Follow-up encounter Ramón Miller DO Work Phone: [facility] Start: 03-12-2025 End: 03-12-2025 [facility] Facility:[facility] Start: 03-12-2025 End: 03-12-2025 Subsequent hospital visit by physician [facility] (I-Stat) Work Phone: Cat Scan Comment on above: Submental mass [R22. 1] Start: 03-08-2025 End: 03-08-2025 Telephone encounter Ramón Miller DO [facility]: [facility] Comment on above: Medication Authoriza tion (Ozempic) Start: 03-06-2025 End: 03-08-2025 Telephone encounter Ramón Miller DO Work Phone: [facility] Comment on above: Medication Authoriza tion (ozempic) Start: 03-04-2025 End: 03-04-2025 Patient encounter procedure Ramón Miller DO Work Phone: [facility] Comment on above: Type 2 diabetes micheal [...] [facility] Start: 03-04-2025 End: 03-04-2025 ambulatory [facility] Facility:[facility] Start: 02-28-2025 End: 02-28-2025 ambulatory [facility] Facility:[facility] Start: 02-28-2025 End: 02-28-2025 Patient encounter procedure Rula Aquino MD Work Phone: Dermatology Comment on above: APPOINTMENT CANCELLE D (Primary Dx) Start: 02-28-2025 End: 02-28-2025 ambulatory [facility] Facility:[facility] Start: 02-28-2025 End: 02-28-2025 Patient encounter procedure Rula Aquino MD Work Phone: Dermatology Comment on above: Rash and nonspecific skin eruption (Primary Dx); Skin neoplasm; Psoriasis vulgaris [L40.0] Start: 02-27-2025 End: 02-28-2025 Telephone encounter Ramón Miller DO Work Phone: [facility] Start: 02-25-2025 End: 04-27-2025 Follow-up encounter Ramón Miller DO Work Phone: [facility] Start: 02-23-2025 End: 02-23-2025 ambulatory [facility] Facility:[facility] Start: 02-22-2025 End: 02-22-2025 [facility] Facility:[facility] Start: 02-22-2025 End: 02-22-2025 [facility] Work Phone: [facility] Comment on above: Uncontrolled hyperte nsion (Primary Dx); Type 2 diabetes mellitus without complication, without long-term current use of insulin ([facility]); SOB (shortness of breath); Submental mass; Umbilical hernia without obstruction or gangrene; Observed sleep apnea; Former smoker; BMI 40.0-44.9, adult ([facility]); Psoriasis; Bilateral leg edema; Screening for thyroid disorder; Screening for hyperlipidemia; Screening for prostate cancer Start: 02-18-2025 End: 02-18-2025 Emergency department patient visit No Primary Care Physician -Emergency Department Work Phone: Start: 02-18-2025 End: 02-18-2025 [facility] Facility:[facility] Start: 02-18-2025 End: 02-18-2025 Patient encounter procedure Kinjal Grijalva PA-C Work Phone: [facility] Comment on above: Peripheral edema (Pr imary Dx) Start: 02-05-2025 End: 02-05-2025 Subsequent hospital visit by physician [facility] Work Phone: Radiology Comment on above: Acute cough [R05.1] Start: 02-05-2025 End: 02-05-2025 ambulatory ADELE MCCLURE Facility:[facility] Start: 02-05-2025 End: 02-05-2025 Patient encounter procedure Adele Mcclure AUTOMOTIVE INSTRUCTOR.BULL BUCKER Work Phone: [facility] Comment on above: Submental adenopathy (Primary Dx); Sore throat; Acute cough Start: 02-04-2025 End: 02-04-2025 Emergency department patient visit No Primary Care Physician -Emergency Department Work Phone: Start: 12-21-2024 End: 12-22-2024 Emergency department patient visit Norbertdomenico Maharaj DO -Emergency Department Work Phone: Start: 11-25-2024 End: 11-25-2024 Emergency department patient visit Dr. Victor Manuel Frank DO -Emergency Department Work Phone: Start: 10-27-2024 End: 10-27-2024 Emergency department patient visit Dr. Rio Norris DO -Emergency Department Work Phone: Start: 09-08-2024 End: 09-08-2024 Emergency department patient visit No Primary Care Physician Facility:[facility] Start: 08-23-2024 End: 08-23-2024 Emergency department patient visit No Primary Care Physician Facility:[facility] Start: 08-21-2024 End: 08-21-2024 Emergency department patient visit No Primary Care Physician Facility:[facility] Start: 08-13-2024 End: 08-13-2024 Emergency department patient visit No Primary Care Physician Facility:[facility] Start: 07-28-2024 End: 07-28-2024 Emergency department patient visit No Primary Care Physician Facility:[facility] Start: 05-02-2023 End: 05-02-2023 Emergency department patient visit [facility]-Emergency Department Start: 05-01-2023 End: 05-01-2023 Emergency department patient visit [facility]-Emergency Department Start: 10-22-2022 End: 10-22-2022 Emergency department patient visit [facility]-Emergency Department Procedures Date Procedure Procedure Detail Performing Clinician Start: 05-13-2025 Radiology Comparison study - date and time Germaine Kong MD Work Phone: Start: 05-03-2025 Estimated creatinine clearance Kinjal Triana DATA CODER OPERATOR-C Work Phone: Start: 05-03-2025 CT of soft tissues o f neck with contrast Kinjal Triana DATA CODER OPERATOR-C Work Phone: Start: 03-12-2025 Ct soft tissue neck w/o contrast material Ramón Miller DO Work Phone: Start: 02-28-2025 SKIN / NAIL BIOPSY Janett Aquino MD Work Phone: Start: 02-28-2025 Level iv surg pathol ogy gross&microscopic exam Rula Aquino MD Work Phone: Start: 02-18-2025 Urnls dip stick/tabl et reagent auto microscopy Kinjal Triana DATA CODER OPERATOR-C Work Phone: Start: 02-18-2025 Estimated creatinine clearance Kinjal Triana DATA CODER OPERATOR-C Work Phone: Start: 02-05-2025 Radiologic exam ches t 2 views Adele Mcclure AUTOMOTIVE INSTRUCTOR.BULL BUCKER Work Phone: Start: 02-05-2025 STREP A MOLECULAR (POC) Gabriella Robbins AUTOMOTIVE INSTRUCTOR.BULL BUCKER Work Phone: Start: 02-04-2025 SARS-CoV-2, Influenz a [...] Treatment Date Care Activity Detail Author Start: 02-23-2030 Lipid panel Cholesterol [facility] Start: 08-05-2026 Annual PCP Team Chronic Disease Visit Annual PCP Team Chronic Disease Visit [facility] Start: 06-21-2026 Hepatitis B surface antibody level LDL Cholesterol [facility] Start: 03-14-2026 Annual PCP Team Chronic Disease Visit Annual PCP Team Chronic Disease Visit [facility] Start: 03-04-2026 Annual PCP Team Chronic Disease Visit Annual PCP Team Chronic Disease Visit [facility] Start: 02-23-2026 Hepatitis B surface antibody level LDL Cholesterol [facility] Start: 02-22-2026 Annual PCP Team Chronic Disease Visit Annual PCP Team Chronic Disease Visit [facility] Start: 02-03-2026 End: 02-03-2026 Patient encounter procedure 02/03/2026 1:00 PM EDT Office Visit [facility] [address] [place] [address] Ramón Miller, DO [address] [place] [id number] DM check A1C [facility] Comment on above: DM check A1C Start: 11-04-2025 Hemoglobin A1c measurement HbA1C [facility] Start: 08-15-2025 End: 08-15-2025 Patient encounter procedure 08/15/2025 10:45 AM EDT Office Visit [facility] [address] [place] [address] Ramón Miller, DO [address] [place] [id number] skin tag removal [facility] Comment on above: skin tag removal Start: 08-05-2025 End: 08-05-2025 Patient encounter procedure 08/05/2025 11:15 AM EDT [facility] [facility] [address] [place] [address] Ramón Miller, DO [address] [place] [id number] f/u 3 month [facility] Comment on above: f/u 3 month Start: 07-29-2025 Influenza vaccination [facility] Start: 06-27-2025 End: 06-27-2025 Patient encounter procedure 06/27/2025 11:15 AM EDT Office Visit [facility] [address] [place] [address] Ramón Miller, DO [address] [place] [id number] f/u 3 month [facility] Comment on above: f/u 3 month Start: 06-13-2025 End: 06-13-2025 Patient encounter procedure 06/13/2025 11:15 AM EDT Office Visit [facility] [place] [address] [place] [address] Ramón Miller Chato [address] [place] [address] f/u 3 month [facility] [place] Comment on above: f/u 3 month Start: 06-03-2025 End: 09-02-2025 Hepatic function 2000 panel - Serum or Plasma HEPATIC FUNCTION PNL Lab Routine Mixed hyperlipidemia Expected: 06/03/2025, Expires: 09/02/2025 [facility] Comment on above: Expected: 06/03/2025, Expires: Start: 06-03-2025 End: 09-02-2025 Lipid 1996 panel - Serum or Plasma LIPID PANEL, FASTING Lab Routine Mixed hyperlipidemia Expected: 06/03/2025, Expires: 09/02/2025 [facility] Comment on above: Expected: 06/03/2025, Expires: Start: 06-03-2025 End: 09-02-2025 Thyrotropin [Units/volume] in Serum or Plasma THYROID STIMULATING HORMONE Lab Routine Other specified hypothyroidism Expected: 06/03/2025, Expires: 09/02/2025 [facility] Comment on above: Expected: 06/03/2025, Expires: Start: 06-03-2025 End: 06-03-2025 ambulatory 06/03/2025 8:15 AM EDT Results Only [facility] [address] [place] [address] [facility] Start: 05-26-2025 Hemoglobin A1c measurement HbA1C [facility] Start: 05-16-2025 End: 05-16-2025 ambulatory 05/16/2025 4:45 PM EDT Results Only [facility] [address] [place] [address] [facility] Start: 05-13-2025 End: 05-13-2025 Patient encounter procedure 05/13/2025 11:00 AM EDT Office Visit [facility] [address] [place] [address] Germaine Kong MD [address] [place] [address] [facility] ([facility]) Start: 05-10-2025 End: 05-10-2026 DOWNLOAD [facility] TO [facility] DOWN[facility] TO [facility] Routine Thyroglossal duct cyst Expected: 05/10/2025, Expires: 05/10/2026 [facility] [employer] [facility] Work Phone: Comment on above: Expected: 05/10/2025, Expires: Start: 05-03-2025 [facility] Start: 04-29-2025 Glaucoma screening Dilated Retinal Exam [facility] Comment on above: Postponed from 1982 (Currently Jill eduled) Start: 03-14-2025 End: 03-14-2025 Patient encounter procedure 03/14/2025 1:20 PM EDT Office Visit [address] [address] Nancy Doe, AUTOMOTIVE INSTRUCTOR.BULL BUCKER [address] [place] [address] New Patient/Establish care [facility] Comment on above: New Patient/Establish care Start: 03-14-2025 End: 03-14-2025 Patient encounter procedure 03/14/2025 11:15 AM EDT Office Visit [facility] [address] [address] Ramón Miller DO [address] [place] [address] f/u 3 weeks medication, bp check [facility] Comment on above: f/u 3 weeks medication, bp check Start: 03-12-2025 End: 03-12-2025 Patient encounter procedure Cat Scan Comment on above: Submental mass [R22.1] SOB (shortness of br eath) [R06.02] Start: 03-04-2025 End: 03-04-2025 Patient encounter procedure 03/04/2025 2:15 PM EDT Office Visit [facility] [address] [place] [address] Ramón Miller DO [address] [place] [address] DM f/u blood sugars running high [facility] Comment on above: DM f/u blood sugars running high Start: 03-04-2025 End: 06-03-2025 Microalbumin/Creatinine [Mass Ratio] in Urine ALBUMIN/CREATININE RATIO, URINE Lab Routine Type 2 diabetes mellitus without complication, without long-term current use of insulin (HCC) Expected: 03/04/2025, Expires: 06/03/2025 [facility] Work Phone: Comment on above: Expected: 03/04/2025, Expires: Start: 02-22-2025 End: 02-22-2025 Patient encounter procedure 02/22/2025 8:00 AM EDT Office Visit [facility] [address] [place] [address] Ramón Miller DO [address] [place] [address] New Patient Est care with PCP, Dm and high Blood Pressure, swollen feet [facility] Comment on above: New Patient Est care with PCP, Dm and hi gh Blood Pressure, swollen feet Start: 02-18-2025 [facility] Start: 02-04-2025 [facility] Start: 12-22-2024 [facility] Start: 12-21-2024 [facility] Start: 10-27-2024 [facility] Start: 07-29-2024 Covid-19 Vaccine ( season) Covid-19 Vaccine ( season) [facility] Start: 07-29-2024 Influenza vaccination Influenza Vaccine (#1) [facility] Start: 2022 Pneumococcal vaccination Pneumococcal Vaccine(s) (50+ yrs) (1 of 1 - PCV) [facility] Start: 2022 Pneumococcal Vaccine: 50+ (1 of 1 - PCV) Pneumococcal Vaccine: 50+ (1 of 1 - PCV) [facility] Start: 2022 Shingles (RZV) Vaccine (1 of 2) Shingles (RZV) Vaccine (1 of 2) [facility] Start: 2022 Shingrix Vaccine (1 of 2) Shingrix Vaccine (1 of 2) [facility] Start: 2017 Diabetes Screening Diabetes Screening [facility] Start: 2017 Screening for malignant neoplasm of colon [facility] Start: 2007 Lipid panel Lipid Screening [facility] Start: 1991 Hepatitis A (HAV) Vaccine (optional start 19+ years) Hepatitis A (HAV) Vaccine (optional start 19+ years) [facility] Start: 1991 Hepatitis B vaccination Hepatitis B (HBV) Vaccine (1 of 3 - 19+ 3-dose series) [facility] Start: 1991 Hepatitis B Vaccine (1 of 3 - 19+ 3-dose series) Hepatitis B Vaccine (1 of 3 - 19+ 3-dose series) [facility] Start: 1991 Pneumococcal Vaccine: 50+ (1 of 2 - PCV) Pneumococcal Vaccine: 50+ (1 of 2 - PCV) [facility] Start: 1991 Urine microalbumin profile DTaP,Tdap,Td Vaccine (1 - Tdap) [facility] Start: 1990 Anxiety Screening Anxiety Screening [facility] Start: 1990 BP Controlled (<130/80) BP Controlled (<130/80) [facility] Start: 1990 Depression Screening Depression Screening [facility] Start: 1990 Hepatitis C screening [facility] Start: 1990 HIV screening HIV Screening [facility] Start: 1990 Tdap Booster Tdap Booster [facility] Start: 1987 HIV screening HIV Test [facility] Start: 1982 Diabetic foot examination Diabetic Foot Exam [facility] Start: 1982 Glaucoma screening Dilated Retinal Exam [facility] Start: 1982 Hepatitis B screening Urine Albumin:Creatinine Ratio [facility] Start: 1972 Screening for malignant neoplasm of colon Colonoscopy [facility] End: 03-24-2026 CT Neck WO contrast CT NECK SOFT TISSUE WO IVCON Radiology Routine Submental mass 1 Occurrences starting 02/22/2025 until 03/24/2026 [facility] Comment on above: 1 Occurrences starting 02/22/2025 until 03/24/2026 End: 02-22-2026 Echocardiography ECHO Cardiology Routine SOB (shortness of breath) 1 Occurrences starting 02/22/2025 until 02/22/2026 [facility] Comment on above: 1 Occurrences starting 02/22/2025 until 02/22/2026 Patient Education [facility] Work Phone: Patient referral [facility] Work Phone: SLEEP STUDY ORDER NON [facility] SLEEP STUDY ORDER NON [facility] Procedures Routine Observed sleep apnea Ordered: 02/22/2025 [facility] Work Phone: Comment on above: Ordered: 02/22/2025 Payers Date Payer Category Payer [facility] [id number] 2024 Unknown [id number] 2024 Commercial Indemnity [employer] [id number] 2024 Unknown [id number] 2024 Self-pay [id number] 1972 Unknown [id number] 1972 Unknown [id number] Unknown [facility] [id number] Unknown [id number] 462 Unknown [id number] 462 Unknown [id number] 462 Unknown [id number] 462 Unknown [id number] 462 Unknown [id number] 462 Unknown [id number] 462 Unknown [id number] 462 Unknown [id number] 462 Unknown [id number] 462 Unknown [id number] 462 Social History Date Type Detail Facility Start: 10-22-2022 End: 05-02-2023 Tobacco smoking status NEIS Unknown if ever smoked [facility] Start: 12-18-2019 Heavy [facility] Start: 12-18-2019 Marijuana [facility] Start: 12-18-2019 Roommate [facility] Start: 12-18-2019 Cigarettes [facility] Start: 1970 Sex Assigned At Male [facility] Start: 02-05-2025 End: 02-22-2025 Tobacco smoking status NHIS Ex-smoker [facility] Work Phone: History of tobacco use Current smoker [facility] History of tobacco use Cigarette Smoker [facility] Start: 02-05-2025 End: 03-14-2025 Alcoholic beverage intake Ex-drinker (finding) [facility] Start: 02-05-2025 End: 02-28-2025 History of Social function [facility] Start: 02-05-2025 End: 02-28-2025 Tobacco use panel [facility] Start: 02-05-2025 Alcohol Comment Recovering Alcoholic [facility] Start: 1972 Sex assigned at Not on file [facility] Start: 02-04-2025 End: 05-09-2025 Sex Male (finding) [facility] Start: 02-22-2025 Tobacco use and exposure Smokeless tobacco non-user [facility] Start: 08-21-2024 Adult Depression Screening Assessment 0 [facility] Medical Equipment Procedure Code Equipment Code Equipment Origin al Text Equipment Identifier Dates Use to test bloo d sugar 3 times daily. [id number] Start: 02-22-2025 Use to test bloo d sugar 3 times daily. [id number] Start: 02-22-2025 1 each three gabe es a day with meals. Use with blood glucose test three times a day. Insulin Dep? Yes [id number] Start: 03-04-2025 End: 03-04-2026 Mental Status Date Assessment Result Facility 02-18-2025 Cognitive function Level Of Cons ciousness Awake;Alert;Appropriate;Follow s Commands [facility] Work Phone: 02-04-2025 Cognitive function Level Of Cons ciousness Awake;Alert;Appropriate;Follow s Commands [facility] Work Phone: 10-22-2022 Cognitive function Level Of Cons ciousness Awake;Alert;Appropriate;Follow s Commands [facility] Work Phone: Clinical Notes 02-05-2025 to 08-06-2025 Telephone Encounter - Shannan Almanzar - 08/06/2025 3:24 PM EDTTelephone Encounter - Shannan Almanzar - 08/06/2025 3:24 PM EDTTelephone Encounter - Natalia Alexander - 07/25/2025 2:55 PM EDT Note Date & Type Note Facility 08-06-2025 Telephone encounter Note Pt. Update 9.9.- Bariatric call no message [facility] 08-06-2025 Miscellaneous Notes Pt. Update 9.9.- Bariatric call no message documented in this encounter [facility] 08-05-2025 Note HNO ID: [id number] Author: RAMÓN MILLER, DO Service: ? Author Type: Physician Type: Progress Notes Filed: 08/14/2025 20:34 Note Text: Subjective The patient is a 54-year-old male with diabetes mellitus, hypertension, obstructive sleep apnea, and sciatica, presenting for hemoglobin A1c recheck. Diabetes: - Recent A1c was 9.4. - Jai denies alcohol consumption and smoking. - Recent dietary changes due to caring for a sick girlfriend. - Jai denies chest pain, pressure, SOB, nausea, vomiting, diarrhea, or constipation. Obesity: - Jai expresses desire to lose weight. - No known family history of obesity. Skin Tags: - Two skin tags under the left axilla; irritating but not infected. MARIMAR: - Using CPAP at night. Sciatica: - Recently started chiropractic treatment; has attended a couple of sessions. - Plans to begin bi-weekly sessions starting tomorrow with Dr. Carnes at [facility]. Review of Systems Cardiovascular: (-) chest pain, (-) chest pressure Respiratory: (-) shortness of breath Gastrointestinal: (-) nausea, (-) vomiting, (-) diarrhea, (-) constipation Skin: (+) irritated left axillary skin tags PAST MEDICAL HISTORY Diagnosis Date Diabetes (HCC) [...] Paternal Grandmother No Known Problems Paternal Grandfather SOCIAL HISTORY[1] Current Outpatient Medications Medication Sig metFORMIN (GLUCOPHAGE) 500 mg tablet Take 1 tablet by mouth every 12 hours. atorvastatin (LIPITOR) 40 mg tablet Take 1 tablet by mouth once daily. levothyroxine (SYNTHROID) 25 mcg tablet Take 1 tablet by mouth once daily. metoprolol succinate ER (TOPROL XL) 25 mg 24 hr tablet Take 1 tablet by mouth once daily. losartan-hydroCHLOROthiazide (HYZAAR) 100-25 mg per tablet Take 1 tablet by mouth once daily. metFORMIN ER (GLUCOPHAGE XR) 500 mg 24 hr tablet Take 2 tablets by mouth once daily. lancets (ULTRA THIN PLUS LANCETS) 33 gauge 1 each three times a day with meals. Use with blood glucose test three times a day. Insulin Dep? Yes Pramoxine-Hydrocortisone (ANALPRAM-HC) 1-1 % rectal cream by [...] No current facility-administered medications for this visit. Objective BP 140/84 (BP Site: Left Arm, BP Position: Sitting) Pulse 70 Temp 36.7 ?C (98 ?F) Ht 6' (1.829 m) Wt (!) 319 lb (144.7 kg) SpO2 95% BMI 43.26 kg/m? Physical Exam GENERAL: NAD, alert and oriented. SKIN: Two skin tags under the left axilla, no signs of infection. Otherwise unremarkable, no rash or skin lesions. HEAD: Normocephalic. EYES: PERRLA, EOMI, conjunctiva clear. EARS: External ears normal, canals clear, TM's normal. NOSE/SINUSES: Nares normal. Septum midline. OROPHARYNX: Lips, mucosa, and tongue normal, good dentition. No oral lesions noted. NECK: Supple, no lymphadenopathy, normal thyroid, no carotid bruits. LUNGS: Clear to auscultation bilaterally, no wheezes/rhonchi/rales. HEART: Regular rate and rhythm, no murmurs. No ectopy. EXTREMITIES: Normal, no deformities, no skin discoloration, no edema. NEURO: Awake, alert and oriented x3, cranial nerves II-XII grossly intact, normal gait, no involuntary motions. Labs: - Hemoglobin A1c: 9.4% Assessment AND Plan 1. Type 2 diabetes mellitus without complication, without long-term current use of insulin (HCC) (E11.9) 2. Type 2 diabetes mellitus with hyperglycemia, without long-term current use of insulin (HCC) (E11.65) - Recent A1c recheck was 9.4%. - Discussed the importance of weight loss and dietary changes in managing diabetes. 3. Screening for diabetic retinopathy (Z13.5) 4. Primary hypertension (I10) - Blood pressure rechecked at 120 mmHg. - Discussed the impact of diet and weight on blood pressure control. 5. Former smoker (Z87.891) 6. BMI 40.0-44.9, adult (HCC) (Z68.41) - Discussed (more content not included)... [facility] 08-05-2025 Note HNO ID: [id number] Author: PAUL, RAMÓN, DO Service: ? Author Type: Physician Type: Progress Notes Filed: 08/14/2025 20:34 Note Text: Subjective The patient is a 54-year-old male with diabetes mellitus, hypertension, obstructive sleep apnea, and sciatica, presenting for hemoglobin A1c recheck. Diabetes: - Recent A1c was 9.4. - Jai denies alcohol consumption and smoking. - Recent dietary changes due to caring for a sick girlfriend. - Jai denies chest pain, pressure, SOB, nausea, vomiting, diarrhea, or constipation. Obesity: - Jai expresses desire to lose weight. - No known family history of obesity. Skin Tags: - Two skin tags under the left axilla; irritating but not infected. MARIMAR: - Using CPAP at night. Sciatica: - Recently started chiropractic treatment; has attended a couple of sessions. - Plans to begin bi-weekly sessions starting tomorrow with Dr. Carnes at [facility]. Review of Systems Cardiovascular: (-) chest pain, (-) chest pressure Respiratory: (-) shortness of breath Gastrointestinal: (-) nausea, (-) vomiting, (-) diarrhea, (-) constipation Skin: (+) irritated left axillary skin tags PAST MEDICAL HISTORY Diagnosis Date Diabetes (HCC) [...] Paternal Grandmother No Known Problems Paternal Grandfather SOCIAL HISTORY[1] Current Outpatient Medications Medication Sig metFORMIN (GLUCOPHAGE) 500 mg tablet Take 1 tablet by mouth every 12 hours. atorvastatin (LIPITOR) 40 mg tablet Take 1 tablet by mouth once daily. levothyroxine (SYNTHROID) 25 mcg tablet Take 1 tablet by mouth once daily. metoprolol succinate ER (TOPROL XL) 25 mg 24 hr tablet Take 1 tablet by mouth once daily. losartan-hydroCHLOROthiazide (HYZAAR) 100-25 mg per tablet Take 1 tablet by mouth once daily. lancets (ULTRA THIN PLUS LANCETS) 33 gauge 1 each three times a day with meals. Use with blood glucose test three times a day. Insulin Dep? Yes Pramoxine-Hydrocortisone (ANALPRAM-HC) 1-1 % rectal cream by [...] blood sugar 3 times daily. Blood-Glucose Sensor (XplentySTYLE MALENA 3 PLUS SENSOR) bernabe Use to check blood sugar 3 times daily. meclizine (ANTIVERT) 25 mg tab TAKE 1 TABLET BY MOUTH FOUR TIMES DAILY NEEDED for dizziness No current facility-administered medications for this visit. Objective BP 140/84 (BP Site: Left Arm, BP Position: Sitting) Pulse 70 Temp 36.7 ?C (98 ?F) Ht 6' (1.829 m) Wt (!) 319 lb (144.7 kg) SpO2 95% BMI 43.26 kg/m? Physical Exam GENERAL: NAD, alert and oriented. SKIN: Two skin tags under the left axilla, no signs of infection. Otherwise unremarkable, no rash or skin lesions. HEAD: Normocephalic. EYES: PERRLA, EOMI, conjunctiva clear. EARS: External ears normal, canals clear, TM's normal. NOSE/SINUSES: Nares normal. Septum midline. OROPHARYNX: Lips, mucosa, and tongue normal, good dentition. No oral lesions noted. NECK: Supple, no lymphadenopathy, normal thyroid, no carotid bruits. LUNGS: Clear to auscultation bilaterally, no wheezes/rhonchi/rales. HEART: Regular rate and rhythm, no murmurs. No ectopy. EXTREMITIES: Normal, no deformities, no skin discoloration, no edema. NEURO: Awake, alert and oriented x3, cranial nerves II-XII grossly intact, normal gait, no involuntary motions. Labs: - Hemoglobin A1c: 9.4% Assessment AND Plan 1. Type 2 diabetes mellitus without complication, without long-term current use of insulin (HCC) (E11.9) 2. Type 2 diabetes mellitus with hyperglycemia, without long-term current use of insulin (HCC) (E11.65) - Recent A1c recheck was 9.4%. - Discussed the importance of weight loss and dietary changes in managing diabetes. 3. Screening for diabetic retinopathy (Z13.5) 4. Primary hypertension (I10) - Blood pressure rechecked at 120 mmHg. - Discussed the impact of diet and weight on blood pressure control. 5. Former smoker (Z87.891) 6. BMI 40.0-44.9, adult (HCC) (Z68.41) - Discussed the impact of weight on diabetes, hypertension, sleep apnea, and sciatica. - Referre (more content not included)... [facility] 07-25-2025 Telephone encounter Note Tried to call pt twice on 07/15/2025 and got msg to call another time. Metformin has been sent. Natalia Alexander [facility] 07-25-2025 Telephone encounter Note ----- Message from Glory El sent at 07/25/2025 12:24 PM EDT ----- Regarding: medicine/ramón miller/medication refill Subject Line Format: Medicine / [Provider Name] / [Issue] Select Primary Care Department Name For [place] Routing Assistance: [facility] [place] => [facility] [place] [facility] [[id number]] ======= Patient: No patient name on file. Date of : There is no date of on file. MRN: No patient ID available Primary Care Provider: No primary care provider on file. Patient has been identified by name and Date of (Y/N): y Patient: No patient name on file. Date of : There is no date of on file. MRN: No patient ID available Provider for this encounter: No primary care provider on file. Reason for the call/escalation: medication Was Patient Referred to [facility]/Seek Emergency Treatment (Y/N): na Did Patient Agree (Y/N): na Was An Attempt Made To Transfer The Patient To The Office (Y/N): na Were You Able To Reach Someone At The Office (Y/N): na If Yes - Patient Was Transferred To (Caregivers Name): na If No - Which [facility] Leadership Aws Architect Did You Speak With Regarding This Patient: na Was an appointment scheduled (Y/N): na Reason patient was requesting visit (RFV/signs and symptoms/diagnosis) : medication Person calling if other than patient: na Return call to if other than patient: na Best contact number: [phone] Thank you, Glory Calzada July 25, 2025 12:25 PM [facility] 07-25-2025 Miscellaneous Notes Tried to call pt twice on 07/15/2025 and got msg to call another time. Metformin has been sent. Natalia Alexander ----- Message from Glory El sent at 07/25/2025 12:24 PM EDT ----- Regarding: medicine/ramón paul/medication refill Subject Line Format: Medicine / [Provider Name] / [Issue] Select Primary Care Department Name For [place] Routing Assistance: [facility] [place] => [facility] [place] [facility] [[id number]] ======= Patient: No patient name on file. Date of : There is no date of on file. MRN: No patient ID available Primary Care Provider: No primary care provider on file. Patient has been identified by name and Date of (Y/N): y Patient: No patient name on file. Date of : There is no date of on file. MRN: No patient ID available Provider for this encounter: No primary care provider on file. Reason for the call/escalation: medication Was Patient Referred to 91/Seek Emergency Treatment (Y/N): na Did Patient Agree (Y/N): na Was An Attempt Made To Transfer The Patient To The Office (Y/N): na Were You Able To Reach Someone At The Office (Y/N): na If Yes - Patient Was Transferred To (Caregivers Name): na If No - Which [facility] Leadership Aws Architect Did You Speak With Regarding This Patient: na Was an appointment scheduled (Y/N): na Reason patient was requesting visit (RFV/signs and symptoms/diagnosis) : medication Person calling if other than patient: na Return call to if other than patient: na Best contact number: [phone] Thank you, Glory Calzada July 25, 2025 12:25 PM documented in this encounter [facility] 07-24-2025 Telephone encounter Note sent [facility] 07-24-2025 Miscellaneous Notes sent Medication pended off medication list. Spoke to patient in regards to their medication. Patient is requesting a refill of their Metformin 500 mg be sent to [facility] in [place]. Thanks. Avtar Romano documented in this encounter [facility] 07-23-2025 Telephone encounter Note Medication pended off medication list. [facility] 07-22-2025 Telephone encounter Note Spoke to patient in regards to their medication. Patient is requesting a refill of their Metformin 500 mg be sent to [facility] in [place]. Thanks. Avtar Romano [facility] 06-25-2025 Telephone encounter Note Spoke to Jai and let him know Dr. Miller would like him to remain on the current dose of medication for his cholesterol. Pt verbalized understanding and will be in to see Dr. Miller on for his follow up appt. [facility] 06-25-2025 Miscellaneous Notes Spoke to Jai and let him know Dr. Miller would like him to remain on the current dose of medication for his cholesterol. Pt verbalized understanding and will be in to see Dr. Miller on for his follow up appt. ----- Message from Ramón Miller DO sent at 06/25/2025 4:19 PM EDT ----- . Lipids dramatically improved. Stay on the present dose. documented in this encounter [facility] 06-25-2025 Telephone encounter Note ----- Message from Ramón Miller DO sent at 06/25/2025 4:19 PM EDT ----- . Lipids dramatically improved. Stay on the present dose. [facility] 05-13-2025 History of Presen t illness Narrative Patient was identified by name and date of . Pharmacy updated Vital signs taken Patient in exam room ready for MD. Princess Myles., MTA CC: anterior neck mass HPI: Jai Green is a 54 year old male referred from [facility] for anterior neck mass. Patient says he's had it for years, and it swells around once per year, usually in January-February. He's had a couple scans this year with it swollen. Right now he says it's not really there. Patient knows where it's at, and can feel it when he pushes on that spot, but it's not bothering him. Medical History[1] Surgical History[2] Allergies Patient has no allergy information on record. Medications No current outpatient medications on file. No current facility-administered medications for this visit. Family History The patient's family history is not on file.. Social History: Social History[3] Review of Systems - as per HPI, otherwise the balance of 10 systems is negative Physical Exam Pulse 64, temperature 97.4 F (36.3 C), temperature source Temporal, weight (!) 312 lb 11.2 oz (141.8 kg), SpO2 94%. General apperance: WN/WD adult in no apparent distress, sitting in a chair Ability to communicate: normal voice without hoarseness Head and Face: Atraumatic, normocephalic; skin with no masses or lesions; sinuses nontender to palpation, face symmetric with normal movement Salivary Glands: No enlargement or tenderness of parotid or submandibular glands Ears:External ears are intact without any lesions or masses. Eyes: EOM Intact, sclera anicteric, no conjunctival injection. Nose: External nose midlin Oral Cavity: Lips, gums, gingiva are normal; the floor of mouth and tongue are soft w/out lesions. Tongue protrusion is midline and non-tethered. Normal. Oropharynx: the soft palate, tonsils, and lateral pharyngeal campbell are without lesions or masses Neck: Very thick. Prominent submental area. Hard to feel a discrete mass on palpation today. CV: No clubbing/cyanosis/edema in hands Respiration: Breathing comfortably, no stridor or stertor Neuro: A&Ox3, Cranial nerves 2-12 intact and symmetric. Normal affect. In-office ultrasound Right at the hyoid, there could be a bit of a cyst that's hard to see with the stubble from his mosqueda interfering with imaging. CT Soft Tissue w/ Contrast 05/03/[address] Neck w/o Contrast 03/12/2025 IMPRESSION: No evidence of mass lesion or lymphadenopathy within the neck. Assessment/Recommendations: Jai Green is a 54 year old male who presents today for: 1. Possible thyroglossal duct cyst - Told him I will request the scans. - If it shows a thyroglossal duct cyst, we can plan to remove it. - If I can't clearly see it, we may need to hold off until his neck swells again, then try to address at that point. Electronically signed by Kenyon Briceño scribing for and in the presence of Dr. Germaine Kong on 05/13/2025 at 11:11 AM All medical record entries made by the scribe were at my direction and personally dictated by me. I have reviewed and edited the record and confirm that the note above accurately reflects all work, treatment, procedures, and medical decision making performed by me. Germaine Kong MD Cc: Nic Sunshine MD [1] No past medical history on file. [2] No past surgical history on file. [3] Social History Socioeconomic History Marital status: Unknown documented in this encounter [facility] 05-03-2025 Discharge summary [facility] 05-03-2025 Discharge summary Note Date/Time May 03, 2025 2:32pm [facility] Medical Records Department [address] [place] [address] Emergency Department Summary 05/03/25 MR#: [id number] Acct: [id number] Name: JAI GREEN Rep #:[id number] : 1970 54 From: Danish Li MD PCP: Dr. Sandy Miller, DO Status :REG ER Location: ED HPI History of Present Illness Chief Complaint: Sore Throat Detail of Chief Complaint: Patient has swelling in the submental area with change in voice. Informant: patient Onset/Context/Timing Onset: Today (Noted upon awakening. Patient had a presentation in November for swelling and workup was unremarkable.) Context: Sudden Onset Timing: Continuous Quality: Swelling submental region Location: Submental region Current Severity: Moderate Maximum Severity: Moderate Worsened by: Nothing Relieved by: Nothing Associated Symptoms Associated Symptoms: Change in voice and difficulty swallowing. Denies dental pain Narrative Narrative: Patient is a 54-year-old male. He has history of hypertension on amlodipine andlosartan hydrochlorothiazide combination. He is also on metformin. Patient hada similar presentation November of this year. He was treated for presumed infection. The CAT scan did not reveal any lymphadenopathy or evidence of soft tissue infection. Patient states he got better. Patient has never been on an DAGOBERTO inhibitor. Patient denies fever, chills night sweats. Patient denies dental pain. Patientdenies difficulty opening or closing his mouth. Patient denies cardiac or respiratory symptoms. Patient denies rash. Prior similar symptoms: Yes Recent Illness/Hospitalization: No PFSH PFSH Medical History [...] / Time No Known Allergies Allergy Verified 05/03/25 10:27 Family History no significant family his Social History household members: significant other Smoking Status: Former smoker substance use type: does not use ROS ROS ED Constitutional Constitutional ED: Denies chills, fever(s), subjective, sweats or weight loss Eyes Eyes: Denies blurry vision or change in vision ENT ENT ED: Reports sore throat and other Details: Patient complains of throat pain but he points to the submental region. He also endorses change in voice and difficulty swallowing. ; Denies ear pain or rhinorrhea Cardiovascular Cardiovascular: Denies chest pain or palpitations Respiratory/Chest Respiratory/Chest: Denies cough, dyspnea or dyspnea on exertion Gastrointestinal Gastrointestinal: Denies abdominal pain, nausea or vomiting Integumentary Denies rash Hematologic/Lymphatic Hematologic/Lymphatic: Reports systems reviewed and no addt'l complaints, exceptas documented EXAM Physical Exam Const Vital Signs: 05/03/25 10:27 05/03/25 12:26 Temperature 98.1 F 98.6 F Temperature Source Temporal Oral Pulse Rate 77 64 Respiratory Rate 14 18 Blood Pressure 150/89 H 155/94 H Blood Pressure Mean 109 114 Pulse Ox 92 97 Oxygen Delivery Method Room Air Room Air Positive well nourished and well developed Constitutional Narrative: BMI is 43.4. Patient has slightly hoarse voice. He patient has obvious weldingbetween the chin and larynx. General Appearance ED: well developed; Negative for pallor HEENT Reports moist mucous membranes HEENT Narrative: Patient has fillings noted. There is no evidence of a periodontal abscess. There is no fullness of the floor of the mouth. Eyes PERRL and EOMs intact bilaterally General Eye ED: Negative for pale conjunctiva or scleral icterus Neck no lymphadenopathy, supple and no JVD Neck Narrative: Patient has fullness and firmness submental region. No obvious dental pathologydoubt this to be Ludewig's angina. Trachea is midline. He has subtle inspiratory stridor. Chest Wall inspection of chest normal and palpation of chest normal Resp normal respiratory effort and clear to auscultation bilaterally Cardio regular rate, regular rhythm, S1 normal heart sound, S2 normal heart sound and no murmurs Extremity normal to inspection Extremity Narrative: There is no clubbing or cyanosis noted. General Extremety ED: Negative for edema or tenderness General Extremity: Negative for edema Neuro oriented x3 and CN's II-XII intact bilaterally Sensorium / Orientation: alert Psych mental status grossly normal Skin no rashes or lesions noted, no wounds and skin turgor normal General Skin Exam: elasticity normal; Negative for jaundice or pallor MDM MDM MDM Narrative Medical decision making narrative: Differential diagnosis is angioedema due to ARB, dental infection that is not obviously seen, soft tissue neck infection, swollen salivary gland. Will obtainCAT scan and appropriate blood work. If there is no evidence infection suspect this is due to ARB since he had a similar presentation with a normal CT earlier this year History & Record Review Additional record(s) reviewed:: Prior ED visit and Prior labs Lab Data Attestation: I reviewed the patient's lab results. Lab results narrative: CBC is unremarkable. Basic metabolic panel was elevated glucose of 208 with normal CO2 anion gap. Renal function is normal. Labs: Laboratory Results - last 24 hr 05/03/25 11:04 WBC 10.5 RBC 5.25 Hgb 15.8 Hct 49.3 MCV 93.9 MCH 30.1 MCHC 32.0 RDW Std Deviation 47.3 H RDW Coeff of Jamaal 13.6 Plt Count 182 MPV 10.8 Immature Gran % (Auto) 0.400 Neut % (Auto) 72.1 H Lymph % (Auto) 16.8 L Green % (Auto) 7.5 Eos % (Auto) 2.9 Baso % (Auto) 0.3 Absolute Neuts (auto) 7.6 Absolute Lymphs (auto) 1.77 Nucleated RBC % 0 Sodium 140 Potassium 4.3 Chloride 100 Carbon Dioxide 30.5 Anion Gap 9 BUN 18 Creatinine 0.93 Estim Creat Clear Calc 137.47 Est GFR (MDRD) Non-Af 99 BUN/Creatinine Ratio 19.0 Glucose 208 H Calcium 9.7 Radiography Diagnostic Testing: Clinical Impression(s) from Imaging Studies Soft Tissue Neck CT 05/03/25 10:42 IMPRESSION: 1. A heterogeneously enhancing lesion is demonstrated at the right tongue base. Direct visualization via endoscopy is recommended. Can not exclude carcinoma. 2. Stable mucoperiosteal retention cyst, left maxillary sinus. 3. Other nonacute findings detailed above. Reading Location: [place] [address] Management Discussion w/another healthcare provider: PCP (Spoke with Dr. Miller's nurse practitioner Gabbie. She was informed of patient's scan results. She put a consult in for ENT. Images were sent to [facility]. She willcontact patient for follow-up.) Treatment and Re-Evaluation :: Patient was informed of concern. He was informed that his doctor was contacted. They are making arrangements for ENT follow-up. Discharge Plan Triage Chief Complaint: Sore Throat ED Provider: Danish Li Dx/Rx/DC Orders Clinical Impression: Mass of tongue, Elevated blood pressure reading with diagnosis of hypertension,Type 2 diabetes mellitus Instructions: ED Tumor, Uncertain Cause Prescriptions: No Action amlodipine [Norvasc] 10 mg [...] Dizziness) Qty: 20 0RF Primary Care Provider: Sandy Miller Referrals: Sandy Miller, [Primary Care Provider] - As soon as possible Activity Restrictions/Additional Instructions: Spoke to Dr. Miller's nurse practitioner. She is contacting ENT to make a follow-up appointment for you. The CAT scan reveals an abnormality and there isconcerned this may represent cancer. You need to follow-up for outpatient workup Print Language: Jordanian Disposition Disposition: Home, Self Care What to do if you have Problems For any increased pain, shortness of breath, bleeding, nausea or vomiting, chestpain, or any unexpected problems, contact your Primary Care Provider. Call [facility] ([phone]) or report to the closest Emergency Room. Call 911 if necessary. 05/03/25 1432 <Electronically signed by Danish Li MD> Cosigner Signature (if applicable): CC: Dr. Sandy Miller DO ~ Signed [facility] Work Phone: 1(911) 154-266406-06-2025 Radiology Diagnostic study note [facility] Imaging Services [address] [place] [address] Soft Tissue Neck WITH Contrast MR#: [id number] Acct: [id number] Name: JAI GREEN Rep #: [id number] : 1970 M 54 From: Kate De La O MD PCP: Dr. Sandy Miller DO Status: REG ER Study:Soft Tissue Neck WITH Contrast Date of Exam: 05/03/25 Exam# [id number] Ordering Dr: Jaye Li MD PROCEDURE: SOFT TISSUE NECK WITH CONTRAST 05/03/2025 REASON FOR EXAM: SUBMENTAL SWELLING AND MILD DYSPHONIA AND DYSPHAGI TECHNIQUE: CT of the soft tissues of the neck from the orbits to the upper mediastinum withintravenous contrast. Contiguous axial scans of 2.5 mm slice thicknesses. Sagittal and coronal reconstruction images wereobtained. One or more dose reduction techniques were used (e.g., automated exposure control, adjustment of mAand/or kv according to patient size, use of iterative reconstruction technique). CONTRAST: Isovue-300. VOLUME: 100 ML RADIATION DOSE SUMMARY: DLP: 716.99 mGycm COMPARISON: CT neck dated 12/21/2024. FINDINGS: Airway: Unremarkable. Salivary glands: Unremarkable. Lymph nodes: No lymphadenopathy. Thyroid: No suspicious nodules or other abnormalities. Nasopharynx: Unremarkable. Oropharynx: A heterogeneously enhancing area is seen at the right tongue base onaxial image 58 measuring 2.4 x 1.9 cm. Hypopharynx: Unremarkable. Retropharyngeal space: Unremarkable. Perivertebral space: Unremarkable. Vasculature: Unremarkable. No aneurysms. Orbits: Normal Paranasal sinuses and mastoids: Stable mucoperiosteal retention cyst, left maxillary sinus. Lung apices: Unremarkable. Upper mediastinum: Unremarkable. Bones: Mild multilevel spondylosis Other: Artifact from dental enhancements. CT/Soft Tissue Neck WITH Contrast IMPRESSION: 1. A heterogeneously enhancing lesion is demonstrated at the right tongue base. Direct visualization via endoscopy is recommended. Can not exclude carcinoma. 2. Stable mucoperiosteal retention cyst, left maxillary sinus. 3. Other nonacute findings detailed above. Reading Location: [place] [address] CC: Dr. Sandy Miller DO; Dr. Danish Li MD ~ Food Service Helper: Signed [facility]04-17-2025 Telephone encounter Note* Telephone Encounter - Tony Paris - 03/14/2025 3:52 PM EDT Cpap submitted Via [employer]. [facility]04-17-2025 Miscellaneous Notes* Telephone Encounter - Tony Paris - 03/14/2025 3:52 PM EDT Cpap submitted Via [employer]. documented [facility]25 NoteHNO ID: [id number] Author: ?, ?, ? Service: ? Author [...] follow-up for any signs or symptoms of infection.[facility]04-17-2025 Procedure note* Tony Paris - 03/14/2025 3:25 PM EDT Location: left thigh and neck Patient presents for suture removal. The wound area was clean, dry, intact, and healing well with minimal erythema/tenderness and no discharge no warmth no tenderness no discharge . Contact dermatitis was absent . Sutures/rebel were removed without incident. Patient was advised to follow-up for any signs or symptoms of infection. [facility]04-17-2025 Procedure note* Tony Paris - 03/14/2025 3:25 PM EDT Location: left thigh and neck Patient presents for suture removal. The wound area was clean, dry, intact, and healing well with minimal erythema/tenderness and no discharge no warmth no tenderness no discharge . Contact dermatitis was absent . Sutures/rebel were removed without incident. Patient was advised to follow-up for any signs or symptoms of infection. documented in [facility]25 NoteHNO ID: [id number] Author: RAMÓN MILLER DO Service: ? Author Type: Physician Type: Progress Notes Filed: 03/26/2025 20:50 Note Text: [facility] [place] Ramón Miller DO [address] [place] [address] Date of Evaluation: 03/14/2025 Patient Name: Jai Green : 1970 Chief Complaint: Patient presents with: Results: CT results and echo results. Patient requesting skin biopsy results Follow Up: 3 week recheck Suture Removal: Placed 02/28/25 Subjective Mr. Green is a 54 year old male who presents with the following complaint(s): The history is provided by the patient. No operations lead was used. Suture Removal Chronicity: follow up [...] General: Lids are no (more content not included)...[facility] 03-14-2025 History of Present illness Narrative* Ramón Miller DO - 03/14/2025 11:11 AM EDT Images from the original note were not included. [facility] Etnacruz Miller DO [address] [facility] [place] [address] Date of Evaluation: 03/14/2025 Patient Name: Jai Green : 1970 Chief Complaint: Patient presents with: Results: CT results and echo results. Patient requesting skin biopsy results Follow Up: 3 week recheck Suture Removal: Placed 02/28/25 Subjective Mr. Green is a 54 year old male who presents with the following complaint(s): The history is provided by the patient. No operations lead was used. Suture Removal Chronicity: follow up [...] without pain and neck supple. No tenderness. Nospinous process tenderness. Thoracic back: Normal. Lumbar back: [...] [facility]) - ICD9: 250.00, ICD10: E11.9 - Barriers to control: diet adherence and lack of exercise - Continue current medications - Blood glucose monitoring on a three times daily schedule - Counseled on healthy diet and regular exercise - Discussed need for and benefit of weight loss. BMI 42.59 kg/(m^2) 3. 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 5. Visit for suture removal - ICD9: V58.32, ICD10: Z48.02 - sutures removed. See procedure note. 6. BMI 40.0-44.9, adult ([facility]) - ICD9: V85.41, ICD10: Z68.41 Ramón Miller DO Return in about 3 months (around 06/13/2025) for Blood pressure check, diabetic follow-up. Attestation: Scribe Attestation: The patient is seen and examined by Dr. Miller and the following reflects his/her service. Scribed by Faith Henderson March 14, 2025 11:16 AMProvider Attestation: I, Ramón Miller DO personally performed the services described in this documentation. All medical record entries made by the scribe were at my direction and in my presence. I have reviewed the chart and discharge instructions (if applicable) and agree that the record reflects my personal per formance and is accurate and complete. Electronically Signed: Ramón Miller DO, March 14, 2025 11:26 AM documented in [facility] History of Present illness Narrative* Angela Zamora RT(R) - 03/12/2025 10:40 AM EDT Radiology Service Progress Note PATIENT NAME: [...] PATIENT PRESENTS WITH AN IMPLANTABLE OR ATTACHED PHYSICIST ASTROPHYSICS: No RADIOLOGY DEPARTMENT: CT; Exam(s) Completed: Neck PERIPHERAL IV DATA: Not applicable SIGNED BY: RT Anahi(Myrna) March 12, 2025 12:24 PM documented in this encounterOhio [facility]04-[facility]-2025 NoteHNO ID: [id number] Author: ANGELA ZAMORA RT(R) Service: ? Author Type: Cloth Washer Operator Type: Progress Notes Filed: 03/12/2025 12:25 Note [...] PATIENT PRESENTS WITH AN IMPLANTABLE OR ATTACHED PHYSICIST ASTROPHYSICS: No RADIOLOGY DEPARTMENT: CT; Exam(s) Completed: Neck PERIPHERAL IV DATA: Not applicable SIGNED BY: RT Anahi(R) March 12, 2025 12:24 [facility]04-11-2025 Telephone encounter Note* Telephone Encounter - Fletcher Johnson LPN - 03/08/2025 4:11 PM EDT JAI GREEN (German: [id number]) Ozempic (0.25 or 0.5 MG/DOSE) 2MG/3ML pen-injectors Form [employer] Electronic PA Form (2016 [employer]) Created 2 hours ago Sent to Plan 2 hours ago Plan Response 2 hours ago Submit Clinical Questions 2 hours ago Determination Favorable 1 hour ago Message from Plan Your PA request has been approved. Additional information will be provided in the approval communication. (Message 1148). Authorization Expiration Date: March 07, 2028. [facility]04-11-2025 Miscellaneous Notes* Telephone Encounter - Fletcher Johnson LPN - 03/08/2025 4:11 PM EDT JAI GREEN (German: [id number]) Ozempic (0.25 or 0.5 MG/DOSE) 2MG/3ML pen-injectors Form [employer] Electronic PA Form (2016 NCPDP) Created 2 hours ago Sent to Plan 2 hours ago Plan Response 2 hours ago Submit Clinical Questions 2 hours ago Determination Favorable 1 hour ago Message from Plan Your PA request has been approved. Additional information will be provided in the approval communication. (Message 1148). Authorization Expiration Date: March 07, 2028. * Telephone Encounter - Fletcher Johnson LPN - 03/08/2025 2:42 PM EDT JAI GREEN (German: [id number]) Ozempic (0.25 or 0.5 MG/DOSE) 2MG/3ML pen-injectors Form [employer] Electronic PA Form (2017 [facility]) Created 41 minutes ago Sent to Plan 31 minutes ago Plan Response 31 minutes ago Submit Clinical Questions 4 minutes ago Determination Wait for Determination Please [facility] a determination. documented in this [facility] Telephone encounter Note * Telephone Encounter - Fletcher Johnson LPN - 03/08/2025 2:53 PM EDT Prior authorization resubmitted to insurance with lab results [facility]04-11-2025 Miscellaneous Notes* Telephone Encounter - Fletcher Johnson LPN - 03/08/2025 2:53 PM EDT Prior authorization resubmitted to insurance with lab results * Telephone Encounter - Ramón Miller DO - 03/08/2025 11:03 AM EDT Dont understand * Telephone Encounter - Shari Meier LPN - 03/06/2025 2:17 PM EDT Prior auth submitted through [employer] for Ozempic. Insurance denied Ozempic. Paper copy to be scanned into chart or document attached to medication in medication tab. Please advise. documented in this encounterOhio [facility]04[facility]25 Telephone encounter Note * Telephone Encounter - Fletcher Johnson LPN - 03/08/2025 2:42 PM EDT JAI GREEN (German: [id number]) Ozempic (0.25 or 0.5 MG/DOSE) 2MG/3ML pen-injectors Form [employer] Electronic PA Form (2017 [facility]) Created 41 minutes ago Sent to Plan 31 minutes ago Plan Response 31 minutes ago Submit Clinical Questions 4 minutes ago Determination Wait for Determination Please wait for [facility] to return a determination. [facility]04-[facility] Telephone encounter Note* Telephone Encounter - Ramón Miller DO - 03/08/2025 11:03 AM EDT Dont understand [facility]04-09-2025 Telephone encounter Note* Telephone Encounter - Shari Meier LPN - 03/06/2025 2:17 PM EDT Prior auth submitted through [employer] for Ozempic. Insurance denied Ozempic. Paper copy to be scanned into chart or document attached to medication in medication tab. Please advise. [facility]04-07-2025 NoteHNO ID: [id number] Author: RAMÓN MILLER DO Service: ? Author Type: Physician Type: Progress Notes Filed: 03/06/2025 21:28 Note Text: [facility] DO Paul [address] [place] [address] Date of Evaluation: 03/04/2025 Patient Name: Jai [...] tablet by mouth onc (more content not included)...[facility]04-07-2025 History of Present illness Narrative* Ramón Miller, - 03/04/2025 3:08 PM EDT Images from the original note were not included. [facility] Etnacruz Miller DO [address] [place] [address] Date of Evaluation: 03/04/2025 Patient Name: Jai [...] Neurological: Negative for dizziness, tremors, seizures, weakness, light- headedness, numbness and headaches. Hematological: Does not bruise/bleed [...] without pain and neck supple. No tenderness. Nospinous process tenderness. Thoracic back: Normal. Lumbar back: [...] insulin (HCC) - ICD9: 250.00, ICD10: E11.9 (primary diagnosis) [...] March 04, 2025 3:21 PMProvider Attestation: I, Ramón Miller, DO personally performed the services described in this documentation. All medical record entries made by the scribe were at my direction and in my presence. I have reviewed the chart and discharge instructions (if applicable) and agree that the record reflects my personal per formance and is accurate and complete. Electronically Signed: Ramón Miller DO, March 04, 2025 9:28 PM documented in this [facility] Instructions* Patient Instructions* Michelle Esquivel OCCA - 02/28/2025 12:30 PM [...] or concerns, please contact the office at [phone]. documented in this encounterOhio State [facility]ing Hospital04-03-2025 NoteHNO ID: [id number] Author: RULA AQUINO MD Service: ? 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 Blood-Glucose Sensor (XplentySTYLE MALENA 3 PLUS SENSOR) bernabe Use to [...] scarring and infectio (more content not included)... 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 Blood-Glucose Sensor (XplentySTYLE MALENA 3 PLUS SENSOR) bernabe Use to [...] with white micaceous scale involving anterior legs andhands Neck - Posterior Indurated erythematous plaques Left [...] possible side effects of over use including skinthinning, atrophy, telangiectasias, and striae. 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 Based on history, clinical presentation, and/or distribution, favor scleredema. Differential diagnoses include other sclerosing disorders. Potential etiology, course, prognosis, andtreatment option(s) reviewed. Risks and benefits of trial [...] and ROS that were documented by my surgical services assistant, who was scribing during the encounter, were confirmed by me and I agree with the content of these sections. I have made any required additions or deletions to the HPI/PFSH/ROS as needed. The physical exam and any procedures were performed by me, unless otherwise noted. Rula Aquino MD documented [place] [address]-[place]2025 NoteHNO ID: [id number] Author: RAMÓN MILLER DO Service: ? Author Type: Physician Type: Progress Notes Filed: 03/06/2025 17:45 Note Text: [facility] [place] Ramón Miller DO [address] [place] [address] Date of Evaluation: 02/22/2025 Patient Name: Jai [...] history is provided by the patient. No operations lead was used. Hypertension This is a chronic [...] Extraocular movements int (more content not included)... [facility]03-28-2025 History of Present illness Narrative* Ramón Miller DO - 02/22/2025 8:23 AM EDT Images from the original note were not included. [facility] [place] Ramón Miller, DO [address] [place] [address] Date of Evaluation: 02/22/2025 Patient Name: Jai [...] history is provided by the patient. No operations lead was used. Hypertension This is a chronic [...] adult (HCC) - ICD9: V85.41, ICD10: Z68.41 Ramón Miller DO Return in about 3 weeks (around 03/15/2025) for medication follow up, Blood pressure check. Attestation: Scribe Attestation: The patient is seen and examined by Dr. Miller and the following reflects his/her service. Scribed by Faith Henderson February 22, 2025 8:36 AMProvider Attestation: I, Ramón Miller DO personally performed the services described in this documentation. All medical record entries made by the scribe were at my direction and in my presence. I have reviewed the chart and discharge instructions (if applicable) and agree that the record reflects my personal per formance and is accurate and complete. Electronically Signed: Ramón Miller DO, February 22, 2025 8:55 AM documented in this encounterOhio [facility]ing Hospital03-24-[facility]25 Discharge summary [facility] Medical Records Department [address] [place] [address] Emergency Department Summary 02/18/25 MR#: [id number] Acct: [id number] Name: JAI GREEN Rep #:[id number] 1 : 1970 54 From: Danish Li MD PCP: TREE Hawthorne Status:REG ER Location: ED HPI History of Present Illness Chief Complaint: Edema Detail of Chief Complaint: Patient presents with edema of his lower extremities for the past coupleof Informant: patient Onset/Context/Timing Onset: Days Context: Sudden [...] he stands and walks a lot. He deniesorthopnea orPND. He denies cardiac disease or anginal [...] to inspection, nondistended, normoactive bowel sounds, non-tender, non- distended and no masses; Negative for hepatosplenomegaly Palpation: [...] % (Auto) 61.6 Lymph % (Auto) 24.3 Green % (Auto) 8.7 Eos % (Auto) 4.4 [...] Clarity Clear Urine pH 5.0 Ur Specific [place] 1.025 Urine Protein 30 H Urine Glucose [...] Care Provider: Kinjal Triana Referrals: Kinjal Triana, TREE [Primary Care Provider] - 1 Week Print Language: Jordanian Disposition Disposition: Home, Self Care What to do if you have Problems For any increased pain, shortness of breath, bleeding, nausea or vomiting, chestpain, or any unexpected problems, contact your Primary Care Provider. Call [facility] ([phone]) or report tothe closest Emergency Room. Call 911 if necessary. 02/18/253 Cosigner Signature (if applicable): CC: TREE Triana ~ Signed [facility]03-24-2025 NoteHNO ID: [id number] Author: KINJAL GRIJALVA PA-C Service: ? Author Type: Physician Binding Stitcher Type: Progress Notes Filed: 02/18/2025 15:24 Note Text: This note was created using Tesseract Interactiveriter. Subjective Jai Green is a 54 year [...] report immediately to the emergency department at [facility]. Edema Review of Systems Objective BP 132/74 Pulse 88 Temp 37 ?C (98.6 ?F) Resp 18 Wt (!) 143.6 kg (316 lb 9.3 oz) SpO2 96% Physical Exam Assessment and [facility]03-24-2025 History of Present illness Narrative* Kinjal Grijalva PA-C - 02/18/2025 3:22 PM EDT This note was created using NoteWriter. Subjective Jai Green is a 54 year [...] testing and other management is available. Patient v erbalizes agreement with this recommendation and states he will report immediately to the emergencydepartment at [facility]. Edema Review of Systems Objective BP 132/74 Pulse 88 Temp 37 C (98.6 F) Resp 18 Wt (!) 143.6 kg (316 lb 9.3 oz) SpO2 96% Physical Exam Assessment and Plan documented in this encounterOhio State [facility]ing Hospital03-24-2025 Discharge summary Author Danish Li [facility] Note Date/Time February 18, 2025 6:1 3pm [facility] Medical Records Department [address] [place] [address] Emergency Department Summary 02/18/25 MR#: [id number] Acct: [id number] Name: JAI GREEN Rep #:[id number] 1 : 1970 54 From: Danish Li MD PCP: TREE Hawthorne Status:REG ER Location: ED [...] % (Auto) 61.6 Lymph % (Auto) 24.3 Green % (Auto) 8.7 Eos % (Auto) 4.4 [...] Clarity Clear Urine pH 5.0 Ur Specific [place] 1.025 Urine Protein 30 H Urine Glucose [...] Care Provider: Kinjal Triana Referrals: Kinjal Triana, TREE [Primary Care Provider] - 1 Week Print Language: Jordanian Disposition Disposition: Home, Self Care What to do if you have Problems For any increased pain, shortness of breath, bleeding, nausea or vomiting, chestpain, or any unexpected problems, contact your Primary Care Provider. Call [facility] ([phone]) or report to the closest Emergency Room. Call 911 if necessary. 02/18/251812 <Electronically signed by Danish Li MD> Cosigner Signature (if applicable): CC: TREE Triana ~ Signed [facility] Work Phone: 1(461) 301-632203-11-2025 Instructions* Patient Instructions* Adele Mcclure APRN.BULL BUCKER - 02/05/2025 5:21 PM EDT COUGH: Your [...] or other serious complaints. documented in this encounterOhio State [facility]ing Hospital03-11-2025 History of Present illness Narrative* Sandra [...] PATIENT PRESENTS WITH AN IMPLANTABLE OR ATTACHED PHYSICIST ASTROPHYSICS: No RADIOLOGY DEPARTMENT: General X-ray: Exam(s) Completed: Chest X-Ray PERIPHERAL IV DATA: Not applicable SIGNED BY: Ifrah Rees February 05, 2025 4:36 PM documented in this encounterOhio State Harding Hospital03-11-2025 NoteHNO ID: [id number] Author: SANDRA VILLALOBOS Tech Service: ? Author [...] PATIENT PRESENTS WITH AN IMPLANTABLE OR ATTACHED PHYSICIST ASTROPHYSICS: No RADIOLOGY DEPARTMENT: General X-ray: Exam(s) Completed: Chest X-Ray PERIPHERAL IV DATA: Not applicable SIGNED BY: Ifrah Rees February 05, 2025 4:36 [facility]03-11-2025 NoteHNO ID: [id number] Author: ADELE MCCLURE APRN.BULL BUCKER Service: ? Author Type: Nurse Practitioner Type: [...] primary care and has gone to the [facility] for care and blood pressure management. Denies [...] tenderness or frontal sinus tenderness. Mouth/Throat: Lips: [place]. Mouth: Mucous membranes are moist. No injury, [...] - Appointment made with Nancy Doe in [place] for 03/14/2025 - Start taking DOXYCYLINE 100MG [...] radiographic abnormality. Prescription ins (more content not included)...[facility] 02-05-2025 History of Present illness Narrative* Adele Mcclure, RODRI.BULL BUCKER - 02/05/2025 4:32 PM EDT Images from [...] primary care and has gone to the [facility] for care and blood pressure management. Denies [...] tenderness or frontal sinus tenderness. Mouth/Throat: Lips: [place]. Mouth: Mucous membranes are moist. No injury, [...] - Appointment made with Nancy Doe in [place] for 03/14/2025 - Start taking DOXYCYLINE 100MG [...] to treatment plan. Fani Diaz TEACHING PROVIDER (Physician/PA/AUTOMOTIVE INSTRUCTOR) NOTE OF PERSONAL INVOLVEMENT IN CARE: I have personally seen and examined the patient and performed the medical decision-making components. I have reviewed the Advanced Practice Registered Nurse (AUTOMOTIVE INSTRUCTOR) Student's documentation and verified the findings in the note as written. Any additions or changes are noted in bold/italics. Signature: Adele Mcclure Date: 02/05/2025 Time: 6:05 PM documented in this encounterOhio [facility] Author Dr. Frank [facility] May 01, 2023 1:55pm Note Date/Time May 01, 2023 1:14p m [facility] Medical Records Department [address] [place] [address] Emergency Department Summary 05/01/23 MR#: [id number] Acct: [id number] Name: JAI GREEN Rep #:[id number] 0 : 1970 52 From: Victor Manuel El PCP: Care Physician,No Primary Status :REG ER Location: ED HPI History of Present Illness Chief Complaint: Dental PFSH PFSH Medical History (Updated 05/01/23 @ 13:[address] Victor Manuel Frank, DO) No previous significant medical history Pancreatitis Home [...] Ox 93 Oxygen Delivery Method Room Air [facility] MDM Narrative Medical decision making narrative: HISTORY [...] pain External records reviewed:No recent ED visits MDM Narrative: The patient was hemodynamically stable, afebrile, nontoxic-appearing. Exam not consistent with dental abscess I considered the following differential diagnosis: Dental abscess, ANUG, Ludewig's angina, RPA, PRIVATE INQUIRY AGENT, dental caries, gingivitis Exam most consistent with dental infection. No evidence of Moreno's angina, RPA, PRIVATE INQUIRY AGENT, ANUG or dental abscess. Patient was given [...] your Primary Care Provider. Call [facility] ([phone]) or report to the closest Emergency Room. Call 911 if necessary. 05/01/23 1355 <Electronically signed by Victor Manuel Frank DO> Cosigner Signature (if applicable): CC: No Primary Care Physician ~ Signed [facility] Work Phone: Discharge summary Author Dr. Li [facility] May 02, 2023 2:55am Note Date/Time May 02, 2023 2:51a m [facility] Medical Records Department [address] [place] [address] Emergency Department Summary 05/02/23 MR#: [id number] Acct: [id number] Name: JAI GREEN Rep #:[id number] : 1970 52 From: Danish Li [...] Prior similar symptoms: Yes [facility] Medical History No previous significant medical history [...] your Primary Care Provider. Call [facility] ([phone]) or report to the closest Emergency Room. Call 911 if necessary. 05/02/23 0255 <Electronically signed by Danish Li MD> Cosigner Signature (if applicable): CC: No Primary Care Physician ~ Signed [facility] Work Phone: Evaluation noteNo assessment information available [facility] Work Phone: Evaluation note* Diagnosis Submental adenopathy- Primary Enlargement of lymph nodes Sore throat Acute pharyngitis Acute cough Acute cough [facility] Diagnosis Acute cough [facility]* Diagnosis Peripheral edema- Primary Edema documented in this encounter [facility] note* Diagnosis APPOINTMENT CANCELLED- Primary documented in this encounter [facility] note* Diagnosis Uncontrolled hypertension- Primary Unspecified essential hypertension Type 2 diabetes mellitus without complication, without long-term current use of insulin ([facility]) SOB (shortness of breath) Shortness of breath [...] neoplasm of prostate [facility]* Diagnosis Type 2 diabetes mellitus without [...] atrophic condition of skin BMI 40.0-44.9, adult (HCC) Body Mass Index 40.0-44.9, adult documented [facility] encounter [facility]* Diagnosis Submental mass Swelling, mass, or lump in head and neck [facility] Primary hypertension- Primary Unspecified essential hypertension Type 2 diabetes mellitus without complication, without long-term current use of insulin (HCC) MARIMAR (obstructive sleep apnea) Obstructive sleep apnea (adult) (pediatric) Scleromyxedema Other specified hypertrophic and atrophic condition of skin Visit for suture removal Encounter for removal of sutures BMI 40.0-44.9, adult (HCC) Body Mass Index 40.0-44.9, adult documented [facility] this encounter [facility]* Diagnosis Rash and nonspecific skin eruption- Primary Rash and other nonspecific skin eruption Skin neoplasm Neoplasm of unspecified nature of bone, soft tissue, and skin Psoriasis vulgaris [L40.0] Other psoriasis [facility]* Diagnosis 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 [facility] Diagnosis Neck mass- Primary Swelling, mass, or lump in head and neck [facility]* Diagnosis Neck mass Swelling, mass, or lump in head and neck 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 Please maintain hydration. You may return to work next week. Please return for any worsening symptoms.[facility] Work Phone: Hospital Discharge instructions [...] care physician for further outpatient evaluation and management.[facility] Work Phone: Hospital Discharge instructions Additional Instructions Contact dentist on the list you were given starting later this morning. If you have drooling, change in voice or difficulty breathing return to the emergency department immediately Take antibiotics until gone Take pain medicine as prescribedWMadison Health Work Phone: Hospital Discharge instructions Additional Instructions I prescribed meclizine which you take as needed for vertigo. Follow-up with your primary care doctor.[facility] Work Phone: Hospital Discharge instructions Additional Instructions Spoke to Dr. Miller's nurse practitioner. She is contacting ENT to make a follow-up appointment for you. The CAT scan reveals an abnormality and there is concerned this may represent cancer. You need to follow-up for outpatient workupWMadison Health Work Phone: Reason for referral (narrative)No reason for referral information availableWMadison Health Work Phone: Reieaf for visit Narrative* MRI/CAT Scan (Routine) - Closed Specialty Diagnoses / Procedures Referred By Zen segura Referred To Contact Radiology Diagnoses Neck mass Procedures CT NEURO IMAGE IMPORT(ALANNA) Germaine Kong MD [address] [place] [address] Phone: tel: fax: [facility] CT SCAN Phone: tel: Referral ID Status Reason Start Date Expiration Date Visits Re quested Visits Authorized [id number] Closed 05/13/2025 05/13/2026 1 1 [facility] Chief Complaint and Reason for Visit Chief [...] BILATERAL LEG SWELLING February 18, 2025 3:29pm Chief Complaint Admit Date general illness February 04, 2025 5:0 2pm BILATERAL LEG SWELLING February 18, 2025 3:29pm SORE THROAT May 03, 2025 10:27 am Family History No Family History Records Found Relationship Condition Age at Onset Recorded Date/T santiago Unknown Family History?- Unknown November 4:42am Family History?Diabetes Unknown 2019 4:42am Relationship Condition Age at Onset Recorded Date/T santiago Unknown Family History?- Unknown November 5:42am Family History?Diabetes Unknown 2019 5:42am Advance Directives No Advanced Directives Records Found Advance Directive Response Recorded Date/ Time Living Will No October 22, 4:52pm Power of Fieldwork Coordinator No October 22, 2022 4:52pm Advance Directive Response Recorded Date/ Time Living Will No May 01, 2023 1 2:56pm Power of Fieldwork Coordinator No May 01, 2023 12:56pm Advance Directive Response Recorded Date/ Time Living Will No May 02, 2023 2 :36am Power of Fieldwork Coordinator No May 02, 2023 2:36am Advance Directive Response Recorded Date/ Time Living Will No November 25 9:49pm Power of Fieldwork Coordinator No November 25, 2024 9:49pm Living Will No October 27, 024 6:39pm Power of Fieldwork Coordinator No October 27, 2024 6:39pm Living Will No December 22 12:09am Power of Fieldwork Coordinator No December 22, 2024 12:09am Living Will No February 04, 2025 5:51pm Power of Fieldwork Coordinator No February 04 5:51pm Advance Directive Response Recorded Date/ Time Living Will No November 25, 9:49pm Do you have a Healthcare Power of Fieldwork Coordinator? No November 25, 2024 9:49pm Living Will No February 18, 2025 3:59pm Do you have a Healthcare Power of Fieldwork Coordinator? No February 18, 2025 3:59pm Living Will No October 27, 6:39pm Do you have a Healthcare Power of Fieldwork Coordinator? No October 27, 2024 6:39pm Living Will No December 22 12:09am Do you have a Healthcare Power of Fieldwork Coordinator? No December 22, 2024 12:09am Living Will No February 04, 2025 5:51pm Do you have a Healthcare Power of Fieldwork Coordinator? No February 04, 2025 5:51pm Advance Directive Response Recorded Date/ Time Living Will No February 18, 2025 3:59pm Do you have a Healthcare Power of Fieldwork Coordinator? No February 18, 2025 3:59pm Do you have a Healthcare Power of Fieldwork Coordinator? No May 03, 2025 10:31am Living Will No February 04, 2025 5:51pm Do you have a Healthcare Power of Fieldwork Coordinator? No February 04, 2025 5:51pm Summary Purpose [...] Care Provider Active Dr. Victor Manuel Frank DO Emergency Provider Active Team Status: Inactive Member Role Status Dates No Primary Care Physician Primary Care Provider Active Dr. Danish Li MD Emergency Provider Active Team Status: Active Member Role Status Dates Kinjal PARRY, DATA CODER OPERATOR-C Primary Care Provider Active Team Status: Inactive Member Role Status Dates No Primary Care Physician Primary Care Provider Active Start: October 27, 2024 End: October 27, 2024 Dr. Rio Norris DO Attending Provider Active Start : October 27, 2024 End: October 27, 2024 Dr. Rio Norris DO Emergency Provider Active Start : October 27, 2024 End: October 27, 2024 Team Status: Inactive Member Role Status Dates No Primary Care Physician Primary Care Provider Active Start: November 25, 2024 End: November 25, 2024 Dr. Victor Manuel Frank DO Attending Provider Active Start: November 25, 2024 End: November 25, 2024 Dr. Victor Manuel Frank DO Emergency Provider Active Start: November 25, 2024 End: November 25, 2024 Team Status: Inactive Member Role Status Dates Kinjal PARRY, DATA CODER OPERATOR-C Primary Care Provider Active Start: December 21, 2024 End: December 22, 2024 Dr. Norbert Maharaj DO Attending Provider Active Start: December 21, 2024 End: December 22, 2024 Dr. Norbert Maharaj , Emergency Provider Active Start: December 21, 2024 End: December 22, 2024 Team Status: Inactive Member Role Status Dates Kinjal Kong PARRY, DATA CODER OPERATOR-C Primary Care Provider Active Start: February 04, 2025 End: February 04, 2025 Dr. Rio Norris DO Emergency Provider Active Start : February 04, 2025 End: February 04, 2025 Team Status: Inactive Member Role Status Dates Kinjal Kong PARRY, DATA CODER OPERATOR-C Primary Care Provider Active Start: February 04, 2025 End: February 04, 2025 Dr. Rio Norris DO Attending Provider Active Start : February 04, 2025 End: February 04, 2025 Dr. Rio Norris DO Emergency Provider Active Start : February 04, 2025 End: February 04, 2025 Team Status: Inactive Member Role Status Dates Kinjal Kong MONTIELC, DATA CODER OPERATOR-C Primary Care Provider Active Start: February 18, 2025 End: February 18, 2025 Dr. Danish Li MD Emergency Provider Active Sta rt: February 18, 2025 End: February 18, 2025 Aws Architect Relationship Specialty Start Date End Date Ramón Miller DO [address] [place] [id number] PCP - General Family Medicine 02/22/25 Aws Architect Relationship Specialty Start Date End Date Ramón Miller DO [address] [place] [id number] PCP - General Family Medicine 02/22/25 Aws Architect Relationship Specialty Start Date End Date Ramón Miller DO [address] [place] [address] PCP - General Family Medicine 02/22/25 Aws Architect Relationship Specialty Start Date End Date Ramón Miller DO [address] [place] [address] PCP - General Family Medicine 02/22/25 Aws Architect Relationship Specialty Start Date End Date PaulRamón mendoza DO [address] [place] [address] PCP - General Family Medicine 02/22/25 Aws Architect Relationship Specialty Start Date End Date Ramón Miller DO [address] [place] [address] PCP - General Family Medicine 02/22/25 Aws Architect Relationship Specialty Start Date End Date PaulRamón [address] [place] [address] PCP - General Family Medicine 02/22/25 Aws Architect Relationship Specialty Start Date End Date Ramón Millershanice [address] [place] [address] PCP - General Family Medicine 02/22/25 Aws Architect Relationship Specialty Start Date End Date PaulRamón [address] [place] [address] PCP - General Family Medicine 02/22/25 Aws Architect Relationship Specialty Start Date End Date PaulRamón [address] [place] [address] PCP - General Family Medicine 02/22/25 Aws Architect Relationship Specialty Start Date End Date PaulNickiRamón Chato, [address] [place] [address] PCP - General Family Medicine 02/22/25 Team Status: Active Member Role Status Dates Dr. Sandy Miller DO Primary Care Provider Acti ve Team Status: Inactive Member Role Status Dates Kinjal Triana VSC, DATA CODER OPERATOR-C Primary Care Provider Active Start: February 18, 2025 End: February 18, 2025 Dr. Danish Li MD Attending Provider Active Sta rt: February 18, 2025 End: February 18, 2025 Dr. Danish Li MD Emergency Provider Active Sta rt: February 18, 2025 End: February 18, 2025 Team Status: Inactive Member Role Status Dates Dr. Danish Li MD Emergency Provider Active Sta rt: May 03, 2025 End: May 03, 2025 Dr. Sandy Miller DO Primary Care Provider Acti ve Start: May 03, 2025 End: May 03, 2025 Aws Architect Relationship Specialty Start Date End Date Ramón Miller DO [address] [place] [id number] PCP - General Family Medicine 02/22/25 Aws Architect Relationship Specialty Start Date End Date Ramón Miller DO [address] [place] [id number] PCP - General Family Medicine 02/22/25 Aws Architect Relationship Specialty Start Date End Date Ramón Miller DO [address] [place] [id number] PCP - General Family Medicine 02/22/25 Source Comments (unrecognize d section and content) In the event this informatio n is protected by the Federal Confidentiality of Alcohol and Drug Abuse Patient Records regulations: The Federal rules restrict any use of the information to criminally investigate or prosecute any alcohol or drug abuse patient.[facility] the event this information is protected by the Federal Confidentiality of Alcohol and Drug Abuse Patient Records regulations: The Federal rules restrict any use of the information to criminally investigate or prosecute any alcohol or drug abuse patient.[facility] the event this information is protected by the Federal Confidentiality of Alcohol and Drug Abuse Patient Records regulations: The Federal rules restrict any use of the information to criminally investigate or prosecute any alcohol or drug abuse patient.[facility] the event this information is protected by the Federal Confidentiality of Alcohol and Drug Abuse Patient Records regulations: The Federal rules restrict any use of the information to criminally investigate or prosecute any alcohol or drug abuse patient.[facility]In the event this information is protected by the Federal Confidentiality of Alcohol and Drug Abuse Patient Records regulations: The Federal rules restrict any use of the information to criminally investigate or prosecute any alcohol or drug abuse patient.[facility] the event this information is protected by the Federal Confidentiality of Alcohol and Drug Abuse Patient Records regulations: The Federal rules restrict any use of the information to criminally investigate or prosecute any alcohol or drug abuse patient.[facility] the event this information is protected by the Federal Confidentiality of Alcohol and Drug Abuse Patient Records regulations: The Federal rules restrict any use of the information to criminally investigate or prosecute any alcohol or drug abuse patient.[facility] the event this information is protected by the Federal Confidentiality of Alcohol and Drug Abuse Patient Records regulations: The Federal rules restrict any use of the information to criminally investigate or prosecute any alcohol or drug abuse patient.[facility] the event this information is protected by the Federal Confidentiality of Alcohol and Drug Abuse Patient Records regulations: The Federal rules restrict any use of the information to criminally investigate or prosecute any alcohol or drug abuse patient.[facility]In the event this information is protected by the Federal Confidentiality of Alcohol and Drug Abuse Patient Records regulations: The Federal rules restrict any use of the information to criminally investigate or prosecute any alcohol or drug abuse patient.[facility]In the event this information is protected by the Federal Confidentiality of Alcohol and Drug Abuse Patient Records regulations: The Federal rules restrict any use of the information to criminally investigate or prosecute any alcohol or drug abuse patient.[facility]In the event this information is protected by the Federal Confidentiality of Alcohol and Drug Abuse Patient Records regulations: The Federal rules restrict any use of the information to criminally investigate or prosecute any alcohol or drug abuse patient.[facility]In the event this information is protected by the Federal Confidentiality of Alcohol and Drug Abuse Patient Records regulations: The Federal rules restrict any use of the information to criminally investigate or prosecute any alcohol or drug abuse patient.[facility]In the event this information is protected by the Federal Confidentiality of Alcohol and Drug Abuse Patient Records regulations: The Federal rules restrict any use of the information to criminally investigate or prosecute any alcohol or drug abuse patient.[facility]In the event this information is protected by the Federal Confidentiality of Alcohol and Drug Abuse Patient Records regulations: The Federal rules restrict any use of the information to criminally investigate or prosecute any alcohol or drug abuse patient.[facility] HospitalIn the event this information is protected by the Federal Confidentiality of Alcohol and Drug Abuse Patient Records regulations: The Federal rules restrict any use of the information to criminally investigate or prosecute any alcohol or drug abuse patient.[facility] HospitalIn the event this information is protected by the Federal Confidentiality of Alcohol and Drug Abuse Patient Records regulations: The Federal rules restrict any use of the information to criminally investigate or prosecute any alcohol or drug abuse patient.[facility] HospitalIn the event this information is protected by the Federal Confidentiality of Alcohol and Drug Abuse Patient Records regulations: The Federal rules restrict any use of the information to criminally investigate or prosecute any alcohol or drug abuse patient.[facility] HospitalIn the event this information is protected by the Federal Confidentiality of Alcohol and Drug Abuse Patient Records regulations: The Federal rules restrict any use of the information to criminally investigate or prosecute any alcohol or drug abuse patient.[facility] HospitalIn the event this information is protected by the Federal Confidentiality of Alcohol and Drug Abuse Patient Records regulations: The Federal rules restrict any use of the information to criminally investigate or prosecute any alcohol or drug abuse patient.[facility] Reason for Visit (unrecogniz ed section [...] CT SOFT TISSUE NECK W/O CONTRAST MATERIAL Ramón Miller, DO [address] [place] [address] Phone: tel: fax: [facility] [phone] Referral ID Status Reason Start Date Expiration Date V isits Requested Visits Authorized [id number] Closed Auto-Generate d Referral 02/22/2025 03/24/2026 [address] results and echo results. Patient requesting skin biopsy results Follow Up 3 week recheck Suture Removal Placed 02/28/25 Reason Comments New Patient Psoriasis Specialty Diagnoses / Procedures Referred By [employer] Referred To Contact Dermatology Diagnoses Psoriasis Procedures CONSULT TO DERMATOLOGY OFFICE/OUTPATIENT [facility]3] 60 MINUTES Ramón Miller, DO [address] [place] [address] Phone: tel: fax: Referral ID Status Reason Start Date Expiration Date V isits Requested Visits Authorized [id number] Closed PCP Requested Referral 02/22/2025 02/22/2026 1 1 Reason Comments New patient, to establish relationship M ass check up Reason Comments Medication Request Refills Reason Comments Appointment Bariatric (unrecognized sect ion and content) No Status Records FoundNo Status Records FoundNo Status Records FoundNo Status Records FoundNo Status Records Found INFORMATION SOURCE (unrecogn ized section and content) DATE CREATED AUTHOR 02/24/2025 [facility] DATE CREATED AUTHOR AUTHOR'S ORGANIZ ATION 05/13/2025 [facility] DATE CREATED AUTHOR AUTHOR'S ORGANIZ ATION 05/19/2025 [facility] [employer] [facility] DATE CREATED AUTHOR AUTHOR'S ORGANIZ ATION 06/22/2025 [facility] DATE CREATED AUTHOR AUTHOR'S ORGANIZ ATION 09/08/2025 [facility] FOR RECORDS PERTAINING TO PATIENTS WHO ARE [...] BE BASED ON THE PRIMARY CLINICAL RECORDS. [facility] [employer] [facility] provides no warranty or guarantee of the accuracy or completeness of information in this document.
[2025-10-26 18:45] VITALS: BP 150/80; PULSE 65; RESP 16; TEMP 36.7; O2SAT 97
== END 2025-10-26 18:46 | disposition home or self-care (01) ==
PROVIDERS: Emergency Provider Emergency Medicine; PCP Family Medicine; Visit Provider Emergency Medicine
DX: J06.9 Acute upper respiratory infection, unspecified (principal); E11.9 Type 2 diabetes mellitus without complications; I10 Essential (primary) hypertension; M79.10 Myalgia, unspecified site; Z87.891 Personal history of nicotine dependence; R05.9 Cough, unspecified; R11.0 Nausea
CPT/HCPCS: 82962; 87631; 99282